=== PATIENT | female | born 1970 | race Caucasian/White ===

== ENCOUNTER 2023-06-05 09:24 | Outpatient (OUT) | payer MEDICARE, MEDICAID, SELFPAY ==
--- NOTE | 2023-06-05 09:33 | XR_ITS ---
The [address] [address] Patient Name: KEITH WASHINGTON MRN: [id number] date: 1970 Sex: F Assigned Patient Location: [facility] Current Patient Location: [facility] Accession/Order Number: [id number] Exam Date: 06/05/2023 09:39 Report Date: 06/05/2023 10:04 At the request of: QUETA COREA Procedure: XR chest 2V EXAM: XR chest 2V HISTORY: Pre Surgical Clearance COMPARISON: None. TECHNIQUE: PA and lateral views of the chest. FINDINGS: The cardiomediastinal silhouette is normal. No focal consolidation is identified. There is no pneumothorax. No pleural effusion is noted. The osseous structures are intact. XR/XR chest 2V IMPRESSION: No acute cardiopulmonary process. Electronically authenticated by: SCOTTY RAZO Date: 06/05/2023 10:04
== END 2023-06-05 09:25 | disposition home or self-care (01) ==
LOC: RAD 09:27
PROVIDERS: PCP Family Medicine; Visit Provider Orthopaedic Surgery
DX: Z01.818 Encounter for other preprocedural examination (principal); G56.01 Carpal tunnel syndrome, right upper limb
CPT/HCPCS: 71046

== ENCOUNTER 2023-07-25 14:14 | Outpatient (OUT) | payer MEDICARE, MEDICAID, SELFPAY ==
--- NOTE | 2023-07-25 14:22 | MM_ITS ---
Patient: KEITH WASHINGTON Exam Date: 07/25/2023 : 1970 Gender:F Ordering : DR LEONA FERRARO Admission #: [id number] Family : DR ERIK SMITH M.D. Order #: [id number] CLICK HERE TO VIEW EXAM RADIOLOGY REPORT PROCEDURE: MM TOMOSYNTHESIS SCREENING BI COMPARISON: MG MAMM SCREEN PATRICIA W CAD, 04/08/2019. MG MAMM SCREEN 3D PATRICIA CAD, 09/14/2021. INDICATIONS: Screening Calculator Name NCI Breast Cancer Risk Assessment Tool 5 Year Breast Cancer Risk 1.00% Lifetime Breast Cancer Risk 6.70% Personal Breast Cancer No Personal Ovarian Cancer No Treatments None Family Cancers None LOCATION: [facility] BREAST COMPOSITION: Scattered areas fibroglandular density. FINDINGS: DIAGNOSTIC CATEGORY 1--NEGATIVE. NO CHANGE FROM COMPARISON ASSESSMENT. Scattered benign-appearing calcifications are present. Scattered benign-appearing lymph nodes are present. RIGHT BREAST: No significant suspicious finding. LEFT BREAST: No significant suspicious finding. RECOMMENDATIONS: ROUTINE MAMMOGRAM AND CLINICAL EVALUATION IN 12 MONTHS. PLEASE NOTE: A NORMAL MAMMOGRAM DOES NOT EXCLUDE THE POSSIBILITY OF BREAST CANCER. A CLINICALLY SUSPICIOUS PALPABLE LUMP SHOULD BE BIOPSIED. Dictated by: Aristides Dempsey MD on 07/26/2023 at 07:53 Approved by: Aristides Dempsey MD on 07/26/2023 at 07:55
== END 2023-07-25 14:15 | disposition home or self-care (01) ==
LOC: MAMMO 14:14
PROVIDERS: PCP Family Medicine; Visit Provider Physician Assistant
DX: Z12.31 Encounter for screening mammogram for malignant neoplasm of breast (principal)
CPT/HCPCS: 77063; 77067

== ENCOUNTER 2023-09-04 09:45 | Outpatient (OUT) | payer MEDICARE, MEDICAID, SELFPAY ==
--- NOTE | 2023-09-04 09:52 | XR_ITS ---
The [address] [address] Patient Name: KEITH WASHINGTON MRN: [id number] date: 1970 Sex: F Assigned Patient Location: [facility] Current Patient Location: [facility] Accession/Order Number: [id number] Exam Date: 09/04/2023 09:57 Report Date: 09/04/2023 11:12 At the request of: LEONA CHEN Procedure: XR chest 2V EXAM: XR chest 2V HISTORY: Acute Cough R05.1 COMPARISON: 06/05/2023 TECHNIQUE: PA and lateral views of the chest. FINDINGS: The cardiomediastinal silhouette is normal. No focal consolidation is identified. There is no pneumothorax. No pleural effusion is noted. The osseous structures are intact. XR/XR chest 2V IMPRESSION: No acute cardiopulmonary process. Electronically authenticated by: SCOTTY RAZO Date: 09/04/2023 11:12
== END 2023-09-04 09:46 | disposition home or self-care (01) ==
LOC: RAD 09:48
PROVIDERS: PCP Family Medicine; Visit Provider Physician Assistant
DX: R05.1 Acute cough (principal)
CPT/HCPCS: 71046

== ENCOUNTER 2024-03-24 08:45 | Emergency (ER) | payer MEDICARE, MEDICAID, SELFPAY ==
[2024-03-24 08:57] VITALS: BP 107/66; PULSE 73; TEMP 36.8; O2SAT 96; BMI 37.1
--- OUTSIDE RECORDS SUMMARY | 2024-03-24 09:08 | XMS_ITS | CCD ---
Author Organization [facility] CliniSysd Care Team Providers Care Batting Machine Operator Name Role Phone GUIDO, DR HUMPHREY Butler Consulting Unavailable SARAH, DR VALENCIA Primary Care Unavailable MATEO, DR VARELA Attending Unavailable MATEO, DR VARELA Admitting Unavailable MATEO, DR VARELA Consulting Unavailable MALDONADORAMONE Consulting Unavailable RAMONE OKEEFE Attending Unavailable RAMONE OKEEFE Admitting Unavailable SARAH, DR VALENCIA Primary Care Unavailable SARAH, DR VALENCIA Consulting Unavailable SARAH, DR VALENCIA Primary Care Unavailable SARAH, DR VALENCIA Attending Unavailable SARAH, DR VALENCIA Admitting Unavailable WILLIAM, AMAN Consulting Unavailable SARAH, DR VALENCIA Consulting Unavailable MATEO, DR VARELA Primary Care Unavailable SARAH, DR VALENCIA Attending Unavailable SARAH, DR VALENCIA Admitting Unavailable Zieber, DR Brantley Consulting Unavailable MATEO, DR VARELA Consulting Unavailable SARAH, DR VALENCIA Primary Care Unavailable MATEO, DR VARELA Attending Unavailable MATEO, DR VARELA Admitting Unavailable ARIAS, RIC Consulting Unavailable SARAH, DR VALENCIA Primary Care Unavailable ARIAS, RIC Attending Unavailable ARIAS, RIC Admitting Unavailable Zieber, DR Brantley Consulting Unavailable SARAH, DR VALENCIA Primary Care Unavailable ARIAS, RIC Attending Unavailable ARIAS, RIC Admitting Unavailable ARIAS, RIC Consulting Unavailable SARAH, DR VALENCIA Consulting Unavailable SARAH, DR VALENCIA Primary Care Unavailable SARAH, DR VALENCIA Attending Unavailable SARAH, DR VALENCIA Admitting Unavailable Humphrey Marvin Consulting Unavailable SARAH, DR VALENCIA Primary Care Unavailable ARIAS, RIC Attending Unavailable ARIAS, RIC Admitting Unavailable ARIAS, RIC Consulting Unavailable PAY, DR RIZO Consulting Unavailable BLANCHE GALINDO Attending Unavailable BLANCHE GALINDO Admitting Unavailable SARAH, DR VALENCIA Primary Care Unavailable BLANCHE GALINDO Consulting Unavailable GUIDO, DR HUMPHREY Butler Consulting Unavailable RAMONE OKEEFE Attending Unavailable RAMONE OKEEFE Admitting Unavailable SARAH, DR VALENCIA Primary Care Unavailable MALDONADO, RAMONE Consulting Unavailable ALMA ROSA SMITH Primary Care Physician Dax Block Referring Unavailable Dax Block Attending Unavailable Dax Block Admitting Unavailable Alma Rosa Smith MD Primary Care Provider Alma Rosa Smith MD Unavailable JULIA CHEN Attending Unavailable HEMJULIA HARPER Attending Unavailable HEMJULIA HARPER Attending Unavailable NICHOLE GALINDO Attending Unavailable FERNANDO LOPEZ Attending Unavailable HEMMERJULIA Attending Unavailable HEMJULIA HARPER Attending Unavailable Isak Castillo Attending Unavailab Isak Olivera Admitting Unavailab Alma Rosa Trejo Primary Care Unavailable Allergies Allergy Classification Reported Allergen(s) Allergy Type Date of Onset Reaction(s) Facility (2 sources) Azithromycin; Translations: [Zithromax] Drug Allergy [facility] (1 source) Cephalexin Drug Allergy 1 [facility] (1 source) Corticosteroids Drug allergy (disorder) [facility] (2 sources) Morphine; Translations: [morphine] Drug Allergy [facility] (2 sources) moxifloxacin; Translations: [Avelox] Drug Allergy [facility] (2 sources) Nitrofurantoin; Translations: [Macrobid] Drug Allergy [facility] (2 sources) Azithromycin; Translations: [azithromycin] Drug Allergy 3 Eruption of skin (disorder), Unknown [facility] [place] (2 sources) Morphine; Translations: [morphine] Drug Allergy 6 Vomiting (disorder), Unknown [facility] [place] (2 sources) moxifloxacin; Translations: [moxifloxacin] Drug Allergy 3 Eruption of skin (disorder), Rash, Unknown [facility] (1 source) NITROFURANTOIN, MACROCRYSTALS / Nitrofurantoin, Monohydrate; Translations: [nitrofurantoin] Drug Allergy Skin irritation (disorder) [facility] [place] (1 source) Cephalexin Drug Allergy 3 Rash [facility] (1 source) Corticosteroids and derivatives Drug Allergy 6 Unknown [facility] (1 source) Nitrofurantoin Drug Allergy 3 Unknown [facility] (1 source) Nitrofurantoin Drug Allergy 3 Unknown [facility] Medications Current Medications Medication Drug Class(es) Dates Sig (Normalized) Sig (Original) Percocet (2 sources) Opioid Agonist Start: 03-15-2020 Percocet 7.5/3 25 1 tab(s), Oral, BID Pain 1-5, Refill(s) 0 Start Date: 03/15/20 Status: Ordered take 1 tablet by clif th every twelve hours oxyCODONE-acetaminophen (Percocet) 5-325 MG tablet Take 1 tablet by mouth every 12 (twelve) hours. PRN 0 Active [id number] 200 actuat albuterol 0.09 mg/actuat metered dose inhaler (1 source) beta2-Adrenergic Agonist Start: 10-12-2022 take 1 puff(s) by inhalation every four hours for wheezing Ventolin HFA 108 (90 Base) MCG/ACT inhaler Inhale 1 puff every 4 (four) hours if needed for wheezing or shortness of breath. 0 10/12/2022 Active albuterol 0.833 mg/ml / ipratropium bromide 0.167 mg/ml inhalation solution (2 sources) Anticholinergic, beta2-Adrenergic Agonist Start: 10-12-2022 ipratropium-albut mike (Duo-Neb) 0.5-2.5 mg/3 mL nebulizer solution Take 3 mL by nebulization every 6 (six) hours. PRN 0 10/12/2022 Active Start: 03-15-2020 albuterol-ipra tropium See Instructions, Refill(s) 0, 2 inhalations 6 times per day Start Date: 03/15/20 Status: Ordered atenolol 50 mg oral tablet (2 sources) beta-Adrenergic Britt Start: 03-15-2020 take 1 tablet by mouth once daily atenolol 50 mg Tab 50 mg = 1 tab(s), Oral, Daily, Refills(s) 0 Start Date: 03/15/20 Status: Ordered clonazePAM 1 mg oral tablet (2 sources) Benzodiazepine Start: 03-15-2020 take 1 tablet by mouth three times daily Klonopin 1 mg Tab 1 mg = 1 tab(s), Oral, TID, Refills(s) 0 Start Date: 03/15/20 Status: Ordered docusate sodium 100 mg oral capsule (1 source) Docusate Sodium (DSS) 100 MG capsule Take 100 mg by mouth every 12 (twelve) hours if needed. 0 Active empagliflozin 10 mg oral tablet (1 source) Sodium-Glucose Cotransporter 2 Inhibitor take 1 tablet by mouth once daily Jardiance 10 MG Take 1 tablet by mouth 1 (one) time each day at the same time. 0 Active escitalopram 20 mg oral tablet (2 sources) Serotonin Reuptake Inhibitor Start: 03-15-2020 take 1 tablet by mouth once daily escitalopram (Lexapro) 20 MG tablet Take 1 tablet by mouth 1 (one) time each day. 0 03/21/2023 Active fluticasone propionate 0.05 mg/actuat metered dose nasal spray (1 source) Corticosteroid fluticasone (Flonase) 50 MCG/ACT nasal spray 1 spray 1 (one) time each day at the same time. 0 Active fluticasone 0.05 mg/inh Nasal [place] (1 source) Start: 03-15-2020 fluticasone 0.05 mg/inh Nasal [place] 1 spray(s), Nasal, BID, Refill(s) 0 Start Date: 03/15/20 Status: Ordered ibuprofen 800 mg oral tablet (1 source) Nonsteroidal Anti-inflammatory Drug Start: 06-06-2023 take 1 tablet by mouth three times daily after mealtime ibuprofen 800 MG tablet TAKE 1 TABLET BY MOUTH THREE TIMES A DAY AFTER MEALS 0 06/06/2023 Active meclizine hydrochloride 25 mg oral tablet (2 sources) Antiemetic Start: 03-15-2020 take 1 tablet by mouth three times daily Antivert 25 mg Tab 25 mg = 1 tab(s), Oral, TID, Refills(s) 0 Start Date: 03/15/20 Status: Ordered take 1 tablet by clif th every twenty-four hours as needed for nausea meclizine (Antivert) 25 MG tablet Take 1 tablet by mouth Daily as needed for nausea. 0 Active meloxicam 15 mg oral tablet (2 sources) Nonsteroidal Anti-inflammatory Drug Start: 03-15-2020 take 1 tablet by mouth once daily as needed for pain Mobic 15 mg Tab 15 mg = 1 tab(s), Oral, Daily, PRN Pain, Refills(s) 0 Start Date: 03/15/20 Status: Ordered Multivitamin, Therapeutic w/ Minerals (1 source) Start: 03-16-2020 take 1 tablet by mouth once daily Multivitamin, Therapeutic w/ Minerals 1 tab(s), Oral, Daily, Refill(s) 0 Start Date: 03/16/20 Status: Ordered omeprazole 20 mg delayed release oral capsule (2 sources) Proton Pump Inhibitor Start: 03-15-2020 take 1 capsule by mouth twice daily omeprazole 20 mg Cap-DR 20 mg = 1 cap(s), Oral, BID Start Date: 03/15/20 Status: Ordered ondansetron 4 mg oral tablet (1 source) Serotonin-3 Receptor Antagonist ondansetron (Zofran) 4 MG tablet Take 4 mg by mouth every 12 (twelve) hours if needed. 0 Active Potassium Chloride (2 sources) Start: 03-15-2020 Klor-Con M20 20 mEq, Oral, Daily, Refills(s) 0 Start Date: 03/15/20 Status: Ordered take 1 tablet by mouth once jonathan y potassium chloride CR (Klor-Con M20) 20 MEQ ER tablet Take 1 tablet by mouth 1 (one) time each day at the same time. 0 Active SITagliptin 100 mg oral tablet (1 source) Dipeptidyl Peptidase 4 Inhibitor Start: 03-15-2020 take 1 tablet by mouth once daily Januvia 100 mg Tab 100 mg = 1 tab(s), Oral, Daily Start Date: 03/15/20 Status: Ordered Tirzepatide (Mounjaro) 5 MG/0.5ML solution pen-injector (1 source) Start: 09-21-2023 Tirzepatide (Mounjaro) 5 MG/0.5ML solution pen-injector Indications: Type 2 diabetes mellitus with stage 2 chronic kidney disease, without long-term current use of insulin ([facility]) INJECT 5 MG UNDER THE SKIN ONE TIME PER WEEK 2 mL 2 09/21/2023 Active tiZANidine 4 mg oral tablet (2 sources) Central alpha-2 Adrenergic Agonist Start: 03-25-2023 take 1 tablet by mouth every eight hours as needed tiZANidine (Zanaflex) 4 MG tablet Take 1 tablet by mouth every 8 (eight) hours if needed for muscle spasms. 0 03/25/2023 Active Start: 03-15-2020 take 1 tablet by clif th twice daily as needed for muscle spasms Zanaflex 4 mg Tab 4 mg = 1 tab(s), Oral, BID, PRN Spasm, Refills(s) 0 Start Date: 03/15/20 Status: Ordered 30 actuat umeclidinium 0.0625 mg/actuat / vilanterol 0.025 mg/actuat dry powder inhaler (1 source) Anticholinergic, beta2-Adrenergic Agonist Start: 10-12-2022 take 1 puff(s) by inhalation once daily Umeclidinium-Vilanterol (Anoro Ellipta) 62.5-25 MCG/ACT aerosol powder Inhale 1 puff 1 (one) time each day at the same time. 0 10/12/2022 Active Completed/Discontinued Medications Medication Drug Class(es) Dates Sig (Normalized) Sig (Original) levothyroxine (2 sources) l-Thyroxine Start: 03-15-2020 take 1 tablet by mouth once daily Synthroid 75 mcg (0.075 mg) Tab 75 microgram = 1 tab(s), Oral, Daily, Refills(s) 0 Start Date: 03/15/20 Status: Ordered take 1 tablet by mouth before me altime Synthroid 75 MCG tablet Take 1 tablet by mouth in the morning. Take before meals. 0 Active Problems Active Problems Problem Classification Problem Date Documented Da te Episodic/Chronic Anxiety disorders (4 sources) Anxiety disorder, unspecified; Translations: [Anxiety] Onset: 02-28-2008 03-15-2020 Chronic Asthma (2 sources) Uncomplicated moderate persistent asthma; Translations: [Moderate persistent asthma, uncomplicated] Onset: 02-28-2008 Resolved: 04-16-2023 04-16-2023 Chronic Chronic kidney disease (1 source) Chronic kidney disease stage 3A ; Translations: [Stage 3a chronic kidney disease (HCC)] Onset: 03-31-2023 03-31-2023 Chronic Chronic obstructive pulmonary disease and bronchiectasis (5 sources) Chronic obstructive pulmonary disease, unspecified; Translations: [Chronic obstructive lung disease] Onset: 02-14-2022 03-15-2020 Chronic Conditions associated with dizziness or vertigo (1 source) Meniere's disease; Translations: [Meniere's disease, unspecified ear] Onset: 04-15-2023 04-15-2023 Chronic Diabetes mellitus with complications (2 sources) Type 2 diabetes mellitus; Translations: [Type 2 diabetes mellitus with diabetic chronic kidney disease] Onset: 10-18-2017 Resolved: 04-16-2023 03-31-2023 Chronic Disorders of lipid metabolism (1 source) Pure hypercholesterolemia ; Translations: [Pure hypercholesterolemia , unspecified] Onset: 03-31-2023 03-31-2023 Chronic Esophageal disorders (3 sources) Gastro-esophageal reflux disease without esophagitis; Translations: [Gastroesophageal reflux disease] Onset: 04-14-2022 03-15-2020 Chronic Essential hypertension (4 sources) Essential (primary) hypertension; Translations: [Hypertensive disorder] Onset: 08-22-2021 03-15-2020 Chronic Menstrual disorders (4 sources) Excessive and frequent menstruation with regular cycle; Translations: [EXCESS FREQ MENSTRUATION W/REG CYCL] Onset: 07-22-2022 Chronic Mood disorders (4 sources) Major depressive disorder, single episode, unspecified; Translations: [Depressive disorder] Onset: 11-22-2015 03-15-2020 Chronic Other ear and sense organ disorders (1 source) Sensorineural hearing loss, bilateral; Translations: [Sensorineural hearing loss, bilateral] Onset: 03-31-2023 03-31-2023 Chronic Other ear and sense organ disorders (1 source) Chronic non-infective otitis externa; Translations: [Other otitis externa, bilateral] Onset: 04-15-2023 04-15-2023 Chronic Other endocrine disorders (1 source) Drug-induced adrenocortical insufficiency; Translations: [Drug-induced adrenocortical insufficiency] Onset: 04-15-2023 04-15-2023 Chronic Other female genital disorders (1 source) Abnormal uterine bleeding; Translations: [Other specified abnormal uterine and vaginal bleeding] Onset: 04-15-2023 04-15-2023 Chronic Other gastrointestinal disorders (1 source) Irritable bowel syndrome without diarrhea; Translations: [IRRITABLE BOWEL SYND W/O DIARRHEA] Onset: 02-14-2022 Chronic Other gastrointestinal disorders (2 sources) Irritable bowel syndrome; Translations: [Irritable bowel syndrome without diarrhea] Onset: 04-07-2008 03-15-2020 Chronic Other inflammatory condition of skin (1 source) Rosacea; Translations: [Other rosacea] Onset: 04-15-2023 04-15-2023 Chronic Other nervous system disorders (1 source) Bilateral carpal tunnel syndrome; Translations: [Carpal tunnel syndrome, bilateral upper limbs] Onset: 04-24-2023 04-24-2023 Chronic Other nervous system disorders (1 source) Disorder of muscle; Translations: [Myopathy, unspecified] Onset: 07-26-2023 07-26-2023 Chronic Other nutritional; endocrine; and metabolic disorders (1 source) Morbid obesity; Translations: [Morbid (severe) obesity due to excess calories] Onset: 04-15-2023 04-15-2023 Chronic Other upper respiratory infections (2 sources) Chronic pansinusitis; Translations: [Chronic pansinusitis] Onset: 03-21-2019 Resolved: 04-16-2023 04-16-2023 Chronic Substance-related disorders (2 sources) Nicotine dependence, cigarettes, uncomplicated; Translations: [Smoker] Onset: 08-22-2021 03-31-2023 Chronic Thyroid disorders (3 sources) Hypothyroidism, unspecified; Translations: [Hypothyroidism] Onset: 02-28-2008 03-15-2020 Chronic Unclassified (4 sources) COUGH, UNSPECIFIED; Translations: [COUGH, UNSPECIFIED] Onset: 04-17-2022 Unclassified (4 sources) CONTACT W/AND (SUSP) EXPOS COVID-19; Translations: [CONTACT W/AND (SUSP) EXPOS COVID-19] Onset: 04-17-2022 Past or Other Problems Problem Classification Problem Date Documented Da te Episodic/Chronic Conditions associated with dizziness or vertigo (2 sources) Dizziness and giddiness; Translations: [Dizziness] Onset: 11-22-2015 04-16-2023 Episodic Diseases of mouth; excluding dental (2 sources) Chronic glossitis; Translations: [Glossitis] Onset: 05-16-2023 05-16-2023 Episodic E Codes: Adverse effects of medical drugs (1 source) Antidepressant drug adverse reaction; Translations: [Adverse effect of unspecified antidepressants, initial encounter] Onset: 11-22-2015 04-16-2023 Episodic Gastritis and duodenitis (1 source) Acute gastritis; Translations: [Acute gastritis without bleeding] Onset: 02-28-2008 Resolved: 04-16-2023 04-16-2023 Episodic Hepatitis (1 source) Unspecified viral hepatitis C without hepatic coma; Translations: [UNS VIRAL HEPATITIS C W/O HEP COMA] Onset: 10-06-2021 Episodic Intestinal infection (1 source) Rotaviral enteritis; Translations: [ROTAVIRAL ENTERITIS] Onset: 02-14-2022 Episodic Malaise and fatigue (3 sources) Other fatigue; Translations: [OTHER FATIGUE] Onset: 08-20-2021 Episodic Mood disorders (1 source) Mood disorders Onset: 04-16-2023 04-16-2023 Neoplasms of unspecified nature or uncertain behavior (1 source) 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; Translations: [Neoplasm of uncertain behavior of other specified digestive organs] Onset: 04-15-2023 04-15-2023 Episodic Other aftercare (1 source) Other salvage determiner (current) drug therapy; Translations: [OTH HALF-WAY CURRENT DRUG THERAPY] Onset: 04-14-2022 Episodic Other and unspecified benign neoplasm (1 source) 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; Translations: [Benign neoplasm of liver] Onset: 09-10-2009 04-15-2023 Episodic Other and unspecified benign neoplasm (1 source) Benign neoplasm of skin; Translations: [Other benign neoplasm of skin, unspecified] Onset: 09-27-2009 04-15-2023 Episodic Other circulatory disease (1 source) Personal history of transient ischemic attack (TIA), and cerebral infarction without residual deficits; Translations: [PERS HX TIA AND CI NO RESID DEFICIT] Onset: 02-14-2022 Episodic Other circulatory disease (2 sources) History of transient ischemic attack; Translations: [Personal history of transient ischemic attack (TIA), and cerebral infarction without residual deficits] Onset: 07-31-2023 03-15-2020 Episodic Other connective tissue disease (1 source) Myalgia, unspecified site; Translations: [MYALGIA UNSPECIFIED SITE] Onset: 04-14-2022 Episodic Other connective tissue disease (1 source) Abdominal muscle pain; Translations: [Myalgia, other site] Onset: 02-28-2008 04-15-2023 Episodic Other connective tissue disease (1 source) Muscle pain; Translations: [Myalgia, unspecified site] Onset: 07-04-2023 07-04-2023 Episodic Other ear and sense organ disorders (1 source) Bilateral tinnitus; Translations: [Tinnitus, bilateral] Onset: 04-15-2023 04-15-2023 Episodic Other female genital disorders (1 source) Abnormal vaginal bleeding; Translations: [Abnormal uterine and vaginal bleeding, unspecified] Onset: 07-26-2016 Resolved: 04-16-2023 04-16-2023 Chronic Other female genital disorders (1 source) Swelling of vagina; Translations: [Noninflammatory disorder of vagina, unspecified] Onset: 04-15-2023 04-15-2023 Episodic Other gastrointestinal disorders (3 sources) Diarrhea, unspecified; Translations: [DIARRHEA UNSPECIFIED] Onset: 02-10-2022 Episodic Other gastrointestinal disorders (1 source) History of gastritis; Translations: [Personal history of other diseases of the digestive system] Onset: 04-16-2023 04-16-2023 Episodic Other inflammatory condition of skin (4 sources) Pruritus, unspecified; Translations: [PRURITUS UNSPECIFIED] Onset: 09-26-2021 Episodic Other nervous system disorders (1 source) Abnormal gait; Translations: [Unspecified abnormalities of gait and mobility] Onset: 04-15-2023 04-15-2023 Episodic Other nervous system disorders (1 source) Notalgia paresthetica; Translations: [Paresthesia of skin] Onset: 04-15-2023 04-15-2023 Episodic Other nutritional; endocrine; and metabolic disorders (2 sources) Body mass index 40+ - severely obese; Translations: [Body mass index (BMI) 45.0-49.9, adult] Onset: 07-31-2023 Resolved: 07-31-2023 03-16-2020 Chronic Other screening for suspected conditions (not mental disorders or infectious disease) (4 sources) Encounter for screening mammogram for malignant neoplasm of breast; Translations: [ENC SCR MAMMO MALIG NEOPLASM BREAST] Onset: 09-14-2021 Episodic Other skin disorders (2 sources) Infection of sebaceous cyst; Translations: [Sebaceous cyst] Onset: 07-31-2023 03-16-2020 Episodic Other upper respiratory infections (1 source) Acute pharyngitis, unspecified; Translations: [ACUTE PHARYNGITIS UNSPECIFIED] Onset: 12-30-2021 Episodic Pancreatic disorders (not diabetes) (5 sources) Cyst of pancreas; Translations: [Cyst of pancreas] Onset: 08-11-2022 Episodic Residual codes; unclassified (1 source) Acquired absence of other specified parts of digestive tract; Translations: [ACQ ABSENCE OTH PART DIGESTV TRACT] Onset: 02-14-2022 Episodic Residual codes; unclassified (1 source) Patient's other noncompliance with medication regimen; Translations: [PT OTH NONCOMPLIANCE W/ MED REGIMEN] Onset: 08-22-2021 Episodic Spondylosis; intervertebral disc disorders; other back problems (1 source) Low back pain; Translations: [Low back pain] Onset: 02-28-2008 04-16-2023 Episodic Unclassified (1 source) COUGH, UNSPECIFIED; Translations: [COUGH, UNSPECIFIED] Onset: 04-20-2022 Unclassified (1 source) CONTACT W/AND (SUSP) EXPOS COVID-19; Translations: [CONTACT W/AND (SUSP) EXPOS COVID-19] Onset: 04-13-2022 Results Test Name Value Interpretation Reference Range Facility Physician Orderon 06-05-2023 Physician Order [id number]:127 Normal [facility] BMPon 05-09-2023 Anion gap [Moles/Vol] 10 mmol/L Normal 6-16 [facility] Comment on above: Performed By: #### 2 [id number] #### [facility] [address] [place] [address] Calcium [Mass/Vol] 9.1 mg/dL Normal 8.9-11.1 [facility] Comment on above: Performed By: #### 2 [id number], [id number] #### [facility] [address] [place] [address] Chloride [Moles/Vol] 104 mmol/L Normal 101-111 [facility] Comment on above: Performed By: #### 2 [id number], [id number] #### [facility] [address] [place] [address] CO2 [Moles/Vol] 27 mmol/L Normal 21-31 [facility] Comment on above: Performed By: #### 2 [id number], [id number] #### [facility] [address] [place] [address] Creatinine [Mass/Vol] 0.7 mg/dL Normal 0.5-1.3 [facility] Comment on above: Performed By: #### 2 [id number], [id number] #### [facility] [address] [place] [address] Glucose [Mass/Vol] 136 mg/dL Normal 55-199 [facility] Comment on above: Result Comment: If t his glucose result represents a fasting glucose, interpretation should refer to the following reference range: 55-99 mg/dL Performed By: #### 2 [id number], [id number] #### [facility] [address] [place] [address] Potassium [Moles/Vol] 4.4 mmol/L Normal 3.5-5.3 [facility] Comment on above: Performed By: #### 2 [id number], [id number] #### [facility] [address] [place] [address] Sodium [Moles/Vol] 137 mmol/L Normal 135-145 [facility] Comment on above: Performed By: #### 2 [id number], [id number] #### [facility] [address] [place] [address] Urea nitrogen [Mass/Vol] 8 mg/dL Normal 5-21 [facility] Comment on above: Performed By: #### 2 [id number], [id number] #### [facility] [address] [place] [address] Urea nitrogen/Creatinine [Mass ratio] 11 No Units Normal 10-20 [facility] Comment on above: Performed By: #### 2 [id number], [id number] #### [facility] [address] [place] [address] CBC w/Indiceson 05-09-2023 Erythrocyte distribution width (RBC) [Ratio] 14.6 % High 10.9-14.2 [facility] Comment on above: Performed By: #### 2 [id number], [id number] #### [facility] [address] [place] [address] Hematocrit (Bld) [Volume fraction] 43.8 % Normal 34.0-46.0 [facility] Comment on above: Performed By: #### 2 [id number], [id number] #### [facility] [address] [place] [address] Hemoglobin (Bld) [Mass/Vol] 14.9 g/dL Normal 12.0-16.0 [facility] Comment on above: Performed By: #### 2 [id number], [id number] #### [facility] [address] [place] [id number] MCH (RBC) [Entitic mass] 29.2 pg Normal 27.0-34.0 [facility] Comment on above: Performed By: #### 2 [id number], [id number] #### [facility] [address] [place] [address] MCHC (RBC) [Mass/Vol] 34.0 g/dL Normal 31.4-36.0 [facility] Comment on above: Performed By: #### 2 [id number], [id number], [id number] #### [facility] [address] [place] [address] MCV (RBC) [Entitic vol] 86.1 fL Normal 80.0-100.0 [facility] Comment on above: Performed By: #### 2 [id number], [id number], [id number] #### [facility] [address] [place] [address] Platelet mean volume (Bld) [Entitic vol] 8.3 fL Normal 6.4-10.8 [facility] Comment on above: Performed By: #### 2 [id number], [id number], [id number] #### [facility] [address] [place] [address] Platelets (Bld) [#/Vol] 229.0 E9/L Normal 150.0-500.0 [facility] Comment on above: Performed By: #### 2 [id number], [id number], [id number] #### [facility] [address] [place] [address] RBC (Bld) [#/Vol] 5.1 E12/L Normal 4.3-5.9 [facility] Comment on above: Performed By: #### 2 [id number], [id number] #### [facility] [address] [place] [address] WBC corrected for nucl RBC Auto (Bld) [#/Vol] 8.1 E9/L Normal 4.0-11.0 [facility] Comment on above: Performed By: #### 2 [id number], [id number], [id number] #### [facility] [address] [place] [address] CHEMISTRYOrdered By: SYSTEM SYSTEM on 05-09-2023 Anion gap [Moles/Vol] 10 mmol/L Normal 6 - 16 mEq/L [facility] Remisol Calcium [Mass/Vol] 9.1 mg/dL Normal 8.9 - 11. 1 mg/dL [facility] Remisol Chloride [Moles/Vol] 104 mmol/L Normal 101 - 1 11 mmol/L [facility] Remisol CO2 [Moles/Vol] 27 mmol/L Normal 21 - 31 mmol/L [facility] Remisol Creatinine [Mass/Vol] 0.7 mg/dL Normal 0.5 - 1.3 mg/dL [facility] Remisol GFR/1.73 sq M.predicted among non-blacks MDRD (S/P/Bld) [Vol rate/Area] 103 mL/min/1.73 m2 Normal >=59mL/min/1.7 3 m2 [facility] Chem S Glucose [Mass/Vol] 136 mg/dL Normal 55 - 199 mg/dL [facility] Potassium [Moles/Vol] 4.4 mmol/L Normal 3.5 - 5.3 mmol/L [facility] Remisol Sodium [Moles/Vol] 137 mmol/L Normal 135 - 145 mmol/L [facility] Urea nitrogen [Mass/Vol] 8 mg/dL Normal 5 - 21 mg/dL [facility] Urea nitrogen/Creatinine [Mass ratio] 11 mg/mg Normal 10 - 20 [facility] Consent for Treatmenton 04-24 Consent for Treatment [id number] Normal [facility] HEMATOLOGYOrdered By: Serjio Wolfe on 05-09-2023 Erythrocyte distribution width (RBC) [Ratio] 14.6 % High 10.9 - 14.2 % [facility] Hematocrit (Bld) [Volume fraction] 43.8 % Normal 34.0 - 46.0 % [facility] Hemoglobin (Bld) [Mass/Vol] 14.9 g/dL Normal 12.0 - 16.0 gm/dL [facility] MCH (RBC) [Entitic mass] 29.2 pg Normal 27.0 - 34.0 pg [facility] MCHC (RBC) [Mass/Vol] 34.0 g/dL Normal 31.4 - 36.0 gm/dL [facility] MCV (RBC) [Entitic vol] 86.1 fL Normal 80.0 - 100.0 fL [facility] Platelet mean volume (Bld) [Entitic vol] 8.3 fL Normal 6.4 - 10.8 fL [facility] Platelets (Bld) [#/Vol] 229.0 E9/L Normal 150.0 - 500.0 E9/L [facility] RBC (Bld) [#/Vol] 5.1 E12/L Normal 4.3 - 5.9 E12/L [facility] WBC corrected for nucl RBC Auto (Bld) [#/Vol] 8.1 E9/L Normal 4.0 - 11.0 E9/L [facility] eGFRon 05-09-2023 GFR/1.73 sq M.predicted among non-blacks MDRD (S/P/Bld) [Vol rate/Area] 103 mL/min/1.73 m2 Normal >=59 [facility] Comment on above: Order Comment: Order added by Discern Expert. Result Comment: Supervisor [employer] iona kidney disease could be indicated at eGFR's of less than 60 mL/min/1.73m2. Kidney failure is indicated at less than 15 mL/min/1.73m2. Performed By: #### 2 [id number], [id number], [id number] #### [facility] [address] [place] [address] MRI ABDOMEN WO W CONon 08-15 MRI ABDOMEN WO W CON EXAM: MRI ABDOMEN W O W CON HISTORY: Cyst of pancreas COMPARISON: 12/01/2020 TECHNIQUE: MRI images of the pancreas were obtained with and without intravenous contrast. ABDOMEN/PELVIS FINDINGS: Lower Chest: Unremarkable. Liver: Normal hepatic signal and contour. Biliary/Gallbladder: Unremarkable. Pancreas: A multilobular lesion is again noted at the head of the pancreas demonstrating T2 hyperintensity and no appreciable enhancement. A couple of fine septations are noted within the lesion. The lesion measures 3.6 x 2.6 x 3.2 cm and previously measured 3.4 x 2.6 x 3.2 cm. No pancreatic ductal dilatation is identified. Spleen: Unremarkable. Adrenal Glands: Unremarkable. Kidneys: Unremarkable. Gastrointestinal/Libby toneum: No acute abnormality. Vascular: Unremarkable. Lymph Nodes: No enlarged lymph nodes by CT size criteria. Bones: No acute osseous abnormality. Soft tissues: A small anterior abdominal wall hernia containing fat is present. Postoperative changes are noted at the anterior abdominal wall. IMPRESSION: 1. Stable cystic lesion at the head of the pancreas measuring up to 3.6 cm in greatest dimension. The long-term stability and low risk features favors a benign etiology such as a cyst or pseudocyst. Continued long-term surveillance is recommended with a repeat MRI in 2 years. Electronically authenticated by: AMAN THOMAS Date: 2022-08-15 09:36 Normal The [facility] CREATININEon 08-11-2022 Creatinine [Mass/Vol] 0.79 mg/dL Normal 0.55-1.02 [facility] Comment on above: Performed By: #### G IPANEL #### [facility] [address] [address] [address] Steven Simon EGFR-AF ARMENIAN >60 Normal >=60 The [facility] Comment on above: Performed By: #### G IPANEL #### [facility] [address] [place], [place] [address] Dr. Steven Simon EGFR-NON AF ARMENIAN >60 Normal >=60 [facility] Comment on above: Performed By: #### G IPANEL #### [facility] [address] [place], [place] [address] Dr. Steven Simon US PELVIS AND TRANSVAGon US PELVIS AND TRANSVAG EXAMINATION: US PELVIS AND TRANSVAG HISTORY: Excessive and frequent menstruation COMPARISON: No relevant comparison available. FINDINGS: The uterus is normal in size, contour and echotexture measuring 8.6 x 5.8 x 4.8 cm retroflexed. No focal myometrial mass The endometrium measures 8 mm, normal. Areas of anechoic echogenicity in the cervix measuring up to 1.6 cm, nabothian cysts are favored The right ovary is normal in appearance measuring 4.3 x 2.4 x 1.9 cm. Normal color and Doppler flow. The left ovary is normal in appearance measuring 4.3 x 2.6 x 2.1 cm. Normal color and Doppler flow IMPRESSION: No acute abnormality Electronically authenticated by: HUMPHREY LORA Date: 2022-07-24 07:22 Normal The [facility] XR CHEST 2 Von 04-20-2022 XR CHEST 2 V EXAM: XR CHEST 2 V HISTORY: Cough. COMPARISON: 04/13/2022 TECHNIQUE: Frontal and lateral chest FINDINGS: Heart and vascularity are unremarkable. Lungs are expanded and free of focal infiltrates. No acute bony abnormality is appreciated. IMPRESSION: No acute heart or lung disease identified. Electronically authenticated by: HUMPHREY MARVIN Date: 2022-04-20 07:59 Normal [facility] Covid-19 PCR (CVDTBH)on 03-25 SARS-CoV-2 (COVID-19) RNA TATIANA+probe Ql (Unsp spec) Not detected Normal NOT DETECTED [facility] Comment on above: Result Comment: When diagnostic testing is negative, the possibility of a false negative should be considered in the context of a patient's recent exposures and the presence of clinical signs and symptoms consistent with SARS-CoV-2. This test is not yet approved or cleared by the [place] FDA. When there are no FDA-approved or cleared tests available, and other criteria are met, FDA can make tests available under an emergency access mechanism called an Emergency Use Authorization (EUA). The EUA for this test is supported by the [place] of Health and Human Service's declaration that circumstances exist to justify the emergency use of in vitro diagnostics for the detection and/or diagnosis of the virus that causes COVID-19. This EUA will remain in effect for the duration of the COVID-19 declaration justifying emergency of IVDs, unless it is terminated or revoked by the FDA (after which the test may no longer be used). Performed By: #### G IPANEL #### [facility] [address] [address] [address] Steven Simon XR CHEST 1 Von 04-13-2022 XR CHEST 1 V EXAMINATION: XR CHES T 1 V HISTORY: COUGH COMPARISON: 12/29/2021 TECHNIQUE: AP portable erect FINDINGS: LUNGS: No significant pulmonary parenchymal abnormalities. VASCULATURE: No increased pulmonary vasculature. PLEURA: No pneumothorax, effusion, or pleural thickening. Slight elevation of the right hemidiaphragm CARDIAC: No cardiomegaly or cardiac silhouette abnormality. MEDIASTINUM: No visible mass or adenopathy. BONES: No fracture or visible bone lesion. OTHER: Negative. IMPRESSION: No acute disease. Electronically authenticated by: HUMPHREY LORA Date: 2022-04-13 10:15 Normal [facility] GIARDIA LAMBLIA AND CRYPTO D ETECTIONon 04-11-2022 Cryptosporidium EIA Negative Normal Negative The [facility] Comment on above: Performed By: #### G IACRY #### [facility] [address] [place] [address] Dr. Steven Simon Giardia lamblia Ag, EIA Negative Normal Negative [facility] Comment on above: Performed By: #### G IACRY #### [facility] [address] [place] [address] [address] Steven Simon OVA AND PARASITE EXAMINATION on 04-11-2022 O AND P Exam, Formalin Only Final report Normal [facility] Comment on above: Result Comment: Refe rence Range: None Seen No PVA preserved specimen received. For optimal O and P results we suggest the use of O and P kits containing both formalin and PVA. These kits are available from your tax services professional. Performed By: #### E RUR #### [facility] [address] [place] [address] Dr. Steven Simon Result 1 Comment Normal [facility] Comment on above: Result Comment: No o va, cysts, or parasites seen. . One negative specimen does not rule out the possibility of a parasitic infection. Performed By: #### E RUR #### [facility] [address] [place] [address] Dr. Steven Simon CBC AUTO DIFFon 02-10-2022 BASO # 0.0 103/ul Normal 0.0-0.1 [facility] Comment on above: Performed By: #### C BC #### [facility] [address] [place] [address] Dr. Steven Simon Basophils/100 WBC (Bld) 0.2 % Normal 0.2-2.0 [facility] Comment on above: Performed By: #### C BC #### [facility] [address] [place] [address] Dr. Steven Simon EO # 0.0 103/ul Normal 0.0-0.7 [facility] Comment on above: Performed By: #### C BC #### [facility] [address] [place] [address] Dr. Steven Simon Eosinophils/100 WBC (Bld) 0.6 % Critically low 0.9-7.0 [facility] Comment on above: Performed By: #### C BC #### [facility] [address] [place] [address] Dr. Steven Simon Erythrocyte distribution width (RBC) [Ratio] 13.8 % Normal 11.0-15.0 [facility] Comment on above: Performed By: #### C BC #### [facility] [address] [place] [address] Dr. Steven Simon Hematocrit (Bld) [Volume fraction] 46.6 % Normal 36.0-48.0 [facility] Comment on above: Performed By: #### C BC #### [facility] [address] [place] [address] Dr. Steven Simon Hemoglobin (Bld) [Mass/Vol] 14.9 g/dL Normal 12.0-16.0 [facility] Comment on above: Performed By: #### C BC #### [facility] [address] [place] [address] Dr. Steven Simon IG # 0.02 10e3/ul Normal 0.00-0.03 [facility] Comment on above: Performed By: #### C BC #### [facility] [address] [place] [address] Dr. Steven Simon IG % 0.3 % Normal 0.0-0.5 [facility] Comment on above: Performed By: #### C BC #### [facility] [address] [place] [address] Dr. Steven Simon LYMPH # 1.4 103/ul Normal 1.2-3.8 [facility] Comment on above: Performed By: #### C BC #### [facility] [address] [place] [address] Dr. Steven Simon Lymphocytes/100 WBC (Bld) 21.4 % Normal 20.5-60.0 [facility] Comment on above: Performed By: #### C BC #### [facility] [address] [place] [address] Dr. Steven Simon MANUAL DIFF REQ NO Normal [facility] Comment on above: Performed By: #### C BC #### [facility] [address] [place] [address] Dr. Steven Simon MCH (RBC) [Entitic mass] 28.9 pg Normal 26.7-34.0 [facility] Comment on above: Performed By: #### C BC #### [facility] [address] [place] [address] Dr. Steven Simon MCHC (RBC) [Mass/Vol] 32.0 g/dL Normal 29.9-35.2 [facility] Comment on above: Performed By: #### C BC #### [facility] [address] [place] [address] Dr. Steven Simon MCV (RBC) [Entitic vol] 90.5 fL Normal 81.0-99.0 [facility] Comment on above: Performed By: #### C BC #### [facility] [address] [address] [address] Steven Simon MONO # 0.9 103/ul Critically high 0.3-0.8 [facility] Comment on above: Performed By: #### C BC #### [facility] [address] [place] [address] [address] Steven Simon Monocytes/100 WBC (Bld) 13.7 % Critically high 1.7-12.0 [facility] Comment on above: Performed By: #### C BC #### [facility] [address] [place] [address] Dr. Steven Simon NEUT # 4.1 103/ul Normal 1.4-6.5 [facility] Comment on above: Performed By: #### C BC #### [facility] [address] [place] [address] Dr. Steven Simon Neutrophils/100 WBC (Bld) 63.8 % Normal 43.0-75.0 [facility] Comment on above: Performed By: #### C BC #### [facility] [address] [place] [address] Dr. Steven Simon Platelet mean volume (Bld) [Entitic vol] 9.9 fL Normal 9.5-13.5 [facility] Comment on above: Performed By: #### C BC #### [facility] [address] [place] [address] Dr. Steven Simon PLT 195 103/ul Normal 150-450 [facility] Comment on above: Performed By: #### C BC #### [facility] [address] [place] [address] Dr. Steven Simon RBC 5.15 106/ul Normal 4.20-5.40 [facility] Comment on above: Performed By: #### C BC #### [facility] [address] [place] [address] Dr. Steven Simon WBC 6.4 103/ul Normal 4.0-11.0 [facility] Comment on above: Performed By: #### C BC #### [facility] [address] [place] [address] Dr. Steven Simon Covid-19 PCR (CVDTBH)on 01-23 SARS-CoV-2 (COVID-19) RNA TATIANA+probe Ql (Unsp spec) Not detected Normal NOT DETECTED [facility] Comment on above: Result Comment: When diagnostic testing is negative, the possibility of a false negative should be considered in the context of a patient's recent exposures and the presence of clinical signs and symptoms consistent with SARS-CoV-2. This test is not yet approved or cleared by the [place] FDA. When there are no FDA-approved or cleared tests available, and other criteria are met, FDA can make tests available under an emergency access mechanism called an Emergency Use Authorization (EUA). The EUA for this test is supported by the [place] of Health and Human Service's declaration that circumstances exist to justify the emergency use of in vitro diagnostics for the detection and/or diagnosis of the virus that causes COVID-19. This EUA will remain in effect for the duration of the COVID-19 declaration justifying emergency of IVDs, unless it is terminated or revoked by the FDA (after which the test may no longer be used). Performed By: #### C VDTBH #### [facility] [address] [place] [address] Dr. Steven Simon GI PANEL (PCR)on 02-10-2022 Adenovirus F 40/41 Not detected Normal NOT DETECTED [facility] Comment on above: Performed By: #### G IPANEL #### [facility] [address] [place] [address] Dr. Steven Simon Astrovirus Not detected Normal NOT DETECTED The [facility] Comment on above: Performed By: #### G IPANEL #### [facility] [address] [place] [address] Dr. Steven Brand. Diff toxin A/B Not detected Normal NOT DETECTED [facility] Comment on above: Performed By: #### G IPANEL #### [facility] [address] [place] [address] Dr. Steven Simon Campylobacter Not detected Normal NOT DETECTED [facility] Comment on above: Performed By: #### G IPANEL #### [facility] [address] [place] [address] Dr. Steven Simon Cryptosporidium Not detected Normal NOT DETECTED The [facility] Comment on above: Performed By: #### G IPANEL #### [facility] [address] [address] [address] Steven Simon Cyclos. Cayetanensis Not detected Normal NOT DETECTED [facility] Comment on above: Performed By: #### G IPANEL #### [facility] [address] [place] [address] Dr. Steven Simon E. Coli O157 Not Applicable Normal Not Applicable [facility] Comment on above: Performed By: #### G IPANEL #### [facility] [address] [place] [address] Dr. Steven Simon E. histolytica Not detected Normal NOT DETECTED The [facility] Comment on above: Performed By: #### G IPANEL #### [facility] [address] [place] [address] Dr. Steven Simon EAEC Not detected Normal NOT DETECTED The [facility] Comment on above: Performed By: #### G IPANEL #### [facility] [address] [place] [address] Dr. Steven Simon EIEC Not detected Normal NOT DETECTED The [facility] Comment on above: Performed By: #### G IPANEL #### [facility] [address] [place] [address] Dr. Steven Simon EPEC Not detected Normal NOT DETECTED The [facility] Comment on above: Performed By: #### G IPANEL #### [facility] [address] [place] [address] Dr. Steven Simon ETEC Not detected Normal NOT DETECTED The [facility] Comment on above: Performed By: #### G IPANEL #### [facility] [address] [place] [address] Dr. Steven Eason. Lamblia Not detected Normal NOT DETECTED The [facility] Comment on above: Performed By: #### G IPANEL #### [facility] [address] [place] [address] Dr. Steven MOSS CONTROLS PASSED Normal [facility] Comment on above: Performed By: #### G IPANEL #### [facility] [address] [address] [address] Steven [facility] HEADER GI PANEL BACTERIA Normal T [facility] Comment on above: Performed By: #### G IPANEL #### [facility] [address] [address] [address] Steven CARDENAS ECOLI GI PANEL DIARRHEAGENIC E.COLI / SHIGELLA Normal [facility] Comment on above: Performed By: #### G IPANEL #### [facility] [address] [address] [address] Steven CARDENAS INFO SEE BELOW [facility] Comment on above: Result Comment: EAEC - Enteroaggregative E. Coli EPEC- Enteropathogenic E. Coli ETEC- Enterotoxigenic E. Coli lt/st STEC- Shigella-like toxin-producing E. Coli stx1/stx2 EIEC- Shigella/Enteroinvasive E. Coli Performed By: #### G IPANEL #### [facility] [address] [address] [address] Steven CARDENAS PARASITES GI PANEL PARASITES Normal [facility] Comment on above: Performed By: #### G IPANEL #### [facility] [address] [address] [address] Steven CARDNEAS VIRUS GI PANEL VIRUSES Normal [facility] Comment on above: Performed By: #### G IPANEL #### [facility] [address] [place] [address] Dr. Steven Simon Norovirus GI/GII Not detected Normal NOT DETECTED [facility] Comment on above: Performed By: #### G IPANEL #### [facility] [address] [address] [address] Steven Simon P. Shigelloides Not detected Normal NOT DETECTED [facility] Comment on above: Performed By: #### G IPANEL #### [facility] [address] [address] [address] Steven Simon Rotavirus A Detected Abnormal NOT DETECTED The [facility] Comment on above: Performed By: #### G IPANEL #### [facility] [address] [place] [address] Dr. Steven Simon Salmonella Not detected Normal NOT DETECTED The [facility] Comment on above: Performed By: #### G IPANEL #### [facility] [address] [place] [address] Dr. Steven Simon Sapovirus Not detected Normal NOT DETECTED The [facility] Comment on above: Performed By: #### G IPANEL #### [facility] [address] [place] [address] Dr. Steven Simon STEC Not detected Normal NOT DETECTED The [facility] Comment on above: Performed By: #### G IPANEL #### [facility] [address] [place] [address] Dr. Steven Simon Vibrio Not detected Normal NOT DETECTED The [facility] Comment on above: Performed By: #### G IPANEL #### [facility] [address] [place] [address] Dr. Steven Simon Vibrio Cholera Not detected Normal NOT DETECTED [facility] Comment on above: Performed By: #### G IPANEL #### [facility] [address] [place] [address] Dr. Steven Simon Y. Enterocolitica Not detected Normal NOT DETECTED [facility] Comment on above: Performed By: #### G IPANEL #### [facility] [address] [place] [address] Dr. Steven Simon LACTATE/LACTIC ACIDon 2021 Lactate [Moles/Vol] 0.6 mmol/L Normal 0.4-1.9 [facility] Comment on above: Performed By: #### G IPANEL #### [facility] [address] [place] [address] Dr. Steven Simon PROF 14(COMP METB)on 022 Albumin [Mass/Vol] 3.3 g/dL Critically low 3.4-5.0 [facility] Comment on above: Performed By: #### E RUR #### [facility] [address] [place] [address] Dr. Steven Simon Albumin/Globulin [Mass ratio] 0.9 {ratio} Normal [facility] Comment on above: Performed By: #### E RUR #### [facility] [address] [place] [address] Dr. Steven Simon ALP [Catalytic activity/Vol] 63 U/L Normal 46-116 [facility] Comment on above: Performed By: #### E RUR #### [facility] [address] [place] [address] Dr. Steven Simon ALT [Catalytic activity/Vol] 26 U/L Normal 14-59 [facility] Comment on above: Performed By: #### E RUR #### [facility] [address] [place] [address] Dr. Steven Simon Anion gap [Moles/Vol] 12.2 mmol/L Normal [facility] Comment on above: Performed By: #### E RUR #### [facility] [address] [place] [address] Dr. Steven Simon AST [Catalytic activity/Vol] 18 U/L Normal 15-37 [facility] Comment on above: Performed By: #### E RUR #### [facility] [address] [place] [address] Dr. Steven Simon Bilirubin [Mass/Vol] 0.6 mg/dL Normal 0.2-1.0 [facility] Comment on above: Performed By: #### E RUR #### [facility] [address] [place] [address] Dr. Steven Simon Calcium [Mass/Vol] 7.6 mg/dL Critically low 8.5-10.1 [facility] Comment on above: Performed By: #### E RUR #### [facility] [address] [place] [address] Dr. Steven Simon Chloride [Moles/Vol] 102 mmol/L Normal 98-107 [facility] Comment on above: Performed By: #### E RUR #### [facility] [address] [place] [address] Dr. Steven Simon CO2 [Moles/Vol] 24.6 mmol/L Normal 21.0-32.0 [facility] Comment on above: Performed By: #### E RUR #### [facility] [address] [place] [address] Dr. Steven Simon Creatinine [Mass/Vol] 0.71 mg/dL Normal 0.55-1.02 [facility] Comment on above: Performed By: #### E RUR #### [facility] [address] [place] [address] Dr. Steven Simon EGFR-AF ARMENIAN >60 Normal >=60 [facility] Comment on above: Performed By: #### E RUR #### [facility] [address] [place] [address] Dr. Steven Simon EGFR-NON AF ARMENIAN >60 Normal >=60 [facility] Comment on above: Performed By: #### E RUR #### [facility] [address] [place] [address] Dr. Steven Simon Globulin (S) [Mass/Vol] 3.6 g/dL Normal [facility] Comment on above: Performed By: #### E RUR #### [facility] [address] [place] [address] Dr. Steven Simon Glucose [Mass/Vol] 146 mg/dL Critically high 74-106 T [facility] Comment on above: Performed By: #### E RUR #### [facility] [address] [place] [address] Dr. Steven Simon Potassium [Moles/Vol] 3.8 mmol/L Normal 3.5-5.1 [facility] Comment on above: Performed By: #### E RUR #### [facility] [address] [place] [address] Dr. Steven Simon Protein [Mass/Vol] 6.9 g/dL Normal 6.4-8.2 [facility] Comment on above: Performed By: #### E RUR #### [facility] [address] [place] [address] Dr. Steven Simon Sodium [Moles/Vol] 135 mmol/L Critically low 136-145 Th e [facility] Comment on above: Performed By: #### E RUR #### [facility] [address] [address] [address] Steven Simon Urea nitrogen [Mass/Vol] 7.0 mg/dL Normal 7.0-18.0 [facility] Comment on above: Performed By: #### E RUR #### [facility] [id number] Steven Simon Urea nitrogen/Creatinine [Mass ratio] 9.9 mg/mg Normal [facility] Comment on above: Performed By: #### E RUR #### [facility] [address] [place] [address] Dr. Steven Simon XR CHEST 2 Von 12-29-2021 XR CHEST 2 V EXAMINATION: XR CHES T 2 V HISTORY: Cough COMPARISON: XR chest 08/14/2021 FINDINGS: LUNGS: No significant pulmonary parenchymal abnormalities. VASCULATURE: No increased pulmonary vasculature. PLEURA: No pneumothorax, effusion, or pleural thickening. CARDIAC: No cardiomegaly or cardiac silhouette abnormality. MEDIASTINUM: No visible mass or adenopathy. BONES: No fracture or visible bone lesion. OTHER: Negative. IMPRESSION: 1. No acute cardiopulmonary process. Stable chest. Electronically authenticated by: FERCHO NAVARRO Date: 2021-12-29 08:02 Normal [facility]on SARS-CoV-2 (COVID-19) RNA TATIANA+probe Ql (Unsp spec) Not detected Normal NOT DETECTED [facility] Comment on above: Result Comment: This test is not yet approved or cleared by the [place] FDA. When there are no FDA-approved or cleared tests available, and other criteria are met, FDA can make tests available under an emergency access mechanism called an Emergency Use Authorization (EUA). The EUA for this test is supported by the Safety And Occupational Health Manager of Health and Human Service's (HHS's) declaration that circumstances exist to justify the emergency use of in vitro diagnostics for the detection and/or diagnosis of the virus that causes COVID-19. This EUA will remain in effect (meaning this test can be used) for the duration of the COVID-19 declaration justifying emergency of IVDs, unless it is terminated or revoked by FDA (after which the test may no longer be used). When diagnostic testing is negative, the possibility of a false negative should be considered in the context of a patient's recent exposures and the presence of clinical signs and symptoms consistent with SARS-CoV-2. Performed By: #### C VDTB #### [facility] [address] [place], [place] [address] Dr. Steven Simon Microalbumin (with Creat)on 11-15-2021 mALB <1.2 Low [facility] Comment on above: Result Comment: Unab le to calculate mALB/Crea ratio, mALB is <1.2 mg/dL mALB reference range not established. Performed By: #### m ALBC #### [facility] [address], [place] [id number] UCREA 86 mg/dL Normal 28-217 [facility] Comment on above: Performed By: #### m ALBC #### [facility] [address], [place] [id number] Comprehensive Metabolic Pane martha 11-08-2021 Albumin [Mass/Vol] 4.3 g/dL Normal 3.6-5.1 [facility] Comment on above: Performed By: #### C MP, LIPD, TSH reflex FT4 #### [facility] [address], [place] [id number] Albumin/Globulin [Mass ratio] 2.0 {ratio} Normal 1.0-2.5 [facility] Comment on above: Performed By: #### C MP, LIPD, TSH reflex FT4 #### [facility] [address], [place] [id number] ALP [Catalytic activity/Vol] 64 U/L Normal 35-119 [facility] Comment on above: Performed By: #### C MP, LIPD, TSH reflex FT4 #### [facility] [address], [place] [id number] ALT [Catalytic activity/Vol] 30 U/L Normal 6-33 [facility] Comment on above: Result Comment: 08/24 Female reference range changed. Performed By: #### C MP, LIPD, TSH reflex FT4 #### [facility] [address], [place] [id number] Anion gap [Moles/Vol] 16 mmol/L Normal 12-20 [facility] Comment on above: Result Comment: Efffranklyn ctive 09/29/2019 reference range changed. Performed By: #### C MP, LIPD, TSH reflex FT4 #### [facility] [address], [place] [id number] AST [Catalytic activity/Vol] 30 U/L Normal 9-34 [facility] Comment on above: Performed By: #### C MP, LIPD, TSH reflex FT4 #### [facility] [address], [place] [id number] Bilirubin [Mass/Vol] 0.51 mg/dL Normal 0.30-1.20 [facility] Comment on above: Performed By: #### C MP, LIPD, TSH reflex FT4 #### [facility] [address], [place] [id number] BUN/CREA 14 Ratio Normal 6-22 [facility] Comment on above: Performed By: #### C MP, LIPD, TSH reflex FT4 #### [facility] [address], [place] [id number] Calcium [Mass/Vol] 9.5 mg/dL Normal 8.6-10.2 [facility] Comment on above: Performed By: #### C MP, LIPD, TSH reflex FT4 #### [facility] [address], [place] [id number] Chloride [Moles/Vol] 102 mmol/L Normal 98-107 [facility] Comment on above: Performed By: #### C MP, LIPD, TSH reflex FT4 #### [facility] [address], [place] [id number] CO2 [Moles/Vol] 25 mmol/L Normal 20-31 [facility] Comment on above: Performed By: #### C MP, LIPD, TSH reflex FT4 #### [facility] [address], [place] [id number] Creatinine [Mass/Vol] 0.8 mg/dL Normal 0.6-1.4 [facility] Comment on above: Performed By: #### C MP, LIPD, TSH reflex FT4 #### [facility] [address], [place] [id number] eGFRAA 98 mL/min/1.73m2 Normal >60 [facility] Comment on above: Performed By: #### C MP, LIPD, TSH reflex FT4 #### [facility] [address], [place] [id number] eGFRNAA 81 mL/min/1.73m2 Normal >60 [facility] Comment on above: Performed By: #### C MP, LIPD, TSH reflex FT4 #### [facility] [address], [place] [id number] Globulin (S) [Mass/Vol] 2.2 g/dL Normal 1.9-3.7 [facility] Comment on above: Performed By: #### C MP, LIPD, TSH reflex FT4 #### [facility] [address], [place] [id number] Glucose [Mass/Vol] 128 mg/dL High 65-99 [facility] Comment on above: Result Comment: For FASTING Glucose --- ADA reference ranges: Normal 65-99 mg/dl Prediabetes 100-125 Diabetes >/= 126 Performed By: #### C MP, LIPD, TSH reflex FT4 #### [facility] [address], [place] [id number] Potassium [Moles/Vol] 4.7 mmol/L Normal 3.5-5.5 [facility] Comment on above: Performed By: #### C MP, LIPD, TSH reflex FT4 #### [facility] [address], [place] [id number] Protein [Mass/Vol] 6.5 g/dL Normal 6.1-8.1 [employer] [place] [facility] Comment on above: Performed By: #### C MP, LIPD, TSH reflex FT4 #### [facility] [address], [place] [id number] Sodium [Moles/Vol] 139 mmol/L Normal 135-146 [facility] Comment on above: Performed By: #### C MP, LIPD, TSH reflex FT4 #### [facility] [address], [place] [id number] Urea nitrogen [Mass/Vol] 10 mg/dL Normal 7-25 [facility] Comment on above: Performed By: #### C MP, LIPD, TSH reflex FT4 #### [facility] [address], [place] [id number] Hemoglobin A1Con 11-08-2021 EAG 142.72 Normal [facility] Comment on above: Performed By: #### A 1C #### [facility] [address], [place] [id number] HbA1c (Bld) [Mass fraction] 6.6 % High 4.0-6.0 [facility] Comment on above: Performed By: #### A 1C #### [facility] [address], [place] [id number] Lipid Panelon 11-08-2021 Cholesterol [Mass/Vol] 245 mg/dL High 125-200 [facility] Comment on above: Result Comment: Low risk < 200mg/dL Borderline risk 201-239 mg/dl High risk > or equal to 240 Performed By: #### C MP, LIPD, TSH reflex FT4 #### [facility] [address], [place] [id number] Cholesterol in HDL [Mass/Vol] 42 mg/dL Normal >40 [facility] Comment on above: Result Comment: High Cardiovascular Risk HDL <40 mg/dL Low Cardiovascular Risk HDL > or equal to 60 mg/dl Performed By: #### C MP, LIPD, TSH reflex FT4 #### [facility] [address], [place] [id number] Cholesterol in LDL [Mass/Vol] 168 mg/dL Normal [facility] Comment on above: Result Comment: LDL ATP III CLASSIFICATION LDL less than 100 mg/dl Optimal LDL 100-129 mg/dl Near or above optimal LDL 130-159 Borderline high LDL 160-189 High LDL greater than 189 mg/dl Very High Performed By: #### C MP, LIPD, TSH reflex FT4 #### [facility] [address], [place] [id number] Cholesterol in VLDL [Mass/Vol] 35 mg/dL Normal [facility] Dr[facility] Manager Comment on above: Performed By: #### C MP, LIPD, TSH reflex FT4 #### [facility] [address], [place] [id number] Cholesterol.total/Cho lesterol in HDL [Mass ratio] 6 {ratio} Normal [facility] Comment on above: Performed By: #### C MP, LIPD, TSH reflex FT4 #### [facility] [address], [place] [id number] Triglyceride [Mass/Vol] 177 mg/dL High 30-150 [facility] Comment on above: Result Comment: TRIG ATPIII CLASSIFICATIONS TRIG less than 150 mg/dl Normal TRIG 150-199 mg/dl Borderline High TRIG 200-500 mg/dl High TRIG greather than 500 mg/dl Very High Performed By: #### C MP, LIPD, TSH reflex FT4 #### [facility] [address], [place] [id number] TSH w/ Reflex to Free T4on 0 - TSH 0.949 uIU/mL Normal 0.400-4.500 [facility] Drilling Manager Comment on above: Performed By: #### C MP, LIPD, TSH reflex FT4 #### [facility] [address], [place] [id number] HEPATITIS PANEL, ACUTEon HBsAg Screen Negative Normal Negative [facility] Comment on above: Performed By: #### H EPACUT #### [facility] [address] [address] [address] Steven Simon Hep A Ab, IgM Negative Normal Negative [facility] Comment on above: Performed By: #### H EPACUT #### [facility] [address] [address] [address] Steven Simon Hep B Core Ab, IgM Negative Normal Negative [facility] Comment on above: Performed By: #### H EPACUT #### [facility] [address] [address] [address] Steven Simon Hep C Virus Ab 0.1 s/co ratio Normal 0.0-0.9 [facility] Comment on above: Result Comment: Nega tive: < 0.8 Indeterminate: 0.8 - 0.9 Positive: > 0.9 . The CDC recommends that a positive HCV antibody result be followed up with a HCV Nucleic Acid Amplification test (279214). Effective December 05, 2021 Hepatitis Panel (4) will be made non-orderable. [facility] offers order code [id number] Acute Hepatitis. Performed By: #### H EPACUT #### [facility] [address] [place] [address] Dr. Steven Simon CBC AUTO DIFFon 09-26-2021 BASO # 0.1 103/ul Normal 0.0-0.1 [facility] Comment on above: Performed By: #### G IPANEL #### [facility] [address] [place] [address] Dr. Steven Simon Basophils/100 WBC (Bld) 1.0 % Normal 0.2-2.0 [facility] Comment on above: Performed By: #### G IPANEL #### [facility] [address] [place] [address] Dr. Steven Simon EO # 0.1 103/ul Normal 0.0-0.7 [facility] Comment on above: Performed By: #### G IPANEL #### [facility] [address] [place] [address] Dr. Steven Simon Eosinophils/100 WBC (Bld) 1.1 % Normal 0.9-7.0 [facility] Comment on above: Performed By: #### G IPANEL #### [facility] [address] [place] [address] Dr. Steven Simon Erythrocyte distribution width (RBC) [Ratio] 13.2 % Normal 11.0-15.0 [facility] Comment on above: Performed By: #### G IPANEL #### [facility] [address] [place] [address] Dr. Steven Simon Hematocrit (Bld) [Volume fraction] 44.8 % Normal 36.0-48.0 [facility] Comment on above: Performed By: #### G IPANEL #### [facility] [address] [address] [address] Steven Simon Hemoglobin (Bld) [Mass/Vol] 14.5 g/dL Normal 12.0-16.0 [facility] Comment on above: Performed By: #### G IPANEL #### [facility] [address] [address] [address] Steven Simon IG # 0.02 10e3/ul Normal 0.00-0.03 [facility] Comment on above: Performed By: #### G IPANEL #### [facility] [address] [address] [address] Steven Simon IG % 0.2 % Normal 0.0-0.5 [facility] Comment on above: Performed By: #### G IPANEL #### [facility] [address] [place] [address] Dr. Steven Simon LYMPH # 3.6 103/ul Normal 1.2-3.8 [facility] Comment on above: Performed By: #### G IPANEL #### [facility] [address] [place] [address] Dr. Steven Simon Lymphocytes/100 WBC (Bld) 43.3 % Normal 20.5-60.0 [facility] Comment on above: Performed By: #### G IPANEL #### [facility] [address] [place] [address] Dr. Steven Simon MANUAL DIFF REQ NO Normal [facility] Comment on above: Performed By: #### G IPANEL #### [facility] [address] [address] [address] Steven Simon MCH (RBC) [Entitic mass] 28.6 pg Normal 26.7-34.0 [facility] Comment on above: Performed By: #### G IPANEL #### [facility] [address] [place] [address] Dr. Steven Simon MCHC (RBC) [Mass/Vol] 32.4 g/dL Normal 29.9-35.2 [facility] Comment on above: Performed By: #### G IPANEL #### [facility] [address] [address] [address] Steven Simon MCV (RBC) [Entitic vol] 88.4 fL Normal 81.0-99.0 [facility] Comment on above: Performed By: #### G IPANEL #### [facility] [address] [place] [address] Dr. Steven Simon MONO # 0.6 103/ul Normal 0.3-0.8 [facility] Comment on above: Performed By: #### G IPANEL #### [facility] [address] [place] [address] Dr. Steven Simon Monocytes/100 WBC (Bld) 7.5 % Normal 1.7-12.0 [facility] Comment on above: Performed By: #### G IPANEL #### [facility] [address] [place] [address] Dr. Steven Simon NEUT # 3.9 103/ul Normal 1.4-6.5 [facility] Comment on above: Performed By: #### G IPANEL #### [facility] [address] [place] [address] Dr. Steven Simon Neutrophils/100 WBC (Bld) 46.9 % Normal 43.0-75.0 [facility] Comment on above: Performed By: #### G IPANEL #### [facility] [address] [place] [address] Dr. Steven Simon Platelet mean volume (Bld) [Entitic vol] 9.8 fL Normal 9.5-13.5 [facility] Comment on above: Performed By: #### G IPANEL #### [facility] [address] [place] [address] Dr. Steven Simon PLT 282 103/ul Normal 150-450 [facility] Comment on above: Performed By: #### G IPANEL #### [facility] [address] [place] [address] Dr. Steven Simon RBC 5.07 106/ul Normal 4.20-5.40 [facility] Comment on above: Performed By: #### G IPANEL #### [facility] [address] [place] [address] Dr. Steven Simon WBC 8.4 103/ul Normal 4.0-11.0 [facility] Comment on above: Performed By: #### G IPANEL #### [facility] [address] [place] [address] Dr. Steven Simon ELECTROLYTESon 09-26-2021 Anion gap [Moles/Vol] 14.7 mmol/L Normal [facility] Comment on above: Performed By: #### E LEC, LIVER #### [facility] [address] [place] [address] Dr. Steven Simon Chloride [Moles/Vol] 99 mmol/L Normal 98-107 [facility] Comment on above: Performed By: #### E LEC, LIVER #### [facility] [address] [place] [address] Dr. Steven Simon CO2 [Moles/Vol] 25.2 mmol/L Normal 22.0-30.0 [facility] Comment on above: Performed By: #### E LEC, LIVER #### [facility] [address] [place] [address] Dr. Steven Simon Potassium [Moles/Vol] 3.9 mmol/L Normal 3.4-5.0 [facility] Comment on above: Performed By: #### E LEC, LIVER #### [facility] [address] [place] [address] Dr. Steven Simon Sodium [Moles/Vol] 135 mmol/L Critically low 137-145 [facility] Comment on above: Performed By: #### E LEC, LIVER #### [facility] [address] [place] [address] Dr. Steven Simon LIVER PROFILEon 09-26-2021 Albumin [Mass/Vol] 3.7 g/dL Normal 3.5-5.0 [facility] Comment on above: Performed By: #### E LEC, LIVER #### [facility] [address] [place] [address] Dr. Steven Simon Albumin/Globulin [Mass ratio] 1.0 {ratio} Normal [facility] Comment on above: Performed By: #### E LEC, LIVER #### [facility] [address] [address] [address] Steven Simon ALP [Catalytic activity/Vol] 56 U/L Normal 38-126 [facility] Comment on above: Performed By: #### E LEC, LIVER #### [facility] [address] [address] [address] Steven Simon ALT [Catalytic activity/Vol] 41 U/L Normal 9-52 [facility] Comment on above: Performed By: #### E LEC, LIVER #### [facility] [address] [address] [address] Steven Simon AST [Catalytic activity/Vol] 27 U/L Normal 14-36 [facility] Comment on above: Performed By: #### E LEC, LIVER #### [facility] [address] [address] [address] Steven Simon BILI, CONJUGATED 0.1 mg/dL Normal 0.0-0.3 [facility] Comment on above: Performed By: #### E LEC, LIVER #### [facility] [address] [address] [address] Steven Simon Bilirubin [Mass/Vol] 0.5 mg/dL Normal 0.2-1.3 [facility] Comment on above: Performed By: #### E LEC, LIVER #### [facility] [address] [address] [address] Steven Simon Globulin (S) [Mass/Vol] 3.6 g/dL Normal [facility] Comment on above: Performed By: #### E LEC, LIVER #### [facility] [address] [address] [address] Steven Simon Protein [Mass/Vol] 7.3 g/dL Normal 6.1-8.2 [facility] Comment on above: Performed By: #### E LEC, LIVER #### [facility] [address] [id number] [address] Steven Simon MG MAMM SCREEN 3D PATRICIA CADon 09-14-2021 MG MAMM SCREEN 3D PATRICIA CAD Patient: KEITH BAUM Exam Date: 09/14/2021 : 1970 Gender:F Ordering : DR ALMA ROSA SMITH M.D. Admission #: [id number] Family : DR VARELA MATEO . Order #: [id number] CLICK HERE TO VIEW EXAM RADIOLOGY REPORT PROCEDURE: MAMMOGRAM SCREENING 3D BILATERAL CAD COMPARISON: MG MAMM SCREEN PATRICIA W CAD, 04/08/2019. INDICATIONS: Screening mammography Calculator Name NCI Breast Cancer Risk Assessment Tool 5 Year Breast Cancer Risk 0.90% Lifetime Breast Cancer Risk 7.00% Personal Breast Cancer No Personal Ovarian Cancer No Treatments None Family Cancers None LOCATION: [facility] BREAST COMPOSITION: Scattered areas fibroglandular density. FINDINGS: DIAGNOSTIC CATEGORY 2--BENIGN FINDING: RIGHT BREAST: No significant suspicious finding. Scattered benign-appearing calcifications are present. No significant change has occurred. LEFT BREAST: No significant suspicious finding. Scattered benign-appearing calcifications are present. No significant change has occurred. RECOMMENDATIONS: ROUTINE MAMMOGRAM AND CLINICAL EVALUATION IN 12 MONTHS. PLEASE NOTE: A NORMAL MAMMOGRAM DOES NOT EXCLUDE THE POSSIBILITY OF BREAST CANCER. A CLINICALLY SUSPICIOUS PALPABLE LUMP SHOULD BE BIOPSIED. Dictated by: Fercho Navarro M.D. on 09/14/2021 at 14:21 Approved by: Fercho Navarro M.D. on 09/14/2021 at 14:24 Normal [facility]on 07-26 SARS-CoV-2 (COVID-19) RNA TAITANA+probe Ql (Unsp spec) Not detected Normal NOT DETECTED [facility] Comment on above: Result Comment: When diagnostic testing is negative, the possibility of a false negative should be considered in the context of a patient's recent exposures and the presence of clinical signs and symptoms consistent with SARS-CoV-2. This test is not yet approved or cleared by the [place] FDA. When there are no FDA-approved or cleared tests available, and other criteria are met, FDA can make tests available under an emergency access mechanism called an Emergency Use Authorization (EUA). The EUA for this test is supported by the [place] of Health and Human Service's declaration that circumstances exist to justify the emergency use of in vitro diagnostics for the detection and/or diagnosis of the virus that causes COVID-19. This EUA will remain in effect for the duration of the COVID-19 declaration justifying emergency of IVDs, unless it is terminated or revoked by the FDA (after which the test may no longer be used). Performed By: #### C VDTB #### [facility] [address] [place] [address] Dr. Steven BENTLEY URINE PROFILEon 1 Bilirubin Ql (U) Negative Normal NEGATIVE [facility] Comment on above: Performed By: #### E RUR #### [facility] [address] [place] [address] Dr. Steven Simon Clarity (U) CLEAR Normal CLEAR [facility] Comment on above: Performed By: #### E RUR #### [facility] [address] [place] [address] Dr. Steven Simon Color (U) YELLOW Normal YELLOW [facility] Comment on above: Performed By: #### E RUR #### [facility] [address] [place] [address] Dr. Steven MARINELLI A micrscopic examination will be performed if indicated. Normal The [facility] Comment on above: Performed By: #### E RUR #### [facility] [address] [place] [address] Dr. Steven Simon Glucose Ql (U) 500 mg/dl Abnormal NEGATIVE The [facility] Comment on above: Performed By: #### E RUR #### [facility] [address] [place] [address] Dr. Steven Simon Hemoglobin Ql (U) Negative Normal NEGATIVE The [facility] Comment on above: Performed By: #### E RUR #### [facility] [address] [place] [address] Dr. Steven Simon Ketones Ql (U) Negative Normal NEGATIVE [facility] Comment on above: Performed By: #### E RUR #### [facility] [address] [place] [address] Dr. Steven Simon LEUKOCYTES Negative Normal NEGATIVE [facility] Comment on above: Performed By: #### E RUR #### [facility] [address] [place] [address] Dr. Steven Simon Nitrite Ql (U) Negative Normal NEGATIVE [facility] Comment on above: Performed By: #### E RUR #### [facility] [address] [address] [address] Steven Simon pH (U) 7.5 [pH] Normal 5-9 [facility] Comment on above: Performed By: #### E RUR #### [facility] [address] [address] [address] Steven Simon SPEC GRAVITY 1.015 Normal 1.005-<=1.025 [facility] Comment on above: Performed By: #### E RUR #### [facility] [address] [address] [address] Steven Simon UA PROTEIN Negative Normal NEGATIVE/ TRACE [facility] Comment on above: Performed By: #### E RUR #### [facility] [address] [place] [address] Dr. Steven Simon UR MICRO IND NOT INDICATED Normal [facility] Comment on above: Performed By: #### E RUR #### [facility] [address] [address] [address] Steven Simon Urobilinogen Qn (U) 0.2 {Claritza'U}/dL Normal 0.2 - 1. 0 [facility] Comment on above: Performed By: #### E RUR #### [facility] [address] [place] [address] Dr. Steven Simon Encounters Encounter Date Encounter Type Care Provider Facility Start: 02-05-2024 ambulatory Isak Young acility:[facility] Start: 01-14-2024 End: 01-14-2024 ambulatory FERNANDO LOPEZ Not Available Start: 12-26-2023 End: 12-26-2023 ambulatory NICHOLE GALINDO Not Available Start: 12-25-2023 End: 12-25-2023 ambulatory JULIA CHEN Not Available Start: 12-21-2023 End: 12-21-2023 ambulatory JULIA Caldwell HEMMER Not Available Start: 10-30-2023 End: 10-30-2023 ambulatory JULIA Caldwell HEMMER Not Available Start: 10-29-2023 Chart abstracting Julia Lerner er PA Work Phone: [facility] Start: 09-03-2023 End: 09-03-2023 ambulatory JULIA CHEN Not Available Start: 08-22-2023 End: 08-22-2023 ambulatory JULIA CHEN Not Available Start: 05-09-2023 End: 05-10-2023 ambulatory Dax Block Facility:[facility] Start: 05-09-2023 End: 05-09-2023 Patient encounter procedure Dax Block [facility] Start: 08-11-2022 End: 08-12-[address] ALMA ROSA SMITH Facility:[facility] Start: 07-22-2022 End: 07-23-[address] HUMPHREY LORA Facility:[facility] Start: 04-20-2022 End: 04-21-2022 ambulatory Humphrey Marvin Facility:[facility] Start: 04-13-2022 End: 04-13-[address] HUMPHREY LORA Facility:[facility] Start: 02-10-2022 End: 02-10-[address] SALLIE WILLS Facility:[facility] Start: 12-29-2021 End: 12-30-[address] Fercho Navarro Facility:[facility] Start: 12-28-2021 End: 12-28-2021 ambulatory RIC BIANCHI Facility:[facility] Start: 09-26-2021 End: 09-27-[address] NICHOLE GALINDO Facility:[facility] Start: 09-14-2021 End: 09-15-[address] ALMA ROSA SMITH Facility:[facility] Start: 08-20-2021 End: 08-20-2021 ambulatory RAMONE OKEEFE Facility:[facility] Procedures Date Procedure Procedure Detail Performing Clinician Start: 07-26-2023 Mammography Julia Lerner er PA Work Phone: Start: 09-24-2011 History of hernia repair Dax Block Comment on above: ventral hernia x 4 Start: 09-24-2007 Cholecystectomy Dax Block Start: 09-24-2007 Open biopsy of liver Mi ryan Block Start: 09-24-2007 Open biopsy of pancreas Dax Block Start: 09-24-1993 History of nasal sin us surgery Dax Block Start: 09-24-1990 section Serjio Block Excision of lumbar intervertebral disc Dax Block Plan of Treatment Date Care Activity Detail Author Start: 05-11-2026 Screening for malign ant neoplasm of colon [facility] Start: 11-22-2025 Screening for malign ant neoplasm of cervix [facility] Start: 07-26-2024 Screening for malign ant neoplasm of breast Mammogram [facility] Start: 04-16-2024 Medicare Annual Well ness (AWV) Medicare Annual Wellness (AWV) [facility] Start: 03-23-2024 Influenza vaccination Influenza Vacc ine (#1) [facility] Comment on above: Postponed from 05/25 (Patient Refused) Start: 10-31-2023 Hemoglobin A1c measurement Diabetes: Hemoglobin A1C [facility] Start: 10-30-2023 End: 10-30-2023 Patient encounter procedure 10/30/2023 10:00 AM EST Office Visit [facility] [address] [facility] [address] [place] [id number] Julia Chen PA [address] [facility] [address] [place] [address] [facility] Start: 1989 Screening for malign ant neoplasm of cervix Pap Smear [facility] Start: 1978 Glaucoma screening Diabetes: R etinopathy Screening [facility] Start: 1968 Screening for malign ant neoplasm of colon [facility] Immunizations Immunization Date Immunization Notes Care Provider Fa cility 10-07-2019 pneumococcal conjuga te vaccine, 13 valent Julia FERRARO Work Phone: [facility] 09-23-2019 zoster vaccine recombinant K eve FERRARO Work Phone: [facility] 03-09-2010 pneumococcal polysaccharide vaccine, 23 valent Julia FERRARO Work Phone: [facility] Payers Date Payer Category Payer Self-pay 2020 [place] [facility] [place] [id number] 2020-Present [phone] [address] [place] [address] Medicaid [id number] 2009 Medicare MEDICARE MEDICAR E PART B [id number] 2009-[place] [address] Medicare [id number] 2009 Medicare [id number] 1968 Unknown [id number] [id number] 1968 Unknown [id number] 2.16.840.1.820576.3.579.2.593 1968 Unknown [id number] 2.16.840.1.052156.3.579.2.593 1968 Unknown [id number] 2.16.840.1.208309.3.579.2.593 1968 Unknown [id number] 2.16.840.1.564388.3.579.2.593 1968 Unknown [id number] 2.16.840.1.202382.3.579.2.593 1968 Unknown [id number] 2.16.840.1.624219.3.579.2.593 1968 Unknown [id number] 2.16.840.1.585047.3.579.2.593 1968 Unknown [id number] 2.16.840.1.160924.3.579.2.593 1968 Unknown [id number] 2.16.840.1.160118.3.579.2.593 1968 Unknown [id number] 2.16.840.1.437169.3.579.2.593 1968 Unknown [id number] 2.16.840.1.109318.3.579.2.727 1968 Unknown [id number] 2.16.840.1.261296.3.579.2.1259 1968 Unknown [id number] 2.16.840.1.177763.3.579.2.9 1968 Unknown [id number] 2.16.840.1.781663.3.579.2.1259 1968 Unknown [id number] 2.16.840.1.422227.3.579.2.1258 1968 Unknown [id number] 2.16.840.1.342471.3.579.2.9 1968 Unknown [id number] 2.16.840.1.606649.3.579.2.1258 1968 Unknown [id number] 2.16.840.1.683581.3.579.2.1259 1961 Medicaid [id number] 1961 Medicare [id number] Unknown [id number] 2.16.840.1.587183.3.579.2.531 Social History Date Type Detail Facility Start: 03-16-2020 Tobacco smoking status Heavy t obacco smoker (finding) [facility] Start: 04-23-2023 End: 09-03-2023 Sex Assigned At Female [facility] Start: 04-18-2023 Tobacco smoking stat us WYIS Smokes tobacco daily [facility] History of tobacco use Cigarette Smoker [facility] Start: 04-18-2023 Tobacco use and exposure Smokeless tobacco non-user [facility] Start: 09-03-2023 Alcohol intake Ex-drinker (finding) [facility] Start: 04-23-2023 End: 09-03-2023 History of Social function [facility] Start: 04-15-2023 Tobacco Comment 5 or less cigs/day [facility] Start: 1970 Sex Assigned At Not on file [facility] Medical Equipment Procedure Code Equipment Code Equipment Original Text Equi pment Identifier Dates 1 each by Other route 1 (one) time each day. [id number] Evaluation + Plan note Note Date & Type Note Facility Evaluation + Plan note No data available for this section [facility] Hospital Discharge instructions Note Date & Type Note Facility Hospital Discharge instructions No data available for this section [facility] Progress note Note Date & Type Note Facility Progress note No data available for this section [facility] Summary Purpose Family History No Family History Records FoundNo Family History Records FoundNo Family History Records FoundNo Family History Records FoundNo Family History Records Found Advance Directives No Advanced Directives Records FoundNo Advanced Directives Records FoundNo Advanced Directives Records FoundNo Advanced Directives Records FoundNo Advanced Directives Records Found Additional Source Comments INFORMATION SOURCE (unrecogn ized section and content) DATE CREATED AUTHOR 11/16/2021 [facility] DATE CREATED AUTHOR AUTHOR'S ORGANIZ ATION 08/16/2022 [facility] DATE CREATED AUTHOR AUTHOR'S ORGANIZ ATION 06/06/2023 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 This clinical summary was aggregated from multiple sources. Caution should be exercised in using it in the provision of clinical care. This summary normalizes information from multiple sources, and as a consequence, information in this document may materially change the coding, format and clinical context of patient data. In addition, data may be omitted in some cases. CLINICAL DECISIONS SHOULD BE BASED ON THE PRIMARY CLINICAL RECORDS. [employer] [facility]. provides no warranty or guarantee of the accuracy or completeness of information in this document.
--- NOTE | 2024-03-24 09:19 | ED.ABDPAIN1 ---
HPI - Abdominal Pain General Chief Complaint: Abdominal Pain Stated Complaint: ABDOMINAL PAIN/DIZZINESS Time Seen by Provider: 03/24/24 09:01 Source: patient Mode of arrival: walk-in History of Present Illness HPI narrative: 53-year-old female presents for abdominal pain and diarrhea. It began 2 days ago and she has been having watery diarrhea. No recent antibiotic use or hospitalizations. 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 No fever or hematemesis and there is been no trauma. She has also had a cough productive of green phlegm for 3 to 4 days. Related Data Home Medications ?Medication ?Instructions ?Recorded ?Confirmed atenolol 50 mg tablet 25 mg PO DAILY 03/24/24 03/24/24 empagliflozin 10 mg tablet 10 mg PO DAILY 03/24/24 03/24/24 (Jardiance) escitalopram oxalate 20 mg tablet 20 mg PO .qhs 03/24/24 03/24/24 levothyroxine 75 mcg tablet 75 mcg PO QAM 03/24/24 03/24/24 omeprazole 20 mg capsule,delayed 20 mg PO QAM reflux 03/24/24 03/24/24 release oxycodone-acetaminophen 5 mg-325 1 tab PO Q12H PRN pain 03/24/24 03/24/24 mg tablet potassium chloride 20 mEq 20 meq PO DAILY 03/24/24 03/24/24 tablet,extended release(part/cryst) (Klor-Con M) Previous Rx's ?Medication ?Instructions ?Recorded ondansetron 4 mg disintegrating 4 mg PO Q6H PRN nausea and 03/24/24 tablet vomiting #20 tabs Allergies Allergy/AdvReac Type Severity Reaction Status Date / Time cephalexin [From Keflex] Allergy Intermediate Rash Verified 03/24/24 08:50 moxifloxacin [From Avelox] Allergy Intermediate Abdominal Verified 03/24/24 08:50 Pain nitrofurantoin Allergy Intermediate Rash Verified 03/24/24 08:50 [From Macrobid] azithromycin Allergy Rash Verified 03/24/24 08:50 Review of Systems ROS Narrative A ten point review of systems is negative except as noted above. Exam Narrative Exam Narrative: Nurses note and vital signs reviewed and patient is not hypoxic. General: The patient appears well and in no apparent distress. Patient is resting comfortably on cart. Skin: Warm, dry, no pallor noted. There is no rash noted. Head: Normocephalic, atraumatic Eye: Normal conjunctiva, no drainage Ears, Nose, Mouth, and Throat: oral mucosa is moist. Nares patent. Cardiovascular: Regular Rate and Rhythm Respiratory: Patient is in no distress, no accessory muscle use, lungs are clear to auscultation, no wheezing, rales or rhonchi Back: non-tender, no CVA tenderness bilaterally to percussion. GI: Bowel sounds are active and she has no masses palpable. She has very minimal tenderness diffusely. Musculoskeletal: The patient has no evidence of calf tenderness, no pitting edema, symmetrical pulses noted bilaterally Neurological: A&O, normal speech Psychiatric: Cooperative Constitutional Vital Signs, click to edit/add: Last Vital Signs Temp 98.3 F 03/24/24 08:57 Pulse 73 03/24/24 08:57 Resp 16 03/24/24 08:57 BP 107/66 03/24/24 08:57 Pulse Ox 96 03/24/24 08:57 O2 Del Method Room Air 03/24/24 08:57 Course Vital Signs Vital signs: Vital Signs Temperature 98.3 F 03/24/24 08:57 Pulse Rate 73 03/24/24 08:57 Respiratory Rate 16 03/24/24 08:57 Blood Pressure 107/66 03/24/24 08:57 Pulse Oximetry 96 03/24/24 08:57 Oxygen Delivery Method Room Air 03/24/24 08:57 Temperature 98.3 F 03/24/24 08:57 Pulse Rate 73 03/24/24 08:57 Respiratory Rate 16 03/24/24 08:57 Blood Pressure 107/66 03/24/24 08:57 Pulse Oximetry 96 03/24/24 08:57 Oxygen Delivery Method Room Air 03/24/24 08:57 MDM - Abdominal Pain MDM Narrative Medical decision making narrative: CAT scan findings are discussed with the patient. Blood work is essentially normal. She is able to be discharged home with symptomatic treatment. Treatment diagnosis and follow-up were discussed with the patient. Differential Diagnosis Differential diagnosis: Likely abdominal pain, constipation, diverticulitis, gastroenteritis, pancreatitis and small bowel obstruction Lab Data Attestation: I reviewed the patient's lab results. Labs: Lab Results 03/24/24 03/24/24 Range/Units 09:15 09:25 WBC 4.4 (4.0-11.0) 10^3/uL RBC 5.27 (4.20-5.40) 10^6/uL Hgb 15.6 (12.0-16.0) g/dL Hct 46.5 (36.0-48.0) % MCV 88.2 (81.0-99.0) fL MCH 29.6 (26.7-34.0) pg MCHC 33.5 (29.9-35.2) g/dL RDW 13.0 (11.0-15.0) % Plt Count 183 (150-450) 10^3/uL MPV 9.7 (9.5-13.5) fL Neut % (Auto) 58.1 (43.0-75.0) % Lymph % (Auto) 29.5 (20.5-60.0) % [place] % (Auto) 9.8 (1.7-12.0) % Eos % (Auto) 1.6 (0.9-7.0) % Baso % (Auto) 0.5 (0.2-2.0) % Neut # (Auto) 2.5 (1.4-6.5) 10^3/uL Lymph # (Auto) 1.3 (1.2-3.8) 10^3/uL Monroe # (Auto) 0.4 (0.3-0.8) 10^3/uL Eos # (Auto) 0.1 (0.0-0.7) 10^3/uL Baso # (Auto) 0.0 (0.0-0.1) 10^3/uL Abs Immat Gran (auto) 0.02 (0.00-0.03) 10^3/uL Imm/Tot Granulo (auto) 0.5 (0.0-0.5) % Sodium 134 L (136-145) mmol/L Potassium 3.7 (3.5-5.1) mmol/L Chloride 102 (98-107) mmol/L Carbon Dioxide 24.8 (21.0-32.0) mmol/L Anion Gap 10.9 BUN 13.0 (7.0-18.0) mg/dL Creatinine 0.82 (0.55-1.02) mg/dL Est GFR ( Amer) >60 (>=60) Est GFR (Non-Af Amer) >60 (>=60) BUN/Creatinine Ratio 15.9 Glucose 97 (74-106) mg/dL Calcium 7.4 L (8.5-10.1) mg/dL Total Bilirubin 1.0 (0.2-1.0) mg/dL Direct Bilirubin 0.3 H (0.0-0.2) mg/dL AST 21 (15-37) U/L ALT 21 (14-59) U/L Alkaline Phosphatase 72 (46-116) U/L Total Protein 6.2 L (6.4-8.2) g/dL Albumin 3.0 L (3.4-5.0) g/dL Globulin 3.2 g/dL Albumin/Globulin Ratio 0.9 Amylase 44 (25-115) U/L Lipase 28.0 (16.0-77.0) U/L Urine Color Yellow (YELLOW) Urine Clarity Clear (CLEAR) Urine pH 6.0 (5.0-9.0) Ur Specific [place] 1.010 (1.005-1.025) Urine Protein Negative (NEG/TRACE) mg/dL Urine Glucose (UA) >=1000 A (NEGATIVE) mg/dL Urine Ketones Negative (NEGATIVE) mg/dL Urine Occult Blood Negative (NEGATIVE) Urine Nitrite Negative (NEGATIVE) Urine Bilirubin Negative (NEGATIVE) Urine Urobilinogen 1.0 (0.2-1.0) EU/dL Ur Leukocyte Esterase Negative (NEGATIVE) Urine RBC None seen (0-2) #/HPF Urine WBC None seen (NONE SEEN) #/HPF Ur Squamous Epith Cells Few A (NONE/RARE) #/LPF Urine Crystals None seen (None Seen) #/HPF Urine Bacteria Trace A (NONE SEEN) #/HPF Urine Casts None seen (NONE SEEN) #/LPF Urine Mucus None seen (NONE SEEN) Ur Culture Indicated? No Imaging Data CT scan - abdomen: Radiologist's impression: ITS Impressions Abdomen/Pelvis CT 03/24/24 09:50 IMPRESSION: CT abdomen and CT pelvis studies demonstrate findings which can be correlated for mild gastroenteritis. Slight interval prominence of the cystic-appearing area in the pancreatic head as described. Finding may represent slight progression of nonspecific cysts, the possibility cannot be entirely excluded. Follow-up MRI abdomen study with and without intravenous gadolinium contrast may be considered for further evaluation. Additional findings as noted. Electronically authenticated by: DIOGENES SANDOVAL Date: 03/24/2024 10:42 Chest X-Ray 03/24/24 09:50 IMPRESSION: No acute process seen in the chest. Electronically authenticated by: DIOGENES SANDOVAL Date: 03/24/2024 10:19 Discharge Plan Discharge Stand Alone Forms: Portal Instructions Chief Complaint: Abdominal Pain Clinical Impression: Gastroenteritis Patient Disposition: Home, Self-Care Time of Disposition Decision: 12:00 Condition: Good Mode of Transportation: Private Vehicle Prescriptions / Home Meds: New ondansetron 4 mg tablet,disintegrating 4 mg PO Q6H PRN (Reason: nausea and vomiting) Qty: 20 0RF No Action atenolol 50 mg tablet 25 mg PO DAILY Jardiance 10 mg tablet 10 mg PO DAILY escitalopram oxalate 20 mg tablet 20 mg PO .qhs levothyroxine 75 mcg tablet 75 mcg PO QAM omeprazole 20 mg capsule,delayed release(DR/EC) 20 mg PO QAM Rx Instructions: before meal oxycodone-acetaminophen 5-325 mg tablet 1 tab PO Q12H PRN (Reason: pain) potassium chloride [Klor-Con M20] 20 mEq tablet,ER particles/crystals 20 meq PO DAILY Print Language: Uzbek Instructions: Gastroenteritis (ED) Referrals: ERIK SMITH [Primary Care Provider] - 1 week
[2024-03-24 09:47] LABS: Basophils Percent Auto 0.5 % (0.2-2.0); Eosinophils Absolute Auto 0.1 10^3/uL (0.0-0.7); Eosinophils Percent Auto 1.6 % (0.9-7.0); Hematocrit 46.5 % (36.0-48.0); Hemoglobin 15.6 g/dL (12.0-16.0); Immature Granulocytes Abs Auto 0.02 10^3/uL (0.00-0.03); Immature Granulocytes Pct Auto 0.5 % (0.0-0.5); Lymphocytes Absolute Auto 1.3 10^3/uL (1.2-3.8); Lymphocytes Percent Auto 29.5 % (20.5-60.0); Mean Corpuscular HGB Conc 33.5 g/dL (29.9-35.2); Mean Corpuscular Hemoglobin 29.6 pg (26.7-34.0); Mean Corpuscular Volume 88.2 fL (81.0-99.0); Mean Platelet Volume 9.7 fL (9.5-13.5); Monocytes Absolute Auto 0.4 10^3/uL (0.3-0.8); Monocytes Percent Auto 9.8 % (1.7-12.0); Neutrophils Absolute Auto 2.5 10^3/uL (1.4-6.5); Neutrophils Percent Auto 58.1 % (43.0-75.0); Platelet Count 183 10^3/uL (150-450); Red Blood Count 5.27 10^6/uL (4.20-5.40); White Blood Count 4.4 10^3/uL (4.0-11.0)
[2024-03-24 09:47] LABS: Bilirubin Urine NEGATIVE (NEGATIVE); Blood Urine NEGATIVE (NEGATIVE); Clarity Urine CLEAR (CLEAR); Color Urine YELLOW (YELLOW); Glucose Urine UA >=1000 mg/dL (NEGATIVE); Ketones Urine NEGATIVE (NEGATIVE); Leukocyte Esterase Urine NEGATIVE (NEGATIVE); Nitrite Urine NEGATIVE (NEGATIVE); Protein Urine NEGATIVE (NEG/TRACE)
--- NOTE | 2024-03-24 09:50 | XR_ITS ---
The [address] [address] Patient Name: KEITH WASHINGTON MRN: [id number] date: 1970 Sex: F Assigned Patient Location: ER Current Patient Location: ED.MAIN Accession/Order Number: [id number] Exam Date: 03/24/2024 09:32 Report Date: 03/24/2024 10:19 At the request of: JOSE ALEJANDRO TERRELL Procedure: XR chest 1V EXAM: XR chest 1V HISTORY: Cough COMPARISON: Chest study dated 09/04/2023 TECHNIQUE: AP view of the chest was obtained with portable technique at 0935 hours. FINDINGS: Heart and mediastinal contours are unremarkable in appearance. No acute infiltrate or consolidations are seen. No obvious pneumothorax. Mild degenerative changes about the acromioclavicular joints. XR/XR chest 1V IMPRESSION: No acute process seen in the chest. Electronically authenticated by: DIOGENES SANDOVAL Date: 03/24/2024 10:19
--- NOTE | 2024-03-24 09:50 | CT_ITS ---
The [address] [address] Patient Name: KEITH WASHINGTON MRN: [id number] date: 1970 Sex: F Assigned Patient Location: ER Current Patient Location: ER Accession/Order Number: [id number] Exam Date: 03/24/2024 09:32 Report Date: 03/24/2024 10:42 At the request of: JOSE ALEJANDRO TERRELL Procedure: CT abdomen pelvis w con EXAM: CT abdomen pelvis w con HISTORY: Upper abdominal pain, history of pancreatic mass left-sided abdominal pain, diarrhea COMPARISON: CT abdomen and CT pelvis studies dated 10/29/2017, MRI abdomen study dated 08/11/2022. TECHNIQUE: CT abdomen and CT pelvis studies were performed with the use of intravenous contrast. Multiple axial images were obtained. Reformatted coronal and sagittal images were obtained and reviewed. FINDINGS: Abdomen: Visualized lower lung wang appear grossly unremarkable. Views of the liver and spleen fail to demonstrate evidence of focal mass in either organ. Patient is status post cholecystectomy. Adrenal glands appear grossly unremarkable. Lobulated area of decreased attenuation in the pancreatic head appears slightly increased in size compared to the prior exams. The finding measures approximately 3.1 x 3.1 x 2.7 cm in longitudinal, transverse and AP dimensions. Finding may well represent cystic process as suggested previously, other possibilities difficult to exclude entirely. Slight enlargement. Follow-up MRI abdomen study with and without intravenous gadolinium contrast may be considered for further evaluation. Stomach appears grossly unremarkable with retained food debris and fluid. Retained fluid in the colon and small bowel loops, consider mild gastroenteritis. No obvious bowel obstruction. Atherosclerotic calcification within the midportion of the abdominal aorta. No evidence of aneurysm. No evidence of adenopathy in the retroperitoneum. No obvious renal mass or obstructive uropathy. Mild outpouching of the anterior abdominal wall with what may be postoperative changes similar to the prior exam. Tiny fat filled umbilical hernia without bowel content, similar to prior study. Pelvis: Bladder appears grossly unremarkable. Uterus appears grossly unremarkable. No obvious adnexal mass. Perirectal fat planes appear grossly intact. Bowel loops appear grossly unremarkable. Visualized vascular structures appear grossly intact. No evidence of adenopathy. The appendix is visualized and appears unremarkable. Mild degenerative changes in the visualized lower dorsal spine with [id number] degenerative changes in the lumbar spine. Mild degenerative change about the hip joints. CT/CT abdomen pelvis w con IMPRESSION: CT abdomen and CT pelvis studies demonstrate findings which can be correlated for mild gastroenteritis. Slight interval prominence of the cystic-appearing area in the pancreatic head as described. Finding may represent slight progression of nonspecific cysts, the possibility cannot be entirely excluded. Follow-up MRI abdomen study with and without intravenous gadolinium contrast may be considered for further evaluation. Additional findings as noted. Electronically authenticated by: DIOGENES SANDOVAL Date: 03/24/2024 10:42
[2024-03-24 09:57] LABS: Bacteria Urine TRACE #/HPF (NONE SEEN); Cast Seen? NONE SEEN #/LPF (NONE SEEN); Crystals Seen? None Seen #/HPF (None Seen); Mucus Urine NONE SEEN (NONE SEEN); RBC Urine NONE SEEN #/HPF (0-2); Squamous Epithelial Cell Urine FEW #/LPF (NONE/RARE); Urine Culture Indicated NO; WBC Urine NONE SEEN #/HPF (NONE SEEN)
[2024-03-24 10:14] LABS: Alanine Aminotransferase 21 U/L (14-59); Albumin Globulin Ratio 0.9; Alkaline Phosphatase 72 U/L (46-116); Amylase 44 U/L (25-115); Anion Gap 10.9; Aspartate Amino Transferase 21 U/L (15-37); BUN Creatinine Ratio 15.9; Bilirubin Direct 0.3 mg/dL (0.0-0.2); Calcium 7.4 mg/dL (8.5-10.1); Carbon Dioxide 24.8 mmol/L (21.0-32.0); Chloride 102 mmol/L (98-107); Estimated GFR (African America >60 (>=60); Estimated GFR (Non-African Ame >60 (>=60); Globulin 3.2 g/dL; Glucose 97 mg/dL (74-106); Potassium 3.7 mmol/L (3.5-5.1); Sodium 134 mmol/L (136-145); Total Protein 6.2 g/dL (6.4-8.2)
[2024-03-24] MEDS: lidocaine HCL 15 ML, MAG HYDROX/ALUMINUM HYD/SIMETH 30 ML, HYOSCYAMINE SULFATE 0.25 MG PO (11:58)
== END 2024-03-24 12:10 | disposition home or self-care (01) ==
PROVIDERS: Emergency Provider Emergency Medicine; PCP Family Medicine
DX: K52.9 Noninfective gastroenteritis and colitis, unspecified (principal)
CPT/HCPCS: 36415; 71045; 74177; 80048; 80076; 81001; 82150; 83690; 85025; 99285; Q9967

== ENCOUNTER 2024-05-09 13:06 | Outpatient (OUT) | payer MEDICARE, MEDICAID, SELFPAY ==
--- OUTSIDE RECORDS SUMMARY | 2024-05-09 13:14 | XMS_ITS | CCD ---
Author Organization [facility] CliniSyin Care Team Providers Care Composition Roofer Name Role Phone GUIDO, DR HUMPHREY Butler [...] Unavailable ALMA ROSA SMITH Primary Care Physician [phone] Dax Block Referring Unavailable Dax Block Attending Unavailable Dax Block Admitting Unavailable Alma Rosa Smith MD Primary Care Provider [phone] Alma Rosa Smith MD Unavailable JULIA CHEN Attending Unavailable HEMJULIA HARPER Attending Unavailable HEMLEROY, JULIA Caldwell Attending Unavailable NICHOLE GALINDO Attending Unavailable FERNANDO LOPEZ Attending Unavailable HEMMERJULIA Attending Unavailable FERNANDO LOPEZ Attending Unavailable HEMJULIA HARPER Attending Unavailable HEMLEROY, JULIA Caldwell Attending Unavailable Isak Castillo Attending Unavailab Isak Olivera Admitting Unavailab Alma Rosa Trejo Primary Care Unavailable Allergies Allergy Classification Reported Allergen(s) Allergy Type Date of Onset Reaction(s) Facility (2 sources) Azithromycin; Translations: [Zithromax] Drug Allergy [facility] (1 source) Cephalexin Drug Allergy 1 [facility] (1 source) Corticosteroids Drug allergy (disorder) [facility] (2 sources) Morphine; Translations: [morphine] Drug Allergy [facility] (2 sources) moxifloxacin; Translations: [Avelox] Drug Allergy [facility] (2 sources) Nitrofurantoin; Translations: [Macrobid] Drug Allergy [facility] (2 sources) Azithromycin; Translations: [azithromycin] Drug Allergy 3 Eruption of skin (disorder), Unknown [facility] (2 sources) Morphine; Translations: [morphine] Drug Allergy 6 Vomiting (disorder), Unknown [facility] (2 sources) moxifloxacin; Translations: [moxifloxacin] Drug Allergy 3 Eruption of skin (disorder), Rash, Unknown [facility] (1 source) NITROFURANTOIN, MACROCRYSTALS / Nitrofurantoin, Monohydrate; Translations: [nitrofurantoin] Drug Allergy Skin irritation (disorder) [facility] (1 source) Cephalexin Drug Allergy 3 Rash [facility] (1 source) Corticosteroids and derivatives Drug Allergy 6 Unknown [facility] (1 source) Nitrofurantoin Drug Allergy 3 Unknown [facility] (1 source) Nitrofurantoin Drug Allergy 3 Unknown [facility] Healthcare Medications Current Medications Medication Drug Class(es) Dates Sig (Normalized) Sig (Original) Percocet (2 sources) Opioid Agonist Start: 03-15-2020 Percocet 7.5/3 25 1 tab(s), Oral, BID Pain 1-5, Refill(s) 0 Start Date: 03/15/20 Status: Ordered take 1 tablet by clif th every twelve hours oxyCODONE-acetaminophen (Percocet) 5-325 MG tablet Take 1 tablet by mouth every 12 (twelve) hours. PRN 0 Active [id number] actuat albuterol 0.09 mg/actuat metered dose [...] time. 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 CURRENT DRUG THERAPY] Onset: 04-14-2022 Episodic Other [...] Range Facility Physician Orderon 06-05-2023 Physician Order [id number]:127 Normal [facility] BMPon 05-09-2023 Anion gap [Moles/Vol] 10 mmol/L Normal 6-16 [facility] Comment on above: Performed By: #### 2 [id number], [id number], [id number] #### [facility] [address] [place] [address] Calcium [Mass/Vol] 9.1 mg/dL Normal 8.9-11.1 [facility] Comment on above: Performed By: #### 2 [id number], [id number], [id number] #### [facility] [address] [place] [address] Chloride [Moles/Vol] 104 mmol/L Normal 101-111 [facility] Comment on above: Performed By: #### 2 500909, [id number], [id number] #### [facility] [address] [place] [address] CO2 [Moles/Vol] 27 mmol/L Normal 21-31 [facility] Comment on above: Performed By: #### 2 387129, [id number], [id number] #### [facility] [address] [place] [address] Creatinine [Mass/Vol] 0.7 mg/dL Normal 0.5-1.3 [facility] Comment on above: Performed By: #### 2 [id number], [id number], [id number] #### [facility] [address] [place] [address] Glucose [Mass/Vol] 136 mg/dL Normal 55-199 [facility] Comment on above: Result Comment: If t his glucose result represents a fasting glucose, interpretation should refer to the following reference range: 55-99 mg/dL Performed By: #### 2 068478, [id number], [id number] #### [facility] [address] [place] [address] Potassium [Moles/Vol] 4.4 mmol/L Normal 3.5-5.3 [facility] Comment on above: Performed By: #### 2 372717, [id number], 3170529 #### [facility] [address] [place] [address] Sodium [Moles/Vol] 137 mmol/L Normal 135-145 [facility] Comment on above: Performed By: #### 2 747522, [id number], [id number] #### [facility] [address] [place] [address] Urea nitrogen [Mass/Vol] 8 mg/dL Normal 5-21 [facility] Comment on above: Performed By: #### 2 814912, [id number], [id number] #### [facility] [address] [place] [address] Urea nitrogen/Creatinine [Mass ratio] 11 No Units Normal 10-20 [facility] Comment on above: Performed By: #### 2 700420, [id number], [id number] #### [facility] [address] [place] [address] CBC w/Indiceson 08-16-2023 Erythrocyte distribution width (RBC) [Ratio] 14.6 % High 10.9-14.2 [facility] Comment on above: Performed By: #### 2 457813, [id number], 0106001 #### [facility] [address] [place] [address] Hematocrit (Bld) [Volume fraction] 43.8 % Normal 34.0-46.0 [facility] Comment on above: Performed By: #### 2 636251, [id number], [id number] #### [facility] [address] [place] [address] Hemoglobin (Bld) [Mass/Vol] 14.9 g/dL Normal 12.0-16.0 [facility] Comment on above: Performed By: #### 2 691860, [id number], 5369283 #### [facility] [address] [place] [address] MCH (RBC) [Entitic mass] 29.2 pg Normal 27.0-34.0 [facility] Comment on above: Performed By: #### 2 789923, [id number], 6420684 #### [facility] [address] [place] [address] MCHC (RBC) [Mass/Vol] 34.0 g/dL Normal 31.4-36.0 [facility] Comment on above: Performed By: #### 2 884586, [id number], 3478497 #### [facility] [address] [place] [address] MCV (RBC) [Entitic vol] 86.1 fL Normal 80.0-100.0 [facility] Comment on above: Performed By: #### 2 824493, [id number], 0375469 #### [facility] [address] [place] [address] Platelet mean volume (Bld) [Entitic vol] 8.3 fL Normal 6.4-10.8 [facility] Comment on above: Performed By: #### 2 912448, 04126306, 7450121 #### [facility] [address] [place] [address] Platelets (Bld) [#/Vol] 229.0 E9/L Normal 150.0-500.0 [facility] Comment on above: Performed By: #### 2 333583, 74776047, 9613943 #### [facility] [address] [place] [address] RBC (Bld) [#/Vol] 5.1 E12/L Normal 4.3-5.9 [facility] Comment on above: Performed By: #### 2 366013, [id number], 1765757 #### [facility] [address] [place] [address] WBC corrected for nucl RBC Auto (Bld) [#/Vol] 8.1 E9/L Normal 4.0-11.0 [facility] Comment on above: Performed By: #### 2 255680, [id number], 7909866 #### [facility] [address] [place] [address] CHEMISTRYOrdered By: SYSTEM SYSTEM on 05-09-2023 Anion gap [Moles/Vol] 10 mmol/L Normal 6 - 16 mEq/L [facility] Remisol Calcium [Mass/Vol] 9.1 mg/dL Normal 8.9 - 11. 1 mg/dL [facility] Remisol Chloride [Moles/Vol] 104 mmol/L Normal 101 - 1 11 mmol/L [facility] Remisol CO2 [Moles/Vol] 27 mmol/L Normal 21 - 31 mmol/L [facility] Remisol Creatinine [Mass/Vol] 0.7 mg/dL Normal 0.5 - 1.3 mg/dL [facility] GFR/1.73 sq M.predicted among non-blacks MDRD (S/P/Bld) [Vol rate/Area] 103 mL/min/1.73 m2 Normal >=59mL/min/1.7 3 m2 [facility] Chem S Glucose [Mass/Vol] 136 mg/dL Normal 55 - 199 mg/dL [facility] Potassium [Moles/Vol] 4.4 mmol/L Normal 3.5 - 5.3 mmol/L [facility] Sodium [Moles/Vol] 137 mmol/L Normal 135 - 145 mmol/L [facility] Urea nitrogen [Mass/Vol] 8 mg/dL Normal 5 - 21 mg/dL [facility] Urea nitrogen/Creatinine [Mass ratio] 11 mg/mg Normal 10 - 20 [facility] Consent for Treatmenton 04-24 Consent for Treatment [id number] [facility] [id number]:127 Normal [facility] HEMATOLOGYOrdered By: Serjio Wolfe on 05-09-2023 Erythrocyte distribution width (RBC) [Ratio] 14.6 % High 10.9 - 14.2 % [facility] Hematocrit (Bld) [Volume fraction] 43.8 % Normal 34.0 - 46.0 % [facility] Hemoglobin (Bld) [Mass/Vol] 14.9 g/dL Normal 12.0 - 16.0 gm/dL [facility] MCH (RBC) [Entitic mass] 29.2 pg Normal 27.0 - 34.0 pg [facility] MCHC (RBC) [Mass/Vol] 34.0 g/dL Normal 31.4 - 36.0 gm/dL [facility] MCV (RBC) [Entitic vol] 86.1 fL Normal 80.0 - 100.0 fL [facility] Platelet mean volume (Bld) [Entitic vol] 8.3 fL Normal 6.4 - 10.8 fL [facility] Platelets (Bld) [#/Vol] 229.0 E9/L Normal 150.0 - 500.0 E9/L [facility] RBC (Bld) [#/Vol] 5.1 E12/L Normal 4.3 - 5.9 E12/L [facility] WBC corrected for nucl RBC Auto (Bld) [#/Vol] 8.1 E9/L Normal 4.0 - 11.0 E9/L [facility] eGFRon 05-09-2023 GFR/1.73 sq M.predicted among non-blacks MDRD (S/P/Bld) [Vol rate/Area] 103 mL/min/1.73 m2 Normal >=59 [facility] Comment on above: Order Comment: Order added by Discern Expert. Result Comment: Punch Box Tender iona kidney disease could be indicated at eGFR's of less than 60 mL/min/1.73m2. Kidney failure is indicated at less than 15 mL/min/1.73m2. Performed By: #### 2 [id number], [id number], [id number] #### [facility] [address] [place] [address] MRI ABDOMEN WO W CONon 08-15 MRI [...] Date: 2022-08-15 09:36 Normal [facility] CREATININEon 08-11-2022 Creatinine [Mass/Vol] 0.79 mg/dL Normal 0.55-1.02 [facility] Comment on above: Performed By: #### G IPANEL #### [facility] [address] [place], [place] [address] Dr. Steven Simon EGFR-AF GRENADIAN >60 Normal >=60 [facility] Comment on above: Performed By: #### G IPANEL #### [facility] [address], [place] [address] Dr. Steven Simon EGFR-NON AF GRENADIAN >60 Normal >=60 [facility] Comment on above: Performed By: #### G IPANEL #### [facility] [address], [place] [address] Dr. Steven Simon US PELVIS AND TRANSVAGon [...] Date: 2022-07-24 07:22 Normal [facility] XR CHEST 2 Von 04-20-2022 XR CHEST 2 V EXAM: XR CHEST 2 V HISTORY: Cough. COMPARISON: 04/13/2022 TECHNIQUE: Frontal and lateral chest FINDINGS: Heart and vascularity are unremarkable. Lungs are expanded and free of focal infiltrates. No acute bony abnormality is appreciated. IMPRESSION: No acute heart or lung disease identified. Electronically authenticated by: HUMPHREY MARVIN Date: 2022-04-20 07:59 Normal [facility] Covid-19 PCR (CVDTB)on 03-25 SARS-CoV-2 (COVID-19) RNA TATIANA+probe Ql (Unsp spec) Not detected Normal NOT DETECTED [facility] Comment on above: Result Comment: When diagnostic [...] for this test is supported by the [place] of Health and Human Service's declaration that [...] By: #### G IPANEL #### [facility] [address] [place] [address] Dr. Steven Simon XR CHEST 1 Von [...] Date: 2022-04-13 10:15 Normal [facility] GIARDIA LAMBLIA AND CRYPTO D ETECTIONon 04-11-2022 Cryptosporidium EIA Negative Normal Negative [facility] Comment on above: Performed By: #### G IACRY #### [facility] [address] [place] [address] Dr. Steven Simon Giardia lamblia Ag, EIA Negative Normal Negative [facility] Comment on above: Performed By: #### G IACRY #### [facility] [address] [place] [address] Dr. Steven Simon OVA AND PARASITE EXAMINATION on 04-11-2022 O AND P Exam, Formalin Only Final report Normal [facility] Comment on above: Result Comment: Refe rence Range: None Seen No PVA preserved specimen received. For optimal O and P results we suggest the use of O and P kits containing both formalin and PVA. These kits are available from your access service representative. Performed By: #### E RUR #### [facility] [address] [place] [address] Dr. Steven Simon Result 1 Comment Normal [facility] Comment on above: Result Comment: No o va, cysts, or parasites seen. . One negative specimen does not rule out the possibility of a parasitic infection. Performed By: #### E RUR #### [facility] [address] [place] [address] Dr. Steven Simon CBC AUTO DIFFon 02-10-2022 BASO # 0.0 103/ul Normal 0.0-0.1 [facility] Comment on above: Performed By: #### C BC #### [facility] [address] [place] [address] Dr. Steven Simon Basophils/100 WBC (Bld) 0.2 % Normal 0.2-2.0 [facility] Comment on above: Performed By: #### C BC #### [facility] [address] [place] [address] Dr. Steven Simon EO # 0.0 103/ul Normal 0.0-0.7 [facility] Comment on above: Performed By: #### C BC #### [facility] [address] [place] [address] Dr. Steven Simon Eosinophils/100 WBC (Bld) 0.6 % Critically low 0.9-7.0 [facility] Comment on above: Performed By: #### C BC #### [facility] [address] [place] [address] Dr. Steven Simon Erythrocyte distribution width (RBC) [Ratio] 13.8 % Normal 11.0-15.0 [facility] Comment on above: Performed By: #### C BC #### [facility] [address] [place] [address] Dr. Steven Simon Hematocrit (Bld) [Volume fraction] 46.6 % Normal 36.0-48.0 [facility] Comment on above: Performed By: #### C BC #### [facility] [address] [place] [address] Dr. Steven Simon Hemoglobin (Bld) [Mass/Vol] 14.9 g/dL Normal 12.0-16.0 [facility] Comment on above: Performed By: #### C BC #### [facility] [address] [place] [address] Dr. Steven Simon IG # 0.02 10e3/ul Normal 0.00-0.03 [facility] Comment on above: Performed By: #### C BC #### [facility] [address] [place] [address] Dr. Steven Simon IG % 0.3 % Normal 0.0-0.5 [facility] Comment on above: Performed By: #### C BC #### [facility] [address] [place] [address] Dr. Steven Simon LYMPH # 1.4 103/ul Normal 1.2-3.8 [facility] Comment on above: Performed By: #### C BC #### [facility] [address] [place] [address] Dr. Steven Simon Lymphocytes/100 WBC (Bld) 21.4 % Normal 20.5-60.0 [facility] Comment on above: Performed By: #### C BC #### [facility] [address] [place] [address] Dr. Steven Simon MANUAL DIFF REQ NO Normal [facility] Comment on above: Performed By: #### C BC #### [facility] [address] [place] [address] Dr. Steven Simon MCH (RBC) [Entitic mass] 28.9 pg Normal 26.7-34.0 [facility] Comment on above: Performed By: #### C BC #### [facility] [address] [place] [address] Dr. Steven Simon MCHC (RBC) [Mass/Vol] 32.0 g/dL Normal 29.9-35.2 [facility] Comment on above: Performed By: #### C BC #### [facility] [address] [place] [address] Dr. Steven Simon MCV (RBC) [Entitic vol] 90.5 fL Normal 81.0-99.0 [facility] Comment on above: Performed By: #### C BC #### [facility] [address] [place] [address] Dr. Steven Simon MONO # 0.9 103/ul Critically high 0.3-0.8 [facility] Comment on above: Performed By: #### C BC #### [facility] [address] [place] [address] Dr. Steven Simon Monocytes/100 WBC (Bld) 13.7 % Critically high 1.7-12.0 [facility] Comment on above: Performed By: #### C BC #### [facility] [address] [place] [address] Dr. Steven Simon NEUT # 4.1 103/ul Normal 1.4-6.5 [facility] Comment on above: Performed By: #### C BC #### [facility] [address] [place] [address] Dr. Steven Simon Neutrophils/100 WBC (Bld) 63.8 % Normal 43.0-75.0 [facility] Comment on above: Performed By: #### C BC #### [facility] [address] [place] [address] Dr. Steven Simon Platelet mean volume (Bld) [Entitic vol] 9.9 fL Normal 9.5-13.5 [facility] Comment on above: Performed By: #### C BC #### [facility] [address] [place] [address] Dr. Steven Simon PLT 195 103/ul Normal 150-450 [facility] Comment on above: Performed By: #### C BC #### [facility] [address] [place] [address] Dr. Steven Simon RBC 5.15 106/ul Normal 4.20-5.40 [facility] Comment on above: Performed By: #### C BC #### [facility] [address] [place] [address] Dr. Steven Simon WBC 6.4 103/ul Normal 4.0-11.0 [facility] Comment on above: Performed By: #### C BC #### [facility] [address] [place] [address] Dr. Steven Simon Covid-19 PCR ([facility])on 01-23 SARS-CoV-2 (COVID-19) RNA TATIANA+probe Ql (Unsp spec) Not detected Normal NOT DETECTED [facility] Comment on above: Result Comment: When diagnostic [...] for this test is supported by the [place] of Health and Human Service's declaration that [...] By: #### C VDTBH #### [facility] [address] [place] [address] Dr. Steven Simon GI PANEL (PCR)on 02-10-2022 Adenovirus F 40/41 Not detected Normal NOT DETECTED [facility] Comment on above: Performed By: #### G IPANEL #### [facility] [address] [place] [address] Dr. Steven Simon Astrovirus Not detected Normal NOT DETECTED [facility] Comment on above: Performed By: #### G IPANEL #### [facility] [address] [place] [address] Dr. Steven Simon C. Diff toxin A/B Not detected Normal NOT DETECTED [facility] Comment on above: Performed By: #### G IPANEL #### [facility] [address] [place] [address] Dr. Steven Simon Campylobacter Not detected Normal NOT DETECTED [facility] Comment on above: Performed By: #### G IPANEL #### [facility] [address] [place] [address] [address] Steven Simon Cryptosporidium Not detected Normal NOT DETECTED [facility] Comment on above: Performed By: #### G IPANEL #### [facility] [address] [place] [address] Dr. Steven Simon Cyclos. Cayetanensis Not detected Normal NOT DETECTED [facility] Comment on above: Performed By: #### G IPANEL #### [facility] [address] [place] [address] [address] Steven Simon E. Coli O157 Not Applicable Normal Not Applicable [facility] Comment on above: Performed By: #### G IPANEL #### [facility] [address] [place] [address] Dr. Steven Simon E. histolytica Not detected Normal NOT DETECTED The [facility] Comment on above: Performed By: #### G IPANEL #### [facility] [address] [place] [address] Dr. Steven Simon EAEC Not detected Normal NOT DETECTED [facility] Comment on above: Performed By: #### G IPANEL #### [facility] [address] [place] [address] Dr. Steven Simon EIEC Not detected Normal NOT DETECTED [facility] Comment on above: Performed By: #### G IPANEL #### [facility] [address] [place] [address] Dr. Steven Simon EPEC Not detected Normal NOT DETECTED [facility] Comment on above: Performed By: #### G IPANEL #### [facility] [address] [place] [address] [address] Steven Simon ETEC Not detected Normal NOT DETECTED [facility] Comment on above: Performed By: #### G IPANEL #### [facility] [address] [place] [address] Dr. Steven Simon G. Lamblia Not detected Normal NOT DETECTED [facility] Comment on above: Performed By: #### G IPANEL #### [facility] [address] [place] [address] [address] Steven MOSS CONTROLS PASSED Normal [facility] Comment on above: Performed By: #### G IPANEL #### [facility] [address] [place] [address] [address] Steven [facility] HEADER GI PANEL BACTERIA Normal [facility] Comment on above: Performed By: #### G IPANEL #### [facility] [address] [place] [address] [address] Steven CARDENAS ECOLI GI PANEL DIARRHEAGENIC E.COLI / SHIGELLA Normal [facility] Comment on above: Performed By: #### G IPANEL #### [facility] [address] [place] [address] [address] Steven CARDENAS INFO SEE BELOW Normal [facility] Comment on above: Result Comment: EAEC - Enteroaggregative E. Coli EPEC- Enteropathogenic E. Coli ETEC- Enterotoxigenic E. Coli lt/st STEC- Shigella-like toxin-producing E. Coli stx1/stx2 EIEC- Shigella/Enteroinvasive E. Coli Performed By: #### G IPANEL #### [facility] [address] [address] [address] Steven CARDENAS PARASITES GI PANEL PARASITES Normal [facility] Comment on above: Performed By: #### G IPANEL #### [facility] [address] [place] [address] [address] Steven CARDENAS VIRUS GI PANEL VIRUSES Normal [facility] Comment on above: Performed By: #### G IPANEL #### [facility] [address] [place] [address] [address] Steven Simon Norovirus GI/GII Not detected Normal NOT DETECTED [facility] Comment on above: Performed By: #### G IPANEL #### [facility] [address] [place] [address] [address] Steven Simon P. Shigelloides Not detected Normal NOT DETECTED [facility] Comment on above: Performed By: #### G IPANEL #### [facility] [address] [place] [address] Dr. Steven Simon Rotavirus A Detected Abnormal NOT DETECTED The [facility] Comment on above: Performed By: #### G IPANEL #### [facility] [address] [place] [address] Dr. Steven Simon Salmonella Not detected Normal NOT DETECTED [facility] Comment on above: Performed By: #### G IPANEL #### [facility] [address] [place] [address] Dr. Stevne Simon Sapovirus Not detected Normal NOT DETECTED [facility] Comment on above: Performed By: #### G IPANEL #### [facility] [address] [place] [address] Dr. Steven Simon STEC Not detected Normal NOT DETECTED [facility] Comment on above: Performed By: #### G IPANEL #### [facility] [address] [place] [address] Dr. Steven Simon Vibrio Not detected Normal NOT DETECTED [facility] Comment on above: Performed By: #### G IPANEL #### [facility] [address] [place] [address] Dr. Steven Simon Vibrio Cholera Not detected Normal NOT DETECTED The [facility] Comment on above: Performed By: #### G IPANEL #### [facility] [address] [place] [address] Dr. Steven Simon Y. Enterocolitica Not detected Normal NOT DETECTED [facility] Comment on above: Performed By: #### G IPANEL #### [facility] [address] [place] [address] Dr. Steven Simon LACTATE/LACTIC ACIDon 2021 Lactate [Moles/Vol] 0.6 mmol/L Normal 0.4-1.9 [facility] Comment on above: Performed By: #### G IPANEL #### [facility] [address] [place] [address] Dr. Steven Simon PROF 14(COMP METB)on 022 Albumin [Mass/Vol] 3.3 g/dL Critically low 3.4-5.0 Th [facility] Comment on above: Performed By: #### E RUR #### [facility] [address] [address] [address] Steven Simon Albumin/Globulin [Mass ratio] 0.9 {ratio} Normal [facility] Comment on above: Performed By: #### E RUR #### [facility] [address] [address] [address] Steven Simon ALP [Catalytic activity/Vol] 63 U/L Normal 46-116 [facility] Comment on above: Performed By: #### E RUR #### [facility] [address] [address] [address] Steven Simon ALT [Catalytic activity/Vol] 26 U/L Normal 14-59 [facility] Comment on above: Performed By: #### E RUR #### [facility] [address] [place] [address] Dr. Steven Simon Anion gap [Moles/Vol] 12.2 mmol/L Normal [facility] Comment on above: Performed By: #### E RUR #### [facility] [address] [place] [address] Dr. Steven Simon AST [Catalytic activity/Vol] 18 U/L Normal 15-37 [facility] Comment on above: Performed By: #### E RUR #### [facility] [address] [place] [address] Dr. Steven Simon Bilirubin [Mass/Vol] 0.6 mg/dL Normal 0.2-1.0 [facility] Comment on above: Performed By: #### E RUR #### [facility] [address] [place] [address] Dr. Steven Simon Calcium [Mass/Vol] 7.6 mg/dL Critically low 8.5-10.1 [facility] Comment on above: Performed By: #### E RUR #### [facility] [address] [place] [address] Dr. Steven Simon Chloride [Moles/Vol] 102 mmol/L Normal 98-107 [facility] Comment on above: Performed By: #### E RUR #### [facility] [address] [address] [address] Steven Simon CO2 [Moles/Vol] 24.6 mmol/L Normal 21.0-32.0 [facility] Comment on above: Performed By: #### E RUR #### [facility] [address] [address] [address] Steven Simon Creatinine [Mass/Vol] 0.71 mg/dL Normal 0.55-1.02 [facility] Comment on above: Performed By: #### E RUR #### [facility] [address] [address] [address] Steven Simon EGFR-AF GRENADIAN >60 Normal >=60 [facility] Comment on above: Performed By: #### E RUR #### [facility] [address] [place] [address] Dr. Steven Simon EGFR-NON AF GRENADIAN >60 Normal >=60 [facility] Comment on above: Performed By: #### E RUR #### [facility] [address] [place] [address] Dr. Steven Simon Globulin (S) [Mass/Vol] 3.6 g/dL Normal [facility] Comment on above: Performed By: #### E RUR #### [facility] [address] [place] [address] Dr. Steven Simon Glucose [Mass/Vol] 146 mg/dL Critically high 74-106 [facility] Comment on above: Performed By: #### E RUR #### [facility] [address] [address] [address] Steven Simon Potassium [Moles/Vol] 3.8 mmol/L Normal 3.5-5.1 [facility] Comment on above: Performed By: #### E RUR #### [facility] [address] [place] [address] Dr. Steven Simon Protein [Mass/Vol] 6.9 g/dL Normal 6.4-8.2 [facility] Comment on above: Performed By: #### E RUR #### [facility] [address] [place] [address] Dr. Steven Simon Sodium [Moles/Vol] 135 mmol/L Critically low 136-145 Th e [facility] Comment on above: Performed By: #### E RUR #### [facility] [address] [address] [address] Steven Simon Urea nitrogen [Mass/Vol] 7.0 mg/dL Normal 7.0-18.0 [facility] Comment on above: Performed By: #### E RUR #### [facility] [address] [address] [address] Steven Simon Urea nitrogen/Creatinine [Mass ratio] 9.9 mg/mg Normal [facility] Comment on above: Performed By: #### E RUR #### [facility] [address] [address] [address] Steven Simon XR CHEST 2 Von [...] Date: 2021-12-29 08:02 Normal [facility] Covid-19 PCR (CVDTB)on SARS-CoV-2 (COVID-19) RNA TATIANA+probe Ql (Unsp spec) Not detected Normal NOT DETECTED [facility] Comment on above: Result Comment: This test is not yet approved or cleared by the [place] FDA. When there are no FDA-approved or cleared tests available, and other criteria are met, FDA can make tests available under an emergency access mechanism called an Emergency Use Authorization (EUA). The EUA for this test is supported by the Die Equipment Operator of Health and Human Service's (HHS's) declaration [...] By: #### C VDTB #### [facility] [address] [place], [place] [address] Dr. Steven Simon Microalbumin (with Creat)on 11-15-2021 mALB <1.2 [facility] Comment on above: Result Comment: Unab le to calculate mALB/Crea ratio, mALB is <1.2 mg/dL mALB reference range not established. Performed By: #### m ALBC #### [facility] [address], [place] [id number] UCREA 86 mg/dL Normal 28-217 [facility] Comment on above: Performed By: #### m ALBC #### [facility] [address], [place] [id number] Comprehensive Metabolic Pane martha 11-08-2021 Albumin [Mass/Vol] 4.3 g/dL Normal 3.6-5.1 [facility] Comment on above: Performed By: #### C MP, LIPD, TSH reflex FT4 #### [facility] [address], [place] [id number] Albumin/Globulin [Mass ratio] 2.0 {ratio} Normal 1.0-2.5 [facility] Comment on above: Performed By: #### C MP, LIPD, TSH reflex FT4 #### [facility] [address], [place] [id number] ALP [Catalytic activity/Vol] 64 U/L Normal 35-119 [facility] Comment on above: Performed By: #### C MP, LIPD, TSH reflex FT4 #### [facility] [address], [place] [id number] ALT [Catalytic activity/Vol] 30 U/L Normal 6-33 [facility] Comment on above: Result Comment: 08/24 Female reference range changed. Performed By: #### C MP, LIPD, TSH reflex FT4 #### [facility] [address], [place] [id number] Anion gap [Moles/Vol] 16 mmol/L Normal 12-20 [facility] Comment on above: Result Comment: Effe ctive 09/29/2019 reference range changed. Performed By: #### C MP, LIPD, TSH reflex FT4 #### [facility] [address], [place] [id number] AST [Catalytic activity/Vol] 30 U/L Normal 9-34 [facility] Comment on above: Performed By: #### C MP, LIPD, TSH reflex FT4 #### [facility] [address], [place] [id number] Bilirubin [Mass/Vol] 0.51 mg/dL Normal 0.30-1.20 [facility] Comment on above: Performed By: #### C MP, LIPD, TSH reflex FT4 #### [facility] [address], [place] [id number] BUN/CREA 14 Ratio Normal 6-22 [facility] Comment on above: Performed By: #### C MP, LIPD, TSH reflex FT4 #### [facility] [address], [place] [id number] Calcium [Mass/Vol] 9.5 mg/dL Normal 8.6-10.2 [facility] Comment on above: Performed By: #### C MP, LIPD, TSH reflex FT4 #### [facility] [address], [place] [id number] Chloride [Moles/Vol] 102 mmol/L Normal 98-107 [facility] Comment on above: Performed By: #### C MP, LIPD, TSH reflex FT4 #### [facility] [address], [place] [id number] CO2 [Moles/Vol] 25 mmol/L Normal 20-31 [facility] Comment on above: Performed By: #### C MP, LIPD, TSH reflex FT4 #### [facility] [address], [place] [id number] Creatinine [Mass/Vol] 0.8 mg/dL Normal 0.6-1.4 [facility] Comment on above: Performed By: #### C MP, LIPD, TSH reflex FT4 #### [facility] [address], [place] [id number] eGFRAA 98 mL/min/1.73m2 Normal >60 [facility] Comment on above: Performed By: #### C MP, LIPD, TSH reflex FT4 #### [facility] [address], [place] [id number] eGFRNAA 81 mL/min/1.73m2 Normal >60 [facility] Comment on above: Performed By: #### C MP, LIPD, TSH reflex FT4 #### [facility] [address], [place] [id number] Globulin (S) [Mass/Vol] 2.2 g/dL Normal 1.9-3.7 [facility] Comment on above: Performed By: #### C MP, LIPD, TSH reflex FT4 #### [facility] [address], [place] [id number] Glucose [Mass/Vol] 128 mg/dL High 65-99 [facility] Comment on above: Result Comment: For FASTING Glucose --- ADA reference ranges: Normal 65-99 mg/dl Prediabetes 100-125 Diabetes >/= 126 Performed By: #### C MP, LIPD, TSH reflex FT4 #### [facility] [address], [place] [id number] Potassium [Moles/Vol] 4.7 mmol/L Normal 3.5-5.5 [facility] Comment on above: Performed By: #### C MP, LIPD, TSH reflex FT4 #### [facility] [address], [place] [id number] Protein [Mass/Vol] 6.5 g/dL Normal 6.1-8.1 [facility] Comment on above: Performed By: #### C MP, LIPD, TSH reflex FT4 #### [facility] [address], [place] [id number] Sodium [Moles/Vol] 139 mmol/L Normal 135-146 [facility] Comment on above: Performed By: #### C MP, LIPD, TSH reflex FT4 #### [facility] [address], [place] [id number] Urea nitrogen [Mass/Vol] 10 mg/dL Normal 7-25 [facility] Comment on above: Performed By: #### C MP, LIPD, TSH reflex FT4 #### [facility] [address], [place] [id number] Hemoglobin A1Con 11-08-2021 EAG 142.72 Normal [facility] Comment on above: Performed By: #### A 1C #### [facility] [address], [place] [id number] HbA1c (Bld) [Mass fraction] 6.6 % High 4.0-6.0 [facility] Comment on above: Performed By: #### A 1C #### [facility] [address], [place] [id number] Lipid Panelon 11-08-2021 Cholesterol [Mass/Vol] 245 mg/dL High 125-200 [facility] Comment on above: Result Comment: Low risk < 200mg/dL Borderline risk 201-239 mg/dl High risk > or equal to 240 Performed By: #### C MP, LIPD, TSH reflex FT4 #### [facility] [address], [place] [id number] Cholesterol in HDL [Mass/Vol] 42 mg/dL Normal >40 [facility] Comment on above: Result Comment: High Cardiovascular Risk HDL <40 mg/dL Low Cardiovascular Risk HDL > or equal to 60 mg/dl Performed By: #### C MP, LIPD, TSH reflex FT4 #### [facility] [address], [place] [id number] Cholesterol in LDL [Mass/Vol] 168 mg/dL Normal [facility] Comment on above: Result Comment: LDL ATP III CLASSIFICATION LDL less than 100 mg/dl Optimal LDL 100-129 mg/dl Near or above optimal LDL 130-159 Borderline high LDL 160-189 High LDL greater than 189 mg/dl Very High Performed By: #### C MP, LIPD, TSH reflex FT4 #### [facility] [address], [place] [id number] Cholesterol in VLDL [Mass/Vol] 35 mg/dL Normal [facility] Comment on above: Performed By: #### C SHERI, LIPD, TSH reflex FT4 #### [facility] [address], [place] [id number] Cholesterol.total/Cho lesterol in HDL [Mass ratio] 6 {ratio} Normal [facility] Comment on above: Performed By: #### C MP, LIPD, TSH reflex FT4 #### [facility] [address], [place] [id number] Triglyceride [Mass/Vol] 177 mg/dL High 30-150 [facility] Comment on above: Result Comment: TRIG ATPIII CLASSIFICATIONS TRIG less than 150 mg/dl Normal TRIG 150-199 mg/dl Borderline High TRIG 200-500 mg/dl High TRIG greather than 500 mg/dl Very High Performed By: #### C MP, LIPD, TSH reflex FT4 #### [facility] [address], [place] [id number] TSH w/ Reflex to Free T4on 0 11-08-2021 TSH 0.949 uIU/mL Normal 0.400-4.500 [facility] Comment on above: Performed By: #### C SHERI, LIPD, TSH reflex FT4 #### [facility] [address], [place] [id number] HEPATITIS PANEL, ACUTEon HBsAg Screen Negative Normal Negative [facility] Comment on above: Performed By: #### H EPACUT #### [facility] [address] [place] [address] Dr. Steven Simon Hep A Ab, IgM Negative Normal Negative [facility] Comment on above: Performed By: #### H EPACUT #### [facility] [address] [address] [address] Steven Simon Hep B Core Ab, IgM Negative Normal Negative [facility] Comment on above: Performed By: #### H EPACUT #### [facility] [address] [address] [address] Steven Simon Hep C Virus Ab 0.1 s/co ratio Normal 0.0-0.9 [facility] Comment on above: Result Comment: Nega tive: < 0.8 Indeterminate: 0.8 - 0.9 Positive: > 0.9 . The CDC recommends that a positive HCV antibody result be followed up with a HCV Nucleic Acid Amplification test (576199). Effective December 05, 2021 Hepatitis Panel (4) will be made non-orderable. [facility] offers order code [id number] Acute Hepatitis. Performed By: #### H EPACUT #### [facility] [address] [place] [address] Dr. Steven Simon CBC AUTO DIFFon 09-26-2021 BASO # 0.1 103/ul Normal 0.0-0.1 [facility] Comment on above: Performed By: #### G IPANEL #### [facility] [address] [place] [address] Dr. Steven Simon Basophils/100 WBC (Bld) 1.0 % Normal 0.2-2.0 [facility] Comment on above: Performed By: #### G IPANEL #### [facility] [address] [place] [address] Dr. Steven Simon EO # 0.1 103/ul Normal 0.0-0.7 [facility] Comment on above: Performed By: #### G IPANEL #### [facility] [address] [place] [address] Dr. Steven Simon Eosinophils/100 WBC (Bld) 1.1 % Normal 0.9-7.0 [facility] Comment on above: Performed By: #### G IPANEL #### [facility] [address] [place] [address] Dr. Steven Simon Erythrocyte distribution width (RBC) [Ratio] 13.2 % Normal 11.0-15.0 [facility] Comment on above: Performed By: #### G IPANEL #### [facility] [address] [place] [address] Dr. Steven Simon Hematocrit (Bld) [Volume fraction] 44.8 % Normal 36.0-48.0 [facility] Comment on above: Performed By: #### G IPANEL #### [facility] [address] [place] [address] Dr. Steven Simon Hemoglobin (Bld) [Mass/Vol] 14.5 g/dL Normal 12.0-16.0 [facility] Comment on above: Performed By: #### G IPANEL #### [facility] [address] [place] [address] Dr. Steven Simon IG # 0.02 10e3/ul Normal 0.00-0.03 [facility] Comment on above: Performed By: #### G IPANEL #### [facility] [address] [place] [address] Dr. Steven Simon IG % 0.2 % Normal 0.0-0.5 [facility] Comment on above: Performed By: #### G IPANEL #### [facility] [address] [place] [address] Dr. Steven Simon LYMPH # 3.6 103/ul Normal 1.2-3.8 [facility] Comment on above: Performed By: #### G IPANEL #### [facility] [address] [place] [address] Dr. Steven Simon Lymphocytes/100 WBC (Bld) 43.3 % Normal 20.5-60.0 [facility] Comment on above: Performed By: #### G IPANEL #### [facility] [address] [place] [address] Dr. Steven Simon MANUAL DIFF REQ NO Normal [facility] Comment on above: Performed By: #### G IPANEL #### [facility] [address] [place] [address] Dr. Steven Simon MCH (RBC) [Entitic mass] 28.6 pg Normal 26.7-34.0 [facility] Comment on above: Performed By: #### G IPANEL #### [facility] [address] [place] [address] Dr. Steven Simon MCHC (RBC) [Mass/Vol] 32.4 g/dL Normal 29.9-35.2 [facility] Comment on above: Performed By: #### G IPANEL #### [facility] [address] [place] [address] Dr. Steven Simon MCV (RBC) [Entitic vol] 88.4 fL Normal 81.0-99.0 [facility] Comment on above: Performed By: #### G IPANEL #### [facility] [address] [place] [address] Dr. Steven Simon MONO # 0.6 103/ul Normal 0.3-0.8 [facility] Comment on above: Performed By: #### G IPANEL #### [facility] [address] [place] [address] Dr. Steven Simon Monocytes/100 WBC (Bld) 7.5 % Normal 1.7-12.0 [facility] Comment on above: Performed By: #### G IPANEL #### [facility] [address] [place] [address] Dr. Steven Simon NEUT # 3.9 103/ul Normal 1.4-6.5 [facility] Comment on above: Performed By: #### G IPANEL #### [facility] [address] [place] [address] Dr. Steven Simon Neutrophils/100 WBC (Bld) 46.9 % Normal 43.0-75.0 [facility] Comment on above: Performed By: #### G IPANEL #### [facility] [address] [place] [address] Dr. Steven Simon Platelet mean volume (Bld) [Entitic vol] 9.8 fL Normal 9.5-13.5 [facility] Comment on above: Performed By: #### G IPANEL #### [facility] [address] [place] [address] Dr. Steven Simon PLT 282 103/ul Normal 150-450 [facility] Comment on above: Performed By: #### G IPANEL #### [facility] [address] [place] [address] Dr. Steven Simon RBC 5.07 106/ul Normal 4.20-5.40 [facility] Comment on above: Performed By: #### G IPANEL #### [facility] [address] [address] [address] Steven Simon WBC 8.4 103/ul Normal 4.0-11.0 [facility] Comment on above: Performed By: #### G IPANEL #### [facility] [address] [place] [address] Dr. Steven Simon ELECTROLYTESon 09-26-2021 Anion gap [Moles/Vol] 14.7 mmol/L Normal [facility] Comment on above: Performed By: #### E LEC, LIVER #### [facility] [address] [address] [address] Steven Simon Chloride [Moles/Vol] 99 mmol/L Normal 98-107 [facility] Comment on above: Performed By: #### E LEC, LIVER #### [facility] [address] [place] [address] Dr. Steven Simon CO2 [Moles/Vol] 25.2 mmol/L Normal 22.0-30.0 [facility] Comment on above: Performed By: #### E LEC, LIVER #### [facility] [address] [place] [address] Dr. Steven Simon Potassium [Moles/Vol] 3.9 mmol/L Normal 3.4-5.0 [facility] Comment on above: Performed By: #### E LEC, LIVER #### [facility] [address] [place] [address] Dr. Steven Simon Sodium [Moles/Vol] 135 mmol/L Critically low 137-145 [facility] Comment on above: Performed By: #### E LEC, LIVER #### [facility] [address] [place] [address] Dr. Steven Simon LIVER PROFILEon 09-26-2021 Albumin [Mass/Vol] 3.7 g/dL Normal 3.5-5.0 [facility] Comment on above: Performed By: #### E LEC, LIVER #### [facility] [address] [place] [address] Dr. Steven Simon Albumin/Globulin [Mass ratio] 1.0 {ratio} Normal [facility] Comment on above: Performed By: #### E LEC, LIVER #### [facility] [address] [address] [address] Steven Simon ALP [Catalytic activity/Vol] 56 U/L Normal 38-126 [facility] Comment on above: Performed By: #### E LEC, LIVER #### [facility] [address] [address] [address] Steven Simon ALT [Catalytic activity/Vol] 41 U/L Normal 9-52 [facility] Comment on above: Performed By: #### E LEC, LIVER #### [facility] [address] [address] [address] Steven Simon AST [Catalytic activity/Vol] 27 U/L Normal 14-36 [facility] Comment on above: Performed By: #### E LEC, LIVER #### [facility] [address] [place] [address] Dr. Steven Simon BILI, CONJUGATED 0.1 mg/dL Normal 0.0-0.3 [facility] Comment on above: Performed By: #### E LEC, LIVER #### [facility] [address] [address] [address] Steven Simon Bilirubin [Mass/Vol] 0.5 mg/dL Normal 0.2-1.3 [facility] Comment on above: Performed By: #### E LEC, LIVER #### [facility] [address] [address] [address] Steven Simon Globulin (S) [Mass/Vol] 3.6 g/dL Normal [facility] Comment on above: Performed By: #### E LEC, LIVER #### [facility] [address] [address] [address] Steven Simon Protein [Mass/Vol] 7.3 g/dL Normal 6.1-8.2 [facility] Comment on above: Performed By: #### E LEC, LIVER #### [facility] [address] [address] [address] Steven Simon MG MAMM SCREEN 3D PATRICIA CADon 09-14-2021 MG MAMM SCREEN 3D PATRICIA CAD Patient: KEITH BAUMSusanne Exam Date: 09/14/2021 : 1970 Gender:F Ordering : DR ALMA ROSA SMITH M.D. Admission #: [id number] Family : DR DESAIMaruice GALINDO . Order #: [id number] CLICK HERE TO VIEW EXAM RADIOLOGY REPORT PROCEDURE: MAMMOGRAM SCREENING 3D BILATERAL CAD COMPARISON: MG MAMM SCREEN PATRICIA W CAD, 04/08/2019. INDICATIONS: Screening mammography Calculator Name NCI Breast Cancer Risk Assessment Tool 5 Year Breast Cancer Risk 0.90% Lifetime Breast Cancer Risk 7.00% Personal Breast Cancer No Personal Ovarian Cancer No Treatments None Family Cancers None LOCATION: [facility] BREAST COMPOSITION: Scattered areas fibroglandular density. FINDINGS: [...] 09/14/2021 at 14:24 Normal [facility] Covid-19 PCR (CVDTB)on 07-26 SARS-CoV-2 (COVID-19) RNA TATIANA+probe Ql (Unsp spec) Not detected Normal NOT DETECTED [facility] Comment on above: Result Comment: When diagnostic [...] for this test is supported by the Die Equipment Operator of Health and Human Service's declaration that [...] By: #### C VDTB #### [facility] [address] [place] [address] Dr. Steven Simon ER URINE PROFILEon 1 Bilirubin Ql (U) Negative Normal NEGATIVE [facility] Comment on above: Performed By: #### E RUR #### [facility] [address] [place] [address] Dr. Steven Simon Clarity (U) CLEAR Normal CLEAR [facility] Comment on above: Performed By: #### E RUR #### [facility] [address] [place] [address] Dr. Steven Simon Color (U) YELLOW Normal YELLOW [facility] Comment on above: Performed By: #### E RUR #### [facility] [address] [place] [address] Dr. Steven BETHAHDell A micrscopic examination will be performed if indicated. Normal [facility] Comment on above: Performed By: #### E RUR #### [facility] [address] [place] [address] Dr. Steven Simon Glucose Ql (U) 500 mg/dl Abnormal NEGATIVE [facility] Comment on above: Performed By: #### E RUR #### [facility] [address] [place] [address] Dr. Steven Simon Hemoglobin Ql (U) Negative Normal NEGATIVE [facility] Comment on above: Performed By: #### E RUR #### [facility] [address] [place] [address] Dr. Steven Simon Ketones Ql (U) Negative Normal NEGATIVE [facility] Comment on above: Performed By: #### E RUR #### [facility] [address] [place] [address] Dr. Steven Simon LEUKOCYTES Negative Normal NEGATIVE [facility] Comment on above: Performed By: #### E RUR #### [facility] [address] [address] [address] Steven Simon Nitrite Ql (U) Negative Normal NEGATIVE [facility] Comment on above: Performed By: #### E RUR #### [facility] [address] [address] [address] Steven Simon pH (U) 7.5 [pH] Normal 5-9 [facility] Comment on above: Performed By: #### E RUR #### [facility] [address] [address] [address] Steven Simon SPEC GRAVITY 1.015 Normal 1.005-<=1.025 [facility] Comment on above: Performed By: #### E RUR #### [facility] [address] [place] [address] Dr. Steven Simon UA PROTEIN Negative Normal NEGATIVE/ TRACE [facility] Comment on above: Performed By: #### E RUR #### [facility] [address] [place] [address] Dr. Steven Simon UR MICRO IND NOT INDICATED Normal [facility] Comment on above: Performed By: #### E RUR #### [facility] [address] [place] [address] Dr. Steven Simon Urobilinogen Qn (U) 0.2 {Claritza'U}/dL Normal 0.2 - 1. 0 [facility] Comment on above: Performed By: #### E RUR #### [facility] [address] [place] [address] Dr. Steven Simon Encounters Encounter Date Encounter Type Care Provider Facility Start: 05-06-2024 ambulatory Isak Young acility:[facility] Start: 05-05-2024 End: 05-05-2024 ambulatory JULIA CHEN Not Available Start: 04-28-2024 End: 04-28-2024 ambulatory FERNANDO LOPEZ Not Available Start: 01-14-2024 End: 01-14-2024 ambulatory FERNANDO LOPEZ Not Available Start: 12-26-2023 End: 12-26-2023 ambulatory NICHOLE GALINDO Not Available Start: 12-25-2023 End: 12-25-2023 ambulatory JULIA M HEMMER Not Available Start: 12-21-2023 End: 12-21-2023 ambulatory JULIA Caldwell HEMMER Not Available Start: 10-30-2023 End: 10-30-2023 ambulatory JULIA Caldwell HEMMER Not Available Start: 10-29-2023 Chart abstracting Julia Adhikarim er PA Work Phone: [facility] Start: 09-03-2023 End: 09-03-2023 ambulatory JULIA Caldwell HEMMER Not Available Start: 08-22-2023 End: 08-22-2023 ambulatory JULIA Caldwell HEMMER Not Available Start: 05-09-2023 End: 05-10-2023 ambulatory Dax Block Facility:[facility] Start: 05-09-2023 End: 05-09-2023 Patient encounter procedure Dax Block [facility] Start: 08-11-2022 End: 08-12-[address] [...] Detail Performing Clinician Start: 07-26-2023 Mammography Julia Adhikarim er PA Work Phone: Start: 09-24-2011 History of hernia repair Dax Block Comment on above: ventral hernia x 4 Start: 09-24-2007 Cholecystectomy Dax Block Start: 09-24-2007 Open biopsy of liver Yola Block Start: 09-24-2007 Open biopsy of pancreas Dax Block Start: 09-24-1993 History of nasal sin us surgery Dax Block Start: 09-24-1990 section Serjio Block Excision of lumbar intervertebral disc Dax Block Plan of Treatment Date Care Activity Detail Author Start: 05-11-2026 Screening for malign ant neoplasm of colon [facility] Start: 11-22-2025 Screening for malign ant neoplasm of cervix [facility] Start: 07-26-2024 Screening for malign ant neoplasm of breast Mammogram [facility] Start: 04-16-2024 Medicare Annual Well ness (AWV) Medicare Annual Wellness (AWV) [facility] Start: 03-23-2024 Influenza vaccination Influenza Vacc ine (#1) [facility] Comment on above: Postponed from 05/25 (Patient Refused) Start: 10-31-2023 Hemoglobin A1c measurement Diabetes: Hemoglobin A1C [facility] Start: 10-30-2023 End: 10-30-2023 Patient encounter procedure 10/30/2023 10:00 AM EST Office Visit [facility] [address] [facility] [address] [place] [id number] Julia Chen PA [address] [facility] [address] [place] [address] [facility] Start: 1989 Screening for malign ant neoplasm of cervix Pap Smear [facility] Start: 1978 Glaucoma screening Diabetes: R etinopathy Screening [facility] Start: 1968 Screening for malign ant neoplasm of colon [facility] Immunizations Immunization Date Immunization Notes Care Provider [facility] 10-07-2019 pneumococcal conjuga te vaccine, 13 valent Julia FERRARO Work Phone: [facility] 09-23-2019 zoster vaccine recombinant K eve FERRARO Work Phone: [facility] 03-09-2010 pneumococcal polysaccharide vaccine, 23 valent Julia FERRARO Work Phone: [facility] Healthcare Payers Date Payer Category Payer Self-pay 2020 Medicaid MEDICAID [facility] [id number] 2020-Present [phone] [address] [place] [address] Medicaid [id number] 2009 Medicare MEDICARE MEDICAR E PART B [id number] 2009-[place] [place] [address] Medicare [id number] 2009 Medicare [id number] 1968 Unknown [id number] [id number]3 1968 Unknown [id number] 2.16.840.1.252631.3.579.2.593 1968 Unknown [id number] 2.16.840.1.303151.3.579.2.593 1968 Unknown [id number] 2.16.840.1.208216.3.579.2.593 1968 Unknown [id number] 2.16.840.1.556214.3.579.2.593 1968 Unknown [id number] 2.16.840.1.149634.3.579.2.593 1968 Unknown [id number] 2.16.840.1.224328.3.579.2.593 1968 Unknown [id number] 2.16.840.1.869332.3.579.2.593 1968 Unknown [id number] 2.16.840.1.032810.3.579.2.593 1968 Unknown [id number] 2.16.840.1.765194.3.579.2.593 1968 Unknown [id number] 2.16.840.1.113023.3.579.2.593 1968 Unknown [id number] 2.16.840.1.351456.3.579.2.727 1968 Unknown [id number] 2.16.840.1.852196.3.579.2.1259 1968 Unknown [id number] 2.16.840.1.410720.3.579.2.1259 1968 Unknown [id number] 2.16.840.1.995714.3.579.2.1259 1968 Unknown [id number] 2.16.840.1.263126.3.579.2.1259 1968 Unknown [id number] 2.16.840.1.458976.3.579.2.1259 1968 Unknown [id number] 2.16.840.1.805873.3.579.2.1259 1968 Unknown [id number] 2.16.840.1.382547.3.579.2.1259 1968 Unknown [id number] 2.16.840.1.830723.3.579.2.1259 1968 Unknown [id number] 2.16.840.1.989533.3.579.2.1259 1959 Medicaid [id number] 1961 Medicare [id number] Unknown [id number] 2.16.840.1.004492.3.579.2.531 Social History Date Type Detail Facility Start: 03-16-2020 Tobacco smoking status Heavy t obacco smoker (finding) [facility] Start: 04-23-2023 End: 09-03-2023 Sex Assigned At Female [facility] Start: 04-18-2023 Tobacco smoking stat us NHIS Smokes tobacco daily [facility] History of tobacco use Cigarette Smoker [facility] Start: 04-18-2023 Tobacco use and exposure Smokeless tobacco non-user [facility] Start: 09-03-2023 Alcohol intake Ex-drinker (finding) [facility] Start: 04-23-2023 End: 09-03-2023 History of Social function [facility] Start: 04-15-2023 Tobacco Comment 5 or less cigs/day [facility] Start: 1970 Sex Assigned At Not on file N [facility] Medical Equipment Procedure Code Equipment Code Equipment Original Text Equi pment Identifier Dates 1 each by Other route 1 (one) time each day. [id number] Evaluation + Plan note Note Date & Type Note Facility Evaluation + Plan note No data available for this section [facility] Hospital Discharge instructions Note Date & Type Note Facility Hospital Discharge instructions No data available for this section [facility] Progress note Note Date & Type Note Facility Progress note No data available for this section [facility] Summary Purpose Family History No Family History Records FoundNo Family History Records FoundNo Family History Records FoundNo Family History Records FoundNo Family History Records Found Advance Directives No Advanced Directives Records FoundNo Advanced Directives Records FoundNo Advanced Directives Records FoundNo Advanced Directives Records FoundNo Advanced Directives Records Found Additional Source Comments INFORMATION SOURCE (unrecogn ized section and content) DATE CREATED AUTHOR 11/16/2021 [facility] dical Specialist DATE CREATED AUTHOR AUTHOR'S ORGANIZ ATION 08/16/2022 [facility] pital DATE CREATED AUTHOR AUTHOR'S ORGANIZ ATION 06/06/2023 [facility] ical Center DATE CREATED AUTHOR AUTHOR'S ORGANIZ ATION 05/07/2024 [facility] dical Specialists EPIC DATE CREATED AUTHOR AUTHOR'S ORGANIZ ATION 05/07/2024 [facility] y[facility] Patient Care team informatio n (unrecognized section and content) Composition Roofer Relationship Specialty Start Date End Date Alma Rosa Smith MD [address] [facility] [address] [place] [address] PCP - General Family Medicine 04/16/23 Alma Rosa Smith MD [address] [place] [address] [address] [place] [address] PCP - ACO Reach 09/23/23 FOR RECORDS [...] BE BASED ON THE PRIMARY CLINICAL RECORDS. [email or web address] [facility]. provides no warranty or guarantee of the accuracy or completeness of information in this document.
--- NOTE | 2024-05-09 13:17 | MR_ITS ---
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 Images were obtained both before and after intravenous administration of Dotarem contrast. FINDINGS: LIVER: No enlargement, atrophy, abnormal density, or significant focal lesion. BILIARY: The gallbladder is absent PANCREAS: Identified in the head of the pancreas is an area of signal abnormality measuring 2.7 x 2.2 cm in axial image #16 and 3.6 cm in craniocaudal extent, coronal image 15. This lesion has lobular margins. This lesion does enhance measures between 1000 501,670 Hounsfield units on precontrast imaging and 2800 Hounsfield units on postcontrast imaging SPLEEN: No enlargement or focal lesion. KIDNEYS: No mass or obstruction. ADRENALS: No mass or enlargement. AORTA/VASCULAR: No aneurysm or dissection. RETROPERITONEUM: No mass or adenopathy. BOWEL/MESENTERY: No visible mass, obstruction, or bowel wall thickening. ABDOMINAL WALL: No mass or hernia. BONES: No bony lesion or fracture. LUNG BASES: No visible pleural disease. Lung bases not well assessed with MRI. OTHER: Negative. 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 Stability over time suggests a benign process however this lesion does enhance, the etiology is indeterminate. Electronically authenticated by: HUMPHREY LORA Date: 05/13/2024 07:20
== END 2024-05-09 13:07 | disposition home or self-care (01) ==
LOC: MRI 13:08
PROVIDERS: PCP Family Medicine; Visit Provider Physician Assistant
DX: D13.4 Benign neoplasm of liver (principal); D13.5 Benign neoplasm of extrahepatic bile ducts; Z87.19 Personal history of other diseases of the digestive system; D37.8 Neoplasm of uncertain behavior of other specified digestive organs; K86.2 Cyst of pancreas
CPT/HCPCS: 74183; A9575

== ENCOUNTER 2024-08-12 14:32 | Outpatient (OUT) | payer MEDICARE, MEDICAID, SELFPAY ==
--- NOTE | 2024-08-12 14:34 | MR_ITS ---
The [address] [address] Patient Name: KEITH WASHINGTON MRN: [id number] date: 1970 Sex: F Assigned Patient Location: MRI Current Patient Location: MRI Accession/Order Number: [id number] Exam Date: 08/12/2024 14:42 Report Date: 08/14/2024 11:52 At the request of: FERNANDO LOPEZ Procedure: MR cervical spine wo con EXAM: MR cervical spine wo con HISTORY: Hyperreflexia, left arm pain, Neck pain. COMPARISON: None. TECHNIQUE: Multiplanar and multisequence imaging of the cervical spine was performed without contrast. FINDINGS: There is straightening of the cervical lordosis. Motion artifact mildly degrades evaluation. There is no fracture or spondylolisthesis. The cervical vertebral heights are maintained. There is disc desiccation throughout the cervical spine. No acute abnormality is identified in the posterior fossa or at the craniocervical junction. No convincing cord signal abnormalities evident given motion artifact degrading evaluation on this study. C2-C3: There is mild to moderate left and mild right-sided facet arthropathy. There is no focal disc herniation. No central or foraminal stenosis is evident. C3-C4: There is a mild disc bulge and mild to moderate facet arthropathy without central or foraminal stenosis. C4-C5: There is a minimal disc bulge and uncovertebral spurring with mild to moderate facet arthropathy. There is no central or foraminal stenosis. C5-C6: There is a small central disc protrusion and mild uncovertebral spurring with mild to moderate facet arthropathy. There is no central or foraminal stenosis. C6-C7: No focal disc herniation is evident. There is no central or foraminal stenosis. MR/MR cervical spine wo con IMPRESSION: 1. Discogenic change and mild to moderate facet arthropathy in the cervical spine as described above. No central or foraminal stenosis is evident. 2. No fracture or spondylolysis Electronically authenticated by: MITCHELL KEARNEY Date: 08/14/2024 11:52
== END 2024-08-12 14:33 | disposition home or self-care (01) ==
LOC: MRI 14:32
PROVIDERS: PCP Family Medicine; Visit Provider Physician Assistant
DX: R29.2 Abnormal reflex (principal); M79.602 Pain in left arm; M54.2 Cervicalgia
CPT/HCPCS: 72141

== ENCOUNTER 2024-09-30 08:57 | Emergency (ER) | payer MEDICARE, MEDICAID, SELFPAY ==
[2024-09-30 09:02] VITALS: BP 139/60; PULSE 86; TEMP 36.7; O2SAT 99; BMI 36.3
--- NOTE | 2024-09-30 09:17 | XR_ITS ---
The [address] [id number] Patient Name: KEITH WASHINGTON MRN: [id number] date: 1970 Sex: F Assigned Patient Location: ER Current Patient Location: ER Accession/Order Number: [id number] Exam Date: 09/30/2024 09:20 Report Date: 09/30/2024 09:37 At the request of: TORSTEN KRISHNAMURTHY Procedure: XR chest 1V EXAM: XR chest 1V HISTORY: . cough . COMPARISON: 03/24/2024 TECHNIQUE: Single view of the chest FINDINGS: Heart and vascularity are unremarkable. Lungs are free of focal infiltrates. Grossly no acute bony abnormality is appreciated. XR/XR chest 1V IMPRESSION: No acute heart or lung disease identified. Electronically authenticated by: HUMPHREY ENNIS Date: 09/30/2024 09:37
--- NOTE | 2024-09-30 09:19 | ED.GENADUL1 ---
HPI HPI - General Adult General Chief complaint: Upper Respiratory Infection Stated complaint: FLU LIKE SYMPTOMS Time Seen by Provider: 09/30/24 08:59 Mode of arrival: walk-in History of Present Illness HPI narrative: Patient presenting to the emergency department for eval ration of not feeling well. 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 Patient states starting yesterday she fevers, chills, states she was having diffuse bodyaches, arthralgias, myalgias off, intermittent sputum, fever of 101. Patient states that she will frequently get bronchitis that turns into pneumonia so she was hoping to get swabbed to have a chest x-ray. Has no chest pain, shortness of breath, difficulty breathing. Related Data Home Medications ?Medication ?Instructions ?Recorded ?Confirmed atenolol 50 mg tablet 25 mg PO DAILY 03/24/24 03/24/24 empagliflozin 10 mg tablet 10 mg PO DAILY 03/24/24 03/24/24 (Jardiance) escitalopram oxalate 20 mg tablet 20 mg PO .qhs 03/24/24 03/24/24 levothyroxine 75 mcg tablet 75 mcg PO QAM 03/24/24 03/24/24 omeprazole 20 mg capsule,delayed 20 mg PO QAM reflux 03/24/24 03/24/24 release oxycodone-acetaminophen 5 mg-325 1 tab PO Q12H PRN pain 03/24/24 03/24/24 mg tablet potassium chloride 20 mEq 20 meq PO DAILY 03/24/24 03/24/24 tablet,extended release(part/cryst) (Matt-Con M) Previous Rx's ?Medication ?Instructions ?Recorded ondansetron 4 mg disintegrating 4 mg PO Q6H PRN nausea and 03/24/24 tablet vomiting #20 tabs Allergies Allergy/AdvReac Type Severity Reaction Status Date / Time cephalexin (From Keflex) Allergy Intermediate Rash Verified 03/24/24 08:50 moxifloxacin (From Avelox) Allergy Intermediate Abdominal Verified 03/24/24 08:50 Pain nitrofurantoin (From Allergy Intermediate Rash Verified 03/24/24 08:50 Macrobid) azithromycin Allergy Rash Verified 03/24/24 08:50 Opioid HPI Opioid Management Most Recent Opioid Data: Last Pain Scale 4 03/24/24 09:08 07/01/24 Review of Systems ROS Narrative Negative unless otherwise stated in the HPI PFSH PFSH Social History Little interest or pleasure in doing things: not at all Feeling down, depressed, or hopeless: not at all Exam Narrative Exam Narrative: General: NAD, AAOx3, no distress Eyes: PERRL, EOMI, lids/conjunctiva normal. HEENT: NCAT, mmm, TMs normal bilaterally. No lymphangitis/lymphedema, midline uvula, no exudates, normal tonsils without hypertrophy or exudates Neck: Supple, no LAD, negative Kernig/Brudzinski, non meningeal, no bruit Respiratory: respiratory effort normal, speaks in full sentences, no tripod position, no accessory muscle use. Lungs clear to auscultation without rhonchi, wheezes, rales Cardiac: Regular rate and rhythm, no edema, regular s1/s2, no m/g/r Constitutional Vital Signs, click to edit/add: Last Vital Signs Temp 98.0 F 09/30/24 09:02 Pulse 86 09/30/24 09:02 Resp 18 09/30/24 09:02 BP 139/60 09/30/24 09:02 Pulse Ox 99 09/30/24 09:02 Course Vital Signs Vital signs: Vital Signs Temperature 98.0 F 09/30/24 09:02 Pulse Rate 86 09/30/24 09:02 Respiratory Rate 18 09/30/24 09:02 Blood Pressure 139/60 09/30/24 09:02 Pulse Oximetry 99 09/30/24 09:02 Temperature 98.0 F 09/30/24 09:02 Pulse Rate 86 09/30/24 09:02 Respiratory Rate 18 09/30/24 09:02 Blood Pressure 139/60 09/30/24 09:02 Pulse Oximetry 99 09/30/24 09:[address] [facility] Narrative Medical decision making narrative: [facility] Patient with history as above presented with upper EXTR infection. History obtained from patient. Patient was nontoxic, stable. Ambulatory. Exam as above. Independently reviewed imaging. Reviewed external records. Differential diagnosis considered. Overall presentation is consistent with upper respiratory infection Pt who presented to the ER today for URI symptoms. Patient on exam was well appearing and non toxic appearing. Vitals were reviewed. Patient has no symptoms of otitis media, pneumonia, bacterial pharyngitis or other serious bacterial illness. Respiratory status is unremarkable. At this point in time, patient likely has viral syndrome with no indications for antibiotics. I have recommended fluids and motrin for symptomatic control. Close follow up with PCP. Advanced guidance has been given. Vss, pex is benign at this time. Pt to fu with pcp 1-2 days for reeval, rter should sx worsen, persist or become worrysome in any way. Pt expressed understanding and agreement with plan of care at this time. Will fu as planned. Pt stable for discharge. Lab Data Labs: Lab Results 09/30/24 Range/Units 09:08 Influenza Type A Ag Negative Influenza Type B Ag Negative SARS-CoV-2 Ag (CV2AG) Negative (NEGATIVE) Discharge Plan Discharge Chief Complaint: Upper Respiratory Infection Clinical Impression: URI (upper respiratory infection) Patient Disposition: Home, Self-Care Time of Disposition Decision: 10:05 Prescriptions / Home Meds: No Action atenolol 50 mg tablet 25 mg PO DAILY Jardiance 10 mg tablet 10 mg PO DAILY escitalopram oxalate 20 mg tablet 20 mg PO .qhs levothyroxine 75 mcg tablet 75 mcg PO QAM omeprazole 20 mg capsule,delayed release(DR/EC) 20 mg PO QAM Rx Instructions: before meal oxycodone-acetaminophen 5-325 mg tablet 1 tab PO Q12H PRN (Reason: pain) potassium chloride [Klor-Con M20] 20 mEq tablet,ER particles/crystals 20 meq PO DAILY ondansetron 4 mg tablet,disintegrating 4 mg PO Q6H PRN (Reason: nausea and vomiting) Qty: 20 0RF Print Language: Nauruan Instructions: Upper Respiratory Infection (DC) Additional Instructions: Follow-up with your PCP in the next 1 to 2 days. Return to the emergency department should symptoms worsen or become worrisome in any way Referrals: ERIK SMITH [Primary Care Provider] - 1 week
[2024-09-30 09:37] LABS: Influenza Virus A Antigen Negative; Influenza Virus B Antigen Negative; Internal Control Within Normal Limits; SARS-CoV-2 Ag NEGATIVE (NEGATIVE)
[2024-09-30 10:09] VITALS: BP 128/88; PULSE 88; O2SAT 98
== END 2024-09-30 10:12 | disposition home or self-care (01) ==
PROVIDERS: Emergency Provider Emergency Medicine; PCP Family Medicine
DX: J06.9 Acute upper respiratory infection, unspecified (principal); Z20.822 Contact with and (suspected) exposure to COVID-19
CPT/HCPCS: 71045; 87804; 87811; 99284

== ENCOUNTER 2024-12-16 12:44 | Outpatient (OUT) | payer MEDICARE, MEDICAID, SELFPAY ==
--- NOTE | 2024-12-16 12:53 | ECG_ITS ---
The [facility] Test Date: 2024-12-16 Pat Name: KEITH WASHINGTON Department: Room: - Gender: Female Calcim[place]: : 1970 Requested By: NICHOLE GALINDO Order Number: [id number] Reading MD: EDWARDO VILLALOBOS M.D. Measurements Intervals [place] Rate: 52 P: 60 ID: [id number] QRS: 2 QRSD: 89 T: 69 QT: 481 QTc: 451 Interpretive Statements SINUS BRADYCARDIA otherwise normal ECG Compared to ECG 03/12/2021 11:12:18 No significant change Electronically Signed On 12-16-2024 17:44:16 EDT by EDWARDO VILLALOBOS M.D.
--- NOTE | 2024-12-16 12:53 | XR_ITS ---
[address] [address] Patient Name: KEITH WASHINGTON MRN: [id number] date: 1970 Sex: F Assigned Patient Location: [facility] Current Patient Location: [facility] Accession/Order Number: [id number] Exam Date: 12/16/2024 14:12 Report Date: 12/16/2024 14:12 At the request of: NICHOLE GALINDO DO Procedure: XR chest 2V Chest 2 views CLINICAL HISTORY: Preop exam COMPARISON: Chest 09/30/2024 FINDINGS: Heart normal size. Lungs are clear. No free air. XR/XR chest 2V IMPRESSION: NO ACUTE CARDIOPULMONARY ABNORMALITY. Impression dictated by: Darren Wahl Jr., D.OSusanne12/16/2024 2:12 PM Dictation Location: [facility] Electronically authenticated by: [id number] Y Date: 12/16/2024 14:12
--- OUTSIDE RECORDS SUMMARY | 2024-12-16 13:07 | XMS_ITS | CCD ---
Author Organization [facility] Care Team Providers Care Cardiologist Name Role Phone GUIDO, DR HUMPHREY Butler Consulting Unavailable SARAH, DR VALENCIA Primary Care Unavailable ALLI, DR VARELA Attending Unavailable ALLI, DR VARELA Admitting Unavailable ALLI, DR VARELA Consulting Unavailable RAMONE OKEEFE Consulting Unavailable RAMONE OKEEFE Attending Unavailable RAMONE OKEEFE Admitting Unavailable SARAH, DR VALENCIA Primary Care Unavailable SARAH, DR VALENCIA Consulting Unavailable SARAH, DR VALENCIA Primary Care Unavailable SARAH, DR VALENCIA Attending Unavailable SARAH, DR VALENCIA Admitting Unavailable WILLIAM AMAN Consulting Unavailable SARAH, DR VALENCIA Consulting Unavailable ALLI, DR VARELA Primary Care Unavailable SARAH, DR VALENCIA Attending Unavailable SARAH, DR VALENCIA Admitting Unavailable Zieber, DR Brantley Consulting Unavailable ALLI, DR VARELA Consulting Unavailable SARAH, DR VALENCIA Primary Care Unavailable ALLI, DR VARELA Attending Unavailable ALLI, DR VARELA Admitting Unavailable ARIAS, JAYNE Consulting Unavailable SARAH, DR VALENCIA Primary Care Unavailable ARIAS, JAYNE Attending Unavailable ARIAS, JAYNE Admitting Unavailable Zieber, DR Brantley Consulting Unavailable SARAH, DR VALENCIA Primary Care Unavailable ARIAS, JAYNE Attending Unavailable ARIAS, JAYNE Admitting Unavailable ARIAS, JAYNE Consulting Unavailable SARAH, DR VALENCIA Consulting Unavailable SARAH, DR VALENCIA Primary Care Unavailable SARAH, DR VALENCIA Attending Unavailable SARAH, DR VALENCIA Admitting Unavailable Humphrey Ennis Consulting Unavailable SARAH, DR VALENCIA Primary Care Unavailable ARIAS, JAYNE Attending Unavailable ARIAS, JAYNE Admitting Unavailable ARIAS, JAYNE Consulting Unavailable PAY, DR RIZO Consulting Unavailable BLANCHE GALINDO Attending Unavailable BLANCHE GALINDO Admitting Unavailable SARAH, DR VALENCIA Primary Care Unavailable BLANCHE GALINDO Consulting Unavailable GUIDO, DR HUMPHREY Butler Consulting Unavailable RAMONE OKEEFE Attending Unavailable RAMONE OKEEFE Admitting Unavailable DR ERIK SMITH Primary Care Unavailable RAMONE OKEEFE Consulting Unavailable ERIK SMITH Primary Care Physician Dax Block Referring Unavailable Dax Block Attending Unavailable Dax Block Admitting Unavailable Erik Smith MD Primary Care Provider Erik Smith MD Unavailable ECLIO BROWN Attending Unavailable ERIK SMITH Referring Unavailable Sunday HEARING AID TECHNICIAN, Vidya Unavailable Isak Castillo Attending Unavailab Isak Olivera Admitting Unavailab Erik Trejo Primary Care Unavailable Coco Paula RN Unavailable Unavailable Primary Care Provider Unavailhernan Paula RN, Coco Unavailable [phone] [place] HEARING AID TECHNICIAN, Lulú Unavailable Unavailable JAYNE BIANCHI Attending Unavailable JAYNE BIANCHI Attending Unavailable AMARILIS ALVARENGA Attending Unavailable AMARILIS ALVARENGA Attending Unavailable ALLI, WILL Attending Unavailable AMARILIS ALVARENGA Attending Unavailable HEMMER, JULIA Caldwell Attending Unavailable HEMMER, JULIA Caldwell Attending Unavailable ALLI, WILL Attending Unavailable MICHELLE CUENCA Attending Unavailable AMARILIS ALVARENGA Attending Unavailable AMARILIS ALVARENGA M Attending Unavailable ALLIGISELLEY Referring Unavailable ALLIWILL ABDI Attending Unavailable MIHCELLE CUENCA Attending Unavailable HEMJULIA HARPER Attending Unavailable SARAHERIK Hobbs Attending Unavailable AMARILIS ALVARENGA Attending Unavailable MICHELLE CUENCA Attending Unavailable BENEDIMADISON VILLAGRAN Attending Unavailable MICHELLE CUENCA Attending Unavailable HEMMERJULIA Attending Unavailable Allergies Allergy Classification Reported Allergen(s) Allergy Type Date of Onset Reaction(s) Facility (2 sources) Azithromycin; Translations: [Zithromax] Drug Allergy [facility] Repository (1 source) Cephalexin Drug Allergy 03-12-[address] [facility] Repository (1 source) Corticosteroids Drug allergy (disorder) [facility] Repository (3 sources) Morphine; Translations: [morphine] Drug Allergy 11-22-[address] [facility] Repository (2 sources) moxifloxacin; Translations: [Avelox] Drug Allergy [facility] Repository (2 sources) Nitrofurantoin; Translations: [Macrobid] Drug Allergy [facility] Repository (20 sources) Azithromycin; Translations: [azithromycin] Drug Allergy 11-22-19 16 Eruption of skin (disorder), Unknown, Rash, Other (See Comments) [facility] (20 sources) Morphine; Translations: [morphine] Drug Allergy 11-22-19 16 Vomiting (disorder), Unknown, Other (See Comments), Vomiting [facility] (20 sources) moxifloxacin; Translations: [moxifloxacin] Drug Allergy 11-22-19 16 Eruption of skin (disorder), Rash, Unknown, Other (See Comments) [facility] [place] (2 sources) NITROFURANTOIN, MACROCRYSTALS / Nitrofurantoin, Monohydrate; Translations: [nitrofurantoin] Drug Allergy 11-22-19 16 Skin irritation (disorder), Rash, Other (See Comments) [facility] (20 sources) Cephalexin; Translations: [CEPHALEXIN] Drug Allergy 04-15-20 23 Rash [facility] Healthcare (20 sources) Corticosteroids and derivatives Drug Allergy 11-22-19 16 Unknown [facility] Healthcare (20 sources) Nitrofurantoin; Translations: [NITROFURANTOIN] Drug Allergy 11-22-19 16 Unknown, Other (See Comments) [facility] Healthcare (20 sources) Nitrofurantoin Drug Allergy 04-15-20 23 Unknown [facility] Healthcare (2 sources) Corticosteroids; Translations: [CORTICOSTEROIDS (GLUCOCORTICOIDS)] Propensity to adverse reactions to drug (disorder) 11-22-19 16 Other (See Comments) [facility] Repository (1 source) NITROFURANTOIN MONOHYD/M-CRYST; Translations: [NITROFURANTOIN MONOHYD/M-CRYST] Propensity to adverse reactions to drug (disorder) 11-22-19 16 [facility] Repository Medications Current Medications Medication Drug Class(es) Dates Sig (Normalized) Sig (Original) acetaminophen 325 mg / oxyCODONE hydrochloride 5 mg oral tablet (20 sources) Opioid Agonist Start: 12-11-2024 End: 01-10-2025 take 1 tablet by mouth once oxyCODONE-acetamin ophen (Percocet) 5-325 MG tablet Indications: Chronic low back pain, unspecified back pain laterality, unspecified whether sciatica present Take 1 tablet by mouth every 12 (twelve) hours PRN due now 60 tablet 12/11/2024 01/10/2025 Active Start: 08-26-2024 End: 12-09-2024 take 1 tablet by mouth once oxyCODONE-acetaminophen (Percocet) 5-325 MG tablet Indications: Chronic low back pain, unspecified back pain laterality, unspecified whether sciatica present Take 1 tablet by mouth every 12 (twelve) hours PRN due now 60 tablet 11/06/2024 12/09/2024 Discontinued (Reorder) Start: 06-04-2024 take 1 tablet by clif th once oxyCODONE-acetaminophen (Percocet) 5-325 MG tablet Indications: Chronic low back pain, unspecified back pain laterality, unspecified whether sciatica present Take 1 tablet by mouth every 12 (twelve) hours PRN 60 tablet 06/04/2024 Active Start: 04-28-2024 End: 09-25-2024 take 1 tablet by mouth once oxyCODONE-acetaminophen (Percocet) 5-325 MG tablet Indications: Chronic low back pain, unspecified back pain laterality, unspecified whether sciatica present Take 1 tablet by mouth every 12 (twelve) hours PRN 60 tablet 08/26/2024 09/25/2024 Active Start: 03-15-2020 Percocet 7.5/3 25 1 tab(s), Oral, BID Pain 1-5, Refill(s) 0 Start Date: 03/15/20 Status: Ordered take 1 tablet by clif th every twelve hours oxyCODONE-acetaminophen (Percocet) 5-325 MG tablet Take 1 tablet by mouth every 12 (twelve) hours. PRN 0 Active [id number] 200 actuat albuterol 0.09 mg/actuat metered dose inhaler (20 sources) beta2-Adrenergic Agonist Start: 10-12-2022 take 1 puff(s) by inhalation every four hours for wheezing Ventolin HFA 108 (90 Base) MCG/ACT inhaler Inhale 1 puff every 4 (four) hours if needed for wheezing or shortness of breath. 10/12/2022 Active albuterol 0.833 mg/ml / ipratropium bromide 0.167 mg/ml inhalation solution (20 sources) Anticholinergic, beta2-Adrenergic Agonist Start: 10-12-2022 ipratropium-albut mike (Duo-Neb) 0.5-2.5 mg/3 mL nebulizer solution Take 3 mL by nebulization every 6 (six) hours. PRN 10/12/2022 Active Start: 03-15-2020 albuterol-ipra tropium See Instructions, Refill(s) 0, 2 inhalations 6 times per day Start Date: 03/15/20 Status: Ordered atenolol 50 mg oral tablet (20 sources) beta-Adrenergic Britt Start: 12-02-2024 take 1 tablet by mouth once daily atenolol (Tenormin) 50 MG tablet Indications: Essential hypertension (CMS/HCC) TAKE 1 TABLET BY MOUTH EVERY DAY 100 tablet 3 12/02/2024 Active Start: 11-15-2023 take 1 tablet by clif th once daily atenolol (Tenormin) 50 MG tablet Indications: Essential hypertension (CMS/HCC) TAKE 1 TABLET BY MOUTH EVERY DAY 100 tablet 3 11/15/2023 Active Start: 03-15-2020 take 1 tablet by clif th once daily atenolol 50 mg Tab 50 mg = 1 tab(s), Oral, Daily, Refills(s) 0 Start Date: 03/15/20 Status: Ordered azithromycin 250 mg oral tablet (2 sources) Macrolide Antimicrobial Start: 10-15-2024 End: 10-20-2024 take 2 tablets by mouth once daily, then take 1 tablet by mouth once daily azithromycin (Zithromax) 250 MG tablet Indications: Bronchitis Take 2 tablets (500 mg) by mouth Daily for 1 day, THEN 1 tablet (250 mg) Daily for 4 days. 6 tablet 10/15/2024 10/20/2024 Active clonazePAM 1 mg oral tablet (20 sources) Benzodiazepine Start: 03-15-2020 take 1 tablet by mouth three times daily Klonopin 1 mg Tab 1 mg = 1 tab(s), Oral, TID, Refills(s) 0 Start Date: 03/15/20 Status: Ordered take 3 tablets by mouth in the m orning clonazePAM (KlonoPIN) 1 mg tablet Take 3 tablets (3 mg total) by mouth in the morning. Active docusate sodium 100 mg oral capsule (20 sources) Docusate Sodium (DSS) 100 MG capsule Take 100 mg by mouth every 12 (twelve) hours if needed. Active empagliflozin 10 mg oral tablet (20 sources) Sodium-Glucose Cotransporter 2 Inhibitor Start: 10-27-2024 Jardiance 10 MG Indications: Type 2 diabetes mellitus with stage 2 chronic kidney disease, without long-term current use of insulin ([facility]) TAKE 1 TABLET BY MOUTH EVERY DAY 100 tablet 3 10/27/2024 Active Start: 11-15-2023 empagliflozin (Jardiance) 10 MG Indications: Type 2 diabetes mellitus with stage 2 chronic kidney disease, without long-term current use of insulin ([facility]) TAKE 1 TABLET BY MOUTH EVERY DAY FOR 90 DAYS 100 tablet 3 11/15/2023 Active escitalopram 20 mg oral tablet (20 sources) Serotonin Reuptake Inhibitor Start: 03-15-2020 take 1 tablet by mouth once daily escitalopram (Lexapro) 20 MG tablet Take 1 tablet by mouth 1 (one) time each day. 03/21/2023 Active estradiol 0.1 mg/ml vaginal cream (4 sources) Estrogen Start: 11-10-2024 End: 12-10-2024 estradiol (Estrace) 0.1 MG/GM vaginal cream Indications: Menopausal state Insert 2 g into the vagina Daily Apply 1/2 APPLICATOR daily for 2 weeks, then twice weekly thereafter for maintenance. 42.5 g 3 11/10/2024 12/10/2024 Active fluticasone propionate 0.05 mg/actuat metered dose nasal spray (20 sources) Corticosteroid fluticasone (Flonase) 50 MCG/ACT nasal spray 1 spray 1 (one) time each day at the same time PRN Active fluticasone 0.05 mg/inh Nasal [place] (1 source) Start: 03-15-2020 fluticasone 0.05 mg/inh Nasal [place] 1 spray(s), Nasal, BID, Refill(s) 0 Start Date: 03/15/20 Status: Ordered ibuprofen 800 mg oral tablet (20 sources) Nonsteroidal Anti-inflammatory Drug Start: 06-06-2023 ibuprofen 800 MG tablet PRN 06/06/2023 Active Lactobacillus-Inuli n (CULTURELLE DIGESTIVE DAILY PO) (20 sources) take 1 tablet by mouth once daily Lactobacillus-Inuli n (CULTURELLE DIGESTIVE DAILY PO) Take 1 tablet by mouth 1 (one) time each day Active levothyroxine sodium 0.075 mg oral tablet (20 sources) l-Thyroxine Start: 01-30-2024 take 1 tablet by mouth once daily in the morning levothyroxine (Synthroid, Levoxyl) 75 MCG tablet Indications: Acquired hypothyroidism (CMS/HCC) TAKE 1 TABLET BY MOUTH ONCE EVERY MORNING ON AN EMPTY STOMACH 100 tablet 3 01/30/2024 Active Start: 03-15-2020 take 1 tablet by clif th once daily Synthroid 75 mcg (0.075 mg) Tab 75 microgram = 1 tab(s), Oral, Daily, Refills(s) 0 Start Date: 03/15/20 Status: Ordered meclizine hydrochloride 25 mg oral tablet (20 sources) Antiemetic Start: 09-09-2024 take 1 tablet by mouth once daily as needed for nausea meclizine (Antivert) 25 MG tablet Indications: Meniere's disease of both ears Take 1 tablet (25 mg) by mouth Daily as needed for nausea 30 tablet 2 09/09/2024 Active Start: 06-19-2024 take 1 tablet by clif th once daily as needed for nausea meclizine (Antivert) 25 MG tablet Indications: Meniere's disease of both ears Take 1 tablet (25 mg) by mouth Daily as needed for nausea 30 tablet 2 06/19/2024 Active Start: 03-15-2020 take 1 tablet by clif th three times daily Antivert 25 mg Tab 25 mg = 1 tab(s), Oral, TID, Refills(s) 0 Start Date: 03/15/20 Status: Ordered take 1 tablet by clif th every twenty-four hours as needed for nausea meclizine (Antivert) 25 MG tablet Take 1 tablet by mouth Daily as needed for nausea. Active meloxicam 15 mg oral tablet (20 sources) Nonsteroidal Anti-inflammatory Drug Start: 03-15-2020 take 1 tablet by mouth once daily as needed for pain Mobic 15 mg Tab 15 mg = 1 tab(s), Oral, Daily, PRN Pain, Refills(s) 0 Start Date: 03/15/20 Status: Ordered MOUNJARO 2.5 mg/0.5 mL pen injector (1 source) inject 0.5 mL by subcutaneous injection every week MOUNJARO 2.5 mg/0.5 mL pen injector INJECT 0.5ML SUBCUTANEOUSLY ONCE A WEEK Active Multiple Vitamin (multivitamin) tablet (20 sources) take 1 tablet by mouth once daily Multiple Vitamin (multivitamin) tablet Take 1 tablet by mouth Daily Active Multivitamin, Therapeutic w/ Minerals (1 source) Start: 03-16-2020 take 1 tablet by mouth once daily Multivitamin, Therapeutic w/ Minerals 1 tab(s), Oral, Daily, Refill(s) 0 Start Date: 03/16/20 Status: Ordered omeprazole 20 mg delayed release oral capsule (20 sources) Proton Pump Inhibitor Start: 03-15-2020 take 1 capsule by mouth before mealtime omeprazole (PriLOSEC) [address] capsule Indications: Gastroesophageal reflux disease without esophagitis Take 1 capsule (20 mg) by mouth in the morning. Take before meals. 100 capsule 3 10/30/2023 Active ondansetron 4 mg oral tablet (20 sources) Serotonin-3 Receptor Antagonist Start: 10-30-2023 take 1 tablet by mouth once ondansetron (Zofran) 4 MG tablet Indications: Nausea Take 1 tablet (4 mg) by mouth every 12 (twelve) hours if needed for nausea 20 tablet 2 10/30/2023 Active microencapsulated potassium chloride 20 meq extended release oral tablet (20 sources) Start: 12-08-2024 take 1 tablet by mouth once daily potassium chloride CR (Klor-Con M20) 20 MEQ ER tablet Indications: Hypokalemia TAKE 1 TABLET BY MOUTH EVERY DAY 90 tablet 4 12/08/2024 Active Start: 11-15-2023 take 1 tablet by clif th once daily KLOR-CON 20 MEQ ER tablet Indications: Hypokalemia TAKE 1 TABLET BY MOUTH EVERY DAY 100 tablet 3 11/15/2023 Active Start: 03-15-2020 Klor-Con M20 2 0 mEq, Oral, Daily, Refills(s) 0 Start Date: 03/15/20 Status: Ordered predniSONE 20 mg oral tablet (2 sources) Start: 10-15-2024 End: 10-20-2024 take 1 tablet by mouth once daily predniSONE (Deltasone) 20 MG tablet Indications: Bronchitis Take 1 tablet (20 mg) by mouth Daily for 5 days 5 tablet 10/15/2024 10/20/2024 Active Red Yeast Rice Extract (RED YEAST RICE PO) (20 sources) take 1 tablet by mouth once daily Red Yeast Rice Extract (RED YEAST RICE PO) Take 1 tablet by mouth Daily Active SITagliptin 100 mg oral tablet (1 source) Dipeptidyl Peptidase 4 Inhibitor Start: 03-15-2020 take 1 tablet by mouth once daily Januvia 100 mg Tab 100 mg = 1 tab(s), Oral, Daily Start Date: 03/15/20 Status: Ordered Tirzepatide (Mounjaro) 2.5 MG/0.5ML solution pen-injector (5 sources) Start: 04-21-2024 End: 06-04-2024 Tirzepatide (Mounjaro) 2.5 MG/0.5ML solution pen-injector Indications: Type 2 diabetes mellitus with stage 2 chronic kidney disease, without long-term current use of insulin (CMS/HCC) Inject 0.5 mL under the skin 1 (one) time per week 2 mL 2 04/21/2024 06/04/2024 Discontinued (Dose adjustment) Start: 04-21-2024 Tirzepatide (M ounjaro) 2.5 MG/0.5ML solution pen-injector Indications: Type 2 diabetes mellitus with stage 2 chronic kidney disease, without long-term current use of insulin (CMS/HCC) Inject 0.5 mL under the skin 1 (one) time per week 2 mL 2 04/21/2024 Active Tirzepatide (Mounjaro) 5 MG/0.5ML solution pen-injector (1 source) Start: 09-21-2023 Tirzepatide (Mounjaro) 5 MG/0.5ML solution pen-injector Indications: Type 2 diabetes mellitus with stage 2 chronic kidney disease, without long-term current use of insulin (CMS/HCC) INJECT 5 MG UNDER THE SKIN ONE TIME PER WEEK 2 mL 2 09/21/2023 Active Tirzepatide 5 MG/0.5ML solution pen-injector (20 sources) Start: 06-04-2024 Tirzepatide 5 MG/0.5ML solution pen-injector Indications: Type 2 diabetes mellitus with stage 2 chronic kidney disease, without long-term current use of insulin (CMS/HCC) Inject 5 mg under the skin 1 (one) time per week 2 mL 2 06/04/2024 Active Tirzepatide 5 MG/0.5ML solution pen-injector (1 source) Start: 06-04-2024 Tirzepatide 5 MG/0.5ML solution pen-injector Indications: Type 2 diabetes mellitus with stage 2 chronic kidney disease, without long-term current use of insulin (CMS/HCC) Inject 5 mg under the skin 1 (one) time per week 2 mL 2 06/04/2024 Active tiZANidine 4 mg oral tablet (20 sources) Central alpha-2 Adrenergic Agonist Start: 03-25-2023 take 1 tablet by mouth every eight hours as needed tiZANidine (Zanaflex) 4 MG tablet Take 1 tablet by mouth every 8 (eight) hours if needed for muscle spasms. 03/25/2023 Active Start: 03-15-2020 take 1 tablet by clif th twice daily as needed for muscle spasms Zanaflex 4 mg Tab 4 mg = 1 tab(s), Oral, BID, PRN Spasm, Refills(s) 0 Start Date: 03/15/20 Status: Ordered 30 actuat umeclidinium 0.0625 mg/actuat / vilanterol 0.025 mg/actuat dry powder inhaler (20 sources) Anticholinergic, beta2-Adrenergic Agonist Start: 10-12-2022 End: 09-04-2024 take 1 puff(s) by inhalation once daily Umeclidinium-Vilanterol (Anoro Ellipta) 62.5-25 MCG/ACT aerosol powder Indications: Chronic bronchitis, unspecified chronic bronchitis type (CMS/HCC) Inhale 1 puff 1 (one) time each day at the same time 1 each 5 09/04/2024 Active Problems Active Problems Problem Classification Problem Date Documented Da te Episodic/Chronic Anxiety disorders (20 sources) Anxiety disorder, unspecified; Translations: [Anxiety] Onset: 02-28-2008 Resolved: 09-04-2024 03-15-2020 Chronic Asthma (20 sources) Uncomplicated moderate persistent asthma; Translations: [Moderate persistent asthma, uncomplicated] Onset: 02-28-2008 Resolved: 04-16-2023 04-16-2023 Chronic Chronic kidney disease (20 sources) Chronic kidney disease stage 3A ; Translations: [Stage 3a chronic kidney disease (HCC)] Onset: 03-31-2023 Resolved: 09-04-2024 03-31-2023 Chronic Chronic obstructive pulmonary disease and bronchiectasis (20 sources) Chronic obstructive pulmonary disease, unspecified; Translations: [Chronic obstructive lung disease] Onset: 02-14-2022 03-15-2020 Chronic Chronic obstructive pulmonary disease and bronchiectasis (4 sources) Bronchitis; Translations: [Bronchitis, not specified as acute or chronic] 10-15-2024 Episodic Conditions associated with dizziness or vertigo (20 sources) Meniere's disease; Translations: [Meniere's disease, unspecified ear] Onset: 04-15-2023 04-15-2023 Chronic Delirium, dementia, and amnestic and other cognitive disorders (20 sources) Postconcussion syndrome; Translations: [Postconcussional syndrome] Onset: 04-26-2024 04-26-2024 Chronic Diabetes mellitus with complications (20 sources) Type 2 diabetes mellitus; Translations: [Type 2 diabetes mellitus with diabetic chronic kidney disease] Onset: 10-18-2017 Resolved: 04-16-2023 03-31-2023 Chronic Disorders of lipid metabolism (20 sources) Pure hypercholesterolemia ; Translations: [Pure hypercholesterolemia , unspecified] Onset: 03-31-2023 03-31-2023 Chronic Esophageal disorders (20 sources) Gastro-esophageal reflux disease without esophagitis; Translations: [Gastroesophageal reflux disease] Onset: 04-14-2022 03-15-2020 Chronic Essential hypertension (20 sources) Essential (primary) hypertension; Translations: [Hypertensive disorder] Onset: 08-22-2021 03-15-2020 Chronic Menopausal disorders (2 sources) Menopausal syndrome; Translations: [Menopausal and female climacteric states] 11-10-2024 Chronic Menstrual disorders (4 sources) Excessive and frequent menstruation with regular cycle; Translations: [EXCESS FREQ MENSTRUATION W/REG CYCL] Onset: 07-22-2022 Chronic Mood disorders (20 sources) Major depressive disorder, single episode, unspecified; Translations: [Depressive disorder] Onset: 11-22-2015 Resolved: 09-04-2024 03-15-2020 Chronic Other aftercare (6 sources) Patient encounter status; Translations: [Other termite exterminator (current) drug therapy] 07-21-2024 Episodic Other aftercare (2 sources) Surgical follow-up; Translations: [Encounter for surgical aftercare following surgery on the sense organs] 11-03-2024 Episodic Other connective tissue disease (7 sources) Pain in left arm; Translations: [Pain in left arm] 07-21-2024 Episodic Other ear and sense organ disorders (20 sources) Sensorineural hearing loss, bilateral; Translations: [Sensorineural hearing loss, bilateral] Onset: 03-31-2023 03-31-2023 Chronic Other ear and sense organ disorders (20 sources) Chronic non-infective otitis externa; Translations: [Other otitis externa, bilateral] Onset: 04-15-2023 04-15-2023 Chronic Other endocrine disorders (20 sources) Drug-induced adrenocortical insufficiency; Translations: [Drug-induced adrenocortical insufficiency] Onset: 04-15-2023 04-15-2023 Chronic Other eye disorders (2 sources) Mechanical ptosis of left eyelid; Translations: [Mechanical ptosis] 07-07-2024 Episodic Other female genital disorders (20 sources) Abnormal uterine bleeding; Translations: [Other specified abnormal uterine and vaginal bleeding] Onset: 04-15-2023 04-15-2023 Chronic Other female genital disorders (7 sources) Postcoital bleeding; Translations: [Postcoital and contact bleeding] Onset: 11-10-2024 11-10-2024 Chronic Other gastrointestinal disorders (1 source) Irritable bowel syndrome without diarrhea; Translations: [IRRITABLE BOWEL SYND W/O DIARRHEA] Onset: 02-14-2022 Chronic Other gastrointestinal disorders (20 sources) Irritable bowel syndrome; Translations: [Irritable bowel syndrome without diarrhea] Onset: 04-07-2008 03-15-2020 Chronic Other inflammatory condition of skin (20 sources) Rosacea; Translations: [Other rosacea] Onset: 04-15-2023 04-15-2023 Chronic Other nervous system disorders (20 sources) Bilateral carpal tunnel syndrome; Translations: [Carpal tunnel syndrome, bilateral upper limbs] Onset: 04-24-2023 04-24-2023 Chronic Other nervous system disorders (20 sources) Median neuropathy; Translations: [Other lesions of median nerve, unspecified upper limb] Onset: 04-26-2024 04-26-2024 Chronic Other nervous system disorders (4 sources) Hyperreflexia; Translations: [Abnormal reflex] 07-21-2024 Episodic Other nutritional; endocrine; and metabolic disorders (20 sources) Morbid obesity; Translations: [Morbid (severe) obesity due to excess calories] Onset: 04-15-2023 04-15-2023 Chronic Other nutritional; endocrine; and metabolic disorders (2 sources) Obesity caused by energy imbalance; Translations: [Morbid (severe) obesity due to excess calories] 10-15-2024 Chronic Other nutritional; endocrine; and metabolic disorders (2 sources) Body mass index 30+ - obesity; Translations: [Body mass index (BMI) 36.0-36.9, adult] 10-15-2024 Chronic Other upper respiratory infections (20 sources) Chronic pansinusitis; Translations: [Chronic pansinusitis] Onset: 03-21-2019 Resolved: 04-16-2023 04-16-2023 Chronic Residual codes; unclassified (1 source) Pain, unspecified; Translations: [Pain, unspecified] Onset: 06-02-2024 Episodic Spondylosis; intervertebral disc disorders; other back problems (20 sources) Degeneration of lumbar intervertebral disc; Translations: [Degenerative disc disease, lumbar] Onset: 04-26-2024 04-26-2024 Chronic Spondylosis; intervertebral disc disorders; other back problems (20 sources) Low back pain; Translations: [Low back pain] Onset: 02-28-2008 Resolved: 09-04-2024 04-16-2023 Episodic Substance-related disorders (20 sources) Nicotine dependence, cigarettes, uncomplicated; Translations: [Smoker] Onset: 08-22-2021 03-31-2023 Chronic Thyroid disorders (20 sources) Hypothyroidism, unspecified; Translations: [Hypothyroidism] Onset: 02-28-2008 03-15-2020 Chronic Unclassified (4 sources) COUGH, UNSPECIFIED; Translations: [COUGH, UNSPECIFIED] Onset: 04-17-2022 Unclassified (4 sources) CONTACT W/AND (SUSP) EXPOS COVID-19; Translations: [CONTACT W/AND (SUSP) EXPOS COVID-19] Onset: 04-17-2022 Past or Other Problems Problem Classification Problem Date Documented Da te Episodic/Chronic Conditions associated with dizziness or vertigo (20 sources) Dizziness and giddiness; Translations: [Dizziness] Onset: 11-22-2015 Resolved: 09-04-2024 04-16-2023 Episodic Diseases of mouth; excluding dental (20 sources) Chronic glossitis; Translations: [Glossitis] Onset: 05-16-2023 Resolved: 09-04-2024 05-16-2023 Episodic E Codes: Adverse effects of medical drugs (20 sources) Antidepressant drug adverse reaction; Translations: [Adverse effect of unspecified antidepressants, initial encounter] Onset: 11-22-2015 Resolved: 09-04-2024 04-16-2023 Episodic Gastritis and duodenitis (20 sources) Acute gastritis; Translations: [Acute gastritis without bleeding] Onset: 02-28-2008 Resolved: 04-16-2023 04-16-2023 Episodic Hepatitis (1 source) Unspecified viral hepatitis C without hepatic coma; Translations: [UNS VIRAL HEPATITIS C W/O HEP COMA] Onset: 10-06-2021 Episodic Intestinal infection (1 source) Rotaviral enteritis; Translations: [ROTAVIRAL ENTERITIS] Onset: 02-14-2022 Episodic Malaise and fatigue (3 sources) Other fatigue; Translations: [OTHER FATIGUE] Onset: 08-20-2021 Episodic Mood disorders (20 sources) Mood disorders Onset: 04-16-2023 Resolved: 09-04-2024 04-16-2023 Neoplasms of unspecified nature or uncertain behavior (20 sources) 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; Translations: [Neoplasm of uncertain behavior of other specified digestive organs] Onset: 04-15-2023 Resolved: 09-04-2024 04-15-2023 Episodic Other aftercare (1 source) Other assisted (current) drug therapy; Translations: [OTH CARE HOME CURRENT DRUG THERAPY] Onset: 04-14-2022 Episodic Other and unspecified benign neoplasm (20 sources) 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; Translations: [Benign neoplasm of liver] Onset: 09-10-2009 04-15-2023 Episodic Other and unspecified benign neoplasm (20 sources) Benign neoplasm of skin; Translations: [Other benign neoplasm of skin, unspecified] Onset: 09-27-2009 Resolved: 09-04-2024 04-15-2023 Episodic Other and unspecified benign neoplasm (20 sources) Serous cystadenoma of pancreas; Translations: [Benign neoplasm of pancreas] Onset: 06-03-2024 09-04-2024 Episodic Other circulatory disease (1 source) Personal history of transient ischemic attack (TIA), and cerebral infarction without residual deficits; Translations: [PERS HX TIA AND CI NO RESID DEFICIT] Onset: 02-14-2022 Episodic Other circulatory disease (20 sources) History of transient ischemic attack; Translations: [Personal history of transient ischemic attack (TIA), and cerebral infarction without residual deficits] Onset: 07-31-2023 03-15-2020 Episodic Other connective tissue disease (1 source) Myalgia, unspecified site; Translations: [MYALGIA UNSPECIFIED SITE] Onset: 04-14-2022 Episodic Other connective tissue disease (20 sources) Abdominal muscle pain; Translations: [Myalgia, other site] Onset: 02-28-2008 Resolved: 09-04-2024 04-15-2023 Episodic Other connective tissue disease (20 sources) Muscle pain; Translations: [Myalgia, unspecified site] Onset: 07-04-2023 07-04-2023 Episodic Other connective tissue disease (20 sources) Fibromyalgia; Translations: [Fibromyalgia] Onset: 04-26-2024 04-26-2024 Episodic Other ear and sense organ disorders (20 sources) Bilateral tinnitus; Translations: [Tinnitus, bilateral] Onset: 04-15-2023 04-15-2023 Episodic Other female genital disorders (20 sources) Abnormal vaginal bleeding; Translations: [Abnormal uterine and vaginal bleeding, unspecified] Onset: 07-26-2016 Resolved: 04-16-2023 04-16-2023 Chronic Other female genital disorders (20 sources) Swelling of vagina; Translations: [Noninflammatory disorder of vagina, unspecified] Onset: 04-15-2023 Resolved: 09-04-2024 04-15-2023 Episodic Other gastrointestinal disorders (3 sources) Diarrhea, unspecified; Translations: [DIARRHEA UNSPECIFIED] Onset: 02-10-2022 Episodic Other gastrointestinal disorders (20 sources) History of gastritis; Translations: [Personal history of other diseases of the digestive system] Onset: 04-16-2023 04-16-2023 Episodic Other inflammatory condition of skin (4 sources) Pruritus, unspecified; Translations: [PRURITUS UNSPECIFIED] Onset: 09-26-2021 Episodic Other nervous system disorders (20 sources) Disorder of muscle; Translations: [Myopathy, unspecified] Onset: 07-26-2023 Resolved: 12-21-2023 07-26-2023 Chronic Other nervous system disorders (20 sources) Carpal tunnel syndrome; Translations: [Carpal tunnel syndrome, unspecified upper limb] Onset: 04-26-2024 Resolved: 09-04-2024 04-26-2024 Chronic Other nervous system disorders (20 sources) Abnormal gait; Translations: [Unspecified abnormalities of gait and mobility] Onset: 04-15-2023 04-15-2023 Episodic Other nervous system disorders (20 sources) Notalgia paresthetica; Translations: [Paresthesia of skin] Onset: 04-15-2023 04-15-2023 Episodic Other nervous system disorders (20 sources) Skin sensation disturbance; Translations: [Unspecified disturbances of skin sensation] Onset: 04-26-2024 04-26-2024 Episodic Other non-traumatic joint disorders (20 sources) Arthralgia of the pelvic region and thigh; Translations: [Pain in unspecified hip] Onset: 04-26-2024 04-26-2024 Episodic Other nutritional; endocrine; and metabolic disorders (20 sources) Body mass index 40+ - severely obese; Translations: [Body mass index (BMI) 45.0-49.9, adult] Onset: 07-31-2023 Resolved: 07-31-2023 03-16-2020 Chronic Other screening for suspected conditions (not mental disorders or infectious disease) (20 sources) Encounter for screening mammogram for malignant neoplasm of breast; Translations: [Full blood count abnormal] Onset: 09-14-2021 Episodic Other skin disorders (20 sources) Infection of sebaceous cyst; Translations: [Sebaceous cyst] Onset: 07-31-2023 03-16-2020 Episodic Other upper respiratory infections (1 source) Acute pharyngitis, unspecified; Translations: [ACUTE PHARYNGITIS UNSPECIFIED] Onset: 12-30-2021 Episodic Pancreatic disorders (not diabetes) (20 sources) Cyst of pancreas; Translations: [Cyst of pancreas] Onset: 08-11-2022 Episodic Residual codes; unclassified (1 source) Acquired absence of other specified parts of digestive tract; Translations: [ACQ ABSENCE OTH PART DIGESTV TRACT] Onset: 02-14-2022 Episodic Residual codes; unclassified (1 source) Patient's other noncompliance with medication regimen; Translations: [PT OTH NONCOMPLIANCE W/ MED REGIMEN] Onset: 08-22-2021 Episodic Residual codes; unclassified (20 sources) Menopause present; Translations: [Asymptomatic menopausal state] Onset: 12-25-2023 12-25-2023 Episodic Residual codes; unclassified (20 sources) Transient alteration of awareness; Translations: [Transient alteration of awareness] Onset: 04-26-2024 Resolved: 09-04-2024 04-26-2024 Episodic Unclassified (1 source) COUGH, UNSPECIFIED; Translations: [COUGH, UNSPECIFIED] Onset: 04-20-2022 Unclassified (1 source) CONTACT W/AND (SUSP) EXPOS COVID-19; Translations: [CONTACT W/AND (SUSP) EXPOS COVID-19] Onset: 04-13-2022 Results Test Name Value Interpretation Reference Range Facility US PELVIC COMPLETE W/ TVon 0 12-10-2024 US PELVIC COMPLETE W/ TV EXAM: US PELVIC COMPLETE W/ TV HISTORY: Bleeding after intercourse, pain. COMPARISON: None available. TECHNIQUE: Two-dimensional transabdominal grayscale ultrasound imaging of the pelvis was performed. Color flow Doppler imaging of the ovaries was also performed. Transvaginal was performed. FINDINGS: UTERUS 7.2 x 4.3 x 5.4 cm The uterus is retroverted in position and demonstrates a normal, homogeneous echotexture. Multiple nabothian cysts are visualized within the cervix. ENDOMETRIUM 0.4 cm The endometrium demonstrates a normal, homogeneous echotexture. RIGHT OVARY 3.7 x 2.0 x 2.3 cm The right ovary demonstrates a normal echotexture. There is normal color Doppler flow. There is a 1.4 cm dominant follicle visualized. LEFT OVARY 3.6 x 1.9 x 2.6 cm The left ovary demonstrates a normal echotexture. There is normal color Doppler flow. No fluid is present within the cul-de-sac. IMPRESSION: 1. Unremarkable ultrasound of the pelvis. 2. Normal color Doppler flow within the bilateral ovaries. Electronically Signed:Electronically signed by JILLIAN THEODORE II, MD, PHD at 11-Dec-2024 08:46:31 AM [facility] Normal Not Available Comment on above: Order Comment: US PE LVIS-TRANSVAG IF INDICATED No LMP recorded. Patient is premenopausal. LIPID PANEL, STANDARDon 09-25 Cholesterol [Mass/Vol] 249 mg/dL High <200 [facility] Comment on above: Order Comment: FASTI NG:YES FASTING: YES Performed By: #### 7 600 #### [facility] [address], [address] [place] [address] Oim Consultant: Luca Guajardo MD Cholesterol in HDL [Mass/Vol] 48 mg/dL Low > OR = 50 [facility] Comment on above: Order Comment: FASTI NG:YES FASTING: YES Performed By: #### 7 600 #### [facility] [address], [address] [place] [address] Oim Consultant: Luca Guajardo MD Cholesterol in LDL [Mass/Vol] 159 mg/dL High [facility] Comment on above: Order Comment: FASTI NG:YES FASTING: YES Result Comment: Refe rence range: <100 Desirable range <100 mg/dL for primary prevention; <70 mg/dL for patients with CHD or diabetic patients with > or = 2 CHD risk factors. LDL-C is now calculated using the Heather calculation, which is a validated novel method providing better accuracy than the Friedewald equation in the estimation of LDL-C. Bill RUBIO et al. NOÉ. 2013;310(19): 0182-2791 (http://education.[employer]Ment[employer]/faq/GXM991) Performed By: #### 7 600 #### [facility] [address], [address] [place] [address] Oim Consultant: Luca Guajardo MD Cholesterol.total/Cho lesterol in HDL [Mass ratio] 5.2 {ratio} High <5.0 [facility] Comment on above: Order Comment: FASTI NG:YES FASTING: YES Performed By: #### 7 600 #### [facility] [address], [address] [place] [address] Oim Consultant: Luca Guajardo MD NON HDL CHOLESTEROL 201 mg/dL (calc) High <130 [facility] Comment on above: Order Comment: FASTI NG:YES FASTING: YES Result Comment: For patients with diabetes plus 1 major ASCVD risk factor, treating to a non-HDL-C goal of <100 mg/dL (LDL-C of <70 mg/dL) is considered a therapeutic option. Performed By: #### 7 600 #### [facility] [address], [address] [place] [address] Oim Consultant: Luca Guajardo MD Triglyceride [Mass/Vol] 247 mg/dL High <150 [facility] Comment on above: Order Comment: FASTI NG:YES FASTING: YES Result Comment: If a non-fasting specimen was collected, consider repeat triglyceride testing on a fasting specimen if clinically indicated. Crista et al. J. of Clin. Lipidol. 2015;9:129-169. Performed By: #### 7 600 #### [facility] [address], [address] [place] [address] Oim Consultant: Luca Guajardo MD EMG 2 Extremitieson 08-20-20 24 [facility] NVC 08-05 Nerveson 4 [facility] Ptosis Visual Field, Limited - OU - Both Eyeson 07-07-2024 Right Eye Threshold was LVC. Strategy was Full Threshold. Reliability was good. Progression has no prior data. Foveal threshold was reduced. Findings include superior altitudinal defect. Left Eye Threshold was LVC. Strategy was Full Threshold. Reliability was good. Progression has no prior data. Foveal threshold was reduced. Findings include superior nasal step defect, superior altitudinal defect, superior paracentral defect. Notes Visual field demonstrates superior loss of >40 degrees that resolves with manual elevation [facility]iology Study observation (narrative) [facility] Physician Orderon 06-05-2023 Physician Order [id number] .[id number]:127 Normal [facility] BMPon 05-09-2023 Anion gap [Moles/Vol] 10 mmol/L Normal -16 [facility] Comment on above: Performed By: #### 2 [id number], [id number], [id number] #### [facility] [address] [place] [address] Calcium [Mass/Vol] 9.1 mg/dL Normal 8.9-11.1 [facility] Comment on above: Performed By: #### 2 290181, [id number], [id number] #### [facility] [address] [place] [address] Chloride [Moles/Vol] 104 mmol/L Normal 101-111 [facility] Comment on above: Performed By: #### 2 915167, [id number], [id number] #### [facility] [address] [place] [address] CO2 [Moles/Vol] 27 mmol/L Normal 21-31 [facility] Comment on above: Performed By: #### 2 256009, [id number], [id number] #### [facility] [address] [place] [address] Creatinine [Mass/Vol] 0.7 mg/dL Normal 0.5-1.3 [facility] Comment on above: Performed By: #### 2 909301, [id number], [id number] #### [facility] [address] [place] [address] Glucose [Mass/Vol] 136 mg/dL Normal 55-199 [facility] Comment on above: Result Comment: If t his glucose result represents a fasting glucose, interpretation should refer to the following reference range: 55-99 mg/dL Performed By: #### 2 [id number], [id number], [id number] #### [facility] [address] [place] [address] Potassium [Moles/Vol] 4.4 mmol/L Normal 3.5-5.3 [facility] Comment on above: Performed By: #### 2 723993, [id number], [id number] #### [facility] [address] [place] [address] Sodium [Moles/Vol] 137 mmol/L Normal 135-145 [facility] Comment on above: Performed By: #### 2 644957, [id number], [id number] #### [facility] [address] [place] [address] Urea nitrogen [Mass/Vol] 8 mg/dL Normal 5-21 [facility] Comment on above: Performed By: #### 2 520301, [id number], [id number] #### [facility] [address] [place] [address] Urea nitrogen/Creatinine [Mass ratio] 11 No Units Normal 10-20 [facility] Comment on above: Performed By: #### 2 955878, [id number], [id number] #### [facility] [address] [place] [address] CBC w/Indiceson 05-09-2023 Erythrocyte distribution width (RBC) [Ratio] 14.6 % High 10.9-14.2 [facility] Comment on above: Performed By: #### 2 865461, [id number], [id number] #### [facility] [address] [place] [address] Hematocrit (Bld) [Volume fraction] 43.8 % Normal 34.0-46.0 [facility] Comment on above: Performed By: #### 2 928684, [id number], [id number] #### [facility] [address] [place] [address] Hemoglobin (Bld) [Mass/Vol] 14.9 g/dL Normal 12.0-16.0 [facility] Comment on above: Performed By: #### 2 137821, [id number], [id number] #### [facility] [address] [place] [address] MCH (RBC) [Entitic mass] 29.2 pg Normal 27.0-34.0 [facility] Comment on above: Performed By: #### 2 709325, [id number], [id number] #### [facility] [address] [place] [address] MCHC (RBC) [Mass/Vol] 34.0 g/dL Normal 31.4-36.0 [facility] Comment on above: Performed By: #### 2 487241, [id number], [id number] #### [facility] [address] [place] [address] MCV (RBC) [Entitic vol] 86.1 fL Normal 80.0-100.0 [facility] Comment on above: Performed By: #### 2 725091, [id number], [id number] #### [facility] [address] [place] [address] Platelet mean volume (Bld) [Entitic vol] 8.3 fL Normal 6.4-10.8 [facility] Comment on above: Performed By: #### 2 100274, [id number], 1549705 #### [facility] [address] [place] [address] Platelets (Bld) [#/Vol] 229.0 E9/L Normal 150.0-500.0 [facility] Comment on above: Performed By: #### 2 043815, [id number], [id number] #### [facility] [address] [place] [address] RBC (Bld) [#/Vol] 5.1 E12/L Normal 4.3-5.9 [facility] Comment on above: Performed By: #### 2 942576, [id number], [id number] #### [facility] [address] [place] [address] WBC corrected for nucl RBC Auto (Bld) [#/Vol] 8.1 E9/L Normal 4.0-11.0 [facility] Comment on above: Performed By: #### 2 928259, [id number], [id number] #### [facility] [address] [place] [address] CHEMISTRYOrdered By: SYSTEM SYSTEM on 05-09-2023 Anion gap [Moles/Vol] 10 mmol/L Normal 6 - 16 mEq/L [facility] Calcium [Mass/Vol] 9.1 mg/dL Normal 8.9 - 11. 1 mg/dL [facility] Chloride [Moles/Vol] 104 mmol/L Normal 101 - 1 11 mmol/L [facility] CO2 [Moles/Vol] 27 mmol/L Normal 21 - 31 mmol/L [facility] Creatinine [Mass/Vol] 0.7 mg/dL Normal 0.5 - 1.3 mg/dL [facility] GFR/1.73 sq M.predicted among non-blacks MDRD (S/P/Bld) [Vol rate/Area] 103 mL/min/1.73 m2 Normal >=59mL/min/1. 73 m2 [facility] Chem S Glucose [Mass/Vol] 136 mg/dL Normal [...] Treatmenton 04-24 Consent for Treatment [id number] .[id number]:127 Normal [facility] HEMATOLOGYOrdered By: Serjio Wolfe on 05-09-2023 Erythrocyte distribution width (RBC) [Ratio] 14.6 % High 10.9 - 14.2 % [facility] Hematocrit (Bld) [Volume fraction] 43.8 % Normal 34.0 - 46.0 % [facility] Hemoglobin (Bld) [Mass/Vol] 14.9 g/dL Normal 12.0 - 16.0 gm/dL [facility] MCH (RBC) [Entitic mass] 29.2 pg Normal 27.0 - 34.0 pg [facility] MCHC (RBC) [Mass/Vol] 34.0 g/dL Normal 31.4 - 36.0 gm/dL [facility] MCV (RBC) [Entitic vol] 86.1 fL [...] 8.1 E9/L Normal 4.0 - 11.0 E9/L [facility] HemeAutoSS eGFRon 05-09-2023 GFR/1.73 sq M.predicted among non-blacks MDRD (S/P/Bld) [Vol rate/Area] 103 mL/min/1.73 m2 Normal >=59 [facility] Comment on above: Order Comment: Order added by Discern Expert. Result Comment: Inspector Balance Bridge iona kidney disease could be indicated at eGFR's of less than 60 mL/min/1.73m2. Kidney failure is indicated at less than 15 mL/min/1.73m2. Performed By: #### 2 [id number], [id number], [id number] #### [facility] [address] [place] [address] MRI ABDOMEN WO W CONon 08-15 MRI [...] by: AMAN THOMAS Date: 2022-08-15 09:36 Normal [facility] CREATININEon 08-11-2022 Creatinine [Mass/Vol] 0.79 mg/dL Normal 0.55-1.02 [facility] Comment on above: Performed By: #### G IPANEL #### [facility] [address] [address] [address] Steven Simon EGFR-AF WALLISIAN >60 Normal >=60 [facility] Comment on above: Performed By: #### G IPANEL #### [facility] [address] [address] [address] Steven Simon EGFR-NON AF WALLISIAN >60 Normal >=[address] [facility] Comment on above: Performed By: #### G IPANEL #### [facility] [address] [address] [address] Steven Simon US PELVIS AND TRANSVAGon [...] HUMPHREY LORA Date: 2022-07-24 07:[address] [facility] XR CHEST 2 Von 04-20-2022 XR CHEST 2 V EXAM: XR CHEST 2 V HISTORY: Cough. COMPARISON: 04/13/2022 TECHNIQUE: Frontal and lateral chest FINDINGS: Heart and vascularity are unremarkable. Lungs are expanded and free of focal infiltrates. No acute bony abnormality is appreciated. IMPRESSION: No acute heart or lung disease identified. Electronically authenticated by: HUMPHREY ENNIS Date: 2022-04-20 07:59 Normal [facility] Covid-19 PCR (CVDTB)on 03-25 SARS-CoV-2 (COVID-19) RNA TATIANA+probe Ql (Unsp spec) Not detected Normal NOT DETECTED [facility] Comment on above: Result Comment: When diagnostic [...] for this test is supported by the Nurse Examiner of Health and Human Service's declaration that [...] used). Performed By: #### G IPANEL #### [facility] [address] [place] [address] Dr. Steven Simon XR CHEST 1 Von [...] HUMPHREY LORA Date: 2022-04-13 10:[address] [facility] GIARDIA LAMBLIA AND CRYPTO D ETECTIONon 04-11-2022 Cryptosporidium EIA Negative Normal Negative [facility] Comment on above: Performed By: #### G IACRY #### [facility] [address] [place] [address] Dr. Steven Simon Giardia lamblia Ag, EIA Negative Normal Negative [facility] Comment on above: Performed By: #### G IACRY #### [facility] [address] [place] [address] Dr. Steven Simon OVA AND PARASITE EXAMINATION on 04-11-2022 O AND P Exam, Formalin Only Final report Normal [facility] Comment on above: Result Comment: Refe rence Range: None Seen No PVA preserved specimen received. For optimal O and P results we suggest the use of O and P kits containing both formalin and PVA. These kits are available from your service trainer. Performed By: #### E RUR #### [facility] [address] [place] [address] Dr. Steven Simon Result 1 Comment Normal [facility] Comment on above: Result Comment: No o va, cysts, or parasites seen. . One negative specimen does not rule out the possibility of a parasitic infection. Performed By: #### E RUR #### [facility] [address] [place] [address] Dr. Steven Simon CBC AUTO DIFFon 02-10-2022 BASO # 0.0 103/ul Normal 0.0-0.1 [facility] Comment on above: Performed By: #### C BC #### [facility] [address] [place] [address] Dr. Steven Simon Basophils/100 WBC (Bld) 0.2 % Normal 0.2-2.0 [facility] Comment on above: Performed By: #### C BC #### [facility] [address] [place] [address] Dr. Steven Simon EO # 0.0 103/ul Normal 0.0-0.[address] [facility] Comment on above: Performed By: #### C BC #### [facility] [address] [place] [address] Dr. Steven Simon Eosinophils/100 WBC (Bld) 0.6 % Critically low 0.9-7.[address] [facility] Comment on above: Performed By: #### C BC #### [facility] [address] [place] [address] Dr. Steven Simon Erythrocyte distribution width (RBC) [Ratio] 13.8 % Normal 11.0-15.[address] [facility] Comment on above: Performed By: #### C BC #### [facility] [address] [place] [address] Dr. Steven Simon Hematocrit (Bld) [Volume fraction] 46.6 % Normal 36.0-48.0 [facility] Comment on above: Performed By: #### C BC #### [facility] [address] [place] [address] Dr. Steven Simon Hemoglobin (Bld) [Mass/Vol] 14.9 g/dL Normal 12.0-16.0 [facility] Comment on above: Performed By: #### C BC #### [facility] [address] [place] [address] Dr. Steven Simon IG # 0.02 10e3/ul Normal 0.00-0.03 [facility] Comment on above: Performed By: #### C BC #### [facility] [address] [place] [address] Dr. Steven Simon IG % 0.3 % Normal 0.0-0.5 [facility] Comment on above: Performed By: #### C BC #### [facility] [address] [place] [address] Dr. Steven Simon LYMPH # 1.4 103/ul Normal 1.2-3.8 [facility] Comment on above: Performed By: #### C BC #### [facility] [address] [place] [address] Dr. Steven Simon Lymphocytes/100 WBC (Bld) 21.4 % Normal 20.5-60.0 [facility] Comment on above: Performed By: #### C BC #### [facility] [address] [place] [address] Dr. Steven Simon MANUAL DIFF REQ NO Normal [facility] Comment on above: Performed By: #### C BC #### [facility] [address] [place] [address] Dr. Steven Simon MCH (RBC) [Entitic mass] 28.9 pg Normal 26.7-34.0 [facility] Comment on above: Performed By: #### C BC #### [facility] [address] [address] [address] Steven Simon MCHC (RBC) [Mass/Vol] 32.0 g/dL Normal 29.9-35.[address] [facility] Comment on above: Performed By: #### C BC #### [facility] [address] [address] [address] Steven Simon MCV (RBC) [Entitic vol] 90.5 fL Normal 81.0-99.[address] [facility] Comment on above: Performed By: #### C BC #### [facility] [address] [address] [address] Steven iSmon MONO # 0.9 103/ul Critically high 0.3-0.8 [facility] Comment on above: Performed By: #### C BC #### [facility] [address] [place] [address] Dr. Steven Simon Monocytes/100 WBC (Bld) 13.7 % Critically high 1.7-12.0 [facility] Comment on above: Performed By: #### C BC #### [facility] [address] [place] [address] Dr. Steven Simon NEUT # 4.1 103/ul Normal 1.4-6.5 [facility] Comment on above: Performed By: #### C BC #### [facility] [address] [place] [address] Dr. Steven Simno Neutrophils/100 WBC (Bld) 63.8 % Normal 43.0-75.[address] [facility] Comment on above: Performed By: #### C BC #### [facility] [address] [place] [address] Dr. Steven Simon Platelet mean volume (Bld) [Entitic vol] 9.9 fL Normal 9.5-13.[address] [facility] Comment on above: Performed By: #### C BC #### [facility] [address] [place] [address] Dr. Steven Simon PLT 195 103/ul Normal 150-[address] [facility] Comment on above: Performed By: #### C BC #### [facility] [address] [place] [address] Dr. Steven Simon RBC 5.15 106/ul Normal 4.20-5.40 [facility] Comment on above: Performed By: #### C BC #### [facility] [address] [place] [address] Dr. Steven Simon WBC 6.4 103/ul Normal 4.0-11.0 [facility] Comment on above: Performed By: #### C BC #### [facility] [address] [place] [address] Dr. Steven Simon Covid-19 PCR (CVDTBH)on 01-23 SARS-CoV-2 (COVID-19) RNA TATIANA+probe Ql (Unsp spec) Not detected Normal NOT DETECTED [facility] Comment on above: Result Comment: When diagnostic [...] for this test is supported by the Nurse Examiner of Health and Human Service's declaration that [...] used). Performed By: #### C VDTBH #### [facility] [address] [place] [address] Dr. Steven Simon GI PANEL (PCR)on 02-10-2022 Adenovirus F 40/41 Not detected Normal NOT DETECTED [facility] Comment on above: Performed By: #### G IPANEL #### [facility] [address] [place] [address] Dr. Steven Simon Astrovirus Not detected Normal NOT DETECTED The [facility] Comment on above: Performed By: #### G IPANEL #### [facility] [address] [address] [address] Steven Brand. Diff toxin A/B Not detected Normal NOT DETECTED [facility] Comment on above: Performed By: #### G IPANEL #### [facility] [address] [address] [address] Steven Simon Campylobacter Not detected Normal NOT DETECTED [facility] Comment on above: Performed By: #### G IPANEL #### [facility] [address] [address] [address] Steven Simon Cryptosporidium Not detected Normal NOT DETECTED The [facility] Comment on above: Performed By: #### G IPANEL #### [facility] [address] [place] [address] Dr. Steven Simon Cyclos. Cayetanensis Not detected Normal NOT DETECTED [facility] Comment on above: Performed By: #### G IPANEL #### [facility] [address] [place] [address] Dr. Steven Simon E. Coli O157 Not Applicable Normal Not Applicable [facility] Comment on above: Performed By: #### G IPANEL #### [facility] [address] [place] [address] Dr. Steven Simon E. histolytica Not detected Normal NOT DETECTED The [facility] Comment on above: Performed By: #### G IPANEL #### [facility] [address] [place] [address] Dr. Steven Simon EAEC Not detected Normal NOT DETECTED [facility] Comment on above: Performed By: #### G IPANEL #### [facility] [address] [place] [address] Dr. Steven Simon EIEC Not detected Normal NOT DETECTED [facility] Comment on above: Performed By: #### G IPANEL #### [facility] [address] [place] [address] Dr. Steven Simon EPEC Not detected Normal NOT DETECTED [facility] Comment on above: Performed By: #### G IPANEL #### [facility] [address] [place] [address] Dr. Steven Simon ETEC Not detected Normal NOT DETECTED [facility] Comment on above: Performed By: #### G IPANEL #### [facility] [address] [place] [address] Dr. Steven Lieberman Lamblia Not detected Normal NOT DETECTED [facility] Comment on above: Performed By: #### G IPANEL #### [facility] [address] [address] [address] Steven MOSS CONTROLS PASSED Normal [facility] Comment on above: Performed By: #### G IPANEL #### [facility] [address] [address] [address] Steven BOWSER HEADER GI PANEL BACTERIA Normal T [facility] Comment on above: Performed By: #### G IPANEL #### [facility] [address] [place] [address] Dr. Steven CARDENAS ECOLI GI PANEL DIARRHEAGENIC E.COLI / SHIGELLA Normal [facility] Comment on above: Performed By: #### G IPANEL #### [facility] [address] [place] [address] Dr. Steven CARDENAS INFO SEE BELOW [facility] Comment on above: Result Comment: EAEC - Enteroaggregative E. Coli EPEC- Enteropathogenic E. Coli ETEC- Enterotoxigenic E. Coli lt/st STEC- Shigella-like toxin-producing E. Coli stx1/stx2 EIEC- Shigella/Enteroinvasive E. Coli Performed By: #### G IPANEL #### [facility] [address] [place] [address] Dr. Steven CARDENAS PARASITES GI PANEL PARASITES Normal [facility] Comment on above: Performed By: #### G IPANEL #### [facility] [address] [address] [address] Steven CARDENAS VIRUS GI PANEL VIRUSES Normal [facility] Comment on above: Performed By: #### G IPANEL #### [facility] [address] [place] [address] Dr. Steven Simon Norovirus GI/GII Not detected Normal NOT DETECTED [facility] Comment on above: Performed By: #### G IPANEL #### [facility] [address] [place] [address] Dr. Steven Simon PSusanne Shigelloides Not detected Normal NOT DETECTED [facility] Comment on above: Performed By: #### G IPANEL #### [facility] [address] [place] [address] Dr. Steven Simon Rotavirus A Detected Abnormal NOT DETECTED [facility] Comment on above: Performed By: #### G IPANEL #### [facility] [address] [address] [address] Steven Simon Salmonella Not detected Normal NOT DETECTED [facility] Comment on above: Performed By: #### G IPANEL #### [facility] [address] [place] [address] Dr. Steven Simon Sapovirus Not detected Normal NOT DETECTED [facility] Comment on above: Performed By: #### G IPANEL #### [facility] [address] [place] [address] Dr. Steven Simon STEC Not detected Normal NOT DETECTED [facility] Comment on above: Performed By: #### G IPANEL #### [facility] [address] [place] [address] Dr. Steven Simon Vibrio Not detected Normal NOT DETECTED [facility] Comment on above: Performed By: #### G IPANEL #### [facility] [address] [place] [address] Dr. Steven Simon Vibrio Cholera Not detected Normal NOT DETECTED The [facility] Comment on above: Performed By: #### G IPANEL #### [facility] [address] [place] [address] Dr. Steven Simon Y. Enterocolitica Not detected Normal NOT DETECTED [facility] Comment on above: Performed By: #### G IPANEL #### [facility] [address] [place] [address] Dr. Steven Simon LACTATE/LACTIC ACIDon 2021 Lactate [Moles/Vol] 0.6 mmol/L Normal 0.4-1.[address] [facility] Comment on above: Performed By: #### G IPANEL #### [facility] [address] [place] [address] Dr. Steven Simon PROF 14(COMP METB)on 022 Albumin [Mass/Vol] 3.3 g/dL Critically low 3.4-5.0 [facility] Comment on above: Performed By: #### E RUR #### [facility] [address] [place] [address] Dr. Steven Simon Albumin/Globulin [Mass ratio] 0.9 {ratio} Normal [facility] Comment on above: Performed By: #### E RUR #### [facility] [address] [place] [address] Dr. Steven Simon ALP [Catalytic activity/Vol] 63 U/L Normal 46-116 [facility] Comment on above: Performed By: #### E RUR #### [facility] [address] [place] [address] Dr. Steven Simon ALT [Catalytic activity/Vol] 26 U/L Normal 14-59 [facility] Comment on above: Performed By: #### E RUR #### [facility] [address] [place] [address] Dr. Steven Simon Anion gap [Moles/Vol] 12.2 mmol/L Normal Th [facility] Comment on above: Performed By: #### E RUR #### [facility] [address] [place] [address] Dr. Steven Simon AST [Catalytic activity/Vol] 18 U/L Normal 15-37 [facility] Comment on above: Performed By: #### E RUR #### [facility] [address] [place] [address] Dr. Steven Simon Bilirubin [Mass/Vol] 0.6 mg/dL Normal 0.2-1.0 [facility] Comment on above: Performed By: #### E RUR #### [facility] [address] [place] [address] Dr. Steven Simon Calcium [Mass/Vol] 7.6 mg/dL Critically low 8.5-10.1 [facility] Comment on above: Performed By: #### E RUR #### [facility] [address] [place] [address] Dr. Steven Simon Chloride [Moles/Vol] 102 mmol/L Normal 98-107 [facility] Comment on above: Performed By: #### E RUR #### [facility] [address] [address] [address] Steven Simon CO2 [Moles/Vol] 24.6 mmol/L Normal 21.0-32.0 [facility] Comment on above: Performed By: #### E RUR #### [facility] [address] [place] [address] Dr. Steven Simon Creatinine [Mass/Vol] 0.71 mg/dL Normal 0.55-1.02 [facility] Comment on above: Performed By: #### E RUR #### [facility] [address] [place] [address] Dr. Steven Simon EGFR-AF WALLISIAN >60 Normal >=60 [facility] Comment on above: Performed By: #### E RUR #### [facility] [address] [place] [address] Dr. Steven Simon EGFR-NON AF WALLISIAN >60 Normal >=60 [facility] Comment on above: Performed By: #### E RUR #### [facility] [address] [place] [address] Dr. Steven Simon Globulin (S) [Mass/Vol] 3.6 g/dL Normal [facility] Comment on above: Performed By: #### E RUR #### [facility] [address] [place] [address] Dr. Steven Simon Glucose [Mass/Vol] 146 mg/dL Critically high 74-106 T [facility] Comment on above: Performed By: #### E RUR #### [facility] [address] [place] [address] Dr. Steven Simon Potassium [Moles/Vol] 3.8 mmol/L Normal 3.5-5.1 [facility] Comment on above: Performed By: #### E RUR #### [facility] [address] [address] [address] Steven Simon Protein [Mass/Vol] 6.9 g/dL Normal 6.4-8.2 [facility] Comment on above: Performed By: #### E RUR #### [facility] [address] [address] [address] Steven Simon Sodium [Moles/Vol] 135 mmol/L Critically low 136-145 Th [facility] Comment on above: Performed By: #### E RUR #### [facility] [address] [address] [address] Steven Simon Urea nitrogen [Mass/Vol] 7.0 mg/dL Normal 7.0-18.0 [facility] Comment on above: Performed By: #### E RUR #### [facility] [address] [address] [address] Steven Simon Urea nitrogen/Creatinine [Mass ratio] 9.9 mg/mg Normal [facility] Comment on above: Performed By: #### E RUR #### [facility] [address] [place] [address] Dr. Steven Simon XR CHEST 2 Von [...] cardiopulmonary process. Stable chest. Electronically authenticated by: MADISON DOTY Date: 2021-12-29 08:[address] [facility] Covid-19 PCR (CVDTB)on SARS-CoV-2 (COVID-19) RNA TATIANA+probe Ql (Unsp spec) Not detected Normal NOT DETECTED [facility] Comment on above: Result Comment: This test is not yet approved or cleared by the [place] FDA. When there are no FDA-approved or cleared tests available, and other criteria are met, FDA can make tests available under an emergency access mechanism called an Emergency Use Authorization (EUA). The EUA for this test is supported by the Nurse Examiner of Health and Human Service's (HHS's) declaration [...] SARS-CoV-2. Performed By: #### C VDTB #### [facility] [address] [place] [address] Dr. Steven Simon Microalbumin (with Creat)on 11-15-2021 mALB <1.2 Low [facility] Comment on above: Result Comment: Unab le to calculate mALB/Crea ratio, mALB is <1.2 mg/dL mALB reference range not established. Performed By: #### m ALBC #### [facility] [address], [place] [id number] UCREA 86 mg/dL Normal 28-217 [facility] Comment on above: Performed By: #### m ALBC #### [facility] [address], [place] [id number] Comprehensive Metabolic Pane martha 11-08-2021 Albumin [Mass/Vol] 4.3 g/dL Normal 3.6-5.1 [facility] Comment on above: Performed By: #### C MP, LIPD, TSH reflex FT4 #### [facility] [address], [place] [id number] Albumin/Globulin [Mass ratio] 2.0 {ratio} Normal 1.0-2.5 [facility] Comment on above: Performed By: #### C MP, LIPD, TSH reflex FT4 #### [facility] [address], [place] [id number] ALP [Catalytic activity/Vol] 64 U/L Normal 35-119 [facility] Comment on above: Performed By: #### C MP, LIPD, TSH reflex FT4 #### [facility] [address], [place] [id number] ALT [Catalytic activity/Vol] 30 U/L Normal 6-33 [facility] Comment on above: Result Comment: 08/24 Female reference range changed. Performed By: #### C MP, LIPD, TSH reflex FT4 #### [facility] [address], [place] [id number] Anion gap [Moles/Vol] 16 mmol/L Normal 12-20 [facility] Comment on above: Result Comment: Effe ctive 09/29/2019 reference range changed. Performed By: #### C MP, LIPD, TSH reflex FT4 #### [facility] [address], [place] [id number] AST [Catalytic activity/Vol] 30 U/L Normal 9-34 [facility] Comment on above: Performed By: #### C MP, LIPD, TSH reflex FT4 #### [facility] [address], [place] [id number] Bilirubin [Mass/Vol] 0.51 mg/dL Normal 0.30-1.20 [facility] Comment on above: Performed By: #### C MP, LIPD, TSH reflex FT4 #### [facility] [address], [place] [id number] BUN/CREA 14 Ratio Normal 6-22 [facility] Comment on above: Performed By: #### C MP, LIPD, TSH reflex FT4 #### [facility] [address], [place] [id number] Calcium [Mass/Vol] 9.5 mg/dL Normal 8.6-10.2 [facility] Comment on above: Performed By: #### C MP, LIPD, TSH reflex FT4 #### [facility] [address], [place] [id number] Chloride [Moles/Vol] 102 mmol/L Normal 98-107 [place] [facility] Comment on above: Performed By: #### C MP, LIPD, TSH reflex FT4 #### [facility] [address], [place] [id number] CO2 [Moles/Vol] 25 mmol/L Normal 20-31 [facility] Comment on above: Performed By: #### C MP, LIPD, TSH reflex FT4 #### [facility] [address], [place] [id number] Creatinine [Mass/Vol] 0.8 mg/dL Normal 0.6-1.4 [facility] Comment on above: Performed By: #### C MP, LIPD, TSH reflex FT4 #### [facility] [address], [place] [id number] eGFRAA 98 mL/min/1.73m2 Normal >60 [facility] Comment on above: Performed By: #### C MP, LIPD, TSH reflex FT4 #### [facility] [address], [place] [id number] eGFRNAA 81 mL/min/1.73m2 Normal >60 [facility] Comment on above: Performed By: #### C MP, LIPD, TSH reflex FT4 #### [facility] [address], [place] [id number] Globulin (S) [Mass/Vol] 2.2 g/dL Normal 1.9-3.7 [facility] Comment on above: Performed By: #### C MP, LIPD, TSH reflex FT4 #### [facility] [address], [place] [id number] Glucose [Mass/Vol] 128 mg/dL High 65-99 [facility] Comment on above: Result Comment: For FASTING Glucose --- ADA reference ranges: Normal 65-99 mg/dl Prediabetes 100-125 Diabetes >/= 126 Performed By: #### C MP, LIPD, TSH reflex FT4 #### [facility] [address], [place] [id number] Potassium [Moles/Vol] 4.7 mmol/L Normal 3.5-5.5 [facility] Comment on above: Performed By: #### C MP, LIPD, TSH reflex FT4 #### [facility] [address], [place] [id number] Protein [Mass/Vol] 6.5 g/dL Normal 6.1-8.1 [facility] Comment on above: Performed By: #### C MP, LIPD, TSH reflex FT4 #### [facility] [address], [place] [id number] Sodium [Moles/Vol] 139 mmol/L Normal 135-146 [facility] Comment on above: Performed By: #### C MP, LIPD, TSH reflex FT4 #### [facility] [address], [place] [id number] Urea nitrogen [Mass/Vol] 10 mg/dL Normal 7-25 [facility] Comment on above: Performed By: #### C MP, LIPD, TSH reflex FT4 #### [facility] [address], [place] [id number] Hemoglobin A1Con 11-08-2021 EAG 142.72 Normal [facility] Comment on above: Performed By: #### A 1C #### [facility] [address], [place] [id number] HbA1c (Bld) [Mass fraction] 6.6 % High 4.0-6.0 [facility] Comment on above: Performed By: #### A 1C #### [facility] [address], [place] [id number] Lipid Panelon 11-08-2021 Cholesterol [Mass/Vol] 245 mg/dL High 125-200 [facility] Comment on above: Result Comment: Low risk < 200mg/dL Borderline risk 201-239 mg/dl High risk > or equal to 240 Performed By: #### C MP, LIPD, TSH reflex FT4 #### [facility] [address], [place] [id number] Cholesterol in HDL [Mass/Vol] 42 mg/dL Normal >40 [facility] Comment on above: Result Comment: High Cardiovascular Risk HDL <40 mg/dL Low Cardiovascular Risk HDL > or equal to 60 mg/dl Performed By: #### C MP, LIPD, TSH reflex FT4 #### [facility] [address], [place] [id number] Cholesterol in LDL [Mass/Vol] 168 mg/dL Normal [facility] Comment on above: Result Comment: LDL ATP III CLASSIFICATION LDL less than 100 mg/dl Optimal LDL 100-129 mg/dl Near or above optimal LDL 130-159 Borderline high LDL 160-189 High LDL greater than 189 mg/dl Very High Performed By: #### C MP, LIPD, TSH reflex FT4 #### [facility] [address] [id number] Cholesterol in VLDL [Mass/Vol] 35 mg/dL Normal [facility] Comment on above: Performed By: #### C MP, LIPD, TSH reflex FT4 #### [facility] [address], [place] [id number] Cholesterol.total/Cho lesterol in HDL [Mass ratio] 6 {ratio} Normal [facility] Comment on above: Performed By: #### C MP, LIPD, TSH reflex FT4 #### [facility] [address], [place] [id number] Triglyceride [Mass/Vol] 177 mg/dL High 30-150 [facility] Comment on above: Result Comment: TRIG ATPIII CLASSIFICATIONS TRIG less than 150 mg/dl Normal TRIG 150-199 mg/dl Borderline High TRIG 200-500 mg/dl High TRIG greather than 500 mg/dl Very High Performed By: #### C MP, LIPD, TSH reflex FT4 #### [facility] [address], [place] [id number] TSH w/ Reflex to Free T4on 0 - TSH 0.949 uIU/mL Normal 0.400-4.500 [facility] Comment on above: Performed By: #### C MP, LIPD, TSH reflex FT4 #### [facility] [address], [place] [id number] HEPATITIS PANEL, ACUTEon HBsAg Screen Negative Normal Negative [facility] Comment on above: Performed By: #### H EPACUT #### [facility] [address] [place], [place] [address] Dr. Steven Simon Hep A Ab, IgM Negative Normal Negative [facility] Comment on above: Performed By: #### H EPACUT #### [facility] [address] [place] [address] Dr. Steven Simon Hep B Core Ab, IgM Negative Normal Negative [facility] Comment on above: Performed By: #### H EPACUT #### [facility] [address] [place] [address] Dr. Steven Simon Hep C Virus Ab 0.1 s/co ratio Normal 0.0-0.9 [facility] Comment on above: Result Comment: Nega tive: < 0.8 Indeterminate: 0.8 - 0.9 Positive: > 0.9 . The CDC recommends that a positive HCV antibody result be followed up with a HCV Nucleic Acid Amplification test ([id number]). Effective December 05, 2021 Hepatitis Panel (4) will be made non-orderable. [facility] offers order code [id number] Acute Hepatitis. Performed By: #### H EPACUT #### [facility] [address] [place] [address] Dr. Steven Simon CBC AUTO DIFFon 09-26-2021 BASO # 0.1 103/ul Normal 0.0-0.1 [facility] Comment on above: Performed By: #### G IPANEL #### [facility] [address] [place] [address] Dr. Steven Simon Basophils/100 WBC (Bld) 1.0 % Normal 0.2-2.0 [facility] Comment on above: Performed By: #### G IPANEL #### [facility] [address] [place] [address] Dr. Steven Simon EO # 0.1 103/ul Normal 0.0-0.7 [facility] Comment on above: Performed By: #### G IPANEL #### [facility] [address] [place] [address] Dr. Steven Simon Eosinophils/100 WBC (Bld) 1.1 % Normal 0.9-7.0 [facility] Comment on above: Performed By: #### G IPANEL #### [facility] [address] [place] [address] Dr. Steven Simon Erythrocyte distribution width (RBC) [Ratio] 13.2 % Normal 11.0-15.0 [facility] Comment on above: Performed By: #### G IPANEL #### [facility] [address] [place] [address] Dr. Steven Simon Hematocrit (Bld) [Volume fraction] 44.8 % Normal 36.0-48.0 [facility] Comment on above: Performed By: #### G IPANEL #### [facility] [address] [place] [address] Dr. Steven Simon Hemoglobin (Bld) [Mass/Vol] 14.5 g/dL Normal 12.0-16.0 [facility] Comment on above: Performed By: #### G IPANEL #### [facility] [address] [place] [address] Dr. Steven Simon IG # 0.02 10e3/ul Normal 0.00-0.03 [facility] Comment on above: Performed By: #### G IPANEL #### [facility] [address] [place] [address] Dr. Steven Simon IG % 0.2 % Normal 0.0-0.5 [facility] Comment on above: Performed By: #### G IPANEL #### [facility] [address] [place] [address] Dr. Steven Simon LYMPH # 3.6 103/ul Normal 1.2-3.8 [facility] Comment on above: Performed By: #### G IPANEL #### [facility] [address] [place] [address] Dr. Steven Simon Lymphocytes/100 WBC (Bld) 43.3 % Normal 20.5-60.0 [facility] Comment on above: Performed By: #### G IPANEL #### [facility] [address] [place] [address] Dr. Steven Simon MANUAL DIFF REQ NO Normal [facility] Comment on above: Performed By: #### G IPANEL #### [facility] [address] [place] [address] Dr. Steven Simon MCH (RBC) [Entitic mass] 28.6 pg Normal 26.7-34.0 [facility] Comment on above: Performed By: #### G IPANEL #### [facility] [address] [place] [address] Dr. Steven Simon MCHC (RBC) [Mass/Vol] 32.4 g/dL Normal 29.9-35.2 [facility] Comment on above: Performed By: #### G IPANEL #### [facility] [address] [place] [address] Dr. Steven Simon MCV (RBC) [Entitic vol] 88.4 fL Normal 81.0-99.0 [facility] Comment on above: Performed By: #### G IPANEL #### [facility] [address] [place] [address] Dr. Steven Simon MONO # 0.6 103/ul Normal 0.3-0.8 [facility] Comment on above: Performed By: #### G IPANEL #### [facility] [address] [place] [address] Dr. Steven Simon Monocytes/100 WBC (Bld) 7.5 % Normal 1.7-12.0 [facility] Comment on above: Performed By: #### G IPANEL #### [facility] [address] [place] [address] Dr. Steven Simon NEUT # 3.9 103/ul Normal 1.4-6.5 [facility] Comment on above: Performed By: #### G IPANEL #### [facility] [address] [place] [address] Dr. Steven Simon Neutrophils/100 WBC (Bld) 46.9 % Normal 43.0-75.[address] [facility] Comment on above: Performed By: #### G IPANEL #### [facility] [address] [place] [address] Dr. Steven Simon Platelet mean volume (Bld) [Entitic vol] 9.8 fL Normal 9.5-13.5 [facility] Comment on above: Performed By: #### G IPANEL #### [facility] [address] [place] [address] Dr. Steven Simon PLT 282 103/ul Normal 150-450 [facility] Comment on above: Performed By: #### G IPANEL #### [facility] [address] [place] [address] Dr. Steven Simon RBC 5.07 106/ul Normal 4.20-5.40 [facility] Comment on above: Performed By: #### G IPANEL #### [facility] [address] [address] [address] Steven Simon WBC 8.4 103/ul Normal 4.0-11.0 [facility] Comment on above: Performed By: #### G IPANEL #### [facility] [address] [address] [address] Steven Simon ELECTROLYTESon 09-26-2021 Anion gap [Moles/Vol] 14.7 mmol/L Normal [facility] Comment on above: Performed By: #### E LEC, LIVER #### [facility] [address] [place] [address] Dr. Steven Simon Chloride [Moles/Vol] 99 mmol/L Normal 98-107 [facility] Comment on above: Performed By: #### E LEC, LIVER #### [facility] [address] [place] [address] Dr. Steven Simon CO2 [Moles/Vol] 25.2 mmol/L Normal 22.0-30.0 [facility] Comment on above: Performed By: #### E LEC, LIVER #### [facility] [address] [place] [address] Dr. Steven Simon Potassium [Moles/Vol] 3.9 mmol/L Normal 3.4-5.0 [facility] Comment on above: Performed By: #### E LEC, LIVER #### [facility] [address] [place] [address] Dr. Steven Simon Sodium [Moles/Vol] 135 mmol/L Critically low 137-145 [facility] Comment on above: Performed By: #### E LEC, LIVER #### [facility] [address] [place] [address] Dr. Steven Simon LIVER PROFILEon 09-26-2021 Albumin [Mass/Vol] 3.7 g/dL Normal 3.5-5.0 [facility] Comment on above: Performed By: #### E LEC, LIVER #### [facility] [address] [place] [address] Dr. Steven Simon Albumin/Globulin [Mass ratio] 1.0 {ratio} Normal [facility] Comment on above: Performed By: #### E LEC, LIVER #### [facility] [address] [place] [address] Dr. Steven Simon ALP [Catalytic activity/Vol] 56 U/L Normal 38-126 [facility] Comment on above: Performed By: #### E LEC, LIVER #### [facility] [address] [place] [address] Dr. Steven Simon ALT [Catalytic activity/Vol] 41 U/L Normal 9-52 [facility] Comment on above: Performed By: #### E LEC, LIVER #### [facility] [address] [place] [address] Dr. Steven Simon AST [Catalytic activity/Vol] 27 U/L Normal 14-36 [facility] Comment on above: Performed By: #### E LEC, LIVER #### [facility] [address] [place] [address] Dr. Steven Simon BILI, CONJUGATED 0.1 mg/dL Normal 0.0-0.3 [facility] Comment on above: Performed By: #### E LEC, LIVER #### [facility] [address] [place] [address] Dr. Steven Simon Bilirubin [Mass/Vol] 0.5 mg/dL Normal 0.2-1.3 [facility] Comment on above: Performed By: #### E LEC, LIVER #### [facility] [address] [place] [address] Dr. Steven Simon Globulin (S) [Mass/Vol] 3.6 g/dL Normal [facility] Comment on above: Performed By: #### E LEC, LIVER #### [facility] [address] [place] [address] Dr. Steven Simon Protein [Mass/Vol] 7.3 g/dL Normal 6.1-8.2 [facility] Comment on above: Performed By: #### E LEC, LIVER #### [facility] [address] [address] [address] Steven Simon MG MAMM SCREEN 3D PATRICIA CADon 09-14-2021 MG MAMM SCREEN 3D PATRICIA CAD Patient: KEITH WASHINGTON Exam Date: 09/14/2021 : 1970 Gender:F Ordering : DR ERIK SMITH M.D. Admission #: [id number] Family : DR WILL CARSON . Order #: [id number] CLICK HERE TO VIEW EXAM RADIOLOGY REPORT PROCEDURE: MAMMOGRAM SCREENING 3D BILATERAL CAD COMPARISON: MG MAMM SCREEN PATRICIA W CAD, 04/08/2019. INDICATIONS: Screening mammography Calculator Name NCI Breast Cancer Risk Assessment Tool 5 Year Breast Cancer Risk 0.90% Lifetime Breast Cancer Risk 7.00% Personal Breast Cancer No Personal Ovarian Cancer No Treatments None Family Cancers None LOCATION: [facility] BREAST COMPOSITION: Scattered areas fibroglandular density. FINDINGS: [...] PALPABLE LUMP SHOULD BE BIOPSIED. Dictated by: Madison Doty M.D. on 09/14/2021 at 14:21 Approved by: Madison Doty M.D. on 09/14/2021 at 14:[address] [facility] Covid-19 PCR (CVDTBH)on 07-26 SARS-CoV-2 (COVID-19) RNA TATIANA+probe Ql (Unsp spec) Not detected Normal NOT DETECTED [facility] Comment on above: Result Comment: When diagnostic [...] for this test is supported by the Nurse Examiner of Health and Human Service's declaration that [...] used). Performed By: #### C VDTB #### [facility] [address] [place] [address] Dr. Steven Simon ER URINE PROFILEon 1 Bilirubin Ql (U) Negative Normal NEGATIVE [facility] Comment on above: Performed By: #### E RUR #### [facility] [address] [place] [address] Dr. Steven Simon Clarity (U) CLEAR Normal CLEAR [facility] Comment on above: Performed By: #### E RUR #### [facility] [address] [place] [address] Dr. Steven Simon Color (U) YELLOW Normal YELLOW [facility] Comment on above: Performed By: #### E RUR #### [facility] [address] [place] [address] Dr. Steven MARINELLI A micrscopic examination will be performed if indicated. Normal [facility] Comment on above: Performed By: #### E RUR #### [facility] [address] [place] [address] Dr. Steven Simon Glucose Ql (U) 500 mg/dl Abnormal NEGATIVE [facility] Comment on above: Performed By: #### E RUR #### [facility] [address] [place] [address] Dr. Steven Simon Hemoglobin Ql (U) Negative Normal NEGATIVE [facility] Comment on above: Performed By: #### E RUR #### [facility] [address] [place] [address] Dr. Steven Simon Ketones Ql (U) Negative Normal NEGATIVE [facility] Comment on above: Performed By: #### E RUR #### [facility] [address] [place] [address] Dr. Steven Simon LEUKOCYTES Negative Normal NEGATIVE [facility] Comment on above: Performed By: #### E RUR #### [facility] [address] [place] [address] Dr. Steven Simon Nitrite Ql (U) Negative Normal NEGATIVE [facility] Comment on above: Performed By: #### E RUR #### [facility] [address] [place] [address] Dr. Steven Simon pH (U) 7.5 [pH] Normal 5-9 [facility] Comment on above: Performed By: #### E RUR #### [facility] [address] [place] [address] Dr. Steven Simon SPEC GRAVITY 1.015 Normal 1.005-<=1.025 [facility] Comment on above: Performed By: #### E RUR #### [facility] [address] [place] [address] Dr. Steven Simon UA PROTEIN Negative Normal NEGATIVE/ TRACE [facility] Comment on above: Performed By: #### E RUR #### [facility] [address] [place] [address] Dr. Steven Simon UR MICRO IND NOT INDICATED Normal [facility] Comment on above: Performed By: #### E RUR #### [facility] [address] [place] [address] Dr. Steven Simon Urobilinogen Qn (U) 0.2 {Claritza'U}/dL Normal 0.2 - 1. 0 [facility] Comment on above: Performed By: #### E RUR #### [facility] [address] [place] [address] Dr. Steven Simon Vital Signs Date Time Vital Sign Value Performing Clinician Facility 11-10-2024 09:56-0500 Body mass index (BMI) [Ratio] 35.5 kg/m2 Will Carson [employer] Work Phone: [facility] 11-10-2024 09:56-0500 Body weight 103.42 kg Will Alli DO Work Phone: [facility] 11-10-2024 09:56-0500 Diastolic blood pressure 78 mm[Hg] Will Alli DO Work Phone: [facility] 11-10-2024 09:56-0500 Systolic blood pressure 120 mm[Hg] Will Alli DO Work Phone: [facility] 10-22-2024 09:06-0500 Body height 170.7 cm Jayne Bianchi [employer] Work Phone: [facility] 10-22-2024 09:06-0500 Body mass index (BMI) [Ratio] 35.44 kg/m2 Jayne Arias [employer] Work Phone: [facility] 10-22-2024 09:06-0500 Body weight 103.24 kg Jayne Bianchi [employer] Work Phone: [facility] 10-22-2024 09:06-0500 Diastolic blood pressure 72 mm[Hg] Jayne Schriever [employer] Work Phone: [facility] 10-22-2024 09:06-0500 Heart rate 67 /min Jayne Arias [employer] Work Phone: [facility] 10-22-2024 09:06-0500 Respiratory rate 16 /min Jayne Schriever [employer]CIAL ACCOUNTANT Work Phone: [facility] 10-22-2024 09:06-0500 SaO2% (BldA) [Mass fraction] 96 % Jayne Arias [employer] Work Phone: [facility] 10-22-2024 09:06-0500 Systolic blood pressure 136 mm[Hg] Jayne Arias FIN[employer]CIAL ACCOUNTANT Work Phone: [facility] 10-15-2024 08:55-0500 Body height 170.7 cm Jayne Bianchi FINANCIAL ACCOUNTANT Work Phone: [facility] 10-15-2024 08:55-0500 Body mass index (BMI) [Ratio] 35.44 kg/m2 Jayne Arias FIN[employer]CIAL ACCOUNTANT Work Phone: [facility] 10-15-2024 08:55-0500 Body weight 103.24 kg Jayne Bianchi FINANCIAL ACCOUNTANT Work Phone: [facility] 10-15-2024 08:55-0500 Diastolic blood pressure 80 mm[Hg] Jayne Bianchi FINANCIAL ACCOUNTANT Work Phone: [facility] 10-15-2024 08:55-0500 Heart rate 67 /min Jayne Bianchi FINANCIAL ACCOUNTANT Work Phone: [facility] 10-15-2024 08:55-0500 Respiratory rate 17 /min Jayne Bianchi FIN[employer]CIAL ACCOUNTANT Work Phone: [facility] 10-15-2024 08:55-0500 SaO2% (BldA) [Mass fraction] 97 % Jayne Bianchi FINANCIAL ACCOUNTANT Work Phone: [facility] 10-15-2024 08:55-0500 Systolic blood pressure 124 mm[Hg] Jayne Bianchi FINANCIAL ACCOUNTANT Work Phone: [facility] 09-04-2024 11:43-0500 Body height 167.6 cm Julia Hemmer PA Work Phone: [facility] 09-04-2024 11:43-0500 Body mass index (BMI) [Ratio] 36.41 kg/m2 Julia Hemmer PA Work Phone: [facility] 09-04-2024 11:43-0500 Body weight 102.33 kg Julia Hemmer PA Work Phone: [facility] 09-04-2024 11:43-0500 Diastolic blood pressure 82 mm[Hg] Julia Hemmer PA Work Phone: [facility] 09-04-2024 11:43-0500 Heart rate 77 /min Julia Hemmer PA Work Phone: [facility] 09-04-2024 11:43-0500 Respiratory rate 16 /min Julia Hemmer PA Work Phone: [facility] 09-04-2024 11:43-0500 SaO2% (BldA) [Mass fraction] 97 % Julia Hemmer PA Work Phone: [facility] 09-04-2024 11:43-0500 Systolic blood pressure 118 mm[Hg] Julia Onofregigi PA Work Phone: [facility] 08-20-2024 09:49-0500 Body height 167.6 cm Michelle Cuenca PA Work Phone: [facility] 08-20-2024 09:49-0500 Body mass index (BMI) [Ratio] 36.48 kg/m2 Michelle Cuenca PA Work Phone: [facility] 08-20-2024 09:49-0500 Body weight 102.51 kg Michelle Cuenca PA Work Phone: [facility] 08-20-2024 09:49-0500 Diastolic blood pressure 88 mm[Hg] Michelle Cuenca PA Work Phone: [facility] 08-20-2024 09:49-0500 Heart rate 79 /min Michelle Cuenca PA Work Phone: [facility] 08-20-2024 09:49-0500 Respiratory rate 16 /min Michelle Cuenca PA Work Phone: [facility] 08-20-2024 09:49-0500 SaO2% (BldA) [Mass fraction] 97 % Michelle Cuenca PA Work Phone: [facility] 08-20-2024 09:49-0500 Systolic blood pressure 142 mm[Hg] Michelle Cuenca PA Work Phone: [facility] 07-21-2024 10:16-0400 Body height 167.6 cm Michelle Cuenca PA Work Phone: [facility] 07-21-2024 10:16-0400 Body mass index (BMI) [Ratio] 37.12 kg/m2 Michelle Cuenca PA Work Phone: [facility] 07-21-2024 10:16-0400 Body weight 104.33 kg Michelle Cuenca PA Work Phone: [facility] 07-21-2024 10:16-0400 Diastolic blood pressure 76 mm[Hg] Michelle Cuenca PA Work Phone: [facility] 07-21-2024 10:16-0400 Heart rate 71 /min Michelle Cuenca PA Work Phone: [facility] 07-21-2024 10:16-0400 Respiratory rate 16 /min Michelle Cuenca PA Work Phone: [facility] 07-21-2024 10:16-0400 SaO2% (BldA) [Mass fraction] 95 % Michelle Cuenca PA Work Phone: [facility] 07-21-2024 10:16-0400 Systolic blood pressure 106 mm[Hg] Michelle Cuenca PA Work Phone: [facility] 06-03-2024 13:34-0400 Body height 167.6 cm Celio Bronw MD Work Phone: [facility] 06-03-2024 13:34-0400 Body mass index (BMI) [Ratio] 37.41 kg/m2 Celio Brown MD Work Phone: [facility] 06-03-2024 13:34-0400 Body weight 105.14 kg Celio Brown MD Work Phone: [facility] 06-03-2024 13:34-0400 Diastolic blood pressure 76 mm[Hg] Celio Brown MD Work Phone: [facility] 06-03-2024 13:34-0400 Heart rate 76 /min Celio Brown MD Work Phone: [facility] 06-03-2024 13:34-0400 Systolic blood pressure 137 mm[Hg] Celio Brown MD Work Phone: [facility] 05-27-2024 14:03-0400 Body height 167.6 cm Erik Smith MD Work Phone: [facility] 05-27-2024 14:03-0400 Body mass index (BMI) [Ratio] 37.28 kg/m2 Erik Smith MD Work Phone: [facility] 05-27-2024 14:03-0400 Body weight 104.78 kg Erik Smith MD Work Phone: [facility] 05-27-2024 14:03-0400 Diastolic blood pressure 88 mm[Hg] Erik Smith MD Work Phone: [facility] 05-27-2024 14:03-0400 Heart rate 69 /min Erik Smith MD Work Phone: [facility] 05-27-2024 14:03-0400 SaO2% (BldA) [Mass fraction] 97 % Erik Smith MD Work Phone: [facility] 05-27-2024 14:03-0400 Systolic blood pressure 122 mm[Hg] Erik Smith MD Work Phone: [facility] Healthcare Encounters Encounter Date Encounter Type Care Provider Facility Start: 12-10-2024 End: 12-10-2024 ambulatory WILL ALLI Not Available Start: 12-09-2024 End: 12-11-2024 Refill Ramesh GUTIERRES Comment on above: Chronic low back mikael n, unspecified back pain laterality, unspecified whether sciatica present Start: 11-27-2024 End: 11-27-2024 ambulatory AMARILIS ALVARENGA Not Available Start: 11-24-2024 End: 11-24-2024 Bamboo flowsheet Amarilis Alvarenga MD Work Phone: [facility] Start: 11-24-2024 End: 11-24-2024 Bamboo flowsheet Amarilis Alvarenga MD Work Phone: [facility] Start: 11-24-2024 End: 11-24-2024 Postop follow up visit related to original px Amarilis Alvarenga MD Work Phone: [facility] Comment on above: Postoperative care f or cataract (Primary Dx) Start: 11-24-2024 End: 11-24-2024 ambulatory AMARILIS ALVARENGA Not Available Start: 11-10-2024 End: 11-10-2024 Bamboo flowsheet Will Alli DO Work Phone: [facility] Start: 11-10-2024 End: 11-10-2024 Bamboo flowsheet Will Alli DO Work Phone: [facility] Start: 11-10-2024 End: 11-10-2024 Office outpatient visit 15 minutes Will Alli DO Work Phone: [facility] Comment on above: Bleeding after inter course; Menopausal state Start: 11-10-2024 End: 11-10-2024 ambulatory WILL ALLI Not Available Start: 11-06-2024 End: 11-06-2024 Refill Ramesh MARTINI Comment on above: Chronic low back mikael n, unspecified back pain laterality, unspecified whether sciatica present Start: 11-03-2024 End: 11-03-2024 Bamboo flowsheet Amarilis Alvarenga MD Work Phone: [facility] Start: 11-03-2024 End: 11-03-2024 Bamboo flowsheet Amarilis Alvarenga MD Work Phone: [facility] Start: 11-03-2024 End: 11-03-2024 Postop follow up visit related to original px Amarilis Alvarenga MD Work Phone: [facility] Comment on above: Postoperative care f or cataract (Primary Dx) Start: 11-03-2024 End: 11-03-2024 ambulatory AMARILIS ALVARENGA Not Available Start: 10-23-2024 End: 10-23-2024 Patient encounter procedure Amarilis Alvarenga MD Work Phone: [facility] Comment on above: Mechanical ptosis of left eyelid (Primary Dx) Start: 10-23-2024 End: 10-23-2024 ambulatory AMARILIS ALVARENGA Not Available Start: 10-22-2024 End: 10-22-2024 Bamboo flowsheet Jayne Bianchi [employer]ANT Work Phone: [facility] Start: 10-22-2024 End: 10-22-2024 Bamboo flowsheet Jayne Bianchi FINANCIAL ACCOUNTANT Work Phone: [facility] Start: 10-22-2024 End: 10-22-2024 Office outpatient visit 25 minutes Jayne Bianchi [employer] Work Phone: [facility] Comment on above: Mixed hyperlipidemia (CMS/HCC) (Primary Dx); Major depressive disorder, recurrent, moderate (CMS/HCC); Bronchitis Start: 10-22-2024 End: 10-22-2024 ambulatory JAYNE BIANCHI Not Available Start: 10-15-2024 End: 10-15-2024 Bamboo flowsheet Jayne Bianchi FINANCIAL ACCOUNTANT Work Phone: [facility] Start: 10-15-2024 End: 10-15-2024 Bamboo flowsheet Jayne Bianchi FINANCIAL ACCOUNTANT Work Phone: [facility] Start: 10-15-2024 End: 10-15-2024 Office outpatient visit 25 minutes Jayne Bianchi [employer]CIAL ACCOUNTANT Work Phone: [facility] Comment on above: Bronchitis (Primary Dx); Morbid (severe) obesity due to excess calories (CMS/HCC); Essential (primary) hypertension (CMS/HCC); Body mass index (BMI) 36.0-36.9, adult Start: 10-15-2024 End: 10-15-2024 ambulatory JAYNE BIANCHI Not Available Start: 10-07-2024 ambulatory Isak Castillo Facility:[facility] Start: 10-01-2024 End: 10-01-2024 Estrellita GUTIERRES Comment on above: Chronic low back mikael n, unspecified back pain laterality, unspecified whether sciatica present Start: 09-04-2024 End: 09-04-2024 Bamboo flowsheet Julia FERRARO Work Phone: [facility] Start: 09-04-2024 End: 09-04-2024 Bamboo flowsheet Julia FERRARO Work Phone: [facility] Start: 09-04-2024 End: 09-04-2024 Patient encounter procedure Julia FERRARO Work Phone: [facility] Comment on above: Medicare annual well ness visit, subsequent (Primary Dx); ACP (advance care planning); Chronic bronchitis, unspecified chronic bronchitis type (CMS/HCC); Bilateral carpal tunnel syndrome; Cervicalgia; Disturbance of skin sensation; Lumbosacral radiculopathy; Median nerve neuropathy, unspecified laterality; Notalgia paresthetica; Post concussion syndrome; Moderate persistent asthma without complication (CMS/HCC); Panlobular emphysema (CMS/HCC); Essential hypertension (CMS/HCC); 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; Drug-induced adrenocortical insufficiency (CMS/HCC); Gastroesophageal reflux disease without esophagitis; History of gastritis; Irritable bowel syndrome, unspecified type; Pancreas, cyst, true (CMS/HCC); Serous cystadenoma of pancreas; DUB (dysfunctional uterine bleeding); Degenerative disc disease, cervical; Degeneration of intervertebral disc of lumbar region with discogenic back pain and lower extremity pain; Fibromyalgia; Myalgia; Pain in joint involving pelvic region and thigh, unspecified laterality; Acquired hypothyroidism (CMS/HCC); Morbid obesity (CMS/HCC); Type 2 diabetes mellitus with stage 2 chronic kidney disease, without long-term current use of insulin (CMS/HCC); Chronic glossitis; Chronic pansinusitis; Chronic reactive otitis externa of both ears; Infected sebaceous cyst; Abnormal CBC; Abnormal gait; Anxiety and depression (CMS/HCC); Benign paroxysmal positional vertigo due to bilateral vestibular disorder; Bilateral tinnitus; Mild episode of recurrent major depressive disorder (HCC) (CMS/HCC); Generalized anxiety disorder (CMS/HCC); History of TIA (transient ischemic attack); Chronic low back pain, unspecified back pain laterality, unspecified whether sciatica present; Meniere's disease of both ears; Menopause; Other rosacea; Pure hypercholesterolemia (CMS/HCC); Sensorineural hearing loss, bilateral; Smoker Start: 09-04-2024 End: 09-04-2024 ambulatory JULIA CHEN Not Available Start: 08-26-2024 End: 08-26-2024 Refill Ramesh Jose MA [facility] Comment on above: Chronic low back mikael n, unspecified back pain laterality, unspecified whether sciatica present Start: 08-20-2024 End: 08-20-2024 Office outpatient visit 15 minutes Michelle FERRARO Work Phone: [facility] [place] [facility] Comment on above: 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 discogenic back pain (Primary Dx); Encounter for drug therapy; Left arm pain; Neck pain; Vertigo Start: 08-20-2024 End: 08-20-2024 ambulatory MICHELLE CUENCA Not Available Start: 08-19-2024 End: 08-19-2024 ambulatory MADISON VIEIRA Not Available Start: 08-19-2024 End: 08-19-2024 Patient encounter procedure Madison Vieira MD Work Phone: [facility] [place] [facility] Comment on above: Left arm pain (Prima ry Dx); Carpal tunnel syndrome on both sides Start: 07-21-2024 End: 07-21-2024 Bamboo flowsheet Michelle FERRARO Work Phone: [facility] [place] [facility] Start: 07-21-2024 End: 07-21-2024 Bamboo flowsheet Michelle Cuenca PA Work Phone: [facility] [place] [facility] Start: 07-21-2024 End: 07-21-2024 Office outpatient visit 25 minutes Michelle FERRARO Work Phone: [facility] [place] [facility] Comment on above: Encounter for drug t herapy (Primary Dx); Degeneration of intervertebral disc of lumbar region with discogenic back pain; Hyper reflexia; Left arm pain; Neck pain Start: 07-21-2024 End: 07-21-2024 ambulatory MICHELLE CUENCA Not Available Start: 07-08-2024 End: 07-08-2024 Refill Ramesh Jose MA [facility] [place] [facility] Comment on above: Chronic low back mikael n, unspecified back pain laterality, unspecified whether sciatica present Start: 07-07-2024 End: 07-07-2024 ambulatory AMARILIS ALVARENGA Not Available Start: 07-07-2024 End: 07-07-2024 Bamboo flowsheet Amarilis Alvarenga MD Work Phone: [facility] Start: 07-07-2024 End: 07-07-2024 Bamboo flowsheet Amarilis Alvarenga MD Work Phone: [facility] Start: 06-04-2024 End: 06-04-2024 Telephone encounter Julia Chen PA Work Phone: [facility] Comment on above: Chronic low back mikael n, unspecified back pain laterality, unspecified whether sciatica present Start: 06-03-2024 End: 06-03-2024 ambulatory CELIO BROWN [facility] Start: 06-03-2024 End: 06-03-2024 Office consultation new/estab patient 40 min Celio Brown MD Work Phone: [facility]atob[facility]reatic [facility]ocrine [facility] Comment on above: Serous cystadenoma o f pancreas (Primary Dx) Start: 06-02-2024 ambulatory [facility] Start: 05-27-2024 End: 05-27-2024 Office outpatient visit 25 minutes Erik Smith MD Work Phone: [facility] Comment on above: Neoplasm of uncertai n behavior of head of pancreas (Primary Dx); Pancreas, cyst, true (CMS/HCC) Start: 05-27-2024 End: 05-27-2024 ambulatory ERIK SMITH Not Available Start: 05-13-2024 End: 05-13-2024 Telephone encounter Julia Chen PA Work Phone: [facility] Start: 05-05-2024 End: 05-05-2024 ambulatory JULIA CHEN Not Available Start: 04-28-2024 End: 04-28-2024 ambulatory MICHELLE CUENCA Not Available Start: 01-14-2024 End: 01-14-2024 ambulatory MICHELLEReggie CUENCA Not Available Start: 12-26-2023 End: 12-26-2023 ambulatory WILL CARSON Not Available Start: 12-25-2023 End: 12-25-2023 ambulatory JULIA CHEN Not Available Start: 12-21-2023 End: 12-21-2023 ambulatory JULIA CHEN Not Available Start: 10-29-2023 Chart abstracting Julia M Hemm er PA Work Phone: [facility] Start: 05-09-2023 End: 05-10-2023 ambulatory Dxa Block Facility:[facility] Start: 05-09-2023 End: 05-09-2023 Patient encounter procedure Dax Block [facility] Start: 08-11-2022 End: 08-12-[address] ERIK SMITH Facility:[facility] Start: 07-22-2022 End: 07-23-[address] HUMPHREY LORA Facility:[facility] Start: 04-20-2022 End: 04-21-2022 ambulatory Humphrey Ennis Facility:[facility] Start: 04-13-2022 End: 04-13-[address] HUMPHREY LORA Facility:[facility] Start: 02-10-2022 End: 02-10-[address] SALLIE WILLS Facility:[facility] Start: 12-29-2021 End: 12-30-[address] Madison Doty Facility:[facility] Start: 12-28-2021 End: 12-28-2021 ambulatory JAYNE BIANCHI Facility:[facility] Start: 09-26-2021 End: 09-27-[address] WILL CARSON Facility:[facility] Start: 09-14-2021 End: 09-15-[address] ERIK SMITH Facility:[facility] Start: 08-20-2021 End: 08-20-2021 ambulatory RAMONE OKEEFE Facility:[facility] Procedures Date Procedure Procedure Detail Performing Clinician Start: 08-20-2024 End: 08-20-2024 Needle emg ea extremty w/paraspinl area complete Michelle FERRARO Work Phone: Start: 07-07-2024 Visual field xm uni/ bi w/interpretj limited exam Amarilis Alvarenga MD Work Phone: Start: 07-07-2024 End: 07-07-2024 Ophth medical xm&eval compre new pt 1/> vst Mechanical ptosis of left eyelid Amarilis Alvarenga MD Work Phone: Comment on above: Mechanical ptosis of left eyelid (Primary Dx) Start: 07-26-2023 Mammography Julia FERRARO Work Phone: Start: 11-22-2020 Microscopic observat ion [Identifier] in Cervix by Cyto stain Julia FERRARO Work Phone: Start: 09-24-2011 History of hernia [...] Treatment Date Care Activity Detail Author Start: 10-23-2026 Glaucoma screening Diabetes: Retinopathy Screening [facility] Start: 07-07-2026 Glaucoma screening Diabetes: Retinopathy Screening [facility] Start: 05-11-2026 Screening for malignant neoplasm of colon [facility] Start: 11-22-2025 Screening for malignant neoplasm of cervix [facility] Start: 09-04-2025 Medicare Annual Wellness (AWV) Medicare Annual Wellness (AWV) [facility] Start: 06-03-2025 Adult BMI Screening Adult BMI Screening [facility] Start: 06-03-2025 Tobacco Screening Tobacco Screening [facility] Start: 04-21-2025 End: 10-22-2025 Lipid 1996 panel - Serum or Plasma Lipid panel Lab Routine Mixed hyperlipidemia (CMS/HCC) Expected: 04/21/2025 (Approximate), Expires: 10/22/2025 [facility] Work Phone: Comment on above: Expected: 04/21/2025 (Approximate), Expi res: 10/22/2025 Start: 12-24-2024 Urine screening for protein Diabetes: Urine Protein Screening [facility] Start: 12-17-2024 End: 12-17-2024 Patient encounter procedure 12/17/2024 9:40 AM EDT Office Visit [facility]UTIERR[facility] [address] [place] [address] Michelle Cuenca PA [address] [place] [address] [facility] Start: 12-10-2024 End: 12-10-2024 Patient encounter procedure 12/10/2024 11:30 AM EDT Consult [facility] [address] [place] [address] Will Carson DO [address] [facility] [address] [place] [address] [facility] Start: 12-10-2024 End: 12-10-2024 Professional / ancillary services management 12/10/2024 10:30 AM EDT Ancillary Procedure [facility] [address] [facility] [place] [address] [facility] Start: 11-24-2024 End: 11-24-2024 Patient encounter procedure 11/24/2024 9:15 AM EST Office Visit [facility] [address] [place] [address] Amarilis Alvarenga MD [address] [place] [address] Arrived [facility] Comment on above: Arrived Start: 11-10-2024 End: 11-10-2025 US Pelvis US Pelvis w/ TV Imaging Routine Bleeding after intercourse Menopausal state Expected: 11/10/2024, Expires: 11/10/2025 [facility] Work Phone: Comment on above: Expected: 11/10/2024, Expires: Start: 11-10-2024 End: 11-10-2024 Patient encounter procedure [facility] Comment on above: Arrived Start: 11-03-2024 End: 11-03-2024 Patient encounter procedure [facility] Comment on above: Arrived Start: 10-23-2024 End: 10-23-2024 Patient encounter procedure 10/23/2024 3:00 PM EST Procedure Visit [facility] [address] [place] [phone] Amarilis Alvarenga MD [address] [place] [address] [facility] Start: 10-22-2024 End: 10-22-2024 Patient encounter procedure 10/22/2024 9:00 AM EST Office Visit [facility] [address] [place] [address] Jayne Bianchi [employer] [address] [place] [address] Arrived [facility] Comment on above: Arrived Start: 10-15-2024 End: 10-15-2024 Patient encounter procedure 10/15/2024 9:00 AM EST Office Visit [facility] [address] [place] [address] Jayne Bianchi NP [address] [place] [address] Arrived [facility] Comment on above: Arrived Start: 10-02-2024 End: 10-02-2024 Patient encounter procedure 10/02/2024 2:30 PM EST Procedure Visit [facility] [address] [place] [address] Amarilis Alvarenga MD [address] [place] [address] [facility] Start: 09-04-2024 End: 09-04-2025 Lipid 1996 panel - Serum or Plasma Lipid panel Lab Routine Medicare annual wellness visit, subsequent Essential hypertension (CMS/HCC) Type 2 diabetes mellitus with stage 2 chronic kidney disease, without long-term current use of insulin (CMS/HCC) Pure hypercholesterolemia (CMS/HCC) Expected: 09/04/2024 (Approximate), Expires: 09/04/2025 [facility] Work Phone: Comment on above: Expected: 09/04/2024 (Approximate), Expi res: 09/04/2025 Start: 09-04-2024 End: 09-04-2024 Patient encounter procedure 09/04/2024 11:30 AM EST Office Visit [facility] [address] [place] [phone] Julia Chen PA [address] [place] [address] Arrived [facility] Comment on above: Arrived Start: 08-28-2024 End: 08-28-2024 Patient encounter procedure 08/28/2024 2:30 PM EST Procedure Visit [facility] [address] [place] [phone] Amarilis Alvarenga MD [address] [place], [place] [id number] [facility] Start: 08-20-2024 End: 08-20-2024 Patient encounter procedure 08/20/2024 10:00 AM EST Office Visit [facility] [place] [facility] [address] [place] [phone] Michelle Cuenca PA [address] [place] [address] [facility] [place] [facility] Start: 08-19-2024 End: 08-19-2024 Patient encounter procedure 08/19/2024 10:00 AM EST Procedure Visit [facility] [place] [facility] [address] [place] [phone] Madison Vieira MD [address] [place], [place] [id number] [facility] [place] [facility] Start: 08-05-2024 Hemoglobin A1c measurement Diabetes: Hemoglobin A1C [facility] Start: 07-26-2024 Screening for malignant neoplasm of breast Mammogram [facility] Start: 07-21-2024 End: 07-21-2025 EMG 2 Extremities EMG 2 Extremities Neurology Routine Left arm pain Expected: 07/21/2024 (Approximate), Expires: 07/21/2025 [facility] Comment on above: Expected: 07/21/2024 (Approximate), Expi res: 07/21/2025 Start: 07-21-2024 End: 07-21-2025 MR Cervical spine WO contrast MR cervical spine wo contrast Imaging Routine Hyper reflexia Left arm pain Neck pain Expected: 07/21/2024 (Approximate), Expires: 07/21/2025 [facility] Work Phone: Comment on above: Expected: 07/21/2024 (Approximate), Expi res: 07/21/2025 Start: 07-21-2024 End: 07-21-2024 Patient encounter procedure [facility] [place] [facility] Comment on above: Arrived Start: 07-07-2024 End: 07-07-2024 Patient encounter procedure 07/07/2024 2:15 PM EDT Office Visit [facility] [address] [place] [address] Amarilis Alvarenga MD [address] [place] [address] Arrived [facility] Comment on above: Arrived Start: 05-25-2024 COVID-19 Vaccine ( season) COVID-19 Vaccine () [facility] Start: 05-25-2024 Influenza vaccination [facility] Start: 04-16-2024 Medicare Annual Wellness (AWV) Medicare Annual Wellness (AWV) [facility] Start: 03-23-2024 Influenza vaccination Influenza Vaccine (#1) [facility] Comment on above: Postponed from 05/25/2023 (Patient Refus ed) Start: 11-23-2023 Screening for malignant neoplasm of cervix Pap Smear [facility] Start: 10-31-2023 Hemoglobin A1c measurement Diabetes: Hemoglobin A1C [facility] Start: 10-30-2023 End: 10-30-2023 Patient encounter procedure 10/30/2023 10:00 AM EST Office Visit [facility] [address] [facility] [address] [place] [phone] Julia Chen PA [address] [facility] [address] [place] [address] [facility] Start: 11-18-2019 Administration of varicella zoster vaccine Zoster (Shingles) Vaccine (2 of 2) [facility] Start: 1989 Screening for malignant neoplasm of cervix Pap Smear [facility] Start: 1987 DTaP,Tdap and Td Vaccines (1 - Tdap) DTaP,Tdap and Td Vaccines (1 - Tdap) [facility] Start: 1986 Adult BMI Follow Up Plan Adult BMI Follow Up Plan [facility] Start: 1980 Depression Screening Depression Screening [facility] Start: 1978 Glaucoma screening Diabetes: Retinopathy Screening [facility] Start: 1968 Screening for malignant neoplasm of colon [facility] Start: 1968 Tobacco Counseling Tobacco Counseling [facility] CHLAMYDIA TRACHOMATI S (GENITO/STI) CHLAMYDIA TRACHOMATIS (GENITO/STI) Lab Routine Bleeding after intercourse Ordered: 11/10/2024 [facility] Comment on above: Ordered: 11/10/2024 Neisseria gonorrhoea e DNA [Presence] in Unspecified specimen by TATIANA with probe detection Neisseria gonorrhea DNA probe, direct Lab Routine Bleeding after intercourse Ordered: 11/10/2024 [facility] Comment on above: Ordered: 11/10/2024 SURESWAB(R) ADVANCED VAGINITIS PLUS, TMA SURESWAB(R) ADVANCED VAGINITIS PLUS, TMA Pathology and Cytology Routine Bleeding after intercourse Ordered: 11/10/2024 [facility] Comment on above: Ordered: 11/10/2024 Immunizations Immunization Date Immunization Notes Care Provider Fadumo morocho 10-07-2019 pneumococcal conjuga te vaccine, 13 valent Julia FERRARO Work Phone: [facility] 09-23-2019 zoster vaccine recombinant Julia FERRARO Work Phone: [facility] 09-23-2019 zoster vaccine, unspecified formulation Celio Brown MD Work Phone: [facility] 03-09-2010 pneumococcal polysaccharide vaccine, 23 valent Julia FERRARO Work Phone: [facility] Payers Date Payer Category Payer Self-pay 2020 Medicaid [id number] 2006 Medicare [id number] 2006 Medicare [id number] 1968 Unknown [id number] 2.16.84 0.1.709284.3.579.2.593 1968 Unknown [id number] 2.16.84 0.1.193801.3.579.2.593 1968 Unknown [id number] 2.16.84 0.1.035082.3.579.2.593 1968 Unknown [id number] 2.16.84 0.1.099887.3.579.2.593 1968 Unknown [id number] 2.16.84 0.1.779878.3.579.2.593 1968 Unknown [id number] 2.16.84 0.1.885510.3.579.2.593 1968 Unknown [id number] 2.16.84 0.1.348581.3.579.2.593 1968 Unknown [id number] 2.16.84 0.1.151988.3.579.2.593 1968 Unknown [id number] 2.16.84 0.1.991240.3.579.2.593 1968 Unknown [id number] 2.16.84 0.1.701413.3.579.2.593 1968 Unknown [id number] 2.16.84 0.1.747111.3.579.2.593 1968 Unknown [id number] 2.16.8 40.1.060388.3.579.2.727 1968 Unknown [id number] 2.16.8 40.1.260949.3.579.2.1286 1968 Unknown [id number] 2.16.8 40.1.592318.3.579.2.1286 1968 Unknown [id number] 2.16.8 40.1.337292.3.579.2.1286 1968 Unknown [id number] 2.16.8 40.1.067099.3.579.2.1286 1968 Unknown [id number] 2.16.84 0.1.610430.3.579.2.1259 1968 Unknown [id number] 2.16.84 0.1.737834.3.579.2.125 1968 Unknown [id number] 2.16.84 0.1.865032.3.579.2.1259 1968 Unknown [id number] 2.16.84 0.1.166331.3.579.2.125 1968 Unknown [id number] 2.16.84 0.1.992176.3.579.2.1259 1968 Unknown [id number] 2.16.84 0.1.075884.3.579.2.1259 1968 Unknown [id number] 2.16.84 0.1.447169.3.579.2.1259 1968 Unknown [id number] 2.16.84 0.1.880902.3.579.2.125 1968 Unknown [id number] 2.16.84 0.1.435630.3.579.2.1259 1968 Unknown [id number] 2.16.84 0.1.574048.3.579.2.125 1968 Unknown [id number] 2.16.84 0.1.018429.3.579.2.1258 1968 Unknown [id number] 2.16.84 0.1.112028.3.579.2.1258 1968 Unknown [id number] 2.16.84 0.1.249067.3.579.2.1258 1968 Unknown [id number] 2.16.84 0.1.385143.3.579.2.1258 1968 Unknown [id number] 2.16.84 0.1.168555.3.579.2.1258 1968 Unknown [id number] 2.16.84 0.1.281326.3.579.2.1258 1968 Unknown [id number] 2.16.84 0.1.632575.3.579.2.1258 1968 Unknown [id number] 2.16.84 0.1.534024.3.579.2.1258 1968 Unknown [id number] 2.16.84 0.1.477783.3.579.2.1258 1968 Unknown [id number] 2.16.84 0.1.073355.3.579.2.1258 1968 Unknown [id number] 2.16.84 0.1.740011.3.579.2.1258 1968 Unknown [id number] 2.16.84 0.1.855689.3.579.2.1259 1961 Medicaid [id number] 1961 Medicare [id number] Unknown [id number] 2.16.8 40.1.913276.3.579.2.531 Social History Date Type Detail Facility Start: 03-16-2020 Tobacco smoking status Heavy t obacco smoker (finding) [facility] Start: 09-03-2023 End: 04-03-2024 Sex Assigned At Female [facility] Start: 04-18-2023 End: 06-03-2024 Tobacco smoking status LAIS Smokes tobacco daily [facility] History of tobacco use Cigarette Smoker [facility] Start: 04-18-2023 End: 04-26-2024 Tobacco use and exposure Smokeless tobacco non-user [facility] Start: 09-03-2023 End: 12-09-2024 Alcohol intake Ex-drinker (finding) [facility] Start: 09-03-2023 End: 04-03-2024 History of Social function [facility] Start: 04-15-2023 Tobacco Comment 5 or less cigs/day [facility] Start: 1970 Sex Assigned At Not on file [facility] Start: 04-26-2024 Tobacco smoking stat [facility] Ex-smoker [facility] History of tobacco use Current smoker [facility] How often do you nee d to have someone help you when you read instructions, pamphlets, or other written material from your doctor or pharmacy [SILS] Never [facility] Work Phone: How often to you hav e a drink containing alcohol? Never [facility] How hard is it for y ou to pay for the very basics like food, housing, medical care, and heating Not very hard [facility] Do you feel stress - tense, restless, nervous, or anxious, or unable to sleep at night because your mind is troubled all the time - these days [OSQ] Only a little [facility] (I/We) worried wheth er (my/our) food would run out before (I/we) got money to buy more. Never true [facility] Start: 06-03-2024 Alcoholic beverage intake Lifetime non-drinker (finding) [facility] Medical Equipment Procedure Code Equipment Code Equipment Original Text Equi pment Identifier Dates 1 each by Other route 1 (one) time each day. [id number] Clinical Notes 05-13-2024 to 12-09-2024 Telephone Encounter - Ramesh Jose MA - 12/09/2024 2:58 PM EDTTelephone Encounter - Ramesh Jose MA - 12/09/2024 2:58 PM Jes Alvarenga MD - 11/24/2024 9:15 AM EST Note Date & Type Note Facility 12-09-2024 Telephone encounter Note OARRS reviewed due now [facility] 12-09-2024 Miscellaneous Notes OARRS reviewed due now documented in this encounter [facility] 11-24-2024 History of Present illness Narrative Assessment/Plan undercorrected documented in this encounter [facility] 11-10-2024 History of Present illness Narrative Reason for Appointment: Patient ID: Keith Washington is a 54 y.o. female who presents for Menopause and bleeding with intercourse Patient presents today for Consult appointment. MEDICATIONS Current Outpatient Medications Medication Instructions atenolol (TENORMIN) 50 mg, Oral, Daily clonazePAM (KlonoPIN) 1 MG tablet 1 tablet, 3 times daily DSS 100 mg, Every 12 hours PRN escitalopram (Lexapro) 20 MG tablet 1 tablet, Daily fluticasone (Flonase) 50 MCG/ACT nasal spray 1 spray, Every 24 hours FREESTYLE LITE test strip 1 each, Daily ibuprofen 800 MG tablet PRN ipratropium-albuterol (Duo-Neb) 0.5-2.5 mg/3 mL nebulizer solution 3 mL, Every 6 hours Jardiance 10 mg, Oral, Daily KLOR-CON 20 MEQ ER tablet 20 mEq, Oral, Daily Lactobacillus-Inulin (CULTURELLE DIGESTIVE DAILY PO) 1 tablet, Daily levothyroxine (Synthroid, Levoxyl) 75 MCG tablet TAKE 1 TABLET BY MOUTH ONCE EVERY MORNING ON AN EMPTY STOMACH meclizine (ANTIVERT) 25 mg, Oral, Daily PRN meloxicam (Mobic) 15 MG tablet 1 tablet, Every 24 hours Multiple Vitamin (multivitamin) tablet 1 tablet, Daily omeprazole (PRILOSEC) 20 mg, Oral, Daily before breakfast ondansetron (ZOFRAN) 4 mg, Oral, Every 12 hours PRN oxyCODONE-acetaminophen (Percocet) 5-325 MG tablet 1 tablet, Oral, Every 12 hours, PRN due now Red Yeast Rice Extract (RED YEAST RICE PO) 1 tablet, Daily Tirzepatide 5 mg, Subcutaneous, Weekly tiZANidine (Zanaflex) 4 MG tablet 1 tablet, Every 8 hours PRN Umeclidinium-Vilanterol (Anoro Ellipta) 62.5-25 MCG/ACT aerosol powder 1 puff, Inhalation, Every 24 hours Ventolin HFA 108 (90 Base) MCG/ACT inhaler 1 puff, Every 4 hours PRN ALLERGIES Allergies Allergen Reactions Morphine Unknown Nitrofurantoin Unknown Nitrofurantoin Macrocrystal Unknown Cephalexin Rash Moxifloxacin Rash PROBLEMS Active Ambulatory Problems Diagnosis Date Noted Essential hypertension ([facility]) 03/31/2023 Generalized anxiety disorder ([facility]) 03/31/2023 Chronic obstructive pulmonary disease ([facility]) 03/31/2023 Pulmonary emphysema ([facility]) 03/31/2023 Pure hypercholesterolemia ([facility]) 03/31/2023 Sensorineural hearing loss, bilateral 03/31/2023 Smoker 03/31/2023 Type 2 diabetes mellitus with diabetic chronic kidney disease ([facility]) 03/31/2023 Abnormal gait 04/15/2023 Acquired hypothyroidism ([facility]) 02/28/2008 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 Bilateral tinnitus 04/15/2023 Chronic reactive otitis externa of both ears 04/15/2023 Drug-induced adrenocortical insufficiency ([facility]) 04/15/2023 DUB (dysfunctional uterine bleeding) 04/15/2023 Irritable colon 04/07/2008 Meniere's disease 04/15/2023 Morbid obesity ([facility]) 04/15/2023 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 Other rosacea 04/15/2023 Pancreas, cyst, true ([facility]) 04/15/2023 Low back pain 02/28/2008 Chronic pansinusitis 03/21/2019 Moderate persistent asthma without complication ([facility]) 04/16/2023 History of gastritis 04/16/2023 Bilateral carpal tunnel syndrome 04/24/2023 Chronic glossitis 05/16/2023 Myalgia 07/04/2023 Depression (CMS/[facility]) 07/31/2023 GERD (gastroesophageal reflux disease) 07/31/2023 History of TIA (transient ischemic attack) 07/31/2023 Infected sebaceous cyst 07/31/2023 Abnormal CBC 12/25/2023 Menopause 12/25/2023 Cervicalgia 04/26/2024 Fibromyalgia 04/26/2024 Pain in joint, pelvic region and thigh 04/26/2024 Benign paroxysmal positional vertigo 04/26/2024 Lumbosacral radiculopathy 04/26/2024 Anxiety and depression ([facility]/HCC) 04/26/2024 Degenerative disc disease, lumbar 04/26/2024 Degenerative disc disease, cervical 04/26/2024 Disturbance of skin sensation 04/26/2024 Median neuropathy 04/26/2024 Post concussion syndrome 04/26/2024 Serous cystadenoma of pancreas 06/03/2024 Resolved Ambulatory Problems Diagnosis Date Noted Stage 3a chronic kidney disease (HCC) ([facility]) 03/31/2023 Acute gastritis 02/28/2008 Anxiety state ([facility]) 02/28/2008 Asthma with exacerbation ([facility]) 02/28/2008 Benign neoplasm of skin 09/27/2009 Abdominal muscle pain 02/28/2008 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 Pansinusitis 04/15/2023 Swelling of vagina 04/15/2023 Abnormal vaginal bleeding 07/26/2016 Antidepressants causing adverse effect in therapeutic use 11/22/2015 Diabetic renal disease ([facility]) 10/18/2017 Dizziness 11/22/2015 Moderate episode of recurrent major depressive disorder ([facility]) 11/22/2015 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 Myopathy 07/26/2023 BMI 45.0-49.9, adult ([facility]) 07/31/2023 Transient alteration of awareness 04/26/2024 Vertigo 04/26/2024 Back pain 04/26/2024 Brachial neuritis or radiculitis 04/26/2024 Carpal tunnel syndrome 04/26/2024 Backache 04/26/2024 Past Medical History: Diagnosis Date Alteration of awareness Anxiety Asthma ([facility]) Chest pain Confusion 04/01/2015 COPD (chronic obstructive pulmonary disease) ([facility]) Diabetes mellitus ([facility]) Diarrhea Disease of thyroid gland (CMS/[facility]) Dyspnea Gallbladder disease Genital herpes History of psychiatric hospitalization Liver disease Liver lesion Pancreas cyst (CMS/HCC) Rotavirus infection Syncope Tooth abscess Transient ischemic attack (TIA) Vomiting HISTORY PAST MEDICAL HISTORY SOCIAL HISTORY Past Medical History: Diagnosis Date Alteration of awareness Antidepressants causing adverse effect in therapeutic use 11/22/2015 Anxiety Asthma (CMS/HCC) 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 Carpal tunnel syndrome Chest pain Confusion 04/01/2015 and weakness COPD (chronic obstructive pulmonary disease) (CMS/HCC) Degenerative disc disease, cervical Degenerative disc disease, lumbar Depression (CMS/HCC) Diabetes mellitus (CMS/HCC) Diarrhea Disease of thyroid gland (CMS/HCC) Dyspnea Fibromyalgia Gallbladder disease Genital herpes History of psychiatric hospitalization psych admission 08/2015, 07/2015 Liver disease Liver lesion Lumbosacral radiculopathy Pancreas cyst (CMS/HCC) Rotavirus infection Stage 3a chronic kidney disease (HCC) (CMS/HCC) 03/31/2023 Syncope Tooth abscess Transient alteration of awareness 04/26/2024 Transient ischemic attack (TIA) Vertigo Vomiting Social History Tobacco Use Smoking status: Former Types: Cigarettes Smokeless tobacco: Never Tobacco comments: 5 or less cigs/day Vaping Use Vaping status: Unknown Substance Use Topics Alcohol use: Not Currently Drug use: Yes Types: Oxycodone FAMILY HISTORY Family History Problem Relation Name Age of Onset Thyroid disease Mother Heart disease Father Clotting disorder Father Colon cancer Maternal Grandmother Heart disease Maternal Grandfather Other (fall) Paternal Grandmother SURGICAL HISTORY Past Surgical History: Procedure Laterality Date BACK SURGERY 2004 BIOPSY / EXCISION / DRAINAGE PANCREATIC CYST 05/15/2016 CARDIAC CATHETERIZATION SECTION, LOW TRANSVERSE 1991 CHOLECYSTECTOMY 2007 EKG 2011 syncope EYE SURGERY LIVER BIOPSY 2007 OTHER SURGICAL HISTORY 2008 YVF, Normal K+ OTHER SURGICAL HISTORY 1993 r/o sinus polpys WRIST SURGERY 06/06/2023 [facility]- MTP REVIEW OF SYSTEMS Review of Systems: Review of Systems Genitourinary: Positive for pelvic pain and vaginal bleeding. All other systems reviewed and are negative. OBJECTIVE Objective: Physical Exam Constitutional: Appearance: Normal appearance. She is well-developed. Genitourinary: Vulva normal. Cardiovascular: Rate and Rhythm: Normal rate and regular rhythm. Pulmonary: Effort: Pulmonary effort is normal. Breath sounds: Normal breath sounds. Abdominal: General: Bowel sounds are normal. There is no distension. Palpations: Abdomen is soft. Tenderness: There is no abdominal tenderness. There is no guarding or rebound. Musculoskeletal: General: No swelling. Normal range of motion. Right lower leg: No edema. Left lower leg: No edema. Neurological: Mental Status: She is alert and oriented to person, place, and time. Skin: General: Skin is warm and dry. Psychiatric: Mood and Affect: Mood normal. Behavior: Behavior normal. Vitals and nursing note reviewed. Exam conducted with a echocardiography tech present. Vitals: Estimated body mass index is 35.5 kg/m as calculated from the following: Height as of 10/22/24: 5' 7.2 . Weight as of this encounter: 228 lb. BP: 120/78 No LMP recorded. Patient is premenopausal. ASSESSMENT & PLAN Patient presents to office today for bleeding with intercourse. Patient has complaints of menopausal symptoms of vaginal dryness. Patient stated that she has NOT had a cycle since October 2022. In April 2023 patient had intercourse for the first time in several years with pain and vaginal spotting. Patient stated that she tried to have intercourse again May 2024 and intercourse was still painful. Patient stated she then began to have intercourse about a month ago and it is still painful with spotting and unable to complete task. Discussed with patient using Estrace vaginally to help with post menopausal vaginal dryness and painful intercourse. Also, Discussed with patient performing D&C. Patient given ultrasound order to have obtained and patient to schedule with Senior Materials Analyst prior to leaving office. Obtained vaginal cultures today. Patient also voiced that she has issues of constipation since starting Mounjaro. Advised patient to start taking stool softener to help with symptoms. Patient voiced that she has to digitally remove stool sometimes. Patient to return to clinic for pre-op appointment. Visual hemorrhoid noted and no other abnormalities noted on rectal exam. Patient to return to clinic as directed for pre-op. Documented by Nel Delgadillo LPN on behalf of: Will Carson DO documented in this encounter [facility] 11-06-2024 Telephone encounter Note 08/20/2024 Continue Percocet 5mg PO BID PRN for intractable pain related to lumbar degenerative spine disease. She is spacing out dosing and lasting longer than 30 days. Oarrs reviewed due now [facility] 11-06-2024 Miscellaneous Notes 08/20/2024 Continue Percocet 5mg PO BID PRN for intractable pain related to lumbar degenerative spine disease. She is spacing out dosing and lasting longer than 30 days. Oarrs reviewed due now documented in this encounter [facility] 11-03-2024 History of Present illness Narrative Assessment/Plan suture removal done documented in this encounter [facility] 10-23-2024 History of Present illness Narrative proAssessment/Plan The patient was prepped and draped in usual sterile fashion. Anesthesia 2% lidocaine with epi delivered with 30 g needle, about 1.5cc total. The lid marked at the upper lid crease about 6mm superior to lid margin. Skin opened with scalpel for 13mm, muscle opened to expose pre-levator fat pad. Careful dissection revealed levator detached from tarsus. Anterior surface of tarsus dissected clean, 6-0 mersilene suture passed through and brought up at level of Whitnall's ligament. Another suture passed so that the two sutures were at the lateral limbal margins, brought superior to same ligament, temporarily tied and the lid level checked. Suture tied permanent after noting the lid at the superior limbal margin. Skin closed with 6-0 nylon taking note to chart picker portion of the levator with each pass. Ice pack applied for ten minutes, Tobradex ointment applied. Patient returned to waiting area in good condition. documented in this encounter [facility] 10-22-2024 History of Present illness Narrative Images from the original note were not included. Subjective Patient ID: Keith Washington is a 54 y.o. female who presents for F/U from having bronchitis. Keith presents today for a F/U from having bronchitis. She would also like to talk about cholesterol medication. Current Outpatient Medications on File Prior to Visit Medication Sig Dispense Refill atenolol (Tenormin) 50 MG tablet TAKE 1 TABLET BY MOUTH EVERY DAY 100 tablet 3 [] azithromycin (Zithromax) 250 MG tablet Take 2 tablets (500 mg) by mouth Daily for 1 day, THEN 1 tablet (250 mg) Daily for 4 days. 6 tablet 0 clonazePAM (KlonoPIN) 1 MG tablet Take 1 tablet by mouth in the morning and 1 tablet in the evening and 1 tablet before bedtime. Docusate Sodium (DSS) 100 MG capsule Take 100 mg by mouth every 12 (twelve) hours if needed. empagliflozin (Jardiance) 10 MG TAKE 1 TABLET BY MOUTH EVERY DAY FOR 90 DAYS 100 tablet 3 escitalopram (Lexapro) 20 MG tablet Take 1 tablet by mouth 1 (one) time each day. fluticasone (Flonase) 50 MCG/ACT nasal spray 1 spray 1 (one) time each day at the same time PRN FREESTYLE LITE test strip 1 each by Other route 1 (one) time each day. ibuprofen 800 MG tablet PRN ipratropium-albuterol (Duo-Neb) 0.5-2.5 mg/3 mL nebulizer solution Take 3 mL by nebulization every 6 (six) hours. PRN KLOR-CON 20 MEQ ER tablet TAKE 1 TABLET BY MOUTH EVERY DAY 100 tablet 3 Lactobacillus-Inulin (CULTURELLE DIGESTIVE DAILY PO) Take 1 tablet by mouth 1 (one) time each day levothyroxine (Synthroid, Levoxyl) 75 MCG tablet TAKE 1 TABLET BY MOUTH ONCE EVERY MORNING ON AN EMPTY STOMACH 100 tablet 3 meclizine (Antivert) 25 MG tablet Take 1 tablet (25 mg) by mouth Daily as needed for nausea 30 tablet 2 meloxicam (Mobic) 15 MG tablet Take 1 tablet by mouth 1 (one) time each day at the same time PRN Multiple Vitamin (multivitamin) tablet Take 1 tablet by mouth Daily omeprazole (PriLOSEC) [address] capsule Take 1 capsule (20 mg) by mouth in the morning. Take before meals. 100 capsule 3 ondansetron (Zofran) 4 MG tablet Take 1 tablet (4 mg) by mouth every 12 (twelve) hours if needed for nausea 20 tablet 2 oxyCODONE-acetaminophen (Percocet) 5-325 MG tablet Take 1 tablet by mouth every 12 (twelve) hours PRN due now 60 tablet 0 [] predniSONE (Deltasone) 20 MG tablet Take 1 tablet (20 mg) by mouth Daily for 5 days 5 tablet 0 Red Yeast Rice Extract (RED YEAST RICE PO) Take 1 tablet by mouth Daily Tirzepatide 5 MG/0.5ML solution pen-injector Inject 5 mg under the skin 1 (one) time per week 2 mL 2 tiZANidine (Zanaflex) 4 MG tablet Take 1 tablet by mouth every 8 (eight) hours if needed for muscle spasms. Umeclidinium-Vilanterol (Anoro Ellipta) 62.5-25 MCG/ACT aerosol powder Inhale 1 puff 1 (one) time each day at the same time 1 each 5 Ventolin HFA 108 (90 Base) MCG/ACT inhaler Inhale 1 puff every 4 (four) hours if needed for wheezing or shortness of breath. No current facility-administered medications on file prior to visit. I have reviewed and reconciled the history and medication list with the patient today. Allergies Allergen Reactions Morphine Unknown Nitrofurantoin Unknown Nitrofurantoin Macrocrystal Unknown Cephalexin Rash Moxifloxacin Rash Social History Tobacco Use Smoking status: Former Types: Cigarettes Smokeless tobacco: Never Tobacco comments: 5 or less cigs/day Vaping Use Vaping status: Unknown Substance Use Topics Alcohol use: Not Currently Drug use: Yes Types: Oxycodone Family History Problem Relation Name Age of Onset Thyroid disease Mother Heart disease Father Clotting disorder Father Colon cancer Maternal Grandmother Heart disease Maternal Grandfather Other (fall) Paternal Grandmother Past Medical History: Diagnosis Date Alteration of awareness Antidepressants causing adverse effect in therapeutic use 11/22/2015 Anxiety Asthma ([facility]/HCC) 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 Carpal tunnel syndrome Chest pain Confusion 04/01/2015 and weakness COPD (chronic obstructive pulmonary disease) (CMS/HCC) Degenerative disc disease, cervical Degenerative disc disease, lumbar Depression (CMS/HCC) Diabetes mellitus (CMS/HCC) Diarrhea Disease of thyroid gland (CMS/HCC) Dyspnea Fibromyalgia Gallbladder disease Genital herpes History of psychiatric hospitalization psych admission 08/2015, 07/2015 Liver disease Liver lesion Lumbosacral radiculopathy Pancreas cyst (CMS/HCC) Rotavirus infection Stage 3a chronic kidney disease (HCC) (CMS/HCC) 03/31/2023 Syncope Tooth abscess Transient alteration of awareness 04/26/2024 Transient ischemic attack (TIA) Vertigo Vomiting Past Surgical History: Procedure Laterality Date BACK SURGERY 2004 BIOPSY / EXCISION / DRAINAGE PANCREATIC CYST 05/15/2016 CARDIAC CATHETERIZATION SECTION, LOW TRANSVERSE 1991 CHOLECYSTECTOMY 2007 EKG 2012 syncope LIVER BIOPSY 2007 OTHER SURGICAL HISTORY 2008 YVF, Normal K+ OTHER SURGICAL HISTORY 1993 r/o sinus polpys WRIST SURGERY 06/06/2023 [facility]- [facility] Visit Vitals OB Status Having periods Smoking Status Former Review of Systems Constitutional: Negative. HENT: Negative. Eyes: Negative. Respiratory: Positive for cough and wheezing. Cardiovascular: Negative. Gastrointestinal: Negative. Genitourinary: Negative. Skin: Negative. Neurological: Negative. Psychiatric/Behavioral: Negative. Objective Physical Exam Vitals reviewed. Constitutional: Appearance: Normal appearance. HENT: Head: Normocephalic. Mouth/Throat: Mouth: Mucous membranes are moist. Pharynx: Oropharynx is clear. Cardiovascular: Rate and Rhythm: Normal rate and regular rhythm. Pulmonary: Effort: Pulmonary effort is normal. Breath sounds: Wheezing present. Skin: General: Skin is warm and dry. Neurological: General: No focal deficit present. Mental Status: She is alert and oriented to person, place, and time. Psychiatric: Mood and Affect: Mood normal. Behavior: Behavior normal. Thought Content: Thought content normal. Assessment/Plan Diagnoses and all orders for this visit: Mixed hyperlipidemia (CMS/HCC) - Lipid panel; Future Will recheck lipids in 6 months. Pt is starting to go to the gym. Discussed how exercise and reducing tobacco use will reduce the LDL. Explained that the exercise will increase the HDL. She declines a statin at this time. Major depressive disorder, recurrent, moderate (CMS/HCC) Medication as directed. Verbalizes understanding of the need to be seen in the ER for suicidal/homicidal ideation, excessive stress, elevated blood pressure or palpitations. Pt offers understanding of treatment plan. I discussed the side effects of the medications described and to seek medical care if they arise. Discussed stress mgmt strategies, social support and importance of healthy diet, exercise and regular sleep habits. Advised on relaxation methods to decrease anxiety and depression. Bronchitis This condition has resolved since last week. No follow-ups on file. documented in this encounter [facility] 10-15-2024 History of Present illness Narrative Images from the original note were not included. Subjective Patient ID: Keith Washington is a 54 y.o. female who presents for a cough and sinus congestion. Keith presents today for a cough and sinus congestion. For the last 3 weeks. She was put on an antibiotic and a steroid back in August. She went to the ER and she tested negative for the flu and Covid, they did a chest Xray and that was negative. She is still tired and has the cough. URI This is a new problem. The current episode started more than 1 month ago. The problem has been waxing and waning. The maximum temperature recorded prior to her arrival was 101 - 101.9 F. Associated symptoms include coughing. Associated symptoms comments: Moist cough brown/green drainage. She has tried nothing (steroids) for the symptoms. The treatment provided mild relief. Current Outpatient Medications on File Prior to Visit Medication Sig Dispense Refill atenolol (Tenormin) 50 MG tablet TAKE 1 TABLET BY MOUTH EVERY DAY 100 tablet 3 clonazePAM (KlonoPIN) 1 MG tablet Take 1 tablet by mouth in the morning and 1 tablet in the evening and 1 tablet before bedtime. Docusate Sodium (DSS) 100 MG capsule Take 100 mg by mouth every 12 (twelve) hours if needed. empagliflozin (Jardiance) 10 MG TAKE 1 TABLET BY MOUTH EVERY DAY FOR 90 DAYS 100 tablet 3 escitalopram (Lexapro) 20 MG tablet Take 1 tablet by mouth 1 (one) time each day. fluticasone (Flonase) 50 MCG/ACT nasal spray 1 spray 1 (one) time each day at the same time PRN FREESTYLE LITE test strip 1 each by Other route 1 (one) time each day. ibuprofen 800 MG tablet PRN ipratropium-albuterol (Duo-Neb) 0.5-2.5 mg/3 mL nebulizer solution Take 3 mL by nebulization every 6 (six) hours. PRN KLOR-CON 20 MEQ ER tablet TAKE 1 TABLET BY MOUTH EVERY DAY 100 tablet 3 Lactobacillus-Inulin (CULTURELLE DIGESTIVE DAILY PO) Take 1 tablet by mouth 1 (one) time each day levothyroxine (Synthroid, Levoxyl) 75 MCG tablet TAKE 1 TABLET BY MOUTH ONCE EVERY MORNING ON AN EMPTY STOMACH 100 tablet 3 meclizine (Antivert) 25 MG tablet Take 1 tablet (25 mg) by mouth Daily as needed for nausea 30 tablet 2 meloxicam (Mobic) 15 MG tablet Take 1 tablet by mouth 1 (one) time each day at the same time PRN Multiple Vitamin (multivitamin) tablet Take 1 tablet by mouth Daily omeprazole (PriLOSEC) [address] capsule Take 1 capsule (20 mg) by mouth in the morning. Take before meals. 100 capsule 3 ondansetron (Zofran) 4 MG tablet Take 1 tablet (4 mg) by mouth every 12 (twelve) hours if needed for nausea 20 tablet 2 oxyCODONE-acetaminophen (Percocet) 5-325 MG tablet Take 1 tablet by mouth every 12 (twelve) hours PRN due now 60 tablet 0 Red Yeast Rice Extract (RED YEAST RICE PO) Take 1 tablet by mouth Daily Tirzepatide 5 MG/0.5ML solution pen-injector Inject 5 mg under the skin 1 (one) time per week 2 mL 2 tiZANidine (Zanaflex) 4 MG tablet Take 1 tablet by mouth every 8 (eight) hours if needed for muscle spasms. Umeclidinium-Vilanterol (Anoro Ellipta) 62.5-25 MCG/ACT aerosol powder Inhale 1 puff 1 (one) time each day at the same time 1 each 5 Ventolin HFA 108 (90 Base) MCG/ACT inhaler Inhale 1 puff every 4 (four) hours if needed for wheezing or shortness of breath. No current facility-administered medications on file prior to visit. I have reviewed and reconciled the history and medication list with the patient today. Allergies Allergen Reactions Azithromycin Unknown Corticosteroids Unknown Morphine Unknown Nitrofurantoin Unknown Nitrofurantoin Macrocrystal Unknown Cephalexin Rash Moxifloxacin Rash Social History Tobacco Use Smoking status: Former Types: Cigarettes Smokeless tobacco: Never Tobacco comments: 5 or less cigs/day Vaping Use Vaping status: Unknown Substance Use Topics Alcohol use: Not Currently Drug use: Yes Types: Oxycodone Family History Problem Relation Name Age of Onset Thyroid disease Mother Heart disease Father Clotting disorder Father Colon cancer Maternal Grandmother Heart disease Maternal Grandfather Other (fall) Paternal Grandmother Past Medical History: Diagnosis Date Alteration of awareness Antidepressants causing adverse effect in therapeutic use 11/22/2015 Anxiety Asthma (CMS/HCC) 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 Carpal tunnel syndrome Chest pain Confusion 04/01/2015 and weakness COPD (chronic obstructive pulmonary disease) (CMS/HCC) Degenerative disc disease, cervical Degenerative disc disease, lumbar Depression (CMS/HCC) Diabetes mellitus (CMS/HCC) Diarrhea Disease of thyroid gland (CMS/HCC) Dyspnea Fibromyalgia Gallbladder disease Genital herpes History of psychiatric hospitalization psych admission 08/2015, 07/2015 Liver disease Liver lesion Lumbosacral radiculopathy Pancreas cyst (CMS/HCC) Rotavirus infection Stage 3a chronic kidney disease (HCC) (CMS/HCC) 03/31/2023 Syncope Tooth abscess Transient alteration of awareness 04/26/2024 Transient ischemic attack (TIA) Vertigo Vomiting Past Surgical History: Procedure Laterality Date BACK SURGERY 2004 BIOPSY / EXCISION / DRAINAGE PANCREATIC CYST 05/15/2016 CARDIAC CATHETERIZATION SECTION, LOW TRANSVERSE 1991 CHOLECYSTECTOMY 2007 EKG 2011 syncope LIVER BIOPSY 2007 OTHER SURGICAL HISTORY 2007 YVF, Normal K+ OTHER SURGICAL HISTORY 1993 r/o sinus polpys WRIST SURGERY 06/06/2023 [facility]- [facility]TP Visit Vitals OB Status Having periods Smoking Status Former Review of Systems Respiratory: Positive for cough. Objective Physical Exam Vitals reviewed. Constitutional: Appearance: Normal appearance. HENT: Head: Normocephalic. Nose: Nose normal. Mouth/Throat: Mouth: Mucous membranes are moist. Pharynx: Oropharynx is clear. Eyes: Conjunctiva/sclera: Conjunctivae normal. Cardiovascular: Rate and Rhythm: Normal rate and regular rhythm. Pulmonary: Breath sounds: Wheezing and rhonchi present. Skin: General: Skin is warm and dry. Neurological: General: No focal deficit present. Mental Status: She is alert and oriented to person, place, and time. Psychiatric: Mood and Affect: Mood normal. Behavior: Behavior normal. Assessment/Plan Diagnoses and all orders for this visit: Bronchitis - azithromycin (Zithromax) 250 MG tablet; Take 2 tablets (500 mg) by mouth Daily for 1 day, THEN 1 tablet (250 mg) Daily for 4 days. - predniSONE (Deltasone) 20 MG tablet; Take 1 tablet (20 mg) by mouth Daily for 5 days Start the above medications as directed. Advised of potential side effects of the steroid. Patient is to take the steroid with food. Can take Tessalon Perles prn for cough. Increase water intake, get plenty of rest. Can take Tylenol prn for any discomfort or fever. No other anti-inflammatories while on steroid. Cough into elbow. Wash hands often. Advised patient that cough can linger with bronchitis. Follow up in our office if no improvement in one week. Morbid (severe) obesity due to excess calories (CMS/HCC) Goal of BMI < 30. Advised on weight loss options. Encourage diet and exercise. Appropriate lifestyle modification changes necessary for weight management, heart healthy eating and overall health promotion. Minimize high carb, high sugar, high sodium, portion control, and processed foods while making healthy choice replacements. Additionally discussed recommendations of 30 minutes of aerobic exercise at least 5 days per week, that includes, walking, and chair exercises. . Instructed importance of drinking adequate water consumption (if not on fluid restriction) with minimal sugar and caffiene. Essential (primary) hypertension (CMS/HCC) Patient's blood pressure is currently well controlled. Continue with current medications and I will continue to monitor. Goal BP remains less than 130/80. Body mass index (BMI) 36.0-36.9, adult Goal of BMI < 30. Advised on weight loss options. Encourage diet and exercise. Appropriate lifestyle modification changes necessary for weight management, heart healthy eating and overall health promotion. Minimize high carb, high sugar, high sodium, portion control, and processed foods while making healthy choice replacements. Additionally discussed recommendations of 30 minutes of aerobic exercise at least 5 days per week, that includes, walking, and chair exercises. . Instructed importance of drinking adequate water consumption (if not on fluid restriction) with minimal sugar and caffiene. No follow-ups on file. documented in this encounter [facility] 10-01-2024 Telephone encounter Note The patient lm requesting refill of percocet 08/20/2024 Continue Percocet 5mg PO BID PRN for intractable pain related to lumbar degenerative spine disease. She is spacing out dosing and lasting longer than 30 days. Oarrs reviewed due 09/25/2024 [facility] 10-01-2024 Miscellaneous Notes The patient lm requesting refill of percocet 08/20/2024 Continue Percocet 5mg PO BID PRN for intractable pain related to lumbar degenerative spine disease. She is spacing out dosing and lasting longer than 30 days. [facility]arrs reviewed due 09/25/2024 documented in this encounter [facility] 09-04-2024 History of Present illness Narrative Images from the original note were not included. HPI Cough Additional comments: She has had a cough for 2 weeks, moist and a little green phlegm, has come SOB but her symptoms seem to be improving and is not sure if she needs an ATB. Last edited by Nu Curtis LPN on 09/04/2024 11:46 AM. Subjective Patient ID: Keith Washington is a 54 y.o. female who presents for Cough (She has had a cough for 2 weeks, moist and a little green phlegm, has come SOB but her symptoms seem to be improving and is not sure if she needs an ATB.). Worries about her son who suffers from depression. Just started exercising. Cough Associated symptoms include shortness of breath. Pertinent negatives include no chest pain, chills, ear pain, fever, rash, rhinorrhea, sore throat or wheezing. Medicare Wellness Over the past 2 weeks, how often have you been bothered by any of the following problems? Little interest or pleasure in doing things: Not at all (controlled on medication) Feeling down, depressed, or hopeless: Not at all Patient Health Questionnaire-2 Score: 0 Over the past 2 weeks, how often have you been bothered by any of the following problems? Trouble falling or staying asleep, or sleeping too much: Not at all Feeling tired or having little energy: Not at all Poor appetite or overeating: Not at all Feeling bad about yourself - or that you are a failure or have let yourself or your family down: Not at all Trouble concentrating on things, such as reading the newspaper or watching television: Not at all Moving or speaking so slowly that other people could have noticed? Or the opposite - being so fidgety or restless that you have been moving around a lot more than usual.: Not at all Thoughts that you would be better off or hurting yourself in some way: Not at all Patient Health Questionnaire-9 Score: 0 Chambers Fall Risk History of Falling, Immediate or Within 3 Months: No Health Risk Assessment Form Do you need help eating, bathing, using the toilet, dressing, or getting around your home?: No Can you prepare your own meals?: Yes Can you do your own housework without help?: Yes Can you shop for groceries or clothes without help?: Yes Do you exercise for about 20 minutes 3 or more days a week?: No How confident are you that you can control and manage most of your health problems?: Very confident Can you mange your money, credit cards and accounts, pay bills and taxes?: Yes Vision Screening: Yes, no gross abnormalities Hearing Screening: Yes, no gross abnormalities Cognitive Screening Self Assessment: No overt cognitive deficiency is apparent by direct observation Three Word Registration: Leader, Season, Table Clock Drawing: Normal Clock - 2 Three Word Recall: All 3 words correct - 3 Total Score (0-5 Points): 5 Pain Assessment Pain Score: 2 Advance Care Planning Do you have a living will?: No Do you have a medical power of assistant attorney general?: No Current Outpatient Medications on File Prior to Visit Medication Sig Dispense Refill atenolol (Tenormin) 50 MG tablet TAKE 1 TABLET BY MOUTH EVERY DAY 100 tablet 3 clonazePAM (KlonoPIN) 1 MG tablet Take 1 tablet by mouth in the morning and 1 tablet in the evening and 1 tablet before bedtime. Docusate Sodium (DSS) 100 MG capsule Take 100 mg by mouth every 12 (twelve) hours if needed. empagliflozin (Jardiance) 10 MG TAKE 1 TABLET BY MOUTH EVERY DAY FOR 90 DAYS 100 tablet 3 escitalopram (Lexapro) 20 MG tablet Take 1 tablet by mouth 1 (one) time each day. fluticasone (Flonase) 50 MCG/ACT nasal spray 1 spray 1 (one) time each day at the same time PRN FREESTYLE LITE test strip 1 each by Other route 1 (one) time each day. ibuprofen 800 MG tablet PRN ipratropium-albuterol (Duo-Neb) 0.5-2.5 mg/3 mL nebulizer solution Take 3 mL by nebulization every 6 (six) hours. PRN KLOR-CON 20 MEQ ER tablet TAKE 1 TABLET BY MOUTH EVERY DAY 100 tablet 3 Lactobacillus-Inulin (CULTURELLE DIGESTIVE DAILY PO) Take 1 tablet by mouth 1 (one) time each day levothyroxine (Synthroid, Levoxyl) 75 MCG tablet TAKE 1 TABLET BY MOUTH ONCE EVERY MORNING ON AN EMPTY STOMACH 100 tablet 3 meclizine (Antivert) 25 MG tablet Take 1 tablet (25 mg) by mouth Daily as needed for nausea 30 tablet 2 meloxicam (Mobic) 15 MG tablet Take 1 tablet by mouth 1 (one) time each day at the same time PRN Multiple Vitamin (multivitamin) tablet Take 1 tablet by mouth Daily omeprazole (PriLOSEC) [address] capsule Take 1 capsule (20 mg) by mouth in the morning. Take before meals. 100 capsule 3 ondansetron (Zofran) 4 MG tablet Take 1 tablet (4 mg) by mouth every 12 (twelve) hours if needed for nausea 20 tablet 2 oxyCODONE-acetaminophen (Percocet) 5-325 MG tablet Take 1 tablet by mouth every 12 (twelve) hours PRN 60 tablet 0 Red Yeast Rice Extract (RED YEAST RICE PO) Take 1 tablet by mouth Daily Tirzepatide 5 MG/0.5ML solution pen-injector Inject 5 mg under the skin 1 (one) time per week 2 mL 2 tiZANidine (Zanaflex) 4 MG tablet Take 1 tablet by mouth every 8 (eight) hours if needed for muscle spasms. Ventolin HFA 108 (90 Base) MCG/ACT inhaler Inhale 1 puff every 4 (four) hours if needed for wheezing or shortness of breath. [DISCONTINUED] Umeclidinium-Vilanterol (Anoro Ellipta) 62.5-25 MCG/ACT aerosol powder Inhale 1 puff 1 (one) time each day at the same time. No current facility-administered medications on file prior to visit. I have reviewed and reconciled the history and medication list with the patient today. Allergies Allergen Reactions Azithromycin Unknown Corticosteroids Unknown Morphine Unknown Nitrofurantoin Unknown Nitrofurantoin Macrocrystal Unknown Cephalexin Rash Moxifloxacin Rash Social History Tobacco Use Smoking status: Former Types: Cigarettes Smokeless tobacco: Never Tobacco comments: 5 or less cigs/day Substance Use Topics Alcohol use: Not Currently Drug use: Yes Types: Oxycodone Family History Problem Relation Name Age of Onset Thyroid disease Mother Heart disease Father Clotting disorder Father Colon cancer Maternal Grandmother Heart disease Maternal Grandfather Other (fall) Paternal Grandmother Past Medical History: Diagnosis Date Alteration of awareness Anxiety Asthma (CMS/HCC) Carpal tunnel syndrome Chest pain Confusion 04/01/2015 and weakness COPD (chronic obstructive pulmonary disease) (CMS/HCC) Degenerative disc disease, cervical Degenerative disc disease, lumbar Depression (CMS/HCC) Diabetes mellitus (CMS/HCC) Diarrhea Disease of thyroid gland (CMS/HCC) Dyspnea Fibromyalgia Gallbladder disease Genital herpes History of psychiatric hospitalization psych admission 08/2015, 07/2015 Liver disease Liver lesion Lumbosacral radiculopathy Pancreas cyst (CMS/HCC) Rotavirus infection Syncope Tooth abscess Transient ischemic attack (TIA) Vertigo Vomiting Past Surgical History: Procedure Laterality Date BACK SURGERY 2004 BIOPSY / EXCISION / DRAINAGE PANCREATIC CYST 05/15/2016 CARDIAC CATHETERIZATION SECTION, LOW TRANSVERSE 1991 CHOLECYSTECTOMY 2007 EKG 2011 syncope LIVER BIOPSY 2007 OTHER SURGICAL HISTORY 2007 YVF, Normal K+ OTHER SURGICAL HISTORY 1993 r/o sinus polpys WRIST SURGERY 06/06/2023 [facility]- [facility] Visit Vitals BP 118/82 Pulse 77 Resp 16 Ht 5' 6 Wt 225 lb 9.6 oz SpO2 97% BMI 36.41 kg/m OB Status Having periods Smoking Status Former BSA 2.18 m Review of Systems Constitutional: Negative for chills, fatigue and fever. HENT: Negative for congestion, ear pain, rhinorrhea and sore throat. Eyes: Negative for pain, discharge and visual disturbance. Respiratory: Positive for cough and shortness of breath. Negative for wheezing. Cardiovascular: Negative for chest pain, palpitations and leg swelling. Gastrointestinal: Negative for abdominal pain, constipation, diarrhea, nausea and vomiting. Genitourinary: Negative for difficulty urinating, dysuria and frequency. Musculoskeletal: Negative for arthralgias and back pain. Skin: Negative for rash. Neurological: Negative for dizziness and numbness. Psychiatric/Behavioral: Positive for dysphoric mood. Negative for sleep disturbance. The patient is not nervous/anxious. Objective Physical Exam Constitutional: General: She is not in acute distress. Appearance: She is well-developed. She is obese. HENT: Head: Normocephalic and atraumatic. Right Ear: Tympanic membrane and ear canal normal. Left Ear: Tympanic membrane and ear canal normal. Nose: Nose normal. Mouth/Throat: Mouth: Mucous membranes are moist. Pharynx: No posterior oropharyngeal erythema. Eyes: General: No scleral icterus. Extraocular Movements: Extraocular movements intact. Conjunctiva/sclera: Conjunctivae normal. Pupils: Pupils are equal, round, and reactive to light. Cardiovascular: Rate and Rhythm: Normal rate and regular rhythm. Heart sounds: Normal heart sounds. No murmur heard. Pulmonary: Effort: Pulmonary effort is normal. No respiratory distress. Breath sounds: Wheezing and rhonchi (Soft in lower lung wang) present. No rales. Abdominal: General: Bowel sounds are normal. There is no distension. Palpations: Abdomen is soft. Tenderness: There is no abdominal tenderness. There is no guarding. Musculoskeletal: General: No swelling or deformity. Normal range of motion. Cervical back: Normal range of motion and neck supple. No tenderness. Skin: General: Skin is warm and dry. Capillary Refill: Capillary refill takes less than 2 seconds. Findings: No rash. Neurological: General: No focal deficit present. Mental Status: She is alert and oriented to person, place, and time. Cranial Nerves: No cranial nerve deficit. Sensory: No sensory deficit. Motor: No weakness. Gait: Gait normal. Deep Tendon Reflexes: Reflexes normal. Psychiatric: Mood and Affect: Mood normal. Behavior: Behavior normal. Thought Content: Thought content normal. Judgment: Judgment normal. Assessment & Plan 1. Medicare annual wellness visit, subsequent (Primary) Reviewed all relevant preventative screenings with the patient in detail. Medicare Wellness form completed and will be scanned into patient's chart. All needed testing was ordered. Will continue with yearly Medicare Wellness exams. - Lipid panel 2. ACP (advance care planning) Patient agreed to discuss advance care planning at today's wellness visit. We discussed that an advance directive is a legal document that only goes into effect if the patient is incapacitated and unable to speak for himself or herself. This would help healthcare providers to ensure that the patient gets the care that he or she wishes to receive. The goal is to provide a patient with the best possible quality of life. Encouraged patient to obtain a living will and durable power of assistant attorney general for healthcare. We discussed telling kurtz people about their advance directives such as close family members, and requested a copy to scan into the patient's EHR. An advance directive packet was offered to the patient. 3. Chronic bronchitis, unspecified chronic bronchitis type ([facility]) Provided pt with prescription for the Anoro. Advised pt to use the maintenance inhaler daily to help with current symptoms, and to try to prevent flare ups. - Umeclidinium-Vilanterol (Anoro Ellipta) 62.5-25 MCG/ACT aerosol powder ; Inhale 1 puff 1 (one) time each day at the same time Dispense: 1 each; Refill: 5 4. Bilateral carpal tunnel syndrome The patient is seeing a caregivers non medical for this condition, treatment is deferred to that specialist. Correspondence from that specialist and any available testing were reviewed during today's visit. 5. Cervicalgia This is a chronic medical condition that is stable since last assessment. No changes in treatment are suggested at this time. 6. Disturbance of skin sensation The patient is seeing a caregivers non medical for this condition, treatment is deferred to that specialist. Correspondence from that specialist and any available testing were reviewed during today's visit. 7. Lumbosacral radiculopathy The patient is seeing a caregivers non medical for this condition, treatment is deferred to that specialist. Correspondence from that specialist and any available testing were reviewed during today's visit. 8. Median nerve neuropathy, unspecified laterality The patient is seeing a caregivers non medical for this condition, treatment is deferred to that specialist. Correspondence from that specialist and any available testing were reviewed during today's visit. 9. Notalgia paresthetica The patient is seeing a caregivers non medical for this condition, treatment is deferred to that specialist. Correspondence from that specialist and any available testing were reviewed during today's visit. 10. Post concussion syndrome The patient is seeing a caregivers non medical for this condition, treatment is deferred to that specialist. Correspondence from that specialist and any available testing were reviewed during today's visit. 11. Moderate persistent asthma without complication ([facility]) Provided pt with prescription for the Anoro. Advised pt to use the maintenance inhaler daily to help with current symptoms, and to try to prevent flare ups. 12. Panlobular emphysema ([facility]) Provided pt with prescription for the Anoro. Advised pt to use the maintenance inhaler daily to help with current symptoms, and to try to prevent flare ups. 13. Essential hypertension (CMS/HCC) Patient's blood pressure is currently well controlled. Continue with current medications and I will continue to monitor. Goal BP remains less than 130/80. - Lipid panel 14. 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 Correspondence from that specialist and any available testing were reviewed during today's visit. 15. Drug-induced adrenocortical insufficiency (CMS/HCC) The patient is seeing a caregivers non medical for this condition, treatment is deferred to that specialist. Correspondence from that specialist and any available testing were reviewed during today's visit. 16. Gastroesophageal reflux disease without esophagitis This is a chronic medical condition that is stable since last assessment. No changes in treatment are suggested at this time. 17. History of gastritis This is a chronic medical condition that is stable since last assessment. No changes in treatment are suggested at this time. 18. Irritable bowel syndrome, unspecified type This is a chronic medical condition that is stable since last assessment. No changes in treatment are suggested at this time. 19. Pancreas, cyst, true (CMS/HCC) The patient is seeing a caregivers non medical for this condition, treatment is deferred to that specialist. Correspondence from that specialist and any available testing were reviewed during today's visit. 20. Serous cystadenoma of pancreas The patient is seeing a caregivers non medical for this condition, treatment is deferred to that specialist. Correspondence from that specialist and any available testing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 prognosis. Patient had subsequent exploratory laparotomy, liver biopsy with excision of palpable mass and pancrease biopsy [place] [address] Medel. No pathology report obtainable but patient reports it was non-cancerous. Patient states she was monitored with CT imaging yearly until 2016. She states the imaging from 2016 demonstrated enlargement of the pancreatic cyst so patient was scheduled for EUS in 2016. Pathology consistent with pauci-cellular specimen with epithelioid cells. No malignant cells. CEA was 1.7 and amylase was 183. Patient reports she underwent MRI every 2 years since biopsy in 2016. Most recent MRI in April 2024 demonstrated stable pancreatic head mass measuring 2.7 x 2.2 x 3.6 cm. Patient states she was referred for evaluation due to more dense area . Patient reports occasional LUQ pain with bending over. Denies nausea, emesis, changes in bowel habits, or unintentional weight loss. Patient reports she started taking Monjouro with 50 pound weight loss since July. Patient reports she smokes 1 pack per day for 15 years. Family History of Pancreatic Cancer: no Personal History of Pancreatitis: no Genetic Testing: no ROS: Constitutional: Negative. HENT: Negative. Eyes: Negative. Respiratory: Negative. Cardiovascular: Negative. Gastrointestinal: Intermittent LUQ pain Endocrine: Negative. Genitourinary: Negative. Musculoskeletal: Negative. Skin: Negative. Allergic/Immunologic Negative. Neurological: Negative. Hematological: Negative. Psychiatric/Behavioral: Negative. Past Medical History: Past Medical History: Diagnosis Date Anxiety Asthma COPD (chronic obstructive pulmonary disease) ([facility]-HCC) Diarrhea DM (diabetes mellitus) ([facility]-HCC) Liver lesion TIA (transient ischemic attack) Past Surgical History: Past Surgical History: Procedure Laterality Date BACK SURGERY 2003 CARDIAC CATHETERIZATION SECTION 1990 CHOLECYSTECTOMY 2007 LIVER BIOPSY 2007 Family History: Family History Problem Relation Age of Onset Colon cancer Maternal Grandmother Cancer Maternal Aunt breast Social History: Social History Socioeconomic History Marital status: Single Spouse name: Not on file Number of children: Not on file Years of education: Not on file Highest education level: Not on file Occupational History Not on file Tobacco Use Smoking status: Every Day Types: Cigarettes Smokeless tobacco: Never Vaping Use Vaping status: Never Used Substance and Sexual Activity Alcohol use: Never Drug use: Not on file Sexual activity: Not on file Other Topics Concern Not on file Social History Narrative Not on file Social Determinants of Health Financial Resource Strain: Low Risk (04/03/2024) Received from [facility] Overall Financial Resource Strain (CARDIA) Difficulty of Paying Living Expenses: Not very hard Food Insecurity: No Food Insecurity (06/03/2024) Hunger Screening Food Insecurity - Worry: Never True Food Insecurity - Inability: Never True Transportation Needs: No Transportation Needs (04/03/2024) Received from [facility] PRAPARE - Transportation Lack of Transportation (Medical): No Lack of Transportation (Non-Medical): No Physical Activity: Not on file Stress: No Stress Concern Present (04/03/2024) Received from [facility] [place] [facility] Occupational Health - Occupational Stress Questionnaire Feeling of Stress : Only a little Social Connections: Not on file Interpersonal Safety: Not on file Housing Instability: Not on file Allergies: Allergies Allergen Reactions Corticosteroids (Glucocorticoids) Other (See Comments) Morphine Other (See Comments) and Vomiting Nitrofurantoin Other (See Comments) Azithromycin Rash and Other (See Comments) Cephalexin Rash Moxifloxacin Rash and Other (See Comments) Nitrofurantoin Monohyd/M-Cryst Rash and Other (See Comments) Current Medications: Current Outpatient Medications Medication Sig Dispense Refill clonazePAM (KlonoPIN) 1 mg tablet Take 3 tablets (3 mg total) by mouth in the morning. JARDIANCE 10 mg tablet tablet Take 1 tablet (10 mg total) by mouth. KLOR-CON M20 20 mEq CR tablet Take 1 tablet (20 mEq total) by mouth in the morning. levothyroxine (SYNTHROID, LEVOTHROID) 75 MCG tablet 1 tablet (75 mcg total). MOUNJARO 2.5 mg/0.5 mL pen injector INJECT 0.5ML SUBCUTANEOUSLY ONCE A WEEK oxyCODONE-acetaminophen (PERCOCET) 5-325 mg per tablet Take 1 tablet by mouth every 12 (twelve) hours. No current facility-administered medications for this visit. Objective: Vitals Vitals: 06/03/24 1334 BP: 137/76 Pulse: 76 Physical Exam Constitutional: She is oriented to person, place, and time. Appears well-developed and well-nourished. HENT: Normocephalic and atraumatic. Eyes: EOM are normal. Neck: Normal range of motion. No tracheal deviation present. Cardiovascular: Normal rate, regular rhythm and normal heart sounds. Pulmonary/Chest Effort normal and breath sounds normal. Abdominal: Soft. Bowel sounds are normal. She exhibits no distension, no ascites and no mass. There is no tenderness. There is no rebound and no guarding. No hernia noted. Multiple scars. Neurological: She is alert and oriented to person, place, and time. Skin Skin is warm. Psychiatric: Normal mood and affect. Behavior is normal. Judgment and thought content normal. Recent Labs Results No visits with results within 1 Month(s) from this visit. Latest known visit with results is: No results found for any previous visit. Recent Radiology Studies MR Abdomen w/wo contrast 05/09/24: IMPRESSION: *Stable pancreatic head mass measuring 2.7 x 2.2 x 3.6 cm. Stability over time suggests a benign process however this lesion does not enhance, the etiology is indeterminate. CT AP w/ contrast 03/24/24: IMPRESSION: *CT abdomen and CT pelvis studies demonstrate findings which can be correlated for mild gastroenteritis. *Slight interval prominence of the cystic appearing area in the pancreatic head as described. Finding may represent slight progression of nonspecific cysts, the possibility cannot be entirely excluded. Follow-up MRI abdomen study with and without intravenous gadolinium contrast may be considered for further evaluation. MRI Abdomen wo contrast 06/26/18: CONCLUSION: *Examination was terminated by the patient due to pain. Contrast was refused by the patient. *2.9 cm pancreatic head cyst versus focal dilation of the pancreatic duct. No visible soft tissue component, although the lack of intravenous contrast slightly diminished diagnostic sensitivity. Given the overall stability since 2011 this favors a benign process. MR Abdomen w/wo contrast 08/11/22: *Stable cystic lesion at the head of the pancreas measuring up to 3.6 cm in greatest dimension. The long-term stability and low risk features favors a benign etiology such as a cyst or pseudocyst. Continued long-term surveillance is recommended with a repeat MRI in 2 years. Reviewed imaging personally and agree with the official interpretation. Assessment/Plan Pancreatic cyst Keith Washington is a 54 year old female presenting for evaluation of pancreatic cyst. Cyst has appeared stable on imaging dating back to 2018 per chart review. Patient has a tissue biopsy consistent with serous cystoadenoma. Discussed with patient these lesions are benign and are not at risk for transitioning to malignancy. Discussed there is no need for surveillance imaging or additional biopsies. Patient may follow up as needed. Betty Hardy MD General Surgery Resident Attending Attestation: I saw the patient. I participated and was physically present during the critical/kurtz portions of the service. I was directly involved in the management and treatment plan of the patient. I reviewed the resident's note. Additional Notes/Findings: Patient with a pancreatic cystic lesion that has been basically unchanged since 2007 and on most recent EUS in 2014 was found to be consistent by serum amylase and CEA to be consistent with a serous cystadenoma. No need for repeat imaging or follow up unless patient becomes symptomatic. documented in this encounter [facility] 05-27-2024 History of Present illness Narrative Associated Problem(s): Pancreas, cyst, true (CMS/HCC) Patient has seen Dr. Shah and biopsy apparently was done at one time. The CT references this has been stable over the past 12 years, since 2011. Has also seen Dr. Madison. Dr. Reyes in [place] was sent a referral. Also saw a specialist in [place] that did biopsy. She will ow see Dr. Brown who can do biopsy at the same time EUS Associated Problem(s): 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 Patient was referred to Dr. Rust, but patient was referred to a specialist. She was wanting referral to someone who would do scope and also biopsy at the same time. Images from the original note were not included. Subjective Patient ID: Keith Washington is a 54 y.o. female who presents for referral . Pt is wanting a referral to jeanne brown NEEDS TO SAY ON REFERRAL URGENT phone # is [phone] Pt states they need paperwork from 2007 where it was discovered and from 2015 with daisy did a biopsy report Has been doing Mounjaro and lost weight about 50lbs Current Outpatient Medications on File Prior to Visit Medication Sig Dispense Refill atenolol (Tenormin) 50 MG tablet TAKE 1 TABLET BY MOUTH EVERY DAY 100 tablet 3 clonazePAM (KlonoPIN) 1 MG tablet Take 1 tablet by mouth in the morning and 1 tablet in the evening and 1 tablet before bedtime. Docusate Sodium (DSS) 100 MG capsule Take 100 mg by mouth every 12 (twelve) hours if needed. empagliflozin (Jardiance) 10 MG TAKE 1 TABLET BY MOUTH EVERY DAY FOR 90 DAYS 100 tablet 3 escitalopram (Lexapro) 20 MG tablet Take 1 tablet by mouth 1 (one) time each day. fluticasone (Flonase) 50 MCG/ACT nasal spray 1 spray 1 (one) time each day at the same time PRN FREESTYLE LITE test strip 1 each by Other route 1 (one) time each day. ibuprofen 800 MG tablet PRN ipratropium-albuterol (Duo-Neb) 0.5-2.5 mg/3 mL nebulizer solution Take 3 mL by nebulization every 6 (six) hours. PRN KLOR-CON 20 MEQ ER tablet TAKE 1 TABLET BY MOUTH EVERY DAY 100 tablet 3 Lactobacillus-Inulin (CULTURELLE DIGESTIVE DAILY PO) Take 1 tablet by mouth 1 (one) time each day levothyroxine (Synthroid, Levoxyl) 75 MCG tablet TAKE 1 TABLET BY MOUTH ONCE EVERY MORNING ON AN EMPTY STOMACH 100 tablet 3 meclizine (Antivert) 25 MG tablet Take 1 tablet by mouth Daily as needed for nausea. meloxicam (Mobic) 15 MG tablet Take 1 tablet by mouth 1 (one) time each day at the same time PRN Multiple Vitamin (multivitamin) tablet Take 1 tablet by mouth Daily omeprazole (PriLOSEC) [address] capsule Take 1 capsule (20 mg) by mouth in the morning. Take before meals. 100 capsule 3 ondansetron (Zofran) 4 MG tablet Take 1 tablet (4 mg) by mouth every 12 (twelve) hours if needed for nausea 20 tablet 2 oxyCODONE-acetaminophen (Percocet) 5-325 MG tablet Take 1 tablet by mouth every 12 (twelve) hours PRN 60 tablet 0 Red Yeast Rice Extract (RED YEAST RICE PO) Take 1 tablet by mouth Daily Tirzepatide (Mounjaro) 2.5 MG/0.5ML solution pen-injector Inject 0.5 mL under the skin 1 (one) time per week 2 mL 2 tiZANidine (Zanaflex) 4 MG tablet Take 1 tablet by mouth every 8 (eight) hours if needed for muscle spasms. Umeclidinium-Vilanterol (Anoro Ellipta) 62.5-25 MCG/ACT aerosol powder Inhale 1 puff 1 (one) time each day at the same time. Ventolin HFA 108 (90 Base) MCG/ACT inhaler Inhale 1 puff every 4 (four) hours if needed for wheezing or shortness of breath. No current facility-administered medications on file prior to visit. I have reviewed and reconciled the history and medication list with the patient today. Allergies Allergen Reactions Azithromycin Unknown Corticosteroids Unknown Morphine Unknown Nitrofurantoin Unknown Nitrofurantoin Macrocrystal Unknown Cephalexin Rash Moxifloxacin Rash Social History Tobacco Use Smoking status: Former Types: Cigarettes Smokeless tobacco: Never Tobacco comments: 5 or less cigs/day Substance Use Topics Alcohol use: Not Currently Drug use: Yes Types: Oxycodone Family History Problem Relation Name Age of Onset Thyroid disease Mother Heart disease Father Clotting disorder Father Colon cancer Maternal Grandmother Heart disease Maternal Grandfather Other (fall) Paternal Grandmother Past Medical History: Diagnosis Date Alteration of awareness Anxiety Asthma (CMS/HCC) Carpal tunnel syndrome Chest pain Confusion 04/01/2015 and weakness COPD (chronic obstructive pulmonary disease) (CMS/HCC) Degenerative disc disease, cervical Degenerative disc disease, lumbar Depression (CMS/HCC) Diabetes mellitus (CMS/HCC) Diarrhea Disease of thyroid gland (CMS/HCC) Dyspnea Fibromyalgia Gallbladder disease Genital herpes History of psychiatric hospitalization psych admission 08/2015, 07/2015 Liver disease Liver lesion Lumbosacral radiculopathy Pancreas cyst (CMS/HCC) Rotavirus infection Syncope Tooth abscess Transient ischemic attack (TIA) Vertigo Vomiting Past Surgical History: Procedure Laterality Date BACK SURGERY 2004 BIOPSY / EXCISION / DRAINAGE PANCREATIC CYST 05/15/2016 CARDIAC CATHETERIZATION SECTION, LOW TRANSVERSE 1991 CHOLECYSTECTOMY 2008 EKG 2012 syncope LIVER BIOPSY 2008 OTHER SURGICAL HISTORY 2007 YVF, Normal K+ OTHER SURGICAL HISTORY 1993 r/o sinus polpys WRIST SURGERY 06/06/2023 R CTR- MTP Visit Vitals BP 122/88 Pulse 69 Ht 5' 6 Wt 231 lb SpO2 97% BMI 37.28 kg/m OB Status Having periods Smoking Status Former BSA 2.21 m Review of Systems Constitutional: Negative for chills, fatigue and fever. Respiratory: Negative for cough, shortness of breath and wheezing. Cardiovascular: Negative for chest pain, palpitations and leg swelling. Gastrointestinal: Positive for abdominal pain and blood in stool. Negative for constipation, diarrhea, nausea and vomiting. Musculoskeletal: Positive for arthralgias. Skin: Negative for rash. Objective Physical Exam Constitutional: General: She is not in acute distress. Appearance: She is well-developed. She is obese. HENT: Head: Normocephalic and atraumatic. Eyes: General: No scleral icterus. Conjunctiva/sclera: Conjunctivae normal. Neck: Vascular: No carotid bruit. Cardiovascular: Rate and Rhythm: Normal rate and regular rhythm. Heart sounds: Normal heart sounds. No murmur heard. Pulmonary: Effort: Pulmonary effort is normal. No respiratory distress. Breath sounds: Normal breath sounds. No wheezing, rhonchi or rales. Musculoskeletal: Left foot: Normal range of motion and normal capillary refill. Tenderness and bony tenderness present. Normal pulse. Comments: Tender over head of second left metatarsal Skin: General: Skin is warm and dry. Neurological: General: No focal deficit present. Mental Status: She is alert and oriented to person, place, and time. Psychiatric: Mood and Affect: Mood normal. Behavior: Behavior normal. Assessment/Plan Problem List Items Addressed This Visit 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 - Primary Patient was referred to Dr. Rust, but patient was referred to a specialist. She was wanting referral to someone who would do scope and also biopsy at the same time. Pancreas, cyst, true (CMS/HCC) Patient has seen Dr. Shah and biopsy apparently was done at one time. The CT references this has been stable over the past 12 years, since 2011. Has also seen Dr. Madison. Dr. Reyes in [place] was sent a referral. Also saw a specialist in [place] that did biopsy. She will ow see Dr. Brown who can do biopsy at the same time EUS No follow-ups on file. documented in this encounter [facility] 05-13-2024 Telephone encounter Note Her MRI showed the pancreatic lesion was stable in size. However, based on the radiodensity of the lesion, the nature of the lesion is indeterminate. Called and left a detailed message, asking her to call back and let us know if she would like referral to General Surgery for a consult. [facility] 05-13-2024 Miscellaneous Notes Her MRI showed the pancreatic lesion was stable in size. However, based on the radiodensity of the lesion, the nature of the lesion is indeterminate. Called and left a detailed message, asking her to call back and let us know if she would like referral to General Surgery for a consult. documented in this encounter [facility] Evaluation + Plan note No data available for this section [facility] Evaluation note Diagnosis 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 Pancreas, cyst, true (CMS/HCC) Cyst and pseudocyst of pancreas Mechanical ptosis of left eyelid- Primary documented in this encounter [facility]* Diagnosis 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 Pancreas, cyst, true (CMS/HCC) Cyst and pseudocyst of pancreas Chronic low back pain, unspecified back pain laterality, unspecified whether sciatica present documented in this encounter [facility] HealthcareEvaluation note* Diagnosis 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 Pancreas, cyst, true (CMS/HCC) Cyst and pseudocyst of pancreas Encounter for drug therapy- Primary Degeneration of intervertebral disc of lumbar region with discogenic back pain Hyper reflexia Abnormal reflex Left arm pain Pain in soft tissues of limb Neck pain Cervicalgia documented in this encounter [facility]* Diagnosis 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 Pancreas, cyst, true (CMS/HCC) Cyst and pseudocyst of pancreas Left arm pain- Primary Pain in soft tissues of limb Carpal tunnel syndrome on both sides Carpal tunnel syndrome documented in this encounter [facility]* Diagnosis 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 Pancreas, cyst, true (CMS/HCC) Cyst and pseudocyst of pancreas Degeneration of intervertebral disc of lumbar region with discogenic back pain- Primary Encounter for drug therapy Left arm pain Pain in soft tissues of limb Neck pain Cervicalgia Vertigo Dizziness and giddiness documented in this encounter [facility]* Diagnosis 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 Pancreas, cyst, true (CMS/HCC) Cyst and pseudocyst of pancreas Chronic low back pain, unspecified back pain laterality, unspecified whether sciatica present documented in this encounter [facility]* Diagnosis 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 Pancreas, cyst, true (CMS/HCC) Cyst and pseudocyst of pancreas Medicare annual wellness visit, subsequent- Primary ACP (advance care planning) Other specified counseling Chronic bronchitis, unspecified chronic bronchitis type (CMS/HCC) Bilateral carpal tunnel syndrome Carpal tunnel syndrome Cervicalgia Disturbance of skin sensation Lumbosacral radiculopathy Thoracic or lumbosacral neuritis or radiculitis, unspecified Median nerve neuropathy, unspecified laterality Notalgia paresthetica Disturbance of skin sensation Post concussion syndrome Postconcussion syndrome Moderate persistent asthma without complication (CMS/HCC) Panlobular emphysema (CMS/HCC) Other emphysema Essential hypertension (CMS/HCC) Unspecified essential hypertension 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 Drug-induced adrenocortical insufficiency ([facility]/HCC) Gastroesophageal reflux disease without esophagitis Esophageal reflux History of gastritis Irritable bowel syndrome, unspecified type Pancreas, cyst, true (CMS/HCC) Cyst and pseudocyst of pancreas Serous cystadenoma of pancreas DUB (dysfunctional uterine bleeding) Other disorder of menstruation and other abnormal bleeding from female genital tract Degenerative disc disease, cervical Degeneration of intervertebral disc of lumbar region with discogenic back pain and lower extremity pain Fibromyalgia Unspecified myalgia and myositis Myalgia Unspecified myalgia and myositis Pain in joint involving pelvic region and thigh, unspecified laterality Acquired hypothyroidism ([facility]) Unspecified hypothyroidism Morbid obesity ([facility]) Morbid obesity Type 2 diabetes mellitus with stage 2 chronic kidney disease, without long-term current use of insulin ([facility]) Chronic glossitis Chronic pansinusitis Other chronic sinusitis Chronic reactive otitis externa of both ears Infected sebaceous cyst Sebaceous cyst Abnormal CBC Other abnormal blood chemistry Abnormal gait Abnormality of gait Anxiety and depression ([facility]/HCC) Benign paroxysmal positional vertigo due to bilateral vestibular disorder Bilateral tinnitus Mild episode of recurrent major depressive disorder (HCC) (CMS/HCC) Generalized anxiety disorder ([facility]) Generalized anxiety disorder History of TIA (transient ischemic attack) Chronic low back pain, unspecified back pain laterality, unspecified whether sciatica present Meniere's disease of both ears Menopause Symptomatic menopausal or female climacteric states Other rosacea Pure hypercholesterolemia (CMS/HCC) Pure hypercholesterolemia Sensorineural hearing loss, bilateral Smoker Tobacco use disorder documented in this encounter [facility]* Diagnosis 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 Pancreas, cyst, true (CMS/HCC) Cyst and pseudocyst of pancreas documented in this encounter [facility] HealthcareEvaluation note* Diagnosis Type 2 diabetes mellitus with stage 2 chronic kidney disease, without long-term current use of insulin (CMS/HCC) documented in this encounter [facility] HealthcareEvaluation note* Diagnosis Chronic low back pain, unspecified back pain laterality, unspecified whether sciatica present documented in this encounter [facility] HealthcareEvaluation note* Diagnosis 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 Pancreas, cyst, true (CMS/HCC) Cyst and pseudocyst of pancreas Chronic low back pain, unspecified back pain laterality, unspecified whether sciatica present documented in this encounter [facility] HealthcareEvaluation note* Diagnosis 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 Pancreas, cyst, true (CMS/HCC) Cyst and pseudocyst of pancreas Bronchitis- Primary Bronchitis, not specified as acute or chronic Morbid (severe) obesity due to excess calories (CMS/HCC) Essential (primary) hypertension (CMS/HCC) Unspecified essential hypertension Body mass index (BMI) 36.0-36.9, adult documented in this encounter [facility] HealthcareEvaluation note* Diagnosis 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 Pancreas, cyst, true (CMS/HCC) Cyst and pseudocyst of pancreas Mixed hyperlipidemia (CMS/HCC)- Primary Mixed hyperlipidemia Major depressive disorder, recurrent, moderate (CMS/HCC) Major depressive disorder, recurrent episode, moderate Bronchitis Bronchitis, not specified as acute or chronic documented in this encounter [facility] HealthcareEvaluation note* Diagnosis 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 Pancreas, cyst, true (CMS/HCC) Cyst and pseudocyst of pancreas Mechanical ptosis of left eyelid- Primary documented in this encounter [facility]Evaluation note* Diagnosis 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 Pancreas, cyst, true (CMS/HCC) Cyst and pseudocyst of pancreas Postoperative care for cataract- Primary Follow-up examination, following other surgery documented in this encounter [facility] HealthcareEvaluation note* Diagnosis 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 Pancreas, cyst, true (CMS/HCC) Cyst and pseudocyst of pancreas Chronic low back pain, unspecified back pain laterality, unspecified whether sciatica present documented in this encounter [facility] HealthcareEvaluation note* Diagnosis Serous cystadenoma of pancreas- Primary [facility] 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 Pancreas, cyst, true (CMS/HCC) Cyst and pseudocyst of pancreas Bleeding after intercourse Postcoital bleeding Menopausal state Symptomatic menopausal or female climacteric states documented in this encounter [facility] HealthcareEvaluation note* Diagnosis 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 Pancreas, cyst, true (CMS/HCC) Cyst and pseudocyst of pancreas Postoperative care for cataract- Primary Follow-up examination, following other surgery documented in this encounter [facility] HealthcareEvaluation note* Diagnosis 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 Pancreas, cyst, true (CMS/HCC) Cyst and pseudocyst of pancreas Chronic low back pain, unspecified back pain laterality, unspecified whether sciatica present [facility] No data available for this section [facility] filedocumented [facility] No data available for this section [facility] Narrative* Consultation (Routine) - Pending Review Specialty Diagnoses / Procedures Referred By Vazquez t Referred To Contact General Surgery Diagnoses 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, cyst, true Procedures RI OFFICE OUTPATIENT VISIT 60-74 MINS HIGH MDM AMB REFERRAL TO GENERAL SURGERY Erik Smith MD [address] [facility] [address] [place] [address] Celio Brown MD [address], [facility] [address] [place] [address] Referral ID Status Reason Start Date Expiration Date V isits Requested Visits Authorized [id number] Pending Review 05/27/2024 11/23/2024 1 1 [facility] Summary Purpose Family History No Family History [...] section and content) DATE CREATED AUTHOR 11/16/2021 [facility]ical Specialist DATE CREATED AUTHOR AUTHOR'S ORGANIZ ATION 08/16/2022 [facility] DATE CREATED AUTHOR AUTHOR'S ORGANIZ ATION 06/06/2023 Otoniel Irizarry [facility] DATE CREATED AUTHOR AUTHOR'S ORGANIZ ATION 06/04/2024 [facility] DATE CREATED AUTHOR AUTHOR'S ORGANIZ ATION 06/05/2024 [facility] DATE CREATED AUTHOR AUTHOR'S ORGANIZ ATION 10/10/2024 [facility] DATE CREATED AUTHOR AUTHOR'S ORGANIZ ATION 10/17/2024 [facility] DATE CREATED AUTHOR AUTHOR'S ORGANIZ ATION 12/13/2024 [facility] dical Specialists EPIC Patient Care team informatio n (unrecognized section and content) Cardiologist Relationship Specialty Start Date End Date Erik Smith MD [address] [place] [address] PCP - General Family Medicine 04/16/23 Erik Smith MD [address] [place] [address] PCP - ACO Reach 09/23/23 Cardiologist Relationship Specialty Start Date End Date Erik Smith MD [address] [place] [address] PCP - General Family Medicine 04/16/23 Erik Smith MD [address] [place] [address] PCP - ACO Reach 09/23/23SundayVidya LPN [address] [place] [address] Licensed Practical Nurse Family Medicine 03/26/24 Cardiologist Relationship Specialty Start Date End Date Erik Smith MD [address] [place] [address] PCP - General Family Medicine 04/16/23 Erik Smith MD [address] [place] [address] PCP - ACO Reach 09/23/23Sunday, Vidya, HEARING AID TECHNICIAN [address] [place] [address] Licensed Practical Nurse Family Medicine 03/26/24 Cardiologist Relationship Specialty Start Date End Date Erik Smith MD [address] [place] [address] PCP - General Family Medicine 04/16/23 Erik Smith MD [address] [place] [address] PCP - ACO Reach 09/23/23Sunday, Vidya, HEARING AID TECHNICIAN [address] [place] [address] Licensed Practical Nurse Family Medicine 03/26/24 Cardiologist Relationship Specialty Start Date End Date Erik Smith MD [address] [place] [address] PCP - General Family Medicine 04/16/23 Erik Smith MD [address] [place] [address] PCP - ACO Reach 09/23/23Sunday, Vidya, HEARING AID TECHNICIAN [address] [place] [address] Licensed Practical Nurse Family Medicine 03/26/24 Cardiologist Relationship Specialty Start Date End Date Erik Smith MD [address] [place] [address] PCP - General Family Medicine 04/16/23 Erik Smith MD [address] [place] [address] PCP - ACO Reach 09/23/23Sunday, Vidya, HEARING AID TECHNICIAN [address] [place] [address] Licensed Practical Nurse Family Medicine 03/26/24 Cardiologist Relationship Specialty Start Date End Date Erik Smith MD [address] [place] [address] PCP - General Family Medicine 04/16/23 Erik Smith MD [address] [place] [address] PCP - ACO Reach 09/23/23Sunday, Vidya, HEARING AID TECHNICIAN [address] [place] [address] Licensed Practical Nurse Family Medicine 03/26/24 Cardiologist Relationship Specialty Start Date End Date Erik Smith MD [address] [place] [address] PCP - General Family Medicine 04/16/23 Erik Smith MD [address] [place] [address] PCP - ACO Reach 09/23/23Sunday, Vidya, HEARING AID TECHNICIAN [address] [place] [address] Licensed Practical Nurse Family Medicine 03/26/24 Cardiologist Relationship Specialty Start Date End Date Erik Smith MD [address] [place] [address] PCP - General Family Medicine 04/16/23 Erik Smith MD [address] [place] [address] PCP - ACO Reach 09/23/23Sunday, Vidya, HEARING AID TECHNICIAN [address] [place] [address] Licensed Practical Nurse Family Medicine 03/26/24 Cardiologist Relationship Specialty Start Date End Date Erik Smith MD [address] [place] [address] PCP - General Family Medicine 04/16/23 Erik Smith MD [address] [place] [address] PCP - ACO Reach 09/23/23Sunday, Vidya, HEARING AID TECHNICIAN [address] [place] [address] Licensed Practical Nurse Family Medicine 03/26/24 Cardiologist Relationship Specialty Start Date End Date Erik Smith MD [address] [place] [address] PCP - General Family Medicine 04/16/23 Erik Smith MD [address] [place] [address] PCP - ACO Reach 09/23/23Sunday, Vidya, HEARING AID TECHNICIAN [address] [place] [address] Licensed Practical Nurse Family Medicine 03/26/24 Cardiologist Relationship Specialty Start Date End Date Erik Smith MD [address] [place] [address] PCP - General Family Medicine 04/16/23 Erik Smith MD [address] [place] [address] PCP - ACO Reach 09/23/23SundayVidya LPN [address] [place] [address] Licensed Practical Nurse Family Medicine 03/26/24 Cardiologist Relationship Specialty Start Date End Date Erik Smith MD [address] [place] [address] PCP - General Family Medicine 04/16/23 Erik Smith MD [address] [place] [address] PCP - ACO Reach 09/23/23 Coco Paula, RN Licensed Practical Nurse Family Medicine 10/31/24 Cardiologist Relationship Specialty Start Date End Date Erik Smith MD [address] [place] [address] PCP - General Family Medicine 04/16/23 Erik Smith MD [address] [place] [address] PCP - ACO Reach 09/23/23 Coco Paula, RN Licensed Practical Nurse Family Medicine 10/31/24 Cardiologist Relationship Specialty Start Date End Date Erik Smith MD [address] [place] [address] PCP - General Family Medicine 04/16/23 Erik Smith MD [address] [place] [address] PCP - ACO Reach 09/23/23 Coco Paula, RN Licensed Practical Nurse Family Medicine 10/31/24 Cardiologist Relationship Specialty Start Date End Date Erik Smith MD [address] [place] [address] PCP - General Family Medicine 04/16/23 Erik Smith MD [address] [place] [address] PCP - ACO Reach 09/23/23 Coco Paula, ASHLEY Licensed Practical Nurse Family Medicine 10/31/24 Cardiologist Relationship Specialty Start Date End Date Erik Smith MD [address] [place] [address] PCP - General Family Medicine 04/16/23 Erik Smith MD [address] [place] [address] PCP - ACO Reach 09/23/23 Coco Paula, ASHLEY Licensed Practical Nurse Family Medicine 10/31/24 Cardiologist Relationship Specialty Start Date End Date Erik Smith MD [address] [place] [address] PCP - General Family Medicine 04/16/23 Erik Smith MD [address] [place] [address] PCP - ACO Reach 09/23/23 Coco Paula, RN Licensed Practical Nurse Family Medicine 10/31/24 Cardiologist Relationship Specialty Start Date End Date Erik Smith MD [address] [place] [address] PCP - General Family Medicine 04/16/23 Erik Smith MD [address] [place] [address] PCP - ACO Reach 09/23/23 Coco Paula RN Licensed Practical Nurse Family Medicine 10/31/24 Cardiologist Relationship Specialty Start Date End Date Erik Smith MD [address] [place] [address] PCP - General Family Medicine 04/16/23 Erik Smith MD [address] [place] [address] PCP - ACO Reach 09/23/23 Coco Paula, ASHLEY Licensed Practical Nurse Family Medicine 10/31/2411/22 Lulú Pringle LPN 12/10/24 Reason for Visit (unrecogniz ed section and content) Reason Comments Ptosis Reason Comments Back Pain Reason Comments Back Pain Reason Comments Cough She has had a cough for 2 weeks, moist and a little green phlegm, has come SOB but her symptoms seem to be improving and is not sure if she needs an ATB. Reason Comments referral Reason Comments Procedure Reason Comments Post-op Follow-up Reason Comments Menopause bleeding with intercourse Reason Comments Eyelid Problem FOR RECORDS PERTAINING TO PATIENTS WHO ARE [...] BE BASED ON THE PRIMARY CLINICAL RECORDS. [facility]. provides no warranty or guarantee of the accuracy or completeness of information in this document.
[2024-12-16 13:45] LABS: Basophils Absolute Auto 0.1 10^3/uL (0.0-0.1); Eosinophils Absolute Auto 0.2 10^3/uL (0.0-0.7); Eosinophils Percent Auto 2.5 % (0.9-7.0); Hematocrit 43.6 % (36.0-48.0); Hemoglobin 14.9 g/dL (12.0-16.0); Immature Granulocytes Abs Auto 0.02 10^3/uL (0.00-0.03); Immature Granulocytes Pct Auto 0.3 % (0.0-0.5); Lymphocytes Absolute Auto 3.4 10^3/uL (1.2-3.8); Lymphocytes Percent Auto 55.4 % (20.5-60.0); Mean Corpuscular HGB Conc 34.2 g/dL (29.9-35.2); Mean Corpuscular Hemoglobin 29.7 pg (26.7-34.0); Mean Platelet Volume 9.6 fL (9.5-13.5); Monocytes Absolute Auto 0.5 10^3/uL (0.3-0.8); Monocytes Percent Auto 8.7 % (1.7-12.0); Neutrophils Percent Auto 32.1 % (43.0-75.0); Platelet Count 214 10^3/uL (150-450); Red Blood Count 5.01 10^6/uL (4.20-5.40); White Blood Count 6.1 10^3/uL (4.0-11.0)
[2024-12-16 14:01] LABS: INR 1.02; Prothrombin Time 10.8 sec (9.0-11.6)
[2024-12-16 14:16] LABS: Anion Gap 10.5; BUN Creatinine Ratio 15.4; Calcium 8.9 mg/dL (8.5-10.1); Carbon Dioxide 28.7 mmol/L (21.0-32.0); Chloride 105 mmol/L (98-107); Estimated GFR (African America >60 (>=60 mL/min/1.73m^2); Estimated GFR (Non-African Ame >60 (>=60 mL/min/1.73m^2); Glucose 109 mg/dL (74-106); Potassium 4.2 mmol/L (3.5-5.1); Sodium 140 mmol/L (136-145)
[2024-12-16 14:23] LABS: Alanine Aminotransferase 16 U/L (14-59); Albumin Globulin Ratio 1.2; Albumin Level 3.6 g/dL (3.4-5.0); Alkaline Phosphatase 75 U/L (46-116); Aspartate Amino Transferase 19 U/L (15-37); Bilirubin Direct 0.1 mg/dL (0.0-0.2); Bilirubin Total 0.5 mg/dL (0.2-1.0); Globulin 3.1 g/dL; Total Protein 6.7 g/dL (6.4-8.2)
== END 2024-12-16 12:45 | disposition home or self-care (01) ==
LOC: PST 12:45
PROVIDERS: PCP Family Medicine; Visit Provider Obstetrics & Gynecology
DX: Z01.810 Encounter for preprocedural cardiovascular examination (principal); Z01.812 Encounter for preprocedural laboratory examination; N95.1 Menopausal and female climacteric states; N94.10 Unspecified dyspareunia; N93.0 Postcoital and contact bleeding
CPT/HCPCS: 71046; 80048; 80076; 85025; 85610; 85730; 93005

== ENCOUNTER 2024-12-26 06:41 | Day surgery (SDC) | payer MEDICARE, MEDICAID, SELFPAY ==
[2024-12-16 13:35] VITALS: BP 134/82; PULSE 59; TEMP 36.3; O2SAT 99; BMI 36.8
[2024-12-26 06:50] LABS: Basophils Absolute Auto 0.1 10^3/uL (0.0-0.1); Basophils Percent Auto 1.1 % (0.2-2.0); Eosinophils Absolute Auto 0.1 10^3/uL (0.0-0.7); Eosinophils Percent Auto 1.8 % (0.9-7.0); Hematocrit 48.2 % (36.0-48.0); Immature Granulocytes Abs Auto 0.01 10^3/uL (0.00-0.03); Immature Granulocytes Pct Auto 0.2 % (0.0-0.5); Lymphocytes Absolute Auto 3.4 10^3/uL (1.2-3.8); Mean Corpuscular HGB Conc 33.2 g/dL (29.9-35.2); Mean Corpuscular Hemoglobin 29.2 pg (26.7-34.0); Mean Platelet Volume 9.6 fL (9.5-13.5); Monocytes Absolute Auto 0.6 10^3/uL (0.3-0.8); Neutrophils Percent Auto 32.9 % (43.0-75.0); Platelet Count 243 10^3/uL (150-450); Red Blood Count 5.48 10^6/uL (4.20-5.40); White Blood Count 6.2 10^3/uL (4.0-11.0)
--- OUTSIDE RECORDS SUMMARY | 2024-12-26 06:51 | XMS_ITS ---
Author Name Auto Generated Organization OHIP Care Team Providers Care Personnel Counselor Name Role Phone ARIAS RIC Paulette Attending Unavailable ARIAS, RIC M Attending Unavailable COLETTE, LASHON M Attending Unavailable COLETTE, LASHON M Attending Unavailable MATEO, NICHOLE Attending Unavailable HILL, FERNANDO Attending Unavailable COLETTE, LASHON M Attending Unavailable COLETTE, LASHON M Attending Unavailable COLETTE, LASHON M Attending Unavailable MATEO, NICHOLE Referring Unavailable MATEO, NICHOLE Attending Unavailable HILL, FERNANDO Attending Unavailable HEMMER, LEONA M Attending Unavailable HILL, FERNANDO Attending Unavailable HEMMER, LEONA M Attending Unavailable SARAH, EDWIGEEN M Attending Unavailable COLETTE, LASHON M Attending Unavailable JOHN, FERNANDO Attending Unavailable BENEDICTMADISON Attending Unavailable HILL, FERNANDO Attending Unavailable HEMMER, LEONA M Attending Unavailable Isak Castillo Attending Unavailab le Isak Castillo Admitting Unavailab le Sarah Rugen M Primary Care Unavailable STEPHANIE, CELIO A Attending Unavailable SARAH RUGEN M Referring Unavailable PROBLEMS DATE TYPE CONDITION / CODE ATTENDING STATUS [facility] 06/02/2024 Unknown Pain, unspecifie d / R52(ICD-10) NA Active [facility] PROCEDURES No Procedure Records Found RESULTS US PELVIC COMPLETE W/ TV Observed: 12/10 10:22 AM Status: F Source: [facility] EPIC REPOSITORY Order Comment: US PELVIS-TRA NSVAG IF INDICATED No LMP recorded. Patient is premenopausal. EXAM: US PELVIC COMPLETE W/ TV HISTORY: [...] II, MD, PHD at 11-Dec-2024 08:46:31 AM [facility] LIPID PANEL, STANDARD Collected: 10/15/2024 8:09 AM Status: F Source: [place] [employer] REPOSITORY Order Comment: FASTING:YES FASTING: YES TYPE CODE TESTS RESULT OUT OF RANGE REFERENCE UNITS LAB [id number] CHOLESTEROL, TOTAL 249 High <200 mg/dL LAB [id number] HDL CHOLESTEROL 48 Low > OR = 50 mg/dL LAB [id number] TRIGLYCERIDES 247 High <150 mg/dL Result Comment: If a non-fasting specimen was collected, consider repeat triglyceride testing on a fasting specimen if clinically indicated. Crista et al. J. of Clin. Lipidol. 2015;9:129-169. LAB [id number] LDL-CHOLESTEROL 159 High mg/dL (calc) Result Comment: Reference ra nge: <100 Desirable range <100 mg/dL for primary prevention; <70 mg/dL for patients with CHD or diabetic patients with > or = 2 CHD risk factors. LDL-C is now calculated using the Bill-Arechiga calculation, which is a validated novel method providing better accuracy than the Friedewald equation in the estimation of LDL-C. Bill SS et al. NOÉ. 2013;310(19): 3714-9088 (http://education.[employer].[address]/faq/YYG122) LAB [id number] CHOL/HDLC RATIO 5.2 High <5.0 (calc) LAB [id number] NON HDL CHOLESTEROL 201 High <130 mg/dL (calc) Result Comment: For patients with diabetes plus 1 major ASCVD risk factor, treating to a non-HDL-C goal of <100 mg/dL (LDL-C of <70 mg/dL) is considered a therapeutic option. Performed By: #### 7600 #### Tweet Category [address], [address] [place] [id number] Community Relations Police Lieutenant: Luca Guajardo MD ALLERGIES DATE TYPE / CODE NAME / CODE REACTION SEVERITY SOURCE 04/15/2023 DRUG INGREDI~NON -CBORD/4195 38877(SNOME D CT) CEPHALEXIN Rash Low [facility] 11/22/2015 Drug Class~NON-C BORD/896498 003(SNOMED CT) CORTICOSTEROIDS (GLUCOCORTICOIDS) Other ( See Comments) [facility] 11/22/2015 DRUG INGREDI~NON -CBORD/4195 46758(SNOME D CT) MORPHINE Other~Vomiting [facility] 11/22/2015 DRUG INGREDI~NON -CBORD/4195 31724(SNOME D CT) NITROFURANTOIN Other ( See Comments) [facility] 11/22/2015 DRUG INGREDI~NON -CBORD/4195 16865(SNOME D CT) AZITHROMYCIN Rash~Other [facility] 11/22/2015 DRUG INGREDI~NON -CBORD/4195 23547(SNOME D CT) MOXIFLOXACIN Rash~Other [facility] 11/22/2015 DRUG~NON-CB ORD/3779726 03(SNOMED CT) NITROFURANTOIN MONOHYD/M-CRYST Rash~Other [facility] Drug Class/83873 1003(SNOMED CT) NO ALLERGY INFORMATION AVAILABLE [facility] ENCOUNTERS ADMIT/DISCHARGE ACCOUNT NUMBER ADMITTING ENCOUNTER CLASS LOCATION SOURCE 12/18/2024/ 025 [id number] Ambulatory Building:CIF AMMED [facility] 12/17/2024/ 025 [id number] Ambulatory Building:BSR NEURO [facility] EPIC 12/16/2024 [id number] Is[facility] Castillo [facility] 12/10/2024/ 025 [id number] Ambulatory Building:NOM S [facility] OB [facility] EPIC 12/10/2024/ 025 [id number] Ambulatory Building:NOM S [facility] OB [facility] EPIC 12/09/2024/ 025 [id number] [facility] 11/27/2024/ 025 [id number] Ambulatory Building:NOM S NB OPHT [facility] EPIC 11/24/2024/ 025 [id number] Ambulatory Building:NOM S NB OPHT [facility] EPIC 11/10/2024/ 025 [id number] Ambulatory Building:NOM S BCP OB [facility] EPIC 11/03/2024/ 025 [id number] Ambulatory Building:NOM S NB OPHT [facility] EPIC 10/23/2024/ 025 [id number] [facility] 10/22/2024/ 025 [id number] [facility] 10/15/2024/ 025 [id number] Ambulatory Building:[facility] EPIC 09/04/2024/ 024 [id number] Ambulatory Building:[facility] 08/20/2024/ 024 [id number] Ambulatory Building:R NEURO [facility] EPIC 08/19/2024/ 024 [id number] Ambulatory Building:R NEURO [facility] EPIC 07/21/2024/ 024 [id number] Ambulatory Building:R NEURO [facility] EPIC 07/07/2024/ 024 [id number] Ambulatory Building:NOM S [facility] EPIC 06/03/2024/ 024 [id number] Amb[address] [place] [address] 06/02/2024 [id number] Ambulatory Building:[facility] 06/02/2024 [id number] Ambulatory Building:[facility] 06/02/2024 [id number] Ambulatory Building:[facility] 05/27/2024/ 024 [id number] Ambulatory Building:[facility] EPIC 05/05/2024/ 024 [id number] Ambulatory Building:[facility] EPIC 04/28/2024/ 024 [id number] Ambulatory Building:BSR NEURO [facility] EPIC 01/14/2024/ 024 [id number] Ambulatory Building:BSR NEURO [facility] EPIC PAYERS ENCOUNTER GUARANTOR PAYER SUBSCRIBER SOURCE 12/18/2024 KEITH WASHINGTONMARIE: [address]Tel: (HP) Primary Insurance:MEDICAREPoli cy Number: [id number] Date:8316-77-18Geyx Name:Medicare GAIL L MOOREDOB: [id number] [address] [place] [address] [facility] EPIC 12/18/2024 Secondary Insurance[place]: [id number] Date:2020-08-24 EKITH WASHINGTONB: [id number] [address] [place] [address] [facility] EPIC 12/17/2024 KEITH Singh LATISHAB: [place] [address]Tel: (HP) Primary Insurance:MEDICAREPoli cy Number: [id number] Date:0846-42-19Xfks Name:Medicare GAIL L MOOREDOB: [id number] [address] [facility] EPIC 12/17/2024 Secondary Insurance[place]: [id number] Date:2020-08-24 KEITH Singh KENNA: [id number] [address] [place] [address] [facility] EPIC 12/16/2024 Keith Rodriguez [address]Tel: (HP) Primary Insurance:Self PayPolicy Number: Effective Date:2023-01-29 [facility]/10/2024 KEITH WASHINGTONB: [place] [id number]: (HP) Primary Insurance:MEDICAREPoli cy Number: [id number] Date:3908-69-39Jxzb Name:Medicare GAIL L MOOREDOB: [id number] [place] [id number] [facility] 12/10/2024 Secondary Insurance:[place]: [id number] Date:2020-08-24 KEITH GOODB: [id number] [place] [id number] [facility] EPIC 12/10/2024 KEITH WASHINGTONB: [place] [phone]: (HP) Primary Insurance:MEDICAREPoli cy Number: [id number] Date:5842-32-03Tsdt Name:Medicare GAIL L MOOREDOB: [id number] [place] [id number] [facility] EPIC 12/10/2024 Secondary Insurance[place]: [id number] Date:2020-08-24 KEITH GOODB: [id number] [place] [id number] [facility] EPIC 12/09/2024 KEITH WASHINGTONB: [place] [id number]: (HP) Primary Insurance:MEDICAREPoli cy Number: [id number] Date:9659-15-18Brpk Name:Medicare GAIL L MOOREDOB: [id number] [place] [id number] [facility] EPIC 12/09/2024 Secondary Insurance:[place]: [id number] Date:2020-08-24 KEITH WASHINGTONB: [id number] [place] [phone] [facility] EPIC 11/27/2024 KEITH W[place]B: [place] [address]Paz: (HP) Primary Insurance:MEDICAREPoli cy Number: [id number] Date:9819-77-63Gocg Name:Medicare GAIL L MOOREDOB: [id number] [place] [phone] [facility] EPIC 11/27/2024 Secondary Insurance:[place]: [id number] Date:2020-08-24 KEITH GOODB: [id number] [place] [phone] [facility] EPIC 11/24/2024 KEITH GOODB: [place] [phone]: (HP) Primary Insurance:MEDICAREPoli cy Number: [id number] Date:2747-70-22Bkik Name:Medicare GAIL L MOOREDOB: [id number] [place] [phone] [facility] EPIC 11/24/2024 Secondary Insurance:[place]: [id number] Date:2020-08-24 KEITH WASHINGTONDOB: [id number] [place] [phone] [facility] EP[facility] 11/10/2024 KEITH WASHINGTONDOB: [place] [id number]: (HP) Primary Insurance:MEDICAREPoli cy Number: [id number] Date:2832-01-03Ochs Name:Medicare GAIL L MOOREDOB: [id number] [place] [phone] [facility] EPIC 11/10/2024 Secondary Insurance:[place]: [id number] Date:2020-08-24 KEITH WASHINGTONDOB: [id number] [place] [phone] [facility] EPIC 11/03/2024 KEITH WASHINGTONDOB: [place] [address]Bhd: (HP) Primary Insurance:MEDICAREPoli cy Number: [id number] Date:9075-94-25Lzka Name:Medicare GAIL L MOOREDOB: [id number] [place] [phone] [facility] EPIC 11/03/2024 Secondary Insurance:[place] Number: [id number] Date:2020-08-24 KEITH GOODB: [id number] [place] [phone] [facility] EPIC 10/23/2024 KEITH WASHINGTONDOB: [place] [address]Mql: (HP) Primary Insurance:MEDICAREPoli cy Number: [id number] Date:4022-61-58Xidw Name:Medicare GAIL L MOOREDOB: [id number] [place] [id number] [facility] EPIC 10/23/2024 Secondary Insurance[place]: [id number] Date:2020-08-24 KEITH WASHINGTONDOB: [id number] [place] [phone] [facility] EPIC 10/22/2024 KEITH WASHINGTONDOB: [place] [id number]: (HP) Primary Insurance:MEDICAREPoli cy Number: [id number] Date:0087-69-91Bihe Name:Medicare GAIL L MOOREDOB: [id number] [place] [phone] [facility] EP[facility] 10/22/2024 Secondary Insurance[place]: [id number] Date:2020-08-24 KEITH WASHINGTONDOB: [id number] [place] [phone] [facility] EPIC 10/15/2024 KEITH WASHINGTONDOB: [place] [address]Dmp: (HP) Primary Insurance:MEDICAREPoli cy Number: [id number] Date:5524-12-97Hlnu Name:Medicare GAIL L MOOREDOB: [id number] [place] [id number] [facility] EPIC 10/15/2024 Secondary Insurance:[place]: [id number] Date:2020-08-24 KEITH WASHINGTONDOB: [id number] [place] [phone] [facility] EPIC 09/04/2024 KEITH WASHINGTONDOB: [place] [id number]: (HP) Primary Insurance:MEDICAREPoli cy Number: [id number] Date:4219-52-65Kxdj Name:Medicare GAIL L MOOREDOB: [id number] [place] [phone] [facility] EPIC 09/04/2024 [place] Insurance[place]: [id number] Date:2020-08-24 KEITH WASHINGTONDOB: [id number] [place] [phone] [facility] EP[facility] 08/20/2024 KEITH WASHINGTONDOB: [place] [id number]: (HP) Primary Insurance:MEDICAREPoli cy Number: [id number] Date:2461-53-50Vjzp Name:Medicare KEITH WASHINGTONDOB: [id number] [place] [id number] [facility] 08/20/2024 Secondary Insurance[place]: [id number] Date:2020-08-24 KEITH WASHINGTONDOB: [id number] [place] [phone] [facility] EP[facility] 08/19/2024 KEITH WASHINGTONDOB: [place] [address]Aqd: (HP) Primary Insurance:MEDICAREPoli cy Number: [id number] Date:6411-93-97Qwee Name:Medicare GAIL L MOOREDOB: [id number] [place] [phone] [facility] EP[facility] 08/19/2024 Secondary Insurance[place]: [id number] Date:2020-08-24 KEITH WASHINGTONB: [id number] [place] [phone] [facility] EP[facility] 07/21/2024 KEITH WASHINGTONB: [place] [id number]: (HP) Primary Insurance:MEDICAREPoli cy Number: [id number] Date:8658-80-58Poay Name:Medicare GAIL L MOOREDOB: [id number] [place] [phone] [facility] EP[facility] 07/21/2024 Secondary Insurance[place]: [id number] Date:2020-08-24 KEITH WASHINGTONB: [id number] [place] [phone] [facility] 07/07/2024 KEITH WASHINGTONB: [place] [id number]: (HP) Primary Insurance:MEDICAREPoli cy Number: [id number] Date:0697-39-81Xcev Name:Medicare KEITH GOODB: [id number] [place] [phone] [facility] 07/07/2024 Secondary Insurance[place]: [id number] Date:2020-08-24 KEITH WASHINGTONB: [id number] [place] [phone] [facility] EPIC 06/03/2024 KEITH LEDBETTERGustavo GOODB: [place], [place] [address]Pbe: (HP) Primary Insurance:MEDICARE PART A & BPolicy Number: [id number] Date:2006-12-23 KEITH PIERSON: [id number] [place], [place] [address]Fsz: (HP) [facility] 06/03/2024 Secondary Insura nce:[place] MEDICA[place]Policy Number: [id number] Date:2020-08-24 KEITH PIERSON: [id number] [place], [place] [address]Zwn: (HP) [facility] 06/02/2024 KEITHCHRIS PIERSON: [place], [place] [address]Stu: (HP) Primary Insurance:MEDICARE PART A & BPolicy Number: [id number] Date:2006-12-23 KEITH PIERSON: [id number] [place], [place] [address]Wqr: (HP) [facility] 06/02/2024 Secondary Insura nce:[place] MED[place] Number: [id number] Date:2020-08-24 KEITH PIERSON: [id number] [place], [place] [address]Vep: (HP) [facility] 06/02/2024 KEITH PIERSON: [place], [place] [address]Jas: (HP) Primary Insurance:MEDICARE PART A & BPolicy Number: [id number] Date:2006-12-23 KEIHT PIERSON: [id number] [place], [place] [address]Dhh: (HP) [facility] 06/02/2024 Secondary Insura nce:[place] MED[place] Number: [id number] Date:2020-08-24 KEITH PIERSON: [id number] [place], [place] [address]Ecc: (HP) [facility] 06/02/2024 KEITH HOPE KENNA: [place], [place] [address]Dfc: (HP) Primary Insurance:MEDICARE PART A & BPolicy Number: [id number] Date:2006-12-23 KEITH HOPE KENNA: [id number] [place], [place] [address]Tqs: (HP) [facility] 06/02/2024 Secondary Insura nce:[place] MED[place] Number: [id number] Date:2020-08-24 KEITH HOPE KENNA: [id number] [place], [place] [address]Fhr: (HP) [facility] 05/27/2024 KEITH Singh KENNA: [place] [address]Gbz: (HP) Primary Insurance:MEDICAREPoli cy Number: [id number] Date:7562-98-84Ppfs Name:Medicare GAIL L MOOREMARIE: [id number] [place] [address] [facility] 05/27/2024 Secondary Insurance[place] Number: [id number] Date:2020-08-24 KEITH Singh KENNA: [id number] [place] [address] [facility] 05/05/2024 KEITH Singh KENNA: [place] [address]Hom: (HP) Primary Insurance:MEDICAREPoli cy Number: [id number] Date:2598-99-43Vyts Name:Medicare GAIL L MOOREMARIE: [id number] [place] [address] [facility] 05/05/2024 Secondary Insurance:[place] Number: [id number] Date:2020-08-24 KEITH GOODB: [id number] [place] [address] [facility] EPIC 04/28/2024 KEITH GOODB: [place] [address]Acu: (HP) Primary Insurance:MEDICAREPoli cy Number: [id number] Date:2706-82-71Hccj Name:Medicare GAIL L MOOREDOB: [id number] [place] [address] [facility] 04/28/2024 Secondary Insurance[place]: [id number] Date:2020-08-24 KEITH WASHINGTONB: [id number] [place] [phone] [facility] EP[facility] 01/14/2024 KEITH WASHINGTONB: [place] [address]Xxy: (HP) Primary Insurance:MEDICAREPoli cy Number: [id number] Date:2171-02-88Jmve Name:Medicare GAIL L MOOREDOB: [id number] [place] [id number] [facility] EP[facility] 01/14/2024 Secondary Insurance[place]: [id number] Date:2020-08-24 KEITH WASHINGTONB: [id number] [place] [id number] [facility] EPIC
[2024-12-26 06:58] VITALS: BP 122/59; PULSE 57; TEMP 35.9; O2SAT 97; BMI 36.7
[2024-12-26 07:10] LABS: Glucometer 122 mg/dL (74-106)
[2024-12-26] MEDS: LACTATED RINGER'S SOLUTION 1,000 ML 50 ML IV (07:14)
[2024-12-26] MEDS: ALBUTEROL SULFATE 2.5 MG/3 ML VIAL NEB IH (07:20)
--- NOTE | 2024-12-26 08:50 | PM.ONB ---
Brief Operative Note Date of procedure: 12/26/24 Pre-op diagnosis general: pmb Post-op diagnosis: same as pre-op Procedure: NAME OF PROCEDURE: [ D&c hysteroscopy with myosure] PROCEDURE: The patient was taken back to the Operating Room where she was prepped and draped in normal sterile fashion after being placed under general anesthesia without difficulty. She was also placed in the dorsal lithotomy position. A weighted speculum was placed in the patient?s vagina. The anterior lip of the cervix was identified and grasped with a single tooth tenaculum. The patient?s uterus was then sounded roughly to [? 8] cm. The patient was then gently dilated using Hegar dilators. The hysteroscope was passed through the patient?s cervix into the uterus. Both ostia were identified. fluffy appearing endometrium. No gross evidence of malignancy, no gross evidence of polyps or fibroids. The myosure apparatus was placed through the scope, The myosure was engaged and endometrial curretting were removed , The hysteroscope was then removed from the uterus. The endometrial curettings were sent out to pathology. The single tooth tenaculum was then removed from the patient's anterior lip of the cervix where excellent hemostasis was noted. All instruments were removed from the patient?s vagina. The patient tolerated the procedure well. Sponge, lap and needle counts were correct times two. The patient was taken to the Recovery Room in stable condition.Room in stable condition. Anesthesia: CHELA Surgeon: Will Carson Estimated blood loss (mL): 5 Pathology: other (endometrial currettings) Condition: stable Disposition: PACU Urinary Catheter Management Urinary Catheter Management Urethral: Cath placed during this visit: no
[2024-12-26 08:56] VITALS: BP 140/77; PULSE 87; TEMP 36.8; O2SAT 94
[2024-12-26 09:11] VITALS: BP 152/73; PULSE 57; O2SAT 95
[2024-12-26 09:26] VITALS: BP 141/81; PULSE 53; O2SAT 96
== END 2024-12-26 09:38 | disposition home or self-care (01) ==
PROVIDERS: PCP Family Medicine; Visit Provider Obstetrics & Gynecology
PROC: (CPT 58558; principal; 2024-12-26 08:05)
DX: N95.0 Postmenopausal bleeding (principal); N94.10 Unspecified dyspareunia; N95.1 Menopausal and female climacteric states; N93.0 Postcoital and contact bleeding; Z90.49 Acquired absence of other specified parts of digestive tract; F17.210 Nicotine dependence, cigarettes, uncomplicated; J44.9 Chronic obstructive pulmonary disease, unspecified; R06.09 Other forms of dyspnea; E78.5 Hyperlipidemia, unspecified; I10 Essential (primary) hypertension; Z86.73 Personal history of transient ischemic attack (TIA), and cerebral infarction without residual deficits; M79.7 Fibromyalgia; K21.9 Gastro-esophageal reflux disease without esophagitis; E11.9 Type 2 diabetes mellitus without complications; E07.9 Disorder of thyroid, unspecified
CPT/HCPCS: 58558; 36415; 82948; 85025; 88305; 94640; J1885; J2250; J2704; J3010

== ENCOUNTER 2025-03-01 11:41 | Emergency (ER) | payer MEDICARE, MEDICAID, SELFPAY ==
[2025-03-01 11:45] VITALS: BP 151/101; PULSE 73; TEMP 36.7; O2SAT 98; BMI 36.3
--- OUTSIDE RECORDS SUMMARY | 2025-03-01 11:47 | XMS_ITS | CCD ---
Author Organization [facility] CliniSypr Care Team Providers Care Customer Accounts Advisor Name Role Phone GUIDO, DR HUMPHREY Butler [...] Primary Care Unavailable ARIAS, JAYNE Attending Unavailable AIRAS, JAYNE Admitting Unavailable Zieber, DR Brantley Consulting [...] Primary Care Unavailable RAMONE OKEEFE Consulting Unavailable SARAH EDWIGELEIGHA Caldwell Primary Care Physician Dax Block Referring Unavailable Dax Block Attending Unavailable Dax Block Admitting Unavailable Erik Smith MD Primary Care Provider Erik Smith MD Unavailable CELIO BROWN Attending Unavailable SARAH EDWIGELEIGHA M Referring Unavailable Sunday PER DIEM PHYSICAL THERAPIST ASSISTANT, Vidya Unavailable Coco Paula RN Unavailable Unavailable Primary Care Provider Unavailabl e Nisa RAMIREZ, Coco Unavailable Pringle PER DIEM PHYSICAL THERAPIST ASSISTANT, Lulú Unavailable Unavailable Michelle Nunez Unavailable Erik Smith MD Primary Care Provider Isak Castillo MD Attending Provider [phone] Will Carson DO Attending Provider Will Carson Admitting Unavailable Sarah Edwigeleigha M Primary Care Unavailable Will Carson Attending Unavailable Isak Castillo Attending Unavailab Isak Olivera Admitting Unavailab le Sarah Erik M Primary Care Unavailable JAYNE IBANCHI Attending Unavailable JAYNE BIANCHI Attending Unavailable AMARILIS ALVARENGA Attending Unavailable AMARILIS ALVARENGA Attending Unavailable WILL CARSON Attending Unavailable AMARILIS ALVARENGA Attending Unavailable MICHELLE CUENCA Attending Unavailable AMARILIS ALVARENGA Attending Unavailable AMARILIS ALVARENGA Attending Unavailable WILL CARSON Referring Unavailable WILL CARSON Attending Unavailable MICHELLE CUENCA Attending Unavailable JULIA CHEN Attending Unavailable WILL CARSON Attending Unavailable JULIA CHEN Attending Unavailable ERIK SMITH Attending Unavailable AMARILIS ALVARENGA Attending Unavailable MICHELLE CUENCA Attending Unavailable MADISON VIEIRA Attending Unavailable MICHELLE CUENCA Attending Unavailable JULIA CHEN Attending Unavailable Allergies Allergy Classification Reported Allergen(s) Allergy Type Date of Onset Reaction(s) Facility (2 sources) Azithromycin; Translations: [Zithromax] Drug Allergy [facility] Repository (1 source) Cephalexin Drug Allergy 03-12-20 21 [facility] (1 source) Corticosteroids Drug allergy (disorder) [facility] (3 sources) Morphine; Translations: [morphine] Drug Allergy 11-22-19 16 [facility] (2 sources) moxifloxacin; Translations: [Avelox] Drug Allergy [facility] (2 sources) Nitrofurantoin; Translations: [Macrobid] Drug Allergy [facility] (20 sources) Azithromycin; Translations: [azithromycin] Drug Allergy 11-22-19 16 Eruption of skin (disorder), Unknown, Rash, Other (See Comments) [facility] (20 sources) Morphine; Translations: [morphine] Drug Allergy 11-22-19 16 Vomiting (disorder), Unknown, Other (See Comments), Vomiting [facility] (20 sources) moxifloxacin; Translations: [moxifloxacin] Drug Allergy 11-22-19 16 Eruption of skin (disorder), Rash, Unknown, Other (See Comments) [facility] (2 sources) NITROFURANTOIN, MACROCRYSTALS / Nitrofurantoin, Monohydrate; Translations: [nitrofurantoin] Drug Allergy 11-22-19 16 Skin irritation (disorder), Rash, Other (See Comments) General [facility] (20 sources) Cephalexin; Translations: [CEPHALEXIN] Drug Allergy 04-15-20 23 Rash [facility] (20 sources) Corticosteroids and derivatives Drug Allergy 11-22-19 16 Unknown [facility] (20 sources) Nitrofurantoin; Translations: [NITROFURANTOIN] Drug Allergy 11-22-19 16 Unknown, Other (See Comments) [facility] (20 sources) Nitrofurantoin Drug Allergy 04-15-20 23 Unknown [facility] (2 sources) Corticosteroids; Translations: [CORTICOSTEROIDS (GLUCOCORTICOIDS)] [...] oral tablet (20 sources) Opioid Agonist Start: 01-20-2025 End: 02-19-2025 take 1 tablet by mouth twice daily as needed for pain oxyCODONE-acetaminop hen (Percocet) 5-325 MG tablet Indications: Degeneration of intervertebral disc of lumbar region with discogenic back pain , Neck pain Take 1 tablet by mouth 2 (two) times a day as needed for severe pain 60 tablet 01/20/2025 02/19/2025 Active Start: 12-11-2024 End: 01-10-2025 take 1 tablet by mouth once oxyCODONE-acetaminophen [...] BID Pain 1-5, Refill(s) 0 Start Date: 6/22/20 Status: Ordered take 1 tablet by clif th every twelve hours oxyCODONE-acetaminophen (Percocet) 5-325 MG tablet Take 1 tablet by mouth every 12 (twelve) hours. PRN 0 Active [id number] 200 actuat albuterol 0.09 mg/actuat metered dose [...] without long-term current use of insulin (CMS/HCC) TAKE 1 TABLET BY MOUTH EVERY DAY 100 tablet 3 10/27/2024 Active Start: 11-15-2023 empagliflozin (Jardiance) 10 MG Indications: Type 2 diabetes mellitus with stage 2 chronic kidney disease, without long-term current use of insulin (CMS/HCC) TAKE 1 TABLET BY MOUTH EVERY DAY FOR 90 DAYS 100 tablet 3 11/15/2023 Active escitalopram 20 mg oral tablet (20 sources) Serotonin Reuptake Inhibitor Start: 03-15-2020 take 1 tablet by mouth once daily escitalopram (Lexapro) 20 MG tablet Take 1 tablet by mouth 1 (one) time each day. 03/21/2023 Active estradiol 0.1 mg/ml vaginal cream (12 sources) Estrogen Start: 11-10-2024 estradiol (Est race) 0.1 MG/GM vaginal cream PLEASE SEE ATTACHED FOR DETAILED DIRECTIONS 11/10/2024 Active Start: 11-10-2024 End: 12-10-2024 estradiol (Estrace) 0.1 MG/G M vaginal cream Indications: Menopausal state Insert 2 g into the vagina Daily Apply 1/2 APPLICATOR daily for 2 weeks, then twice weekly thereafter for maintenance. 42.5 g 3 11/10/2024 12/10/2024 Active fluticasone propionate 0.05 mg/actuat metered dose nasal spray (20 sources) Corticosteroid fluticasone (Matt nase) 50 MCG/ACT nasal spray 1 spray 1 (one) time each day at the same time PRN Active fluticasone 0.05 mg/inh Nasal [place] (1 source) Start: 020 fluticasone 0.05 mg/inh Nasal [place] 1 spray(s), Nasal, BID, Refill(s) 0 Start Date: 03/15/20 Status: Ordered ibuprofen 800 mg oral tablet (20 sources) Nonsteroidal Anti-inflammatory Drug Start: 023 ibuprofen 800 MG tablet PRN 06/06/2023 Active Lactobacillus-Inulin (CULTURELLE DIGESTIVE DAILY PO) (20 sources) take 1 tablet by mouth once daily Lactobacillus-Inulin (CULTURELLE DIGESTIVE DAILY PO) Take 1 tablet by mouth 1 (one) time each day Active levothyroxine sodium 0.075 mg oral tablet (20 sources) l-Thyroxine Start: 024 take 1 tablet by mouth once daily [...] (20 sources) Nonsteroidal Anti-inflammatory Drug Start: 03-15-2020 End: 12-17-2024 take 1 tablet by mouth once daily meloxicam (Mobic) 15 MG tablet Indications: Degeneration of intervertebral disc of lumbar region with discogenic back pain , Neck pain Take 1 tablet (15 mg) by mouth Daily 30 tablet 2 12/17/2024 Active MOUNJARO 2.5 mg/0.5 mL pen injector (1 [...] (20 sources) Proton Pump Inhibitor Start: 03-15-2020 End: 12-18-2024 take 1 capsule by mouth before mealtime omeprazole (PriLOSEC) [address] capsule Indications: Gastroesophageal reflux disease without esophagitis Take 1 capsule (20 mg) by mouth in the morning. Take before meals. 100 capsule 3 10/30/2023 12/18/2024 Discontinued (Other) ondansetron 4 mg oral tablet (20 sources) Serotonin-3 Receptor Antagonist Start: 01-06-2025 take 1 tablet by mouth once ondansetron (Zofran) 4 MG tablet Indications: Nausea Take 1 tablet (4 mg) by mouth every 12 (twelve) hours if needed for nausea 20 tablet 2 01/06/2025 Active Start: 10-30-2023 take 1 tablet by mouth once on dansetron (Zofran) 4 MG tablet Indications: Nausea Take [...] 04/21/2024 Active Tirzepatide (Mounjaro) 5 MG/0.5ML solution auto-injector (5 sources) Start: 01-02-2025 Tirzepatide (M ounjaro) 5 MG/0.5ML solution auto-injector Indications: Type 2 diabetes mellitus with stage 2 chronic kidney disease, without long-term current use of insulin (CMS/HCC) Inject 5 mg under the skin every 7 (seven) days 2 mL 5 01/02/2025 Active Tirzepatide (Mounjaro) 5 MG/0.5ML solution pen-injector (1 source) Start: 09-21-2023 Tirzepatide (M ounjaro) 5 MG/0.5ML solution pen-injector Indications: Type 2 diabetes mellitus with stage 2 chronic kidney disease, without long-term current use of insulin (CMS/HCC) INJECT 5 MG UNDER THE SKIN ONE TIME PER WEEK 2 mL 2 09/21/2023 Active Tirzepatide 5 MG/0.5ML solut ion pen-injector (20 sources) Start: 06-04-2024 End: 01-02-2025 Tirzepatide 5 MG/0.5ML solut ion pen-injector Indications: Type 2 diabetes mellitus with stage 2 chronic kidney disease, without long-term current use of insulin (CMS/HCC) Inject 5 mg under the skin 1 (one) time per week 2 mL 2 06/04/2024 01/02/2025 Discontinued (Duplicate order) Start: 06-04-2024 Tirzepatide 5 MG/0.5ML solution pen-injector [...] disease, without long-term current use of insulin ([facility]) Inject 5 mg under the skin 1 (one) time per week 2 mL 2 06/04/2024 Active tiZANidine 4 mg oral tablet (20 sources) Central alpha-2 Adrenergic Agonist Start: 01-20-2025 take 0.5-1 tablets by mouth once daily in the morning, then take 1 tablet by mouth at bedtime tiZANidine (Zanaflex) 4 MG tablet Indications: Degeneration of intervertebral disc of lumbar region with discogenic back pain , Neck pain TAKE 1/2 TO 1 TABLET BY MOUTH EVERY MORNING AND 1 TABLET AT BEDTIME 180 tablet 1 01/20/2025 Active Start: 12-17-2024 End: 01-20-2025 take 0.5 tablet by mouth once daily in the morning, then take 1 tablet by mouth at bedtime tiZANidine (Zanaflex) 4 MG tablet Indications: Degeneration of intervertebral disc of lumbar region with discogenic back pain , Neck pain Take 1/2 -1 tab PO QAM and 1 tab PO at bedtime 60 tablet 2 12/17/2024 01/20/2025 Discontinued Start: 03-25-2023 End: 12-17-2024 take 1 tablet by mouth every eight hours as needed tiZANidine (Zanaflex) 4 MG tablet Take 1 tablet by mouth every 8 (eight) hours if needed for muscle spasms. 03/25/2023 12/17/2024 Discontinued (Reorder) Start: 03-15-2020 take 1 tablet by clif twice daily as needed for muscle spasms [...] day at the same time 1 each 09/04/2024 Active Problems Active Problems Problem Classification [...] disorder] Onset: 08-22-2021 03-15-2020 Chronic Menopausal disorders (4 sources) Menopausal syndrome; Translations: [Menopausal and female climacteric states] 11-10-2024 Chronic Menstrual disorders (4 sources) Excessive and frequent menstruation with regular cycle; Translations: [EXCESS FREQ MENSTRUATION W/REG CYCL] Onset: 07-22-2022 Chronic Mood disorders (20 sources) Major depressive disorder, single episode, unspecified; Translations: [Depressive disorder] Onset: 11-22-2015 Resolved: 09-04-2024 03-15-2020 Chronic Other aftercare (8 sources) Patient encounter status; Translations: [Other keno terminal operator (current) drug therapy] 07-21-2024 Episodic Other aftercare (4 sources) Surgical follow-up; Translations: [Encounter for surgical aftercare following surgery on the sense organs] 11-03-2024 Episodic Other connective tissue disease (9 sources) Pain in left arm; Translations: [Pain [...] 04-15-2023 04-15-2023 Chronic Other female genital disorders (19 sources) Postcoital bleeding; Translations: [Postcoital and contact bleeding] Onset: 11-10-2024 11-10-2024 Chronic Other female genital disorders (2 sources) Pain in female genitalia on intercourse; Translations: [Unspecified dyspareunia] 12-18-2024 Chronic Other gastrointestinal disorders (1 source) Irritable [...] 04-15-2023 Episodic Other aftercare (1 source) Other [facility] (current) drug therapy; Translations: [OTH SNF CURRENT DRUG THERAPY] Onset: 04-14-2022 Episodic Other [...] Test Name Value Interpretation Reference Range Facility ALL CBC WITH AUTO DIFFon BASOPHILS ABSOLUTE AUTO 0.1 [facility] Basophils/100 WBC (Bld) 1.1 % 0.2 - 2.0 % [facility] Eosinophils/100 WBC (Bld) 1.8 % 0.9 - 7.0 % [facility] Erythrocyte distribution width (RBC) [Ratio] 13 % 11.0 - 15.0 % [facility] Hematocrit (Bld) [Volume fraction] 48.2 % High 36.0 - 48.0 % [facility] Hemoglobin (Bld) [Mass/Vol] 16 g/dL 12.0 - 16.0 g/dL [facility] IMMATURE GRANULOCYTES ABS AUTO 0.01 [facility] Immature granulocytes/100 WBC (Bld) 0.2 % 0.0 - 0.5 % [facility] Interpretation and review of laboratory results Abnormal [facility] LYMPHOCYTES ABSOLUTE AUTO 3.4 [facility] Lymphocytes/100 WBC (Bld) 55 % 20.5 - 60.0 % [facility] MCH (RBC) [Entitic mass] 29.2 pg 26.7 - 34.0 pg [facility] MCHC (RBC) [Mass/Vol] 33.2 g/dL 29.9 - 35.2 g/dL [facility] MCV (RBC) [Entitic vol] 88 fL 81.0 - 99.0 fL [facility] MONOCYTES ABSOLUTE AUTO 0.6 [facility] Monocytes/100 WBC (Bld) 9 % 1.7 - 12.0 % [facility] NEUTROPHILS ABSOLUTE AUTO 2 [facility] Neutrophils/100 WBC (Bld) 32.9 % Low 43.0 - 75.0 % [facility] Platelet mean volume (Bld) [Entitic vol] 9.6 fL 9.5 - 13.5 fL [facility] TBH EO # 0.1 [facility] PLT 243 [facility] RBC 5.48 High [facility] WBC 6.2 [facility] Eulogio 12-26-2024 L - -------- Specimen: [id number] Received: 12/26/24 Status: MARCIE Jackson Num: [id number] Spec Type: Surgical Subm Dr: Will Carson Tissues: A Endometrium - Curettings (ENDOMETRIAL CURRETTINGS) Procedures: HE/2, Gross/Micro L4 -------- Age/ Patient Sex Location Account Attending Physician -------- Keith Washington 54/F LABELL [id number] Will Carson -------- SPEC NUM: [id number] RECD: 12/26/24 STATUS: MARCIE JACKSON NUM: [id number] JOSEMANUEL: 12/26/2450 [facility] DR: Will Carson ENTERED: 12/26/[address] [facility] [address]: Nenita,Lab SPEC TYPE: Surgical DEPT: RAYMOND CALLAHAN ENTERED BY: [id number] RECV BY: [id number] ORDERED: HE/2, Gross/Micro L4 ORDERED: HE/2, Gross/Micro L4 Pathological Diagnosis Endometrium, Currettage: Benign weakly proliferative to inactive endometrium. Negative for hyperplasia, malignancy and chronic endometritis Clinical Information Menopausal state, dyspareunia, bleeding after intercourse Gross Description Part A is received in formalin labeled with the patients name, date of , and endometrial curettings is and aspiration device with amador-pink to red-brown, delicate tissue fragments, 1.3 x 0.8 x 0.2 cm in aggregate. The specimen is filtered and entirely submitted in a single cassette. (1, ns, [id number]) JG -------- -------- Specimen: [id number] Received: 12/26/24 Status: MARCIE Jackson Num: [id number] Spec Type: Surgical Subm Dr: Will Carson Tissues: A Endometrium - Curettings (ENDOMETRIAL CURRETTINGS) Procedures: ALEX/Agapito Mejia/Armaan Ortiz -------- Patient: Keith Washington [id number] (Continued) -------- Signed (signature on file) Day Myles MD 12/29/24 1215 Normal [facility] - Hematology and Cell countson 12-18-2024 HbA1c (Bld) [Mass fraction] 5.6 % [facility] No Panel Informationon 12-18 Interpretation and review of laboratory results Normal [facility] US PELVIC COMPLETE W/ TVon 0 12-10-2024 [...] II, MD, PHD at 11-Dec-2024 08:46:31 AM [facility] Normal Not Available Comment on above: Order Comment: US PE LVIS-TRANSVAG IF INDICATED No LMP recorded. Patient is premenopausal. LIPID PANEL, STANDARDon 09-25 Cholesterol [Mass/Vol] 249 mg/dL High <200 [facility] Comment on above: Order Comment: FASTI NG:YES FASTING: YES Performed By: #### 7 600 #### [facility] [address], [address] [place] [id number] Dry Boss: Luca Guajardo MD Cholesterol in HDL [Mass/Vol] 48 mg/dL Low > OR = 50 [facility] Comment on above: Order Comment: FASTI NG:YES FASTING: YES Performed By: #### 7 600 #### [facility] [address], [address] [place] [address] Dry Boss: Luca Guajardo MD Cholesterol in LDL [Mass/Vol] [...] LDL-C. Bill SS et al. NOÉ. 2013;310(19): 5323-9273 (http://education.payworks/faq/GLH029) Performed By: #### 7 600 #### [facility] [address], [address] [place] [address] Dry Boss: Luca Guajardo MD Cholesterol.total/Cho lesterol in HDL [Mass ratio] 5.2 {ratio} High <5.0 [facility] Comment on above: Order Comment: FASTI NG:YES FASTING: YES Performed By: #### 7 600 #### [facility] [address], [address] [place] [address] Dry Boss: Luca Guajardo MD NON HDL CHOLESTEROL 201 mg/dL (calc) High <130 [facility] Comment on above: Order Comment: FASTI NG:YES FASTING: YES Result Comment: For patients with diabetes plus 1 major ASCVD risk factor, treating to a non-HDL-C goal of <100 mg/dL (LDL-C of <70 mg/dL) is considered a therapeutic option. Performed By: #### 7 600 #### [facility] [address], [address] [place] [address] Dry Boss: Luca Guajardo MD Triglyceride [Mass/Vol] 247 mg/dL High <150 [facility] Comment on above: Order Comment: FASTI NG:YES FASTING: YES Result Comment: If a non-fasting specimen was collected, consider repeat triglyceride testing on a fasting specimen if clinically indicated. Crista et al. J. of Clin. Lipidol. 2015;9:129-169. Performed By: #### 7 600 #### [facility] [address], [address] [place] [address] Dry Boss: Luca Guajardo MD EMG 2 Extremitieson 08-20-20 24 [facility] NVC 11-12 Nerveson 4 [facility] Ptosis Visual Field, Limited - OU - [...] [facility] Radiology Study observation (narrative) [facility] Physician Orderon 06-05-2023 Physician Order [id number] .[id number]:127 Normal [facility] BMPon 05-09-2023 Anion gap [Moles/Vol] 10 mmol/L Normal 6-16 [facility] Comment on above: Performed By: #### 2 [id number], [id number], [id number] #### [facility] [address] [place] [address] Calcium [Mass/Vol] 9.1 mg/dL Normal 8.9-11.1 [facility] Comment on above: Performed By: #### 2 [id number], [id number], [id number] #### [facility] [address] [place] [address] Chloride [Moles/Vol] 104 mmol/L Normal 101-111 [facility] Comment on above: Performed By: #### 2 238324, [id number], [id number] #### [facility] [address] [place] [address] CO2 [Moles/Vol] 27 mmol/L Normal 21-31 [facility] Comment on above: Performed By: #### 2 307018, [id number], [id number] #### [facility] [address] [place] [address] Creatinine [Mass/Vol] 0.7 mg/dL Normal 0.5-1.3 [facility] Comment on above: Performed By: #### 2 892145, [id number], [id number] #### [facility] [address] [place] [address] Glucose [Mass/Vol] 136 mg/dL Normal 55-199 [facility] Comment on above: Result Comment: If t his glucose result represents a fasting glucose, interpretation should refer to the following reference range: 55-99 mg/dL Performed By: #### 2 720623, [id number], [id number] #### [facility] [address] [place] [address] Potassium [Moles/Vol] 4.4 mmol/L Normal 3.5-5.3 [facility] Comment on above: Performed By: #### 2 935596, [id number], [id number] #### [facility] [address] [place] [address] Sodium [Moles/Vol] 137 mmol/L Normal 135-145 [facility] Comment on above: Performed By: #### 2 499785, [id number], [id number] #### [facility] [address] [place] [address] Urea nitrogen [Mass/Vol] 8 mg/dL Normal 5-21 [facility] Comment on above: Performed By: #### 2 808621, [id number], [id number] #### [facility] [address] [place] [address] Urea nitrogen/Creatinine [Mass ratio] 11 No Units Normal 10-20 [facility] Comment on above: Performed By: #### 2 334006, [id number], [id number] #### [facility] [address] [place] [address] CBC w/Indiceson 05-09-2023 Erythrocyte distribution width (RBC) [Ratio] 14.6 % High 10.9-14.2 [facility] Comment on above: Performed By: #### 2 475363, [id number], 3776141 #### [facility] [address] [place] [address] Hematocrit (Bld) [Volume fraction] 43.8 % Normal 34.0-46.0 [facility] Comment on above: Performed By: #### 2 801575, [id number], [id number] #### [facility] [address] [place] [address] Hemoglobin (Bld) [Mass/Vol] 14.9 g/dL Normal 12.0-16.0 [facility] Comment on above: Performed By: #### 2 093037, [id number], 8360713 #### [facility] [address] [place] [address] MCH (RBC) [Entitic mass] 29.2 pg Normal 27.0-34.0 [facility] Comment on above: Performed By: #### 2 836665, [id number], [id number] #### [facility] [address] [place] [address] MCHC (RBC) [Mass/Vol] 34.0 g/dL Normal 31.4-36.0 [facility] Comment on above: Performed By: #### 2 537760, [id number], 3006757 #### [facility] [address] [place] [address] MCV (RBC) [Entitic vol] 86.1 fL Normal 80.0-100.0 [facility] Comment on above: Performed By: #### 2 001692, [id number], 9883075 #### [facility] [address] [place] [address] Platelet mean volume (Bld) [Entitic vol] 8.3 fL Normal 6.4-10.8 [facility] Comment on above: Performed By: #### 2 886993, 05443881, 5138791 #### [facility] [address] [place] [address] Platelets (Bld) [#/Vol] 229.0 E9/L Normal 150.0-500.0 [facility] Comment on above: Performed By: #### 2 679957, 16597399, 1857566 #### [facility] [address] [place] [address] RBC (Bld) [#/Vol] 5.1 E12/L Normal 4.3-5.9 [facility] Comment on above: Performed By: #### 2 061407, [id number], [id number] #### [facility] [address] [place] [address] WBC corrected for nucl RBC Auto (Bld) [#/Vol] 8.1 E9/L Normal 4.0-11.0 [facility] Comment on above: Performed By: #### 2 826668, [id number], [id number] #### [facility] [address] [place] [address] CHEMISTRYOrdered By: SYSTEM SYSTEM on 05-09-2023 Anion gap [Moles/Vol] 10 mmol/L Normal 6 - 16 mEq/L [facility] Calcium [Mass/Vol] 9.1 mg/dL Normal 8.9 - 11. 1 mg/dL [facility] Chloride [Moles/Vol] 104 mmol/L Normal 101 - 1 11 mmol/L [facility] CO2 [Moles/Vol] 27 mmol/L Normal 21 - 31 mmol/L [facility] Creatinine [Mass/Vol] 0.7 mg/dL Normal 0.5 - 1.3 mg/dL [facility] GFR/1.73 sq M.predicted among non-blacks MDRD (S/P/Bld) [Vol rate/Area] 103 mL/min/1.73 m2 Normal >=59mL/min/1. 73 m2 [facility] Chem S Glucose [Mass/Vol] 136 mg/dL Normal 55 - 199 mg/dL [facility] Remisol Potassium [Moles/Vol] 4.4 mmol/L Normal 3.5 - 5.3 mmol/L [facility] Remisol Sodium [Moles/Vol] 137 mmol/L Normal 135 - 145 mmol/L [facility] Urea nitrogen [Mass/Vol] 8 mg/dL Normal 5 - 21 mg/dL [facility] Urea nitrogen/Creatinine [Mass ratio] 11 mg/mg Normal 10 - 20 [facility]isol Consent for Treatmenton 04-24 Consent for Treatment [id number] .[id number]:127 Normal [facility] HEMATOLOGYOrdered By: Serjio Wolfe on 05-09-2023 [...] [Vol rate/Area] 103 mL/min/1.73 m2 Normal >=59 [facility] Comment on above: Order Comment: Order added by Discern Expert. Result Comment: Safety Attendant iona kidney disease could be indicated at eGFR's of less than 60 mL/min/1.73m2. Kidney failure is indicated at less than 15 mL/min/1.73m2. Performed By: #### 2 073443, [id number], [id number] #### [facility] [address] [place] [address] MRI ABDOMEN WO W CONon 08-15 MRI [...] AMAN THOMAS Date: 2022-08-15 09:36 Normal [facility] CREATININEon 08-11-2022 Creatinine [Mass/Vol] 0.79 mg/dL Normal 0.55-1.02 [facility] Comment on above: Performed By: #### G IPANEL #### [facility] [address], [place] [address] Dr. Steven Simon EGFR-AF BURUNDIAN >60 Normal >=60 [facility] Comment on above: Performed By: #### G IPANEL #### [facility] [address], [place] [address] Dr. Steven Simon EGFR-NON AF BURUNDIAN >60 Normal >=60 [facility] Comment on above: Performed By: #### G IPANEL #### [facility] [address], [place] [address] Dr. Steven Simon US PELVIS AND TRANSVAGon [...] HUMPHREY LORA Date: 2022-07-24 07:22 Normal [facility] XR CHEST 2 Von 04-20-2022 XR CHEST 2 V EXAM: XR CHEST 2 V HISTORY: Cough. COMPARISON: 04/13/2022 TECHNIQUE: Frontal and lateral chest FINDINGS: Heart and vascularity are unremarkable. Lungs are expanded and free of focal infiltrates. No acute bony abnormality is appreciated. IMPRESSION: No acute heart or lung disease identified. Electronically authenticated by: HUMPHREY ENNIS Date: 2022-04-20 07:59 Normal [facility] Covid-19 PCR (CVDTBH)on 03-25 SARS-CoV-2 (COVID-19) RNA TATIANA+probe Ql (Unsp spec) Not detected Normal NOT DETECTED The [facility] Comment on above: Result Comment: When diagnostic [...] for this test is supported by the [place] of Health and Human Service's declaration that [...] used). Performed By: #### G IPANEL #### [facility] [address] [address] [address] Steven Simon XR CHEST 1 Von [...] HUMPHREY LORA Date: 2022-04-13 10:15 Normal [facility] GIARDIA LAMBLIA AND CRYPTO D ETECTIONon 04-11-2022 Cryptosporidium EIA Negative Normal Negative [facility] Comment on above: Performed By: #### G IACRY #### [facility] [address] [place] [address] Dr. Steven Simon Giardia lamblia Ag, EIA Negative Normal Negative [facility] Comment on above: Performed By: #### G IACRY #### [facility] [address] [place] [address] Dr. Steven Simon OVA AND PARASITE EXAMINATION on 04-11-2022 O AND P Exam, Formalin Only Final report Normal [facility] Comment on above: Result Comment: Refe rence Range: None Seen No PVA preserved specimen received. For optimal O and P results we suggest the use of O and P kits containing both formalin and PVA. These kits are available from your guest service team leader. Performed By: #### E RUR #### [facility] [address] [place] [address] Dr. Steven Simon Result 1 Comment Normal [facility] Comment on above: Result Comment: No o va, cysts, or parasites seen. . One negative specimen does not rule out the possibility of a parasitic infection. Performed By: #### E RUR #### [facility] [address] [place] [address] Dr. Steven Simon CBC AUTO DIFFon 02-10-2022 BASO # 0.0 103/ul Normal 0.0-0.1 [facility] Comment on above: Performed By: #### C BC #### [facility] [address] [place] [address] Dr. Steven Simon Basophils/100 WBC (Bld) 0.2 % Normal 0.2-2.0 [facility] Comment on above: Performed By: #### C BC #### [facility] [address] [place] [address] Dr. Steven Simon EO # 0.0 103/ul Normal 0.0-0.7 [facility] Comment on above: Performed By: #### C BC #### [facility] [address] [place] [address] Dr. Steven Simon Eosinophils/100 WBC (Bld) 0.6 % Critically low 0.9-7.0 [facility] Comment on above: Performed By: #### C BC #### [facility] [address] [place] [address] Dr. Steven Simon Erythrocyte distribution width (RBC) [Ratio] 13.8 % Normal 11.0-15.0 [facility] Comment on above: Performed By: #### C BC #### [facility] [address] [place] [address] Dr. Steven Simon Hematocrit (Bld) [Volume fraction] 46.6 % Normal 36.0-48.0 [facility] Comment on above: Performed By: #### C BC #### [facility] [address] [place] [address] Dr. Steven Simon Hemoglobin (Bld) [Mass/Vol] 14.9 g/dL Normal 12.0-16.0 [facility] Comment on above: Performed By: #### C BC #### [facility] [address] [place] [address] Dr. Steven Simon IG # 0.02 10e3/ul Normal 0.00-0.03 [facility] Comment on above: Performed By: #### C BC #### [facility] [address] [place] [address] Dr. Steven Simon IG % 0.3 % Normal 0.0-0.5 [facility] Comment on above: Performed By: #### C BC #### [facility] [address] [place] [address] Dr. Steven Simon LYMPH # 1.4 103/ul Normal 1.2-3.8 [facility] Comment on above: Performed By: #### C BC #### [facility] [address] [place] [address] Dr. Steven Simon Lymphocytes/100 WBC (Bld) 21.4 % Normal 20.5-60.0 [facility] Comment on above: Performed By: #### C BC #### [facility] [address] [place] [address] Dr. Steven Simon MANUAL DIFF REQ NO Normal [facility] Comment on above: Performed By: #### C BC #### [facility] [address] [place] [address] Dr. Steven Simon MCH (RBC) [Entitic mass] 28.9 pg Normal 26.7-34.0 [facility] Comment on above: Performed By: #### C BC #### [facility] [address] [place] [address] Dr. Steven Simon MCHC (RBC) [Mass/Vol] 32.0 g/dL Normal 29.9-35.2 [facility] Comment on above: Performed By: #### C BC #### [facility] [address] [place] [address] Dr. Steven Simon MCV (RBC) [Entitic vol] 90.5 fL Normal 81.0-99.0 [facility] Comment on above: Performed By: #### C BC #### [facility] [address] [place] [address] Dr. Steven Simon MONO # 0.9 103/ul Critically high 0.3-0.8 [facility] Comment on above: Performed By: #### C BC #### [facility] [address] [place] [address] Dr. Steven Simon Monocytes/100 WBC (Bld) 13.7 % Critically high 1.7-12.0 [facility] Comment on above: Performed By: #### C BC #### [facility] [address] [place] [address] Dr. Steven Simon NEUT # 4.1 103/ul Normal 1.4-6.5 [facility] Comment on above: Performed By: #### C BC #### [facility] [address] [place] [address] Dr. Steven Simon Neutrophils/100 WBC (Bld) 63.8 % Normal 43.0-75.0 [facility] Comment on above: Performed By: #### C BC #### [facility] [address] [place] [address] Dr. Steven Simon Platelet mean volume (Bld) [Entitic vol] 9.9 fL Normal 9.5-13.5 [facility] Comment on above: Performed By: #### C BC #### [facility] [address] [place] [address] Dr. Steven Simon PLT 195 103/ul Normal 150-450 [facility] Comment on above: Performed By: #### C BC #### [facility] [address] [place] [address] Dr. Steven Simon RBC 5.15 106/ul Normal 4.20-5.40 [facility] Comment on above: Performed By: #### C BC #### [facility] [address] [place] [address] Dr. Steven Simon WBC 6.4 103/ul Normal 4.0-11.0 [facility] Comment on above: Performed By: #### C BC #### [facility] [address] [place] [address] Dr. Steven Simon Covid-19 PCR (CVDTBH)on 01-23 SARS-CoV-2 (COVID-19) RNA TATIANA+probe Ql (Unsp spec) Not detected Normal NOT DETECTED [facility] Comment on above: Result Comment: When diagnostic [...] for this test is supported by the [place] of Health and Human Service's declaration that [...] used). Performed By: #### C VDTBH #### [facility] [address] [place] [address] Dr. Steven Simon GI PANEL (PCR)on 02-10-2022 Adenovirus F 40/41 Not detected Normal NOT DETECTED Th [facility] Comment on above: Performed By: #### G IPANEL #### [facility] [address] [place] [address] Dr. Steven Simon Astrovirus Not detected Normal NOT DETECTED The [facility] Comment on above: Performed By: #### G IPANEL #### [facility] [address] [place] [address] Dr. Steven Brand. Diff toxin A/B Not detected Normal NOT DETECTED [facility] Comment on above: Performed By: #### G IPANEL #### [facility] [address] [place] [address] Dr. Steven Simon Campylobacter Not detected Normal NOT DETECTED The [facility] Comment on above: Performed By: #### G IPANEL #### [facility] [address] [address] [address] Steven Simon Cryptosporidium Not detected Normal NOT DETECTED [facility] Comment on above: Performed By: #### G IPANEL #### [facility] [address] [address] [address] Steven Simon Cyclos. Cayetanensis Not detected Normal NOT DETECTED [facility] Comment on above: Performed By: #### G IPANEL #### [facility] [address] [address] [address] Stevne Simon E. Coli O157 Not Applicable Normal Not Applicable [facility] Comment on above: Performed By: #### G IPANEL #### [facility] [address] [address] [address] Steven Simon E. histolytica Not detected Normal NOT DETECTED [facility] Comment on above: Performed By: #### G IPANEL #### [facility] [address] [place] [address] Dr. Steven Simon EAEC Not detected Normal NOT DETECTED The [facility] Comment on above: Performed By: #### G IPANEL #### [facility] [address] [place] [address] Dr. Steven Simon EIEC Not detected Normal NOT DETECTED The [facility] Comment on above: Performed By: #### G IPANEL #### [facility] [address] [place] [address] Dr. Steven Simon EPEC Not detected Normal NOT DETECTED The [facility] Comment on above: Performed By: #### G IPANEL #### [facility] [address] [place] [address] Dr. Steven Simon ETEC Not detected Normal NOT DETECTED The [facility] Comment on above: Performed By: #### G IPANEL #### [facility] [address] [place] [address] Dr. Steven Eason. Lamblia Not detected Normal NOT DETECTED The [facility] Comment on above: Performed By: #### G IPANEL #### [facility] [address] [address] [address] Steven MOSS CONTROLS PASSED Normal The [facility] Comment on above: Performed By: #### G IPANEL #### [facility] [address] [address] [address] Steven V[facility]OS [facility] HEADER GI PANEL BACTERIA Normal [facility] Comment on above: Performed By: #### G IPANEL #### [facility] [address] [address] [address] Steven CARDENAS ECOLI GI PANEL DIARRHEAGENIC E.COLI / SHIGELLA Normal [facility] Comment on above: Performed By: #### G IPANEL #### [facility] [address] [address] [address] Steven CARDENAS INFO SEE BELOW Normal [facility] Comment on above: Result Comment: EAEC - Enteroaggregative E. Coli EPEC- Enteropathogenic E. Coli ETEC- Enterotoxigenic E. Coli lt/st STEC- Shigella-like toxin-producing E. Coli stx1/stx2 EIEC- Shigella/Enteroinvasive E. Coli Performed By: #### G IPANEL #### [facility] [address] [place] [address] Dr. Steven CARDENAS PARASITES GI PANEL PARASITES Normal [facility] Comment on above: Performed By: #### G IPANEL #### [facility] [address] [address] [address] Steven CARDENAS VIRUS GI PANEL VIRUSES Normal [facility] Comment on above: Performed By: #### G IPANEL #### [facility] [address] [address] [address] Steven Simon Norovirus GI/GII Not detected Normal NOT DETECTED The [facility] Comment on above: Performed By: #### G IPANEL #### [facility] [address] [place] [address] Dr. Steven Simon P. Shigelloides Not detected Normal NOT DETECTED [facility] Comment on above: Performed By: #### G IPANEL #### [facility] [address] [address] [address] Steven Simon Rotavirus A Detected Abnormal NOT DETECTED The [facility] Comment on above: Performed By: #### G IPANEL #### [facility] [address] [place] [address] Dr. Steven Simon Salmonella Not detected Normal NOT DETECTED The [facility] Comment on above: Performed By: #### G IPANEL #### [facility] [address] [place] [address] Dr. Steven Simon Sapovirus Not detected Normal NOT DETECTED The [facility] Comment on above: Performed By: #### G IPANEL #### [facility] [address] [place] [address] Dr. Steven Simon STEC Not detected Normal NOT DETECTED The [facility] Comment on above: Performed By: #### G IPANEL #### [facility] [address] [place] [address] Dr. Steven Simon Vibrio Not detected Normal NOT DETECTED The [facility] Comment on above: Performed By: #### G IPANEL #### [facility] [address] [place] [address] Dr. Steven Simon Vibrio Cholera Not detected Normal NOT DETECTED [facility] Comment on above: Performed By: #### G IPANEL #### [facility] [address] [place] [address] Dr. Steven Simon Y. Enterocolitica Not detected Normal NOT DETECTED [facility] Comment on above: Performed By: #### G IPANEL #### [facility] [address] [place] [address] Dr. Steven Simon LACTATE/LACTIC ACIDon 2021 Lactate [Moles/Vol] 0.6 mmol/L Normal 0.4-1.9 [facility] Comment on above: Performed By: #### G IPANEL #### [facility] [address] [place] [address] Dr. Steven Simon PROF 14(COMP METB)on 022 Albumin [Mass/Vol] 3.3 g/dL Critically low 3.4-5.0 Th [facility] Comment on above: Performed By: #### E RUR #### [facility] [address] [place] [address] Dr. Steven Simon Albumin/Globulin [Mass ratio] 0.9 {ratio} Normal [facility] Comment on above: Performed By: #### E RUR #### [facility] [address] [address] [address] Steven Simon ALP [Catalytic activity/Vol] 63 U/L Normal 46-116 [facility] Comment on above: Performed By: #### E RUR #### [facility] [address] [place] [address] Dr. Steven Simon ALT [Catalytic activity/Vol] 26 U/L Normal 14-59 [facility] Comment on above: Performed By: #### E RUR #### [facility] [address] [place] [address] Dr. Steven Simon Anion gap [Moles/Vol] 12.2 mmol/L Normal Th [facility] Comment on above: Performed By: #### E RUR #### [facility] [address] [place] [address] Dr. Steven Simon AST [Catalytic activity/Vol] 18 U/L Normal 15-37 [facility] Comment on above: Performed By: #### E RUR #### [facility] [address] [place] [address] Dr. Steven Simon Bilirubin [Mass/Vol] 0.6 mg/dL Normal 0.2-1.0 [facility] Comment on above: Performed By: #### E RUR #### [facility] [address] [place] [address] Dr. Steven Simon Calcium [Mass/Vol] 7.6 mg/dL Critically low 8.5-10.1 [facility] Comment on above: Performed By: #### E RUR #### [facility] [address] [place] [address] Dr. Steven Simon Chloride [Moles/Vol] 102 mmol/L Normal 98-107 [facility] Comment on above: Performed By: #### E RUR #### [facility] [address] [address] [address] Steven Simon CO2 [Moles/Vol] 24.6 mmol/L Normal 21.0-32.0 [facility] Comment on above: Performed By: #### E RUR #### [facility] [address] [place] [address] Dr. Steven Simon Creatinine [Mass/Vol] 0.71 mg/dL Normal 0.55-1.02 [facility] Comment on above: Performed By: #### E RUR #### [facility] [address] [place] [address] Dr. Steven Simon EGFR-AF BURUNDIAN >60 Normal >=60 [facility] Comment on above: Performed By: #### E RUR #### [facility] [address] [place] [address] Dr. Steven Simon EGFR-NON AF BURUNDIAN >60 Normal >=60 [facility] Comment on above: Performed By: #### E RUR #### [facility] [address] [place] [address] Dr. Steven Simon Globulin (S) [Mass/Vol] 3.6 g/dL Normal [facility] Comment on above: Performed By: #### E RUR #### [facility] [address] [place] [address] Dr. Steven Simon Glucose [Mass/Vol] 146 mg/dL Critically high 74-106 [facility] Comment on above: Performed By: #### E RUR #### [facility] [address] [place] [address] Dr. Steven Simon Potassium [Moles/Vol] 3.8 mmol/L Normal 3.5-5.1 [facility] Comment on above: Performed By: #### E RUR #### [facility] [address] [place] [address] Dr. Steven Simon Protein [Mass/Vol] 6.9 g/dL Normal 6.4-8.2 [facility] Comment on above: Performed By: #### E RUR #### [facility] [address] [place] [address] Dr. Steven Simon Sodium [Moles/Vol] 135 mmol/L Critically low 136-145 Th e [facility] Comment on above: Performed By: #### E RUR #### [facility] [address] [address] [address] Steven Simon Urea nitrogen [Mass/Vol] 7.0 mg/dL Normal 7.0-18.0 [facility] Comment on above: Performed By: #### E RUR #### [facility] [address] [address] [address] Steven Simon Urea nitrogen/Creatinine [Mass ratio] 9.9 mg/mg Normal [facility] Comment on above: Performed By: #### E RUR #### [facility] [address] [address] [address] Steven Simon XR CHEST 2 Von [...] MADISON DOTY Date: 2021-12-29 08:02 Normal [facility] Covid-19 PCR (CVDTB)on SARS-CoV-2 (COVID-19) RNA TATIANA+probe Ql (Unsp spec) Not detected Normal NOT DETECTED The [facility] Comment on above: Result Comment: This test is not yet approved or cleared by the [place] FDA. When there are no FDA-approved or cleared tests available, and other criteria are met, FDA can make tests available under an emergency access mechanism called an Emergency Use Authorization (EUA). The EUA for this test is supported by the [place] of Health and Human Service's (HHS's) declaration [...] SARS-CoV-2. Performed By: #### C VDTB #### [facility] [address], [place] [address] Dr. Steven Simon Microalbumin (with Creat)on 11-15-2021 mALB <1.2 Low [facility] Comment on above: Result Comment: Unab le to calculate mALB/Crea ratio, mALB is <1.2 mg/dL mALB reference range not established. Performed By: #### m ALBC #### [facility] [address], [place] [id number] UCREA 86 mg/dL Normal 28-217 [facility] Comment on above: Performed By: #### m ALBC #### [facility] [address], [place] [id number] Comprehensive Metabolic Pane eulogio 11-08-2021 Albumin [Mass/Vol] 4.3 g/dL Normal 3.6-5.1 [facility] Comment on above: Performed By: #### C MP, LIPD, TSH reflex FT4 #### [facility] [address], [place] [id number] Albumin/Globulin [Mass ratio] 2.0 {ratio} Normal 1.0-2.5 [facility] Comment on above: Performed By: #### C MP, LIPD, TSH reflex FT4 #### [facility] [address], [place] [id number] ALP [Catalytic activity/Vol] 64 U/L Normal 35-119 [facility] Comment on above: Performed By: #### C MP, LIPD, TSH reflex FT4 #### [facility] [address], [place] [id number] ALT [Catalytic activity/Vol] 30 U/L Normal 6-33 [facility] Comment on above: Result Comment: 08/24 Female reference range changed. Performed By: #### C MP, LIPD, TSH reflex FT4 #### [facility] [address], [place] [id number] Anion gap [Moles/Vol] 16 mmol/L Normal 12-20 [facility] Comment on above: Result Comment: Effe ctive 09/29/2019 reference range changed. Performed By: #### C MP, LIPD, TSH reflex FT4 #### [facility] [address], [place] [id number] AST [Catalytic activity/Vol] 30 U/L Normal 9-34 [facility] Comment on above: Performed By: #### C MP, LIPD, TSH reflex FT4 #### [facility] [address], [place] [id number] Bilirubin [Mass/Vol] 0.51 mg/dL Normal 0.30-1.20 [facility] Comment on above: Performed By: #### C MP, LIPD, TSH reflex FT4 #### [facility] [address] [place], [place] [id number] BUN/CREA 14 Ratio Normal 6-22 [facility] Comment on above: Performed By: #### C MP, LIPD, TSH reflex FT4 #### [facility] [address] [place], [place] [id number] Calcium [Mass/Vol] 9.5 mg/dL Normal 8.6-10.2 [facility] Comment on above: Performed By: #### C MP, LIPD, TSH reflex FT4 #### [facility] [address] [place], [place] [id number] Chloride [Moles/Vol] 102 mmol/L Normal 98-107 [facility] Comment on above: Performed By: #### C MP, LIPD, TSH reflex FT4 #### [facility] [address] [place], [place] [id number] CO2 [Moles/Vol] 25 mmol/L Normal 20-31 [facility] Comment on above: Performed By: #### C MP, LIPD, TSH reflex FT4 #### [facility] [address] [place], [place] [id number] Creatinine [Mass/Vol] 0.8 mg/dL Normal 0.6-1.4 [facility] Clinical Manager Comment on above: Performed By: #### C MP, LIPD, TSH reflex FT4 #### [facility] [address] [place], [place] [id number] eGFRAA 98 mL/min/1.73m2 Normal >60 [facility] Comment on above: Performed By: #### C MP, LIPD, TSH reflex FT4 #### [facility] [address] [place], [place] [id number] eGFRNAA 81 mL/min/1.73m2 Normal >60 [facility] Clinical Manager Comment on above: Performed By: #### C MP, LIPD, TSH reflex FT4 #### [facility] [address] [place], [place] [id number] Globulin (S) [Mass/Vol] 2.2 g/dL Normal 1.9-3.7 [facility] Clinical Manager Comment on above: Performed By: #### C MP, LIPD, TSH reflex FT4 #### [facility] [address] [place], [place] [id number] Glucose [Mass/Vol] 128 mg/dL High 65-99 Yeison ramirez [place] [facility] Clinical Manager Comment on above: Result Comment: For FASTING Glucose --- ADA reference ranges: Normal 65-99 mg/dl Prediabetes 100-125 Diabetes >/= 126 Performed By: #### C MP, LIPD, TSH reflex FT4 #### [facility] [address] [place], [place] [id number] Potassium [Moles/Vol] 4.7 mmol/L Normal 3.5-5.5 [facility] Clinical Manager Comment on above: Performed By: #### C MP, LIPD, TSH reflex FT4 #### [facility] [address] [place], [place] [id number] Protein [Mass/Vol] 6.5 g/dL Normal 6.1-8.1 Yeison ramirez [place] [facility] Clinical Manager Comment on above: Performed By: #### C MP, LIPD, TSH reflex FT4 #### [facility] [address] [place], [place] [id number] Sodium [Moles/Vol] 139 mmol/L Normal 135-146 [facility] Comment on above: Performed By: #### C MP, LIPD, TSH reflex FT4 #### [facility] [address] [place], [place] [id number] Urea nitrogen [Mass/Vol] 10 mg/dL Normal 7-25 [facility] Comment on above: Performed By: #### C MP, LIPD, TSH reflex FT4 #### [facility] [address] [place], [place] [id number] Hemoglobin A1Con 11-08-2021 EAG 142.72 Normal [facility] Comment on above: Performed By: #### A 1C #### [facility] [address] [place], [place] [id number] HbA1c (Bld) [Mass fraction] 6.6 % High 4.0-6.0 [facility] Comment on above: Performed By: #### A 1C #### [facility] [address] [place], [place] [id number] Lipid Panelon 11-08-2021 Cholesterol [Mass/Vol] 245 mg/dL High 125-200 [facility] Comment on above: Result Comment: Low risk < 200mg/dL Borderline risk 201-239 mg/dl High risk > or equal to 240 Performed By: #### C MP, LIPD, TSH reflex FT4 #### [facility] [address] [place], [place] [id number] Cholesterol in HDL [Mass/Vol] 42 mg/dL Normal >40 [facility] Comment on above: Result Comment: High Cardiovascular Risk HDL <40 mg/dL Low Cardiovascular Risk HDL > or equal to 60 mg/dl Performed By: #### C MP, LIPD, TSH reflex FT4 #### [facility] [address] [place], [place] [id number] Cholesterol in LDL [Mass/Vol] 168 mg/dL Normal [facility] Comment on above: Result Comment: LDL ATP III CLASSIFICATION LDL less than 100 mg/dl Optimal LDL 100-129 mg/dl Near or above optimal LDL 130-159 Borderline high LDL 160-189 High LDL greater than 189 mg/dl Very High Performed By: #### C MP, LIPD, TSH reflex FT4 #### [facility] [address] [place], [place] [id number] Cholesterol in VLDL [Mass/Vol] 35 mg/dL Normal [facility] Comment on above: Performed By: #### C MP, LIPD, TSH reflex FT4 #### [facility] [address] [place], [place] [id number] Cholesterol.total/Cho lesterol in HDL [Mass ratio] 6 {ratio} Normal [facility] Comment on above: Performed By: #### C MP, LIPD, TSH reflex FT4 #### [facility] [address] [place], [place] [id number] Triglyceride [Mass/Vol] 177 mg/dL High 30-150 [facility] Comment on above: Result Comment: TRIG ATPIII CLASSIFICATIONS TRIG less than 150 mg/dl Normal TRIG 150-199 mg/dl Borderline High TRIG 200-500 mg/dl High TRIG greather than 500 mg/dl Very High Performed By: #### C MP, LIPD, TSH reflex FT4 #### [facility] [address] [place], [place] [id number] TSH w/ Reflex to Free T4on 0 - TSH 0.949 uIU/mL Normal 0.400-4.500 [facility] Specialist Comment on above: Performed By: #### C MP, LIPD, TSH reflex FT4 #### [facility] [address] [place], [place] [id number] HEPATITIS PANEL, ACUTEon HBsAg Screen Negative Normal Negative [facility] Comment on above: Performed By: #### H EPACUT #### [facility] [address] [place] [address] Dr. Steven Simon Hep A Ab, IgM Negative Normal Negative [facility] Comment on above: Performed By: #### H EPACUT #### [facility] [address] [address] [address] Steven Simon Hep B Core Ab, IgM Negative Normal Negative [facility] Comment on above: Performed By: #### H EPACUT #### [facility] [address] [address] [address] Steven Simon Hep C Virus Ab 0.1 s/co ratio Normal 0.0-0.9 [facility] Comment on above: Result Comment: Nega tive: < 0.8 Indeterminate: 0.8 - 0.9 Positive: > 0.9 . The CDC recommends that a positive HCV antibody result be followed up with a HCV Nucleic Acid Amplification test (333587). Effective December 05, 2021 Hepatitis Panel (4) will be made non-orderable. [facility] offers order code [id number] Acute Hepatitis. Performed By: #### H EPACUT #### [facility] [address] [place] [address] Dr. Steven Simon CBC AUTO DIFFon 09-26-2021 BASO # 0.1 103/ul Normal 0.0-0.1 [facility] Comment on above: Performed By: #### G IPANEL #### [facility] [address] [place] [address] Dr. Steven Simon Basophils/100 WBC (Bld) 1.0 % Normal 0.2-2.0 [facility] Comment on above: Performed By: #### G IPANEL #### [facility] [address] [place] [address] Dr. Steven Simon EO # 0.1 103/ul Normal 0.0-0.7 [facility] Comment on above: Performed By: #### G IPANEL #### [facility] [address] [place] [address] Dr. Steven Simon Eosinophils/100 WBC (Bld) 1.1 % Normal 0.9-7.0 [facility] Comment on above: Performed By: #### G IPANEL #### [facility] [address] [place] [address] Dr. Steven Simon Erythrocyte distribution width (RBC) [Ratio] 13.2 % Normal 11.0-15.0 [facility] Comment on above: Performed By: #### G IPANEL #### [facility] [address] [place] [address] Dr. Steven Simon Hematocrit (Bld) [Volume fraction] 44.8 % Normal 36.0-48.0 [facility] Comment on above: Performed By: #### G IPANEL #### [facility] [address] [place] [address] Dr. Steven Simon Hemoglobin (Bld) [Mass/Vol] 14.5 g/dL Normal 12.0-16.0 [facility] Comment on above: Performed By: #### G IPANEL #### [facility] [address] [place] [address] Dr. Steven Simon IG # 0.02 10e3/ul Normal 0.00-0.03 [facility] Comment on above: Performed By: #### G IPANEL #### [facility] [address] [place] [address] Dr. Steven Simon IG % 0.2 % Normal 0.0-0.5 [facility] Comment on above: Performed By: #### G IPANEL #### [facility] [address] [place] [address] Dr. Steven Simon LYMPH # 3.6 103/ul Normal 1.2-3.8 [facility] Comment on above: Performed By: #### G IPANEL #### [facility] [address] [place] [address] Dr. Steven Simon Lymphocytes/100 WBC (Bld) 43.3 % Normal 20.5-60.0 [facility] Comment on above: Performed By: #### G IPANEL #### [facility] [address] [place] [address] Dr. Steven Simon MANUAL DIFF REQ NO Normal [facility] Comment on above: Performed By: #### G IPANEL #### [facility] [address] [place] [address] Dr. Steven Simon MCH (RBC) [Entitic mass] 28.6 pg Normal 26.7-34.0 [facility] Comment on above: Performed By: #### G IPANEL #### [facility] [address] [place] [address] Dr. Steven Simon MCHC (RBC) [Mass/Vol] 32.4 g/dL Normal 29.9-35.2 [facility] Comment on above: Performed By: #### G IPANEL #### [facility] [address] [address] [address] Steven Simon MCV (RBC) [Entitic vol] 88.4 fL Normal 81.0-99.0 [facility] Comment on above: Performed By: #### G IPANEL #### [facility] [address] [address] [address] Steven Simon MONO # 0.6 103/ul Normal 0.3-0.8 [facility] Comment on above: Performed By: #### G IPANEL #### [facility] [address] [place] [address] Dr. Steven Simon Monocytes/100 WBC (Bld) 7.5 % Normal 1.7-12.0 [facility] Comment on above: Performed By: #### G IPANEL #### [facility] [address] [place] [address] Dr. Steven Simon NEUT # 3.9 103/ul Normal 1.4-6.5 [facility] Comment on above: Performed By: #### G IPANEL #### [facility] [address] [place] [address] Dr. Steven Simon Neutrophils/100 WBC (Bld) 46.9 % Normal 43.0-75.0 [facility] Comment on above: Performed By: #### G IPANEL #### [facility] [address] [place] [address] Dr. Steven Simon Platelet mean volume (Bld) [Entitic vol] 9.8 fL Normal 9.5-13.5 [facility] Comment on above: Performed By: #### G IPANEL #### [facility] [address] [place] [address] Dr. Steven Simon PLT 282 103/ul Normal 150-450 [facility] Comment on above: Performed By: #### G IPANEL #### [facility] [address] [place] [address] Dr. Steven Simon RBC 5.07 106/ul Normal 4.20-5.40 [facility] Comment on above: Performed By: #### G IPANEL #### [facility] [address] [address] [address] Steven Simon WBC 8.4 103/ul Normal 4.0-11.0 [facility] Comment on above: Performed By: #### G IPANEL #### [facility] [address] [place] [address] Dr. Steven Simon ELECTROLYTESon 09-26-2021 Anion gap [Moles/Vol] 14.7 mmol/L Normal [facility] Comment on above: Performed By: #### E LEC, LIVER #### [facility] [address] [place] [address] Dr. Steven Simon Chloride [Moles/Vol] 99 mmol/L Normal 98-107 [facility] Comment on above: Performed By: #### E LEC, LIVER #### [facility] [address] [place] [address] Dr. Steven Simon CO2 [Moles/Vol] 25.2 mmol/L Normal 22.0-30.0 [facility] Comment on above: Performed By: #### E LEC, LIVER #### [facility] [address] [place] [address] Dr. Steven Simon Potassium [Moles/Vol] 3.9 mmol/L Normal 3.4-5.0 [facility] Comment on above: Performed By: #### E LEC, LIVER #### [facility] [address] [place] [address] Dr. Steven Simon Sodium [Moles/Vol] 135 mmol/L Critically low 137-145 [facility] Comment on above: Performed By: #### E LEC, LIVER #### [facility] [address] [place] [address] Dr. Steven Simon LIVER PROFILEon 09-26-2021 Albumin [Mass/Vol] 3.7 g/dL Normal 3.5-5.0 [facility] Comment on above: Performed By: #### E LEC, LIVER #### [facility] [address] [place] [address] Dr. Steven Simon Albumin/Globulin [Mass ratio] 1.0 {ratio} Normal [facility] Comment on above: Performed By: #### E LEC, LIVER #### [facility] [address] [address] [address] Steven Simon ALP [Catalytic activity/Vol] 56 U/L Normal 38-126 [facility] Comment on above: Performed By: #### E LEC, LIVER #### [facility] [address] [address] [address] Steven Simon ALT [Catalytic activity/Vol] 41 U/L Normal 9-52 [facility] Comment on above: Performed By: #### E LEC, LIVER #### [facility] [address] [address] [address] Steven Simon AST [Catalytic activity/Vol] 27 U/L Normal 14-36 [facility] Comment on above: Performed By: #### E LEC, LIVER #### [facility] [address] [address] [address] Steven Simon BILI, CONJUGATED 0.1 mg/dL Normal 0.0-0.3 [facility] Comment on above: Performed By: #### E LEC, LIVER #### [facility] [address] [address] [address] Steven Simon Bilirubin [Mass/Vol] 0.5 mg/dL Normal 0.2-1.3 [facility] Comment on above: Performed By: #### E LEC, LIVER #### [facility] [address] [address] [address] Steven Simon Globulin (S) [Mass/Vol] 3.6 g/dL Normal [facility] Comment on above: Performed By: #### E LEC, LIVER #### [facility] [address] [address] [address] Steven Simon Protein [Mass/Vol] 7.3 g/dL Normal 6.1-8.2 [facility] Comment on above: Performed By: #### E LEC, LIVER #### [facility] [address] [address] [address] Steven Simon MG MAMM SCREEN 3D PATRICIA CADon 09-14-2021 MG MAMM SCREEN 3D PATRICIA CAD Patient: KEITH WASHINGTONSusanne Exam Date: 09/14/2021 : 1970 Gender:F Ordering : DR ERIK SMITH M.D. Admission #: [id number] Family : DR DESAIMaurice CARSON . Order #: [id number] CLICK HERE TO VIEW EXAM RADIOLOGY REPORT PROCEDURE: MAMMOGRAM SCREENING 3D BILATERAL CAD COMPARISON: MG MAMM SCREEN PATRICIA W CAD, 04/08/2019. INDICATIONS: Screening mammography Calculator Name NCI Breast Cancer Risk Assessment Tool 5 Year Breast Cancer Risk 0.90% Lifetime Breast Cancer Risk 7.00% Personal Breast Cancer No Personal Ovarian Cancer No Treatments None Family Cancers None LOCATION: [facility] BREAST COMPOSITION: Scattered areas fibroglandular density. FINDINGS: [...] M.D. on 09/14/2021 at 14:24 Normal [facility] Covid-19 PCR (CVDTB)on 07-26 SARS-CoV-2 (COVID-19) RNA TATIANA+probe Ql (Unsp spec) Not detected Normal NOT DETECTED [facility] Comment on above: Result Comment: When diagnostic [...] for this test is supported by the [place] of Health and Human Service's declaration that [...] used). Performed By: #### C VDTB #### [facility] [address] [place] [address] Dr. Steven Simon ER URINE PROFILEon 1 Bilirubin Ql (U) Negative Normal NEGATIVE [facility] Comment on above: Performed By: #### E RUR #### [facility] [address] [place] [address] Dr. Steven Simon Clarity (U) CLEAR Normal CLEAR [facility] Comment on above: Performed By: #### E RUR #### [facility] [address] [place] [address] Dr. Steven Simon Color (U) YELLOW Normal YELLOW [facility] Comment on above: Performed By: #### E RUR #### [facility] [address] [place] [address] Dr. Steven Simon ERUAHD A micrscopic examination will be performed if indicated. Normal [facility] Comment on above: Performed By: #### E RUR #### [facility] [address] [place] [address] Dr. Steven Simon Glucose Ql (U) 500 mg/dl Abnormal NEGATIVE The [facility] Comment on above: Performed By: #### E RUR #### [facility] [address] [place] [address] Dr. Steven Simon Hemoglobin Ql (U) Negative Normal NEGATIVE [facility] Comment on above: Performed By: #### E RUR #### [facility] [address] [place] [address] Dr. Steven Simon Ketones Ql (U) Negative Normal NEGATIVE The [facility] Comment on above: Performed By: #### E RUR #### [facility] [address] [place] [address] Dr. Steven Simon LEUKOCYTES Negative Normal NEGATIVE [facility] Comment on above: Performed By: #### E RUR #### [facility] [address] [place] [address] Dr. Steven Simon Nitrite Ql (U) Negative Normal NEGATIVE The [facility] Comment on above: Performed By: #### E RUR #### [facility] [address] [place] [address] Dr. Steven Simon pH (U) 7.5 [pH] Normal 5-9 [facility] Comment on above: Performed By: #### E RUR #### [facility] [address] [place] [address] Dr. Steven Simon SPEC GRAVITY 1.015 Normal 1.005-<=1.025 [facility] Comment on above: Performed By: #### E RUR #### [facility] [address] [place] [address] Dr. Steven Simon UA PROTEIN Negative Normal NEGATIVE/ TRACE [facility] Comment on above: Performed By: #### E RUR #### [facility] [address] [place] [address] Dr. Steven Simon UR MICRO IND NOT INDICATED Normal [facility] Comment on above: Performed By: #### E RUR #### [facility] [address] [place] [address] Dr. Steven Simon Urobilinogen Qn (U) 0.2 {Claritza'U}/dL Normal 0.2 - 1. 0 [facility] Comment on above: Performed By: #### E RUR #### [facility] [address] [place] [address] Dr. Steven Simon Vital Signs Date Time Vital Sign Value Performing Clinician Facility 01-13-2025 13:02-040 Body mass index (BMI) [Ratio] 35.15 kg/m2 [employer] Work Phone: [facility] 01-13-2025 13:02-040 Body weight 102.4 kg [employer] Work Phone: [facility] 01-13-2025 13:02-0400 Diastolic blood pressure 90 mm[Hg] [employer] Work Phone: [facility] 01-13-2025 13:02-0400 Systolic blood pressure 140 mm[Hg] Will Carson DO Work Phone: [facility] 12-18-2024 08:37-0400 Diastolic blood pressure 82 mm[Hg] Julia Hemmer PA Work Phone: [facility] 12-18-2024 08:37-0400 Systolic blood pressure 124 mm[Hg] Julia Hemmer PA Work Phone: [facility] 12-18-2024 08:13-0400 Body height 170.7 cm Julia Hemmer PA Work Phone: [facility] 12-18-2024 08:13-0400 Body mass index (BMI) [Ratio] 35.9 kg/m2 Julia Hemmer PA Work Phone: [facility] 12-18-2024 08:13-0400 Body weight 104.6 kg Julia Hemmer PA Work Phone: [facility] 12-18-2024 08:13-0400 Heart rate 78 /min Julia Hemmer PA Work Phone: [facility] 12-18-2024 08:13-0400 Respiratory rate 16 /min Julia Hemmer PA Work Phone: [facility] 12-18-2024 08:13-0400 SaO2% (BldA) [Mass fraction] 98 % Julia Hemmer PA Work Phone: [facility] 12-17-2024 09:36-0400 Body height 167.6 cm Michelle Cuenca PA Work Phone: [facility] 12-17-2024 09:36-0400 Body mass index (BMI) [Ratio] 36.96 kg/m2 Michelle Cuenca PA Work Phone: [facility] 12-17-2024 09:36-0400 Body weight 103.87 kg Michelle Cuenca PA Work Phone: [facility] 12-17-2024 09:36-0400 Diastolic blood pressure 90 mm[Hg] Michelle Cuenca PA Work Phone: [facility] 12-17-2024 09:36-0400 Heart rate 61 /min Michelle Cuenca PA Work Phone: [facility] 12-17-2024 09:36-0400 Respiratory rate 16 /min Michelle Cuenca PA Work Phone: [facility] 12-17-2024 09:36-0400 SaO2% (BldA) [Mass fraction] 98 % Michelle Cuenca PA Work Phone: [facility] 12-17-2024 09:36-0400 Systolic blood pressure 132 mm[Hg] Michelle Cuenca PA Work Phone: [facility] 11-10-2024 09:56-0500 Body mass index (BMI) [Ratio] 35.5 kg/m2 Will Alli DO Work Phone: [facility] 11-10-2024 09:56-0500 Body weight 103.42 kg Will Alli DO Work Phone: [facility] 11-10-2024 09:56-0500 Diastolic blood pressure 78 mm[Hg] Will Alli DO Work Phone: [facility] 11-10-2024 09:56-0500 Systolic blood pressure 120 mm[Hg] Will Alli DO Work Phone: [facility] 10-22-2024 09:06-0500 Body height 170.7 cm Jayne Bianchi WORK[employer] MANAGER Work Phone: [facility] 10-22-2024 09:06-0500 Body mass index (BMI) [Ratio] 35.44 kg/m2 Jayne Bianchi WORKFORCE MANAGER Work Phone: [facility] 10-22-2024 09:06-0500 Body weight 103.24 kg Jayne Bianchi WORKFORCE MANAGER Work Phone: [facility] 10-22-2024 09:06-0500 Diastolic blood pressure 72 mm[Hg] Jayne Bianchi WORKFORCE MANAGER Work Phone: [facility] 10-22-2024 09:06-0500 Heart rate 67 /min Jayne Bianchi WORKFORCE MANAGER Work Phone: [facility] 10-22-2024 09:06-0500 Respiratory rate 16 /min Jayne Arias WORKFORCE MANAGER Work Phone: [facility] 10-22-2024 09:06-0500 SaO2% (BldA) [Mass fraction] 96 % Jayne Arias WORKFORCE MANAGER Work Phone: [facility] 10-22-2024 09:06-0500 Systolic blood pressure 136 mm[Hg] Jayne Arias WORKFORCE MANAGER Work Phone: [facility] 10-15-2024 08:55-0500 Body height 170.7 cm Jayne Awendaw WORKFORCE MANAGER Work Phone: [facility] 10-15-2024 08:55-0500 Body mass index (BMI) [Ratio] 35.44 kg/m2 Jayne Awendaw WORKFORCE MANAGER Work Phone: [facility] 10-15-2024 08:55-0500 Body weight 103.24 kg Jayne Awendaw WORKFORCE MANAGER Work Phone: [facility] 10-15-2024 08:55-0500 Diastolic blood pressure 80 mm[Hg] Jayne Awendaw WORKFORCE MANAGER Work Phone: [facility] 10-15-2024 08:55-0500 Heart rate 67 /min Jayne Arias WORKFORCE MANAGER Work Phone: [facility] 10-15-2024 08:55-0500 Respiratory rate 17 /min Jayne Awendaw WORKFORCE MANAGER Work Phone: [facility] 10-15-2024 08:55-0500 SaO2% (BldA) [Mass fraction] 97 % Jayne Arias WORKFORCE MANAGER Work Phone: [facility] 10-15-2024 08:55-0500 Systolic blood pressure 124 mm[Hg] Jayne Arias WORKFORCE MANAGER Work Phone: [facility] 09-04-2024 11:43-0500 Body height 167.6 cm Julia Chen PA Work Phone: [facility] 09-04-2024 11:43-0500 Body mass index (BMI) [Ratio] 36.41 kg/m2 Julia Hemmer PA Work Phone: [facility] 09-04-2024 11:43-0500 Body weight 102.33 kg Julia Hemmer PA Work Phone: [facility] 09-04-2024 11:43-0500 Diastolic blood pressure 82 mm[Hg] Julia Hemmer PA Work Phone: [facility] 09-04-2024 11:43-0500 Heart rate 77 /min Julia Hemmer PA Work Phone: [facility] 09-04-2024 11:43-0500 Respiratory rate 16 /min Julia Hemmer PA Work Phone: [facility] 09-04-2024 11:43-0500 SaO2% (BldA) [Mass fraction] 97 % Julia Hemmer PA Work Phone: [facility] 09-04-2024 11:43-0500 Systolic blood pressure 118 mm[Hg] Julia Hemmer PA Work Phone: [facility] 08-20-2024 09:49-0500 Body height 167.6 cm Michelle Hill PA Work Phone: [facility] 08-20-2024 09:49-0500 Body mass index (BMI) [Ratio] 36.48 kg/m2 Michelle Cuenca PA Work Phone: [facility] 08-20-2024 09:49-0500 Body weight 102.51 kg Michelle Cuenca PA Work Phone: [facility] 08-20-2024 09:49-0500 Diastolic blood pressure 88 mm[Hg] Michelle Cuenca PA Work Phone: [facility] 08-20-2024 09:49-0500 Heart rate 79 /min Michelle Cuenca PA Work Phone: [facility] 08-20-2024 09:49-0500 Respiratory rate 16 /min Michelle Cuenca PA Work Phone: [facility] 08-20-2024 09:49-0500 SaO2% (BldA) [Mass fraction] 97 % Michelle Hill PA Work Phone: [facility] 08-20-2024 09:49-0500 Systolic blood pressure 142 mm[Hg] Michelle Cuenca PA Work Phone: [facility] 07-21-2024 10:16-0400 Body height 167.6 cm Michelle Cuenca PA Work Phone: [facility] 07-21-2024 10:16-0400 Body mass index (BMI) [Ratio] 37.12 kg/m2 Michelle Cuenca PA Work Phone: [facility] 07-21-2024 10:16-0400 Body weight 104.33 kg Michelle Cuenca PA Work Phone: [facility] 07-21-2024 10:16-0400 Diastolic blood pressure 76 mm[Hg] Michelle Cuenca PA Work Phone: [facility] 07-21-2024 10:16-0400 Heart rate 71 /min Michelle Cuenca PA Work Phone: [facility] 07-21-2024 10:16-0400 Respiratory rate 16 /min Michelle Cuenca PA Work Phone: [facility] 07-21-2024 10:16-0400 SaO2% (BldA) [Mass fraction] 95 % Michelle Cuenca PA Work Phone: [facility] 07-21-2024 10:16-0400 Systolic blood pressure 106 mm[Hg] Michelle Cuenca PA Work Phone: [facility] 06-03-2024 13:34-0400 Body height 167.6 cm Celio Brown MD Work Phone: [facility] 06-03-2024 13:34-0400 Body mass index (BMI) [Ratio] 37.41 kg/m2 Celio Brown MD Work Phone: [facility] 06-03-2024 13:34-0400 Body weight 105.14 kg Celio Brown MD Work Phone: [facility] 06-03-2024 13:34-0400 Diastolic blood pressure 76 mm[Hg] Celio Brown MD Work Phone: [facility] 06-03-2024 13:34-0400 Heart rate 76 /min Celio Brown MD Work Phone: [facility] 06-03-2024 13:34-0400 Systolic blood pressure 137 mm[Hg] Celio Brown MD Work Phone: [facility] 05-27-2024 14:03-0400 Body height 167.6 cm Erik Smith MD Work Phone: [facility] 05-27-2024 14:03-0400 Body mass index (BMI) [Ratio] 37.28 kg/m2 Erik Smith MD Work Phone: [facility] 05-27-2024 14:03-0400 Body weight 104.78 kg Erik Smith MD Work Phone: [facility] 05-27-2024 14:03-0400 Diastolic blood pressure 88 mm[Hg] Erik Smith MD Work Phone: [facility] 05-27-2024 14:03-0400 Heart rate 69 /min Erik Smith MD Work Phone: [facility] 05-27-2024 14:03-0400 SaO2% (BldA) [Mass fraction] 97 % Erik Smith MD Work Phone: [facility] 05-27-2024 14:03-0400 Systolic blood pressure 122 mm[Hg] Erik Smith MD Work Phone: [facility] Healthcare Encounters Encounter Date Encounter Type Care Provider Facility Start: 01-18-2025 End: 01-20-2025 Estrellita FERRARO Work Phone: [facility] Comment on above: 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 discogenic back pain; Neck pain Start: 01-13-2025 End: 01-13-2025 Bamboo flowsheet Will Carson DO Work Phone: [facility] Start: 01-13-2025 End: 01-13-2025 Bamboo flowsheet Will Doranteso DO Work Phone: [facility] Start: 01-13-2025 End: 01-13-2025 Postop follow up visit related to original px Will Carson DO Work Phone: [facility] Comment on above: Postoperative follow -up Start: 01-13-2025 End: 01-13-2025 ambulatory WILL CARSON Not Available Start: 01-02-2025 End: 01-02-2025 Refill Julia FERRARO Work Phone: [facility] Comment on above: Type 2 diabetes alberta itus with stage 2 chronic kidney disease, without long-term current use of insulin (CMS/HCC) (Primary Dx) Start: 12-26-2024 End: 12-26-2024 Clinisync Result Encounter Generic External Data Provider [facility] Unsolicited Start: 12-26-2024 End: 12-26-2024 Clinisync Result Encounter Generic External Data Provider [facility] Unsolicited Start: 12-26-2024 End: 12-26-2024 ambulatory Erik Smith MD Work Phone: [facility] Work Phone: Start: 12-26-2024 End: 12-26-2024 Departed Referred Erik Smith MD Work Phone: [facility] [place] [facility] Start: 12-18-2024 End: 12-18-2024 Office outpatient visit 25 minutes Julia FERRARO Work Phone: [facility] Comment on above: Postcoital bleeding (Primary Dx); Menopausal state; Pain in female genitalia on intercourse; Pre-operative examination; Type 2 diabetes mellitus with chronic kidney disease, without long-term current use of insulin, unspecified CKD stage (CMS/HCC); Essential hypertension (CMS/HCC); Smoker Start: 12-18-2024 End: 12-18-2024 Preprocedural examination done Julia FERRARO Work Phone: [facility] Start: 12-18-2024 End: 12-18-2024 ambulatory JULIA CHEN Not Available Start: 12-17-2024 End: 12-17-2024 Office outpatient visit 25 minutes Michelle FERRARO Work Phone: [facility] Comment on above: Encounter for drug t herapy (Primary Dx); Degeneration of intervertebral disc of lumbar region with discogenic back pain; Left arm pain; Neck pain; Vertigo Start: 12-17-2024 End: 12-17-2024 ambulatory MICHELLE CUENCA Not Available Start: 12-16-2024 Registered Recurring Erik moon MD Work Phone: [facility] Start: 12-16-2024 ambulatory Isak Castillo Facility:[facility] Start: 12-10-2024 End: 12-10-2024 ambulatory WILL ALLI Not Available Start: 12-09-2024 End: 12-11-2024 Refill Ramesh [facility] Comment on above: Chronic low back mikael n, unspecified back pain laterality, unspecified whether sciatica present Start: 11-27-2024 End: 11-27-2024 ambulatory AMARILIS ALVARENGA Not Available Start: 11-24-2024 End: 11-24-2024 Bamboo flowsheet Amarilis Alvarenga MD Work Phone: [facility] Start: 11-24-2024 End: 11-24-2024 Bamboo flowsheet Amarilis Alvarenga MD Work Phone: [facility] Start: 11-24-2024 End: 11-24-2024 Postop [...] 10-22-2024 End: 10-22-2024 Bamboo flowsheet Jayne Bianchi WORKFORCE MANAGER Work Phone: [facility] Start: 10-22-2024 End: 10-22-2024 Bamboo flowsheet Jayne Bianchi WORKFORCE MANAGER Work Phone: [facility] Start: 10-22-2024 End: 10-22-2024 Office outpatient visit 25 minutes Jayne Bianchi WORKFORCE MANAGER Work Phone: [facility] Comment on above: Mixed hyperlipidemia (CMS/HCC) (Primary Dx); Major depressive disorder, recurrent, moderate (CMS/HCC); Bronchitis Start: 10-22-2024 End: 10-22-2024 ambulatory JAYNE BIANCHI Not Available Start: 10-15-2024 End: 10-15-2024 Bamboo flowsheet Jayne Bianchi WORKFORCE MANAGER Work Phone: [facility] Start: 10-15-2024 End: 10-15-2024 Bamboo flowsheet Jayne Bianchi WORKFORCE MANAGER Work Phone: [facility] Start: 10-15-2024 End: 10-15-2024 Office outpatient visit 25 minutes Jayne Bianchi WORKFORCE MANAGER Work Phone: [facility] Comment on above: Bronchitis (Primary Dx); Morbid (severe) obesity due to excess calories (CMS/HCC); Essential (primary) hypertension (CMS/HCC); Body mass index (BMI) 36.0-36.9, adult Start: 10-15-2024 End: 10-15-2024 ambulatory JAYNE BIANCHI Not Available Start: 10-01-2024 End: 10-01-2024 Estrellita [facility] Comment on above: Chronic low back mikael n, unspecified back pain laterality, unspecified whether sciatica present Start: 09-04-2024 End: 09-04-2024 Bamboo flowsheet Julia FERRARO Work Phone: [facility] Start: 09-04-2024 End: 09-04-2024 Bamboo flowsheet Julia FERRARO Work Phone: [facility] Start: 09-04-2024 End: 09-04-2024 Patient encounter procedure Julia FERRARO Work Phone: [facility] Comment on above: Medicare annual well ness [...] unspecified laterality; Acquired hypothyroidism (CMS/HCC); Morbid obesity ([facility]); Type 2 diabetes mellitus with stage 2 chronic kidney disease, without long-term current use of insulin ([facility]); Chronic glossitis; Chronic pansinusitis; Chronic reactive otitis externa of both ears; Infected sebaceous cyst; Abnormal CBC; Abnormal gait; Anxiety and depression (CMS/HCC); Benign paroxysmal positional vertigo due to bilateral vestibular disorder; Bilateral tinnitus; Mild episode of recurrent major depressive disorder (HCC) (CMS/HCC); Generalized anxiety disorder ([facility]/HCC); History of TIA (transient ischemic attack); Chronic low back pain, unspecified back pain laterality, unspecified whether sciatica present; Meniere's disease of both ears; Menopause; Other rosacea; Pure hypercholesterolemia ([facility]); Sensorineural hearing loss, bilateral; Smoker Start: 09-04-2024 End: 09-04-2024 ambulatory JULIA CHEN Not Available Start: 08-26-2024 End: 08-26-2024 Refill Ramesh Jose MA [facility] [employer] [facility] Comment on above: Chronic low back mikael n, unspecified back pain laterality, unspecified whether sciatica present Start: 08-20-2024 End: 08-20-2024 Office outpatient visit 15 minutes Michelle FERRARO Work Phone: [facility] [place] [facility] Comment on above: 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 discogenic back pain (Primary Dx); Encounter for drug therapy; Left arm pain; Neck pain; Vertigo Start: 08-20-2024 End: 08-20-2024 ambulatory MICHELLE CUENCA Not Available Start: 08-19-2024 End: 08-19-2024 ambulatory MADISON VIEIRA Not Available Start: 08-19-2024 End: 08-19-2024 Patient encounter procedure Madison Vieira MD Work Phone: [employer] [facility] Comment on above: Left arm pain (Prima ry Dx); Carpal tunnel syndrome on both sides Start: 07-21-2024 End: 07-21-2024 Bamboo flowsheet Michelle FERRARO Work Phone: [employer] Start: 07-21-2024 End: 07-21-2024 Bamboo flowsheet Michelle Cuenca PA Work Phone: [employer] Start: 07-21-2024 End: 07-21-2024 Office outpatient visit 25 minutes Michelle FERRARO Work Phone: [facility] Comment on above: Encounter for drug t herapy (Primary Dx); Degeneration of intervertebral disc of lumbar region with discogenic back pain; Hyper reflexia; Left arm pain; Neck pain Start: 07-21-2024 End: 07-21-2024 ambulatory MICHELLE CUENCA Not Available Start: 07-08-2024 End: 07-08-2024 Refill Ramesh Jose MA [employer] [facility] Comment on above: Chronic low back mikael n, unspecified back pain laterality, unspecified whether sciatica present Start: 07-07-2024 End: 07-07-2024 ambulatory AMARILIS ALVARENGA Not Available Start: 07-07-2024 End: 07-07-2024 Bamboo flowsheet Amarilis Alvarenga MD Work Phone: [facility] Start: 07-07-2024 End: 07-07-2024 Bamboo flowsheet Amarilis Alvarenga MD Work Phone: [facility] Start: 06-04-2024 End: 06-04-2024 Telephone encounter Julia FERRARO Work Phone: [facility] Comment on above: Chronic low back mikael n, unspecified back pain laterality, unspecified whether sciatica present Start: 06-03-2024 End: 06-03-2024 ambulatory CELIO BROWN [facility] Start: 06-03-2024 End: 06-03-2024 Office consultation new/estab patient 40 min Celio Brown MD Work Phone: [facility] Comment on above: Serous cystadenoma o f pancreas (Primary Dx) Start: 06-02-2024 ambulatory [facility] Start: 05-27-2024 End: 05-27-2024 Office outpatient visit 25 minutes Erik Smith MD Work Phone: [facility] Comment on above: Neoplasm of uncertai n behavior of head of pancreas (Primary Dx); Pancreas, cyst, true (CMS/HCC) Start: 05-27-2024 End: 05-27-2024 ambulatory ERIK SMITH Not Available Start: 05-13-2024 End: 05-13-2024 Telephone encounter Julia FERRARO Work Phone: [facility] Start: 05-05-2024 End: 05-05-2024 ambulatory JULIA CHEN Not Available Start: 04-28-2024 End: 04-28-2024 ambulatory MICHELLE CUENCA Not Available Start: 10-29-2023 Chart abstracting Julia edwards PA Work Phone: [facility] Start: 05-09-2023 End: 05-10-2023 ambulatory Dax Block Facility:[facility] Start: 05-09-2023 End: 05-09-2023 Patient encounter procedure Dax Block [facility] Start: 08-11-2022 End: 08-12-[address] ERIK [...] Date Procedure Procedure Detail Performing Clinician Start: 12-26-2024 ALL CBC WITH AUTO DIFF Will Carson DO Work Phone: Start: 12-18-2024 Hemoglobin glycosyla rossana a1c Julia FERRARO Work Phone: Start: 08-20-2024 End: 08-20-2024 Needle emg ea extremty w/paraspinl area complete Michelle FERRARO Work Phone: Start: 07-07-2024 Visual field xm uni/ bi w/interpretj limited exam Amarilis Alvarenga MD Work Phone: Start: 07-07-2024 End: 07-07-2024 Oph medical xm&eval compre new pt 1/> vst [...] ventral hernia x 4 Start: 09-24-2007 Cholecystectomy Dxa Block Start: 09-24-2007 Open biopsy of liver Mi ryan Block Start: 09-24-2007 Open biopsy of pancreas Dax Block Start: 09-24-1993 History of nasal sin us surgery Dax Block Start: 09-24-1990 section Serjio Block Excision of lumbar intervertebral disc Dax Block Plan of Treatment Date Care Activity Detail Author Start: 10-23-2026 Glaucoma screening Diabetes: Retinopathy Screening [facility] Start: 07-07-2026 Glaucoma screening Diabetes: Retinopathy Screening [facility] Start: 05-11-2026 Screening for malignant neoplasm of colon [facility] Start: 11-22-2025 Screening for malignant neoplasm of cervix [facility] Start: 09-04-2025 Medicare Annual Wellness (AWV) Medicare Annual Wellness (AWV) [facility] Start: 06-03-2025 Adult BMI Screening Adult BMI Screening [facility] Start: 06-03-2025 Tobacco Screening Tobacco Screening [facility] Start: 05-25-2025 Influenza vaccination Influenza Vaccine (Season Ended) [facility] Start: 04-21-2025 End: 10-22-2025 Lipid 1996 panel - Serum or Plasma Lipid panel Lab Routine Mixed hyperlipidemia (CMS/HCC) Expected: 04/21/2025 (Approximate), Expires: 10/22/2025 [facility] Work Phone: Comment on above: Expected: 04/21/2025 (Approximate), Expi res: 10/22/2025 Start: 03-20-2025 Hemoglobin A1c measurement Diabetes: Hemoglobin A1C [facility] Start: 01-13-2025 End: 01-13-2025 Patient encounter procedure 01/13/2025 1:00 PM EDT Office Visit [facility] [address] [place] [address] Will Carson, DO [address] [place], [place] [id number] Arrived [facility] Comment on above: Arrived Start: 01-08-2025 End: 01-08-2025 Patient encounter procedure 01/08/2025 8:40 AM EDT Office Visit [facility] [address] [place] [phone] Lesa Orta PA [address] [place], [place] [id number] [facility] Start: 12-24-2024 Urine screening for protein Diabetes: Urine Protein Screening [facility] Start: 12-18-2024 End: 12-18-2024 Patient encounter procedure 12/18/2024 8:00 AM EDT Office Visit [facility] [address] [place] [address] Julia Chen PA [address] [place] [address] [facility] Start: 12-17-2024 End: 12-17-2024 Patient encounter procedure 12/17/2024 9:40 AM EDT Office Visit [facility] [address] [place] [phone] Michelle Cuenca PA [address] [place] [address] [facility] Start: 12-10-2024 End: 12-10-2024 Patient encounter procedure 12/10/2024 11:30 AM EDT Consult [facility] [address] [place] [address] Will Carson DO [address], [place] [address] [facility] Start: 12-10-2024 End: 12-10-2024 Professional / ancillary services management 12/10/2024 10:30 AM EDT Ancillary Procedure [facility] [address] [place] [address] [facility] Start: 11-24-2024 End: 11-24-2024 Patient encounter procedure 11/24/2024 9:15 AM EST Office Visit [facility] [address] [place] [address] Amarilis Alvarenga MD [address] [place] [address] Arrived [facility] Comment on above: [...] [facility] [address] [place] [address] Amarilis Alvarenga MD [address] [place] [address] [facility] Start: 10-22-2024 End: 10-22-2024 Patient encounter procedure 10/22/2024 9:00 AM EST Office Visit [facility] [address] [place] [phone] Jayne Bianchi, WORKFORCE MANAGER [address] [place] [address] Arrived [facility] Comment on above: Arrived Start: 10-15-2024 End: 10-15-2024 Patient encounter procedure 10/15/2024 9:00 AM EST Office Visit [facility] [address] [place] [address] Jayne Bianchi WORKFORCE MANAGER [address] [place] [address] Arrived [facility] Comment on above: Arrived Start: 10-02-2024 End: 10-02-2024 Patient encounter procedure 10/02/2024 2:30 PM EST Procedure Visit [facility] [address] [place] [address] Amarilis Alvarenga MD [address] [place] [address] [facility] Start: 09-04-2024 End: 09-04-2025 [...] [address] [place] [address] Julia Chen PA [address] [place] [address] Arrived [facility] Comment on above: Arrived Start: 08-28-2024 End: 08-28-2024 Patient encounter procedure 08/28/2024 2:30 PM EST Procedure Visit [facility] [address] [place] [address] Amarilis Alvarenga MD [address] [place] [address] [facility] Start: 08-20-2024 End: 08-20-2024 Patient encounter procedure 08/20/2024 10:00 AM EST Office Visit [facility] [place] [address] [facility] [place] [address] Michelle Cuenca PA [address] [place] [address] [facility] Start: 08-19-2024 End: 08-19-2024 Patient encounter procedure 08/19/2024 10:00 AM EST Procedure Visit [facility] [place] [facility] [address] [place] [address] Madison Vieira MD [address] [place] [id number] [facility] Start: 08-05-2024 Hemoglobin A1c measurement Diabetes: Hemoglobin A1C [facility] Start: 07-26-2024 Screening for malignant neoplasm of breast Mammogram [facility] Start: 07-21-2024 End: 07-21-2025 EMG 2 Extremities EMG 2 Extremities Neurology Routine Left arm pain Expected: 07/21/2024 (Approximate), Expires: 07/21/2025 [facility] Comment on above: Expected: 07/21/2024 (Approximate), Expi res: 07/21/2025 Start: 07-21-2024 End: 07-21-2025 MR Cervical spine WO contrast MR cervical spine wo contrast Imaging Routine Hyper reflexia Left arm pain Neck pain Expected: 07/21/2024 (Approximate), Expires: 07/21/2025 [facility] Work Phone: Comment on above: Expected: 07/21/2024 (Approximate), Expi res: 07/21/2025 Start: 07-21-2024 End: 07-21-2024 Patient encounter procedure [facility] [place] [facility] Comment on above: Arrived Start: 07-07-2024 End: 07-07-2024 Patient encounter procedure 07/07/2024 2:15 PM EDT Office Visit [facility] [address] [place] [phone] Amarilis Alvarenga MD [address] [place] [address] Arrived [facility] Comment on above: Arrived Start: 05-25-2024 COVID-19 Vaccine () COVID-19 Vaccine () [facility] Start: 05-25-2024 Influenza vaccination [facility] Start: 04-16-2024 Medicare Annual Wellness (AWV) Medicare Annual Wellness (AWV) [facility] Start: 03-23-2024 Influenza vaccination Influenza Vaccine (#1) [facility] Comment on above: Postponed from 05/25/2023 (Patient Refus ed) Start: 11-23-2023 Screening for malignant neoplasm of cervix Pap Smear [facility] Start: 10-31-2023 Hemoglobin A1c measurement Diabetes: Hemoglobin A1C [facility] Start: 10-30-2023 End: 10-30-2023 Patient encounter procedure 10/30/2023 10:00 AM EST Office Visit [facility] [address] [facility] [address] [place] [address] Julia Chen PA [address] [facility] [address] [place] [address] [facility] Start: 11-18-2019 Administration of varicella zoster vaccine Zoster (Shingles) Vaccine (2 of 2) [facility] Start: 1989 Screening for malignant neoplasm of cervix Pap Smear [facility] Start: 1987 DTaP,Tdap and Td Vaccines (1 - Tdap) DTaP,Tdap and Td Vaccines (1 - Tdap) [facility] Start: 1986 Adult BMI Follow Up Plan Adult BMI Follow Up Plan [facility] Start: 1980 Depression Screening Depression Screening [facility] Start: 1978 Glaucoma screening Diabetes: Retinopathy Screening [facility] Start: 1968 Screening for malignant neoplasm of colon [facility] Start: 1968 Tobacco Counseling Tobacco Counseling [facility] CHLAMYDIA TRACHOMATI S (GENITO/STI) CHLAMYDIA TRACHOMATIS (GENITO/STI) Lab Routine Bleeding after intercourse Ordered: 11/10/2024 [facility] Comment on above: Ordered: 11/10/2024 Drugs of abuse panel - Urine by Screen method Toxicology screen, urine Lab Routine Encounter for drug therapy Degeneration of intervertebral disc of lumbar region with discogenic back pain Ordered: 12/17/2024 [facility] Work Phone: Comment on above: Ordered: 12/17/2024 Neisseria gonorrhoea e DNA [Presence] in Unspecified specimen by TATIANA with probe detection Neisseria gonorrhea DNA probe, direct Lab Routine Bleeding after intercourse Ordered: 11/10/2024 [facility] Comment on above: Ordered: 11/10/2024 SURESWAB(R) ADVANCED VAGINITIS PLUS, TMA SURESWAB(R) ADVANCED VAGINITIS PLUS, TMA Pathology and Cytology Routine Bleeding after intercourse Ordered: 11/10/2024 [facility] Comment on above: Ordered: 11/10/2024 Immunizations Immunization Date Immunization Notes Care Provider [facility] 10-07-2019 pneumococcal conjuga te vaccine, 13 valent Julia FERRARO Work Phone: [facility] 09-23-2019 zoster vaccine recombinant Julia FERRARO Work Phone: [facility] 09-23-2019 zoster vaccine, unspecified formulation Celio Brown MD Work Phone: [facility] 03-09-2010 pneumococcal polysaccharide vaccine, 23 valent Julia FERRARO Work Phone: [facility] Payers Date Payer Category Payer Self-pay 2020 Medicaid [id number] 2006 Medicare [id number] 2006 Medicare [id number] 1968 Unknown [id number] 2.16.84 0.1.978619.3.579.2.593 1968 Unknown [id number] 2.16.84 0.1.617540.3.579.2.593 1968 Unknown [id number] 2.16.84 0.1.681766.3.579.2.593 1968 Unknown [id number] 2.16.84 0.1.380609.3.579.2.593 1968 Unknown [id number] 2.16.84 0.1.544959.3.579.2.593 1968 Unknown [id number] 2.16.84 0.1.911333.3.579.2.593 1968 Unknown [id number] 2.16.84 0.1.856102.3.579.2.593 1968 Unknown [id number] 2.16.84 0.1.885709.3.579.2.593 1968 Unknown [id number] 2.16.84 0.1.179463.3.579.2.593 1968 Unknown [id number] 2.16.84 0.1.457896.3.579.2.593 1968 Unknown [id number] 2.16.84 0.1.949045.3.579.2.593 1968 Unknown [id number] 2.16.8 40.1.606273.3.579.2.727 1968 Unknown [id number] 2.16.8 40.1.033015.3.579.2.1286 1968 Unknown [id number] 2.16.8 40.1.385618.3.579.2.1286 1968 Unknown [id number] 2.16.8 40.1.368975.3.579.2.1286 1968 Unknown [id number] 2.16.8 40.1.651125.3.579.2.1286 1968 Unknown [id number] 2.16.84 0.1.927024.3.579.2.1259 1968 Unknown [id number] 2.16.84 0.1.859299.3.579.2.1259 1968 Unknown [id number] 2.16.84 0.1.975850.3.579.2.125 1968 Unknown [id number] 2.16.84 0.1.804991.3.579.2.1259 1968 Unknown [id number] 2.16.84 0.1.877563.3.579.2.125 1968 Unknown [id number] 2.16.84 0.1.767176.3.579.2.125 1968 Unknown [id number] 2.16.84 0.1.479368.3.579.2.125 1968 Unknown [id number] 2.16.84 0.1.904476.3.579.2.125 1968 Unknown [id number] 2.16.84 0.1.098763.3.579.2.125 1968 Unknown [id number] 2.16.84 0.1.220820.3.579.2.1259 1968 Unknown [id number] 2.16.84 0.1.580458.3.579.2.125 1968 Unknown [id number] 2.16.84 0.1.259475.3.579.2.1259 1968 Unknown [id number] 2.16.84 0.1.224102.3.579.2.125 1968 Unknown [id number] 2.16.84 0.1.172029.3.579.2.1259 1968 Unknown [id number] 2.16.84 0.1.388218.3.579.2.125 1968 Unknown [id number] 2.16.84 0.1.807573.3.579.2.9 1968 Unknown [id number] 2.16.84 0.1.336884.3.579.2.1258 1968 Unknown [id number] 2.16.84 0.1.518466.3.579.2.1258 1968 Unknown [id number] 2.16.84 0.1.555871.3.579.2.1258 1968 Unknown [id number] 2.16.84 0.1.562890.3.579.2.1258 1968 Unknown [id number] 2.16.84 0.1.628671.3.579.2.1259 1961 Medicaid [id number] 1961 Medicare [id number] Medicare Medicare [id number] Unknown [id number] 2.16.8 40.1.164050.3.579.2.531 Unknown [id number] 2.16.8 40.1.850385.3.579.2.531 Social History Date Type Detail Facility Start: 03-16-2020 Tobacco smoking status Heavy t obacco smoker (finding) [facility] Start: 09-03-2023 End: 04-03-2024 Sex Assigned At Female [facility] Start: 04-18-2023 End: 12-18-2024 Tobacco smoking status WYIS Smokes tobacco daily [facility] History of tobacco use Cigarette Smoker [facility] Start: 04-18-2023 End: 12-18-2024 Tobacco use and exposure Smokeless tobacco non-user [facility] Start: 09-03-2023 End: 12-30-2024 Alcohol intake Ex-drinker (finding) [facility] Start: 09-03-2023 End: 04-03-2024 History of Social function [facility] Start: 04-15-2023 Tobacco Comment 5 or less cigs/day [facility] Start: 1970 Sex Assigned At Not on file [facility] Start: 04-26-2024 [facility] History of tobacco use [...] 06-03-2024 Alcoholic beverage intake Lifetime non-drinker (finding) [facility] Tobacco smoking stat [facility] Unknown if ever smoked [facility] Work Phone: Start: 12-27-2024 Sex Female (finding) [facility] Start: 1970 Sex Assigned At Female F [facility] Medical Equipment Procedure Code Equipment Code Equipment Original Text Equi pment Identifier Dates 1 each by Other route 1 (one) time each day. [id number] Clinical Notes 05-13-2024 to 01-19-2025 Telephone Encounter - Shanti Christopher MA - 01/19/2025 3:04 PM EDTTelephone Encounter - Shanti Christopher MA - 01/19/2025 3:04 PM EDTTelephone Encounter - Dionne Jain - 01/19/2025 12:02 PM EDT Note Date & Type Note Facility 01-19-2025 Telephone encounter Note Patient last filled 12/11 [facility] 01-19-2025 Miscellaneous Notes Patient last filled 12/11 Patient left vm to get a refill of Percocet. documented in this encounter [facility] 01-19-2025 Telephone encounter Note Patient left vm to get a refill of Percocet. [facility] 01-13-2025 History of Present illness Narrative Reason for Appointment: Patient ID: Keith Washington is a 54 y.o. female who presents for Post-op Visit Patient presents today for 2 Week Post Op Follow Up appointment. MEDICATIONS Current Outpatient Medications Medication Instructions atenolol (TENORMIN) 50 mg, Oral, Daily clonazePAM (KlonoPIN) 1 MG tablet 1 tablet, 3 times daily DSS 100 mg, Every 12 hours PRN escitalopram (Lexapro) 20 MG tablet 1 tablet, Daily estradiol (Estrace) 0.1 MG/GM vaginal cream PLEASE SEE ATTACHED FOR DETAILED DIRECTIONS fluticasone (Flonase) 50 MCG/ACT nasal spray 1 spray, Every 24 hours FREESTYLE LITE test strip 1 each, Daily ibuprofen 800 MG tablet PRN ipratropium-albuterol (Duo-Neb) 0.5-2.5 mg/3 mL nebulizer solution 3 mL, Every 6 hours Jardiance 10 mg, Oral, Daily Lactobacillus-Inulin (CULTURELLE DIGESTIVE DAILY PO) 1 tablet, Daily levothyroxine (Synthroid, Levoxyl) 75 MCG tablet TAKE 1 TABLET BY MOUTH ONCE EVERY MORNING ON AN EMPTY STOMACH meclizine (ANTIVERT) 25 mg, Oral, Daily PRN meloxicam (MOBIC) 15 mg, Oral, Daily Mounjaro 5 mg, Subcutaneous, Every 7 days Multiple Vitamin (multivitamin) tablet 1 tablet, Daily ondansetron (ZOFRAN) 4 mg, Oral, Every 12 hours PRN potassium chloride CR (Klor-Con M20) 20 MEQ ER tablet 20 mEq, Oral, Daily Red Yeast Rice Extract (RED YEAST RICE PO) 1 tablet, Daily tiZANidine (Zanaflex) 4 MG tablet Take 1/2 -1 tab PO QAM and 1 tab PO at bedtime Umeclidinium-Vilanterol (Anoro Ellipta) 62.5-25 MCG/ACT aerosol powder 1 puff, Inhalation, Every 24 hours Ventolin HFA 108 (90 Base) MCG/ACT inhaler 1 puff, Every 4 hours PRN ALLERGIES Allergies Allergen Reactions Morphine Unknown Nitrofurantoin Unknown Nitrofurantoin Macrocrystal Unknown Cephalexin Rash Moxifloxacin Rash PROBLEMS Active Ambulatory Problems Diagnosis Date Noted Essential hypertension ([facility]) 03/31/2023 Generalized anxiety disorder ([facility]) 03/31/2023 Chronic obstructive pulmonary disease ([facility]) 03/31/2023 Pulmonary emphysema ([facility]) 03/31/2023 Pure hypercholesterolemia ([facility]) 03/31/2023 Sensorineural hearing loss, bilateral 03/31/2023 Smoker 03/31/2023 Type 2 diabetes mellitus with diabetic chronic kidney disease ([facility]) 03/31/2023 Abnormal gait 04/15/2023 Acquired hypothyroidism ([facility]) 02/28/2008 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 Bilateral tinnitus 04/15/2023 Chronic reactive otitis externa of both ears 04/15/2023 Drug-induced adrenocortical insufficiency ([facility]) 04/15/2023 DUB (dysfunctional uterine bleeding) 04/15/2023 Irritable colon 04/07/2008 Meniere's disease 04/15/2023 Morbid obesity ([facility]) 04/15/2023 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 Other rosacea 04/15/2023 Pancreas, cyst, true ([facility]) 04/15/2023 Low back pain 02/28/2008 Chronic pansinusitis 03/21/2019 Moderate persistent asthma without complication ([facility]) 04/16/2023 History of gastritis 04/16/2023 Bilateral carpal tunnel syndrome 04/24/2023 Chronic glossitis 05/16/2023 Myalgia 07/04/2023 Depression ([facility]) 07/31/2023 GERD (gastroesophageal reflux disease) 07/31/2023 History of TIA (transient ischemic attack) 07/31/2023 Infected sebaceous cyst 07/31/2023 Abnormal CBC 12/25/2023 Menopause 12/25/2023 Cervicalgia 04/26/2024 Fibromyalgia 04/26/2024 Pain in joint, pelvic region and thigh 04/26/2024 Benign paroxysmal positional vertigo 04/26/2024 Lumbosacral radiculopathy 04/26/2024 Anxiety and depression ([facility]) 04/26/2024 Degenerative disc disease, lumbar 04/26/2024 Degenerative disc disease, cervical 04/26/2024 Disturbance of skin sensation 04/26/2024 Median neuropathy 04/26/2024 Post concussion syndrome 04/26/2024 Serous cystadenoma of pancreas 06/03/2024 Bleeding after intercourse 11/10/2024 Resolved Ambulatory Problems Diagnosis Date Noted Stage 3a chronic kidney disease (HCC) ([facility]) 03/31/2023 Acute gastritis 02/28/2008 Anxiety state ([facility]) 02/28/2008 Asthma with exacerbation ([facility]) 02/28/2008 Benign neoplasm of skin 09/27/2009 Abdominal muscle pain 02/28/2008 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 Pansinusitis 04/15/2023 Swelling of vagina 04/15/2023 Abnormal vaginal bleeding 07/26/2016 Antidepressants causing adverse effect in therapeutic use 11/22/2015 Diabetic renal disease ([facility]) 10/18/2017 Dizziness 11/22/2015 Moderate episode of recurrent major depressive disorder ([facility]) 11/22/2015 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 Myopathy 07/26/2023 BMI 45.0-49.9, adult ([facility]) 07/31/2023 Transient alteration of awareness 04/26/2024 Vertigo 04/26/2024 Back pain 04/26/2024 Brachial neuritis or radiculitis 04/26/2024 Carpal tunnel syndrome 04/26/2024 Backache 04/26/2024 Past Medical History: Diagnosis Date Alteration of awareness Anxiety Asthma Chest pain Confusion 04/01/2015 COPD (chronic obstructive pulmonary disease) ([facility]) Diabetes mellitus ([facility]) Diarrhea Disease of thyroid gland ([facility]) Dyspnea Gallbladder disease Genital herpes History of psychiatric hospitalization Liver disease Liver lesion Pancreas cyst ([facility]) Rotavirus infection Syncope Tooth abscess Transient ischemic attack (TIA) Vomiting HISTORY PAST MEDICAL HISTORY SOCIAL HISTORY Past Medical History: Diagnosis Date Alteration of awareness Antidepressants causing adverse effect in therapeutic use 11/22/2015 Anxiety Asthma 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 Carpal tunnel syndrome Chest pain Confusion 04/01/2015 and weakness COPD (chronic obstructive pulmonary disease) ([facility]) Degenerative disc disease, cervical Degenerative disc disease, [...] Vomiting Social History Tobacco Use Smoking status: Every Day Current packs/day: 1.00 Types: Cigarettes Smokeless tobacco: Never Tobacco comments: [...] CATHETERIZATION SECTION, LOW TRANSVERSE 1991 CHOLECYSTECTOMY 2008 DILATION AND CURETTAGE OF UTERUS 12/26/2024 Endometrium [place] EKG 2012 syncope EYE SURGERY LIVER BIOPSY 2007 OTHER SURGICAL HISTORY 2007 YVF, Normal K+ OTHER SURGICAL HISTORY 1993 r/o sinus polpys WRIST SURGERY 06/06/2023 R CTR- MTP REVIEW OF SYSTEMS Review of Systems: Review of Systems Constitutional: Negative. HENT: Negative. Eyes: Negative. Respiratory: Negative. Cardiovascular: Negative. Gastrointestinal: Negative. Genitourinary: Negative. Musculoskeletal: Negative. Skin: Negative. Neurological: Negative. All other systems reviewed and are negative. Hematological: Negative. Endocrine: Negative. Allergic/Immunologic: Negative. OBJECTIVE Objective: Physical Exam Constitutional: Appearance: Normal appearance. She is well-developed. Cardiovascular: Rate and Rhythm: Normal rate and [...] nursing note reviewed. Exam conducted with a service department manager present. Vitals: Estimated body mass index is 35.15 kg/m as calculated from the following: Height as of 12/18/24: 5' 7.2 . Weight as of this encounter: 225 lb 12 oz. BP: 140/90 No LMP recorded. Patient is premenopausal. ASSESSMENT & PLAN ICD-10-CM 1. Postoperative follow-up Z09 Post Op Follow Up: Patient presents today for a postop follow up after having a D&C Hysteroscopy performed at [facility] with Dr. Carson. Pathology results was reviewed with the patient in great detail and all restrictions have been lifted. Pt has dyspareunia- advised to use coconut oil. Pt to return for annual exam Follow Up: Patient is to return to the office for annual exam unless needed otherwise. Documented by Julia Tang LPN on behalf of: Will Carson DO documented in this encounter [facility] 01-02-2025 Telephone encounter Note Refill sent. [facility] 01-02-2025 Miscellaneous Notes Refill sent. documented in this encounter [facility] 12-18-2024 History of Present illness Narrative Images from the original note were not included. Subjective Patient ID: Keith Washington is a 54 y.o. female who presents for surgical clearance. Keith is present today for surgical clearance. She is scheduled for a D&C hysteroscopy possible Myosure on 12/26/[address] Carson. She completed her PAT and results in computer. States was told she will be under general anesthesia. States the effects of anesthesia seem to linger for her, makes her feel a little more foggy. Her mom and sister are the same way. Otherwise no problems with anesthesia. States the Mounjaro makes her feel like she has the Flu for a few days. Zofran doesn't help. Takes the Mounjaro about every 3 weeks. Current Outpatient Medications on File Prior to Visit Medication Sig Dispense Refill estradiol (Estrace) 0.1 MG/GM vaginal cream PLEASE SEE ATTACHED FOR DETAILED DIRECTIONS atenolol (Tenormin) 50 MG tablet TAKE 1 TABLET BY MOUTH EVERY DAY 100 tablet 3 clonazePAM (KlonoPIN) 1 MG tablet Take 1 tablet by mouth in the morning and 1 tablet in the evening and 1 tablet before bedtime. Docusate Sodium (DSS) 100 MG capsule Take 100 mg by mouth every 12 (twelve) hours if needed. escitalopram (Lexapro) 20 MG tablet Take 1 [...] by nebulization every 6 (six) hours. PRN Jardiance 10 MG TAKE 1 TABLET BY MOUTH [...] (Mobic) 15 MG tablet Take 1 tablet (15 mg) by mouth Daily 30 tablet 2 Multiple Vitamin (multivitamin) tablet Take 1 tablet by mouth Daily ondansetron (Zofran) 4 MG tablet Take 1 tablet (4 mg) by mouth every 12 (twelve) hours if needed for nausea 20 tablet 2 oxyCODONE-acetaminophen (Percocet) 5-325 MG tablet Take 1 tablet by mouth every 12 (twelve) hours PRN due now 60 tablet 0 potassium chloride CR (Klor-Con M20) 20 MEQ ER tablet TAKE 1 TABLET BY MOUTH EVERY DAY 90 tablet 4 Red Yeast Rice Extract (RED YEAST RICE PO) Take 1 tablet by mouth Daily Tirzepatide 5 MG/0.5ML solution pen-injector Inject 5 mg under the skin 1 (one) time per week 2 mL 2 tiZANidine (Zanaflex) 4 MG tablet Take 1/2 -1 tab PO QAM and 1 tab PO at bedtime 60 tablet 2 Umeclidinium-Vilanterol (Anoro Ellipta) 62.5-25 MCG/ACT aerosol powder Inhale 1 puff 1 (one) time each day at the same time 1 each 5 Ventolin HFA 108 (90 Base) MCG/ACT inhaler Inhale 1 puff every 4 (four) hours if needed for wheezing or shortness of breath. [DISCONTINUED] meloxicam (Mobic) 15 MG tablet Take 1 tablet by mouth 1 (one) time each day at the same time PRN [DISCONTINUED] omeprazole (PriLOSEC) [address] capsule Take 1 capsule (20 mg) by mouth in the morning. Take before meals. 100 capsule 3 [DISCONTINUED] tiZANidine (Zanaflex) 4 MG tablet Take 1 tablet by mouth every 8 (eight) hours if needed for muscle spasms. No current facility-administered medications on file prior to visit. I have reviewed and reconciled the history and medication list with the patient today. Allergies Allergen Reactions Morphine Unknown Nitrofurantoin Unknown Nitrofurantoin Macrocrystal Unknown Cephalexin Rash Moxifloxacin Rash Social History Tobacco Use Smoking status: Every Day Current packs/day: 1.00 Types: Cigarettes Smokeless tobacco: Never Tobacco comments: [...] SURGERY LIVER BIOPSY 2007 OTHER SURGICAL HISTORY 2007 YVF, Normal K+ OTHER SURGICAL HISTORY 1993 r/o sinus polpys WRIST SURGERY 06/06/2023 R CTR- MTP Visit Vitals BP 124/82 (BP Location: Left arm) Pulse 78 Resp 16 Ht 5' 7.2 Wt 230 lb 9.6 oz SpO2 98% BMI 35.90 kg/m OB Status Premenopausal Smoking Status Every Day BSA 2.23 m Review of Systems Constitutional: Positive for fatigue and unexpected weight change (Gain). Negative for chills and fever. HENT: Negative for congestion, ear pain, rhinorrhea and sore throat. Eyes: Negative for pain, discharge and visual disturbance. Respiratory: Negative for cough, shortness of breath and wheezing. Cardiovascular: Positive for palpitations. Negative for chest pain and leg swelling. Gastrointestinal: Negative for abdominal pain, constipation, diarrhea, nausea and vomiting. Genitourinary: Positive for vaginal bleeding. Negative for difficulty urinating, dysuria and frequency. Musculoskeletal: Negative for arthralgias and back pain. Skin: Negative for rash. Neurological: Negative for dizziness and numbness. Psychiatric/Behavioral: Negative for sleep disturbance. The patient is [...] normal. No respiratory distress. Breath sounds: Wheezing present. No rhonchi or rales. Abdominal: General: Bowel sounds are normal. [...] Content: Thought content normal. Judgment: Judgment normal. Office Visit on 12/18/2024 Component Date Value Ref Range Status Hemoglobin A1C 12/18/2024 5.6 Final Clinisync Result Encounter on 12/16/2024 Component Date Value Ref Range Status SODIUM 12/16/2024 140 136 - 145 mmol/L Final POTASSIUM 12/16/2024 4.2 3.5 - 5.1 mmol/L Final CHLORIDE 12/16/2024 105 98 - 107 mmol/L Final CARBON DIOXIDE 12/16/2024 28.7 21.0 - 32.0 mmol/L Final ANION GAP 12/16/2024 10.5 Final GLUCOSE 12/16/2024 109 (H) 74 - 106 mg/dL Final BLOOD UREA NITROGEN 12/16/2024 14.0 7.0 - 18.0 mg/dL Final CREATININE 12/16/2024 0.91 0.55 - 1.02 mg/dL Final [facility] EGFR-AF BURUNDIAN 12/16/2024 >60 >=60 mL/min/1.73m 2 Final [facility] EGFR-NON AF BURUNDIAN 12/16/2024 >60 >=60 mL/min/1.73m 2 Final BUN CREATININE RATIO 12/16/2024 15.4 Final CALCIUM 12/16/2024 8.9 8.5 - 10.1 mg/dL Final BILIRUBIN TOTAL 12/16/2024 0.5 0.2 - 1.0 mg/dL Final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 mounjaro to the 5mg as her sugars are still increase, ok to fill for pt [facility] 06-03-2024 History of Present illness Narrative Hepatobiliary and Pancreas Surgery Consultation Treatment Team PCP: No primary care provider on file. Medical Oncologist: n/a Radiation Oncologist: n/a Wildlife Removal Specialist: Dr. Zuniga Chief Complaint: Pancreatic cyst HPI: [...] MRI every 2 years since biopsy in 2015. Most recent MRI in April 2024 demonstrated [...] Anxiety Asthma COPD (chronic obstructive pulmonary disease) ([facility]) Diarrhea DM (diabetes mellitus) ([facility]) Liver lesion TIA (transient ischemic attack) Past [...] Resource Strain: Low Risk (04/03/2024) Received from [facility] Overall Financial Resource Strain (CARDIA) Difficulty of Paying Living Expenses: Not very hard Food Insecurity: No Food Insecurity (06/03/2024) Hunger Screening Food Insecurity - Worry: Never True Food Insecurity - Inability: Never True Transportation Needs: No Transportation Needs (04/03/2024) Received from [facility] PRAPARE - Transportation Lack of Transportation (Medical): No Lack of Transportation (Non-Medical): No Physical Activity: Not on file Stress: No Stress Concern Present (04/03/2024) Received from [facility] [employer] [place] [employer] - Occupational Stress Questionnaire [...] patient becomes symptomatic. [facility] History of Present illness Narrative Associated Problem(s): Pancreas, cyst, true (CMS/HCC) Patient has seen Dr. Shah and biopsy apparently was done at one time. The CT references this has been stable over the past 12 years, since 2011. Has also seen Dr. Madison. Dr. Reyes in [place] was sent a referral. Also saw a specialist in [place] that did biopsy. She will ow see [...] SAY ON REFERRAL URGENT phone # is [phone] Pt states they need paperwork from 2007 [...] History: Procedure Laterality Date BACK SURGERY 2003 BIOPSY / EXCISION / DRAINAGE PANCREATIC CYST [...] also seen Dr. Madison. Dr. Reyes in [place] was sent a referral. Also saw a specialist in [place] that did biopsy. She will ow see Dr. Brown who can do biopsy at the same time EUS No follow-ups on file. documented in this encounter [facility] 05-13-2024 Telephone encounter Note Her MRI showed the pancreatic lesion was stable in size. However, based on the radiodensity of the lesion, the nature of the lesion is indeterminate. Called and left a detailed message, asking her to call back and let us know if she would like referral to General Surgery for a consult. [facility] 05-13-2024 Miscellaneous Notes Her MRI showed the pancreatic lesion was stable in size. However, based on the radiodensity of the lesion, the nature of the lesion is indeterminate. Called and left a detailed message, asking her to call back and let us know if she would like referral to General Surgery for a consult. 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 Pancreas, cyst, true (CMS/HCC) Cyst and pseudocyst of pancreas Mechanical ptosis of left eyelid- Primary [facility] [...] liver and biliary passages Drug-induced adrenocortical insufficiency (CMS/HCC) Gastroesophageal reflux disease without esophagitis Esophageal reflux [...] region and thigh, unspecified laterality Acquired hypothyroidism (CMS/HCC) Unspecified hypothyroidism Morbid obesity (CMS/HCC) Morbid obesity Type 2 diabetes mellitus with stage 2 chronic kidney disease, without long-term current use of insulin (CMS/HCC) Chronic glossitis Chronic pansinusitis Other chronic sinusitis Chronic reactive otitis externa of both ears Infected sebaceous cyst Sebaceous cyst Abnormal CBC Other abnormal blood chemistry Abnormal gait Abnormality of gait Anxiety and depression (CMS/HCC) Benign paroxysmal positional vertigo due to bilateral vestibular disorder Bilateral tinnitus Mild episode of recurrent major depressive disorder (HCC) (CMS/HCC) Generalized anxiety disorder (CMS/HCC) Generalized anxiety disorder History of TIA (transient [...] pseudocyst of pancreas [facility] Diagnosis Type 2 diabetes mellitus with stage 2 chronic kidney disease, without long-term current use of insulin (CMS/HCC) [facility] Diagnosis Chronic low back pain, [...] (BMI) 36.0-36.9, adult documented in this encounter [facility]* Diagnosis 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 Pancreas, cyst, true (CMS/HCC) Cyst and pseudocyst of pancreas Mixed hyperlipidemia (CMS/HCC)- Primary Mixed hyperlipidemia Major depressive disorder, recurrent, moderate (CMS/HCC) Major depressive disorder, recurrent episode, moderate Bronchitis Bronchitis, not specified as acute or chronic documented in this encounter [facility]* Diagnosis 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 Pancreas, cyst, true (CMS/HCC) Cyst and pseudocyst of pancreas Mechanical ptosis of left eyelid- Primary documented in this encounter [facility]* Diagnosis 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 Pancreas, cyst, true (CMS/HCC) Cyst and pseudocyst of pancreas Postoperative care for cataract- Primary Follow-up examination, following other surgery documented in this encounter [facility]* Diagnosis 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 Pancreas, cyst, true (CMS/HCC) Cyst and pseudocyst of pancreas Chronic low back pain, unspecified back pain laterality, unspecified whether sciatica present documented in this encounter [facility]* Diagnosis Serous cystadenoma of pancreas- Primary [facility] 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 Pancreas, cyst, true (CMS/HCC) Cyst and pseudocyst of pancreas Bleeding after intercourse Postcoital bleeding Menopausal state Symptomatic menopausal or female climacteric states [facility]* Diagnosis 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 Pancreas, cyst, true (CMS/HCC) Cyst and pseudocyst of pancreas Postoperative care for cataract- Primary Follow-up examination, following other surgery documented in this encounter [facility]* Diagnosis 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 Pancreas, cyst, true (CMS/HCC) Cyst and pseudocyst of pancreas Chronic low back pain, unspecified back pain laterality, unspecified whether sciatica present documented in this encounter [facility]* Diagnosis 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 Pancreas, cyst, true (CMS/HCC) Cyst and pseudocyst of pancreas Encounter for drug therapy- Primary Degeneration of intervertebral disc of lumbar region with discogenic back pain Left arm pain Pain in soft tissues of limb Neck pain Cervicalgia Vertigo Dizziness and giddiness documented in this encounter [facility]* Diagnosis 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 Pancreas, cyst, true (CMS/HCC) Cyst and pseudocyst of pancreas Postcoital bleeding- Primary Menopausal state Symptomatic menopausal or female climacteric states Pain in female genitalia on intercourse Dyspareunia Pre-operative examination Unspecified pre-operative examination Type 2 diabetes mellitus with chronic kidney disease, without long-term current use of insulin, unspecified CKD stage (CMS/HCC) Essential hypertension (CMS/HCC) Unspecified essential hypertension Smoker Tobacco use disorder documented in this encounter [facility] noteNo assessment information [facility] Phone: Evaluation note* Diagnosis 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 Pancreas, cyst, true (CMS/HCC) Cyst and pseudocyst of pancreas Type 2 diabetes mellitus with stage 2 chronic kidney disease, without long-term current use of insulin (CMS/HCC)- Primary documented in this encounter [facility]* Diagnosis 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 Pancreas, cyst, true (CMS/HCC) Cyst and pseudocyst of pancreas Postoperative follow-up Follow-up examination, following unspecified surgery documented in this encounter [facility]* Diagnosis 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 Pancreas, cyst, true (CMS/HCC) Cyst and pseudocyst of pancreas Degeneration of intervertebral disc of lumbar region with discogenic back pain Neck pain Cervicalgia documented in this encounter [facility] Discharge instructions No data available for this section [facility] filedocumented in this encounter [facility] No data available for this section [facility] N[facility]ative* Consultation (Routine) - Pending Review Specialty Diagnoses / Procedures Referred By Vazquez brown Referred To Contact General Surgery Diagnoses 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 dical Specialist DATE CREATED AUTHOR AUTHOR'S ORGANIZ ATION 08/16/2022 [facility] DATE CREATED AUTHOR AUTHOR'S ORGANIZ ATION 06/06/2023 [facility] DATE CREATED AUTHOR AUTHOR'S ORGANIZ ATION 06/04/2024 [facility] DATE CREATED AUTHOR AUTHOR'S ORGANIZ ATION 06/05/2024 [facility] DATE CREATED AUTHOR AUTHOR'S ORGANIZ ATION 10/17/2024 [facility] DATE CREATED AUTHOR AUTHOR'S ORGANIZ ATION 12/30/2024 [facility] DATE CREATED AUTHOR AUTHOR'S ORGANIZ ATION 01/14/[address] [facility] dical Specialists EPIC Patient Care team informatio n (unrecognized section and content) Customer Accounts Advisor Relationship Specialty Start Date End Date Erik Smith MD [address] [facility] [address] [place] [address] PCP - General Family Medicine 04/16/23 Erik Smith MD [address] [place] [address] PCP - ACO Reach 09/23/23 Customer Accounts Advisor Relationship Specialty Start Date End Date Erik Smith MD [address] [place] [address] PCP - General Family Medicine 04/16/23 Erik Smith MD [address] [place] [address] PCP - ACO Reach 09/23/23Sunday, Vidya, PER DIEM PHYSICAL THERAPIST ASSISTANT [address] [place] [address] Licensed Practical Nurse Family Medicine 03/26/24 Customer Accounts Advisor Relationship Specialty Start Date End Date Erik Smith MD [address] [place] [address] PCP - General Family Medicine 04/16/23 Erik Smith MD [address] [place] [address] PCP - ACO Reach 09/23/23Sunday, Vidya, PER DIEM PHYSICAL THERAPIST ASSISTANT [address] [place] [address] Licensed Practical Nurse Family Medicine 03/26/24 Customer Accounts Advisor Relationship Specialty Start Date End Date Erik Smith MD [address] [place] [address] PCP - General Family Medicine 04/16/23 Erik Smith MD [address] [place] [address] PCP - ACO Reach 09/23/23Sunday, Vidya, PER DIEM PHYSICAL THERAPIST ASSISTANT [address] [place] [address] Licensed Practical Nurse Family Medicine 03/26/24 Customer Accounts Advisor Relationship Specialty Start Date End Date Erik Smith MD [address] [place] [address] PCP - General Family Medicine 04/16/23 Erik Smith MD [address] [place] [address] PCP - ACO Reach 09/23/23Sunday, Vidya, PER DIEM PHYSICAL THERAPIST ASSISTANT [address] [place] [address] Licensed Practical Nurse Family Medicine 03/26/24 Customer Accounts Advisor Relationship Specialty Start Date End Date Erik Smith MD [address] [place] [address] PCP - General Family Medicine 04/16/23 Erik Smith MD [address] [place] [address] PCP - ACO Reach 09/23/23Sunday, Vidya, PER DIEM PHYSICAL THERAPIST ASSISTANT [address] [place] [address] Licensed Practical Nurse Family Medicine 03/26/24 Customer Accounts Advisor Relationship Specialty Start Date End Date Erik Smith MD [address] [place] [address] PCP - General Family Medicine 04/16/23 Erik Smith MD [address] [place] [address] PCP - ACO Reach 09/23/23Sunday, Vidya, PER DIEM PHYSICAL THERAPIST ASSISTANT [address] [place] [address] Licensed Practical Nurse Family Medicine 03/26/24 Customer Accounts Advisor Relationship Specialty Start Date End Date Erik Smith MD [address] [place] [address] PCP - General Family Medicine 04/16/23 Erik Smith MD [address] [place] [address] PCP - ACO Reach 09/23/23Sunday, Vidya PER DIEM PHYSICAL THERAPIST ASSISTANT [address] [place] [address] Licensed Practical Nurse Family Medicine 03/26/24 Customer Accounts Advisor Relationship Specialty Start Date End Date Erik Smith MD [address] [place] [address] PCP - General Family Medicine 04/16/23 Erik Smith MD [address] [place] [address] PCP - ACO Reach 09/23/23Sunday, Vidya PER DIEM PHYSICAL THERAPIST ASSISTANT [address] [place] [address] Licensed Practical Nurse Family Medicine 03/26/24 Customer Accounts Advisor Relationship Specialty Start Date End Date Erik Smith MD [address] [place] [address] PCP - General Family Medicine 04/16/23 Erik Smith MD [address] [place] [address] PCP - ACO Reach 09/23/23Sunday, PATY DasilvaN [address] [place] [address] Licensed Practical Nurse Family Medicine 03/26/24 Customer Accounts Advisor Relationship Specialty Start Date End Date Erik Smith MD [address] [place] [address] PCP - General Family Medicine 04/16/23 Erik Smith MD [address] [place] [address] PCP - ACO Reach 09/23/23Sunday, PATY DasilvaN [address] [place] [address] Licensed Practical Nurse Family Medicine 03/26/24 Customer Accounts Advisor Relationship Specialty Start Date End Date Erik Smith MD [address] [place] [address] PCP - General Family Medicine 04/16/23 Erik Smith MD [address] [place] [address] PCP - ACO Reach 09/23/23Sunday, PATY DasilvaN [address] [place] [address] Licensed Practical Nurse Family Medicine 03/26/24 Customer Accounts Advisor Relationship Specialty Start Date End Date Erik Smith MD [address] [place] [address] PCP - General Family Medicine 04/16/23 Erik Smith MD [address] [place] [address] PCP - ACO Reach 09/23/23 Coco Paula, RN Licensed Practical Nurse Family Medicine 10/31/24 Customer Accounts Advisor Relationship Specialty Start Date End Date Erik Smith MD [address] [place] [address] PCP - General Family Medicine 04/16/23 Erik Smith MD [address] [place] [address] PCP - ACO Reach 09/23/23 Coco Paula, RN Licensed Practical Nurse Family Medicine 10/31/24 Customer Accounts Advisor Relationship Specialty Start Date End Date Erik Smith MD [address] [place] [address] PCP - General Family Medicine 04/16/23 Erik Smith MD [address] [place] [address] PCP - ACO Reach 09/23/23 Coco Paula, ASHLEY Licensed Practical Nurse Family Medicine 10/31/24 Customer Accounts Advisor Relationship Specialty Start Date End Date Erik Smith MD [address] [place] [address] PCP - General Family Medicine 04/16/23 Erik Smith MD [address] [place] [address] PCP - ACO Reach 09/23/23 Coco Paula, RN Licensed Practical Nurse Family Medicine 10/31/24 Customer Accounts Advisor Relationship Specialty Start Date End Date Erik Smith MD [address] [place] [address] PCP - General Family Medicine 04/16/23 Erik Smith MD [address] [place] [address] PCP - ACO Reach 09/23/23 Coco Paula, RN Licensed Practical Nurse Family Medicine 10/31/24 Customer Accounts Advisor Relationship Specialty Start Date End Date Erik Smith MD [address] [place] [address] PCP - General Family Medicine 04/16/23 Erik Smith MD [address] [place] [address] PCP - ACO Reach 09/23/23 Coco Paula, ASHLEY Licensed Practical Nurse Family Medicine 10/31/24 Customer Accounts Advisor Relationship Specialty Start Date End Date Erik Smith MD [address] [place] [address] PCP - General Family Medicine 04/16/23 Erik Smith MD [address] [place] [address] PCP - ACO Reach 09/23/23 Coco Paula, ASHLEY Licensed Practical Nurse Family Medicine 10/31/24 Customer Accounts Advisor Relationship Specialty Start Date End Date Erik Smith MD [address] [place] [address] PCP - General Family Medicine 04/16/23 Erik Smith MD [address] [place] [address] PCP - ACO Reach 09/23/23 Coco Paula, RN Licensed Practical Nurse Family Medicine 10/31/2411/22 [facility] 12[facility]24 Customer Accounts Advisor Relationship Specialty Start Date End Date Erik Smith MD [address] [place] [address] PCP - General Family Medicine 04/16/23 Erik Smith MD [address] [facility] [address] [place] [address] PCP - ACO Reach 09/23/23 [facility] 12/10/24 Michelle Cuenca PA [address] [place] [address] Physician Diesel Maintenance Technician Neurology 12/17/24 Customer Accounts Advisor Relationship Specialty Start Date End Date Erik Smith MD [address] [facility] [address] [place] [address] PCP - General Family Medicine 04/16/23 Erik Smith MD [address] [facility] [address] [place] [address] PCP - ACO Reach 09/23/23 [facility] [place] 12/10/24 Michelle Cuenca PA [address] [place] [address] Physician Diesel Maintenance Technician Neurology 12/17/24 Customer Accounts Advisor Relationship Specialty Start Date End Date Erik Smith MD [address] [facility] [address] [place] [address] PCP - General Family Medicine 04/16/23 Erik Smith MD [address] [facility] [address] [place] [address] PCP - ACO Reach 09/23/23 Lulú Pringle, [facility] 12/10/24 Michelle Cuenca PA [address] [place] [address] Physician Diesel Maintenance Technician Neurology 12/17/24 Team Status: Active Member Role Status Dates Erik Smith MD Primary Care Provider Active Team Status: Active Member Role Status Dates Erik Smith MD Primary Care Provider Active S tart: December 16, 2024 Isak Castillo MD Attending Provider Active Start: December 16, 2024 Team Status: Inactive Member Role Status Dates Erik Smith MD Primary Care Provider Active S tart: December 26, 2024 End: December 26, 2024 Will Carson DO Attending Provider Active Start : December 26, 2024 End: December 26, 2024 Customer Accounts Advisor Relationship Specialty Start Date End Date Erik Smith MD [address] [facility] [address] [place] [address] PCP - General Family Medicine 04/16/23 Erik Smith MD [address] [facility] [address] [place] [address] PCP - ACO Reach 09/23/23 Lulú Pringle, [facility] 12/10/24 Michelle Cuenca PA [address] [place], [place] [address] Physician Diesel Maintenance Technician Neurology 12/17/24 Customer Accounts Advisor Relationship Specialty Start Date End Date Erik Smith MD [address] [facility] [address] [place] [address] PCP - General Family Medicine 04/16/23 Erik Smith MD [address] [facility] [address] [place] [address] PCP - ACO Reach 09/23/23 Lulú Pringle, [facility] 12/10/24 Michelle Cuenca PA [address] [place] [address] Physician Diesel Maintenance Technician Neurology 12/17/24 Customer Accounts Advisor Relationship Specialty Start Date End Date Erik Smith MD [address] [facility] [address] [place] [address] PCP - General Family Medicine 04/16/23 Erik Smith MD [address] [facility] [address] [place] [address] PCP - ACO Reach 09/23/23 Lulú Pringle, [facility] 12/10/24 Michelle Cuenca PA [address] [place], [place] [id number] Physician Diesel Maintenance Technician Neurology 12/17/24 Reason for Visit (unrecogniz ed section and [...] bleeding with intercourse Reason Comments Eyelid Problem Reason Comments Med Refill Reason Comments Post-op Visit Reason Comments Med Change Request Goals (unrecognized section and content) Goals may be documented in a n alternate section FOR RECORDS PERTAINING TO PATIENTS WHO ARE [...] BE BASED ON THE PRIMARY CLINICAL RECORDS. [facility] [employer], [facility]. provides no warranty or guarantee of the accuracy or completeness of information in this document.
--- NOTE | 2025-03-01 11:57 | ED.GENADUL1 ---
HPI HPI - General Adult General Chief complaint: Urogenital-Female Stated complaint: UTI SYMPTOMS Time Seen by Provider: 03/01/25 11:47 Source: patient Mode of arrival: walk-in History of Present Illness HPI narrative: 54-year-old female presents for pain and frequency of urination. She has had the symptoms for the last day. No back pain or fever. She also has some concern about an STD. No fever or vomiting. No vaginal discharge. Related Data Home Medications ?Medication ?Instructions ?Recorded ?Confirmed atenolol 50 mg tablet 25 mg PO DAILY 03/24/24 12/26/24 empagliflozin 10 mg tablet 10 mg PO DAILY 03/24/24 03/01/25 (Jardiance) escitalopram oxalate 20 mg tablet 20 mg PO .qhs 03/24/24 03/01/25 levothyroxine 75 mcg tablet 75 mcg PO QAM 03/24/24 03/01/25 omeprazole 20 mg capsule,delayed 20 mg PO QAM PRN reflux 03/24/24 12/26/24 release oxycodone-acetaminophen 5 mg-325 1 tab PO Q12H PRN pain 03/24/24 03/01/25 mg tablet potassium chloride 20 mEq 20 meq PO DAILY 03/24/24 03/01/25 tablet,extended release(part/cryst) (Klor-Con M) albuterol sulfate 90 mcg/actuation 2 inh inhalation Q8H PRN shortness 12/16/24 12/26/24 aerosol inhaler of breath or wheezing cholecalciferol (vitamin D3) 1,250 1,250 mcg PO QWEEK 12/16/24 03/01/25 mcg (50,000 unit) capsule clonazepam 1 mg tablet 1 mg PO Q8H 12/16/24 03/01/25 garlic 5,000 mcg tablet 5 mg PO DAILY 12/16/24 12/26/24 lactobacillus combo no.11 15 1 cap PO DAILY 12/16/24 03/01/25 billion cell sprinkle capsule (Probiotic) meclizine 50 mg tablet 50 mg PO BID PRN dizziness 12/16/24 12/26/24 milk thistle 150 mg capsule 150 mg PO DAILY 12/16/24 03/01/25 multivitamin (Daily Multi-Vitamin 1 tab PO DAILY 12/16/24 03/01/25 tablet) red yeast rice 600 mg capsule 600 mg PO DAILY 12/16/24 12/26/24 tirzepatide 5 mg/0.5 mL 5 mg subcut .[id number] 12/16/24 03/01/25 subcutaneous pen injector (Katie) Previous Rx's ?Medication ?Instructions ?Recorded ondansetron 4 mg disintegrating 4 mg PO Q6H PRN nausea and 03/24/24 tablet vomiting #20 tabs ciprofloxacin HCl 250 mg tablet 250 mg PO BID #14 tabs 03/01/25 (Cipro) phenazopyridine 200 mg tablet 200 mg PO Q8H PRN pain #15 tabs 03/01/25 (Pyridium) Allergies Allergy/AdvReac Type Severity Reaction Status Date / Time cephalexin (From Keflex) Allergy Intermediate Rash Verified 03/01/25 11:45 moxifloxacin (From Avelox) Allergy Intermediate Abdominal Verified 03/01/25 11:45 Pain nitrofurantoin (From Allergy Intermediate Rash Verified 03/01/25 11:45 Macrobid) morphine Allergy Vomiting Verified 03/01/25 11:45 Opioid HPI Opioid Management Most Recent Opioid Data: Last Pain Scale 4 03/24/24, 09:08 Review of Systems ROS Narrative A ten point review of systems is negative except as noted above. [facility] Medical History (Updated 03/01/25 @ 12:18 by Brendan Wallace MD) COTTER (dyspnea on exertion) ?R06.09 - Other forms of dyspnea (ICD-10) Disc disease with myelopathy GERD (gastroesophageal reflux disease) ?K21.9 - Gastro-esophageal reflux disease without esophagitis (ICD-10) Chronic glossitis ?K14.0 - Glossitis (ICD-10) Edentulous ?K08.109 - Complete loss of teeth, unspecified cause, unspecified class (ICD-10) Gastritis ?K29.70 - Gastritis, unspecified, without bleeding (ICD-10) Chronic sinusitis ?J32.9 - Chronic sinusitis, unspecified (ICD-10) M?ni?re's disease ?H81.09 - Meniere's disease, unspecified ear (ICD-10) Tinnitus ?H93.19 - Tinnitus, unspecified ear (ICD-10) Benign neoplasm of liver ?D13.4 - Benign neoplasm of liver (ICD-10) Hearing loss ?H91.90 - Unspecified hearing loss, unspecified ear (ICD-10) Hypercholesterolemia ?E78.00 - Pure hypercholesterolemia, unspecified (ICD-10) Liver cyst ?K76.89 - Other specified diseases of liver (ICD-10) Pancreatic cyst ?K86.2 - Cyst of pancreas (ICD-10) Transient ischemic attack (2015) ?G45.9 - Transient cerebral ischemic attack, unspecified (ICD-10) Carpal tunnel syndrome ?G56.00 - Carpal tunnel syndrome, unspecified upper limb (ICD-10) Fibromyalgia ?M79.7 - Fibromyalgia (ICD-10) Neck pain ?M54.2 - Cervicalgia (ICD-10) Back pain ?M54.9 - Dorsalgia, unspecified (ICD-10) Depression ?F32.A - Depression, unspecified (ICD-10) Panic attacks ?F41.0 - Panic disorder [episodic paroxysmal anxiety] (ICD-10) Anxiety ?F41.9 - Anxiety disorder, unspecified (ICD-10) Chronic obstructive pulmonary disease ?J44.9 - Chronic obstructive pulmonary disease, unspecified (ICD-10) Vertigo ?R42 - Dizziness and giddiness (ICD-10) Dyspareunia Menopause ?Z78.0 - Asymptomatic menopausal state (ICD-10) IBS (irritable bowel syndrome) ?K58.9 - Irritable bowel syndrome, unspecified (ICD-10) Chronic kidney disease ?N18.9 - Chronic kidney disease, unspecified (ICD-10) Constipation ?K59.00 - Constipation, unspecified (ICD-10) Palpitations ?R00.2 - Palpitations (ICD-10) Hypertension ?I10 - Essential (primary) hypertension (ICD-10) Diabetes ?E11.9 - Type 2 diabetes mellitus without complications (ICD-10) Hypothyroidism ?E03.9 - Hypothyroidism, unspecified (ICD-10) Surgical History (Updated 12/16/24 @ 13:42 by Mary Aceves NP) History of carpal tunnel release ?Z98.890 - Other specified postprocedural states (ICD-10) H/O sinus surgery ?Z98.890 - Other specified postprocedural states (ICD-10) H/O eye surgery ?Z98.890 - Other specified postprocedural states (ICD-10) H/O section ?Z98.891 - History of uterine scar from previous surgery (ICD-10) History of cardiac catheterization ?Z98.890 - Other specified postprocedural states (ICD-10) History of liver biopsy ?Z98.890 - Other specified postprocedural states (ICD-10) H/O biopsy of pancreas ?Z98.890 - Other specified postprocedural states (ICD-10) H/O Spinal surgery ?Z98.890 - Other specified postprocedural states (ICD-10) History of hernia repair ?Z98.890 - Other specified postprocedural states (ICD-10) ?Z87.19 - Personal history of other diseases of the digestive system (ICD-10) History of colonoscopy ?Z98.890 - Other specified postprocedural states (ICD-10) History of cholecystectomy ?Z90.49 - Acquired absence of other specified parts of digestive tract (ICD-10) Family History (Updated 12/16/24 @ 13:21 by Mary Aceves NP) Other Family history of heart disease Family history of hypertension Family history of myocardial infarction Social History (Updated 12/16/24 @ 13:12 by Mary Aceves NP) Within the past year, how often did you have a drink containing alcohol: never Score interpretation: A score less than 3 is consistent with normal alcohol consumption. Smoking status: Current every day smoker What tobacco products do you use: cigarettes Packs per day: 1 Years smoked: 15 Smoking pack-years: 15.00 Non-prescribed substance use: cannabis (any form) Highest level of school completed/degree received: high school graduate Little interest or pleasure in doing things: not at all Feeling down, depressed, or hopeless: not at all Exam Narrative Exam Narrative: Nurses note and vital signs reviewed and patient is not hypoxic. General: The patient appears well and in no apparent distress. Patient is resting comfortably on cart. Skin: Warm, dry, no pallor noted. There is no rash noted. Head: Normocephalic, atraumatic Eye: Normal conjunctiva, no drainage Ears, Nose, Mouth, and Throat: oral mucosa is moist. Nares patent. Cardiovascular: Regular Rate and Rhythm Respiratory: Patient is in no distress, no accessory muscle use, lungs are clear to auscultation, no wheezing, rales or rhonchi Back: non-tender, no CVA tenderness bilaterally to percussion. GI: Soft and nontender Musculoskeletal: The patient has no evidence of calf tenderness, no pitting edema, symmetrical pulses noted bilaterally Neurological: A&O, normal speech Psychiatric: Cooperative Constitutional Vital Signs, click to edit/add: Last Vital Signs Temp 98.0 F 03/01/25 11:45 Pulse 73 03/01/25 11:45 Resp 16 03/01/25 11:45 BP 151/101 H 03/01/25 11:45 Pulse Ox 98 03/01/25 11:45 O2 Del Method Room Air 03/01/25 11:45 Course Vital Signs Vital signs: Vital Signs Temperature 98.0 F 03/01/25 11:45 Pulse Rate 73 03/01/25 11:45 Respiratory Rate 16 03/01/25 11:45 Blood Pressure 151/101 H 03/01/25 11:45 Pulse Oximetry 98 03/01/25 11:45 Oxygen Delivery Method Room Air 03/01/25 11:45 Temperature 98.0 F 03/01/25 11:45 Pulse Rate 73 03/01/25 11:45 Respiratory Rate 16 03/01/25 11:45 Blood Pressure 151/101 H 03/01/25 11:45 Pulse Oximetry 98 03/01/25 11:45 Oxygen Delivery Method Room Air 03/01/25 11:45 Medical Decision Making MDM Narrative Medical decision making narrative: UTI is identified. Gonorrhea and Chlamydia test are pending and if positive the patient would need to be contacted. Treatment diagnosis and follow-up were discussed with the patient. Differential Diagnosis Differential Diagnosis: UTI, gonorrhea, chlamydia Lab Data Lab results reviewed: Yes I reviewed the patient's lab results Labs: Lab Results 03/01/25 Range/Units 11:48 Urine Color Lt. yellow (YELLOW) Urine Clarity Clear (CLEAR) Urine pH 6.5 (5.0-9.0) Ur Specific [place] <=1.005 A (1.005-1.025) Urine Protein Negative (NEG/TRACE) mg/dL Urine Glucose (UA) >=1000 A (NEGATIVE) mg/dL Urine Ketones Negative (NEGATIVE) mg/dL Urine Occult Blood Large A (NEGATIVE) Urine Nitrite Negative (NEGATIVE) Urine Bilirubin Negative (NEGATIVE) Urine Urobilinogen 0.2 (0.2-1.0) EU/dL Ur Leukocyte Esterase Trace A (NEGATIVE) Urine RBC 10-20 A (0-2) #/HPF Urine WBC 10-20 A (NONE SEEN) #/HPF Ur Squamous Epith Cells Rare (NONE/RARE) #/LPF Ur Transition Epith Cell Rare A (NONE SEEN) #/LPF Urine Crystals None seen (None Seen) #/HPF Urine Bacteria Trace A (NONE SEEN) #/HPF Urine Casts None seen (NONE SEEN) #/LPF Urine Mucus None seen (NONE SEEN) Ur Culture Indicated? Yes[place] [place] Discharge Chief Complaint: Urogenital-Female Clinical Impression: Urinary tract infection Patient Disposition: Home, Self-Care Time of Disposition Decision: 12:18 Condition: Good Mode of Transportation: Private Vehicle Prescriptions / Home Meds: New phenazopyridine [Pyridium] 200 mg tablet 200 mg PO Q8H PRN (Reason: pain) Qty: 15 0RF ciprofloxacin HCl [Cipro] 250 mg tablet 250 mg PO BID Qty: 14 0RF No Action atenolol 50 mg tablet 25 mg PO DAILY Jardiance 10 mg tablet 10 mg PO DAILY escitalopram oxalate 20 mg tablet 20 mg PO .qhs levothyroxine 75 mcg tablet 75 mcg PO QAM omeprazole 20 mg capsule,delayed release(DR/EC) 20 mg PO QAM PRN (Reason: reflux) Rx Instructions: before meal oxycodone-acetaminophen 5-325 mg tablet 1 tab PO Q12H PRN (Reason: pain) potassium chloride [Klor-Con M20] 20 mEq tablet,ER particles/crystals 20 meq PO DAILY ondansetron 4 mg tablet,disintegrating 4 mg PO Q6H PRN (Reason: nausea and vomiting) Qty: 20 0RF clonazepam 1 mg tablet 1 mg PO Q8H meclizine 50 mg tablet 50 mg PO BID PRN (Reason: dizziness) red yeast rice 600 mg capsule 600 mg PO DAILY Rx Instructions: give with meal/snack milk thistle 150 mg capsule 150 mg PO DAILY Rx Instructions: give with meal/snack garlic 5,000 mcg tablet 5 mg PO DAILY multivitamin [Daily Multi-Vitamin] Tablet 1 tab PO DAILY cholecalciferol (vitamin D3) 1,250 mcg (50,000 unit) capsule 1,250 mcg PO QWEEK Probiotic 15 billion cell capsule, sprinkle 1 cap PO DAILY Rx Instructions: do not crush/chew/cut; swallow whole OR may open and sprinkle in cold drink/food albuterol sulfate 90 mcg/actuation HFA aerosol inhaler 2 inh inhalation Q8H PRN (Reason: shortness of breath or wheezing) Mounjaro 5 mg/0.5 mL pen injector 5 mg SUBCUT .[id number] Print Language: Italian Instructions: Urinary Tract Infection in Women (ED) Referrals: ERIK SMITH [Primary Care Provider, Family Practice] - 1 week
[2025-03-01 12:04] LABS: Bilirubin Urine NEGATIVE (NEGATIVE); Blood Urine LARGE (NEGATIVE); Clarity Urine CLEAR (CLEAR); Color Urine LT. YELLOW (YELLOW); Glucose Urine UA >=1000 mg/dL (NEGATIVE); Ketones Urine NEGATIVE (NEGATIVE); Leukocyte Esterase Urine TRACE (NEGATIVE); Nitrite Urine NEGATIVE (NEGATIVE); Protein Urine NEGATIVE (NEG/TRACE); Specific Gravity Urine <=1.005 (1.005-1.025); Urobilinogen Urine 0.2 EU/dL (0.2-1.0); pH Urine 6.5 (5.0-9.0)
[2025-03-01 12:14] LABS: Bacteria Urine TRACE #/HPF (NONE SEEN); Cast Seen? NONE SEEN #/LPF (NONE SEEN); Crystals Seen? None Seen #/HPF (None Seen); Mucus Urine NONE SEEN (NONE SEEN); Squamous Epithelial Cell Urine RARE #/LPF (NONE/RARE); Transitional Epi Cells Urine RARE #/LPF (NONE SEEN); Urine Culture Indicated YES-FRMC
[2025-03-01] MEDS: CIPROFLOXACIN HCL 500 MG TABLET PO (12:26)
[2025-03-01 12:30] VITALS: BP 134/77
[2025-03-03 22:07] LABS: Neisseria gonorrhoeae, NAA Negative (Negative)
== END 2025-03-01 12:30 | disposition home or self-care (01) ==
PROVIDERS: Emergency Provider Emergency Medicine; PCP Family Medicine
DX: N39.0 Urinary tract infection, site not specified (principal); F17.210 Nicotine dependence, cigarettes, uncomplicated; Z20.2 Contact with and (suspected) exposure to infections with a predominantly sexual mode of transmission
CPT/HCPCS: 81001; 87086; 87491; 87591; 99283

== ENCOUNTER 2025-07-27 08:54 | Outpatient (OUT) | payer MEDICARE, MEDICAID, SELFPAY ==
--- OUTSIDE RECORDS SUMMARY | 2022-06-06 06:30 | XMS_ITS | Continuity of Care Document ---
Author Organization [facility] Address [address] [place] [address] Phone Care Team Providers Care Insurance Follow Up Specialist Name Role Phone Ronald Morris DDS Unavailable [...] Procedure Date Nutrit Couns For Control Of [place] Dis May Limited Oral Eval Advance Directives Directive Yes / No Effective Date File Name No Information Encounters Encounter Description Practice Location Reason(s) For Visit Diagnoses Date Provider Providers Copied on Encounter [facility], [address] [place], [place], [id number], [place] tel:[phone] Dental Clinic cons (chief complaint) Encounter for screening for dental disorders Artuor Cardenas. [address] [place], [place], [id number], [place]. tel:[phone] Family History Family Member Type Diagnosis Age At Onset No Information Payers Payer name Insurance type Covered republican ID Bill sen(s) [employer] Medicaid Primary [facility] [id number] Social History Type Description Quantity Date Captured [...]
--- OUTSIDE RECORDS SUMMARY | 2025-07-14 10:20 | XMS_ITS | Encounter Summary ---
Author Organization [facility] Address [address] [place] [address] Care Team Providers Care Mica Laminating Machine Feeder Name Role Phone Alma Rosa Lozada MD Primary Care Provider [phone] Alma Rosa Lozada MD Unavailable Michelle Cuenca Unavailable Reason for Visit * ReasonCommentsMenopausePt present today for post menopausal spotting and cramping. Encounter Details DateTypeDepartmentCare Team (Latest Contact Info)Uolhvjvtyvd97/21/2025 11:20 AM EDTOffice Visit NOMGenevieve Frazier OBNELIDA [address] [place] [address] Lesa Orta PA [address] [place], [place] [id number] Post-menopause bleeding; Pelvic cramping; Encounter for screening mammogram for malignant neoplasm of breast; Urinary tract infection without hematuria, site unspecified; Menorrhagia with regular cycle Social History Tobacco UseTypesPacks/DayYears UsedDateSmoking Tobacco: Every DayCigarettes Smokeless Tobacco: Never Comments:5 or less cigs/day Alcohol UseStandard Drinks/WeekCommentsNot Currently0 (1 standard drink = 0.6 oz pure alcohol)B1300 Health LiteracyAnswerDate RecordedHow often do you need to have someone help you when you read instructions, pamphlets, or other written material from your doctor or pharmacy?Never4AUDIT-CAnswerDate Recorded Q1: How often do you have a drink containing alcohol?Never04/03/2024Q2: How many drinks containing alcohol do you have on a typical day when you are drinking? Patient does not drink04/03/2024Q3: How often do you have six or more drinks on one occasion?Never04/03/2024Overall Financial Resource Strain (CARDIA)AnswerDate RecordedHow hard is it for you to pay for the very basics like food, housing, medical care, and heating?Not very hard04/03/2024HQ-2AnswerDate RecordedPatient Health Questionnaire-2 Egwcv267FinWashington [facility] - Occupational Stress QuestionnaireAnswerDate RecordedDo you feel stress - tense, restless, nervous, or anxious, or unable to sleep at night because your mind is troubled all the time - these days?Only a xwvfdp8904/03/2024Hunger Vital SignAnswerDate RecordedWithin the past 12 months, you worried that your food would run out before you got the money to buymore.Never true04/03/2024Within the past 12 months, the food you bought just didn't last and you didn't have money to get more.Never true04/03/2024RAPARE - TransportationAnswerDate RecordedIn the past 12 months, has lack of transportation kept you from medical appointments or from getting medications?No04/03/2024In the past 12 months, has lack of transportation kept you from meetings, work, or from getting things needed for daily living?No04/03/2024CommentsNoSex and Gender Information ValueDate RecordedSex Assigned at BirthNot on fileLegal ZcdDpqtma66/15/2023 6:41 PM EDTGender IdentityNot on fileSexual OrientationNot on filedocumented as of this encounter Last Filed Vital Signs Vital SignReadingTime TakenCommentsBlood Uiisfcbw155/7810 11:59 AM EDT Pulse--Temperature--Respiratory Rate--Oxygen Saturation--Inhaled Oxygen Concentration--Mcdanj836 kg (242 lb)07/14/2025 11:59 AM EDTHeight--Body Mass Index37.6808 9:34 AM EDTdocumented in this encounter Progress Notes * JASMINE De Guzman - 07/14/2025 11:20 AM EDT Reason for Appointment: Patient ID: Génesis Baum is a 55 y.o. female who presents for Menopause (Pt present today for post menopausal spotting and cramping.) Patient presents today for Menopausal bleeding and cramping. MEDICATIONS Current Outpatient Medications Medication Instructions albuterol HFA (Ventolin HFA) 90 mcg/act inhaler 1 puff, Inhalation, Every 4 hours PRN atenolol (TENORMIN) 50 mg, Oral, Daily clonazePAM [...] 0.5-2.5 mg/3 mL nebulizer solution 3 mL, Nebulization, Every 6 hours, PRN Jardiance 10 mg, Oral, Daily Lactobacillus-Inulin (CULTURELLE DIGESTIVE DAILY PO) 1 tablet, Daily levothyroxine (Synthroid, Levoxyl) 75 MCG tablet TAKE 1 TABLET BY MOUTH ONCE EVERY MORNING ON AN EMPTY STOMACH meclizine (ANTIVERT) 25 mg, Oral, Daily PRN meloxicam (MOBIC) 15 mg, Oral, Daily Mounjaro 2.5 mg, Subcutaneous, Weekly Multiple Vitamin (multivitamin) tablet 1 tablet, Daily phenazopyridine (PYRIDIUM) 200 mg, 3 times daily PRN potassium chloride CR (Klor-Con M20) 20 MEQ ER tablet 20 mEq, Oral, Daily Red Yeast Rice Extract (RED YEAST RICE PO) 1 tablet, Daily tiZANidine (Zanaflex) 4 MG tablet TAKE 1/2 TO 1 TABLET BY MOUTH EVERY MORNING AND 1 TABLET AT BEDTIME Umeclidinium-Vilanterol (Anoro Ellipta) 62.5-25 MCG/ACT aerosol powder 1 puff, Inhalation, Every 24hours ALLERGIES Allergies Allergen Reactions Corticosteroids Unknown Other Reaction(s): Other (See Comments) Morphine Unknown Other Reaction(s): Other (See Comments), Unknown Reaction, Vomiting Nitrofurantoin Macrocrystal Unknown Azithromycin Unknown and Rash Other Reaction(s): Other (See Comments) Cephalexin Rash Moxifloxacin Rash Other Reaction(s): Other (See Comments) Nitrofurantoin Unknown and Rash Other Reaction(s): Other (See Comments), Unknown Reaction PROBLEMS Active Ambulatory Problems Diagnosis Date Noted Essential hypertension 03/31/2023 Generalized anxiety disorder 03/31/2023 Chronic obstructive pulmonary disease (HCC) 03/31/2023 Pulmonary emphysema (HCC) 03/31/2023 Pure hypercholesterolemia 03/31/2023 Sensorineural hearing loss, bilateral 03/31/2023 Smoker 03/31/2023 Type 2 diabetes mellitus with diabetic chronic kidney disease (HCC) 03/31/2023 Abnormal gait 04/15/2023 Acquired hypothyroidism 02/28/2008 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 Bilateral tinnitus 04/15/2023 Chronic reactive otitis externa of both ears 04/15/2023 Drug-induced adrenocortical insufficiency (HCC) 04/15/2023 DUB (dysfunctional uterine bleeding) 04/15/2023 Irritable colon 04/07/2008 Meniere's disease 04/15/2023 Morbid obesity ([facility]-HCC) 04/15/2023 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 Other rosacea 04/15/2023 Pancreas, cyst, true (HCC) 04/15/2023 Low back pain 02/28/2008 Chronic pansinusitis 03/21/2019 Moderate persistent asthma without complication ([facility]) 04/16/2023 History of gastritis 04/16/2023 Bilateral carpal tunnel syndrome 04/24/2023 Chronic glossitis 05/16/2023 Myalgia 07/04/2023 Depression 07/31/2023 GERD (gastroesophageal reflux disease) 07/31/2023 History of TIA (transient ischemic attack) 07/31/2023 Infected sebaceous cyst 07/31/2023 Abnormal CBC 12/25/2023 Menopause 12/25/2023 Cervicalgia 04/26/2024 Fibromyalgia 04/26/2024 Pain in joint, pelvic region and thigh 04/26/2024 Benign paroxysmal positional vertigo 04/26/2024 Lumbosacral radiculopathy 04/26/2024 Anxiety and depression 04/26/2024 Degenerative disc disease, lumbar 04/26/2024 Degenerative disc disease, cervical 04/26/2024 Disturbance of skin sensation 04/26/2024 Median neuropathy 04/26/2024 Post concussion syndrome 04/26/2024 Serous cystadenoma of pancreas 06/03/2024 Bleeding after intercourse 11/10/2024 Resolved Ambulatory Problems Diagnosis Date Noted Stage 3a chronic kidney disease ([facility]) 03/31/2023 Acute gastritis 02/28/2008 Anxiety state 02/28/2008 Asthma with exacerbation ([facility]) 02/28/2008 Benign neoplasm of skin 09/27/2009 Abdominal muscle pain 02/28/2008 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 Pansinusitis 04/15/2023 Swelling of vagina 04/15/2023 Abnormal vaginal bleeding 07/26/2016 Antidepressants causing adverse effect in therapeutic use 11/22/2015 Diabetic renal disease ([facility]) 10/18/2017 Dizziness 11/22/2015 Moderate episode of recurrent major depressive disorder ([facility]) 11/22/2015 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 Myopathy 07/26/2023 BMI 45.0-49.9, adult ([facility]) 07/31/2023 Transient alteration of awareness 04/26/2024 Vertigo 04/26/2024 Back pain 04/26/2024 Brachial neuritis or radiculitis 04/26/2024 Carpal tunnel syndrome 04/26/2024 Backache 04/26/2024 Past Medical History: Diagnosis Date Alteration of awareness Anxiety Asthma (HCC) Chest pain Confusion 04/01/2015 COPD (chronic obstructive pulmonary disease) (HCC) Diabetes mellitus (HCC) Diarrhea Disease of thyroid gland Dyspnea Gallbladder disease Genital herpes History of psychiatric hospitalization Liver disease Liver lesion Pancreas cyst (HCC) Rotavirus infection Syncope Tooth abscess Transient ischemic attack (TIA) Vomiting HISTORY PAST MEDICAL HISTORY SOCIAL HISTORY Past Medical History: Diagnosis Date Alteration of awareness Antidepressants causing adverse effect in therapeutic use 11/22/2015 Anxiety Asthma (HCC) 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 Carpal tunnel syndrome Chest pain Confusion 04/01/2015 and weakness COPD (chronic obstructive pulmonary disease) (HCC) Degenerative disc disease, cervical Degenerative disc disease, lumbar Depression Diabetes mellitus (HCC) Diarrhea Disease of thyroid gland Dyspnea Fibromyalgia Gallbladder disease Genital herpes History of psychiatric hospitalization psych admission 08/2015, 07/2015 Liver disease Liver lesion Lumbosacral radiculopathy Pancreas cyst (HCC) Rotavirus infection Stage 3a chronic kidney disease ([facility]-HCC) 03/31/2023 Syncope Tooth abscess Transient alteration of awareness 04/26/2024 Transient ischemic attack (TIA) Vertigo Vomiting Social History Tobacco Use Smoking status: Every Day Current packs/day: 1.00 Types: Cigarettes Smokeless tobacco: Never Tobacco comments: 5 or less cigs/day Vaping Use Vaping status: Never Used Substance Use Topics Alcohol use: Not Currently [...] CATHETERIZATION SECTION, LOW TRANSVERSE 1991 CHOLECYSTECTOMY 2007 DILATION AND CURETTAGE OF UTERUS 12/26/2024 Endometrium [...] Exam Constitutional: Appearance: Normal appearance. She is normal weight. HENT: Head: Normocephalic. Cardiovascular: Rate and Rhythm: Normal rate. Pulses: Normal pulses. Pulmonary: Effort: Pulmonary effort is normal. Breath sounds: Normal breath sounds. Abdominal: Palpations: Abdomen is soft. Musculoskeletal: General: Normal range of motion. Neurological: General: No focal deficit present. Mental Status: She is alert and oriented to person, place, and time. Psychiatric: Mood and Affect: Mood normal. Behavior: Behavior normal. Thought Content: Thought content normal. Judgment: Judgment normal. Vitals and nursing note reviewed. Vitals: Estimated body mass index is 36.28 kg/m?? as calculated from the following: Height as of 04/29/25: 5' 7.2 . Weight as of 04/29/25: 233 lb. BP: No LMP recorded. Patient is premenopausal. Assessment/Plan ICD-10-CM 1. Post-menopause bleeding N95.0 2. Pelvic cramping R10.20 3. Encounter for screening mammogram for malignant neoplasm of breast Z12.31 Bilateral screening mammogram Bilateral screening mammogram 4. Urinary tract infection without hematuria, site unspecified N39.0 POCT urinalysis dipstick manually resulted Pt present today to discuss the menopausal bleeding and cramping she was having a week ago. Pt states she is no longer bleeding and when she bled it was only when she wiped. Pt is still complaining of pelvic cramping today. Pt is also complaining of a UTI. Pt was given a cup for a sample of urine to dip. Pt gave a sample and came back negative for a UTI. Pt is aware she is due for a pap smear/mammogram. Mammogram order was given to pt to obtain at [facility] and Annual appointment to be scheduled w/Lesa Orta. Patient has had recent D&C in December which was reviewed and negative. We will order another US and forllow up results. Pt encouraged to schedule annual exam and we will discuss results at that time. Pt encouraged to get colonoscopy but she is certain she has had no rectal bleeding despite history of hemorrhoid Documented by Adry Mendez MA on behalf of: JASMINE De Guzman documented in this encounter Plan of Treatment DateTypeDepartmentCare Team (Latest Contact Info)Efcmqmnjhbw54/26/2025 2:00 PM ESTProcedure Visit AKOSUAS Freddie PADILLA [address] [address] Lesa Orta PA [address] [place] [address] NameTypePriorityAssociated DiagnosesOrder ScheduleBilateral screening mammogram ImagingRoutine Encounter for screening mammogram for malignant neoplasm of breast Expected: 07/14/2025 (Approximate), Expires: 09/13/2026US Pelvis w/ TVImaging Routine Post-menopause bleeding Pelvic cramping Expected: 07/14/2025 (Approximate), Expires: 07/14/2026documented as of this encounter Procedures Procedure NamePriorityDate/TimeAssociated DiagnosisCommentsPOCT URINALYSIS PQYDWQFGSgemyma61/21/2025 11:49 AM EDT Urinary tract infection without hematuria, site unspecified documented in this encounter Results * POCT urinalysis dipstick manually resulted (07/14/2025 11:49 AM EDT)Component ValueRef RangeTest MethodAnalysis TimePerformed AtPathologist SignatureColor, UAYellowClarity, UAClearGlucose, UA3+Negative - 1999(110) ++++ mg/dLBilirubin, UANegativeNegative - 4(70) +++ mg/dLKetones, UANegativeNegative - 160(16) ++++ mg/dLSpec Grav, UA1.0051 - 1.03Blood, UANegativeNegative - 50 Eleno/mcLpH, UA5.5 5 - 9Protein, UANegativeNegative - 2000(20) ++++ mg/dLUrobilinogen, UA1.00.2 - 12 mg/dLLeukocytes, UANegativeNegative - 500+++ Catherine/mcLNitrite, UANegative Negative - PositiveSpecimen (Source)Anatomical Location / LateralityCollection Method / VolumeCollection TimeReceived SublRkwoq74/21/2025 11:49 AM EDT Narrative Authorizing ProviderResult TypeResult StatusBeth Israel Deaconess HospitalOINT OF CARE TEST ENTER/EDIT ORDERABLESFinal Result documented in this encounter Visit Diagnoses Diagnosis Post-menopause bleeding Postmenopausal bleeding Pelvic cramping Encounter for screening mammogram for malignant neoplasm of breast Urinary tract infection without hematuria, site unspecified Menorrhagia with regular cycle documented in this encounter Additional Health Concerns AssessmentNoted TimePHQ-9 Depression Total Score: 11:00 AM EST documented as of this encounter Care Teams Team MemberRelationshipSpecialtyStart DateEnd Date Alma Rosa Lozada MD [address] [facility] [address] [place] [address] PCP - GeneralFamily Medicine04/16/23 Alma Rosa Lozada MD [address] [facility] [address] [place] [address] PCP - ACO Reach09/23/23 Michelle Cuenca PA [address] [facility] [address] [place] [address] Physician AssistantNeurology12/17/24documented as of this encounter
--- OUTSIDE RECORDS SUMMARY | 2025-07-27 08:58 | XMS_ITS | Clinical Summary ---
Author Organization [facility] Address [address], [address] [place] [address] Care Team Providers Care Wastewater Engineer Name Role Phone Unavailable Primary Care Provider Unavailabl e Social History Tobacco UseTypesPacks/DayYears UsedDateSmoking Tobacco: Never Assessed CommentsUnknownSex and Gender InformationValueDate RecordedSex Assigned at Not on fileLegal QsjGwdnoc82/18/2019 8:37 AM ESTGender IdentityNot on fileSexual OrientationNot on file Plan of Treatment Not on file Insurance
--- OUTSIDE RECORDS SUMMARY | 2025-07-27 08:58 | XMS_ITS | Encounter Summary ---
Author Organization [facility] Address [address] [facility] [address] Care Team Providers Care Medicaid Plan Compliance Director Name Role Phone Alma Rosa Smith MD Primary Care Provider [phone] Alma Rosa Smith MD Unavailable Sunday, Vidya SHEET TURNER Unavailable [phone] Coco Paula RN Unavailable [phone] PringleLulú SHEET TURNER Unavailable Michelle Cuenca Unavailable Encounter Details DateTypeDepartmentCare Team (Latest Contact Info)Vapnzemlnpy25/20/2024Clinisync Result Encounter [facility] External Department Unsolicited Julia Chen PA [address] [facility] [address] [place] [address] Social History Tobacco UseTypesPacks/DayYears UsedDateSmoking Tobacco: FormerCigarettes Smokeless Tobacco: Never Comments:5 or less cigs/day [...] and heating?Not very hard04/03/2024HQ-2AnswerDate RecordedPatient Health Questionnaire-2 Zwuxy046Fin[facility] [place] [facility] Occup[facility] - Occupational Stress QuestionnaireAnswerDate RecordedDo you feel stress - tense, restless, nervous, or anxious, or unable to sleep at night because your mind is troubled all the time - these days?Only a mtkutq1804/03/2024Hunger Vital SignAnswerDate RecordedWithin the past 12 months, [...] ValueDate RecordedSex Assigned at BirthNot on fileLegal ZrgPdngrw71/15/2023 6:41 PM EDTGender IdentityNot on fileSexual OrientationNot on filedocumented as of this encounter Functional Status * Over the past 2 weeks, how often have you been bothered by any of the following problems?QuestionAnswerDate of AssessmentAuthorLittle interest or pleasure in doing thingsSeveral days04/29/2025 9:22 AM Eliseo ADLEReling down, depressed, or hopelessSeveral 04/29/2025 9:22 AM MANJEET ADLER Patient Health Questionnaire-2 Usrum244 9:22 AM MANJEET ADLER * QuestionAnswerDate of AssessmentAuthorTrouble falling or staying asleep, or sleeping too muchNot at all09/04/2024 11:00 AM Nu Walker LPNFeeling tired or having little energyNot at all09/04/2024 11:00 AM Nu Walker LPNPoor appetite or overeatingNot at all09/04/2024 11:00 AM Nu Walker LPNFeeling bad about yourself - or that you are a failure or have let yourself or your family downNot at all09/04/2024 11:00 AM Nu Walker LPNTrouble concentrating on things, such as reading the newspaper or watching television Not at all09/04/2024 11:00 AM Nu Walker LPNMoving or speaking so slowly that other people could have noticed? Or the opposite - being so fidget y or restless that you have been moving around a lot more than usual.Not at all09/04/2024 11:00 AM Nu Walker LPNThoughts that you would be better off or hurting yourself in some wayNot at all09/04/2024 11:00 AM Nu Walker LPNPatient Health Questionnaire-9 Uvesv49711/05/2023 11:00 AM Nu Walker LPN * If you checked off any problems on this questionnaire so far,QuestionAnswer Date of AssessmentAuthorHow difficult have these problems made it for you to do your work, take care of things at home, or get along with other people?Very fezlphxrf67/06/2025 9:22 AM MANJEET ADLER documented as of this encounter Plan of Treatment DateTypeDepartmentCare Team (Latest Contact Info)Hxndcmxkhsw57/26/2025 2:00 PM ESTProcedure Visit [facility] [place] OBNELIDA [address] [place] [address] Lesa Orta PA [address] [facility] [place], [place] [address] documented as of this encounter Procedures Procedure NamePriorityDate/TimeAssociated DiagnosisCommentsMR ABDOMEN W AND WO VTASSXXY36/20/2024 7:20 AM EDT documented in this encounter Results * MR abdomen w and wo contrast (05/13/2024 7:20 AM EDT)Anatomical Region LateralityModalityAbdomenMagnetic ResonanceSpecimen (Source)Anatomical Location / LateralityCollection Method / VolumeCollection TimeReceived Time 05/13/2024 7:20 AM EDT Narrative 05/13/2024 7:22 AM EDT [facility] ?[address] ? [place] [address] ? Magnetic Resonance Report ? Signed ? Patient: KEITH BAUM L ?MR#: [id number] ?? : 1970 ?Acct:[id number] ?? Age/Sex: 53 / F ?ADM Date: 05/09/24 ?? Loc: MRI ? Attending Dr: JULIA CHEN ? Ordering Physician: JULIA CHEN ?? Date of Service: 05/09/24 ?? Procedure(s): MR abdomen wo/w con ?? Accession Number(s): [id number] ? cc: ALMA ROSA SMITH ; JULIA CHEN ? [facility] ? [address] [facility] ? [place] [address] ? Patient Name: ?? KEITH BAUM ? MRN: [facility]:[id number] ? date: 1970 ?Sex: F ?? Assigned Patient Location: MRI ?? Current Patient Location: ? Accession/Order Number: [id number] ?? Exam Date: 05/09/2024 ??13:30 ?Report Date: 05/13/2024 ??07:20 ? At the request of: ?? JULIA CHEN ? Procedure: ??MR abdomen wo/w con ? EXAMINATION: MR abdomen wo/w con ? 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 COMPARISON: 03/24/2024, 08/11/2022, 2020, 2018 ? TECHNIQUE: A comprehensive MRI examination of the abdomen was performed to ?? optimize visualization of suspected pathology. Images were obtained both ?? before ?? and after intravenous administration of Dotarem contrast. ? FINDINGS: ?? LIVER: No enlargement, atrophy, abnormal density, or significant focal lesion. ?? BILIARY: The gallbladder is absent ?? PANCREAS: Identified in the head of the pancreas is an area of signal ?? abnormality measuring 2.7 x 2.2 cm in axial image #16 and 3.6 cm in ?? craniocaudal extent, coronal image 15. This lesion has lobular margins. This ?? lesion does enhance measures between 1000 501,670 Hounsfield units on ?? precontrast imaging and 2800 Hounsfield units on postcontrast imaging ?? SPLEEN: No enlargement or focal lesion. ?? KIDNEYS: No mass or obstruction. ?? ADRENALS: No mass or enlargement. ?? AORTA/VASCULAR: No aneurysm or dissection. ?? RETROPERITONEUM: No mass or adenopathy. ?? BOWEL/MESENTERY: No visible mass, obstruction, or bowel wall thickening. ?? ABDOMINAL WALL: No mass or hernia. ?? BONES: No bony lesion or fracture. ?? LUNG BASES: No visible pleural disease. Lung bases not well assessed with MRI. ?? OTHER: Negative. ? MR/MR abdomen wo/w con ?? IMPRESSION: ? 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 Stability over time ?? suggests a benign process however this lesion does enhance, the etiology is ?? indeterminate. ? Electronically authenticated by: HUMPHREY ??GUIDO ?? Date: 05/13/2024 ??07:20 ? Dictated By: ?Humphrey Lora M.D. ? Signed By: ?05/13/24721 ? DD/ 9 ? TD/TT: ? Vessel Captain: Procedure Note Radiology, Radiologist, MD - 05/13/[address] [address] Magnetic Resonance Report Signed Patient: KEITH BAUM LMR#: [id number] : 1970Acct:[id number] Age/Sex: 53 / FADM Date: 05/09/24 Loc: MRI Attending Dr: JULIA CHEN Ordering Physician: JULIA CHEN Date of Service: 05/09/24 Procedure(s): MR abdomen wo/w con Accession Number(s): [id number] cc: ALMA ROSA SMITH ; JULIA CHEN [address] [address] Patient Name: KEITH BAUM MRN: [id number] date: 1970 Sex: F Assigned Patient Location: MRI Current Patient Location: Accession/Order Number: [id number] Exam Date: 05/09/2024 13:30 Report Date: 05/13/2024 07:20 At the request of: JULIA CHEN Procedure: MR abdomen wo/w con EXAMINATION: MR abdomen wo/w con 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 Images were obtained both before and after intravenous administration of Dotarem contrast. FINDINGS: LIVER: No enlargement, atrophy, abnormal density, or significant focallesion. BILIARY: The gallbladder is absent PANCREAS: Identified in the head of the pancreas is an area of signal abnormality measuring 2.7 x 2.2 cm in axial image #16 and 3.6 cm in craniocaudal extent, coronal image 15. This lesion has lobular margins.This lesion does enhance measures between 1000 501,670 Hounsfield units on precontrast imaging and 2800 Hounsfield units on postcontrast imaging SPLEEN: No enlargement or focal lesion. KIDNEYS: No mass or obstruction. ADRENALS: No mass or enlargement. AORTA/VASCULAR: No aneurysm or dissection. RETROPERITONEUM: No mass or adenopathy. BOWEL/MESENTERY: No visible mass, obstruction, or bowel wall thickening. ABDOMINAL WALL: No mass or hernia. BONES: No bony lesion or fracture. LUNG BASES: No visible pleural disease. Lung bases not well assessed withMRI. OTHER: Negative. 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 Stability overtime suggests a benign process however this lesion does enhance, the etiologyis indeterminate. Electronically authenticated by: HUMPHREY LORA Date: 05/13/2024 07:20 Dictated By: Humphrey Lora M.D. Signed By:05/13/2422 DD/ 9 TD/TT: Vessel Captain: Authorizing ProviderResult TypeResult StatusJulia Chen PAI MRI PROCEDURES Final Result documented in this encounter Visit Diagnoses Not on filedocumented in this encounter Additional Health Concerns AssessmentNoted TimePHQ-9 Depression Total Score: 14004/16/2023 8:00 AM EDT documented as of this encounter Care Teams Team MemberRelationshipSpecialtyStart DateEnd Date Alma Rosa Smith MD [address] [facility] [address] [place] [address] PCP - GeneralFamily Medicine04/16/23 Alma Rosa Smith MD [address] [facility] [address] [place] [address] PCP - ACO Reach09/23/23SundayVidya LPN [address] [facility] [address] [place] [address] Licensed Practical NurseFamily Medicine Coco Paula, ASHLEY [address] [place] [address] Licensed Practical NurseFamily Medicine Lulú Pringle LPN [address] [facility] [address] [place] [address] Michelle Cuenca PA [address] [facility] [address] [place] [address] Physician AssistantNeurology12/17/24documented as of this encounter
--- OUTSIDE RECORDS SUMMARY | 2025-07-27 08:58 | XMS_ITS | Clinical Summary ---
Author Organization Nagi s tem Address [facility] [address] [place] [address] Care Team Providers Care Route Specialist Name Role Phone Unavailable Primary Care Provider Unavailabl e Allergies Active AllergyReactionsCriticalityNoted DateCommentsAzithromycinRash,Other (See Comments)Low11/22/20159235DtptmeoypzTeapIzz57/23/2023orticosteroids (Glucocorticoids)Other (See Comments)11/22/2015MorphineOther (See Comments), Gbrcsvqt60/29/2016MoxifloxacinRash,Other (See Comments)Low11/22/2015 NitrofurantoinOther (See Comments)11/22/2015Nitrofurantoin Monohyd/M-CrystRash, Other (See Comments)Low11/22/2015 Medications MedicationSigDispense QuantityRefillsLast FilledStart DateEnd DateStatus clonazePAM (KlonoPIN) 1 mg tablet Take 3 tablets (3 mg total) by mouth in the morning.Active oxyCODONE-acetaminophen (PERCOCET) 5-325 mg per tablet Take 1 tablet by mouth every 12 (twelve) hours.04/28/2024ctive KLOR-CON M20 20 mEq CR tablet Take 1 tablet (20 mEq total) by mouth in the morning.Active levothyroxine (SYNTHROID, LEVOTHROID) 75 MCG tablet 1 tablet (75 mcg total).Active JARDIANCE 10 mg tablet tablet Take 1 tablet (10 mg total) by mouth.Active MOUNJARO 2.5 mg/0.5 mL pen injector INJECT 0.5ML SUBCUTANEOUSLY ONCE A WEEKActive Active Problems ProblemNoted DateDiagnosed DateSerous cystadenoma of uectpwqa93/10/2024 Family History Medical HistoryRelationNameCommentsCancerMaternal AuntbreastColon cancerMaternal GrandmotherRelationNameStatusCommentsFatherDeceasedMaternal AuntDeceasedMaternal GrandmotherDeceasedMotherAlive Social History Tobacco UseTypesPacks/DayYears UsedDateSmoking Tobacco: Every DayCigarettes Smokeless Tobacco: Never Tobacco Cessation:Ready to Q uit: Not Asked; Counseling Given: Not Answered Alcohol UseStandard Drinks/WeekCommentsNever0 (1 standard drink = 0.6 oz pure alcohol)ChildcareAnswerDate LpzhmvcoAksgwkhlzCmdgqoe66/12/2019EmploymentAnswer Date QhiuzfodSynlawhvhnHmirvbg68/12/2019Hunger ScreeningAnswerDate Recorded Within the past 12 months we worried whether our food would run out before we got money to buy more.Never True06/03/2024Within the past 12 months the food we bought just didn't last and we didn't have money to get more.Never True 06/03/2024CommentsUnknownSex and Gender InformationValueDate RecordedSex Assigned at BirthNot on fileLegal HcjFidlgv78/06/2015 11:44 AM EDTGender IdentityNot on fileSexual OrientationNot on file Last Filed Vital Signs Vital SignReadingTime TakenCommentsBlood Ypthyomg662/7609 1:34 PM EDT Itsab408506/03/2024 1:34 PM EDTTemperature--Respiratory Rate--Oxygen Saturation-- Inhaled Oxygen Concentration--Ooybws442.1 kg (231 lb 12.8 oz)06/03/2024 1:34 PM ECTYirrnk645.6 cm (5' 6 )06/03/2024 1:34 PM EDTBody Mass Index37.4109 1:34 PM EDT Plan of Treatment Health MaintenanceDue DateLast DoneCommentsDepression Wecsihyie57/29/1980 DTaP,Tdap and Td Vaccines (1 - Tdap)1987Zoster (Shingles) Vaccine (2 of 2) Pap Smear//OVID-19 Vaccine (3 - 2024-26 season)/07/2021, 12/06/2020Influenza Vdqgigd9005/25/2025dult BMI Lktbagipg45/06/2024Tobacco Njzsvhptx14 Medical Devices Not on file Insurance
--- OUTSIDE RECORDS SUMMARY | 2025-07-27 08:58 | XMS_ITS | Encounter Summary ---
Author Organization [facility] Address [address] [facility] [place] [address] Care Team Providers Care [employer] Truck Driver Name Role Phone Alma Rosa Smith MD Primary Care Provider [phone] Alma Rosa Smith MD Unavailable Sunday, Vidya FREIGHT FORWARDER Unavailable [phone] Sunday, Vidya FREIGHT FORWARDER Unavailable [phone] Coco Paula RN Unavailable [phone] Lulú Pringle FREIGHT FORWARDER Unavailable Michelle Cuenca Unavailable Encounter Details DateTypeDepartmentCare Team (Latest Contact Info)Ycvnsivxbli63/12/2023Clinisync Result Encounter [facility] External Department Unsolicited Julia Chen, JASMINE [address] [facility] [address] [place] [address] Social History Tobacco UseTypesPacks/DayYears UsedDateSmoking Tobacco: Every [...] and heating?Not very hard04/03/2024HQ-2AnswerDate RecordedPatient Health Questionnaire-2 Pzunn167Fin[facility] - Occupational Stress QuestionnaireAnswerDate RecordedDo you feel stress - tense, restless, nervous, or anxious, or unable to sleep at night because your mind is troubled all the time - these days?Only a vnhiqb3404/03/2024Hunger Vital SignAnswerDate RecordedWithin the past 12 months, [...] or from getting things needed for daily living?No04/03/2024CommentsUnknownSex and Gender InformationValueDate RecordedSex Assigned at BirthNot on fileLegal SexFemale 12/06/2022 6:41 PM EDTGender IdentityNot on fileSexual OrientationNot on file documented as of this encounter Functional Status * AUDIT-C ScoreAnswerDate of IcmihzjlmyYinkjl201/11/2024 3:51 PM Vidya Bethea LPN * QuestionAnswerDate of AssessmentAuthorQ1: How often do you have a drink containing alcohol?Never04/03/2024 3:51 PM Vidya Bethea LPNQ2: How many drinks containing alcohol do you have on a typical day when you are drinking? Patient does not drink04/03/2024 3:51 PM Vidya Bethea LPNQ3: How often do you have six or more drinks on one occasion?Never04/03/2024 3:51 PM Vidya Bethea LPN * Over the past 2 weeks, how often have you been bothered by any of the following problems?QuestionAnswerDate of AssessmentAuthorLittle interest or pleasure in doing thingsSeveral days04/29/2025 9:22 AM Eliseo ADLEReling down, depressed, or hopelessSeveral days04/29/2025 9:22 AM MANJEET ADLER Patient Health Questionnaire-2 Rucsp963 9:22 AM MANJEET ADLER * QuestionAnswerDate of [...] 11:00 AM Nu Walker LPNPatient Health Questionnaire-9 Mjjyk65211/05/2023 11:00 AM Nu Walker LPN * If you checked off any problems on this questionnaire so far,QuestionAnswer Date of AssessmentAuthorHow difficult have these problems made it for you to do your work, take care of things at home, or get along with other people?Very hzqxouytn76/06/2025 9:22 AM MANJEET ADLER documented as of this encounter Plan of Treatment DateTypeDepartmentCare Team (Latest Contact Info)Qiitaazsnfr61/26/2025 2:00 PM ESTProcedure Visit [facility] [place] PADILLA [address] [facility] [place] [address] Lesa Orta PA [address] [facility] [place] [address] documented as of this encounter Procedures Procedure NamePriorityDate/TimeAssociated DiagnosisCommentsXR CHEST 2V111/05/2022 11:12 AM EST documented in this encounter Results * XR CHEST 2V (09/04/2023 11:12 AM EST)Anatomical RegionLateralityModalityOther Specimen (Source)Anatomical Location / LateralityCollection Method / Volume Collection TimeReceived Time09/04/2023 11:12 AM EST Narrative 09/04/2023 11:14 AM EST [facility] ?[address] ? [place] [address] ?XRay Report ? Signed ? Patient: KEITH BAUM ?MR#: [id number] ?? : 1970 ?Acct:[id number] ?? Age/Sex: 53 / F ?ADM Date: 09/04/23 ?? Loc: RAD ? Attending Dr: JULIA CHEN ? Ordering Physician: JULIA CHEN ?? Date of Service: 09/04/23 ?? Procedure(s): XR chest 2V ?? Accession Number(s): [id number] ? cc: ALMA ROSA SMITH ; JULIA CHEN ? [facility] ? [address] ? [place] [address] ? Patient Name: ?? KEITH BAUM ? MRN: [id number]:[id number] ? date: 1970 ?Sex: F ?? Assigned Patient Location: RAD ?? Current Patient Location: RAD ?? Accession/Order Number: [id number] ?? Exam Date: 09/04/2023 ??09:57 ?Report Date: 09/04/2023 ??11:12 ? At the request of: ?? JULIA CHEN ? Procedure: ??XR chest 2V ? EXAM: XR chest 2V ? HISTORY: Acute Cough R05.1 ? COMPARISON: 06/05/2023 ? TECHNIQUE: PA and lateral views of the chest. ? FINDINGS: ?? The cardiomediastinal silhouette is normal. ? No focal consolidation is identified. ?? There is no pneumothorax. ?? No pleural effusion is noted. ? The osseous structures are intact. ? XR/XR chest 2V ?? IMPRESSION: ?? No acute cardiopulmonary process. ? Electronically authenticated by: SCOTTY ??LE ?? Date: 09/04/2023 ??11:12 ? Dictated By: ?Scotty Razo M.D. ? Signed By: ?09/04/23 1114 ? DD/ 1112 ? TD/TT: ? Communications Advisor: Procedure Note Radiology, Radiologist, - 11/28/2023 [place] [address] XRay Report Signed Patient: KEITH BAUM LMR#: [id number] : 1970Acct:[id number] Age/Sex: 53 / FADM Date: 09/04/23 Loc: RAD Attending Dr: JULIA CHEN Ordering Physician: JULIA CHEN Date of Service: 09/04/23 Procedure(s): XR chest 2V Accession Number(s): [id number] cc: ALMA ROSA SMITH ; JULIA CHEN The [place] [id number] Patient Name: KEITH BAUM MRN: [id number] date: 1970 Sex: F Assigned Patient Location: [facility] Current Patient Location: [facility] Accession/Order Number: [id number] Exam Date: 09/04/2023 09:57 Report Date: 09/04/2023 11:12 At the request of: JULIA CHEN Procedure: XR chest 2V EXAM: XR chest 2V HISTORY: Acute Cough R05.1 COMPARISON: 06/05/2023 TECHNIQUE: PA and lateral views of the chest. FINDINGS: The cardiomediastinal silhouette is normal. No focal consolidation is identified. There is no pneumothorax. No pleural effusion is noted. The osseous structures are intact. XR/XR chest 2V IMPRESSION: No acute cardiopulmonary process. Electronically authenticated by: SCOTTY RAZO Date: 09/04/2023 11:12 Dictated By: Scotty Razo M.D. Signed By:09/04/23 1114 DD/ 111 TD/TT: Communications Advisor: Authorizing ProviderResult TypeResult StatusKyleleigha Caldwell Hemmer [facility] Final Result documented in this encounter Visit Diagnoses Not on filedocumented in this encounter Additional Health Concerns AssessmentNoted TimePHQ-9 Depression Total Score: 14004/16/2023 8:00 AM EDT documented as of this encounter Care Teams Team MemberRelationshipSpecialtyStart DateEnd Date Alma Rosa Smith MD [address] [place] [address] PCP - GeneralFamily Medicine04/16/23 Alma Rosa Smith MD [address] [place] [address] PCP - ACO Reach09/23/23SundayVidya LPN [address] [place] [address] Licensed Practical NurseFamily MedicineSundayVidya LPN [address] [place] [address] Licensed Practical NurseFamily Medicine Coco Paula, ASHLEY [address] [place] [address] Licensed Practical NurseFamily Medicine Lulú Pringle LPN [address] [place] [address] Michelle Cuenca PA [address] [facility] [address] [place] [address] Physician AssistantNeurology12/17/24documented as of this encounter
--- OUTSIDE RECORDS SUMMARY | 2025-07-27 08:58 | XMS_ITS | Clinical Summary ---
Author Organization [facility] Address [address] [place], [place] [address] Care Team Providers Care Solutions Analyst Name Role Phone Alma Rosa Lozada MD Primary Care Provider [phone] Horacio Camara MD Unavailable [phone] Allergies Active AllergyReactionsCriticalityNoted DateCommentsMoxifloxacin HclUnknown 11/22/2015Nitrofurantoin Monohyd/M-IlkoaJjgicoh77/29/2015MorphineUnknown 11/22/20151744UtyfnxbamflmPmffzxn46/29/3200HxqmhmloskyvprAinljdm07/29/2016 Corticosteroids (Glucocorticoids)Bjjgkmf0011/22/20158525BpshblxatqsaLkjgyhg26/29/2016 Medications MedicationSigDispense QuantityRefillsLast FilledStart DateEnd DateStatus docusate sodium (COLACE) 100 mg capsule Take 100 mg by mouth twice daily as needed.Active levothyroxine (SYNTHROID) 75 mcg tablet Take 75 mcg by mouth daily before breakfast.Active ondansetron (ZOFRAN) 4 mg tablet Take 4 mg by mouth every 12 hours as needed.Active oxyCODONE-acetaminophen (PERCOCET) 7.5-325 mg tablet Take 1 tablet by mouth twice daily as needed.Active oxymorphone 20 mg ER tab Take 20 mg by mouth every 12 hours as needed.Active potassium chloride ER (K-DUR, KLOR-CON) 20 mEq tablet Take 20 mEq by mouth once daily.Active ipratropium-albuterol (COMBIVENT) 18-103 mcg/actuation inhaler Inhale 2 Puffs as instructed every 4 hours as needed.Active clonazePAM (KLONOPIN) 1 mg tablet Take 1 mg by mouth three times daily as needed.Active omeprazole (PRILOSEC) 20 mg capsule Take 20 mg by mouth twice daily.Active escitalopram oxalate (LEXAPRO) 10 mg tablet Take 10 mg by mouth once daily.Active meclizine (ANTIVERT) 25 mg tab Take 25 mg by mouth three times daily.Active Active Problems ProblemNoted DateDiagnosed DateModerate episode of recurrent major depressive lxeplufm84/29/7230Haqrkoyqf68/29/2016Normal coronary /29/2016Non morbid obesity due to excess /29/2016Antidepressants causing adverse effect in therapeutic use11/22/2015 Family History Medical HistoryRelationCommentsblood disorder [Other]FatherRelationStatus CommentsFatherDeceasedMotherAlive Social History Tobacco UseTypesPacks/DayYears UsedDateSmoking Tobacco: Every DayCigarettes0.515 Smokeless Tobacco: NeverAlcohol UseStandard Drinks/WeekCommentsNo0 (1 standard drink = 0.6 oz pure alcohol)CommentsUnknownSex and Gender Information ValueDate RecordedSex Assigned at BirthNot on fileLegal VrnUdipkh59/02/2012 7:29 AM ESTGender IdentityNot on fileSexual OrientationNot on fileOccupationIndustry Job Start DateJob End DatedisabilityNot on fileNot on fileNot on file Last Filed Vital Signs Vital SignReadingTime TakenCommentsBlood Svjtmpze084/8311/22/2015 10:16 AM EST large qphmOohlz4861/29/2016 10:16 AM ESTTemperature--Respiratory Rate16 11/22/2015 10:16 AM ESTOxygen Ftgfflycsx45%11/22/2015 10:16 AM ESTInhaled Oxygen Concentration--Lifonh842.6 kg (268 lb)11/22/2015 10:16 AM MZFAzadkg488.6 cm (5' 6 )11/22/2015 10:16 AM ESTBody Mass Index43.26011/22/2015 10:16 AM EST Plan of Treatment Health MaintenanceDue DateLast DoneCommentsAnxiety Rwtovkmco48/29/1986Depression Iiynfkprp45/29/1986HIV Ahhltpnur64/29/1986Hepatitis C Sfcbghpbb28/29/1986 DTaP,Tdap,Td Vaccine (1 - Tdap)1987Hepatitis B Vaccine (1 of 3 - 19+ 3- dose series)1987Cervical Cancer Bbaxpaoie22/29/1989Mammogram Screening 2008CT Zzucoopeysrd13/29/2013Cologuard (FIT-DNA)2013Colonoscopy 2013Colorectal Cancer Omyvegkln53/29/2013Diabetes Zqjezaqdc80/29/2013Fecal Occult Blood2013Lipid Hotbsszlo48/29/7167Iavmaazlnddbc93/29/2013 Pneumococcal Vaccine: 50+ (1 of 1 - PCV)2018Shingrix Vaccine (1 of 2) 2018Covid-19 Vaccine (1 - 2024- season)2025Influenza Vaccine (#1) 2025 Insurance Care Teams Team MemberRelationshipSpecialtyStart DateEnd Date Alma Rosa Lozada MD [address] [facility] [address] [place] [address] PCP - GeneralCardiology02/01/05 Horacio Camara MD [address] [facility] [address] [place] [address] Primary Staff PhysicianCardiology12/10/18
--- OUTSIDE RECORDS SUMMARY | 2025-07-27 08:58 | XMS_ITS | Encounter Summary ---
Author Organization [facility] Address [address] [facility] [place] [place] [address] Care Team Providers Care Plastics Fabricator Name Role Phone Alma Rosa Smith MD Primary Care Provider [phone] Alma Rosa Smith MD Unavailable Sunday, Vidya NEWMANN Unavailable [phone] Coco Paula RN Unavailable [phone] Lulú Pringle CARPET OR RUG LAYER HELPER Unavailable Fernando Lopez Unavailable Encounter Details DateTypeDepartmentCare Team (Latest Contact Info)Zyznmwglflh58/21/2024Clinisync Result Encounter [facility] External Department Unsolicited Provider, Generic External Data Social History Tobacco UseTypesPacks/DayYears UsedDateSmoking Tobacco: FormerCigarettes Smokeless Tobacco: Never Comments:5 or less cigs/day Alcohol UseStandard Drinks/WeekCommentsNot Currently0 (1 standard drink = 0.6 oz pure alcohol)B1300 Health LiteracyAnswerDate RecordedHow often do you need to have someone help you when you read instructions, pamphlets, or other written material from your doctor or pharmacy?Never04/03/2024UDIT-CAnswerDate Recorded Q1: How often do you have [...] and heating?Not very hard04/03/2024HQ-2AnswerDate RecordedPatient Health Questionnaire-2 Tsdle391[facility] [place] [facility] - Occupational Stress QuestionnaireAnswerDate RecordedDo you feel stress - tense, restless, nervous, or anxious, or unable to sleep at night because your mind is troubled all the time - these days?Only a fcbhfu5604/03/2024Hunger Vital SignAnswerDate RecordedWithin the past 12 months, [...] ValueDate RecordedSex Assigned at BirthNot on fileLegal FlwRzwtaf57/15/2023 6:41 PM EDTGender IdentityNot on fileSexual OrientationNot on filedocumented as of this encounter Functional Status * Over the past 2 weeks, how often have you been bothered by any of the following problems?QuestionAnswerDate of AssessmentAuthorLittle interest or pleasure in doing thingsSeveral days04/29/2025 9:22 AM Eliseo ADLEReling down, depressed, or hopelessSeveral days04/29/2025 9:22 AM MANJEET ADLER Patient Health Questionnaire-2 Invxq763 9:22 AM MANJEET ADLER * QuestionAnswerDate of [...] 11:00 AM Nu Walker LPNPatient Health Questionnaire-9 Pnnyf39111/05/2023 11:00 AM Nu Walker LPN * If you checked off any problems on this questionnaire so far,QuestionAnswer Date of AssessmentAuthorHow difficult have these problems made it for you to do your work, take care of things at home, or get along with other people?Very ralrknohs63/06/2025 9:22 AM MANJEET ADLER documented as of this encounter Plan of Treatment DateTypeDepartmentCare Team (Latest Contact Info)Lucetbrunas25/26/2025 2:00 PM ESTProcedure Visit [facility] Freddie PADILLA [address] [facility] [place] [phone] Lesa Orta PA [address] [facility] [address] [place], [place] [id number] documented as of this encounter Procedures Procedure NamePriorityDate/TimeAssociated DiagnosisCommentsMR CERVICAL SPINE WO EHFGXHYE66/21/2024 11:52 AM EST documented in this encounter Results * MR cervical spine wo contrast (08/14/2024 11:52 AM EST)Anatomical Region LateralityModalitySpine, C-spineMagnetic ResonanceSpecimen (Source)Anatomical Location / LateralityCollection Method / VolumeCollection TimeReceived Time 08/14/2024 11:52 AM EST Narrative 08/14/2024 11:55 AM EST [facility] ?[address] ? [place] [address] ? Magnetic Resonance Report ? Signed ? Patient: BAUM,KEITH L ?MR#: [id number] ?? : 1970 ?Acct:[id number] ?? Age/Sex: 54 / F ?ADM Date: 08/12/24 ?? Loc: MRI ? Attending Dr: Fernando FERRARO ? Ordering Physician: Fernando Lopez ?? Date of Service: 08/12/24 ?? Procedure(s): MR cervical spine wo con ?? Accession Number(s): [id number] ? cc: ALMA ROSA SMITH ; Fernando Lopez ? [facility] ? [address] ? [place] [address] ? Patient Name: ?? KEITH BAUM ? MRN: [facility]:[id number] ? date: 1970 ?Sex: F ?? Assigned Patient Location: MRI ?? Current Patient Location: MRI ?? Accession/Order Number: [id number] ?? Exam Date: 08/12/2024 ??14:42 ?Report Date: 08/14/2024 ??11:52 ? At the request of: ?? FERNANDO ??JOHN ? Procedure: ??MR cervical spine wo con ? EXAM: MR cervical spine wo con ? HISTORY: Hyperreflexia, left arm pain, Neck pain. ? COMPARISON: None. ? TECHNIQUE: Multiplanar and multisequence imaging of the cervical spine was ?? performed without contrast. ? FINDINGS: There is straightening of the cervical lordosis. Motion artifact ?? mildly degrades evaluation. There is no fracture or spondylolisthesis. The ?? cervical vertebral heights are maintained. There is disc desiccation ?? throughout ?? the cervical spine. ? No acute abnormality is identified in the posterior fossa or at the ?? craniocervical junction. No convincing cord signal abnormalities evident given ? motion artifact degrading evaluation on this study. ? C2-C3: There is mild to moderate left and mild right-sided facet arthropathy. ?? There is no focal disc herniation. No central or foraminal stenosis is ?? evident. ? C3-C4: There is a mild disc bulge and mild to moderate facet arthropathy ?? without central or foraminal stenosis. ? C4-C5: There is a minimal disc bulge and uncovertebral spurring with mild to ?? moderate facet arthropathy. There is no central or foraminal stenosis. ? C5-C6: There is a small central disc protrusion and mild uncovertebral ?? spurring ?? with mild to moderate facet arthropathy. There is no central or foraminal ?? stenosis. ? C6-C7: No focal disc herniation is evident. There is no central or foraminal ?? stenosis. ? MR/MR cervical spine wo con ?? IMPRESSION: ? 1. Discogenic change and mild to moderate facet arthropathy in the cervical ?? spine as described above. No central or foraminal stenosis is evident. ? 2. No fracture or spondylolysis ? Electronically authenticated by: MITCHELL ??CAIO ?? Date: 08/14/2024 ??11:52 ? Dictated By: ?Mitchell Kearney M.D. ? Signed By: ?08/14/24 1155 ? DD/ 1152 ? TD/TT: ? Silverware Etcher: Procedure Note Radiology, Radiologist, MD - 08/14/[address] [address] Magnetic Resonance Report Signed Patient: KEITH BAUM LMR#: [id number] : 1970Acct:[id number] Age/Sex: 54 / FADM Date: 08/12/24 Loc: MRI Attending Dr: Fernando FERRARO Ordering Physician: Fernando Lopez Date of Service: 08/12/24 Procedure(s): MR cervical spine wo con Accession Number(s): [id number] cc: ALMA ROSA SMITH ; Fernando Lopez The [address] [address] Patient Name: KEITH BAUM MRN: [facility]:[id number] date: 1970 Sex: F Assigned Patient Location: MRI Current Patient Location: MRI Accession/Order Number: [id number] Exam Date: 08/12/2024 14:42 Report Date: 08/14/2024 11:52 At the request of: FERNANDO LOPEZ Procedure: MR cervical spine wo con EXAM: MR cervical spine wo con HISTORY: Hyperreflexia, left arm pain, Neck pain. COMPARISON: None. TECHNIQUE: Multiplanar and multisequence imaging of the cervical spine was performed without contrast. FINDINGS: There is straightening of the cervical lordosis. Motion artifact mildly degrades evaluation. There is no fracture or spondylolisthesis. The cervical vertebral heights are maintained. There is disc desiccation throughout the cervical spine. No acute abnormality is identified in the posterior fossa or at the craniocervical junction. No convincing cord signal abnormalities evidentgiven motion artifact degrading evaluation on this study. C2-C3: There is mild to moderate left and mild right-sided facetarthropathy. There is no focal disc herniation. No central or foraminal stenosis is evident. C3-C4: There is a mild disc bulge and mild to moderate facet arthropathy without central or foraminal stenosis. C4-C5: There is a minimal disc bulge and uncovertebral spurring with mildto moderate facet arthropathy. There is no central or foraminal stenosis. C5-C6: There is a small central disc protrusion and mild uncovertebral spurring with mild to moderate facet arthropathy. There is no central or foraminal stenosis. C6-C7: No focal disc herniation is evident. There is no central orforaminal stenosis. MR/MR cervical spine wo con IMPRESSION: 1. Discogenic change and mild to moderate facet arthropathy in thecervical spine as described above. No central or foraminal stenosis is evident. 2. No fracture or spondylolysis Electronically authenticated by: MITCHELL KEARNEY Date: 08/14/2024 11:52 Dictated By: Mitchell Kearney M.D. Signed By:08/14/24 1155 DD/ 1152 TD/TT: Silverware Etcher: Authorizing ProviderResult TypeResult StatusGeneric External Data ProviderIMG MRI PROCEDURESFinal Result documented in this encounter Visit Diagnoses Not on filedocumented in this encounter Additional Health Concerns AssessmentNoted TimePHQ-9 Depression Total Score: 8:00 AM EDT documented as of this encounter Care Teams Team MemberRelationshipSpecialtyStart DateEnd Date Alma Rosa Smith MD [address] [facility] [address] [place] [address] PCP - GeneralFamily Medicine04/16/23 Alma Rosa Smith MD [address] [facility] [address] [place] [address] PCP - ACO Reach09/23/23SundayVidya LPN [address] [facility] [[email or web address] [address] [place] [address] Licensed Practical NurseFamily Medicine Coco Paula, ASHLEY [address] [place] [address] Licensed Practical NurseFamily Medicine Lulú Pringle LPN [address] [facility] [address] [place] [address] Fernando Lopez PA [address] [facility] [address] [place] [address] Physician AssistantNeurology12/17/24documented as of this encounter
--- OUTSIDE RECORDS SUMMARY | 2025-07-27 08:58 | XMS_ITS | Clinical Summary ---
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 screened with both Cologuard and colonoscopy. (Jj Wright al, N Engl J Med 2014;370(14):8302-9732) The normal value (reference range) for this assay is negative. COLOGUARD RE-SCREENING RECOMMENDATION: Periodic colorectal cancer screening is an important part ofpreventive healthcare for asymptomatic individuals at average risk for colorectal cancer. ??Following a negative Cologuard result, the [place] [employer] Society and U.S. Multi-Society Task Force screening guidelines recommend a Cologuard re-screening interval of 3 years. References: [place] [employer] Guideline for Colorectal Cancer Screening: https://www.cancer.or g/cancer/dfuza-blcadb-hjlueo/rowdouhtr-lcefbqvxt-dapxbhg/acs-recommendations.htm bakari; Momo VELASQUEZ, Leisa YAO, Marlon CarterK, Colorectal Cancer Screening: Recommendations for Physicians and Patients from the U.S. Multi-Society Task Force on Colorectal Cancer Screening , Am J Gastroenterology 2017; 112:0086-6941. TEST DESCRIPTION: Composite algorithmic analysis of stool DNA-biomarkers with hemoglobin immunoassay. ?? Quantitative values of individual biomarkers are not reportable and are not associated with individual biomarker result reference ranges. Cologuard is intended for colorectal cancer screening ofadults of either sex, 45 years or older, who are at average-risk for colorectal cancer (CRC). Cologuard has been approved for use by the U.S. FDA. The performance of Cologuard was established in a cross sectional study of average-risk adults aged 50-84. Cologuard performance in patients ages 45 to 49 years was estimated by sub-group analysis of near-age groups. Colonoscopies performed for a positive result may find as the most clinically significant lesion: colorectal cancer [4.0%], advanced adenoma (including sessile serrated polyps greater than or equal to 1cm diameter) [20%] or non- advanced adenoma [31%]; or no colorectal neoplasia [45%]. These estimates are derived from a prospective cross-sectional screening study of 10,000 individuals at average risk for colorectal cancer who were screened with both Cologuard and colonoscopy. (Jj Cardoso, N Engl J Med 2014;370(14):7492-1448.) Cologuard may produce a false negative or false positive result (no colorectal cancer or precancerous polyp present at colonoscopy follow up). A negative Cologuard test result does not guarantee the absence of CRC or advanced adenoma (pre-cancer). The current Cologuard screening interval is every 3 years. ([place] [employer] and U.S. Multi-Society Task Force). Cologuard performance data in a 10,000 patient pivotal study using colonoscopy as the reference method can be accessed at the following location: www.Unica.itBit/results. Additional description of the Cologuard test process, warnings and precautions can be found at www.cologuard.com. Specimen (Source)Anatomical Location / LateralityCollection Method / Volume Collection TimeReceived TimeStool specimen (specimen)Rectal contents / Unknown 05/11/2023 8:30 AM EDT05/11/2023 9:05 PM EDT Narrative Authorizing ProviderResult TypeResult StatusJulia Chen [facility] ORDERABLESFinal ResultPerforming OrganizationAddressCity/State/ZIP CodePhone Number .[facility] (CLIA #:[id number]) [address] [place] [address], [place] [phone] [facility] (CLIA #:[id number]) [address] [place] [address] * THINPREP AND HPV (11/22/2020 12:00 PM EST)ComponentValueRef RangeTest Method Analysis TimePerformed AtPathologist SignaturePAP RESULTSNEgativeECW NONXML LABSSSINegativeECW NONXML LABSSpecimen (Source)Anatomical Location / LateralityCollection Method / VolumeCollection TimeReceived Time11/22/2020 12:00 PM EST Narrative Authorizing ProviderResult TypeResult StatusAlma Rosa Smith MDECW LABSFinal Result Performing OrganizationAddressCity/State/ZIP CodePhone Number [facility]XML [facility] * Pap Smear (11/22/2020 12:00 AM EST)Specimen (Source)Anatomical Location / LateralityCollection Method / VolumeCollection TimeReceived TimeSwabCervical swab / Unknown Narrative Authorizing ProviderResult TypeResult StatusAlma Rosa Smith MDLAB CYTOLOGY ORDERABLESFinal ResultPerforming OrganizationAddressCity/State/ZIP CodePhone Number EXTERNAL LAB from Last 3 Months or Most Recently Relevant to Health Maintenance Insurance Care Teams Team MemberRelationshipSpecialtyStart DateEnd Alma Rosa Smith MD [address] [facility] [address] [place] [address] PCP - GeneralFamily Medicine04/16/23 Alma Rosa Smith MD [address] [facility] [address] [place] [address] PCP - ACO Reach09/23/23 Michelle Cuenca PA [address] [facility] [address] [place] [address] Physician AssistantNeurology12/17/24
--- OUTSIDE RECORDS SUMMARY | 2025-07-27 08:58 | XMS_ITS | Encounter Summary ---
Author Organization [facility] Address [address] [place] [address] Care Team Providers Care Cna Ltc Name Role Phone Alma Rosa Lozada MD Primary Care Provider [phone] Alma Rosa Lozada MD Unavailable Michelle Cuenca Unavailable Encounter Details DateTypeDepartmentCare Team (Latest Contact Info)Xgqbbxatnvk02/21/2025amboo flowsheet RAMOS PADILLA [address] [place] [address] Lesa Orta PA [address] [facility] [address] [place] [id number] Social History Tobacco UseTypesPacks/DayYears UsedDateSmoking Tobacco: Every [...] and heating?Not very hard04/03/2024HQ-2AnswerDate RecordedPatient Health Questionnaire-2 Dfgcd407Finmckay-[facility] [place] of Occupational Health - Occupational Stress QuestionnaireAnswerDate RecordedDo you feel stress - tense, restless, nervous, or anxious, or unable to sleep at night because your mind is troubled all the time - these days?Only a isggxb1004/03/2024Hunger Vital SignAnswerDate RecordedWithin the past 12 months, [...] ValueDate RecordedSex Assigned at BirthNot on fileLegal CyaJlaofa82/15/2023 6:41 PM EDTGender IdentityNot on fileSexual OrientationNot on filedocumented as of this encounter Plan of Treatment DateTypeDepartmentCare Team (Latest Contact Info)Daoubixbqiv08/26/2025 2:00 PM ESTProcedure Visit [facility] PADILLA [address] [place] [phone] Lesa Orta PA [address] [facility] [place] [address] documented as of this encounter Visit Diagnoses Not on filedocumented in this encounter Additional Health Concerns AssessmentNoted TimePHQ-9 Depression Total Score: 11:00 AM EST documented as of this encounter Care Teams Team MemberRelationshipSpecialtyStart DateEnd Date Alma Rosa Lozada MD [address] [place] [address] PCP - GeneralFamily Medicine04/16/23 Alma Rosa Lozada MD [address] [place] [address] PCP - ACO Reach09/23/23 Michelle Cuenca PA [address] [place] [address] Physician AssistantNeurology12/17/24documented as of this encounter
--- NOTE | 2025-07-27 09:01 | MM_ITS ---
Patient Name: KEITH WASHINGTON MR#: [id number] : 1970 Exam Date: 07/27/2025 Ordering Doctor: JASMINE RODRIGUEZ . RADIOLOGY REPORT PROCEDURE: MM TOMOSYNTHESIS SCREENING BI COMPARISON: MM TOMOSYNTHESIS SCREENING BI, 07/25/2023. MG MAMM SCREEN 3D PATRICIA CAD, 09/14/2021. MG MAMM SCREEN PATRICIA W CAD, 04/08/2019. INDICATIONS: Screening Calculator Name NCI Breast Cancer Risk Assessment Tool 5 Year Breast Cancer Risk 1.00% Lifetime Breast Cancer Risk 6.50% Personal Breast Cancer No Personal Ovarian Cancer No Treatments None Family Cancers None LOCATION: [facility] BREAST COMPOSITION: There are scattered areas of fibroglandular density. FINDINGS: DIAGNOSTIC CATEGORY 1--NEGATIVE. RIGHT BREAST: No significant suspicious finding. LEFT BREAST: No significant suspicious finding. RECOMMENDATIONS: ROUTINE MAMMOGRAM AND CLINICAL EVALUATION IN 12 MONTHS. Dictated by: lAeksandr Lynch MD on 07/27/2025 at 14:49 Approved by: Aleksandr Lynch MD on 07/27/2025 at 14:50
--- NOTE | 2025-07-27 09:02 | US_ITS ---
The [address] [address] Patient Name: KEITH WASHINGTON MRN: [id number] date: 1970 Sex: F Assigned Patient Location: [place] Current Patient Location: Accession/Order Number: [id number] Exam Date: 07/27/2025 09:05 Report Date: 07/27/2025 10:08 At the request of: IGLESIA RODRIGUEZ Procedure: US pelvis w/ transvaginal ULTRASOUND PELVIS WITH TRANSVAGINAL COMPARISON: CT 03/24/2024 CLINICAL DATA: Postmenopausal patient with pelvic cramping and minimal spotting Real-time ultrasound evaluation the pelvis was performed utilizing a transabdominal and transvaginal approach. TRANSABDOMINAL: Estimated uterine size is approximately 6.4 x 3.2 x 4.1 cm. No focal myometrial abnormalities are seen. The endometrial lining is estimated at 4 - 5 mm. Both ovaries are identified. This is documentation of ovarian blood flow. TRANSVAGINAL: Transvaginal imaging was performed to better evaluate the uterus and adnexa. By this approach, no focal myometrial abnormalities are seen. The endometrial lining is estimated at 2 - 3 mm. The ovaries are again identified. The right measures 2.9 x 2.4 x 2.0 cm. The left ovary measures 3.6 x 1.9 x 2.6 cm. No adnexal cysts are present. No free fluid is seen. US/US pelvis w/ transvaginal IMPRESSION: WITHIN NORMAL LIMITS. Impression dictated by: Julia Bautista M.D. 07/27/2025 10:08 AM Dictation Location: [place] [address] Electronically authenticated by: [id number] Y Date: 07/27/2025 10:08
== END 2025-07-27 08:55 | disposition home or self-care (01) ==
LOC: US 08:54
PROVIDERS: Visit Provider Physician Assistant
DX: Z12.31 Encounter for screening mammogram for malignant neoplasm of breast (principal); N95.0 Postmenopausal bleeding; R10.30 Lower abdominal pain, unspecified
CPT/HCPCS: 76830; 76856; 77063; 77067

== ENCOUNTER 2025-08-19 15:24 | Outpatient (REF) | payer MEDICARE, MEDICAID, SELFPAY ==
--- OUTSIDE RECORDS SUMMARY | 2022-06-06 06:30 | XMS_ITS | Continuity of Care Document ---
Author Organization [facility] Address [address] [place] [address] Phone Care Team Providers Care Business Development Agent Name Role Phone Ronald Morris DDS Unavailable [...] Procedure Date Nutrit Couns For Control Of [place] Dis May Limited Oral Eval Advance Directives Directive Yes / No Effective Date File Name No Information Encounters Encounter Description Practice Location Reason(s) For Visit Diagnoses Date Provider Providers Copied on Encounter [facility], [address] [place], [place], [id number], [place] tel:[phone] Dental Clinic cons (chief complaint) Encounter for screening for dental disorders Arturo Cardenas. [address] [place], [place], [id number], [place]. tel:[phone] Family History Family Member Type Diagnosis Age At Onset No Information Payers Payer name Insurance type Covered libertarian ID Bill sen(s) [employer] Medicaid Primary [facility] [id number] Social History Type Description Quantity Date Captured [...]
--- OUTSIDE RECORDS SUMMARY | 2025-08-19 14:00 | XMS_ITS | Encounter Summary ---
Author Organization [facility] Address [address] [place] [address] Care Team Providers Care Polytechnic Registrar Name Role Phone Alma Rosa Lozada MD Primary Care Provider [phone] Alma Rosa Lozada MD Unavailable Michelle Cuenca Unavailable Reason for Visit * ReasonCommentsWell Women Visit Encounter Details DateTypeDepartmentCare Team (Latest Contact Info)Ubjfesxunmr73/26/2025 2:00 PM ESTProcedure Visit [facility] [address] [facility] [place] [address] Lesa Orta PA [address] [facility] [address] [place], [facility]11 Well woman exam with routine gynecological exam; Encounter for screening mammogram for malignant neoplasm of breast; Postmenopausal state Social History Tobacco UseTypesPacks/DayYears UsedDateSmoking Tobacco: Every [...] and heating?Not very hard04/03/2024HQ-2AnswerDate RecordedPatient Health Questionnaire-2 Ycqhj787Finheber [facility] [place] of Occupational Health - Occupational Stress QuestionnaireAnswerDate RecordedDo you feel stress - tense, restless, nervous, or anxious, or unable to sleep at night because your mind is troubled all the time - these days?Only a hfglio7004/03/2024Hunger Vital SignAnswerDate RecordedWithin the past 12 months, [...] ValueDate RecordedSex Assigned at BirthNot on fileLegal HywZpayyr45/15/2023 6:41 PM EDTGender IdentityNot on fileSexual OrientationNot on filedocumented as of this encounter Last Filed Vital Signs Vital SignReadingTime TakenCommentsBlood Xdgotrtl565/8208/19/2025 2:07 PM EST Pulse--Temperature--Respiratory Rate--Oxygen Saturation--Inhaled Oxygen Concentration--Hrcsrr434 kg (231 lb 8 oz)08/19/2025 2:07 PM ESTHeight--Body Mass Index36.0408 9:34 AM EDTdocumented in this encounter Progress Notes * JASMINE De Guzman - 08/19/2025 2:00 PM EST Reason for Appointment: Patient ID: Génesis Baum is a 55 y.o. female who presents for Well Women Visit Patient presents today for Annual Exam. 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 Other rosacea 04/15/2023 Pancreas, cyst, true (HCC) 04/15/2023 Low back pain 02/28/2008 Chronic pansinusitis 03/21/2019 Moderate persistent asthma without complication ([facility]) 04/16/2023 History of gastritis 04/16/2023 Bilateral [...] Date Noted Stage 3a chronic kidney disease ([facility]) 03/31/2023 Acute gastritis 02/28/2008 Anxiety state 02/28/2008 Asthma with exacerbation (HCC) 02/28/2008 Benign neoplasm of skin 09/27/2009 Abdominal muscle pain 02/28/2008 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 Pansinusitis 04/15/2023 Swelling of vagina 04/15/2023 Abnormal vaginal bleeding 07/26/2016 Antidepressants causing adverse effect in therapeutic use 11/22/2015 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 OBJECTIVE Objective: Physical Exam Constitutional: Appearance: Normal appearance. Genitourinary: Right Adnexa: not tender and no mass present. Left Adnexa: not tender and no mass present. No cervical discharge. Breasts: Breasts are soft. Right: Normal. Left: Normal. HENT: Head: Normocephalic. Nose: Nose normal. Mouth/Throat: Mouth: Mucous membranes are moist. Cardiovascular: Rate and Rhythm: Normal rate. Pulmonary: Effort: Pulmonary effort is normal. Abdominal: General: Bowel sounds are normal. Palpations: Abdomen is soft. Musculoskeletal: General: Normal range of motion. Cervical back: Normal range of motion. Neurological: General: No focal deficit present. Mental Status: She is alert. Skin: General: Skin is warm and dry. Psychiatric: Mood and Affect: Mood normal. Vitals and nursing note reviewed. Exam conducted with a motor express clerk present. Vitals: Estimated body mass index is 36.04 kg/m?? as calculated from the following: Height as of 04/29/25: 5' 7.2 . Weight as of this encounter: 231 lb 8 oz. BP: 138/82 No LMP recorded. Patient is premenopausal. Assessment/Plan ICD-10-CM 1. Well woman exam with routine gynecological exam Z01.419 THIN PREP TIS PAP AND HR HPV DNA 2. Encounter for screening mammogram for malignant neoplasm of breast Z12.31 3. Postmenopausal state Z78.0 DEXA bone density Assessment/Plan Annual: Patient presents today for an annual exam. Patient states she is doing well and has no complaints. Pap was obtained without difficulty and patient given Dexa order to have scheduled/obtained. Patienthad Mammogram Previously. Orders Placed This Encounter Procedures DEXA bone density Follow Up: Patient is to return in one year for annual unless needed otherwise. Documented by Glendy Bhagat LPN on behalf of: JASMINE De Guzman documented in this encounter Plan of Treatment NameTypePriorityAssociated DiagnosesOrder ScheduleDEXA bone densityImaging Routine Postmenopausal state Expected: 08/19/2025 (Approximate), Expires: 08/19/2026THIN PREP TIS PAP AND HR HPV DNAPathology and CytologyRoutine Well woman exam with routine gynecological exam Ordered: 08/19/2025documented as of this encounter Visit Diagnoses Diagnosis Well woman exam with routine gynecological exam Routine gynecological examination Encounter for screening mammogram for malignant neoplasm of breast Postmenopausal state Asymptomatic postmenopausal status (age-related) (natural) documented in this encounter Additional Health Concerns AssessmentNoted TimePHQ-9 Depression Total Score: 11:00 AM EST documented as of this encounter Care Teams Team MemberRelationshipSpecialtyStart DateEnd Date Alma Rosa Lozada MD [address] [facility] [address] [place] [address] PCP - GeneralFamily Medicine04/16/23 Alma Rosa Lozada MD [address] [facility] [address] [place] [address] PCP - ACO Reach09/23/23 Michelle Cuenca PA Physician AssistantNeurology12/17/24documented as of this encounter
--- OUTSIDE RECORDS SUMMARY | 2025-08-19 15:27 | XMS_ITS | Encounter Summary ---
Author Organization [facility] Address [address] [place] [address] Care Team Providers Care Precinct Police Sergeant Name Role Phone Alma Rosa Lozada MD Primary Care Provider [phone] Alma Rosa Lozada MD Unavailable Michelle Cuenca Unavailable Encounter Details DateTypeDepartmentCare Team (Latest Contact Info)Cfbocgjaqhh64/26/2025amboo flowsheet RAMOS PADILLA [address] [facility] [phone] Lesa Orta PA [address] [facility] [address] [place] [id number] Social History Tobacco UseTypesPacks/DayYears UsedDateSmoking Tobacco: Every [...] and heating?Not very hard04/03/2024HQ-2AnswerDate RecordedPatient Health Questionnaire-2 Echgn202Find[facility] [place] of Occupational Health - Occupational Stress QuestionnaireAnswerDate RecordedDo you feel stress - tense, restless, nervous, or anxious, or unable to sleep at night because your mind is troubled all the time - these days?Only a mglfns8004/03/2024Hunger Vital SignAnswerDate RecordedWithin the past 12 months, [...] ValueDate RecordedSex Assigned at BirthNot on fileLegal UqhHfjlli93/15/2023 6:41 PM EDTGender IdentityNot on fileSexual OrientationNot on filedocumented as of this encounter Plan of Treatment Not on file documented as of this encounter Visit Diagnoses Not on filedocumented in this encounter Additional Health Concerns AssessmentNoted TimePHQ-9 Depression Total Score: 11:00 AM EST documented as of this encounter Care Teams Team MemberRelationshipSpecialtyStart DateEnd Date Alma Rosa Lozada MD [address] [facility] [address] [place] [address] [facility]/16/23 Alma Rosa Lozada MD [address] [place] [address] PCP - ACO Reach09/23/23 Michelle Cuenca PA Physician AssistantNeurology12/17/24documented as of this encounter
--- OUTSIDE RECORDS SUMMARY | 2025-08-19 15:27 | XMS_ITS | Clinical Summary ---
Author Organization [facility] Address [address] [place], [place] [address] Care Team Providers Care Director Of Manufacturing Operations Name Role Phone Alma Rosa Lozada MD Primary Care Provider [phone] Horacio Camara MD Unavailable [phone] Allergies Active AllergyReactionsCriticalityNoted DateCommentsMoxifloxacin HclUnknown 11/22/2015Nitrofurantoin Monohyd/M-BamjeXfojvvk91/29/2015MorphineUnknown 11/22/20150427LqbtncpragpuCudqddp78/29/0633DvcqbzqwovhtixSitefvl66/29/2016 Corticosteroids (Glucocorticoids)Ssqzwwf1611/22/20155976JfunvhllvwfxZgkfvcj61/29/2016 Medications MedicationSigDispense QuantityRefillsLast FilledStart DateEnd DateStatus docusate [...] DateDiagnosed DateModerate episode of recurrent major depressive psodirpa04/29/6928Wmztjmamt28/29/2016Normal coronary /29/2016Non morbid obesity due to excess psjxgjof60/29/2016Antidepressants causing adverse effect in therapeutic use11/22/2015 Family History Medical HistoryRelationCommentsblood disorder [Other]FatherRelationStatus CommentsFatherDeceasedMotherAlive Social History Tobacco UseTypesPacks/DayYears UsedDateSmoking Tobacco: Every DayCigarettes0.515 Smokeless Tobacco: NeverAlcohol UseStandard Drinks/WeekCommentsNo0 (1 standard drink = 0.6 oz pure alcohol)CommentsUnknownSex and Gender Information ValueDate RecordedSex Assigned at BirthNot on fileLegal TkcSoxstr45/02/2012 7:29 AM ESTGender IdentityNot on fileSexual OrientationNot on fileOccupationIndustry Job Start DateJob End DatedisabilityNot on fileNot on fileNot on file Last Filed Vital Signs Vital SignReadingTime TakenCommentsBlood Cmvmzhnc584/8311/22/2015 10:16 AM EST large lhqkXcejf4066/29/2016 10:16 AM ESTTemperature--Respiratory Rate16 11/22/2015 10:16 AM ESTOxygen Zijzdxmvah53%11/22/2015 10:16 AM ESTInhaled Oxygen Concentration--Jmbdgm704.6 kg (268 lb)11/22/2015 10:16 AM IARRffjdk208.6 cm (5' 6 )11/22/2015 10:16 AM ESTBody Mass Index43.26011/22/2015 10:16 AM EST Plan of Treatment Health MaintenanceDue DateLast DoneCommentsAnxiety Aesigxklx21/29/1986Depression Fjjapwkbz35/29/1986HIV Crkrlhqdn72/29/1986Hepatitis C Avdurjxxo23/29/1986 DTaP,Tdap,Td Vaccine (1 - Tdap)1987Hepatitis B Vaccine (1 of 3 - 19+ 3- dose series)1987Cervical Cancer Xdcolobxp91/29/1989Mammogram Screening 2008CT Bzhpusqbdorz30/29/2013Cologuard (FIT-DNA)2013Colonoscopy 2013Colorectal Cancer Dyfzhbxkc30/29/2013Diabetes Fhbkstxyv68/29/2013Fecal Occult Blood2013Lipid Ltyhcberi50/29/2518Phtjyrziriarj09/29/2013 Pneumococcal Vaccine: 50+ (1 of 1 - PCV)2018Shingrix Vaccine (1 of 2) 2018Covid-19 Vaccine (1 - 2024- season)2025Influenza Vaccine (#1) 2025 Insurance Care Teams Team MemberRelationshipSpecialtyStart DateEnd Date Alma Rosa Lozada MD [address] [facility] 110 [place] [address] PCP - GeneralCardiology02/01/05 Horacio Camara MD [address] [facility] [address] [place] [address] Primary Staff PhysicianCardiology12/10/18
--- OUTSIDE RECORDS SUMMARY | 2025-08-19 15:27 | XMS_ITS | Clinical Summary ---
Author Organization [facility] Address [facility] [address] [place] [address] Care Team Providers Care Back Hoe Machine Operator Name Role Phone Unavailable Primary Care Provider Unavailabl e Allergies Active AllergyReactionsCriticalityNoted DateCommentsAzithromycinRash,Other (See Comments)Low11/22/20151093FicusqpjyjFfhlUnh21/23/2023orticosteroids (Glucocorticoids)Other (See Comments)11/22/2015MorphineOther (See Comments), Wqtrrxek44/29/2016MoxifloxacinRash,Other (See Comments)Low11/22/2015 NitrofurantoinOther (See Comments)11/22/2015Nitrofurantoin Monohyd/M-CrystRash, Other [...] Active Problems ProblemNoted DateDiagnosed DateSerous cystadenoma of ktmeavpv31/10/2024 Family History Medical HistoryRelationNameCommentsCancerMaternal AuntbreastColon cancerMaternal GrandmotherRelationNameStatusCommentsFatherDeceasedMaternal AuntDeceasedMaternal GrandmotherDeceasedMotherAlive Social History Tobacco UseTypesPacks/DayYears UsedDateSmoking Tobacco: Every DayCigarettes Smokeless Tobacco: Never Tobacco Cessation:Ready to Q uit: Not Asked; Counseling Given: Not Answered Alcohol UseStandard Drinks/WeekCommentsNever0 (1 standard drink = 0.6 oz pure alcohol)ChildcareAnswerDate WmmkuwifUekdvwumcWqxxakh14/12/2019EmploymentAnswer Date FobyhiarHidhvtbpuyOctwtcn03/12/2019Hunger ScreeningAnswerDate Recorded Within the past 12 months we worried whether our food would run out before we got money to buy more.Never True06/03/2024Within the past 12 months the food we bought just didn't last and we didn't have money to get more.Never True 06/03/2024CommentsUnknownSex and Gender InformationValueDate RecordedSex Assigned at BirthNot on fileLegal BekRlcgpp45/06/2015 11:44 AM EDTGender IdentityNot on fileSexual OrientationNot on file Last Filed Vital Signs Vital SignReadingTime TakenCommentsBlood Dbadbjxr708/7609 1:34 PM EDT Wognd358906/03/2024 1:34 PM EDTTemperature--Respiratory Rate--Oxygen Saturation-- Inhaled Oxygen Concentration--Vgekdf552.1 kg (231 lb 12.8 oz)06/03/2024 1:34 PM HAUKremid510.6 cm (5' 6 )06/03/2024 1:34 PM EDTBody Mass Index37.4109 1:34 PM EDT Plan of Treatment Health MaintenanceDue DateLast DoneCommentsDepression Gkjbqrbdm14/29/1980 DTaP,Tdap and Td Vaccines (1 - Tdap)1987Zoster (Shingles) Vaccine (2 of 2) Pap Smear//OVID-19 Vaccine (3 - 2024-26 season)/07/2021, 12/06/2020Influenza Foolnhq3305/25/2025dult BMI Hxmahlwkr69/06/2024Tobacco Atuwjtbzf66 [employer] Devices Not on file Insurance
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
--- OUTSIDE RECORDS SUMMARY | 2025-08-19 15:27 | XMS_ITS | Clinical Summary ---
Author Organization [facility] Address [address], [address] [place] [address] Care Team Providers [employer] Name Role Phone Unavailable Primary Care Provider Unavailabl e Social History Tobacco UseTypesPacks/DayYears UsedDateSmoking Tobacco: Never Assessed CommentsUnknownSex and Gender InformationValueDate RecordedSex Assigned at Not on fileLegal GjkJoberf10/18/2019 8:37 AM ESTGender IdentityNot on fileSexual OrientationNot on file Plan of Treatment Not on file Insurance
--- OUTSIDE RECORDS SUMMARY | 2025-08-19 15:31 | XMS_ITS | CCD ---
Author Organization [facility] Care Team Providers Care Scholarship Counselor Name Role Phone GUIDO, DR HUMPHREY Butler Consulting Unavailable SARAH, DR VALENCIA Primary Care Unavailable ALLI, DR VARELA Attending Unavailable ALLI, DR VARELA Admitting Unavailable ALLI, DR AVRELA Consulting Unavailable RAMONE OKEEFE Consulting Unavailable RAMONE [...] Consulting Unavailable ERIK SMITH Primary Care Physician [phone] Dax Block Referring Unavailable Dax Block Attending Unavailable Dax Block Admitting Unavailable Erik Smith MD Primary Care Provider Erik Smith MD Unavailable CELIO BROWN Attending Unavailable ERIK SMITH Referring Unavailable Sunday SWIM COACH, Vidya Unavailable Coco Paula RN Unavailable Unavailable Primary [facility] Nisa RAMIREZ, Coco Unavailable [phone] [place] MIKEY, Lulú Unavailable Unavailable Michelle Nunez Unavailable Erik Smith MD Primary Care Provider [phone] Isak Castillo MD Attending Provider [phone] Will Carson DO Attending Provider [phone] Michelle Nunez Unavailable Baron Wallace DO Attending Provider [place] MIKEY, Lulú Unavailable Michelle Nunez Unavailable Pino JENSEN, Lulú Unavailable Erik Smith MD Primary Care Provider Isak Castillo MD Attending Provider [phone] Mary Shipley APRN Attending Provider Will Carson Admitting Unavailable Will Carson Attending Unavailable Erik Smith Primary Care Unavailable Baron Wallace Admitting Unavailable Baron Wallace Attending Unavailable Erik Smith Primary Care Unavailable Isak Castillo Admitting Unavailab Isak Olivera Attending Unavailab JULIA Leslie Attending Unavailable LESA ORTA Attending Unavailable WILL CARSON Attending Unavailable JAYNE BIANCHI Attending Unavailable JAYNE BIANCHI Attending Unavailable MICHELLE CUENCA Attending Unavailable MADISON VIEIRA Attending Unavailable MICHELLE CUENCA Attending Unavailable WILL CARSON Attending Unavailable WILL CARSON Attending Unavailable JULIA CHEN Attending Unavailable MICHELLE CUENCA Attending Unavailable WILL CARSON Attending Unavailable WILL CARSON Referring Unavailable AMARILIS ALVARENGA Attending Unavailable AMARILIS ALVARENGA Attending Unavailable AMARILIS ALVARENGA Attending Unavailable AMARILIS ALVARENGA Attending Unavailable AMARILIS ALVARENGA Attending Unavailable JAYNE BIANCHI Attending Unavailable Sunday SWIM COACH, Vidya Unavailable Coco Paula RN Unavailable Sunday SWIM COACH, Vidya Unavailable Allergies Allergy ClassificationReported Allergen(s)Allergy TypeDate of OnsetReaction(s) Facility (2 sources)Azithromycin; Translations: [Zithromax]Drug AllergyThe [facility] ([facility] source)CephalexinDrug Bdgnjhn49-03-7933Fjl [facility] Rep[facility] (1 source)CorticosteroidsDrug allergy (disorder)The [facility] Repository (4 sources)Morphine; Translations: [morphine]Drug Zsfjjrr67-06-4435Dpsxnqu ReactionThe [facility] (2 sources)moxifloxacin; Translations: [Avelox]Drug AllergyThe [facility] (2 sources)Nitrofurantoin; Translations: [Macrobid]Drug AllergyThe [facility] (20 sources)Azithromycin; Translations: [azithromycin]Drug Coturyk15-24-6044 Eruption of skin (disorder), Unknown, Rash, Other (See Comments)[facility] (20 sources)Morphine; Translations: [morphine]Drug Jsllvyk84-12-0370Twkrcqsm (disorder), Unknown, Other (See Comments), [facility] [place] (20 sources)moxifloxacin; Translations: [moxifloxacin]Drug Pojebys79-61-8156 Eruption of skin (disorder), Rash, Unknown, Other (See Comments)[facility] [place] (2 sources)NITROFURANTOIN, MACROCRYSTALS / Nitrofurantoin, Monohydrate; Translations: [nitrofurantoin]Drug Wdbelhn70-99-0081Lmza irritation (disorder), Rash, Other (See Comments)[facility] [place] (20 sources)Cephalexin; Translations: [CEPHALEXIN]Drug Fxwsekn63-48-1782GuqqBDHZ [facility] (20 sources)Corticosteroids and derivativesDrug Vvfplxw54-04-8955GzaanytOZHY [facility] (20 sources)Nitrofurantoin; Translations: [NITROFURANTOIN]Drug Gkoxapy39-15-2303 Unknown, Other (See Comments), [facility] (20 sources)NitrofurantoinDrug Dkizviq04-28-4007FcfkhopSRSG Healthcare (2 sources)Corticosteroids; Translations: [CORTICOSTEROIDS (GLUCOCORTICOIDS)] Propensity to adverse reactions to drug (disorder)51-44-0995Kcswz (See Comments) [facility] Repository (1 source)NITROFURANTOIN MONOHYD/M-CRYST; Translations: [NITROFURANTOIN MONOHYD/M-CRYST]Propensity to adverse reactions to drug (disorder)11-22-2015 [facility] Repository (1 source)CephalexinDrug Axokxpw31-79-6431MmvpavvvqCl[facility] (1 source)MorphineDrug Ccmwcvh77-57-3679TnwfvwlcaClinton [facility] Hospital Rep[facility] (1 source)moxifloxacinDrug Stthjdr26-81-2884CqwsjygoyClinton Memorial Hospital Rep[facility] (1 source)NitrofurantoinDrug Nuiosxt46-88-8901VvygfakojClinton Memorial Hospital Repository Medications Current Medications MedicationDrug Class(es)DatesSig (Normalized)Sig (Original)acetaminophen 325 mg / oxyCODONE hydrochloride 5 mg oral tablet (20 sources)Opioid AgonistStart: 03-09-2025 End: 61-40-6965rizc 1 tablet by mouth every twelve hours as needed for pain Oxycodone-Acetaminophen (Percocet) 5-325 mg tablet Active 1 TAB PO Every 12 hours as needed for pain, severe 60 April 13, 2025 Complies with drug therapyStart: 01-20-2025 End: 13-75-7073sqli 1 tablet by mouth twice daily as needed for painoxyCODONE- acetaminophen (Percocet) 5-325 MG tablet Indications: 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 , Neck pain Take 1 tablet by mouth 2 (two) times a day as needed for severe pain 60 tablet 01/20/2025 02/19/2025 ActiveStart: 12-11-2024 End: 91-25-0884udqj 1 tablet by mouth onceoxyCODONE-acetaminophen (Percocet) 5- 325 MG tablet Indications: Chronic low back pain, unspecified back pain laterality, unspecified whether sciatica present Take 1 tablet by mouth every 12 (twelve) hours PRN due now 60 tablet 12/11/2024 01/10/2025 ActiveStart: 08-26-2024 End: 67-10-5825zclp 1 tablet by mouth onceoxyCODONE-acetaminophen (Percocet) 5- 325 MG tablet Indications: Chronic low back pain, unspecified back pain laterality, unspecified whether sciatica present Take 1 tablet by mouth every 12 (twelve) hours PRN due now 60 tablet 11/06/2024 12/09/2024 Discontinued (Reorder)Start: 22-10-2580wneo 1 tablet by mouth onceoxyCODONE-acetaminophen (Percocet) 5-325 MG tablet Indications: Chronic low back pain, unspecified back pain laterality, unspecified whether sciatica present Take 1 tablet by mouth every 12 (twelve) hours PRN 60 tablet 06/04/2024 ActiveStart: 04-28-2024 End: 49-83-3833zmhh 1 tablet by mouth onceoxyCODONE-acetaminophen (Percocet) 5- 325 MG tablet Indications: Chronic low back pain, unspecified back pain laterality, unspecified whether sciatica present Take 1 tablet by mouth every 12 (twelve) hours PRN 60 tablet 08/26/2024 09/25/2024 ActiveStart: 03-15-2020 Percocet 7.5/325 1 tab(s), Oral, BID Pain 1-5, Refill(s) 0 Start Date: 03/15/20 Status: Orderedtake 1 tablet by mouth every twelve hoursoxyCODONE-acetaminophen (Percocet) 5-325 MG tablet Take 1 tablet by mouth every 12 (twelve) hours. PRN 0 [id number] 200 actuat albuterol 0.09 mg/actuat metered dose inhaler (20 sources)beta2-Adrenergic AgonistStart: 60-56-6149ixgd 1 puff(s) by inhalation every four to six hours as neededAlbuterol Sulfate 90 mcg/actuation HFA aerosol inhaler Active 1 PUFF INHALATION EVERY 4-6 HOURS as needed May 20, 2025 12:00am Complies with drug therapyStart: 76-92-8035zpgi 1 puff(s) by inhalation every four hours for wheezingalbuterol HFA (Ventolin HFA) 90 mcg/act inhaler Indications: Shortness of breath Inhale 1 puff every 4 (four) hours if needed for wheezing or shortness of breath 18 g 11 04/29/2025 ActiveStart: 10-12-2022 End: 33-64-6075jtma 1 puff(s) by inhalation every four hours for wheezing Ventolin HFA 108 (90 Base) MCG/ACT inhaler Inhale 1 puff every 4 (four) hours if needed for wheezing or shortness of breath. 10/12/2022 04/29/2025 Discontinued (Reorder)albuterol 0.833 mg/ml / ipratropium bromide 0.167 mg/ml inhalation solution (20 sources)Anticholinergic, beta2-Adrenergic AgonistStart: 05-20-2025 Ipratropium-Albuterol 0.5 mg-3 mg(2.5 mg base)/3 mL solution for nebulization Active ML INHALATION every 6 to 8 hours May 20, 2025 12:00am Complies with drug therapyStart: 10-12-2022 End: 13-13-3852vmxtemnblnw-albuterol (Duo-Neb) 0.5-2.5 mg/3 mL nebulizer solution Indications: Acute exacerbation of chronic obstructive pulmonary disease (COPD) (HCC) , Shortness of breath Take 3 mL by nebulization every 6 (six) hours PRN 180 mL 11 04/29/2025 ActiveStart: 34-93-8845hwcjnvqfh- ipratropium See Instructions, Refill(s) 0, 2 inhalations 6 times per day Start Date: 03/15/20 Status: Orderedamoxicillin 875 mg oral tablet (2 sources)Penicillin-class AntibacterialStart: 04-29-2025 End: 29-08-9235epsg 1 tablet by mouth in the morningamoxicillin (Amoxil) 875 MG tablet Indications: Acute non-recurrent pansinusitis Take 1 tablet (875mg) by mouth in the morning and 1 tablet (875 mg) before bedtime. Do all this for 10 days. 20 tablet 04/29/2025 05/09/2025 Activeatenolol 50 mg oral tablet (20 sources)beta-Adrenergic BlockerStart: 55-02-6436nagn 1 tablet by mouth once dailyatenolol (Tenormin) 50 MG tablet Indications: Essential hypertension TAKE 1 TABLET BY MOUTH EVERY DAY 100 tablet 3 12/02/2024 ActiveStart: 90-75-2304gizv 1 tablet by mouth once dailyatenolol (Tenormin) 50 MG tablet Indications: Essential hypertension (CMS/HCC) TAKE 1 TABLET BY MOUTH EVERY DAY 100 tablet 3 11/15/2023 ActiveStart: 41-14-9956zrhm 1 tablet by mouth once dailyatenolol 50 mg Tab 50 mg = 1 tab(s), Oral, Daily, Refills(s) 0 Start Date: 03/15/20 Status: Orderedazithromycin 250 mg oral tablet (2 sources)Macrolide AntimicrobialStart: 10-15-2024 End: 40-91-2151epdt 2 tablets by mouth once daily, then take 1 tablet by mouth once dailyazithromycin (Zithromax) 250 MG tablet Indications: Bronchitis Take 2 tablets (500 mg) by mouth Daily for 1 day, THEN 1 tablet (250 mg) Daily for 4 days. 6 tablet 10/15/2024 10/20/2024 Activeciprofloxacin 500 mg oral tablet (2 sources)Quinolone AntimicrobialStart: 03-11-2025 End: 28-69-7777ndwu 1 tablet by mouth in the morningciprofloxacin (Cipro) 500 MG tablet Indications: Urinary Tract Infection Take 1 tablet (500 mg) by mouth in the morning and 1 tablet (500 mg) before bedtime. Do all this for 7 days. 10 tablet 03/11/2025 03/18/2025 ActiveclonazePAM 1 mg oral tablet (20 sources)BenzodiazepineStart: 00-34-4191kgua 1 tablet by mouth three times dailyClonazepam 1 mg tablet Active 1 MG PO Three times daily May 20, 2025 12:00am Complies with drug therapytake 3 tablets by mouth in the morning clonazePAM (KlonoPIN) 1 mg tablet Take 3 tablets (3 mg total) by mouth in the morning. Activedocusate sodium 100 mg oral capsule (20 sources)Docusate Sodium (DSS) 100 MG capsule Take 100 mg by mouth every 12 (twelve) hours if needed. Activeempagliflozin 10 mg oral tablet (20 sources)Sodium-Glucose Cotransporter 2 InhibitorStart: 01-20-1095Hazxgvonn 10 MG Indications: Type 2 diabetes mellitus with stage 2 chronic kidney disease, without long-term current use of insulin (HCC) TAKE 1 TABLET BY MOUTH EVERY DAY 100 tablet 3 10/27/2024 ActiveStart: 43-61-6365pgbgxfimwfxmi (Jardiance) 10 MG Indications: Type 2 diabetes mellitus with stage 2 chronic kidney disease, without long-term current use of insulin ([facility]/HCC) TAKE 1 TABLET BY MOUTH EVERY DAY FOR 90 DAYS 100 tablet 3 11/15/2023 Activeescitalopram 20 mg oral tablet (20 sources)Serotonin Reuptake InhibitorStart: 91-81-2099bjqh 1 tablet by mouth once dailyescitalopram (Lexapro) 20 MG tablet Take 1 tablet by mouth 1 (one) time each day. 03/21/2023 Activeestradiol 0.1 mg/ml vaginal cream (20 sources)EstrogenStart: 45-76-6068hmxwdkclf (Estrace) 0.1 MG/GM vaginal cream PLEASE SEE ATTACHED FOR DETAILED DIRECTIONS 11/10/2024 ActiveStart: 11-10-2024 End: 53-80-2159zfhazjbsk (Estrace) 0.1 MG/GM vaginal cream Indications: Menopausal state Insert 2 g into the vagina Daily Apply 1/2 APPLICATOR daily for 2 weeks, then twice weekly thereafter for maintenance. 42.5 g3 11/10/2024 12/10/2024 Activefluticasone propionate 0.05 mg/actuat metered dose nasal spray (20 sources)CorticosteroidStart: 23-18-7542nnah 1 spray(s) nasal route once dailyFluticasone Propionate (Flonase Allergy Relief) 50 mcg/actuation spray,suspension Active 1 SPRAY INTRANASAL Daily May 20, 2025 12:00am administer into each nostril Complies with drug therapyfluticasone (Flonase) 50 MCG/ACT nasal spray 1 spray 1 (one) time each day at the same time PRN Active fluticasone 0.05 mg/inh Nasal [place] (1 source)Start: 20-16-9811wuedgfhwgtg 0.05 mg/inh Nasal [place] 1 spray(s), Nasal, BID, Refill(s) 0 Start Date: 03/15/20 Status:Orderedibuprofen 800 mg oral tablet (20 sources)Nonsteroidal Anti-inflammatory DrugStart: 39-59-0332wtgzkgrin 800 MG tablet PRN 06/06/2023 ActiveStart: 32-69-7888mfowkxjdj 800 MG tablet PRN 06/06/2023 Activeinulin 200 mg / lactobacillus rhamnosus gg [id number] unt oral capsule (1 source)Start: 27-37-6184Duhvlpkg. Rhamnosus Gg-Inulin 10 billion cell -200 mg capsule Active CAP PO May 20, 2025 12:00am Complies with drug therapy Lactobacillus-Inulin (CULTURELLE DIGESTIVE DAILY PO) (20 sources)take 1 tablet by mouth once dailyLactobacillus-Inulin (CULTURELLE DIGESTIVE DAILY PO) Take 1 tablet by mouth 1 (one) time each day Active levothyroxine sodium 0.075 mg oral tablet (20 sources)l-ThyroxineStart: 62-11-0585unue 1 tablet by mouth once daily in the morninglevothyroxine (Synthroid, Levoxyl) 75 MCG tablet Indications: Acquired hypothyroidism TAKE 1 TABLETBY MOUTH ONCE EVERY MORNING ON AN EMPTY STOMACH 90 tablet 4 02/26/2025 ActiveStart: 21-41-0835jgxg 1 tablet by mouth once daily in the morninglevothyroxine (Synthroid, Levoxyl) 75 MCG tablet Indications: Acquired hypothyroidism (CMS/HCC) TAKE 1 TABLET BY MOUTH ONCE EVERY MORNING ON AN EMPTY STOMACH 100 tablet 3 01/30/2024 ActiveStart: 62-48-6805xpir 1 tablet by mouth once dailySynthroid 75 mcg (0.075 mg) Tab 75 microgram = 1 tab(s), Oral, Daily, Refills(s) 0 Start Date: 03/15/20 Status: Orderedmeclizine hydrochloride 25 mg oral tablet (20 sources)AntiemeticStart: 17-77-6359tznh 1 tablet by mouth once daily as needed for nauseameclizine (Antivert) 25 MG tablet Indications: Meniere's disease of both ears Take 1 tablet (25 mg)by mouth Daily as needed for nausea 30 tablet 2 09/09/2024 ActiveStart: 79-34-5331xwhq 1 tablet by mouth once daily as needed for nauseameclizine (Antivert) 25 MG tablet Indications: Meniere's disease of both ears Take 1 tablet (25 mg)by mouth Daily as needed for nausea 30 tablet 2 06/19/2024 ActiveStart: 44-41-4848ylrm 1 tablet by mouth three times dailyAntivert 25 mg Tab 25 mg = 1 tab(s), Oral, TID, Refills(s) 0 Start Date: 03/15/20 Status: Orderedtake 1 tablet by mouth every twenty-four hours as needed for nauseameclizine (Antivert) 25 MG tablet Take 1 tablet by mouth Daily as needed for nausea. Activemeloxicam 15 mg oral tablet (20 sources)Nonsteroidal Anti-inflammatory DrugStart: 03-15-2020 End: 50-66-6890peef 1 tablet by mouth once dailymeloxicam (Mobic) 15 MG tablet Indications: Degeneration of intervertebral disc of lumbar region with discogenic back pain , Neck pain Take 1 tablet (15 mg) by mouth Daily 30 tablet 2 12/17/2024 ActiveMOUNJARO 2.5 mg/0.5 mL pen injector (1 source)inject 0.5 mL by subcutaneous injection every weekMOUNJARO 2.5 mg/0.5 mL pen injector INJECT 0.5ML SUBCUTANEOUSLY ONCE A WEEK ActiveMultiple Vitamin (multivitamin) tablet (20 sources)take 1 tablet by mouth once dailyMultiple Vitamin (multivitamin) tablet Take 1 tablet by mouth Daily ActiveMultivitamin tablet (1 source)Start: 55-62-4710eqtx 1 tablet by mouth once dailyMultivitamin tablet Active 1 TAB PO Daily May 20, 2025 12:00am Complies with drug therapy Multivitamin, Therapeutic w/ Minerals (1 source)Start: 88-94-1044tuli 1 tablet by mouth once dailyMultivitamin, Therapeutic w/ Minerals 1 tab(s), Oral, Daily, Refill(s) 0 Start Date: 03/16/20 Status: Orderedomeprazole 20 mg delayed release oral capsule (20 sources)Proton Pump InhibitorStart: 03-15-2020 End: 29-81-0872euom 1 capsule by mouth before mealtimeomeprazole (PriLOSEC) [address] capsule Indications: Gastroesophageal reflux disease without esophagitis Take 1 capsule (20 mg) by mouth in the morning. Take before meals. 100 capsule 3 10/30/2023 12/18/2024 Discontinued (Other)ondansetron 4 mg disintegrating oral tablet (20 sources)Serotonin-3 Receptor AntagonistStart: 00-51-3676gzcv 1 tablet by mouth every six hours as neededOndansetron 4 mg tablet,disintegrating Active 4 MG PO Every 6 hours as needed May 20, 2025 12:00am Complies with drug therapyStart: 04-03-2025 End: 49-37-4532eihk 1 tablet by mouth every six hours for nauseaondansetron ODT (Zofran-ODT) 4 MG disintegrating tablet Indications: Urinary frequency , Other fatigue Take 1 tablet (4 mg) by mouth every 6 (six) hours if needed for nausea or vomiting for up to 30 doses 30 tablet 04/03/2025 04/29/2025 Discontinued (Therapy completed)Start: 01-06-2025 End: 88-87-2751tbil 1 tablet by mouth onceondansetron (Zofran) 4 MG tablet Indications: Nausea Take 1 tablet (4 mg) by mouth every 12 (twelve) hours if needed for nausea 20 tablet 2 01/06/2025 07/14/2025 Discontinued (Therapy completed)Start: 10-21-8442xmjp 1 tablet by mouth onceondansetron (Zofran) 4 MG tablet Indications: Nausea Take 1 tablet (4 mg) by mouth every 12 (twelve) hours if needed for nausea 20 tablet 2 10/30/2023 Activephenazopyridine hydrochloride 200 mg delayed release oral tablet (12 sources)take 1 tablet by mouth three times daily as needed for muscle spasms phenazopyridine (Pyridium) 200 MG tablet Take 200 mg by mouth 3 (three) times a day as needed for bladder spasms Activemicroencapsulated potassium chloride 20 meq extended release oral tablet (20 sources)Start: 75-28-0445spvo 1 tablet by mouth once dailypotassium chloride CR (Klor-Con M20) 20 MEQ ER tablet Indications: Hypokalemia TAKE 1 TABLET BY MOUTH EVERY DAY 90 tablet 4 12/08/2024 ActiveStart: 34-35-1716azgw 1 tablet by mouth once dailyKLOR-CON 20 MEQ ER tablet Indications: Hypokalemia TAKE 1 TABLET BY MOUTH EVERY DAY 100 tablet 3 11/15/2023 ActiveStart: 23-87-5373Diis-Con M20 20 mEq, Oral, Daily, Refills(s) 0 Start Date: 03/15/20 Status: OrderedpredniSONE 10 mg oral tablet (4 sources)Start: 04-29-2025 End: 67-18-4640krlx 4 tablets by mouth once daily, then take 3 tablets by mouth once daily, then take 2 tablets bymouth once daily, then take 1 tablet by mouth once dailypredniSONE (Deltasone) 10 MG tablet Indications: Acute exacerbation of chronic obstructive pulmonary disease (COPD) (HCC) Take 4 tablets (40 mg) by mouth Daily for 2 days, THEN 3 tablets (30 mg) Daily for 2 days, THEN 2 tablets (20 mg) Daily for 2 days, THEN 1 tablet (10 mg) Daily for 2 days. 20 tablet 04/29/2025 05/07/2025 ActiveStart: 10-15-2024 End: 75-04-8017apbi 1 tablet by mouth once dailypredniSONE (Deltasone) 20 MG tablet Indications: Bronchitis Take 1 tablet (20 mg) by mouth Daily for 5 days 5 tablet 10/15/2024 10/20/2024 ActiveRed Yeast Rice Extract (RED YEAST RICE PO) (20 sources)take 1 tablet by mouth once dailyRed Yeast Rice Extract (RED YEAST RICE PO) Take 1 tablet by mouth Daily Activesemaglutide (Ozempic, 1 MG/DOSE,) 4 MG/3ML solution pen-injector (4 sources)Start: 03-16-2025 End: 36-87-1582ldryhcbtpdm (Ozempic, 1 MG/DOSE,) 4 MG/3ML solution pen-injector Indications: Type 2 diabetes mellitus with stage 2 chronic kidney disease, without long-term current use of insulin (HCC) Inject 1 mg under the skin 1 (one) time per week 3 mL 03/16/2025 04/29/2025 Discontinued (Ineffective) Start: 18-46-3470bemwqwyxhfz (Ozempic, 1 MG/DOSE,) 4 MG/3ML solution pen- injector Indications: Type 2 diabetes mellitus with stage 2 chronic kidney disease, without long-term current use of insulin (HCC) Inject 1 mg under the skin 1 (one) time per week 3 mL 03/16/2025 ActiveSITagliptin 100 mg oral tablet (1 source)Dipeptidyl Peptidase 4 InhibitorStart: 74-32-1982jvke 1 tablet by mouth once dailyJanuvia 100 mg Tab 100 mg = 1 tab(s), Oral, Daily Start Date: 03/15/20 Status: Orderedsulfamethoxazole 800 mg / trimethoprim 160 mg oral tablet (1 source)Dihydrofolate Reductase Inhibitor Antibacterial, Sulfonamide AntimicrobialStart: 04-03-2025 End: 29-66-2211ujpu 1 tablet by mouth once in the morning, then take 1 tablet by mouth once at bedtimesulfamethoxazole-trimethoprim (Bactrim DS) 800-160 MG per tablet Indications: Urinary frequency , Other fatigue Take 1 tablet by mouth in the morning and 1 tablet before bedtime. Do all this for 7 days. 14 tablet 04/03/2025 04/10/2025 ActiveTirzepatide (1 source)Start: 54-78-1115Lxlrhtblvuf (Mounjaro) 2.5 mg/0.5 mL pen injector Active 2.5 MG SUBCUT every week May 202:00am Complies with drug therapyTirzepatide (Mounjaro) 2.5 MG/0.5ML solution auto-injector (7 sources)Start: 50-85-5065Uizwjmmwdjt (Mounjaro) 2.5 MG/0.5ML solution auto- injector Indications: Type 2 diabetes mellitus with stage 2 chronic kidney disease, without long-term current use of insulin (HCC) Inject 2.5 mg under the skin 1 (one) time per week 2 mL 11 04/29/2025 ActiveTirzepatide (Mounjaro) 2.5 MG/0.5ML solution pen-injector (5 sources)Start: 04-21-2024 End: 18-97-9924Cyqpzulgljp (Mounjaro) 2.5 MG/0.5ML solution pen-injector Indications: Type 2 diabetes mellitus with stage 2 chronic kidney disease, without long-term current use of insulin (CMS/HCC) Inject 0.5 mL under the skin 1 (one) time per week 2 mL 2 04/21/2024 06/04/2024 Discontinued (Dose adjustment)Start: 06-53-6786Tyanyjgoadp (Mounjaro) 2.5 MG/0.5ML solution pen- injector Indications: Type 2 diabetes mellitus with stage 2 chronic kidney disease, without long-term current use of insulin (CMS/HCC) Inject 0.5 mL under the skin 1 (one) time per week 2 mL 2 04/21/2024 ActiveTirzepatide (Mounjaro) 5 MG/0.5ML solution auto-injector (9 sources)Start: 42-07-4547Pjphdogcfqh (Mounjaro) 5 MG/0.5ML solution auto- injector Indications: Type 2 diabetes mellitus withstage 2 chronic kidney disease, without long-term current use of insulin (HCC) Inject 5 mg under the skin every 7 (seven) days 2 mL 5 01/02/2025 ActiveStart: 33-78-5510Tegxbyvqtww (Mounjaro) 5 MG/0.5ML solution auto-injector Indications: Type 2 diabetes mellitus withstage 2 chronic kidney disease, without long-term current use of insulin (CMS/HCC) Inject 5 mg under the skin every 7 (seven) days 2 mL 5 01/02/2025 ActiveTirzepatide (Mounjaro) 5 MG/0.5ML solution pen-injector (1 source)Start: 50-02-4207Cmrazpsfdkv (Mounjaro) 5 MG/0.5ML solution pen- injector Indications: Type 2 diabetes mellitus with stage 2 chronic kidney disease, without long-term current use of insulin (CMS/HCC) INJECT 5 MG UNDERTHE SKIN ONE TIME PER WEEK 2 mL 2 09/21/2023 ActiveTirzepatide 5 MG/0.5ML solution pen-injector (20 sources)Start: 06-04-2024 End: 12-70-4041Ihzulvmbjly 5 MG/0.5ML solution pen-injector Indications: Type 2 diabetes mellitus with stage 2 chronic kidney disease, without long-term current use of insulin (CMS/HCC) Inject 5 mg under the skin 1(one) time per week 2 mL 2 06/04/2024 01/02/2025 Discontinued (Duplicate order)Start: 11-88-8104Pasbiyzlayn 5 MG/0.5ML solution pen-injector Indications: Type 2 diabetes mellitus with stage 2 chronic kidney disease, without long-term current use of insulin (CMS/HCC) Inject 5 mg under the skin 1(one) time per week 2 mL 2 06/04/2024 ActiveTirzepatide 5 MG/0.5ML solution pen-injector (1 source)Start: 14-11-8519Cnvnsqazzqd 5 MG/0.5ML solution pen-injector Indications: Type 2 diabetes mellitus with stage 2 chronic kidney disease, without long-term current use of insulin ([facility]) Inject 5 mg under the skin 1 (one) time per week 2 mL 2 06/04/2024 ActivetiZANidine 4 mg oral tablet (20 sources)Central alpha-2 Adrenergic AgonistStart: 90-56-7091Ljzxvhxlop 4 mg tablet Active 0 .ROUTE .COMPLEX May 20, 2025 12:00am 1/2-1 tablet qam and 1 tablet qhs; Complies with drug therapyStart: 85-89-1598cwhf 0.5-1 tablets by mouth once daily in the morning, then take 1 tablet by mouth at bedtime tiZANidine (Zanaflex) 4 MG tablet Indications: Degeneration of intervertebral disc of lumbar regionwith discogenic back pain , Neck pain TAKE 1/2 TO 1 TABLET BY MOUTH EVERY MORNING AND 1 TABLET AT BEDTIME 180 tablet 1 01/20/2025 Active Start: 12-17-2024 End: 53-75-3998xgzc 0.5 tablet by mouth once daily in the morning, then take 1 tablet by mouth at bedtimetiZANidine (Zanaflex) 4 MG tablet Indications: Degeneration of intervertebral disc of lumbar regionwith discogenic back pain , Neck pain Take 1/2 -1 tab PO QAM and 1 tab PO at bedtime 60 tablet 2 12/17/2024 01/20/2025 DiscontinuedStart: 03-25-2023 End: 65-12-8105ljtv 1 tablet by mouth every eight hours as neededtiZANidine (Zanaflex) 4 MG tablet Take 1 tablet by mouth every 8 (eight) hours if needed for musclespasms. 03/25/2023 12/17/2024 Discontinued (Reorder)Start: 03-15-2020 take 1 tablet by mouth twice daily as needed for muscle spasmsZanaflex 4 mg Tab 4 mg = 1 tab(s), Oral, BID, PRN Spasm, Refills(s) 0 Start Date: 03/15/20 Status: Oxduemi37 actuat umeclidinium 0.0625 mg/actuat / vilanterol 0.025 mg/actuat dry powder inhaler (20 sources)Anticholinergic, beta2-Adrenergic AgonistStart: 10-12-2022 End: 13-23-0165xiob 1 puff(s) by inhalation once dailyUmeclidinium-Vilanterol (Anoro Ellipta) 62.5-25 MCG/ACT aerosol powder Indications: Chronic bronchitis, unspecified chronic bronchitis type (HCC) Inhale 1 puff 1 (one) time each day at the same time 1 each 5 09/04/2024 ActivevalACYclovir 1000 mg oral tablet (2 sources)Herpesvirus Nucleoside Analog DNA Polymerase Inhibitor, Herpes Simplex Virus Nucleoside Analog DNA Polymerase Inhibitor, Herpes Zoster Virus Nucleoside Analog DNA Polymerase InhibitorStart: 03-11-2025 End: 52-54-2747busk 1 tablet by mouth in the morningvalACYclovir (Valtrex) 1 g tablet Indications: HSV (herpes simplex virus) infection Take 1 tablet (1,000 mg) by mouth in the morning and 1 tablet (1,000 mg) before bedtime. Do all this for 20 days. 20 tablet 1 03/11/2025 03/31/2025 Active Problems Active Problems Problem ClassificationProblemDateDocumented DateEpisodic/ChronicAnxiety disorders (20 sources)Anxiety disorder, unspecified; Translations: [Anxiety]Onset: 02-28-2008 Resolved: 173138-06-1960YkksknrRzjoyo (20 sources)Uncomplicated moderate persistent asthma; Translations: [Moderate persistent asthma, uncomplicated]Onset: 02-28-2008 Resolved: 777859-99-7935LparwwjUkjduzr kidney disease (20 sources)Chronic kidney disease stage 3A ; Translations: [Stage 3a chronic kidney disease (HCC)]Onset: 03-31-2023 Resolved: 552592-93-2215QfdadhuSqfphwy obstructive pulmonary disease and bronchiectasis (20 sources)Chronic obstructive pulmonary disease, unspecified; Translations: [Chronic obstructive lung disease]Onset: 174444-73-5900XefgqhmAnzlsok obstructive pulmonary disease and bronchiectasis (4 sources)Bronchitis; Translations: [Bronchitis, not specified as acute or chronic]72-04-2477GlwxfutcSlbwgaqole associated with dizziness or vertigo (20 sources)Meniere's disease; Translations: [Meniere's disease, unspecified ear]Onset: 301286-05-6818VxlqzbtBmhnrlpd, dementia, and amnestic and other cognitive disorders (20 sources)Postconcussion syndrome; Translations: [Postconcussional syndrome] Onset: 643015-52-1948SsxczegJovhiodc mellitus with complications (20 sources)Type 2 diabetes mellitus; Translations: [Type 2 diabetes mellitus with diabetic chronic kidney disease]Onset: 10-18-2017 Resolved: 479466-49-4623MvxfwbyWmtojtzcd of lipid metabolism (20 sources)Pure hypercholesterolemia; Translations: [Pure hypercholesterolemia, unspecified]Onset: 663741-54-0114CizhexwPqeyopmkqw disorders (20 sources)Gastro-esophageal reflux disease without esophagitis; Translations: [Gastroesophageal reflux disease]Onset: 141205-36-7665SmwsrvoQdnlujxvh hypertension (20 sources)Essential (primary) hypertension; Translations: [Hypertensive disorder]Onset: 996452-66-5308GyswmccJeuhfkfeom disorders (6 sources)Menopausal syndrome; Translations: [Menopausal and female climacteric states]88-84-2260IgkggcdYzfvrjykw disorders (6 sources)Excessive and frequent menstruation with regular cycle; Translations: [Menorrhagia]Onset: 68-34-4813YlynafoTrfc disorders (20 sources)Major depressive disorder, single episode, unspecified; Translations: [Depressive disorder]Onset: 11-22-2015 Resolved: 176980-34-5604EjxujbhYdsda aftercare (8 sources)Patient encounter status; Translations: [Other fdc (current) drug therapy]95-07-8893XundcvggMpkuz aftercare (4 sources)Surgical follow-up; Translations: [Encounter for surgical aftercare following surgery on the sense organs]94-37-9022WzixdexkFscpg connective tissue disease (9 sources)Pain in left arm; Translations: [Pain in left arm]56-62-5330Muwswtfb Other ear and sense organ disorders (20 sources)Sensorineural hearing loss, bilateral; Translations: [Sensorineural hearing loss, bilateral]Onset: 764406-42-1299SrwmpayWgaur ear and sense organ disorders (20 sources)Chronic non-infective otitis externa; Translations: [Other otitis externa, bilateral]Onset: 401050-01-8589AsmojzqCrmew endocrine disorders (20 sources)Drug-induced adrenocortical insufficiency; Translations: [Drug- induced adrenocortical insufficiency]Onset: 047728-25-2046FbwqfupQgudx eye disorders (2 sources)Mechanical ptosis of left eyelid; Translations: [Mechanical ptosis] 93-87-0517DvhudtnhSlsih female genital disorders (20 sources)Abnormal uterine bleeding; Translations: [Other specified abnormal uterine and vaginal bleeding]Onset: 251560-45-9386UjncohvSmnxs female genital disorders (20 sources)Postcoital bleeding; Translations: [Postcoital and contact bleeding] Onset: 335928-54-4405HebpsasKlngt female genital disorders (2 sources)Pain in female genitalia on intercourse; Translations: [Unspecified dyspareunia]66-15-1678PmbrlqwXquxy female genital disorders (2 sources)Pain in pelvis; Translations: [Pelvic cramping]59-27-9886Tmwwvfox Other gastrointestinal disorders (1 source)Irritable bowel syndrome without diarrhea; Translations: [IRRITABLE BOWEL SYND W/O DIARRHEA]Onset: 31-99-7244DwwsontLxehq gastrointestinal disorders (20 sources)Irritable bowel syndrome; Translations: [Irritable bowel syndrome without diarrhea]Onset: 796182-79-1043QkugafpDigjs inflammatory condition of skin (20 sources)Rosacea; Translations: [Other rosacea]Onset: 748550-55-7064 ChronicOther lower respiratory disease (2 sources)Dyspnea; Translations: [Shortness of breath]14-21-9047TjtqpkljYpukx nervous system disorders (20 sources)Bilateral carpal tunnel syndrome; Translations: [Carpal tunnel syndrome, bilateral upper limbs]Onset: 930170-91-1624UxqztupWuges nervous system disorders (20 sources)Median neuropathy; Translations: [Other lesions of median nerve, unspecified upper limb]Onset: 379148-81-8401XslriyqUgmxm nervous system disorders (4 sources)Hyperreflexia; Translations: [Abnormal reflex]70-52-2324EhhcblukNhrar nutritional; endocrine; and metabolic disorders (20 sources)Morbid obesity; Translations: [Morbid (severe) obesity due to excess calories]Onset: 357712-76-8696IjnqmbaYbjqn nutritional; endocrine; and metabolic disorders (2 sources)Obesity caused by energy imbalance; Translations: [Morbid (severe) obesity due to excess calories]35-67-6132HvtzjusQxbeq nutritional; endocrine; and metabolic disorders (2 sources)Body mass index 30+ - obesity; Translations: [Body mass index (BMI) 36.0-36.9, adult]95-30-1232RylzejeRbyjj upper respiratory infections (20 sources)Chronic pansinusitis; Translations: [Chronic pansinusitis]Onset: 03-21-2019 Resolved: 650686-57-5524KtkokipWbxfm upper respiratory infections (3 sources)Acute pharyngitis, unspecified; Translations: [Acute pansinusitis] Onset: 840310-50-4566LjbmdounNkpnoiys codes; unclassified (1 source)Pain, unspecified; Translations: [Pain, unspecified]Onset: 06-02-2024 EpisodicSpondylosis; intervertebral disc disorders; other back problems (20 sources)Degeneration of lumbar intervertebral disc; Translations: [Degenerative disc disease, lumbar]Onset: 195375-06-4772UebekviDlhuehyhb- related disorders (20 sources)Nicotine dependence, cigarettes, uncomplicated; Translations: [Smoker]Onset: 875205-64-9754HlqeklwNkefxcy disorders (20 sources)Hypothyroidism, unspecified; Translations: [Hypothyroidism]Onset: 398727-33-8339UmtjclqYfocsqbnochv (4 sources)COUGH, UNSPECIFIED; Translations: [COUGH, UNSPECIFIED]Onset: 77-20-2142Ckdplczfiyav (4 sources)CONTACT W/AND (SUSP) EXPOS COVID-19; Translations: [CONTACT W/AND (SUSP) EXPOS COVID-19]Onset: 88-02-1259Qjplayx tract infections (6 sources)Acute cystitis; Translations: [Acute cystitis without hematuria] 06-62-9666FgvbcppzZrsip infection (2 sources)Herpes simplex; Translations: [Herpesviral infection, unspecified] 81-94-8212Yhihzenw Past or Other Problems Problem ClassificationProblemDateDocumented DateEpisodic/ChronicConditions associated with dizziness or vertigo (20 sources)Dizziness and giddiness; Translations: [Dizziness]Onset: 11-22-2015 Resolved: 268426-52-6413FelxhssaIxchqbtt of mouth; excluding dental (20 sources)Chronic glossitis; Translations: [Glossitis]Onset: 05-16-2023 Resolved: 405552-92-3558RcbvnmezH Codes: Adverse effects of medical drugs (20 sources)Antidepressant drug adverse reaction; Translations: [Adverse effect of unspecified antidepressants,initial encounter]Onset: 11-22-2015 Resolved: 873276-44-1212FswadshdWnditaptz and duodenitis (20 sources)Acute gastritis; Translations: [Acute gastritis without bleeding] Onset: 02-28-2008 Resolved: 709655-45-7866CfilpkqmCnypchzqf (1 source)Unspecified viral hepatitis C without hepatic coma; Translations: [UNS VIRAL HEPATITIS C W/O HEP COMA]Onset: 65-54-7254BkmqpuhmRzlwwmqrvp infection (1 source)Rotaviral enteritis; Translations: [ROTAVIRAL ENTERITIS]Onset: 89-23-9325ObdfheyvXvwnzlk and fatigue (3 sources)Other fatigue; Translations: [OTHER FATIGUE]Onset: 77-43-5512Plvmkelv Mood disorders (20 sources)Mood disordersOnset: 04-16-2023 Resolved: 367038-83-5089Wwuilllze of unspecified nature or uncertain behavior (20 sources)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; Translations: [Neoplasm of uncertain behavior of other specified digestive organs]Onset: 04-15-2023 Resolved: 694518-31-9016PkxkubfsJhtwh aftercare (1 source)Other terminal computer operator (current) drug therapy; Translations: [OTH USP CURRENT DRUG THERAPY]Onset: 34-21-0006XletqrukRkyvo and unspecified benign neoplasm (20 sources)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; Translations: [Benign neoplasm of liver]Onset: 566741-23-1353RebikmwiRxmiv and unspecified benign neoplasm (20 sources)Benign neoplasm of skin; Translations: [Other benign neoplasm of skin, unspecified]Onset: 09-27-2009 Resolved: 248580-83-7659GlxtakeaUthqf and unspecified benign neoplasm (20 sources)Serous cystadenoma of pancreas; Translations: [Benign neoplasm of pancreas]Onset: 466215-58-6930JugvrnwgKezdu circulatory disease (1 source)Personal history of transient ischemic attack (TIA), and cerebral infarction without residual deficits; Translations: [PERS HX TIA AND CI NO RESID DEFICIT]Onset: 03-07-9552AmxlircfHacgs circulatory disease (20 sources)History of transient ischemic attack; Translations: [Personal history of transient ischemic attack (TIA), and cerebral infarction without residual deficits]Onset: 382417-39-4015XegetffbYqyrt connective tissue disease (1 source)Myalgia, unspecified site; Translations: [MYALGIA UNSPECIFIED SITE] Onset: 96-30-7623NzktwvmrEacpt connective tissue disease (20 sources)Abdominal muscle pain; Translations: [Myalgia, other site]Onset: 02-28-2008 Resolved: 938000-13-1956ZwauwdsyWmjte connective tissue disease (20 sources)Muscle pain; Translations: [Myalgia, unspecified site]Onset: 827551-11-7517FzaubpjrEjffk connective tissue disease (20 sources)Fibromyalgia; Translations: [Fibromyalgia]Onset: 04-26-2024 39-56-6768AvjlygmkYxkvw ear and sense organ disorders (20 sources)Bilateral tinnitus; Translations: [Tinnitus, bilateral]Onset: 558392-27-4062YbefasnhMrbfy female genital disorders (20 sources)Abnormal vaginal bleeding; Translations: [Abnormal uterine and vaginal bleeding, unspecified]Onset: 07-26-2016 Resolved: 110241-66-7477LyamptsRjeja female genital disorders (20 sources)Swelling of vagina; Translations: [Noninflammatory disorder of vagina, unspecified]Onset: 04-15-2023 Resolved: 103161-44-0108PedkwdpnYkbua gastrointestinal disorders (3 sources)Diarrhea, unspecified; Translations: [DIARRHEA UNSPECIFIED]Onset: 22-83-0835EzxhwnqkEoadk gastrointestinal disorders (20 sources)History of gastritis; Translations: [Personal history of other diseases of the digestive system]Onset: 370534-16-9993GqmmmytgHxceo inflammatory condition of skin (4 sources)Pruritus, unspecified; Translations: [PRURITUS UNSPECIFIED]Onset: 16-71-8878MksqwurvQhwbl nervous system disorders (20 sources)Disorder of muscle; Translations: [Myopathy, unspecified]Onset: 07-26-2023 Resolved: 727561-48-4870CahkvmsQutnh nervous system disorders (20 sources)Carpal tunnel syndrome; Translations: [Carpal tunnel syndrome, unspecified upper limb]Onset: 04-26-2024 Resolved: 001581-28-5036PioqsigTnrxm nervous system disorders (20 sources)Abnormal gait; Translations: [Unspecified abnormalities of gait and mobility]Onset: 154658-06-9237CimoidalWxvvt nervous system disorders (20 sources)Notalgia paresthetica; Translations: [Paresthesia of skin]Onset: 357985-62-5928LruwonhfMzwgl nervous system disorders (20 sources)Skin sensation disturbance; Translations: [Unspecified disturbances of skin sensation]Onset: 621573-72-1624ZgbhudfcMomhp non-traumatic joint disorders (20 sources)Arthralgia of the pelvic region and thigh; Translations: [Pain in unspecified hip]Onset: 317769-45-6261CvklcudbSvtfh nutritional; endocrine; and metabolic disorders (20 sources)Body mass index 40+ - severely obese; Translations: [Body mass index (BMI) 45.0-49.9, adult]Onset: 07-31-2023 Resolved: 523756-60-5549KfttzabHtwab screening for suspected conditions (not mental disorders or infectious disease) (20 sources)Encounter for screening mammogram for malignant neoplasm of breast; Translations: [Full blood countabnormal]Onset: 10-34-7497DbmsoivqJijad skin disorders (20 sources)Infection of sebaceous cyst; Translations: [Sebaceous cyst]Onset: 112940-02-5097YofihjgqWewvwiqnow disorders (not diabetes) (20 sources)Cyst of pancreas; Translations: [Cyst of pancreas]Onset: 08-11-2022 EpisodicResidual codes; unclassified (1 source)Acquired absence of other specified parts of digestive tract; Translations: [ACQ ABSENCE OTH PART DIGESTV TRACT]Onset: 88-47-6255Qotrstid Residual codes; unclassified (1 source)Patient's other noncompliance with medication regimen; Translations: [PT OTH NONCOMPLIANCE W/ MED REGIMEN]Onset: 01-24-5513WgpvyranGddvfylz codes; unclassified (20 sources)Menopause present; Translations: [Asymptomatic menopausal state] Onset: 368831-08-7710DalfotarMiswcama codes; unclassified (20 sources)Transient alteration of awareness; Translations: [Transient alteration of awareness]Onset: 04-26-2024 Resolved: 921758-36-6464QzgeecydTrpzepbvnfa; intervertebral disc disorders; other back problems (20 sources)Low back pain; Translations: [Low back pain]Onset: 02-28-2008 Resolved: 338566-03-3456ElpqhnmwHqjabgnhmywz (1 source)COUGH, UNSPECIFIED; Translations: [COUGH, UNSPECIFIED]Onset: 97-60-5001Ffogfnhogzxn (1 source)CONTACT W/AND (SUSP) EXPOS COVID-19; Translations: [CONTACT W/AND (SUSP) EXPOS COVID-19]Onset: 04-13-2022 Results Test NameValueInterpretationReference RangeFacilityMM TOMOSYNTHESIS SCREENING BI on 67-11-7144[place] [address] Mammography Report Signed Patient: KEITH WASHINGTON MR#: [id number] : 1970 Acct:[id number] Age/Sex: 55 / F ADM Date: 07/27/25 Loc: US Attending Dr: Lesa Orta Ordering Physician: Lesa Orta Results: Date of Service: 07/27/25 Follow Up: Procedure(s): MM tomosynthesis screening BI Accession Number(s): [id number] cc: Lesa Orta; Physician,Non-Staff MGary Patient Name: KEITH WASHINGTON MR#: [id number] : 1970 Exam Date: 07/27/2025 Ordering Doctor: JASMINE ORTA . RADIOLOGY REPORT PROCEDURE: MM TOMOSYNTHESIS SCREENING BI COMPARISON: MM TOMOSYNTHESIS SCREENING BI, 07/25/2023. MG MAMM SCREEN 3D PATRICIA CAD, 09/14/2021. MG MAMM SCREEN PATRICIA W CAD, 04/08/2019. INDICATIONS: Screening Calculator Name NCI Breast Cancer Risk Assessment Tool 5 Year Breast Cancer Risk 1.00% Lifetime Breast Cancer Risk 6.50% Personal Breast Cancer No Personal Ovarian Cancer No Treatments None Family Cancers None LOCATION: The [facility] BREAST COMPOSITION: There are scattered areas of fibroglandular density. FINDINGS: DIAGNOSTIC CATEGORY 1--NEGATIVE. RIGHT BREAST: No significant suspicious finding. LEFT BREAST: No significant suspicious finding. RECOMMENDATIONS: ROUTINE MAMMOGRAM AND CLINICAL EVALUATION IN 12 MONTHS. Dictated by: Aleksandr Lynch MD on 07/27/2025 at 14:49 Approved by: Aleksandr Lynch MD on 07/27/2025 at 14:50 Dictated By: Aleksandr Lynch M.D. Signed By: 07/27/25 1451 DD/ 1450 TD/TT: Casino Floor Runner:TBHRadiology, Radiologist, MD - 07/27/2025 [place] [address] Mammography Report Signed Patient: KEITH WASHINGTON MR#: [id number] : 1970 Acct:[id number] Age/Sex: 55 / F ADM Date: 07/27/25 Loc: US Attending Dr: eLsa Orta Ordering Physician: Lesa Orta Results: Date of Service: 07/27/25 Follow Up: Procedure(s): MM tomosynthesis screening BI Accession Number(s): [id number] cc: Lesa Orta; Physician,Non-Staff Helen Patient Name: KEITH WASHINGTON MR#: [id number] : 1970 Exam Date: 07/27/2025 Ordering Doctor: JASMINE ORTA . RADIOLOGY REPORT PROCEDURE: MM TOMOSYNTHESIS SCREENING BI COMPARISON: MM TOMOSYNTHESIS SCREENING BI, 07/25/2023. MG MAMM SCREEN 3D PATRICIA CAD, 09/14/2021. MG MAMM SCREEN PATRICIA W CAD, 04/08/2019. INDICATIONS: Screening Calculator Name NCI Breast Cancer Risk Assessment Tool 5 Year Breast Cancer Risk 1.00% Lifetime Breast Cancer Risk 6.50% Personal Breast Cancer No Personal Ovarian Cancer No Treatments None Family Cancers None LOCATION: [facility] BREAST COMPOSITION: There are scattered areas of fibroglandular density. FINDINGS: DIAGNOSTIC CATEGORY 1--NEGATIVE. RIGHT BREAST: No significant suspicious finding. LEFT BREAST: No significant suspicious finding. RECOMMENDATIONS: ROUTINE MAMMOGRAM AND CLINICAL EVALUATION IN 12 MONTHS. Dictated by: Aleksandr Lynch MD on 07/27/2025 at 14:49 Approved by: Aleksandr Lynch MD on 07/27/2025 at 14:50 Dictated By: Aleksandr Lynch M.D. Signed By: 07/27/25 1451 DD/ 1450 TD/TT: Casino Floor Runner: [facility] HealthcareRadiology Study observation (narrative)[facility] TOMOSYNTHESIS SCREENING BIOrdered By: Radiologist Radiology on 88-61-7262PU[employer] Work Phone: US PELVIS W/ TRANSVAGINALon [phone] [address] Ultrasound Report Signed Patient: KEITH WASHINGTON MR#: [id number] : 1970 Acct:[id number] Age/Sex: 55 / F ADM Date: 07/27/25 Loc: US Attending Dr: Lesa Orta Ordering Physician: Lesa Orta Date of Service: 07/27/25 Procedure(s): US pelvis w/ transvaginal Accession Number(s): [id number] cc: Lesa Orta; Physician,Non-Staff M.Florian The [address] [address] Patient Name: KEITH WASHINGTON MRN: [id number] date: 1970 Sex: F Assigned Patient Location: US Current Patient Location: US Accession/Order Number: [id number] Exam Date: 07/27/2025 09:05 Report Date: 07/27/2025 10:08 At the request of: LESA ORTA Procedure: US pelvis w/ transvaginal ULTRASOUND PELVIS WITH TRANSVAGINAL COMPARISON: CT 03/24/2024 CLINICAL DATA: Postmenopausal patient with pelvic cramping and minimal spotting Real-time ultrasound evaluation the pelvis was performed utilizing a transabdominal and transvaginal approach. TRANSABDOMINAL: Estimated uterine size is approximately 6.4 x 3.2 x 4.1 cm. No focal myometrial abnormalities are seen. The endometrial lining is estimated at 4 - 5 mm. Both ovaries are identified. This is documentation of ovarian blood flow. TRANSVAGINAL: Transvaginal imaging was performed to better evaluate the uterus and adnexa. By this approach, no focal myometrial abnormalities are seen. The endometrial lining is estimated at 2 - 3 mm. The ovaries are again identified. The right measures 2.9 x 2.4 x 2.0 cm. The left ovary measures 3.6 x 1.9 x 2.6 cm. No adnexal cysts are present. No free fluid is seen. US/US pelvis w/ transvaginal IMPRESSION: WITHIN NORMAL LIMITS. Impression dictated by: Julia Bautista M.D. 07/27/2025 10:08 AM Dictation Location: [place] [address] Electronically authenticated by: [id number] Y Date: 07/27/2025 10:08 Dictated By: Julia Bautista M.D. Signed By: 07/27/25 1011 DD/ 1008 TD/TT: Casino Floor Runner:NEOHRadiology, Radiologist, - 07/27/[address] [address] Ultrasound Report Signed Patient: KEITH WASHINGTON MR#: [id number] : 1970 Acct:[id number] Age/Sex: 55 / F ADM Date: 07/27/25 Loc: US Attending Dr: Lesa Orta Ordering Physician: Lesa Orta Date of Service: 07/27/25 Procedure(s): US pelvis w/ transvaginal Accession Number(s): [id number] cc: Lesa Orta; Physician,Non-Staff Helen [address] [address] Patient Name: KEITH WASHINGTON MRN: [id number] date: 1970 Sex: F Assigned Patient Location: US Current Patient Location: US Accession/Order Number: [id number] Exam Date: 07/27/2025 09:05 Report Date: 07/27/2025 10:08 At the request of: LESA ORTA Procedure: US pelvis w/ transvaginal ULTRASOUND PELVIS WITH TRANSVAGINAL COMPARISON: CT 03/24/2024 CLINICAL DATA: Postmenopausal patient with pelvic cramping and minimal spotting Real-time ultrasound evaluation the pelvis was performed utilizing a transabdominal and transvaginal approach. TRANSABDOMINAL: Estimated uterine size is approximately 6.4 x 3.2 x 4.1 cm. No focal myometrial abnormalities are seen. The endometrial lining is estimated at 4 - 5 mm. Both ovaries are identified. This is documentation of ovarian blood flow. TRANSVAGINAL: Transvaginal imaging was performed to better evaluate the uterus and adnexa. By this approach, no focal myometrial abnormalities are seen. The endometrial lining is estimated at 2 - 3 mm. The ovaries are again identified. The right measures 2.9 x 2.4 x 2.0 cm. The left ovary measures 3.6 x 1.9 x 2.6 cm. No adnexal cysts are present. No free fluid is seen. US/US pelvis w/ transvaginal IMPRESSION: WITHIN NORMAL LIMITS. Impression dictated by: Julia Bautista M.D. 07/27/2025 10:08 AM Dictation Location: [place] [address] Electronically authenticated by: [id number] Y Date: 07/27/2025 10:08 Dictated By: Julia Bautista M.D. Signed By: 07/27/25 1011 DD/ 1008 TD/TT: Casino Floor Runner: [facility] HealthcareRadiology Study observation (narrative)[facility] HealthcareUS PELVIS W/ TRANSVAGINALOrdered By: Radiologist Radiology on 03-72-4721JTQKHawthorn [facility] Work Phone: Urinalysis macro (dipstick) panel (U)on 07-14-2025 Bilirubin, UANegativeNegative - 4(70) +++ mg/dLK[facility] HUM[facility]OURCE SSD HealthcareBlood, UANegative Negative - 50 [place]/mcLKANE COUNTY HUM[facility] RESOURCE SSD HealthcareClarity, UAClearNONH HealthcareColor, UA YellowNONH HealthcareGlucose, UA3+Negative - 2000(110) ++++ mg/dLK[facility] Healthcare Interpretation and review of laboratory resultsNormalKANE COUNTY [facility]OURCE [facility] HealthcareKetones, UA NegativeNegative - 160(16) ++++ mg/dLKANE COUNTY HUM[facility]OURCE SSD HealthcareLeukocytes, UANegative Negative - 500+++ Catherine/mcLK[facility] HealthcareNitrite, UANegativeNegative - Positive [facility] HealthcarepH, UA5.55 - 9NONH HealthcareProtein, UANegativeNegative - 2000(20) ++++ mg/dLK[facility] COUNTY HUMAN RESOURCE SSD HealthcareSpec Grav, UA1.0051 - 1.03[facility] Urobilinogen, UA1.00.2 - 12 mg/dLOzarks Community Hospital HealthcareALBUMIN, RANDOM URINE W/CREATININEon 00-79-7632GYOUMAF, URINE0.2 mg/dLNormalSee Note:Quest DiagnosticsComment on above:Result Comment: Reference Range: Reference Range Not establishedPerformed By: #### [id number] #### [facility] [address], [address] [place] [id number] Machine Pecan Gatherer: Luca Guajardo MDALBUMIN/CREATININE RATIO, RANDOM URINE2 mg/g creatNormal<30Quest DiagnosticsComment on above:Result Comment: The ADA defines abnormalities in albumin excretion as follows: Albuminuria Category Result (mg/g creatinine) Normal to Mildly increased <30 Moderately increased 30-299 Severely increased > OR = 300 The ADA recommends that at least two of three specimens collected within a 3-6 month period be abnormal before considering a patient to be within a diagnostic category.Performed By: #### 1249 #### [facility] [address], [address] [place] [address] Machine Pecan Gatherer: Luca Guajardo MDCreatinine (U) [Mass/Vol]91 mg/oAJumbrf29-356 Quest DiagnosticsComment on above:Performed By: #### 6517 #### [facility] [address], [address] [place] [address] Machine Pecan Gatherer: Luca Guajardo MDLIPID PANEL, STANDARD 01-21-2835Frfdzeasxqy [Mass/Vol]205 mg/dLHigh<200Quest DiagnosticsComment on above:Order Comment: FASTING:YES FASTING: YESPerformed By: #### 7600 #### [facility] [address], [address] [place] [address] Machine Pecan Gatherer: Luca Guajardo MDCholesterol in HDL [Mass/Vol]46 mg/dLLow> OR = 50Quest DiagnosticsComment on above:Order Comment: FASTING:YES FASTING: YESPerformed By: #### 7600 #### [facility] [address], [address] [place] [address] Machine Pecan Gatherer: Luca Guajardo MDCholesterol in LDL [Mass/Vol]129 mg/dLHigh Quest DiagnosticsComment on above:Order Comment: FASTING:YES FASTING: YESResult Comment: Reference range: <100 Desirable range <100 mg/dL for primary prevention; <70 mg/dL for patients with CHD or diabetic patients with > or = 2 CHD risk factors. LDL-C is now calculated using the Heather calculation, which is a validated novel method providing better accuracy than the Friedewald equation in the estimation of LDL-C. Bill RUBIO et al. NOÉ. 2013;310(19): 9064-6447 (http://education.Fixya.com/faq/WNA819)Performed By: #### 7600 #### [facility] [address], [address] [place] [address] Machine Pecan Gatherer: Luca CAIholesteromilvia.total/Cholesterol in HDL [Mass ratio]4.5 {ratio}Normal<5.0Quest DiagnosticsComment on above:Order Comment: FASTING:YES FASTING: YESPerformed By: #### 7600 #### [facility] [address], [address] [place] [address] Machine Pecan Gatherer: Luca BLACKWOOD HDL LKFWXGAGDSW745 mg/dL (calc)High<130 Quest DiagnosticsComment on above:Order Comment: FASTING:YES FASTING: YESResult Comment: For patients with diabetes plus 1 major ASCVD risk factor, treating to a non-HDL-C goal of <100 mg/dL (LDL-C of <70 mg/dL) is considered a therapeutic option.Performed By: #### 7600 #### [facility] [address], [address] [place] [address] Machine Pecan Gatherer: Luca Guajardo MDTriglyceride [Mass/Vol]186 mg/dLHigh<150Quest DiagnosticsComment on above:Order Comment: FASTING:YES FASTING: YESPerformed By: #### 7600 #### [facility] [address], [address] [place] [address] Machine Pecan Gatherer: Luca Guajardo MDHbA1c (Bld) [Mass fraction]on 04-29-2025 Interpretation and review of laboratory resultsNormalOzarks Community Hospital HealthcareLaboratory - Hematology and Cell countson 69-53-6822VgO8x (Bld) [Mass fraction]5.7 %[facility] HealthcareNo Panel Informationon 56-93-6231YODQTPXCOROVME EPIDERMIDIS, HAEMOLYTICUS, LUGDUNENSIS, SAPROPHYTICUS (XQCOY1YLKS Healthcare STAPHYLOCOCCUS EPIDERMIDIS, HAEMOLYTICUS, LUGDUNENSIS, SAPROPHYTICUS (URINANot detectedNOMS HealthcareURINARY TRACT INFECTION (HTRX)on 69-96-8424XQNCPOEUVDZMF QQRUCQVU2TEXH HealthcareACINETOBACTER BAUMANIINot detectedNOMS HealthcareCANDIDA ALBICANS, PARAPSILOSIS, GGAKLFZGVU3OQQM HealthcareCANDIDA ALBICANS, PARAPSILOSIS, TROPICALISNot detectedNOMS HealthcareCANDIDA HXXMKXCY8PZLP HealthcareCANDIDA GLABRATANot detectedNOMS HealthcareCANDIDA IWZEUW5NBWS HealthcareCANDIDA KRUSEINot detectedNOMS HealthcareCITROBACTER CBBVRJWY4ZRIZ HealthcareCITROBACTER FREUNDIINot detectedNOMS HealthcareENTEROBACTER AEROGENES, NICTUYZ2UCFU HealthcareENTEROBACTER AEROGENES, CLOACAENot detectedNOMS HealthcareENTEROCOCCUS FAECALIS, UIDENQW4MEGQ HealthcareENTEROCOCCUS FAECALIS, FAECIUMNot detectedNOMS HealthcareESCHERICHIA VUUT4QQWH HealthcareESCHERICHIA COLINot detectedNOMS HealthcareKLEBSIELLA PNEUMONIAE, NIAZQPU9XSIP Healthcare KLEBSIELLA PNEUMONIAE, OXYTOCANot detectedNOMS HealthcareMORGANELLA MORGANII0 NOMS HealthcareMORGANELLA MORGANIINot detectedNOMS HealthcarePROTEUS MIRABILIS, JWFBXBDZ4NESU HealthcarePROTEUS MIRABILIS, VULGARISNot detectedNOMS Healthcare PSEUDOMONAS AOTUGTHGKU0RERI HealthcarePSEUDOMONAS AERUGINOSANot detectedNOMS HealthcareSERRATIA BXAWLONDJG3EQAH HealthcareSERRATIA MARCESCENSNot detectedNOMS HealthcareSTAPHYLOCOCCUS QANUSW9EJHG HealthcareSTAPHYLOCOCCUS AUREUSNot detected NOMS HealthcareSTREPTOCOCCUS AGALACTIAE (GROUP B STREP)0[facility] Healthcare STREPTOCOCCUS AGALACTIAE (GROUP B STREP)Not detectedNOMS HealthcareSTREPTOCOCCUS PYOGENES (GROUP A STREP)0NOMS HealthcareSTREPTOCOCCUS PYOGENES (GROUP A STREP) Not detectedNOMS HealthcareNOMS HealthcareUrinalysis macro (dipstick) panel (U) on 48-33-4905Meqsmuhog, UANegativeNegative - 4(70) +++ mg/dLNOMS Healthcare Blood, UANegativeNegative - 50 Eleno/mcLNOMS HealthcareClarity, UAClearNOMS HealthcareColor, UAYellowNOMS HealthcareGlucose, UAPositiveNegative - 2000(110) ++++ mg/dLNONH HealthcareComment on above:500mg/dLInterpretation and review of laboratory resultsAbnormalNOMS HealthcareKetones, UANegativeNegative - 160(16) ++++ mg/dLNONH HealthcareLeukocytes, UANegativeNegative - 500+++ Catherine/mcLNOMS HealthcareNitrite, UANegativeNegative - PositiveNOMS HealthcarepH, UA6.55 - 9 NOMS HealthcareProtein, UANegativeNegative - 2000(20) ++++ mg/dLNONH Healthcare Spec Grav, UA1.0051 - 1.03NOMS HealthcareUrobilinogen, UA0.20.2 - 12 mg/dLNOMS HealthcareNOMS HealthcareUrine Cultureon 85-06-1549Iluamsjo identified Cx Nom (U)No Growth 2 Days PERFORMED BY: [facility] [address] [place] [address] PATHOLOGIST BUTTON MACHINE OPERATOR ANTONY ROWAN M.D.NormalThe [facility] Cabarrus Physician GroupComment on above: Performed By: #### CUU #### [facility] [address] [place] [address] USAUrine cultureOrdered By: Baron Wallace on 03-01-2025 Bacteria identified Cx Nom (U)No Growth [facility] DaysCl[facility] ALL CBC WITH AUTO DIFFon 53-08-7310YDBNOPWPE ABSOLUTE AUTO0.1NOMS Healthcare Basophils/100 WBC (Bld)1.1 %0.2 - 2.0 %NOMS HealthcareEosinophils/100 WBC (Bld) 1.8 %0.9 - 7.0 %NOMS HealthcareErythrocyte distribution width (RBC) [Ratio]13 % 11.0 - 15.0 %NOMS HealthcareHematocrit (Bld) [Volume fraction]48.2 %High36.0 - 48.0 %NOMS HealthcareHemoglobin (Bld) [Mass/Vol]16 g/dL12.0 - 16.0 g/dLNONH HealthcareIMMATURE GRANULOCYTES ABS AUTO0.01NOMS HealthcareImmature granulocytes/100 WBC (Bld)0.2 %0.0 - 0.5 %NOMS HealthcareInterpretation and review of laboratory resultsAbnormalNONH HealthcareLYMPHOCYTES ABSOLUTE AUTO3.4 NOMS HealthcareLymphocytes/100 WBC (Bld)55 %20.5 - 60.0 %NOMS HealthcareMCH (RBC) [Entitic mass]29.2 pg26.7 - 34.0 pgNOSSM DePaul Health CenterMCHC (RBC) [Mass/Vol] 33.2 g/dL29.9 - 35.2 g/dLNONH HealthcareMCV (RBC) [Entitic vol]88 fL81.0 - 99.0 fLNONH HealthcareMONOCYTES ABSOLUTE AUTO0.6NOMS HealthcareMonocytes/100 WBC (Bld)9 %1.7 - 12.0 %NOMS HealthcareNEUTROPHILS ABSOLUTE GLJD5LXZF Healthcare Neutrophils/100 WBC (Bld)32.9 %Low43.0 - 75.0 %NOMS HealthcarePlatelet mean volume (Bld) [Entitic vol]9.6 fL9.5 - 13.5 fLNOMS HealthcareTBH EO #0.1NOMS HealthcareTBH AJU697NCAK HealthcareTBH RBC5.48HighNOMS HealthcareTBH WBC6.2NOMS HealthcareCLINISYNCNOMS HealthcareLon 12-26-2024 Specimen: [id number] Received: 12/26/24 Status: MARCIE Jackson Num: [id number] Spec Type: Surgical Subm Dr: Will Carson Tissues: A Endometrium - Curettings (ENDOMETRIAL CURRETTINGS) Procedures: ALEX/Agapito Mejia/Armaan L4 Age/ Patient Sex Location Account Attending Physician Keith Washington 54/F LABELL [id number] Will Carson SPEC NUM: [id number] RECD: 12/26/24 STATUS: MARCIE JACKSON NUM: [id number] JOSEMANUEL: 12/26/[address] [facility] [address]: Will Carson ENTERED: 12/26/[address]: Nenita,Lab SPEC TYPE: Surgical DEPT: RAYMOND CALLAHAN ENTERED BY: [id number] RECV BY: [id number] ORDERED: HE/2, Gross/Micro L4 ORDERED: HE/2, Gross/Micro [...] submitted in a single cassette. (1, ns, [id number]) JIMMIE Specimen: [id number] Received: 12/26/24 Status: MARCIE Jackson Num: [id number] Spec Type: Surgical Subm Dr: Will Carson Tissues: A Endometrium - Curettings (ENDOMETRIAL CURRETTINGS) Procedures: HE/2, Gross/Micro L4 Patient: Keith Washington [id number] (Continued) Signed (signature on file) Day Myles MD 12/29/[address] [place] [address] Physician GroupLaboratory - Hematology and Cell countson 12-25-9490TwE1p (Bld) [Mass fraction]5.6 %[facility] HospitalNo Panel Informationon 49-88-9730Obvhoauuylqruh and review of laboratory resultsNoFort Memorial HospitalUS PELVIC COMPLETE W/ TVon 07-91-6321NB PELVIC COMPLETE W/ TV EXAM: US PELVIC COMPLETE W/ TV HISTORY: Bleeding after intercourse, pain. COMPARISON: None available. TECHNIQUE: Two-dimensional transabdominal grayscale ultrasound imaging of the pelvis was performed.Color flow Doppler imaging of the ovaries was [...] II, MD, PHD at 11-Dec-2024 08:46:31 AM [facility] TeleradiologyNormalNot AvailableComment on above:Order Comment: US PELVIS-TRANSVAG IF INDICATED No LMP recorded. Patient is premenopausal.LIPID PANEL, STANDARDon 10-16-2024 Cholesterol [Mass/Vol]249 mg/dLHigh<200Quest DiagnosticsComment on above:Order Comment: FASTING:YES FASTING: YESPerformed By: #### 7600 #### [facility] [address], [address] [place], [place] [address] Machine Pecan Gatherer: Luca Guajardo MDCholesterol in HDL [Mass/Vol]48 mg/dLLow> OR = 50Quest DiagnosticsComment on above:Order Comment: FASTING:YES FASTING: YESPerformed By: #### 7600 #### [facility] [address], [address] [place], [place] [address] Machine Pecan Gatherer: Luca Guajardo MDCholesterol in LDL [Mass/Vol]159 mg/dLHigh Quest DiagnosticsComment on above:Order Comment: FASTING:YES FASTING: YESResult Comment: Reference range: <100 Desirable range <100 mg/dL for primary prevention; <70 mg/dL for patients with CHD or diabetic patients with > or = 2 CHD risk factors. LDL-C is now calculated using the Heather calculation, which is a validated novel method providing better accuracy than the Friedewald equation in the estimation of LDL-C. Bill RUBIO et al. NOÉ. 2013;310(19): 5314-0831 (http://education.Fixya.KidZui/faq/VIZ568)Performed By: #### 1490 #### [facility] [address], [address] [place] [address] Machine Pecan Gatherer: Luca CAIholesterol.total/Cholesterol in HDL [Mass ratio]5.2 {ratio}High<5.0Quest DiagnosticsComment on above:Order Comment: FASTING:YES FASTING: YESPerformed By: #### 7600 #### [facility] [address], [address] [place] [address] Machine Pecan Gatherer: Luca BLACKWOOD HDL ECTZNRYNTXR884 mg/dL (calc)High<130 Quest DiagnosticsComment on above:Order Comment: FASTING:YES FASTING: YESResult Comment: For patients with diabetes plus 1 major ASCVD risk factor, treating to a non-HDL-C goal of <100 mg/dL (LDL-C of <70 mg/dL) is considered a therapeutic option.Performed By: #### 7600 #### [facility] [address], [address] [place] [address] Machine Pecan Gatherer: Luca Guajardo MDTriglyceride [Mass/Vol]247 mg/dLHigh<150Quest DiagnosticsComment on above:Order Comment: FASTING:YES FASTING: YESResult Comment: If a non-fasting specimen was collected, consider repeat triglyceride testing on a fasting specimen if clinically indicated. Crista et al. J. of Clin. Lipidol. 2015;9:129-169.Performed By: #### 7600 #### [facility] [address], [address] [place] [address] Machine Pecan Gatherer: Luca CORRAL 2 Extremitieson 59-84-3907VKTEHawthorn Children's Psychiatric Hospital NOMS HealthcareNVC - Nerveson 57-48-9024NNINHermann Area District Hospital Cervical spine WO contraston 64-59-3091Zni[address] [address] Magnetic Resonance Report Signed Patient: KEITH WASHINGTON MR#: [id number] : 1970 Acct:[id number] Age/Sex: 54 / F ADM Date: 08/12/24 Loc: MRI Attending Dr: Michelle FERRARO Ordering Physician: Michelle Cuenca Date of Service: 08/12/24 Procedure(s): MR cervical spine wo con Accession Number(s): [id number] cc: ERIK SMITH ; Michelle Cuenca [address] [address] Patient Name: KEITH WASHINGTON MRN: [id number] date: 1970 Sex: F Assigned Patient Location: MRI Current Patient Location: MRI Accession/Order Number: [id number] Exam Date: 08/12/2024 14:42 Report Date: 08/14/2024 11:52 At the request of: MICHELLE CUENCA Procedure: MR cervical spine wo con EXAM: [...] No convincing cord signal abnormalities evident given motion artifact degrading evaluation on this study. C2-C3: There is mild to moderate left and mild right-sided facet arthropathy. There is no focal disc herniation. No central or foraminal stenosis is evident. C3-C4: There is a mild disc bulge and mild to moderate facet arthropathy without central or foraminal stenosis. C4-C5: There is a minimal disc bulge and uncovertebral spurring with mild to moderate facet arthropathy. There is no central or foraminal stenosis. C5-C6: There is a small central disc protrusion and mild uncovertebral spurring with mild to moderate facet arthropathy. There is no central or foraminal stenosis. C6-C7: No focal disc herniation is evident. There is no central or foraminal stenosis. MR/MR cervical spine wo con IMPRESSION: 1. Discogenic change and mild to moderate facet arthropathy in the cervical spine as described above. No central or foraminal stenosis is evident. 2. No fracture or spondylolysis Electronically authenticated by: MITCHELL KEARNEY Date: 08/14/2024 11:52 Dictated By: Mitchell Kearney M.D. Signed By: 08/14/24 1155 DD/ 1152 TD/TT: Casino Floor Runner:NICKadiology, Radiologist, - 08/14/2024 [place] [address] Magnetic Resonance Report Signed Patient: KEITH WASHINGTON MR#: [id number] : 1970 Acct:[id number] Age/Sex: 54 / F ADM Date: 08/12/24 Loc: MRI Attending Dr: Michelle FERRARO Ordering Physician: Michelle Cuenca Date of Service: 08/12/24 Procedure(s): MR cervical spine wo con Accession Number(s): [id number] cc: ERIK SMITH ; Michelle Cuenca [place] [address] Patient Name: KEITH WASHINGTON MRN: [facility]:[id number] date: 1970 Sex: F Assigned Patient Location: MRI Current Patient Location: MRI Accession/Order Number: [id number] Exam Date: 08/12/2024 14:42 Report Date: 08/14/2024 11:52 At the request of: MICHELLE CUENCA Procedure: MR cervical spine wo con EXAM: [...] No convincing cord signal abnormalities evident given motion artifact degrading evaluation on this study. C2-C3: There is mild to moderate left and mild right-sided facet arthropathy. There is no focal disc herniation. No central or foraminal stenosis is evident. C3-C4: There is a mild disc bulge and mild to moderate facet arthropathy without central or foraminal stenosis. C4-C5: There is a minimal disc bulge and uncovertebral spurring with mild to moderate facet arthropathy. There is no central or foraminal stenosis. C5-C6: There is a small central disc protrusion and mild uncovertebral spurring with mild to moderate facet arthropathy. There is no central or foraminal stenosis. C6-C7: No focal disc herniation is evident. There is no central or foraminal stenosis. MR/MR cervical spine wo con IMPRESSION: 1. Discogenic change and mild to moderate facet arthropathy in the cervical spine as described above. No central or foraminal stenosis is evident. 2. No fracture or spondylolysis Electronically authenticated by: MITCHELL KEARNEY Date: 08/14/2024 11:52 Dictated By: Mitchell Kearney M.D. Signed By: 08/14/24 1155 DD/ 1152 TD/TT: Casino Floor Runner: [facility] Psychiatric HospitalRadiology Study observation (narrative)[facility] Cervical spine WO contrastOrdered By: Radiologist Radiology on 85-39-5985DVGBHawthorn Children's Psychiatric Hospital Work Phone: Ptosis Visual Field, Limited - OU - Both Eyeson 12-15-9415Pfibk Eye Threshold was LVC. Strategy was Full [...] of >40 degrees that resolves with manual elevationReplaced by [facility]Care System AnsonRadiology Study observation (narrative)[facility] Abdomen WO and W contrast Jayden 34-77-7581[place] [address] Magnetic Resonance Report Signed Patient: KEITH WASHINGTON MR#: [id number] : 1970 Acct:[id number] Age/Sex: 53 / F ADM Date: 05/09/24 Loc: MRI Attending Dr: JULIA CHEN Ordering Physician: JULIA CHEN Date of Service: 05/09/24 Procedure(s): MR abdomen wo/w con Accession Number(s): [id number] cc: ERIK SMITH ; JULIA CHEN [address] [address] Patient Name: KEITH WASHINGTON MRN: [id number] date: 1970 Sex: F Assigned Patient Location: MRI Current Patient Location: Accession/Order Number: [id number] Exam Date: 05/09/2024 13:30 Report Date: 05/13/2024 [...] atrophy, abnormal density, or significant focal lesion. BILIARY: The gallbladder is absent PANCREAS: Identified in the head of the pancreas is an area of signal abnormality measuring 2.7 x 2.2 cm in axial image #16 and 3.6 cm in craniocaudal extent, coronal image 15. This lesion has lobular margins. This lesion does enhance measures between 1000 501,670 [...] Lung bases not well assessed with MRI. OTHER: Negative. 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 Stability over time suggests a benign process however this lesion does enhance, the etiology is indeterminate. Electronically authenticated by: HUMPHREY DEMPSEY Date: 05/13/2024 07:20 Dictated By: Humphrey Dempsey M.D. Signed By: 05/13/24 0722 DD/ 9 TD/TT: Casino Floor Runner:TBHRadiology, Radiologist, - 05/13/2024 [place] [address] Magnetic Resonance Report Signed Patient: KEITH WASHINGTON MR#: [id number] : 1970 Acct:[id number] Age/Sex: 53 / F ADM Date: 05/09/24 Loc: MRI Attending Dr: JULIA CHEN Ordering Physician: JULIA CHEN Date of Service: 05/09/24 Procedure(s): MR abdomen wo/w con Accession Number(s): [id number] cc: ERIK SMITH ; JULIA CHEN [place] [address] Patient Name: KEITH WASHINGTON MRN: [id number] date: 1970 Sex: F Assigned Patient Location: MRI Current Patient Location: Accession/Order Number: [id number] Exam Date: 05/09/2024 13:30 Report Date: 05/13/2024 [...] atrophy, abnormal density, or significant focal lesion. BILIARY: The gallbladder is absent PANCREAS: Identified in the head of the pancreas is an area of signal abnormality measuring 2.7 x 2.2 cm in axial image #16 and 3.6 cm in craniocaudal extent, coronal image 15. This lesion has lobular margins. This lesion does enhance measures between 1000 501,670 [...] Lung bases not well assessed with MRI. OTHER: Negative. 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 Stability over time suggests a benign process however this lesion does enhance, the etiology is indeterminate. Electronically authenticated by: HUMPHREY DEMPSEY Date: 05/13/2024 07:20 Dictated By: Humphrey Dempsey M.D. Signed By: 05/13/24721 DD/ 9 TD/TT: Casino Floor Runner: [facility] Psychiatric HospitalRadiology Study observation (narrative)[facility] Abdomen WO and W contrast IVOrdered By: Radiologist Radiology on 62-22-8982CJSH [employer] Work Phone: XR CHEST 2Von 62-13-1798[place]eb[place] [address] XRay Report Signed Patient: KEITH WASHINGTON MR#: [id number] : 1970 Acct:[id number] Age/Sex: 53 / F ADM Date: 09/04/23 Loc: RAD Attending Dr: JULIA CHEN Ordering Physician: JULIA CHEN Date of Service: 09/04/23 Procedure(s): XR chest 2V Accession Number(s): [id number] cc: ERIK SMITH ; JULIA CHEN [place] [id number] Patient Name: KEITH WASHINGTON MRN: [id number] date: 1970 Sex: F Assigned Patient Location: [facility] Current Patient Location: [facility] Accession/Order Number: [id number] Exam Date: 09/04/2023 09:57 Report Date: 09/04/2023 [...] 11:12 Dictated By: Scotty Razo M.D. Signed By: 09/04/231113 DD/ 11 TD/TT: Casino Floor Runner:NEOHRadiology, Radiologist, - 11/28/2023 [place] [address] XRay Report Signed Patient: KEITH WASHINGTON MR#: [id number] : 1970 Acct:[id number] Age/Sex: 53 / F ADM Date: 09/04/23 Loc: [facility] Attending Dr: JULIA CHEN Ordering Physician: JULIA CHEN Date of Service: 09/04/23 Procedure(s): XR chest 2V Accession Number(s): [id number] cc: ERIK SMITH ; JULIA CHEN [place] [address] Patient Name: KEITH WASHINGTON MRN: [id number] date: 1970 Sex: F Assigned Patient Location: [facility] Current Patient Location: [facility] Accession/Order Number: [id number] Exam Date: 09/04/2023 09:57 Report Date: 09/04/2023 [...] 11:12 Dictated By: Scotty Razo M.D. Signed By: 09/04/231113 DD/ 1112 TD/TT: Casino Floor Runner: RAM[facility] HealthcareRadiology Study observation (narrative)[facility] HealthcareXR CHEST 2V Ordered By: Radiologist Radiology on 54-02-3494RVVYHawthorn Children's Psychiatric Hospital Work Phone: Physician Orderon 81-34-9428Ltqnzoasi Order [id number]#1.00CD:127NormalLima City HospitalBMPon 61-58-4477Gvedp gap [Moles/Vol]10 mmol/LNormal6-16Lima City HospitalComment on above:Performed By: #### 9411954, 13306941, [id number] #### [facility] [address], [place] [address]Pvrrudi [Mass/Vol]9.1 mg/dLNormal8.9-11.1FBellevue HospitalComment on above:Performed By: #### 8868129, [id number], 7244860 #### [facility] [address], [place] [address]Ecuhiaua [Moles/Vol]104 mmol/NXldgsb324-714EyfxscLima City HospitalComment on above:Performed By: #### 8077686, 59415014, 8170263 #### [facility] [address], [place] [address]GO4 [Moles/Vol]27 mmol/YEtfbej18-05LhdiiaLima City Hospital Comment on above:Performed By: #### 1987413, 68151538, 4133885 #### [facility] [address], [place] [address]Rgodccxycx [Mass/Vol]0.7 mg/dLNormal0.5-1.3FBellevue HospitalComment on above:Performed By: #### 8152697, 19833919, 1744805 #### [facility] [address], [place] [address]Mysyekp [Mass/Vol]136 mg/lTWnnbgi30-865UpcgorLima City HospitalComment on above:Result Comment: If this glucose result represents a fasting glucose, interpretation should refer tothe following reference range: 55-99 mg/dLPerformed By: #### 2584252, 37980813, 3302190 #### [facility] [address], [place] [address]Dhgvlklvr [Moles/Vol]4.4 mmol/LNormal3.5-5.3FBellevue HospitalComment on above:Performed By: #### 1219796, 10177312, 2971386 #### [facility] [address], [place] [address]Fsixxe [Moles/Vol]137 mmol/QLfjmdi296-052MbwbquLima City HospitalComment on above:Performed By: #### 3817096, 72570631, 7911737 #### [facility] [address] [place] [address]Uarq nitrogen [Mass/Vol]8 mg/dLNormal5-21Lima City HospitalComment on above:Performed By: #### 4380315, 28874055, 5734848 #### [facility] [address], [place] [address]Pyhv nitrogen/Creatinine [Mass ratio]11 No MpexcDgxwbm84-26 [facility] City HospitalComment on above:Performed By: #### 9919559, 61806642, 4738011 #### [facility] [address], [place] [address]NLC w/Indiceson 01-92-9902Ixulxdxkcpw distribution width (RBC) [Ratio]14.6 %High10.9-14.2FBellevue HospitalComment on above:Performed By: #### 8925209, 61834376, 2360459 #### [facility] [address], [place] [address]Zyaxgnfgof (Bld) [Volume fraction]43.8 %Onvrxn16.0-46.0Lima City HospitalComment on above:Performed By: #### 2948905, 51207575, 7738970 #### [facility] [address], [place] [address]Usmgsveqyn (Bld) [Mass/Vol]14.9 g/uCQaqazh12.0-16.0Lima City HospitalComment on above:Performed By: #### [id number], [id number], [id number] #### [facility] [address] [place] [address] [id number] (RBC) [Entitic mass]29.2 kfYranhe08.0-34.0[facility] HospitalComment on above:Performed By: #### [id number], [id number], [id number] #### [facility] [address] [place] [address] [id number] (RBC) [Mass/Vol]34.0 g/bVOnpaqo72.4-36.0[facility] HospitalComment on above:Performed By: #### [id number], [id number], [id number] #### [facility] [address] [place] [address] [id number] (RBC) [Entitic vol]86.1 kYEnvhep25.0-100.0[facility] HospitalComment on above:Performed By: #### [id number], [id number], [id number] #### [facility] [address] [place] [address] 31953Zwbnqwmp mean volume (Bld) [Entitic vol]8.3 fLNormal6.4-10.8 [facility] HospitalComment on above:Performed By: #### [id number], [id number], [id number] #### [facility] [address] [place] [address] [id number] (Bld) [#/Vol]229.0 E9/THiorvg373.0-500.0[facility] HospitalComment on above:Performed By: #### [id number], [id number], [id number] #### [facility] [address] [place] [address] 83892JBR (Bld) [#/Vol]5.1 E12/LNormal4.3-5.9[facility] HospitalComment on above:Performed By: #### [id number], [id number], [id number] #### [facility] [address], [place] [address]NBL corrected for nucl RBC Auto (Bld) [#/Vol]8.1 E9/LNormal 4.0-11.0[facility] HospitalComment on above:Performed By: #### [id number], [id number], [id number] #### [facility] [address], [place] [address]SLPCWACWRZfvtaqn By: SYSTEM SYSTEM on 73-29-7281Vzvks gap [Moles/Vol]10 mmol/LNormal6 - 16 mEq/LFTMC RemisolCalcium [Mass/Vol]9.1 mg/dL Normal8.9 - 11.1 mg/dLFTMC RemisolChloride [Moles/Vol]104 mmol/ENmmgld597 - 111 mmol/LFTMC RemisolCO2 [Moles/Vol]27 mmol/BZapepl70 - 31 mmol/LFTMC Remisol Creatinine [Mass/Vol]0.7 mg/dLNormal0.5 - 1.3 mg/dLFTMC RemisolGFR/1.73 sq M.predicted among non-blacks MDRD (S/P/Bld) [Vol rate/Area]103 mL/min/1.73 m2 Normal>=59mL/min/1.73 m2[facility] Chem SGlucose [Mass/Vol]136 mg/dWYnwasz64 - 199 mg/dLFTMC RemisolPotassium [Moles/Vol]4.4 mmol/LNormal3.5 - 5.3 mmol/LFTMC RemisolSodium [Moles/Vol]137 mmol/RZxrdkm026 - 145 mmol/LFTMC RemisolUrea nitrogen [Mass/Vol]8 mg/dLNormal5 - 21 mg/dLFTMC RemisolUrea nitrogen/Creatinine [Mass ratio]11 mg/veMrrzfe25 - 20[facility] RemisolConsent for Treatmenton 05-09-2023 Consent for [id number]#1.00CD:127Normal [facility] HospitalHEMATOLOGYOrdered By: Dax Wolfe on 15-69-3035Yljawhmardi distribution width (RBC) [Ratio]14.6 %High10.9 - 14.2 % [facility] HemeAutoSSHematocrit (Bld) [Volume fraction]43.8 %Fzlkok07.0 - 46.0 %[facility] HemeAutoSSHemoglobin (Bld) [Mass/Vol]14.9 g/eZZjehku49.0 - 16.0 gm/dLFTMC HemeAutoSSMCH (RBC) [Entitic mass]29.2 anPozahp34.0 - 34.0 pgFTMC HemeAutoSSMCHC (RBC) [Mass/Vol]34.0 g/yWMqktzw52.4 - 36.0 gm/dLFTMC HemeAutoSSMCV (RBC) [Entitic vol]86.1 lDKzfber99.0 - 100.0 fLFTMC HemeAutoSSPlatelet mean volume (Bld) [Entitic vol]8.3 fLNormal6.4 - 10.8 fLFTMC HemeAutoSSPlatelets (Bld) [#/Vol]229.0 E9/CCyvkjf391.0 - 500.0 E9/LFTMC HemeAutoSSRBC (Bld) [#/Vol]5.1 E12/LNormal4.3 - 5.9 E12/LFTMC HemeAutoSSWBC corrected for nucl RBC Auto (Bld) [#/Vol]8.1 E9/LNormal4.0 - 11.0 E9/LFTMC HemeAutoSSeGFRon 13-52-6974JMJ/1.73 sq M.predicted among non-blacks MDRD (S/P/Bld) [Vol rate/Area]103 mL/min/1.73 m2 Normal>=59[facility] City HospitalComment on above:Order Comment: Order added by Discern Expert.Result Comment: Chronic kidney disease could be indicated at eGFR's of less than 60 mL/min/1.73m2. Kidney failure is indicated at less than 15 mL/min/1.73m2.Performed By: #### [id number], [id number], [id number] #### [facility] [address] [place], [place] [address]KYJ ABDOMEN WO W CONon 70-81-2362TES ABDOMEN WO W CONEXAM: MRI ABDOMEN WO W CON HISTORY: Cyst of pancreas COMPARISON: [...] Spleen: Unremarkable. Adrenal Glands: Unremarkable. Kidneys: Unremarkable. Gastrointestinal/Peritoneum: No acute abnormality. Vascular: Unremarkable. Lymph Nodes: [...] Electronically authenticated by: AMAN THOMAS Date: 2022-08-15 09:36NoWadsworth-Rittman HospitalCREATININE 87-48-3488Wkfqexgfrn [Mass/Vol]0.79 mg/dLNormal 0.55-1.02[facility] CenterComment on above:Performed By: #### CATHIL #### [facility] [address] [address] [address] Steven TeranGFR-AF NIGERIAN>60Normal>=60The [facility] SouthComment on above:Performed By: #### CATHIL #### [facility] [address] [address] [address] Steven TeranGFR-NON AF NIGERIAN>60Normal>=60The [facility] SouthComment on above:Performed By: #### CATHIL #### [facility] [id number] Steven SimonUS PELVIS AND TRANSVAGon [id number] PELVIS AND TRANSVAG EXAMINATION: US PELVIS AND [...] No acute abnormality Electronically authenticated by: HUMPHREY DEMPSEY Date: 2022-07-24 07:22NoWadsworth-Rittman HospitalXR CHEST 2 Von [id number] CHEST 2 VEXAM: XR CHEST 2 V HISTORY: Cough. COMPARISON: 04/13/2022 TECHNIQUE: Frontal and lateral chest FINDINGS: Heart and vascularity are unremarkable. Lungs are expanded and free of focal infiltrates. No acute bony abnormality is appreciated. IMPRESSION: No acute heart or lung disease identified. Electronically authenticated by: HUMPHREY ENNIS Date: 2022-04-20 07:59NoWadsworth-Rittman HospitalCovid-19 PCR (CVDTBH)on 96-65-7879HJRV-CoV-2 (COVID-19) RNA TATIANA+probe Ql (Unsp spec)Not detectedNormalNOT DETECTEDThe [facility] Comment on above:Result Comment: When diagnostic testing is negative, the [...] for this test is supported by the Pharmacist'S Aide of Health and Human Service's declaration that circumstances exist to justify the emergency use of in vitro diagnostics for the detection and/or diagnosis of the virus that causes COVID-19. This EUA will remain in effect for the duration of the COVID-19 declaration justifying emergency of IVDs, unless it is terminated or revoked by the FDA (after which the test may no longer be used).Performed By: #### GIPBRITTANYL #### [facility] [address] [place] [address] Dr. Steven SimonXR CHEST 1 Von [id number] CHEST 1 VEXAMINATION: XR CHEST 1 V HISTORY: COUGH COMPARISON: 12/29/2021 TECHNIQUE: [...] No acute disease. Electronically authenticated by: HUMPHREY DEMPSEY Date: 2022-04-13 10:15NormalUniversity Hospitals Beachwood Medical CenterGIARDIA LAMBLIA AND CRYPTO DETECTIONon 04-11-2022 Cryptosporidium EIANegativeNormalNegativeUniversity Hospitals Beachwood Medical CenterComment on above: Performed By: #### FELIPA #### [facility] [address] [place] [address] Dr. Steven mercado Ag, EIANegativeNormalNegativeUniversity Hospitals Beachwood Medical CenterComment on above:Performed By: #### FELIPA #### [facility] [address] [place] [address] Dr. Steven Augustin AND PARASITE EXAMINATIONon 2O AND P Exam, Formalin OnlyFinal reportGreene Memorial HospitalComment on above:Result Comment: Reference Range: None Seen No PVA preserved specimen received. For optimal O and P results we suggest the use of O and P kits containing both formalin and PVA. These kits are available from your human services manager.Performed By: #### ERUR #### [facility] [address] [place] [address] Dr. Steven Dimas 1CommentNoWadsworth-Rittman HospitalComment on above:Result Comment: No ova, cysts, or parasites seen. . One negative specimen does not rule out the possibility of a parasitic infection.Performed By: #### ERUR #### [facility] [address] [place] [address] Dr. Steven Johnson AUTO DIFFon [id number] #0.0 103/ulNormal0.0-0.1The [facility] SouthComment on above:Performed By: #### CBC #### [facility] [address] [place] [address] Dr. Steven SimonBasophils/100 WBC (Bld)0.2 %Normal0.2-2.0[facility] Comment on above:Performed By: #### CBC #### [facility] [address] [place] [address] Dr. Steven Nickerson #0.0 103/ulNormal0.0-0.7The [facility] SouthComment on above: Performed By: #### CBC #### [facility] [address] [place] [address] Dr. Steven Teranosinophils/100 WBC (Bld)0.6 %Critically low0.9-7.0The [facility] on above:Performed By: #### CBC #### [facility] [address] [place] [address] Dr. Steven Teranrythrocyte distribution width (RBC) [Ratio]13.8 %Dvcuyb53.0-15.0 The [facility] SouthComment on above:Performed By: #### CBC #### [facility] [address] [place] [address] Dr. Steven SimonHematocrit (Bld) [Volume fraction]46.6 %Mlgvex64.0-48.0The [facility] on above:Performed By: #### CBC #### [facility] [address] [place] [address] Dr. Steven SimonHemoglobin (Bld) [Mass/Vol]14.9 g/hVBgstwk16.0-16.0The [facility] on above:Performed By: #### CBC #### [facility] [address] [address] [address] Steven Baird #0.02 10e3/ulNormal0.00-0.03The [facility] on above:Performed By: #### CBC #### [facility] [address] [place] [address] Dr. Steven Baird %0.3 %Normal0.0-0.5The [facility] on above: Performed By: #### CBC #### [facility] [address] [place] [address] Dr. Steven Kenyon #1.4 103/ulNormal1.2-3.8The [facility] on above:Performed By: #### CBC #### [facility] [address] [place] [address] Dr. Steven Hernandezhocytes/100 WBC (Bld)21.4 %Bokxni21.5-60.0The [facility] on above:Performed By: #### CBC #### [facility] [address] [place] [address] Dr. Steven TranUAL DIFF REQNONormalThe [facility] on above: Performed By: #### CBC #### [facility] [address] [place] [address] Dr. Steven Bettencourt (RBC) [Entitic mass]28.9 fnUmsfgs62.7-34.0The [facility] on above:Performed By: #### CBC #### [facility] [address] [place] [address] Dr. Steven Bettencourt (RBC) [Mass/Vol]32.0 g/xSYaqexc42.9-35.2The [facility] on above:Performed By: #### CBC #### [facility] [address] [place] [address] Dr. Steven Bettencourt (RBC) [Entitic vol]90.5 wKRuklhm61.0-99.0The [facility] HospitalComment on above:Performed By: #### CBC #### [facility] [address] [address] [address] Steven Lim #0.9 103/ulCritically high0.3-0.8The [facility] Comment on above:Performed By: #### CBC #### [facility] [address] [address] [address] Steven Dunnocytes/100 WBC (Bld)13.7 %Critically high1.7-12.0The [facility] SouthComment on above:Performed By: #### CBC #### [facility] [address] [address] [address] Steven Goldsmith #4.1 103/ulNormal1.4-6.5The [facility] SouthComment on above:Performed By: #### CBC #### [facility] [address] [place] [address] Dr. Steven Parkutrophils/100 WBC (Bld)63.8 %Igczqr48.0-75.0The [facility] SouthComment on above:Performed By: #### CBC #### [facility] [address] [place] [address] Dr. Steven Rowley mean volume (Bld) [Entitic vol]9.9 fLNormal9.5-13.5The [facility] SouthComment on above:Performed By: #### CBC #### [facility] [address] [place] [address] Dr. Steven SimonPLT195 103/mwVzkkhs781-340Pof [facility] SouthComment on above: Performed By: #### CBC #### [facility] [address] [place] [address] Dr. Steven SimonRBC5.15 106/ulNormal4.20-5.40The [facility] SouthComment on above:Performed By: #### CBC #### [facility] [address] [place] [address] Dr. Steven SimonWBC6.4 103/ulNormal4.0-11.0The [facility] HospitalComment on above: Performed By: #### CBC #### [facility] [address] [place] [address] Dr. Steven Zhouvid-19 PCR (CVDTB)on 75-95-3163RNLB-CoV-2 (COVID-19) RNA TATIANA+probe Ql (Unsp spec)Not detectedNormalNOT DETECTEDThe [facility] Comment on above:Result Comment: When diagnostic testing is negative, the [...] for this test is supported by the Cecil of Health and Human Service's declaration that circumstances exist to justify the emergency use of in vitro diagnostics for the detection and/or diagnosis of the virus that causes COVID-19. This EUA will remain in effect for the duration of the COVID-19 declaration justifying emergency of IVDs, unless it is terminated or revoked by the FDA (after which the test may no longer be used).Performed By: #### CVDTBH #### [facility] [address] [place] [address] Dr. Steven SimonGI PANEL (PCR)on 51-65-6504Chketskopq F 40/41Not detectedNormal NOT DETECTEDThe [facility] SouthComment on above:Performed By: #### GIPANEL #### [facility] [address] [place] [address] Dr. Steven SimonAstrovirusNot detectedNormalNOT DETECTEDUniversity [facility]als [facility] Comment on above:Performed By: #### GIPANEL #### [facility] [address] [place] [address] Dr. Steven Patel. Diff toxin A/BNot detectedNormalNOT DETECTEDThe [facility] SouthComment on above:Performed By: #### GIPANEL #### [facility] [address] [place] [address] Dr. Steven NesspylobacterNot detectedNormalNOT DETECTEDThe [facility] Comment on above:Performed By: #### GIPANEL #### [facility] [address] [address] [address] Steven SimonCryptosporidiumNot detectedNormalNOT DETECTEDThe [facility] SouthComment on above:Performed By: #### GIPANEL #### [facility] [address] [address] [address] Steven Shipleyos. CayetanensisNot detectedNormalNOT DETECTEDThe [facility] SouthComment on above:Performed By: #### GIPANEL #### [facility] [address] [address] [address] Steven Urbina Coli M495Zoq ApplicableNormalNot ApplicableThe [facility] SouthComment on above:Performed By: #### GIPANEL #### [facility] [address] [address] [address] Steven Teran. histolyticaNot detectedNormalNOT DETECTEDThe [facility] Comment on above:Performed By: #### GIPANEL #### [facility] [address] [address] [address] Steven TeranAECNot detectedNormalNOT DETECTEDThe [facility] SouthComkalamazoo psychiatric hospital on above:Performed By: #### GIPANEL #### [facility] [address] [address] [address] Steven TeranIECNot detectedNormalNOT DETECTEDThe [facility] SouthComment on above:Performed By: #### GIPANEL #### [facility] [address] [address] [address] Steven TeranPECNot detectedNormalNOT DETECTEDThe [facility] SouthComkalamazoo psychiatric hospital on above:Performed By: #### GIPANEL #### [facility] [address] [address] [address] Steven TeranTECNaltaf detectedNormalNOT DETECTEDThe [facility] SouthComment on above:Performed By: #### GIPANEL #### [facility] [address] [address] [address] Steven Herrera LambliaNot detectedNormalNOT DETECTEDUniversity [facility]als [facility] Comment on above:Performed By: #### AGUILAANEL #### [facility] [address] [address] [address] Steven FOSTERPASSHighland District HospitalComment on above:Performed By: #### AGUILAANEL #### [facility] [address] [address] [address] Steven Mckeon [facility] HEADERGI PANEL [facility] Comment on above:Performed By: #### AGUILAANEL #### [facility] [address] [address] [address] Steven Regalado ECOLIGI PANEL DIARRHEAGENIC E.COLI / SHIGELLAGreene Memorial HospitalComment on above:Performed By: #### AGUILAANEL #### [facility] [address] [address] [address] Steven Regalado INFOSEE [facility] HospitalComment on above: Result Comment: EAEC- Enteroaggregative E. Coli EPEC- Enteropathogenic E. Coli ETEC- Enterotoxigenic E. Coli lt/st STEC- Shigella-like toxin-producing E. Coli stx1/stx2 EIEC- Shigella/Enteroinvasive E. ColiPerformed By: #### AGUILAANEL #### [facility] [address] [place] [address] Dr. Steven Regalado PARASITESGI PANEL PARASITESGreene Memorial Hospital Comment on above:Performed By: #### AGUILAANEL #### [facility] [address] [address] [address] Steven Regalado VIRUSGI PANEL VIRUSESGreene Memorial HospitalComment on above:Performed By: #### AGUILAANEL #### [facility] [address] [address] [address] Steven Duronvirus GI/GIINot detectedNormalNOT DETECTEDUniversity Hospitals Beachwood Medical CenterComment on above:Performed By: #### AGUILAANEL #### [facility] [address] [address] [address] Steven Montemayor ShigelloidesNot detectedNormalNOT DETECTEDThe [facility] SouthComment on above:Performed By: #### GIPANEL #### [facility] [address] [address] [address] Steven SimonRotavirus ADetectedAbnormalNOT DETECTEDThe [facility] Comment on above:Performed By: #### GIPANEL #### [facility] [address] [address] [address] Steven SimonSalmonellaNot detectedNormalNOT DETECTEDThe [facility] Comment on above:Performed By: #### GIPANEL #### [facility] [address] [address] [address] Steven SimonSapovirusNot detectedNormalNOT DETECTEDThe [facility] Comment on above:Performed By: #### GIPANEL #### [facility] [address] [address] [address] Steven SimonSTECNot detectedNormalNOT DETECTEDThe [facility] SouthComment on above:Performed By: #### AGUILAANEL #### [facility] [address] [address] [address] Steven InterianoioNot detectedNormalNOT DETECTEDThe [facility] SouthComment on above:Performed By: #### AGUILAANEL #### [facility] [address] [address] [address] Steven Interianoio CholeraNot detectedNormalNOT DETECTEDThe [facility] Comment on above:Performed By: #### GIPANEL #### [facility] [address] [address] [address] Steven Scott. EnterocoliticaNot detectedNormalNOT DETECTEDThe [facility] SouthComment on above:Performed By: #### GIPANEL #### [facility] [address] [address] [address] Steven SimonLACTATE/LACTIC ACIDon 82-57-9934Zalikul [Moles/Vol]0.6 mmol/L Normal0.4-1.9The [facility] SouthComment on above:Performed By: #### GIPANEL #### [facility] [address] [address] [address] Steven Chatman 14(COMP METB)on 98-55-6448Muzkxku [Mass/Vol]3.3 g/dL Critically low3.4-5.0The [facility] SouthComment on above:Performed By: #### ERUR #### [facility] [address] [place] [address] Dr. Steven SimonAlbumin/Globulin [Mass ratio]0.9 {ratio}NormalThe [facility] SouthComment on above:Performed By: #### ERUR #### [facility] [address] [place] [address] Dr. Steven JacksonP [Catalytic activity/Vol]63 U/OIifwwe98-417Ytj [facility] SouthComment on above:Performed By: #### ERUR #### [facility] [address] [place] [address] Dr. Steven Lloyd [Catalytic activity/Vol]26 U/MQshfwq25-98Mir [facility] SouthComment on above:Performed By: #### ERUR #### [facility] [address] [place] [address] Dr. Steven Humphrey gap [Moles/Vol]12.2 mmol/LNormalThe [facility] Comment on above:Performed By: #### ERUR #### [facility] [address] [place] [address] Dr. Steven SimonAST [Catalytic activity/Vol]18 U/FVjzmpx03-41Ebf [facility] SouthComment on above:Performed By: #### ERUR #### [facility] [address] [place] [address] Dr. Steven SimonBilirubin [Mass/Vol]0.6 mg/dLNormal0.2-1.0The [facility] Comment on above:Performed By: #### ERUR #### [facility] [address] [place] [address] Dr. Steven SimonCalcium [Mass/Vol]7.6 mg/dLCritically low8.5-10.1The [facility] SouthComment on above:Performed By: #### ERUR #### [facility] [address] [address] [address] Steven SimonChloride [Moles/Vol]102 mmol/XIqcawb43-941Bod [facility] Comment on above:Performed By: #### ERUR #### [facility] [address] [address] [address] Steven SimonCO2 [Moles/Vol]24.6 mmol/QDhrjgz12.0-32.0The [facility] Comment on above:Performed By: #### ERUR #### [facility] [address] [place] [address] Dr. Steven SimonCreatinine [Mass/Vol]0.71 mg/dLNormal0.55-1.02The [facility] SouthComment on above:Performed By: #### ERUR #### [facility] [address] [place] [address] Dr. Steven TeranGFR-AF NIGERIAN>60Normal>=60The [facility] SouthComment on above:Performed By: #### ERUR #### [facility] [address] [place] [address] Dr. Steven TeranGFR-NON AF NIGERIAN>60Normal>=60The [facility] SouthComment on above:Performed By: #### ERUR #### [facility] Laboratory [address] [address] [address] Steven SimonGlobulin (S) [Mass/Vol]3.6 g/dLNormalThe [facility] SouthComment on above:Performed By: #### ERUR #### [facility] [address] [address] [address] Steven SimonGlucose [Mass/Vol]146 mg/dLCritically ovei22-386Pwm [facility] SouthComment on above:Performed By: #### ERUR #### [facility] Laboratory [address] [place] [address] Dr. Steven SimonPotassium [Moles/Vol]3.8 mmol/LNormal3.5-5.1The [facility] Comment on above:Performed By: #### ERUR #### [facility] [address] [address] [address] Steven SimonProtein [Mass/Vol]6.9 g/dLNormal6.4-8.2[facility] Comment on above:Performed By: #### ERUR #### [facility] [address] [address] [address] Steven SimonSodium [Moles/Vol]135 mmol/LCritically lvo275-012Nwn [facility] SouthComment on above:Performed By: #### ERUR #### [facility] [address] [place] [address] Dr. Steven SimonUrea nitrogen [Mass/Vol]7.0 mg/dLNormal7.0-18.0[facility] CenterComment on above:Performed By: #### ERUR #### [facility] Laboratory [address] [place] [address] Dr. Steven Joe nitrogen/Creatinine [Mass ratio]9.9 mg/mgNoWadsworth-Rittman HospitalComment on above:Performed By: #### ERUR #### [facility] [address] [place] [address] Dr. Steven SimonXR CHEST 2 Von [id number] CHEST 2 VEXAMINATION: XR CHEST 2 V HISTORY: Cough COMPARISON: XR chest [...] Electronically authenticated by: MADISON DOTY Date: 2021-12-29 08:02NoWadsworth-Rittman HospitalCovid-19 PCR (CVDTBH)on [id number]-CoV-2 (COVID-19) RNA TATIANA+probe Ql (Unsp spec)Not detectedNormalNOT DETECTEDThe [facility] Comment on above:Result Comment: This test is not yet approved or cleared by the [place] FDA. When there are no FDA-approved or cleared tests available, and other criteria are met, FDA can make tests available under an emergency access mechanism called an Emergency Use Authorization (EUA). The EUA for this test is supported by the Pharmacist'S Aide of Health and Human Service's (HHS's) declaration that circumstances exist to justify the emergency use of in vitro diagnostics for the detection and/or diagnosis of the virus that causes COVID- 19. This EUA will remain in effect (meaning [...] of clinical signs and symptoms consistent with SARS-CoV-2.Performed By: #### CVDTBH #### [facility] [address] [place] [address] Dr. Steven De Diosalbumin (with Creat)on 53-74-1160bLBW<1.2LowNcommunity medical center-clovisn [facility] HospitalComment on above:Result Comment: Unable to calculate mALB/Crea ratio, mALB is <1.2 mg/dL mALB reference range not established.Performed By: #### mALBC #### [facility] [address], [place] [id number] mg/mKXsyrpw91-593Fbbjnatu Baptist HospitalAdvertising Production Manager Comment on above:Performed By: #### mALBC #### [facility] [address], [place] [id number] Metabolic Panelon [id number] [Mass/Vol] 4.3 g/dLNormal3.6-5.1Northn [facility] SpecialistComment on above:Performed By: #### CMP, LIPD, TSH reflex FT4 #### [facility] [address], [place] [id number]/Globulin [Mass ratio]2.0 {ratio}Normal1.0-2.5Nonovant health mint hill medical centern [facility] SpecialistComment on above:Performed By: #### CMP, LIPD, TSH reflex FT4 #### [facility] [address], [place] [id number] [Catalytic activity/Vol]64 U/IDxafca71-147Ioqkxmbz [facility] SpecialistComment on above:Performed By: #### CMP, LIPD, TSH reflex FT4 #### [facility] [address], [place] [id number] [Catalytic activity/Vol]30 U/LNormal6-33NoUC [facility] SpecialistComment on above:Result Comment: 08/24/2021 Female reference range changed.Performed By: #### CMP, LIPD, TSH reflex FT4 #### [facility] [address], [place] [id number] gap [Moles/Vol]16 mmol/ZYuulby53-62Ceyfdbfa [facility] SpecialistComment on above:Result Comment: Effective 09/29/2019 reference range changed.Performed By: #### CMP, LIPD, TSH reflex FT4 #### [facility] [address], [place] [id number] [Catalytic activity/Vol]30 U/LNormal9-34NoUC [facility] SpecialistComment on above:Performed By: #### CMP, LIPD, TSH reflex FT4 #### [facility] [address], [place] [id number] [Mass/Vol]0.51 mg/dLNormal0.30-1.20NoUC [facility] SpecialistComment on above:Performed By: #### CMP, LIPD, TSH reflex FT4 #### [facility] [address], [place] [id number]/CREA14 RatioNormal6-22NoUC [facility] Specialist Comment on above:Performed By: #### CMP, LIPD, TSH reflex FT4 #### [facility] [address], [place] [id number] [Mass/Vol]9.5 mg/dLNormal8.6-10.2[facility] SpecialistComment on above:Performed By: #### CMP, LIPD, TSH reflex FT4 #### [facility] [address], [place] [id number] [Moles/Vol]102 mmol/BRzfvkq69-473Axvpwnxx [facility] SpecialistComment on above:Performed By: #### CMP, LIPD, TSH reflex FT4 #### [facility] [address], [place] [id number] [Moles/Vol]25 mmol/YOfmdsj07-65Kipwflaq [facility] SpecialistComment on above:Performed By: #### CMP, LIPD, TSH reflex FT4 #### [facility] [address], [place] [id number] [Mass/Vol]0.8 mg/dLNormal0.6-1.4NoUC [facility] SpecialistComment on above:Performed By: #### CMP, LIPD, TSH reflex FT4 #### [facility] [address], [place] [id number] mL/min/1.54h2Bhfovx>60NortPremier Health Miami [facility] Hospital SpecialistComment on above:Performed By: #### CMP, LIPD, TSH reflex FT4 #### [facility] [address], [place] [id number] mL/min/1.89z6Jouxrf>60NoUC [facility] SpecialistComment on above:Performed By: #### CMP, LIPD, TSH reflex FT4 #### [facility] [address], [place] [id number] (S) [Mass/Vol]2.2 g/dLNormal1.9-3.7NoUC [facility] SpecialistComment on above:Performed By: #### CMP, LIPD, TSH reflex FT4 #### [facility] [address], [place] [id number] [Mass/Vol]128 mg/gQJcim37-40Buovezqb [facility] SpecialistComment on above:Result Comment: For FASTING Glucose --- ADA reference ranges: Normal 65-99 mg/dl Prediabetes 100-125 Diabetes >/= 126Performed By: #### CMP, LIPD, TSH reflex FT4 #### [facility] [address], [place] [id number] [Moles/Vol]4.7 mmol/LNormal3.5-5.5NoUC [facility] SpecialistComment on above:Performed By: #### CMP, LIPD, TSH reflex FT4 #### [facility] [address], [place] [id number] [Mass/Vol]6.5 g/dLNormal6.1-8.1[facility] SpecialistComment on above:Performed By: #### CMP, LIPD, TSH reflex FT4 #### [facility] [address], [place] [id number] [Moles/Vol]139 mmol/QSwnaka793-158Qbkghnyy [facility] SpecialistComment on above:Performed By: #### CMP, LIPD, TSH reflex FT4 #### [facility] [address], [place] [id number] nitrogen [Mass/Vol]10 mg/dLNormal7-25NoUC [facility] SpecialistComment on above:Performed By: #### CMP, LIPD, TSH reflex FT4 #### [facility] [address], [place] [id number] A1Con 10-88-8697JPH540.72NormalNoUC [facility] SpecialistComment on above:Performed By: #### A1C #### [facility] [address], [place] [id number] (Bld) [Mass fraction]6.6 %High4.0-6.0NoUC [facility] SpecialistComment on above:Performed By: #### A1C #### [facility] [address], [place] [id number] Panelon 24-76-2486Eohlhkfvxrv [Mass/Vol]245 mg/dLHigh 125-200NoUC [facility] SpecialistComment on above:Result Comment: Low risk < 200mg/dL Borderline risk 201-239 mg/dl High risk > or equal to 240Performed By: #### CMP, LIPD, TSH reflex FT4 #### [facility] [address], [place] [id number] in HDL [Mass/Vol]42 mg/dLNormal>40NortPremier Health [facility] Hospital SpecialistComment on above:Result Comment: High Cardiovascular Risk HDL <40 mg/dL Low Cardiovascular Risk HDL > or equal to 60 mg/dlPerformed By: #### CMP, LIPD, TSH reflex FT4 #### [facility] [address], [place] [id number] in LDL [Mass/Vol]168 mg/dLNormalNoUC [facility] SpecialistComment on above:Result Comment: LDL ATP III CLASSIFICATION LDL less than 100 mg/dl Optimal LDL 100-129 mg/dl Near or above optimal LDL 130-159 Borderline high LDL 160-189 High LDL greater than 189 mg/dl Very HighPerformed By: #### CMP, LIPD, TSH reflex FT4 #### [facility] [address], [place] [id number] in VLDL [Mass/Vol]35 mg/dLNormalNoUC [facility] SpecialistComment on above:Performed By: #### CMP, LIPD, TSH reflex FT4 #### [facility] [address], [place] [id number].total/Cholesterol in HDL [Mass ratio]6 {ratio} NormalNortKettering HealthComment on above:Performed By: #### CMP, LIPD, TSH reflex FT4 #### [facility] [address], [place] [id number] [Mass/Vol]177 mg/tGZzie50-054Kdbjwtjd [facility] SpecialistComment on above:Result Comment: TRIG ATPIII CLASSIFICATIONS TRIG less than 150 mg/dl Normal TRIG 150-199 mg/dl Borderline High TRIG 200-500 mg/dl High TRIG greather than 500 mg/dl Very HighPerformed By: #### CMP, LIPD, TSH reflex FT4 #### [facility] [address], [place] [id number] w/ Reflex to Free T4on 35-18-9622BHA5.949 uIU/mLNormal 0.400-4.500[facility] SpecialistComment on above:Performed By: #### CMP, LIPD, TSH reflex FT4 #### [facility] [address], [place] [id number] PANEL, ACUTEon 73-51-2511UOzUc ScreenNegativeNormal NegativeThe [facility] SouthComment on above:Performed By: #### HEPACUT #### [facility] [address] [place] [address] Dr. Steven Priest A Ab, IgMNegativeNormalNegativeThe [facility] SouthComment on above:Performed By: #### HEPACUT #### [facility] [address] [place] [address] Dr. Steven Fields Core Ab, IgMNegativeNormalNegativeUniversity [facility] Comment on above:Performed By: #### HEPACUT #### [facility] [address] [place] [address] Dr. Steven Brand Virus Ab0.1 s/co ratioNormal0.0-0.9[facility] Comment on above:Result Comment: Negative: < 0.8 Indeterminate: 0.8 - 0.9 Positive: > 0.9 . The CDC recommends that a positive HCV antibody result be followed up with a HCV Nucleic Acid Amplification test (400134). Effective December 05, 2021 Hepatitis Panel (4) will be made non-orderable. [facility] offers order code [id number] Acute Hepatitis.Performed By: #### HEPACUT #### [facility] [address] [place] [address] Dr. Steven Johnson AUTO DIFFon [id number] #0.1 103/ulNormal0.0-0.1The [facility] SouthComment on above:Performed By: #### GIPANEL #### [facility] [address] [place] [address] Dr. Steven SimonBasophils/100 WBC (Bld)1.0 %Normal0.2-2.0[facility] Comment on above:Performed By: #### GIPANEL #### [facility] [address] [place] [address] Dr. Steven Nickerson #0.1 103/ulNormal0.0-0.7The [facility] SouthComment on above: Performed By: #### ISA #### [facility] [address] [place] [address] Dr. Steven Teranosinophils/100 WBC (Bld)1.1 %Normal0.9-7.0The [facility] Comment on above:Performed By: #### ISA #### [facility] [address] [place] [address] Dr. Steven Teranrythrocyte distribution width (RBC) [Ratio]13.2 %Whpzdu94.0-15.0 The [facility] SouthComment on above:Performed By: #### ISA #### [facility] [address] [place] [address] Dr. Steven SimonHematocrit (Bld) [Volume fraction]44.8 %Crvesk82.0-48.0The [facility] SouthComment on above:Performed By: #### ISA #### [facility] [address] [place] [address] Dr. Steven SimonHemoglobin (Bld) [Mass/Vol]14.5 g/vDAuzlxr76.0-16.0The [facility] SouthComment on above:Performed By: #### ISA #### [facility] [address] [place] [address] Dr. Steven Baird #0.02 10e3/ulNormal0.00-0.03The [facility] SouthComment on above:Performed By: #### ISA #### [facility] [address] [place] [address] Dr. Steven Baird %0.2 %Normal0.0-0.5The [facility] SouthComment on above: Performed By: #### ISA #### [facility] [address] [place] [address] Dr. Yilan ChangLYMPH #3.6 103/ulNormal1.2-3.8The [facility] SouthComment on above:Performed By: #### ISA #### [facility] [address] [place] [address] Dr. Steven Fordmphocytes/100 WBC (Bld)43.3 %Lygwcy91.5-60.0The [facility] SouthComment on above:Performed By: #### ISA #### [facility] [address] [place] [address] Dr. Steven Lisa DIFF REQNONormalThe [facility] SouthComment on above: Performed By: #### ISA #### [facility] [address] [place] [address] Dr. Steven Bettencourt (RBC) [Entitic mass]28.6 ewPipnoy38.7-34.0The [facility] SouthComment on above:Performed By: #### ISA #### [facility] [address] [place] [address] Dr. Steven Bettencourt (RBC) [Mass/Vol]32.4 g/hIJthamx57.9-35.2The [facility] SouthComment on above:Performed By: #### CATHIL #### [facility] [address] [place] [address] Dr. Steven Bettencourt (RBC) [Entitic vol]88.4 sSEapipr72.0-99.0The [facility] SouthComment on above:Performed By: #### CATHIL #### [facility] [address] [place] [address] Dr. Steven Lim #0.6 103/ulNormal0.3-0.8The [facility] SouthComment on above:Performed By: #### CATHIL #### [facility] [address] [place] [address] Dr. Steven Dunnocytes/100 WBC (Bld)7.5 %Normal1.7-12.0The [facility] Comment on above:Performed By: #### ISA #### [facility] [address] [address] [address] Steven Goldsmith #3.9 103/ulNormal1.4-6.5The [facility] SouthComment on above:Performed By: #### CATHIL #### [facility] [address] [place] [address] Dr. Steven Parkutrophils/100 WBC (Bld)46.9 %Onltne54.0-75.0The [facility] SouthComment on above:Performed By: #### GIPANEL #### [facility] [address] [place] [address] Dr. Steven Sultanalet mean volume (Bld) [Entitic vol]9.8 fLNormal9.5-13.5The [facility] SouthComment on above:Performed By: #### CATHIL #### [facility] [address] [place] [address] Dr. Steven SimonPLT282 103/alXssdsh256-631Akr [facility] SouthComment on above: Performed By: #### CATHIL #### [facility] [address] [place] [address] Dr. Steven SimonRBC5.07 106/ulNormal4.20-5.40The [facility] on above:Performed By: #### AGUILAANEL #### [facility] [address] [place] [address] Dr. Steven SimonWBC8.4 103/ulNormal4.0-11.0The [facility] SouthComment on above: Performed By: #### GIPANEL #### [facility] [address] [place] [address] Dr. Harris ChangELECTROLYTESon 66-85-4503Fneka gap [Moles/Vol]14.7 mmol/LNormal The [facility] SouthComment on above:Performed By: #### ELEC, LIVER #### [facility] [address] [place] [address] Dr. Steven SimonChloride [Moles/Vol]99 mmol/RNutgsu80-281Ybb [facility] Comment on above:Performed By: #### ELEC, LIVER #### [facility] [address] [place] [address] Dr. Steven SimonCO2 [Moles/Vol]25.2 mmol/YPlpkgm23.0-30.0The [facility] Comment on above:Performed By: #### ELEC, LIVER #### [facility] [address] [place] [address] Dr. Steven SimonPotassium [Moles/Vol]3.9 mmol/LNormal3.4-5.0The [facility] Comment on above:Performed By: #### ELEC, LIVER #### [facility] [address] [place] [address] Dr. Steven SimonSodium [Moles/Vol]135 mmol/LCritically eqa998-050Sqj [facility] SouthComment on above:Performed By: #### ELEC, LIVER #### [facility] [address] [place] [address] Dr. Steven Sun PROFILEon 55-32-3344Pufcgsr [Mass/Vol]3.7 g/dLNormal3.5-5.0 The [facility] SouthComment on above:Performed By: #### ELEC, LIVER #### [facility] [address] [place] [address] Dr. Steven SimonAlbumin/Globulin [Mass ratio]1.0 {ratio}NormalThe [facility] SouthComment on above:Performed By: #### ELEC, LIVER #### [facility] [address] [place] [address] Dr. Steven Anaya [Catalytic activity/Vol]56 U/GHoogca49-679Tvs [facility] SouthComment on above:Performed By: #### ELEC, LIVER #### [facility] [address] [place] [address] Dr. Steven Lloyd [Catalytic activity/Vol]41 U/LNormal9-52The [facility] Comment on above:Performed By: #### ELEC, LIVER #### [facility] [address] [place] [address] Dr. Steven Das [Catalytic activity/Vol]27 U/LUvrsgi00-12Xtv [facility] HospitalComment on above:Performed By: #### ELEC, LIVER #### [facility] [address] [address] [address] Steven AgarwalI, CONJUGATED0.1 mg/dLNormal0.0-0.3TMadison Health Comment on above:Performed By: #### ELEC, LIVER #### [facility] [address] [address] [address] Steven Agarwalirubin [Mass/Vol]0.5 mg/dLNormal0.2-1.3TMadison Health Comment on above:Performed By: #### ELEC, LIVER #### [facility] [address] [place] [address] Dr. Steven SimonGlobulin (S) [Mass/Vol]3.6 g/dLNormalThUniversity Hospitals Beachwood Medical CenterComment on above:Performed By: #### ELEC, LIVER #### [facility] [address] [place] [address] Dr. Steven SimonProtein [Mass/Vol]7.3 g/dLNormal6.1-8.2[facility] Comment on above:Performed By: #### ELEC, LIVER #### [facility] [address] [place] [address] Dr. Steven SimonMG MAMM SCREEN 3D PATRICIA CADon [id number] MAMM SCREEN 3D PATRICIA CAD Patient: KEITH WASHINGTON Exam Date: 09/14/2021 : 1970 Gender:F Ordering : DR ERIK SMITH M.D. Admission #: [id number] Family : DR WILL CARSON . Order #: [id number] CLICK HERE TO VIEW EXAM RADIOLOGY REPORT [...] [facility] BRE[facility] COMPOSITION: Scattered areas fibroglandular density. FINDINGS: [...] by: Madison Doty M.D. on 09/14/2021 at 14:24NoWadsworth-Rittman HospitalCovid-19 PCR (CVDTBH)on [id number]-CoV-2 (COVID-19) RNA TATIANA+probe Ql (Unsp spec)Not detectedNormalNOT DETECTEDChillicothe Hospital on above: Result Comment: When diagnostic testing [...] for this test is supported by the Pharmacist'S Aide of Health and Human Service's declaration that circumstances exist to justify the emergency use of in vitro diagnostics for the detection and/or diagnosis of the virus that causes COVID-19. This EUA will remain in effect for the duration of the COVID-19 declaration justifying emergency of IVDs, unless it is terminated or revoked by the FDA (after which the test may no longer be used).Performed By: #### CVDTBH #### [facility] [address] [place] [address] Dr. Steven Pedersen URINE PROFILEon 87-42-6452Xltctxkjf Ql (U)NegativeNormal NEGATIVEChillicothe Hospital on above:Performed By: #### ERUR #### [facility] [address] [address] [address] Harris ChangClarity (U)CLEARNormalCLEARThe [facility] SouthComment on above: Performed By: #### ERUR #### [facility] [address] [address] [address] Steven Springer (U)YELLOWNormalYELLOWUniversity Hospitals Beachwood Medical CenterComment on above: Performed By: #### ERUR #### [facility] [address] [address] [address] Steven Hurtado micrscopic examination will be performed if indicated. NormalThe [facility] HospitalComment on above:Performed By: #### ERUR #### [facility] [address] [address] [address] Steven SimonGlucose Ql (U)500 mg/dlAbnoalNEGWyandot Memorial Hospital Comment on above:Performed By: #### ERUR #### [facility] [address] [address] [address] Steven SimonHemoglobin Ql (U)NegativermalNEGWyandot Memorial Hospital Comment on above:Performed By: #### ERUR #### [facility] [address] [place] [address] Dr. Steven SimonKetones Ql (U)NegativeNormalNEGATIVEUniversity Hospitals Beachwood Medical CenterComment on above:Performed By: #### ERUR #### [facility] [address] [place] [address] Dr. Steven SimonLEUKOCYTESNegativeNormalNEGWyandot Memorial HospitalComkalamazoo psychiatric hospital on above:Performed By: #### ERUR #### [facility] [address] [address] [address] Steven SimonNitrite Ql (U)NegativeNormalNEGATIVEUniversity Hospitals Beachwood Medical CenterComment on above:Performed By: #### ERUR #### [facility] [address] [address] [address] Steven SimonpH (U)7.5 [pH]Normal5-9[facility] Medical CenterComment on above: Performed By: #### ERUR #### [facility] [address] [address] [address] Steven SimonSPEC GRAVITY1.491Zzvdod7.005-<=1.025The [facility] SouthComment on above:Performed By: #### ERUR #### [facility] [address] [address] [address] Steven Olson PROTEINNegativeNormalNEGATIVE/ TRACEThe [facility] Comment on above:Performed By: #### ERUR #### [facility] [address] [address] [address] Steven Landa MICRO INDNOT INDICATEDNormalThe [facility] SouthComment on above:Performed By: #### ERUR #### [facility] [address] [address] [address] Steven SimonUrobilinogen Qn (U)0.2 {Claritza'U}/dLNormal0.2 - 1.0The [facility] SouthComment on above:Performed By: #### ERUR #### [facility] [address] [address] [address] Steven Simon Vital Signs Date TimeVital SignValuePerforming XmbcrwlpjSxbsbser27-85-0305 11:59-0400Body mass index (BMI) [Ratio]37.68 kg/m2Lesa FERRARO Work Phone: [phone] access hospital3[facility] HospitalSeypjwuyel57-86-2267 11:59-0400Body rlogar347.77 kgLesa FERRARO Work Phone: [phone] access hospital2[facility] HospitalGzsjslthmn52-96-7093 11:59-0400Diastolic blood bxjgemxs02 mm[Hg]Lesa FERRARO Work Phone: [phone] HospitalJkklopumeq83-03-7776 11:59-0400Systolic blood dmjukbhe392 mm[Hg]Lesa FERRARO Work Phone: [phone])[address]08-27-2025 09:53-0400Body qlgmyz027.64 Baljinder Smith MD Work Phone: [facility]08-27-2025 09:53-0400 Body mass index (BMI) [Ratio]37.5 kg/y3KieodErik Smith MD Work Phone: [facility]08-27-2025 09:53-0400 Body .68 kgErik Smith MD Work Phone: [phone])[address]08-27-2025 09:53-0400 Diastolic blood chmgsdin34 mm[Hg]Erik Smith MD Work Phone: 1(365)[address]08-27-2025 09:53-0400 Heart rate72 /minErik Smith MD Work Phone: [phone])[address]08-27-2025 09:53-0400 Systolic blood letotrbp632 mm[Hg]Erik Smith MD Work Phone: 1(584)[address] [place], [place] 3835508-06-2025 09:34-0400 Body obxluu119.7 cmSjessi Bianchi BIOINFORMATICS TECHNICIAN Work Phone: 1(726)88940[address] [place], [place] [address]Jthwhnoojq63-54-6986 09:34-0400Body mass index (BMI) [Ratio]36.28 kg/m5AdrccfJayne Bianchi BIOINFORMATICS TECHNICIAN Work Phone: 1(941)307-[address] [place], [place] [address]Ygojzdmjxw77-49-3805 09:34-0400Body .69 kgJayne Bianchi BIOINFORMATICS TECHNICIAN Work Phone: 1([phone] [place], [place] [address]Ndpxxgrdcd99-35-8234 09:34-0400Diastolic blood rbutzlas01 mm[Hg]Jayne Bianchi BIOINFORMATICS TECHNICIAN Work Phone: 1(968)535-[address] [place], [place] [address]Zlixglbtds82-68-9281 09:34-0400Heart rate78 /min Jayne Bianchi BIOINFORMATICS TECHNICIAN Work Phone: 1(877)872-[address] [place], [place] [address]Bkoesfxhjp95-67-8276 09:34-0400Respiratory rate17 /minSjessi Bianchi BIOINFORMATICS TECHNICIAN Work Phone: [facility] HospitalUobmoftnsa43-96-8028 09:34-1952HeZ0% (BldA) [Mass fraction]99 %Jayne Bianchi BIOINFORMATICS TECHNICIAN Work Phone: [facility] HospitalSokygmodgz88-77-9723 09:34-0400Systolic blood wgdaewkn059 mm[Hg]Jayne Bianchi BIOINFORMATICS TECHNICIAN Work Phone: 1(963)690-[address] [place], [place] [address]Tgaizwrwrf21-97-4552 11:07-0400Body mass index (BMI) [Ratio]35.61 kg/x6Qodie Alli DO Work Phone: [facility] HospitalBfhkzopyto17-37-8562 11:07-0400Body jxhmvu018.76 kgCorey Alli DO Work Phone: [facility] HospitalYthjybuzhz53-38-2398 11:07-0400Diastolic blood xhpgzinm38 mm[Hg]Will Alli DO Work Phone: [facility] HospitalNsykujzgsq51-45-0199 11:07-0400Systolic blood nypnrwvg820 mm[Hg]Will Alli DO Work Phone: [facility] HospitalNjojdyweap48-61-8017 13:02-0400Body mass index (BMI) [Ratio]35.15 kg/r4Nkprp Alli DO Work Phone: [facility] HospitalOgmaamftbl78-63-9963 13:02-0400Body vezomd338.4 kgCorey Alli DO Work Phone: [facility] HospitalWbyzozybij03-05-9646 13:02-0400Diastolic blood mm[Hg]Will Alli DO Work Phone: [facility] HospitalSucvuvggtt89-24-6840 13:02-0400Systolic blood mm[Hg]Will Alli DO Work Phone: [facility] HospitalIgbqdohhxy02-41-3002 08:37-0400Diastolic blood eyzbckkx67 mm[Hg]Julia Hemmer PA Work Phone: 1(174)546-[address] [place], [place] [address]Vbrghgnkfj48-96-5697 08:37-0400Systolic blood wzlivicl391 mm[Hg]Julia Hemmer PA Work Phone: 1(536)698-[address] [place], [place] [address]Vqjjgxuwij47-76-3880 08:13-0400Body xfuocz033.7 cmKyleen Hemmer PA Work Phone: [facility] HospitalWmlcnopbfh08-67-9266 08:13-0400Body mass index (BMI) [Ratio]35.9 kg/r2Huovo Hemmer PA Work Phone: [facility] HospitalFnieecaejc89-19-8494 08:13-0400Body drkqab344.6 kgKaren Hemmer PA Work Phone: [facility] CenterOhdvjdkktm14-01-6592 08:13-0400Heart rate78 /min Julia Adhikarimer PA Work Phone: noSS[facility] CenterBrftpphrbj77-52-3951 08:13-0400Respiratory rate16 /minKyleleigha Adhikarimer PA Work Phone: [facility] CenterYoegmvtvla51-27-4296 08:13-5202XtV9% (BldA) [Mass fraction]98 %Julia Adhikarimer PA Work Phone: [facility] CenterZxnsyitrtl55-67-5361 09:36-0400Body utadzw313.6 cmAharinder Cuenca PA Work Phone: noSS[facility] CenterGqbgilvmeu09-94-0276 09:36-0400Body mass index (BMI) [Ratio]36.96 kg/m2Michelle Cuenca PA Work Phone: no[facility] CenterFbxnmwckie50-50-9708 09:36-0400Body auvqyg958.87 kgMichelle Cuenca PA Work Phone: [facility] CenterBkudfwlifz21-20-8207 09:36-0400Diastolic blood sksechqs51 mm[Hg]Michelle Cuenca PA Work Phone: [facility] CenterCtwdtgpizb71-80-8003 09:36-0400Heart rate61 /min Michelle Cuenca PA Work Phone: [facility] CenterAnvxpdmomz92-67-1645 09:36-0400Respiratory rate16 /minMichelle Cuenca PA Work Phone: [facility] CenterNkvxcbcngl89-94-3048 09:36-7282UfF4% (BldA) [Mass fraction]98 %Michelle Cuenca PA Work Phone: [facility] CenterXzygnowtjv59-63-8893 09:36-0400Systolic blood sxwxkzyk705 mm[Hg]Michelle Cuenca PA Work Phone: [facility] CenterQbqjbuplvi34-78-4788 09:56-0500Body mass index (BMI) [Ratio]35.5 kg/w8MmzxvWill Carson DO Work Phone: [facility] CenterPzezdqchtx87-88-3440 09:56-0500Body yhqhef736.42 kgCorey Alli DO Work Phone: [facility] CenterCqndqkebdb72-27-6919 09:56-0500Diastolic blood vdwylyov75 mm[Hg]Will Alli DO Work Phone: [facility] CenterFywljtlnif91-72-6044 09:56-0500Systolic blood tgwzpjmo603 mm[Hg]Will Alli DO Work Phone: [facility] CenterNvgtxzmgzq61-52-8796 09:06-0500Body nhmyof859.7 Amy Bianchi BIOINFORMATICS TECHNICIAN Work Phone: [facility] CenterBxzvaggpim94-98-5006 09:06-0500Body mass index (BMI) [Ratio]35.44 kg/u8Uqesrfnany Bianchi BIOINFORMATICS TECHNICIAN Work Phone: [facility] CenterQsibwrdbcj28-57-5328 09:06-0500Body .24 kgJayne Bianchi BIOINFORMATICS TECHNICIAN Work Phone: [facility] CenterNlmakywytp95-76-3982 09:06-0500Diastolic blood sucmbddv60 mm[Hg]Jayne Bianchi BIOINFORMATICS TECHNICIAN Work Phone: [facility] CenterKypckmxdds70-89-3738 09:06-0500Heart rate67 /min Jayne Bianchi BIOINFORMATICS TECHNICIAN Work Phone: [facility] CenterNnsbohfqfk60-28-5399 09:06-0500Respiratory rate16 /minSjessi Bianchi BIOINFORMATICS TECHNICIAN Work Phone: [facility] CenterNuirpyiytl57-86-9687 09:06-9223JlZ2% (BldA) [Mass fraction]96 %Jayne Bianchi BIOINFORMATICS TECHNICIAN Work Phone: [facility] CenterIgxkahgexm54-68-8126 09:06-0500Systolic blood nsqhiayy460 mm[Hg]Jayne Bianchi BIOINFORMATICS TECHNICIAN Work Phone: [facility] CenterTufljcobhi26-21-9309 08:55-0500Body iimrlt996.7 Amy Bianchi BIOINFORMATICS TECHNICIAN Work Phone: [facility] CenterEfbqmhbzjk87-63-2066 08:55-0500Body mass index (BMI) [Ratio]35.44 kg/r3Hanxwznany Bianchi BIOINFORMATICS TECHNICIAN Work Phone: [facility] HospitalJsxlsszdos75-76-3667 08:55-0500Body .24 kgJayne Bianchi BIOINFORMATICS TECHNICIAN Work Phone: [facility] HospitalWtpxwxrkdh37-25-1411 08:55-0500Diastolic blood hkdqdiaz26 mm[Hg]Jayne Bianchi BIOINFORMATICS TECHNICIAN Work Phone: [facility] CenterTckkfkbssk17-50-1479 08:55-0500Heart rate67 /min Jayne Bianchi BIOINFORMATICS TECHNICIAN Work Phone: [facility] CenterSubdanlqif63-36-5126 08:55-0500Respiratory rate17 /minScady Bianchi BIOINFORMATICS TECHNICIAN Work Phone: [facility] HospitalZzeswmcito31-75-3811 08:55-1121PkE2% (BldA) [Mass fraction]97 %Jayne Bianchi BIOINFORMATICS TECHNICIAN Work Phone: [facility] HospitalQlyggngwqh53-81-3131 08:55-0500Systolic blood mm[Hg]Jayne Bianchi BIOINFORMATICS TECHNICIAN Work Phone: [facility] HospitalYheljpeprv44-82-0967 11:43-0500Body .6 cmKaren Hemmer PA Work Phone: [facility] HospitalSneqzdjzqo22-34-6522 11:43-0500Body mass index (BMI) [Ratio]36.41 kg/s8Wjdyd Hemmer PA Work Phone: [facility] HospitalBfkofqtujg72-31-0459 11:43-0500Body kdoenr256.33 kgKaren Hemmer PA Work Phone: [facility] HospitalUeahaxsnxm48-28-6444 11:43-0500Diastolic blood cebcdqir98 mm[Hg]Julia Hemmer PA Work Phone: [facility] HospitalItxfyfnsmv88-43-3340 11:43-0500Heart rate77 /min Julia Hemmer PA Work Phone: [facility] HospitalZtskvfgnjj33-91-9034 11:43-0500Respiratory rate16 /minKyleen Hemmer PA Work Phone: 1(834)805-[address] [place], [place] [address]Dxiydsocyt12-52-4624 11:43-0659CjC7% (BldA) [Mass fraction]97 %Julia Chen PA Work Phone: [facility] CenterKbrknontst52-21-9869 11:43-0500Systolic blood fhardwbs332 mm[Hg]Julia Chen PA Work Phone: [facility] CenterKlsqmkxrzq96-20-2844 09:49-0500Body ogqlhp975.6 Claudia Cuenca PA Work Phone: [facility] CenterFifehzboyg90-72-9937 09:49-0500Body mass index (BMI) [Ratio]36.48 kg/m2Michelle Cuenca PA Work Phone: [facility] CenterBehoxgiqwn55-00-7565 09:49-0500Body iqinly219.51 kgMichelle Cuenca PA Work Phone: [facility] CenterKjfzyufzth93-23-4969 09:49-0500Diastolic blood yitwrcyk92 mm[Hg]Michelle Cuenca PA Work Phone: [facility] CenterSfzjibvnxp35-67-5145 09:49-0500Heart rate79 /min Michelle Cuenca PA Work Phone: [facility] CenterElxhgjwlsd71-09-6370 09:49-0500Respiratory rate16 /minMichelle Cuenca PA Work Phone: [facility] CenterOveccolyog74-27-3151 09:49-4542QiL6% (BldA) [Mass fraction]97 %Michelle Cuenca PA Work Phone: [facility] CenterScwhmloyrm35-59-4938 09:49-0500Systolic blood vbyyryxy039 mm[Hg]Michelle Cuenca PA Work Phone: [facility] CenterUjjobzoely55-65-5190 10:16-0400Body onqcvw023.6 Claudia Cuenca PA Work Phone: [facility] CenterMxyywgwtox07-16-7964 10:16-0400Body mass index (BMI) [Ratio]37.12 kg/m2Michelle Cuenca PA Work Phone: [facility] CenterMtigfmttmp23-85-6770 10:16-0400Body sernwg066.33 kgMichelle Cuenca PA Work Phone: [facility] HospitalHsljlxuqfw77-62-4859 10:16-0400Diastolic blood mm[Hg]Michelle Cuenca PA Work Phone: [facility] HospitalYrwdsysjwr50-39-9708 10:16-0400Heart rate71 /min Michelle Cuenca PA Work Phone: [facility] CenterKgijzkpjry65-17-7915 10:16-0400Respiratory rate16 /minMichelle Cuenca PA Work Phone: [facility] HospitalNvrafhgzgx94-71-8710 10:16-0303DkQ9% (BldA) [Mass fraction]95 %Michelle Cuenca PA Work Phone: [facility] CenterJqswxfzwsg94-26-9799 10:16-0400Systolic blood mm[Hg]Michelle Cuenca PA Work Phone: [facility] HospitalGsxcgifqof17-27-6920 13:34-0400Body odeuum739.6 cmCelio Brown MD Work Phone: 1(078)828-[address] [place], [place] 3242009-10-2024 13:34-0400Body mass index (BMI) [Ratio]37.41 kg/a9VhwtgCelio Brown MD Work Phone: 1(379)838-[address] [place], [place] 3242009-10-2024 13:34-0400Body .14 kgCelio Brown MD Work Phone: 1(449)298-[address] [place], [place] 1460409-10-2024 13:34-0400Diastolic blood pdlcobnv36 mm[Hg]Celio Brown MD Work Phone: 1(746)069-[address] [place], [place] 3242009-10-2024 13:34-0400Heart rate 76 /minCelio Brown MD Work Phone: 1(790)898-[address] [place], [place] 1460409-10-2024 13:34-0400Systolic blood pkcqrxly346 mm[Hg]Celio Brown MD Work Phone: 1(212)572-[address] [place], [place] 1460409-03-2024 14:03-0400Body olerpf524.6 Baljinder Smiht MD Work Phone: [facility] HospitalMnlfjmbstp27-51-8275 14:03-0400Body mass index (BMI) [Ratio]37.28 kg/i1LdpdmErik Smith MD Work Phone: [facility] HospitalBvxdgkyhhs32-99-4156 14:03-0400Body xaqxxl913.78 kgErik Smith MD Work Phone: [facility] CenterItgsuuszzn40-66-0284 14:03-0400Diastolic blood xcskedwt54 mm[Hg]Erik Smith MD Work Phone: [facility] HospitalJwrmvjzeum05-59-8096 14:03-0400Heart rate69 /min Erik Smith MD Work Phone: [facility] CenterQpgqodkoku00-18-8463 14:03-7622ItT1% (BldA) [Mass fraction]97 %Erik Smith MD Work Phone: [facility] CenterQocuemdtiw60-43-1393 14:03-0400Systolic blood zpdztaiw241 mm[Hg]Erik Smith MD Work Phone: [facility] Encounters Encounter DateEncounter TypeCare ProviderFacilityStart: 07-27-2025 End: 01-36-4833Mtulayycw Result EncounterAmy You FERRARO Work Phone: noMS External Department UnsolicitedStart: 07-27-2025 End: 38-70-3023Eftcxzkag Result EncounterAmy You FERRARO Work Phone: noms External Department UnsolicitedStart: 07-14-2025 End: 69-87-4525Speygx flowsheetLesa FERRARO Work Phone: [facility] [place] [facility]BGYNStart: 07-14-2025 End: 69-42-0126Ucsxja flowsheetLesa FERRARO Work Phone: noMS [facility] OBGYNStart: 07-14-2025 End: 50-35-9542Dhyzzh outpatient visit 15 minutesLesa FERRARO Work Phone: noMS [facility] OBGYNComment on above:Post-menopause bleeding; Pelvic cramping; Encounter for screening mammogram for malignant neoplasm of breast; Urinary tract infection without hematuria, site unspecified; Menorrhagia with regular cycleStart: 07-14-2025 End: 13-80-7114cieglyblflRSE RAMEYNot AvailableStart: 75-68-0594mrwnvjbhptTmhfb M AldaFacility:[facility] Hospitaltart: 05-20-2025 End: 85-62-2326cdqagwapkdYnfvg M Alda MD Work Phone: [facility] Work Phone: Start: 05-20-2025 End: 82-31-3899Qubnrpq encounter procedureAngeshannon Caldwell [employer] WORKER-[facility] [place] Work Phone: Start: 04-29-2025 End: 81-91-2690Rxhnasjose Bianchi BIOINFORMATICS TECHNICIAN Work Phone: NOBF [facility] Lopez MedinceStart: 04-29-2025 End: 21-98-8410Rdpazkyakelin Bianchi NP Work Phone: NOHR [facility] MedinceStart: 04-29-2025 End: 94-27-3268Zowuzd outpatient visit 25 minutesShnany Bianchi BIOINFORMATICS TECHNICIAN Work Phone: noMS Danilo Lopez MedinceComment on above:Essential hypertension (Primary Dx); Pure hypercholesterolemia ; Type 2 diabetes mellitus with stage 2 chronic kidney disease, without long-term current use of insulin (HCC); Acute non-recurrent pansinusitis; Acute exacerbation of chronic obstructive pulmonary disease (COPD) (HCC); Shortness of breathStart: 04-29-2025 End: 85-92-0537jcvdchcdgiQEOKTH M SHIVELYNot AvailableStart: 04-03-2025 End: 30-55-2705Juooahja Result EncounterCorey Alli DO Work Phone: noms External Department UnsolicitedStart: 04-03-2025 End: 11-65-8894Wuuunzyd Result EncounterCorey Alli DO Work Phone: noms External Department UnsolicitedStart: 03-17-[address] [facility] CredibleStart: 03-11-2025 End: 15-91-2762Jfcsxs flowsheetCorey Alli DO Work Phone: [facility] OBStart: 03-11-2025 End: 76-41-1470Gszebd flowsheetCorey Alli DO Work Phone: NOXE BCP OBStart: 03-11-2025 End: 54-99-5960Rfltcq outpatient visit 15 minutesCorey Alli DO Work Phone: [facility] BCP OBComment on above:Cystitis (Primary Dx); HSV (herpes simplex virus) infection; Acute cystitis without hematuriaStart: 03-11-2025 End: 37-00-5381xdqcskcgrzEVPRS FAZIONot AvailableStart: 03-01-2025 End: 30-87-0965Djrykufry Result EncounterGeneric External Data ProviderNOMS External Department UnsolicitedStart: 03-01-2025 End: 89-04-0041Tvcogrutu Result EncounterGeneric External Data ProviderNOMS External Department UnsolicitedStart: 03-01-2025 End: 19-96-9104kltakedmrbFfspj M Alda MD Work Phone: [facility] Work Phone: Start: 03-01-2025 End: 99-32-2768Uzbcsnrp Edd Smith MD Work Phone: [facility]-LAB Path Spec [facility] HospStart: 01-18-2025 End: 10-35-5083GetfjfJiwr Hill PA Work Phone: ana BELLEVUEComment on above:Degeneration of intervertebral disc of lumbar region with discogenic back pain; Neck painStart: 01-13-2025 End: 70-27-3207Tftjug flowsheetCorey Alli DO Work Phone: [facility] BCP OBStart: 01-13-2025 End: 16-91-3349Ousief flowsheetCorey Alli DO Work Phone: [facility] BCP OBStart: 01-13-2025 End: 25-27-7088Fsilkq follow up visit related to original pxCorelaura Carson DO Work Phone: noms BCP OBComment on above:Postoperative follow-up Start: 01-13-2025 End: 27-63-3468jdorpgpizsBQAGB FAZIONot AvailableStart: 01-02-2025 End: 05-76-3823HahebpFrvhi M Hemmer PA Work Phone: noms CI FMComment on above:Type 2 diabetes mellitus with stage 2 chronic kidney disease, without long-term current use of insulin (CMS/HCC) (Primary Dx)Start: 12-26-2024 End: 48-94-8961Tzoqlnuge Result EncounterGeneric External Data ProviderNOMS External Department UnsolicitedStart: 12-26-2024 End: 85-08-7006Yirihwahr Result EncounterGeneric External Data ProviderNOMS External Department UnsolicitedStart: 12-26-2024 End: 15-79-3472augqlyygjdDsjdf M Alda MD Work Phone: [facility] Work Phone: Start: 12-26-2024 End: 71-70-5130Krzotmsp Edd Smith MD Work Phone: [facility]-LAB Path Spec [place] HospStart: 12-18-2024 End: 96-29-1393Wqrdcp outpatient visit 25 minutesJulia FERRARO Work Phone: noms CI FMComment on above:Postcoital bleeding (Primary Dx); Menopausal state; Pain in female genitalia on intercourse; Pre-operative examination; Type 2 diabetes mellitus with chronic kidney disease, without long-term current use of insulin, unspecified CKD stage (CMS/HCC); Essential hypertension (CMS/HCC); SmokerStart: 12-18-2024 End: 68-11-2253Lgsyvicyflilp examination Rehana FERRARO Work Phone: noms HealthcareStart: 12-18-2024 End: 29-97-1558eyaanammzaFCTOE M HEMMERNot AvailableStart: 12-17-2024 End: 16-39-5215Jlqnfb outpatient visit 25 minutesAnnfranklyn FERRARO Work Phone: aNA BELLEVUEComment on above:Encounter for drug therapy (Primary Dx); Degeneration of intervertebral disc of lumbar region with discogenic back pain; Left arm pain; Neck pain; VertigoStart: 12-17-2024 End: 47-02-5412aouaknlpdvBLKK HILLNot AvailableStart: 55-73-8003Ycqsbltifg Tanya Smith MD Work Phone: [facility]- CredibleStart: 12-10-2024 End: 24-01-2416pvqhzoojlhBPUMP FAZIONot AvailableStart: 12-09-2024 End: 77-35-9224RqbysjJwudmaqe Riedy MAANA BELLEVUEComment on above:Chronic low back pain, unspecified back pain laterality, unspecified whether sciatica presentStart: 11-27-2024 End: 40-88-0468qulecjofwnJJCVA M ALLENNot AvailableStart: 11-24-2024 End: 44-53-3012Zcjfdy Rosalba Alvarenga MD Work Phone: noms NB OPHTStart: 11-24-2024 End: 21-25-0551Qjhzqo Rosalba Alvarenga MD Work Phone: noms NB OPHTStart: 11-24-2024 End: 28-94-8095Zkamcc follow up visit related to original Miguel Alvarenga MD Work Phone: NOAX NB OPHTComment on above:Postoperative care for cataract (Primary Dx)Start: 11-24-2024 End: 04-70-1208iuvawupwugODNEU M ALLENNot AvailableStart: 11-10-2024 End: 04-13-3795Llwlux flowsheetCorey Alli DO Work Phone: [facility] BCP OBStart: 11-10-2024 End: 91-39-6110Mjuafp flowsheetCorey Alli DO Work Phone: [facility] BCP OBStart: 11-10-2024 End: 46-39-5549Pvlzdr outpatient visit 15 minutesCorey Alli DO Work Phone: NOII BCP OBComment on above:Bleeding after intercourse; Menopausal stateStart: 11-10-2024 End: 79-21-7928wscjosjghuREGHB FAZIONot AvailableStart: 11-06-2024 End: 50-59-6876GykpfbCygrnlpv Ilalthea [facility] PORT CLINTONComment on above:Chronic low back pain, unspecified back pain laterality, unspecified whether sciatica presentStart: 11-03-2024 End: 20-78-0073Zavysp Rosalba Alvarenga MD Work Phone: noms NB OPHTStart: 11-03-2024 End: 51-79-7037Hkqkht Rosalba Alvarenga MD Work Phone: noms NB OPHTStart: 11-03-2024 End: 68-62-8371Ocxgni follow up visit related to original Miguel Alvarenga MD Work Phone: noms NB OPHTComment on above:Postoperative care for cataract (Primary Dx)Start: 11-03-2024 End: 92-21-5065jjabwqmmtsLPMQZ M ALLENNot AvailableStart: 10-23-2024 End: 07-52-1572Gealgbx encounter She Alvarenga MD Work Phone: noms NB OPHTComment on above:Mechanical ptosis of left eyelid (Primary Dx)Start: 10-23-2024 End: 97-93-7834zrfdcutwdfYWFFI M ALLENNot AvailableStart: 10-22-2024 End: 25-55-7144Czmdcq Yashira Bianchi BIOINFORMATICS TECHNICIAN Work Phone: NOM[facility] CI FMStart: 10-22-2024 End: 73-01-7225Gvmkwv Yashira Bianchi BIOINFORMATICS TECHNICIAN Work Phone: NOM[facility] CI FMStart: 10-22-2024 End: 38-07-8507Tdrayu outpatient visit 25 minutesJayne Bianchi BIOINFORMATICS TECHNICIAN Work Phone: NOM[facility] CI FMComment on above:Mixed hyperlipidemia (CMS/HCC) (Primary Dx); Major depressive disorder, recurrent, moderate (CMS/HCC); BronchitisStart: 10-22-2024 End: 33-30-1723ndxigbcqmiIDAAMLEl Alcantara AvailableStart: 10-15-2024 End: 71-47-2063Dwmxju Yashira Bianchi BIOINFORMATICS TECHNICIAN Work Phone: N[facility] CI FMStart: 10-15-2024 End: 72-76-3933Fkekqz Yashira Bianchi BIOINFORMATICS TECHNICIAN Work Phone: NOM[facility] CI FMStart: 10-15-2024 End: 62-71-8932Fpksmk outpatient visit 25 minutesShnany Bianchi BIOINFORMATICS TECHNICIAN Work Phone: NOMS CI FMComment on above:Bronchitis (Primary Dx); Morbid (severe) obesity due to excess calories (CMS/HCC); Essential (primary) hypertension (CMS/HCC); Body mass index (BMI) 36.0-36.9, adultStart: 10-15-2024 End: 42-76-0100ioyquwggpzXDRRINEl Alcantara AvailableStart: 10-01-2024 End: 65-07-1307JuwfamMzdehpkz Riedy MAANA BELLEVUEComment on above:Chronic low back pain, unspecified back pain laterality, unspecified whether sciatica presentStart: 09-04-2024 End: 96-29-5225Kwpjvk Lillian FERRARO Work Phone: NOM[facility] CI FMStart: 09-04-2024 End: 88-37-1741Kfuecy Lillian FERRARO Work Phone: NOM[facility] CI FMStart: 09-04-2024 End: 23-16-2249Svzsber encounter Cecily FERRARO Work Phone: NOMS CI FMComment on above:Medicare annual wellness visit, subsequent (Primary Dx); ACP (advance care [...] Pure hypercholesterolemia (CMS/HCC); Sensorineural hearing loss, bilateral; SmokerStart: 09-04-2024 End: 97-71-5165youqkdvqhvYDGYMIsha Jones AvailableStart: 08-26-2024 End: 57-48-8773XijmuvFheptowjKim [facility] ROUTEComment on above: Chronic low back pain, unspecified back pain laterality, unspecified whether sciatica presentStart: 08-20-2024 End: 00-74-6851Asygzt outpatient visit 15 minutesMichelle FERRARO Work Phone: noms [facility] ROUTEComment on above:Degeneration of intervertebral disc of lumbar region with discogenic back pain (Primary Dx); Encounter for drug therapy; Left arm pain; Neck pain; VertigoStart: 08-20-2024 End: 07-14-2602plgbcomfdzRFNW HILLNot AvailableStart: 08-19-2024 End: 83-82-7887yfsmzlsdomTMNSQL BENEDICTNot AvailableStart: 08-19-2024 End: 42-16-0938Trikuue encounter procedureSmarycruz Vieira MD Work Phone: [facility] [facility] ROUTEComment on above:Left arm pain (Primary Dx); Carpal tunnel syndrome on both sidesStart: 08-14-2024 End: 49-05-9417Cclgtkqsa Result EncounterGeneric External Data ProviderNOMS External Department UnsolicitedStart: 08-14-2024 End: 37-91-9792Wfjhgzjem Result EncounterGeneric External Data ProviderNOMS External Department UnsolicitedStart: 07-21-2024 End: 43-50-2915Qebgsp Corinne FERRARO Work Phone: noMS [place] ROUTEStart: 07-21-2024 End: 66-86-4406Gplxvf Corinne FERRARO Work Phone: [facility] ROUTEStart: 07-21-2024 End: 41-67-8490[place] outpatient visit [address] [facility]Michel[facility] FERRARO Work Phone: [facility] [place] ROUTEComment on above:Encounter for drug therapy (Primary Dx); Degeneration of intervertebral disc of lumbar region with discogenic back pain; Hyper reflexia; Left arm pain; Neck painStart: 07-21-2024 End: 64-69-0657tsnydfidxrXICI HILLNot AvailableStart: 07-08-2024 End: 05-01-3030AjpochTrezflts Rebeca MANOMS [place] ROUTEComment on above: Chronic low back pain, unspecified back pain laterality, unspecified whether sciatica presentStart: 07-07-2024 End: 09-93-2841Rorxtq Rosalba Alvarenga MD Work Phone: noms NB OPHTStart: 07-07-2024 End: 64-00-7687Uaawdc flowsBrynn Alvarenga MD Work Phone: noms NB OPHTStart: 06-04-2024 End: 52-97-9942Jxqqyiqqh encounterJulia FERRARO Work Phone: NOMS CI FMComment on above:Chronic low back pain, unspecified back pain laterality, unspecified whether sciatica presentStart: 06-03-2024 End: 92-01-2898phkmmsknzwXRPPJ A SIMTrinity Health System West Campus HospitalStart: 06-03-2024 End: 41-76-5929Xyeetg consultation new/estab patient 40 minCelio Brown MD Work Phone: proMedmvb Physicians Hepatobiliary, Pancreatic & Endocrine SurgeryComment on above:Serous cystadenoma of pancreas (Primary Dx) Start: 09-63-4692mmhujuphrdEgtHnuhlg Hospital Ambulatory PPGStart: 05-27-2024 End: 58-90-3472Xlgoro outpatient visit 25 minutesErik Smith MD Work Phone: NOMS CI FMComment on above: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 (Primary Dx); Pancreas, cyst, true (CMS/HCC)Start: 05-13-2024 End: 52-84-9568Yydpxvitp Result EncounterJulia FERRARO Work Phone: NOMS External Department UnsolicitedStart: 05-13-2024 End: 29-42-4456Pvxgjkllz Result EncounterJulia FERRARO Work Phone: NOMS External Department UnsolicitedStart: 05-13-2024 End: 56-91-3597Ihsegakzk encounterJulia FERRARO Work Phone: NOMS CI FMStart: 48-73-6737Rlyov abstractingJulia FERRARO Work Phone: NOMS CI FMStart: 09-04-2023 End: 78-55-9621Ngssizdjb Result EncounterJulia FERRARO Work Phone: NOMS External Department UnsolicitedStart: 09-04-2023 End: 57-22-2047Boguotezu Result EncounterJulia FERRARO Work Phone: NOWT External Department UnsolicitedStart: 05-09-2023 End: 50-13-5217ddfzxicdolThvjgpe T PowersFacility:FTMCStart: 05-09-2023 End: 52-18-6558Rtetkhn encounter procedureMichael T Block [facility] Start: 08-11-2022 End: 79-80-9954oxwevkaamuLB RUGLEIGHA ALDAFacility:D2Zhsdr: 07-22-2022 End: 47-64-6398qmfywpymhqPP HUMPHREY Butler WESTFacility:X0Vwqbx: 04-20-2022 End: 14-67-5475yjchesnpwcPyvdb BrownFacility:J3Mhalo: 04-13-2022 End: 51-47-4023grtpmixdlrFJ HUMPHREY Butler WESTFacility:B9Vzwhc: 02-10-2022 End: 95-02-3012uffirohmvgWU BARON PAYFacility:G8Uebuf: 12-29-2021 End: 69-49-5766kurdzolryzGV Madison ZieberFacility:A4Bjkrg: 12-28-2021 End: 45-10-6886ccoexhfattSVECPP SHIVELYFacility:K5Rcxsi: 09-26-2021 End: 38-88-3809zvgxylygfsZW WILL FAZIOFacility:S3Xylsk: 09-14-2021 End: 20-97-5863ievlqwtudfKM RUGEN ALDAFacility:K8Fblvk: 08-20-2021 End: 07-13-3945vvztquhhdaWWGIVE RODRIGUEZFacility:H1 Procedures DateProcedureProcedure DetailPerforming ClinicianStart: 04-47-7718ZC TOMOSYNTHESIS SCREENING Michele FERRARO Work Phone: Start: 43-98-3742AO PELVIS W/ TRANSVAGINKey FERRARO Work Phone: Start: 42-96-5641FbgvyduflpdRdk Ramey PA Work Phone: Start: 82-76-9383Snqfq dip stick/tablet rgnt non-auto w/o micrscpAmy You FERRARO Work Phone: Start: 11-08-3534Rvlzcfcrkn glycosylated g5vOevvbe Paulette Bianchi BIOINFORMATICS TECHNICIAN Work Phone: Start: 24-78-7105RTRXQKZ TRACT INFECTION (HTRX)Will Alli DO Work Phone: Start: 25-38-9838Ncmvp dip stick/tablet rgnt non-auto w/o micrscpAmy You FERRARO Work Phone: Start: 70-50-0733Nuhuu Kian Smith MD Work Phone: Start: 59-67-6666UOBPP CULTURE - FRGeneric External Data ProviderStart: 90-02-4535QVW CBC WITH AUTO DIFFCorey Alli DO Work Phone: Start: 87-97-1921Wqcdwcedcb glycosylated x2oSxzmpJulia FERRARO Work Phone: Start: 08-20-2024 End: 82-58-9865Eiyxqa emg ea extremty w/paraspinl area richardBanner Payson Medical Centerfranklyn FERRARO Work Phone: Start: 92-99-3734Qwn spinal canal cervical w/o contrast matrlGeneric External Data ProviderStart: 41-10-6248Btilsq field xm uni/bi w/interpretj limited examAmarilis Alvarenga MD Work Phone: Start: 07-07-2024 End: 49-24-1142Guujn medical xm&eval compre new pt 1/> vstMechanical ptosis of left eyelidAmarilis Alvarenga MD Work Phone: comment on above:Mechanical ptosis of left eyelid (Primary Dx)Start: 11-55-9873Udi abdomen w/o & w/contrast materialJulia FERRARO Work Phone: Start: 44-83-4868YD CHEST 2VJulia FERRARO Work Phone: Start: 00-46-2468WbmlkebcyflBypsl Hemmer PA Work Phone: Start: 13-13-6115Jjpnmtjzedd observation [Identifier] in Cervix by Cyto stainJulia FERRARO Work Phone: Start: 44-09-0803Grybtuz of hernia repairMichaemilvia CellVir Comment on above:ventral hernia x 4Start: 09-24-2007 CholecystectomyMicPaomianba.coml CellVir Start: 00-49-7395Cwcb biopsy of liverMichael Block Start: 31-95-1058Pbaz biopsy of pancreasMichael Block Start: 04-12-0776Ymjhlid of nasal sinus surgeryMichael Block Start: 16-62-4140Mgkxcglo sectionMictrishal Block Excision of lumbar intervertebral discMichael Block Plan of Treatment DateCare ActivityDetailAuthorStart: 23-36-7343Rpwwieml screeningDiabetes: Retinopathy ScreeningNOMS HealthcareStart: 70-11-5273Xdkbpdjs screeningDiabetes: Retinopathy ScreeningNOMS HealthcareStart: 04-69-1056Gawcbhnmy for malignant neoplasm of colonNOMS HealthcareStart: 45-94-9709Zfncj screening for protein Diabetes: Urine Protein ScreeningNOMS HealthcareStart: 83-42-9170Zfovvlkfo for malignant neoplasm of cervixNOMS HealthcareStart: 12-12-2025Medicare Annual Wellness (AWV)Medicare Annual Wellness (AWV)NOMS HealthcareStart: 08-19-2025 End: 08-64-9813Odxjuht encounter zjmcixkyl43/26/2025 2:00 PM EST Procedure Visit [facility] [place] [facility] [address] [place] [address] Lesa Orta PA [address] [place], [place] [id number] NOM [place] OBGYNStart: 07-30-2025 Hemoglobin A1c measurementDiabetes: Hemoglobin E5TCWPK HealthcareStart: 07-14-2025 End: 56-38-4235ES Breast - bilateral ScreeningBilateral screening mammogram Imaging Routine Encounter for screening mammogram for malignant neoplasm of breast Expected: 07/14/2025 (Approximate), Expires: 09/13/2026NONH Healthcare Work Phone: comment on above:Expected: 07/14/2025 (Approximate), Expires: 09/13/2026Start: 07-14-2025 End: 66-67-9579JU PelvisUS Pelvis w/ TV Imaging Routine Post-menopause bleeding Pelvic cramping Expected: 07/14/2025 (Approximate), Expires: 07/14/2026[facility] HealthcareComment on above:Expected: 07/14/2025 (Approximate), Expires: 07/14/2026Start: 70-52-1122Vxskm BMI ScreeningAdult BMI ScreeningProSt. Vincent'S Hospital Health SystemStart: 45-26-6997Pcmykmh ScreeningTobacco ScreeningProSt. Vincent'S Hospital Health SystemStart: 89-66-1182PPQGB-19 Vaccine ( season)COVID-19 Vaccine ( season)[facility] HealthcareStart: 71-15-9261Qlmoupnva vaccinationKANE COUNTY H[facility]OURCE SSD HealthcareStart: 04-29-2025 End: 87-47-5632Uihau 1996 panel - Serum or PlasmaLipid panel Lab Routine Pure hypercholesterolemia Expected: 04/29/2025 (Approximate), Expires: 04/29/2026NONH HealthcareComment on above:Expected: 04/29/2025 (Approximate), Expires: 04/29/2026Start: 04-29-2025 End: 49-53-3434Drlyrzrptkes/Creatinine panel in random UrineMicroalbumin / creatinine, urine ratio Lab Routine Type 2 diabetes mellitus with stage 2 chronic kidney disease, without long-term current use of insulin (HCC) Expected: 04/29/2025 (Approximate), Expires: 04/29/2026NONH Healthcare Work Phone: Comment on above:Expected: 04/29/2025 (Approximate), Expires: 04/29/2026Start: 04-29-2025 End: 41-17-6291Hvjtgqz encounter mhzvrfivi57/06/2025 9:30 AM EDT Office Visit RAMOS Lopez [facility] [address] [facility] [address] [place] [address] Jayne Bianchi NP [address] [facility] [address] [place] [address] Essential hypertension (Primary Dx); Pure hypercholesterolemia ; Type 2 diabetes mellitus with stage 2 chronic kidney disease, without long-term current use of insulin (HCC)NOMGenevieve Carras[facility] Comment on above:Essential hypertension (Primary Dx); Pure hypercholesterolemia ; Type 2 diabetes mellitus with stage 2 chronic kidney disease, without long-term current use of insulin (HCC)Start: 04-21-2025 End: 48-18-1148Nzvuo 1996 panel - Serum or PlasmaLipid panel Lab Routine Mixed hyperlipidemia ([facility]/HCC) Expected: 04/21/2025 (Approximate), Expires:10/22/[address] [facility] Work Phone: Comment on above:Expected: 04/21/2025 (Approximate), Expires: 10/22/2025Start: 06-76-6121Stegnjetaj A1c measurementDiabetes: Hemoglobin P1MWJOE HealthcareStart: 03-11-2025 End: 95-03-9238Uypuxfq encounter mxssxebwu21/18/2025 11:00 AM EDT Office Visit NOM [facility]CP [facility] [address] [place] [phone] Will Carson DO [address] [place] [address] ArrivedNONH BCP OBComment on above:ArrivedStart: 95-12-0963Qrrcuwpx identified in Urine by CultureTogus VA Medical Centertart: 02-86-4994JwjfjMcKitrick [facility] Start: 01-13-2025 End: 09-01-5937Meofskr encounter ilhgbemxb27/22/2025 1:00 PM EDT Office Visit NOMS [facility] [address] [place] [address] Will Carson, DO [address] [place], [place] [id number] ArrivedNOJOHN GEORGE [facility] OBComment on above:ArrivedStart: 01-08-2025 End: 36-89-6539Ulsvqyr encounter /17/2025 8:40 AM EDT Office Visit NOMS [facility] [address] [place] [address] Lesa Orta PA [address] [place] [address] NOMS BCP OBStart: 75-53-8980Uqyjw screening for protein Diabetes: Urine Protein ScreeningNONH HealthcareStart: 12-18-2024 End: 10-39-1985Cregmxa encounter ojofkwmye47/27/2025 8:00 AM EDT Office Visit NOMS CI FM [address] [facility] [address] [place] [address] Julia Chen PA [address] [place] [address] NOMS CI FMStart: 12-17-2024 End: 60-56-1338Ybytdte encounter vvkgfzunb73/26/2025 9:40 AM EDT Office Visit [facility] [address] [place] [address] Michelle Cuenca PA [address] [place] [address] HELADIO REINAUEStart: 12-10-2024 End: 89-47-7690Qvyrvxy encounter hushbgywf39/19/2025 11:30 AM EDT Consult [facility]S [facility] [address] [facility] [place] [address] Will Carson, DO [address] [place] [address] NOMS BCP OBStart: 12-10-2024 End: 91-69-3229Essjwjyxrnac / ancillary services /19/2025 10:30 AM EDT Ancillary Procedure [facility] [address] [facility] [facility] [address] [place] [address] NOMS BCP OBStart: 11-24-2024 End: 95-38-8787Bpdxcld encounter xdrvgabte44/03/2025 9:15 AM EST Office Visit NOMS NB OPHT [address] [place] [address] Amarilis Alvarenga MD [address] [place] [address] ArrivedNOMS NB OPHTComment on above:ArrivedStart: 11-10-2024 End: 46-32-1074SC PelvisUS Pelvis w/ TV Imaging Routine Bleeding after intercourse Menopausal state Expected: 11/10/2024, Expires: 11/10/2025N[facility] Work Phone: comment on above:Expected: 11/10/2024, Expires: 11/10/2025Start: 11-10-2024 End: 02-90-3805Ixbcohz encounter procedureNOMS BCP OBComment on above:Arrived Start: 11-03-2024 End: 55-92-4804Oxfhtit encounter procedureNOMS NB OPHTComment on above:Arrived Start: 10-23-2024 End: 47-72-1727Vvyxbyw encounter uuconlqte19/30/2025 3:00 PM EST Procedure Visit NOMS NB OPHT [address] [place] [phone] Amarilis Alvarenga MD [address] [place] [address] NOMS NB OPHTStart: 10-22-2024 End: 22-89-5592Jgnypnk encounter /29/2025 9:00 AM EST Office Visit NOMS CI FM [address] [place] [address] Jayne Bianchi, BIOINFORMATICS TECHNICIAN [address] [place] [address] ArrivedNOMS CI FMComment on above:ArrivedStart: 10-15-2024 End: 74-84-2732Hjiyngv encounter yfupjwqpg59/22/2025 9:00 AM EST Office Visit NOMS CI FM [address] [place] [address] Jayne Bianchi, BIOINFORMATICS TECHNICIAN [address] [place] [address] ArrivedNOMS CI FMComment on above:ArrivedStart: 81-52-6300Hcqhszxnkhgc Vaccine: Pediatrics (0 to 5 Years) and At-Risk Patients (6 to 64 Years) (3 of 3 - PCV20 or PCV21)Pneumococcal Vaccine: Pediatrics (0 to 5 Years) and At-Risk Patients (6 to 64 Years) (3 of 3 - PCV20 or PCV21)NOMS HealthcareStart: 10-02-2024 End: 05-26-9307Drsozwl encounter arsjxhgzi28/09/2025 2:30 PM EST Procedure Visit NOMS AKSHAT OPHT [address] [place] [phone] Amarilis Alvarenga MD [address] [place] [address] NOMS OPHTStart: 09-04-2024 End: 97-80-4442Jeslu 1996 panel - Serum or PlasmaLipid panel Lab Routine Medicare annual wellness visit, subsequent Essential hypertension (CMS/HCC)Type 2 diabetes mellitus with stage 2 chronic kidney disease, without long-term current use of insulin (CMS/HCC) Pure hypercholesterolemia (CMS/HCC) Expected: 09/04/2024 (Approximate), Expires: 09/04/2025N[facility] Healthcare Work Phone: Comment on above:Expected: 09/04/2024 (Approximate), Expires: 09/04/2025Start: 09-04-2024 End: 99-48-2077Twhndgo encounter ncfdmbens64/12/2024 11:30 AM EST Office Visit NOMS CI FM [address] [place] [address] Julia Chen PA [address] [place] [address] ArrivedNOMS CI FMComment on above:ArrivedStart: 08-28-2024 End: 59-05-6566Nntzfsg encounter usmkormqb08/05/2024 2:30 PM EST Procedure Visit NOMS NB OPHT [address] [place] [phone] Amarilis Alvarenga MD [address] [place] [address] NOMS NB OPHTStart: 08-20-2024 End: 72-88-5879Fkaoquo encounter pkcpeuhsa49/27/2024 10:00 AM EST Office Visit [facility] [place] [facility] [address] [place] [address] Michelle Cuenca PA [address] [place] [address] [facility] [place] [facility] R[facility]TEStart: 08-19-2024 End: 93-91-0756Kwvqmsg encounter uqipxketd01/26/2024 10:00 AM EST Procedure Visit N[facility] [place] [address] [place], [phone] Madison Vieira MD [address] [place] [address] NOMS [place] [facility] ROUTEStart: 59-93-3149Smeybflxgs A1c measurementDiabetes: Hemoglobin I3LITJM HealthcareStart: 16-79-6078Larvmanyj for malignant neoplasm of breastMammogramNONH HealthcareStart: 07-21-2024 End: 60-20-7058XPQ 2 ExtremitiesEMG 2 Extremities Neurology Routine Left arm pain Expected: 07/21/2024 (Approximate), Expires: 07/21/2025NONH Healthcare Comment on above:Expected: 07/21/2024 (Approximate), Expires: 07/21/2025Start: 07-21-2024 End: 41-38-3873LF Cervical spine WO contrastMR cervical spine wo contrast Imaging Routine Hyper reflexia Left arm pain Neck pain Expected: 07/21/2024 (Approximate), Expires: 07/21/2025NONH Healthcare Work Phone: comment on above:Expected: 07/21/2024 (Approximate), Expires: 07/21/2025Start: 07-21-2024 End: 65-10-7212Dzjluih encounter procedureNOST. FRANCIS [facility] STATE ROUTEComment on above:ArrivedStart: 07-07-2024 End: 02-90-8658Glawcer encounter cabhgmepc61/14/2024 2:15 PM EDT Office Visit NOMS OPHT [address] [place] [address] Amarilis Alvarenga MD [address] [place] [address] ArrivedINTERMOUNTAIN HEALTHCARE OPHTComment on above:ArrivedStart: 05-25-2024 COVID-19 Vaccine ()COVID-19 Vaccine () [facility] SystemStart: 46-16-4525Tcmqqhuvn vaccinationK[facility] Start: 07-24-2024Medicare Annual Wellness (AWV)Medicare Annual Wellness (AWV) NOMS HealthcareStart: 05-88-2878Yritowead vaccinationInfluenza Vaccine (#1)NOMS HealthcareComment on above:Postponed from 05/25/2023 (Patient Refused)Start: 77-85-5458Wevshctjt for malignant neoplasm of cervixPap SmearProCommunity Regional Medical Center SystemStart: 64-25-5094Seqjcvqfir A1c measurementDiabetes: Hemoglobin F6ZYOAD HealthcareStart: 10-30-2023 End: 32-72-1575Dcyfsex encounter kolaunngm45/06/2024 10:00 AM EST Office Visit NOMS MANJINDER [address] [facility] [address] [place] [address] Julia Chen PA [address] [facility] [address] [place] [address] NOMS CI FMStart: 98-18-4059Vplxvwrfbazrro of varicella zoster vaccineZoster (Shingles) Vaccine (2 of 2)[facility] SystemStart: 37-00-0075Ssszndgkm for malignant neoplasm of cervixPap SmearKANE [facility]OURCE [facility] Healthcare Start: 57-16-2858TJnN,Tdap and Td Vaccines (1 - Tdap)DTaP,Tdap and Td Vaccines (1 - Tdap)[facility] SystemStart: 10-34-1567Xiacajozp B Vaccines (1 of 3 - 19+ 3-dose series)Hepatitis B Vaccines (1 of 3 - 19+ 3-dose series)[facility] HealthcareStart: 19-83-1885Rmwqa BMI Follow Up PlanAdult BMI Follow Up Plan [facility] SystemStart: 78-95-3788Ozfesekcxl ScreeningDepression Screening [facility] SystemStart: 64-31-7729Ifquzfdu screeningDiabetes: Retinopathy ScreeningNOMS HealthcareStart: 30-70-8007PCkD/Tdap/Td Vaccines (1 - Tdap) DTaP/Tdap/Td Vaccines (1 - Tdap)[facility] HealthcareStart: 53-86-1304OLG Vaccines (1 of 1 - Standard series)MMR Vaccines (1 of 1 - Standard series)[facility] Start: 46-97-7437Fggeulzuv for malignant neoplasm of colonNOMS HealthcareStart: 00-89-9470Tdzucty CounselingTobacco CounselingProParkview Healthca Health SystemCHLAMYDIA TRACHOMATIS (GENITO/STI)CHLAMYDIA TRACHOMATIS (GENITO/STI) Lab Routine Bleeding after intercourse Ordered: 11/10/2024[facility] HealthcareComment on above:Ordered: 11/10/2024Drugs of abuse panel - Urine by Screen methodToxicology screen, urine Lab Routine Encounter for drug therapy 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 Ordered: 12/17/2024[facility] Work Phone: comment on above:Ordered: 12/17/2024Neisseria gonorrhoeae DNA [Presence] in Unspecified specimen by TATIANA with probe detection Neisseria gonorrhea DNA probe, direct Lab Routine Bleeding after intercourse Ordered: 11/10/2024[facility] HealthcareComment on above:Ordered: 11/10/2024 SURESWAB(R) ADVANCED VAGINITIS PLUS, TMASURESWAB(R) ADVANCED VAGINITIS PLUS, TMA Pathology and Cytology Routine Bleeding after intercourse Ordered: 11/10/2024 NOMS HealthcareComment on above:Ordered: 11/10/2024[facility]ULT[facility] [place] [facility] Routine 03/01/2025 11:48 [facility] Immunizations Immunization DateImmunizationNotesCare TgtrrfydBrgklvju04-40-1680ltuuinpgxhim conjugate vaccine, 13 valSandy FERRARO Work Phone: [facility] HospitalUozytntatp88-52-5982blihfr vaccine recombinant Julia FERRARO Work Phone: [facility] HospitalBtvslnkiva03-08-5938cjaidv vaccine, unspecified formulationCelio Brown MD Work Phone: pMercy Health St. [facility] HospitalZkjdnf86-45-4742ewodmnfljjoc polysaccharide vaccine, 23 valSandy FERRARO Work Phone: [facility] Payers DatePayer CategoryPayerPolicy ID2023Self-pay2020Medicaid [id number] 2007Medicare [id number] [id number] 1968 [id number] 2.840.1.225850.3.57[id number] 2..840.1.043633.3.579.[id number] 2.16840.1.552228.3.579.2.10809-58-3936Dslbgfg1913436 2.16840.1.556994.3.579.2.68030-10-4599Pdpjbqi0202470 2.16.840.1.166381.3.579.2.64923-67-1108Vskobip0812688 2.840.1.096912.3.579.2.20563-05-3684Aqcinvx3048530 2.840.1.664981.3.579.2.25329-12-0108Lhvpswu9729186 2.840.1.136557.3.579.2.38701-72-0185Dahryit0171716 2.840.1.125273.3.579.2.99901-27-7901Hlzexzk7070077 2.840.1.956344.3.579.2.10576-69-7464Aihhgkw7798284 2.840.1.014524.3.579.2.38502-24-5623Zjbudwc34734729 2.840.1.259661.3.579.2.16581-91-7688Rrhmqrn80491572 2.840.1.936524.3.579.2.464921-45-3026Roekvkd77552544 2.840.1.507604.3.579.2.388292-83-4162Nxnxztq92668861 2.840.1.947180.3.579.2.106948-60-5368Futvfiy38770158 2.840.1.365985.3.579.2.955956-57-9509Lxcxdii12848270 2.840.1.722902.3.579.2.344468-77-8069Byvjdkt28944930 2.16.840.1.420304.3.579.2.673292-69-6264Auvymzu25766065 2.16.840.1.185112.3.579.2.348755-72-4152Qinfddm6908237 2.16840.1.113029.3.579.2.742351-56-4459Viptpla4200922 2.16840.1.492591.3.579.2.067103-84-4857Mwkvawl2260316 2.840.1.026541.3.579.2.028691-36-4604Fpxhsxc5041134 2.840.1.090564.3.579.2.405465-19-5114Iqlcxxr8320569 2.0.1.155611.3.579.2.876906-43-7035Luwsvkw2352742 2.840.1.762955.3.579.2.778736-37-0621Csqcudk1511191 2.840.1.369482.3.579.2.634686-08-9422Yjroakj6376105 2.840.1.915503.3.579.2.646573-82-6152Szanvyt0357964 2.840.1.392925.3.579.2.317552-67-2958Zvxmtft9911215 2.840.1.336120.3.579.2.904357-93-0894Wndruus7440459 2.16840.1.250865.3.579.2.584877-71-1055Shutzju5985048 2.16840.1.077028.3.579.2.283435-13-4784Budfofj9658362 2.0.1.718466.3.579.2.724356-16-4516Hqhjplo4733340 2..0.1.622297.3.579.2.458092-64-4778Jafppgc9886042 2..0.1.389132.3.579.2.707697-67-9504Ywcnryz2434293 2.0.1.283984.3.579.2.766991-14-3997Cljfsat0340239 2..0.1.628272.3.579.2.1259 [id number] 1960Medicare [id number] [id number] 2.840.1.476529.3.579.2.660Cyginqc18782761 2.16840.1.355923.3.579.2.417Fclshva07924274 2.840.1.157313.3.579.2.531 Social History DateTypeDetailFacilityStart: 40-80-5382Qekcqfb smoking statusHeavy tobacco smoker (finding)[facility] CenterStart: 09-03-2023 End: 58-03-7837Fra Assigned At BirthFeGalion Community Hospitaltart: 04-18-2023 End: 24-52-4233Qmpgipj smoking status NHISSmokes tobacco dailyNOMS Healthcare History of tobacco useCigarette SmokerNOMS HealthcareStart: 04-18-2023 End: 34-12-1034Ygszmph use and exposureSmokeless tobacco non-userNOMS Healthcare Start: 09-03-2023 End: 74-87-4922Qnlyhof intakeEx-drinker (finding)[facility] HealthcareStart: 09-03-2023 End: 15-65-0459Vzecjlv of Social functionNOMS HealthcareStart: 81-18-5160Uuwdgxt Comment5 or less cigs/dayNOMS HealthcareStart: 43-38-4442Iht Assigned At Not on fileNOMS HealthcareStart: 69-82-5767Dntpfgw smoking status NHISEx-smoker NOMS HealthcareHistory of tobacco useCurrent smokerNOMS HealthcareStart: 00-46-5056Qlf often do you need to have someone help you when you read instructions, pamphlets, or other written material from your doctor or pharmacy [SILS]NeverNOMS Healthcare Work Phone: How often to you have a drink containing alcohol?Never [facility] HealthcareHow hard is it for you to pay for the very basics like food, housing, medical care, and heatingNot very hardNOMS HealthcareDo you feel stress - tense, restless, nervous, or anxious, or unable to sleep at night because yourmind is troubled all the time - these days [OSQ]Only a littleNOMS Healthcare (I/We) worried whether (my/our) food would run out before (I/we) got money to buy more.Never trueNOMS HealthcareStart: 57-01-5138Bdjysdujy beverage intake Lifetime non-drinker (finding)[facility]edicNorth[facility] SystemTobacco smoking status NHIS Unknown if ever smokedSelect Medical Specialty [facility] Work Phone: Start: 12-27-2024 End: 79-00-7087IvaXkgnoc (finding)[facility] Hospitaltart: 74-03-2668Nxk Assigned At BirthFeUniversity Hospitals [facility] Medical Equipment Procedure CodeEquipment CodeEquipment Original TextEquipment IdentifierDates1 each by Other route 1 (one) time each day.[id number] Functional Status KjahYepmlhwwihZsdrbxHicrvkul95-21-3824Iyqdoct Health Questionnaire 2 item (PHQ- 2) [Reported][facility] HospitalJoduvuilrr91-89-6066CRM-5 quick depression assessment panel [Reported.PHQ][facility] HospitalLtiukvszuh71-21-6687Xfeguln Health Questionnaire 2 item (PHQ- 2) [Reported][facility] HospitalBgelmchfzk53-95-5187Mxlbl score [AUDIT-C]0 04/03/2024 3:51 PM EDT Sunday, Vidya, PATYSEDRICKA[facility] 05-13-2024 to 07-14-2025 Note Date & FwcuOqryQgivccdu85-25-1227 History of Present illness Narrative* JASMINE De Guzman - 07/14/2025 11:20 AM EDT Reason for Appointment: Patient ID: Keith Washington is a 55 y.o. female who presents [...] colon 04/07/2008 Meniere's disease 04/15/2023 Morbid obesity ([facility]) 04/15/2023 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 Other rosacea 04/15/2023 Pancreas, cyst, true (HCC) 04/15/2023 Low back pain 02/28/2008 Chronic pansinusitis 03/21/2019 Moderate persistent asthma without complication ([facility]) 04/16/2023 History of gastritis 04/16/2023 Bilateral [...] Date Noted Stage 3a chronic kidney disease ([facility]) 03/31/2023 Acute gastritis 02/28/2008 Anxiety state 02/28/2008 Asthma with exacerbation ([facility]) 02/28/2008 Benign neoplasm of skin 09/27/2009 Abdominal muscle pain 02/28/2008 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 Pansinusitis 04/15/2023 Swelling of vagina 04/15/2023 Abnormal vaginal bleeding 07/26/2016 Antidepressants causing adverse effect in therapeutic use 11/22/2015 Diabetic renal disease (HCC) 10/18/2017 Dizziness 11/22/2015 Moderate episode of recurrent major depressive disorder (HCC) 11/22/2015 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 Myopathy 07/26/2023 BMI 45.0-49.9, adult ([facility]) 07/31/2023 Transient alteration of awareness 04/26/2024 Vertigo [...] Vitals: Estimated body mass index is 36.28 kg/m as calculated from the following: Height [...] was given to pt to obtain at [facility] and Annual appointment to be scheduled w/Lesa [...] of: JASMINE De Guzman documented in this encounterHawthorn Children's Psychiatric [id number] History of Present illness Narrative* Jayne Bianchi NP - 04/29/2025 9:30 AM EDT Images from the original note were not included. Subjective Patient ID: Keith Washington is a 54 y.o. female who presents for No chief complaint on file.. Keith presents today for a follow up visit due to high cholesterol and being diabetic. Her last A1c was 5.5 on 05/05/24 She also has has issues with a cough and sinus drainage for a week. Over the past 2 weeks, how often have you been bothered by any of the following problems? Little interest or pleasure in doing things: Several days Feeling down, depressed, or hopeless: Several days Patient Health Questionnaire-2 Score: 2 If you checked off any problems on this questionnaire so far, How difficult have these problems made it for you to do your work, take care of things at home, or get along with other people?: Very difficult Current Outpatient Medications on File Prior to Visit Medication Sig Dispense Refill atenolol (Tenormin) 50 MG tablet TAKE 1 TABLET BY MOUTH EVERY DAY 100 tablet 3 clonazePAM (KlonoPIN) 1 MG tablet Take 1 tablet by mouth in the morning and 1 tablet in the eveningand 1 tablet before bedtime. Docusate Sodium (DSS) 100 MG capsule Take 100 mg by mouth every 12 (twelve) hours if needed. escitalopram (Lexapro) 20 MG tablet Take 1 tablet by mouth 1 (one) time each day. estradiol (Estrace) 0.1 MG/GM vaginal cream PLEASE [...] MORNING ON AN EMPTY STOMACH 90 tablet 4 meclizine (Antivert) 25 MG tablet Take 1 [...] if needed for nausea 20 tablet 2 ondansetron ODT (Zofran-ODT) 4 MG disintegrating tablet Take 1 tablet (4 mg) by mouth every 6 (six)hours if needed for nausea or vomiting for up to 30 doses 30 tablet 0 phenazopyridine (Pyridium) 200 MG tablet Take 200 mg by mouth 3 (three) times a day as needed for bladder spasms potassium chloride CR (Klor-Con M20) 20 MEQ ER tablet TAKE 1 TABLET BY MOUTH EVERY DAY 90 tablet 4 Red Yeast Rice Extract (RED YEAST RICE PO) Take 1 tablet by mouth Daily semaglutide (Ozempic, 1 MG/DOSE,) 4 MG/3ML solution pen-injector Inject 1 mg under the skin 1 (one)time per week 3 mL 11 tiZANidine (Zanaflex) 4 MG tablet TAKE 1/2 TO 1 TABLET BY MOUTH EVERY MORNING AND 1 TABLET AT BEDTIME 180 tablet 1 Umeclidinium-Vilanterol (Anoro Ellipta) 62.5-25 MCG/ACT aerosol powder [...] effect in therapeutic use 11/22/2015 Anxiety Asthma ([facility]) 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 Carpal tunnel syndrome Chest pain Confusion 04/01/2015 and weakness COPD (chronic obstructive pulmonary disease) ([facility]) Degenerative disc disease, cervical Degenerative disc disease, [...] R CTR- MTP Visit Vitals OB Status Premenopausal Smoking Status Every Day Review of Systems Constitutional: Negative. HENT: Positive for congestion, ear pain, postnasal drip, sinus pressure, sinus pain and sore throat. Eyes: Negative. Respiratory: Positive for cough. Cardiovascular: Negative. Gastrointestinal: Negative. Genitourinary: Negative. Musculoskeletal: Negative. Skin: Negative. Neurological: Negative. Psychiatric/Behavioral: Negative. Objective Physical Exam Vitals reviewed. Constitutional: Appearance: Normal appearance. HENT: Head: Normocephalic. Right Ear: A middle ear effusion is present. Left Ear: A middle ear effusion is present. Nose: Right Turbinates: Swollen. Left Turbinates: Swollen. Mouth/Throat: Lips: [place]. Mouth: Mucous membranes are moist. Pharynx: Uvula swelling and postnasal drip present. Cardiovascular: Rate and Rhythm: Normal rate and regular rhythm. Pulmonary: Breath sounds: Wheezing present. Skin: General: Skin is warm and dry. Neurological: General: No focal deficit present. Mental Status: She is alert and oriented to person, place, and time. Psychiatric: Mood and Affect: Mood normal. Behavior: Behavior normal. Thought Content: Thought content normal. Judgment: Judgment normal. Assessment/Plan Diagnoses and all orders for this visit: Essential hypertension Patient's blood pressure is currently well controlled. Continue with current medications and I willcontinue to monitor. Goal BP remains less than 130/80. Pure hypercholesterolemia - Lipid panel; Future Await lab Type 2 diabetes mellitus with stage 2 chronic kidney disease, without long-term current use of insulin ([facility]) - Microalbumin / creatinine, urine ratio; Future - POCT glycosylated hemoglobin (Hb A1C) docked device - Tirzepatide (Mounjaro) 2.5 MG/0.5ML solution auto-injector; Inject 2.5 mg under the skin 1 (one) time per week Discussed today the importance of proper diabetic control. Discussed possible complications of diabetes, including loss of vision, renal failure, increased risk of heart attacks and strokes, blood vessel and/or nerve damage. Reviewed the recommended changes to reduce your blood sugars and minimize the risk of these complications. Reviewed diabetic goals, including keeping A1C <7.0% and blood pressure < 130/70. The plan for achieving these goals is adherence to medications, maintaining a healthy and balanced diet, and regular activity as discussed during today's visit. Discussed current barriers to achieving these goals. Discussed dietary goals. Discussed decreasing carbohydrates and simple sugar intake. Reviewed portion control with the patient. If the patient still has questions onthis, a referral to a Dietitian can be arranged. Reviewed medications that aid in diabetic control.Discussed proper dosing and educated the patient on possible side effects and complications. The patient verbalized understanding of these instructions. Anthony is making her sick. Acute non-recurrent pansinusitis - amoxicillin (Amoxil) 875 MG tablet; Take 1 tablet (875 mg) by mouth in the morning and 1 tablet (875 mg) before bedtime. Do all this for 10 days. Start the above as directed. Reviewed potential s/e with patient. Encouraged probiotic while on antibiotic. Increase water intake, get plenty of rest. Can take OTC allergy medication for symptomatic relief. Tylenol/Motrin prn. Follow up if no improvement in one week. Acute exacerbation of chronic obstructive pulmonary disease (COPD) ([facility]) - predniSONE (Deltasone) 10 MG tablet; Take 4 tablets (40 mg) by mouth Daily for 2 days, THEN 3 tablets (30 mg) Daily for 2 days, THEN 2 tablets (20 mg) Daily for 2 days, THEN 1 tablet (10 mg) Daily for 2 days. - ipratropium-albuterol (Duo-Neb) 0.5-2.5 mg/3 mL nebulizer solution; Take 3 mL by nebulization every 6 (six) hours PRN Start the above medications as directed. Advised of potential side effects of the steroid. Patient is to take the steroid with food. Increase water intake, get plenty of rest. Can take Tylenol prn for any discomfort or fever. No other anti-inflammatories while on steroid. Cough into elbow. Wash hands often. Follow up in our office if no improvement in one week. Shortness of breath - albuterol HFA (Ventolin HFA) 90 mcg/act inhaler; Inhale 1 puff every 4 (four) hours if needed forwheezing or shortness of breath - ipratropium-albuterol (Duo-Neb) 0.5-2.5 mg/3 mL nebulizer solution; Take 3 mL by nebulization every 6 (six) hours PRN Use inhalers as directed. No follow-ups on file. documented in this encounterHawthorn Children's Psychiatric [id number] History of Present illness Narrative* Merlyn Garcia NP - 03/11/2025 11:00 AM EDT Reason for Appointment: Patient ID: Keith Washington is a 54 y.o. female who presents for No chief complaint on file. Patient presents today for Acute Visit. MEDICATIONS Current Outpatient Medications Medication Instructions atenolol [...] 4 mg, Oral, Every 12 hours PRN phenazopyridine (PYRIDIUM) 200 mg, 3 times daily PRN potassium chloride CR (Klor-Con M20) 20 MEQ ER tablet 20 mEq, Oral, Daily Red Yeast Rice Extract (RED YEAST RICE PO) 1 tablet, Daily tiZANidine (Zanaflex) 4 MG tablet TAKE 1/2 TO 1 TABLET BY MOUTH EVERY MORNING AND 1 TABLET AT BEDTIME Umeclidinium-Vilanterol (Anoro Ellipta) 62.5-25 MCG/ACT aerosol powder 1 puff, Inhalation, Every 24hours valACYclovir (VALTREX) 1,000 mg, Oral, 2 times daily Ventolin HFA 108 (90 Base) MCG/ACT inhaler [...] colon 04/07/2008 Meniere's disease 04/15/2023 Morbid obesity ([facility]) 04/15/2023 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 Other rosacea 04/15/2023 Pancreas, cyst, true (HCC) 04/15/2023 Low back pain 02/28/2008 Chronic pansinusitis 03/21/2019 Moderate persistent asthma without complication (HCC) 04/16/2023 History of gastritis 04/16/2023 Bilateral carpal [...] Date Noted Stage 3a chronic kidney disease ([facility]) 03/31/2023 Acute gastritis 02/28/2008 Anxiety state 02/28/2008 Asthma with exacerbation ([facility]) 02/28/2008 Benign neoplasm of skin 09/27/2009 Abdominal muscle pain 02/28/2008 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 Pansinusitis 04/15/2023 Swelling of vagina 04/15/2023 Abnormal vaginal bleeding 07/26/2016 Antidepressants causing adverse effect in therapeutic use 11/22/2015 Diabetic renal disease (HCC) 10/18/2017 Dizziness 11/22/2015 Moderate episode of recurrent major depressive disorder ([facility]) 11/22/2015 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 Myopathy 07/26/2023 BMI 45.0-49.9, adult ([facility]) 07/31/2023 Transient alteration of awareness 04/26/2024 [...] EKG 2012 syncope EYE SURGERY LIVER BIOPSY 2008 OTHER SURGICAL HISTORY 2008 YVF, Normal K+ OTHER SURGICAL HISTORY 1993 r/o sinus polpys WRIST SURGERY 06/06/2023 R CTR- MTP REVIEW OF SYSTEMS Review of Systems: Review of Systems Constitutional: Negative. HENT: Negative. Eyes: Negative. Respiratory: Negative. Cardiovascular: Negative. Gastrointestinal: Negative. Genitourinary: Positive for dysuria and urgency. Musculoskeletal: Negative. Skin: Negative. Painful bump in private area. Would like refill of Valtrex Neurological: Negative. All other systems reviewed and [...] nursing note reviewed. Exam conducted with a ecologist technician present. Vitals: Estimated body mass index is 35.61 kg/m as calculated from the following: Height as of 12/18/24: 5' 7.2 . Weight as of this encounter: 228 lb 12 oz. BP: 124/78 No LMP recorded. Patient is premenopausal. ASSESSMENT & PLAN ICD-10-CM 1. HSV (herpes simplex virus) infection B00.9 valACYclovir (Valtrex) 1 g tablet Patient recently seen in the ED for UTI and treated with Cipro but continues with urgency and dysuria, our office will send urine for culture today. Patient denies fever, chills and nausea and vomiting. Patient with recent HSV lesion and continues on the Valtrex . Patient to schedule PAP exam for follow up Documented by Merlyn Garcia NP on behalf of: amadou de guzman documented in this encounterNOSSM DePaul Health [id number] Telephone encounter Note* Telephone Encounter - Shanti Christopher MA - 01/19/2025 3:04 PM EDT Patient last filled 12/11 [facility] [id number] Miscellaneous Notes* Telephone Encounter - Shanti Christopher MA - 01/19/2025 3:04 PM EDT Patient last filled 12/11 * Telephone Encounter - Dionne Jain - 01/19/2025 12:02 PM EDT Patient left vm to get a refill of Percocet. documented in this encounterHawthorn Children's Psychiatric [id number] Telephone encounter Note* Telephone Encounter - Dionne Jain - 01/19/2025 12:02 PM EDT Patient left vm to get a refill of Percocet. [facility] Psychiatric [id number] History of Present illness Narrative* Julia Tang LPN - 01/13/2025 1:00 PM EDT Reason for Appointment: Patient ID: Keith Washington [...] aerosol powder 1 puff, Inhalation, Every 24hours Ventolin HFA 108 (90 Base) MCG/ACT inhaler 1 puff, Every 4 hours PRN ALLERGIES Allergies Allergen Reactions Morphine Unknown Nitrofurantoin Unknown Nitrofurantoin Macrocrystal Unknown Cephalexin Rash Moxifloxacin Rash PROBLEMS Active Ambulatory Problems Diagnosis Date Noted Essential hypertension ([facility]) 03/31/2023 Generalized anxiety disorder ([facility]) 03/31/2023 Chronic obstructive pulmonary disease ([facility]) 03/31/2023 Pulmonary emphysema ([facility]) 03/31/2023 Pure hypercholesterolemia ([facility]) 03/31/2023 Sensorineural hearing loss, bilateral 03/31/2023 Smoker 03/31/2023 Type 2 diabetes mellitus with diabetic chronic kidney disease ([facility]) 03/31/2023 Abnormal gait 04/15/2023 Acquired hypothyroidism ([facility]) 02/28/2008 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 Bilateral tinnitus 04/15/2023 Chronic reactive otitis externa of both ears 04/15/2023 Drug-induced adrenocortical insufficiency ([facility]) 04/15/2023 DUB (dysfunctional uterine bleeding) 04/15/2023 Irritable colon 04/07/2008 Meniere's disease 04/15/2023 Morbid obesity ([facility]) 04/15/2023 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 Other rosacea 04/15/2023 Pancreas, cyst, true ([facility]) 04/15/2023 Low back pain 02/28/2008 Chronic pansinusitis 03/21/2019 Moderate persistent asthma without complication ([facility]) 04/16/2023 History of gastritis 04/16/2023 Bilateral carpal tunnel syndrome 04/24/2023 Chronic glossitis 05/16/2023 Myalgia 07/04/2023 Depression ([facility]) 07/31/2023 GERD (gastroesophageal reflux disease) 07/31/2023 History of TIA (transient ischemic attack) 07/31/2023 Infected sebaceous cyst 07/31/2023 Abnormal CBC 12/25/2023 Menopause 12/25/2023 Cervicalgia 04/26/2024 Fibromyalgia 04/26/2024 Pain in joint, pelvic region and thigh 04/26/2024 Benign paroxysmal positional vertigo 04/26/2024 Lumbosacral radiculopathy 04/26/2024 Anxiety and depression ([facility]) 04/26/2024 Degenerative disc disease, lumbar 04/26/2024 Degenerative disc disease, cervical 04/26/2024 Disturbance of skin sensation 04/26/2024 Median neuropathy 04/26/2024 Post concussion syndrome 04/26/2024 Serous cystadenoma of pancreas 06/03/2024 Bleeding after intercourse 11/10/2024 Resolved Ambulatory Problems Diagnosis Date Noted Stage 3a chronic kidney disease (HCC) ([facility]) 03/31/2023 Acute gastritis 02/28/2008 Anxiety state ([facility]) 02/28/2008 Asthma with exacerbation ([facility]) 02/28/2008 Benign neoplasm of skin 09/27/2009 Abdominal muscle pain 02/28/2008 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 Pansinusitis 04/15/2023 Swelling of vagina 04/15/2023 Abnormal vaginal bleeding 07/26/2016 Antidepressants causing adverse effect in therapeutic use 11/22/2015 Diabetic renal disease ([facility]) 10/18/2017 Dizziness 11/22/2015 Moderate episode of recurrent major depressive disorder ([facility]) 11/22/2015 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 Myopathy 07/26/2023 BMI 45.0-49.9, adult ([facility]) 07/31/2023 Transient alteration of awareness 04/26/2024 Vertigo 04/26/2024 Back pain 04/26/2024 Brachial neuritis or radiculitis 04/26/2024 Carpal tunnel syndrome 04/26/2024 Backache 04/26/2024 Past Medical History: Diagnosis Date Alteration of awareness Anxiety Asthma Chest pain Confusion 04/01/2015 COPD (chronic obstructive pulmonary disease) (CMS/HCC) Diabetes mellitus (CMS/HCC) Diarrhea Disease of thyroid gland (CMS/HCC) Dyspnea Gallbladder disease Genital herpes History of [...] EKG 2012 syncope EYE SURGERY LIVER BIOPSY 2008 OTHER SURGICAL HISTORY 2007 [...] nursing note reviewed. Exam conducted with a ecologist technician present. Vitals: Estimated body mass index is [...] having a D&C Hysteroscopy performed at [facility] with Dr. Carson. Pathology results was reviewed with the patient in great detail and all restrictions have been lifted. Pt has dyspareunia- advised to use coconut oil. Pt to return for annual exam Follow Up: Patient is to return to the office for annual exam unless needed otherwise. Documented by Julia Tang LPN on behalf of: Will Carson DO documented in this encounterNOSSM [facility]Paul Health [id number] Telephone encounter Note* Telephone Encounter - JASMINE Roberts - 01/02/2025 12:02 PM EDT Refill sent. [facility] [id number] Miscellaneous Notes* Telephone Encounter - JASMINE Roberts - 01/02/2025 12:02 PM EDT Refill sent. documented in this encounterHawthorn Children's Psychiatric [id number] History of Present illness Narrative* JASMINE Roberts - 12/18/2024 8:00 AM EDT Images from the original note were not included. Subjective Patient ID: Keith Washington is a 54 y.o. female who presents for surgical clearance. Keith is present today for surgical clearance. She is scheduled for a D&C hysteroscopy possible Myosure on 12/26/[address] Carson. She completed her PAT and results in computer. States was told shewill be under general anesthesia. States the effects [...] the morning and 1 tablet in the eveningand 1 tablet before bedtime. Docusate Sodium (DSS) [...] SURGERY LIVER BIOPSY 2008 OTHER SURGICAL HISTORY 2007 [...] 0.55 - 1.02 mg/dL Final [facility] EGFR-AF NIGERIAN 12/16/2024 >60 >=60 mL/min/1.73m 2 Final [facility] EGFR-NON AF NIGERIAN 12/16/2024 >60 >=60 mL/min/1.73m 2 Final BUN [...] 12/16/2024 8.7 1.7 - 12.0 % Final [facility] EO % 12/16/2024 2.5 0.9 - 7.0 % Final BASOPHILS PERCENT AUTO 12/16/2024 1.0 0.2 - 2.0 % Final IMMATURE GRANULOCYTES PCT AUTO 12/16/2024 0.3 0.0 - 0.5 % Final NEUTROPHILS ABSOLUTE AUTO 12/16/2024 2.0 1.4 - 6.5 10 3/uL Final LYMPHOCYTES ABSOLUTE AUTO 12/16/2024 3.4 1.2 - 3.8 10 3/uL Final MONOCYTES ABSOLUTE AUTO 12/16/2024 0.5 0.3 - 0.8 10 3/uL Final [facility] EO # 12/16/2024 0.2 0.0 - 0.7 10 3/uL Final BASOPHILS ABSOLUTE AUTO 12/16/2024 0.1 0.0 - 0.1 10 3/uL Final IMMATURE GRANULOCYTES ABS AUTO 12/16/2024 0.02 0.00 - 0.03 10 3/uL Final PARTIAL THROMBOPLASTIN TIME 12/16/2024 28.0 22.3 - 36.2 sec Final PROTHROMBIN TIME 12/16/2024 10.8 9.0 - 11.6 sec Final [facility] INR 12/16/2024 1.02 Final Comment: DESIRED INR: 2.0-3.0 CONDITIONS NOT LISTED BELOW 2.5-3.5 FOR PROSTHETIC HEART VALVE REPLACEMENT 2.5-3.5 RECURRENT THROMBOSIS Assessment/Plan Diagnoses and all orders for this visit: Postcoital bleeding Patient is scheduled for a D&C Hysteroscopy possible Myosure on 12/26/[address] Will Carson at [facility]. Menopausal state See above. Pain in female genitalia on intercourse See above. Pre-operative examination The patient was interviewed and examined. The patient's medical history and medications were reviewed. Patient is to follow guidance of surgical team regarding all medications. There are no uncontrolled medical problems at present. Patient is active and has no chest pain. All available PAT was revie wed, including ECG, CXR, and lab work.. There are no medical contraindications for surgery noted atthis time, and the patient is considered low [...] patient to cut back and soon quit smoking.Health risks of smoking, and benefits of quitting reviewed with the patient. Advised smoking can delay healing after surgery and increase risk of adverse events. Follow up in about 3 months (around 03/20/2025). documented in this encounterHawthorn Children's Psychiatric [id number] History of Present illness Narrative* JASMINE Esteban - 12/17/2024 9:40 AM EDT Christianne Washington is a 54 y.o. year [...] choking, chest tightness, shortness of breath, wheezing andstridor. Cardiovascular: Negative for chest pain, palpitations and leg swelling. Gastrointestinal: Negative for abdominal distention, abdominal pain, anal bleeding, blood in stool,constipation, diarrhea, nausea, rectal pain and vomiting. Musculoskeletal: [...] Recent and remote memory are intact. Speech isnormal. Language is fluent with no aphasia. Attention [...] triceps, wrist extensors, wrist extensors, wrist flexor, ranger aide strength 5/5. LUE Strength deltoid, biceps, triceps, wrist extensors, wrist extensors, wrist flexor, ranger aide strength 5/5. RLE Strength illopsoas, quadriceps, tibialis [...] benefit. She has had a recent increase insymptoms due to the nature of her job and increased lifting. 30 day MME/day: 12.5. Repeat UDS todayconsistent with her medications. She has been without mobic and zanaflex and has had some increase in symptoms. Anxiety and depression ([facility]) Follows with Dr. Holder for anxiety [...] arm pain. She denies paresthesia. Cervical spine MRIrevealed discogenic change and mild/moderate facet arthropathy. No evidence of cord compression. BUE EMG revealed CTS. MRI cervical spine 08/12/2024: revealed discogenic change and mild to moderate facet arthropathy inthe cervical spine, no central or foraminal stenosis [...] intractable pain related to lumbar degenerative spine disease.She is spacing out dosing and lasting longer [...] was not tampered with. documented in this [facility]03-18-2025 Telephone encounter Note* Telephone Encounter - Ramesh Jose MA - 12/09/2024 2:58 PM EDT OARRS reviewed due now [facility] [id number] Miscellaneous Notes* Telephone Encounter - Ramesh Jose MA - 12/09/2024 2:58 PM EDT OARRS reviewed due now documented in this [facility]03-03-2025 History of Present illness Narrative* Amarilis Alvarenga MD - 11/24/2024 9:15 AM EST Assessment/Plan undercorrected documented in this [facility]02-17-2025 History of Present illness Narrative* Nel Delgadillo LPN - 11/10/2024 10:00 AM EST Reason for Appointment: Patient ID: Keith Washington [...] aerosol powder 1 puff, Inhalation, Every 24hours Ventolin HFA 108 (90 Base) MCG/ACT inhaler 1 puff, Every 4 hours PRN ALLERGIES Allergies Allergen Reactions Morphine Unknown Nitrofurantoin Unknown Nitrofurantoin Macrocrystal Unknown Cephalexin Rash Moxifloxacin Rash PROBLEMS Active Ambulatory Problems Diagnosis Date Noted Essential hypertension ([facility]) 03/31/2023 Generalized anxiety disorder ([facility]) 03/31/2023 Chronic obstructive pulmonary disease ([facility]) 03/31/2023 Pulmonary emphysema ([facility]) 03/31/2023 Pure hypercholesterolemia ([facility]) 03/31/2023 Sensorineural hearing loss, bilateral 03/31/2023 Smoker 03/31/2023 Type 2 diabetes mellitus with diabetic chronic kidney disease ([facility]) 03/31/2023 Abnormal gait 04/15/2023 Acquired hypothyroidism ([facility]) 02/28/2008 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 Bilateral tinnitus 04/15/2023 Chronic reactive otitis externa of both ears 04/15/2023 Drug-induced adrenocortical insufficiency ([facility]/HCC) 04/15/2023 DUB (dysfunctional uterine bleeding) 04/15/2023 Irritable colon 04/07/2008 Meniere's disease 04/15/2023 Morbid obesity (CMS/[facility]) 04/15/2023 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 Other rosacea 04/15/2023 Pancreas, cyst, true (CMS/[facility]) 04/15/2023 Low back pain 02/28/2008 Chronic pansinusitis 03/21/2019 Moderate persistent asthma without complication (CMS/[facility]) 04/16/2023 History of gastritis 04/16/2023 Bilateral carpal tunnel syndrome 04/24/2023 Chronic glossitis 05/16/2023 Myalgia 07/04/2023 Depression (CMS/[facility]) 07/31/2023 GERD (gastroesophageal reflux disease) 07/31/2023 History of TIA (transient ischemic attack) 07/31/2023 Infected sebaceous cyst 07/31/2023 Abnormal CBC 12/25/2023 Menopause 12/25/2023 Cervicalgia 04/26/2024 Fibromyalgia 04/26/2024 Pain in joint, pelvic region and thigh 04/26/2024 Benign paroxysmal positional vertigo 04/26/2024 Lumbosacral radiculopathy 04/26/2024 Anxiety and depression ([facility]) 04/26/2024 Degenerative disc disease, lumbar 04/26/2024 Degenerative disc disease, cervical 04/26/2024 Disturbance of skin sensation 04/26/2024 Median neuropathy 04/26/2024 Post concussion syndrome 04/26/2024 Serous cystadenoma of pancreas 06/03/2024 Resolved Ambulatory Problems Diagnosis Date Noted Stage 3a chronic kidney disease (HCC) (CMS/[facility]) 03/31/2023 Acute gastritis 02/28/2008 Anxiety state (CMS/[facility]) 02/28/2008 Asthma with exacerbation (CMS/[facility]) 02/28/2008 Benign neoplasm of skin 09/27/2009 Abdominal muscle pain 02/28/2008 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 Pansinusitis 04/15/2023 Swelling of vagina 04/15/2023 Abnormal vaginal bleeding 07/26/2016 Antidepressants causing adverse effect in therapeutic use 11/22/2015 Diabetic renal disease (CMS/[facility]) 10/18/2017 Dizziness 11/22/2015 Moderate episode of recurrent major depressive disorder (CMS/[facility]) 11/22/2015 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 Myopathy 07/26/2023 BMI 45.0-49.9, adult (CMS/HCC) 07/31/2023 Transient alteration of awareness 04/26/2024 Vertigo 04/26/2024 Back pain 04/26/2024 Brachial neuritis or radiculitis 04/26/2024 Carpal tunnel syndrome 04/26/2024 Backache 04/26/2024 Past Medical History: Diagnosis Date Alteration of awareness Anxiety Asthma (CMS/HCC) Chest pain Confusion 04/01/2015 COPD (chronic obstructive pulmonary disease) (CMS/HCC) Diabetes mellitus (CMS/HCC) Diarrhea Disease of thyroid gland (CMS/HCC) Dyspnea Gallbladder disease Genital herpes History of [...] nursing note reviewed. Exam conducted with a ecologist technician present. Vitals: Estimated body mass index is [...] a month ago and it is still painfulwith spotting and unable to complete task. Discussed with patient using Estrace vaginally to help with post menopausal vaginal dryness and painful intercourse. Also, Discussed with patient performing D&C. Patient given ultrasound order to have obtained and patient to schedule with Record Pressman prior to leaving office. Obtained vaginal cultures [...] of: Will Carson DO documented in this [facility]02-13-2025 Telephone encounter Note* Telephone Encounter - Ramesh Jose MA - 11/06/2024 9:53 AM EST 08/20/2024 Continue Percocet 5mg PO BID PRN for intractable pain related to lumbar degenerative spine disease.She is spacing out dosing and lasting longer than 30 days. Oarrs reviewed due now [facility] [id number] Miscellaneous Notes* Telephone Encounter - Ramesh Jose MA - 11/06/2024 9:53 AM EST 08/20/2024 Continue Percocet 5mg PO BID PRN for intractable pain related to lumbar degenerative spine disease.She is spacing out dosing and lasting longer than 30 days. Oarrs reviewed due now documented in this [facility]02-10-2025 History of Present illness Narrative* Amarilis Alvarenga MD - 11/03/2024 10:00 AM EST Assessment/Plan suture removal done documented in this [facility]01-30-2025 History of Present illness Narrative* Amarilis Alvarenga MD - 10/23/2024 3:00 PM EST proAssessment/Plan The patient was prepped and draped [...] closed with 6-0 nylon taking note to diamond picker portion of the levator with each pass. Ice pack applied for ten minutes, Tobradex ointment applied. Patient returned to waiting area in good condition. documented in this encounterHawthorn [facility] [id number] History of Present illness Narrative* Jayne Bianchi NP - 10/22/2024 9:00 AM EST Images from the original note were not included. Subjective Patient ID: Keith Washington is a 54 y.o. female who presents for F/U from having bronchitis. Keith presents today for a F/U from having bronchitis. She would also like to talk about cholesterolmedication. Current Outpatient Medications on File Prior to [...] the morning and 1 tablet in the eveningand 1 tablet before bedtime. Docusate Sodium (DSS) [...] every 8 (eight) hours if needed for musclespasms. Umeclidinium-Vilanterol (Anoro Ellipta) 62.5-25 MCG/ACT aerosol powder [...] the medications described and to seek medical careif they arise. Discussed stress mgmt strategies, social support and importance of healthy diet, exercise and regular sleep habits. Advised on relaxation methods to decrease anxiety and depression. Bronchitis This condition has resolved since last week. No follow-ups on file. documented in this encounterHawthorn Children[facility] Psychiatric [id number] History of Present illness Narrative* Jayne Bianchi NP - 10/15/2024 9:00 AM EST Images from the original note were not [...] the morning and 1 tablet in the eveningand 1 tablet before bedtime. Docusate Sodium (DSS) [...] every 8 (eight) hours if needed for musclespasms. Umeclidinium-Vilanterol (Anoro Ellipta) 62.5-25 MCG/ACT aerosol powder [...] syncope LIVER BIOPSY 2008 OTHER SURGICAL HISTORY 2008 [...] Perles prn for cough. Increase water intake, getplenty of rest. Can take Tylenol prn for [...] controlled. Continue with current medications and I willcontinue to monitor. Goal BP remains less than [...] No follow-ups on file. documented in this [facility]01-08-2025 Telephone encounter Note* Telephone Encounter - Ramesh Jose MA - 10/01/2024 2:52 PM EST The patient lm requesting refill of percocet 08/20/2024 Continue Percocet 5mg PO BID PRN for intractable pain related to lumbar degenerative spine disease.She is spacing out dosing and lasting longer than 30 days. Oarrs reviewed due 09/25/2024 [facility] [id number] Miscellaneous Notes* Telephone Encounter - Ramesh Jose MA - 10/01/2024 2:52 PM EST The patient lm requesting refill of percocet 08/20/2024 Continue Percocet 5mg PO BID PRN for intractable pain related to lumbar degenerative spine disease.She is spacing out dosing and lasting longer than 30 days. Oarrs reviewed due 09/25/2024 documented in this [facility]12-12-2024 History of Present illness Narrative* JASMINE Roberts - 09/04/2024 11:30 AM EST Images from the original note were not included. HPI Cough Additional comments: She has had a cough for 2 weeks, moist and a little green phlegm, has come SOBbut her symptoms seem to be improving and [...] breath. Pertinent negatives include no chest pain, chills,ear pain, fever, rash, rhinorrhea, sore throat or [...] Do you have a medical power of personal injury attorney?: No Current Outpatient Medications on File Prior to Visit Medication Sig Dispense Refill atenolol (Tenormin) 50 MG tablet TAKE 1 TABLET BY MOUTH EVERY DAY 100 tablet 3 clonazePAM (KlonoPIN) 1 MG tablet Take 1 tablet by mouth in the morning and 1 tablet in the eveningand 1 tablet before bedtime. Docusate Sodium (DSS) [...] every 8 (eight) hours if needed for musclespasms. Ventolin HFA 108 (90 Base) MCG/ACT inhaler Inhale 1 puff every 4 (four) hours if needed for wheezing or shortness of breath. [DISCONTINUED] Umeclidinium-Vilanterol (Anoro Ellipta) 62.5-25 MCG/ACT aerosol powder Inhale 1 puff1 (one) time each day at the same [...] mood. Negative for sleep disturbance. The patient isnot nervous/anxious. Objective Physical Exam Constitutional: General: She [...] All needed testing was ordered. Will continue withyearly Medicare Wellness exams. - Lipid panel 2. [...] a living will and durable power of personal injury attorney for healthcare. We discussed telling kurtz people about their advance directives such as close family members, and requested a copy to scan into the patient's EHR. An advance directive packet was offered to the patient. 3. Chronic bronchitis, unspecified chronic bronchitis type ([facility]) Provided pt with prescription for the [...] syndrome The patient is seeing a medical coder for this condition, treatment is deferred to that specialist. Correspondence from that specialist and any available testing were reviewed during today's visit. 5. Cervicalgia This is a chronic medical condition that is stable since last assessment. No changes in treatment are suggested at this time. 6. Disturbance of skin sensation The patient is seeing a medical coder for this condition, treatment is deferred to that specialist. Correspondence from that specialist and any available testing were reviewed during today's visit. 7. Lumbosacral radiculopathy The patient is seeing a medical coder for this condition, treatment is deferred to that specialist. Correspondence from that specialist and any available testing were reviewed during today's visit. 8. Median nerve neuropathy, unspecified laterality The patient is seeing a medical coder for this condition, treatment is deferred to that specialist. Correspondence from that specialist and any available testing were reviewed during today's visit. 9. Notalgia paresthetica The patient is seeing a medical coder for this condition, treatment is deferred to that specialist. Correspondence from that specialist and any available testing were reviewed during today's visit. 10. Post concussion syndrome The patient is seeing a medical coder for this condition, treatment is deferred to that specialist. Correspondence from that specialist and any available testing were reviewed during today's visit. 11. Moderate persistent asthma without complication ([facility]/HCC) Provided pt with prescription for the Anoro. Advised pt to use the maintenance inhaler daily to help with current symptoms, and to try to prevent flare ups. 12. Panlobular emphysema ([facility]) Provided pt with prescription for the Anoro. Advised pt to use the maintenance inhaler daily to help with current symptoms, and to try to prevent flare ups. 13. Essential hypertension ([facility]/HCC) Patient's blood pressure is currently well controlled. Continue with current medications and I willcontinue to monitor. Goal BP remains less than 130/80. - Lipid panel 14. 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 Correspondence from that specialist and any available testing were reviewed during today's visit. 15. Drug-induced adrenocortical insufficiency (CMS/HCC) The patient is seeing a medical coder for this condition, treatment is deferred to [...] at this time. 19. Pancreas, cyst, true ([facility]/HCC) The patient is seeing a medical coder for this condition, treatment is deferred to that specialist. Correspondence from that specialist and any available testing were reviewed during today's visit. 20. Serous cystadenoma of pancreas The patient is seeing a medical coder for this condition, treatment is deferred to that specialist. Correspondence from that specialist and any available testing were reviewed during today's visit. 21. DUB (dysfunctional uterine bleeding) The patient is seeing a medical coder for this condition, treatment is deferred to [...] pain The patient is seeing a medical coder for this condition, treatment is deferred to [...] suggested at this time. 27. Acquired hypothyroidism ([facility]) This is a chronic medical condition that is stable since last assessment. No changes in treatment are suggested at this time. Will continue to monitor with routine labs. 28. Morbid obesity ([facility]) Encouraged portion control, decrease simple sugars and carbohydrates, gradually increase activity level. Aim for gradual steady weight loss. 29. Type 2 diabetes mellitus with stage 2 chronic kidney disease, without long- term current use of insulin ([facility]) Will recheck A1c at follow up [...] at this time. 36. Anxiety and depression ([facility]/HCC) This is a chronic medical condition that is stable since last assessment. No changes in treatment are suggested at this time. 37. Benign paroxysmal positional vertigo due to bilateral vestibular disorder The patient is seeing a medical coder for this condition, treatment is deferred to that specialist. Correspondence from that specialist and any available testing were reviewed during today's visit. 38. Bilateral tinnitus This is a chronic medical condition that is stable since last assessment. No changes in treatment are suggested at this time. 39. Mild episode of recurrent major depressive disorder (HCC) ([facility]/HCC) This is a chronic medical condition that is stable since last assessment. No changes in treatment are suggested at this time. 40. Generalized anxiety disorder ([facility]/HCC) This is a chronic medical condition that is stable since last assessment. No changes in treatment are suggested at this time. 41. History of TIA (transient ischemic attack) The patient is seeing a medical coder for this condition, treatment is deferred to that specialist. Correspondence from that specialist and any available testing were reviewed during today's visit. 42. Chronic low back pain, unspecified back pain laterality, unspecified whether sciatica present The patient is seeing a medical coder for this condition, treatment is deferred to that specialist. Correspondence from that specialist and any available testing were reviewed during today's visit. 43. Meniere's disease of both ears The patient is seeing a medical coder for this condition, treatment is deferred to that specialist. Correspondence from that specialist and any available testing were reviewed during today's visit. 44. Menopause The patient is seeing a medical coder for this condition, treatment is deferred to [...] patient to cut back and soon quit smoking.Health risks of smoking, and benefits of quitting reviewed with the patient. Follow up in about 2 months (around 11/05/2024) for Diabetes. Julia STRICKLAND PA-C documented in this encounterHawthorn Children's Psychiatric [id number] Telephone encounter Note* Telephone Encounter - Ramesh Jose MA - 08/26/2024 9:24 AM EST The pt calls stating that she had a visit on Sunday last when our system was down. Her percocet was not sent. Asking for refill to go to [facility] in [place]. Oarrs reviewed Due Now. [facility] [id number] Miscellaneous Notes* Telephone Encounter - Ramesh Jose MA - 08/26/2024 9:24 AM EST The pt calls stating that she had a visit on Sunday last when our system was down. Her percocet was not sent. Asking for refill to go to [facility] in [place]. Oarrs reviewed Due Now. documented in this [facility]11-27-2024 History of Present illness Narrative* JASMINE Esteban - 08/20/2024 10:00 AM EST Subjective Keith Washington is a 54 y.o. [...] falls -uses a vibration plate -pain today 3/10 DIZZINESS/ALTERATION OF AWARENESS -denies any confusion or [...] choking, chest tightness, shortness of breath, wheezing andstridor. Cardiovascular: Negative for chest pain, palpitations and leg swelling. Gastrointestinal: Negative for abdominal distention, abdominal pain, anal bleeding, blood in stool,constipation, diarrhea, nausea, rectal pain and vomiting. Musculoskeletal: [...] Recent and remote memory are intact. Speech isnormal. Language is fluent with no aphasia. Attention [...] triceps, wrist extensors, wrist extensors, wrist flexor, ranger aide strength 5/5. LUE Strength deltoid, biceps, triceps, wrist extensors, wrist extensors, wrist flexor, ranger aide strength 5/5. RLE Strength illopsoas, quadriceps, tibialis [...] benefit. She has had a recent increase insymptoms due to the nature of her job and increased lifting. 30 day MME/day: 12.5. She has had someincrease in symptoms which she attributes to her job. Stable Anxiety and depression (CMS/[facility]) Follows with Dr. Holder for anxiety [...] arm pain. She denies paresthesia. Cervical spine MRIrevealed discogenic change and mild/moderate facet arthropathy. No evidence of cord compression. BUE EMG revealed CTS. MRI cervical spine 08/12/2024: revealed discogenic change and mild to moderate facet arthropathy inthe cervical spine, no central or foraminal stenosis [...] intractable pain related to lumbar degenerative spine disease.She is spacing out dosing and lasting longer [...] new or worsening symptoms documented in this encounterHawthorn Children's Psychiatric [id number] History of Present illness Narrative* Shanti Christopher MA - 08/19/2024 10:00 AM EST Images from the original note were not included. Reason for Appointment: EMG Patient: Keith Washington : 1970 EMG Computer: [employer] Referring Physician: Michelle Cuenca PA-C EMG: [facility] box spring frame builder: Shanti Christopher [facility] Office Location: [place] Reason for EMG: c/o pain in the upper left arm. Neck pain. Going on for the past 6 months. Hx of CTS release on the right. Hx of DM, not taking blood thinners. Comments: Procedure explained to the patient who expressed understanding. documented in this [facility]10-28-2024 History of Present illness Narrative* JASMINE Esteban - 07/21/2024 10:20 AM EDT Subjective eKith Washington is a 54 y.o. year old [...] choking, chest tightness, shortness of breath, wheezing andstridor. Cardiovascular: Negative for chest pain, palpitations and leg swelling. Gastrointestinal: Negative for abdominal distention, abdominal pain, anal bleeding, blood in stool,constipation, diarrhea, nausea, rectal pain and vomiting. Musculoskeletal: [...] Recent and remote memory are intact. Speech isnormal. Language is fluent with no aphasia. Attention [...] triceps, wrist extensors, wrist extensors, wrist flexor, ranger aide strength 5/5. LUE Strength deltoid, biceps, triceps, wrist extensors, wrist extensors, wrist flexor, ranger aide strength 5/5. RLE Strength illopsoas, quadriceps, tibialis [...] benefit. She has had a recent increase insymptoms due to the nature of her job and increased lifting. 30 day MME/day: 12.5. She has had someincrease in symptoms which she attributes to her job. Symptoms continue at baseline. Anxiety and depression ([facility]) Follows with Dr. Holder for anxiety [...] to assess for a structural lesion including degenerativecervical spine disease which may be contributing to the patient's symptoms. Continue zanaflex 4mg 1/2-1 tab PO QAM and 1 tab PO at bedtime for muscle spasms Continue Percocet 5mg PO BID PRN for intractable pain related to lumbar degenerative spine disease.She is spacing out dosing and lasting longer [...] new or worsening symptoms documented in this [facility]10-15-2024 Telephone encounter Note* Telephone Encounter - Ramesh Jose MA - 07/08/2024 2:11 PM EDT OARRS reviewed Due Now [facility] [id number] Miscellaneous Notes* Telephone Encounter - Ramesh Jose MA - 07/08/2024 2:11 PM EDT OARRS reviewed Due Now documented in this [facility]10-14-2024 History of Present illness Narrative* Amarliis Alvarenga MD - 07/07/2024 2:15 PM EDT Assessment/Plan symptomatic ptosis left eye (OS) Rba explained Levator advance OS documented in this [facility]09-11-2024 Telephone encounter Note* Telephone Encounter - JASMINE Roberts - 06/04/2024 11:52 AM EDT 5 mg dosage sent in for pt. [facility] [id number] Miscellaneous Notes* Telephone Encounter - JASMINE Roberts - 06/04/2024 11:52 AM EDT 5 mg dosage sent in for pt. * Telephone Encounter - Coco Pina MA - 06/04/2024 9:53 AM EDT Pt is wanting to increase her mounjaro to the 5mg as her sugars are still increase, ok to fill for pt documented in this encounterHawthorn Children's Psychiatric [id number] Telephone encounter Note* Telephone Encounter - Coco Pina MA - 06/04/2024 9:53 AM EDT Pt is wanting to increase her mounjaro to the 5mg as her sugars are still increase, ok to fill for pt [facility] [id number] History of Present illness Narrative* Betty Hardy MD - 06/03/2024 1:30 PM EDT Hepatobiliary and Pancreas Surgery Consultation Treatment Team PCP: No primary care provider on file. Medical Oncologist: n/a Radiation Oncologist: n/a [employer] Mill Operator: Dr. Zuniga Chief Complaint: Pancreatic cyst HPI: Keith Washington is a 54 year old female presenting for evaluation of pancreatic cyst. Patient reports [id number] she underwent CT A/P for abdominal pain which demonstrated multiple liver and pancreatic lesions. Patient reports she was told it was cancer and she had 4-6 months prognosis. Patient had subsequent exploratory laparotomy, liver biopsy with excision of palpable mass and pancrease biopsy in [address]with [address]. Medel. No pathology report obtainable but patient reports it was non-cancerous. Patient states she was monitored with CT imaging yearly until 2015. She states the imaging from 2016 demonstrated enlargement of the pancreatic cyst so patient was scheduled for EUS in 2016. Pathology consistent with pauci-cellular specimen with epithelioid cells. No malignant cells. CEA was 1.7 and amylase was 183. Patient reports she underwent MRI every 2 years since biopsy in 2015. Most recent MRI inAugust 2023 demonstrated stable pancreatic head mass measuring 2.7 [...] Anxiety Asthma COPD (chronic obstructive pulmonary disease) (CMS-HCC) Diarrhea DM (diabetes mellitus) (CMS-HCC) Liver lesion TIA (transient ischemic attack) Past Surgical History: Past Surgical History: Procedure Laterality Date BACK SURGERY 2004 CARDIAC CATHETERIZATION SECTION 1990 CHOLECYSTECTOMY 2007 LIVER [...] Resource Strain: Low Risk (04/03/2024) [facility] Overall Financial Resource Strain (CARDIA) Difficulty of Paying Living Expenses: Not very hard Food Insecurity: No Food Insecurity (06/03/2024) Hunger Screening Food Insecurity - Worry: Never True Food Insecurity - Inability: Never True Transportation Needs: No Transportation Needs (04/03/2024) [facility] [facility] PRAPARE - Transportation Lack of Transportation (Medical): No Lack of Transportation (Non-Medical): No Physical Activity: Not on file Stress: No Stress Concern Present (04/03/2024) Received from [facility] of Occupational Health - Occupational Stress Questionnaire [...] oriented to person, place, and time. Appears well- developed and well-nourished. HENT: Normocephalic and atraumatic. Eyes: EOM are normal. Neck: Normal range of motion. No tracheal deviation present. Cardiovascular: Normal rate, regular rhythm and normal heart sounds. Pulmonary/Chest Effort normal and breath sounds normal. Abdominal: Soft. Bowel sounds are normal. She exhibits no distension, no ascites and no mass. Thereis no tenderness. There is no rebound and [...] up to 3.6 cm in greatest dimension. Thelong-term stability and low risk features favors a [...] needed. Betty Hardy MD General Surgery Resident * Celio Brown MD - 06/03/2024 1:30 PM EDT Attending Attestation: I saw the patient. I [...] unless patient becomes symptomatic. [facility] History of Present illness Narrative* Erik Smith MD - 05/27/2024 2:15 PM EDTAssociated Problem(s): Pancreas, cyst, true (CMS/HCC) Patient has seen Dr. Shah and biopsy apparently was done at one time. The CT references this has been stable over the past 12 years, since 2011. Has also seen Dr. Madison. Dr. Reyes in [place] was sent a referral. Also saw a specialist in [place] that did biopsy. She will ow see Dr. 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 Rust, but patient was referred to a specialist. She was wanting referral to someone who would do scope and also biopsy at the same time. * Erik Smith MD - 05/27/2024 2:00 PM EDT Images from the original note were not included. Subjective Patient ID: Keith Washington is a 54 y.o. female who presents for referral . Pt is wanting a referral to jeanne brown NEEDS TO SAY ON REFERRAL URGENT phone # is [phone] Pt states they need paperwork from 2007 where it was discovered and from 2015 with daisy motley report Has been doing Mounjaro and lost weight about 50lbs Current Outpatient Medications on File Prior to Visit Medication Sig Dispense Refill atenolol (Tenormin) 50 MG tablet TAKE 1 TABLET BY MOUTH EVERY DAY 100 tablet 3 clonazePAM (KlonoPIN) 1 MG tablet Take 1 tablet by mouth in the morning and 1 tablet in the eveningand 1 tablet before bedtime. Docusate Sodium (DSS) [...] 0.5 mL under the skin 1 (one) timeper week 2 mL 2 tiZANidine (Zanaflex) 4 MG tablet Take 1 tablet by mouth every 8 (eight) hours if needed for musclespasms. Umeclidinium-Vilanterol (Anoro Ellipta) 62.5-25 MCG/ACT aerosol powder [...] also seen Dr. Madison. Dr. Reyes in [place] was sent a referral. Also saw a specialist in [place] that did biopsy. She will ow see Dr. Brown who can do biopsy at the same time EUS No follow-ups on file. documented in this encounterHawthorn [facility] [id number] Telephone encounter Note* Telephone Encounter - JASMINE Roberts - 05/13/2024 8:17 AM EDT Her MRI showed the pancreatic lesion was stable in size. However, based on the radiodensity of the lesion, the nature of the lesion is indeterminate. Called and left a detailed message, asking her to call back and let us know if she would like referral to General Surgery for a consult. [facility] [id number] Miscellaneous Notes* Telephone Encounter - JASMINE Roberts - 05/13/2024 8:17 AM EDT Her MRI showed the pancreatic lesion was stable in size. However, based on the radiodensity of the lesion, the nature of the lesion is indeterminate. Called and left a detailed message, asking her to call back and let us know if she would like referral to General Surgery for a consult. 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 Pancreas, cyst, true (CMS/HCC) Cyst and pseudocyst of pancreas Mixed hyperlipidemia (CMS/HCC)- Primary Mixed hyperlipidemia Major depressive disorder, recurrent, moderate (CMS/HCC) Major depressive disorder, recurrent episode, moderate Bronchitis Bronchitis, not specified as acute or chronic documented in this encounter [facility]Evaluation note* Diagnosis 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 Pancreas, cyst, true (CMS/HCC) Cyst and pseudocyst of pancreas Mechanical ptosis of left eyelid- Primary documented in this encounter [facility] note* Diagnosis 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 Pancreas, cyst, true (CMS/HCC) Cyst and pseudocyst of pancreas Postoperative care for cataract- Primary Follow-up examination, following other surgery documented in [facility] encounter [facility]* Diagnosis 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 Pancreas, cyst, true (CMS/HCC) Cyst and pseudocyst of pancreas Chronic low back pain, unspecified back pain laterality, unspecified whether sciatica present documented in this encounter [facility]* Diagnosis Serous cystadenoma of pancreas- Primary [facility]* Diagnosis Neoplasm of [...] following other surgery documented in this encounter [facility]* Diagnosis 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 Pancreas, cyst, true (CMS/HCC) Cyst and pseudocyst of pancreas Chronic low back pain, unspecified back pain laterality, unspecified whether sciatica present documented in this encounter [facility]* Diagnosis 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 Pancreas, cyst, true (CMS/HCC) Cyst and pseudocyst of pancreas Encounter for drug therapy- Primary Degeneration of intervertebral disc of lumbar region with discogenic back pain Left arm pain Pain in soft tissues of limb Neck pain Cervicalgia Vertigo Dizziness and giddiness documented in this encounter [facility]* Diagnosis Neoplasm of uncertain behavior [...] Tobacco use disorder documented in this encounter [facility] HealthcareEvaluation noteNo assessment information availableSelect Medical Specialty [facility] Work Phone: Evaluation note* Diagnosis 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 Pancreas, cyst, true (CMS/HCC) Cyst and pseudocyst of pancreas Type 2 diabetes mellitus with stage 2 chronic kidney disease, without long-term current use of insulin (CMS/HCC)- Primary documented in this encounter [facility]* Diagnosis 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 Pancreas, cyst, true (CMS/HCC) Cyst and pseudocyst of pancreas Postoperative follow-up Follow-up examination, following unspecified surgery documented in this encounter [facility]* Diagnosis 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 Pancreas, cyst, true (CMS/HCC) Cyst and pseudocyst of pancreas Degeneration of intervertebral disc of lumbar region with discogenic back pain Neck pain Cervicalgia documented in this encounter [facility]* Diagnosis 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 Pancreas, cyst, true (HCC) Cyst and pseudocyst of pancreas Cystitis- Primary Unspecified cystitis HSV (herpes simplex virus) infection Herpes simplex without mention of complication Acute cystitis without hematuria documented in this encounter [facility]* Diagnosis 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 Pancreas, cyst, true (HCC) Cyst and pseudocyst of pancreas Essential hypertension- Primary Unspecified essential hypertension Pure hypercholesterolemia Pure hypercholesterolemia Type 2 diabetes mellitus with stage 2 chronic kidney disease, without long-term current use of insulin (HCC) Acute non-recurrent pansinusitis Acute exacerbation of chronic obstructive pulmonary disease (COPD) (HCC) Obstructive chronic bronchitis with exacerbation Shortness of breath documented in this encounter [facility]* Diagnosis 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 Pancreas, cyst, true (HCC) Cyst and pseudocyst of pancreas Post-menopause bleeding Postmenopausal bleeding Pelvic cramping Encounter for screening mammogram for malignant neoplasm of breast Urinary tract infection without hematuria, site unspecified Menorrhagia with regular cycle documented in this encounter [facility] HealthcareHospital Discharge instructions No data available for this section [facility] HospitalInstructionsNot on filedocumented in this encounter [facility] HospitalProgress note No data available for this section [facility] HospitalReason for referral (narrative)No reason for referral information availableWexner Medical Center Work Phone: Reason for visit Narrative* Consultation (Routine) - Pending ReviewSpecialtyDiagnoses / ProceduresReferred By ContactReferred To ContactGeneral Surgery Diagnoses 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 [address] [place] [address] Celio Brown MD [address], [facility] [address] [place] [address] Referral IDStatusReasonStart DateExpiration DateVisits RequestedVisits [id number] Review/ [facility] Summary Purpose Family History Relationship Condition Age at Onset Recorded Date/T megan father Disorder of hemostasis Unknown Heart diseaseUnknownmotherDisorder of thyroidUnknownmaternal grandmother Malignant neoplasm of colonUnknownmaternal grandfatherHeart diseaseUnknown Advance Directives No Advanced Directives Records FoundNo Advanced Directives Records FoundNo Advanced Directives Records FoundNo Advanced Directives Records FoundNo Advanced Directives Records FoundNo Advanced Directives Records FoundNo Advanced Directives Records FoundNo Advanced Directives Records Found Additional Source Comments INFORMATION SOURCE (unrecogn ized section and content) DATE CREATED AUTHOR 11/16/2021 [facility] Advertising Production Manager DATE CREATED AUTHOR AUTHOR'S ORGANIZ ATION 08/16/2022 [facility] DATE CREATED AUTHOR AUTHOR'S ORGANIZ ATION 06/06/2023 [facility] DATE CREATED AUTHOR AUTHOR'S ORGANIZ ATION 06/04/2024 [facility] DATE CREATED AUTHOR AUTHOR'S ORGANIZ ATION 06/05/2024 [facility] DATE CREATED AUTHOR AUTHOR'S ORGANIZ ATION 05/06/2025 [facility] DATE CREATED AUTHOR AUTHOR'S ORGANIZ ATION 06/17/2025 [facility] DATE CREATED AUTHOR AUTHOR'S ORGANIZ ATION 07/15/2025 [facility] EPIC Patient Care team informatio n (unrecognized section and content) Team Status: Active Member Role Status Dates Erik Smith MD Primary Care Provider Active Team Status: Inactive Member Role Status Dates Baron Wallace DO Attending Provider Active S tart: March 01, 2025 End: March 01, 2025 Team Status: Active Member Role Status Dates Erik Smith MD Primary Care Provider Active S tart: March 17, 2025 [facility] ProviderActiveStart: March 17, 2025 Team Status: Inactive Member Role Status Dates Mary Shipley APRN Attending Provider Active Start: May 20, 2025 End: May 20, 2025Richy Ruiz Care ProviderActiveStart: May 20, 2025 End: May 20, 2025Team MemberRelationshipSpecialtyStart DateEnd Date Erik Smith MD [address] [facility] [address] [place] [address] PCP - [facility]04/16/23 Erik Smith MD [address] [facility] [address] [place] [address] PCP - ACO [facility]09/23/23Te MemberRelationshipSpecialtyStart DateEnd Date Erik Smith MD [address] [place] [address] PCP - [facility] Medicine04/16/23 Erik Smith MD [address] [place] [address] [facility]09/23/23Sunday, Vidya, SWIM COACH [address] [place] [address] Licensed Practical NurseArchbold - [facility]03/26/24Te MemberRelationshipSpecialty Start DateEnd Date Erik Smith MD [address] [place] [address] [facility]04/16/23 Erik Smith MD [address] [place] [address] [facility]09/23/23Sunday, Vidya, SWIM COACH [address] [place] [address] Licensed Practical NurseCutler Army Community Hospital Medicine03/26/24Te MemberRelationshipSpecialty Start DateEnd Date Erik Smith MD [address] [place] [address] PCP - [facility]04/16/23 Erik Smith MD [address] [place] [address] PCP - [facility]09/23/23Sunday, Vidya, SWIM COACH [address] [place] [address] Licensed Practical NurseFamily Medicine03/26/24Team MemberRelationshipSpecialty Start DateEnd Date Erik Smith MD [address] [place] [address] PCP - GeneralFamily Medicine04/16/23 Erik Smith MD [address] [place] [address] PCP - [facility]09/23/23SundayVidya LPN [address] [place] [address] Licensed Practical NurseFafall river general hospital Medicine03/26/24Team MemberRelationshipSpecialty Start DateEnd Date Erik Smith MD [address] [place] [address] PCP - GeneralFamily Medicine04/16/23 Erik Smith MD [address] [place] [address] PCP - [facility] [place]09/23/23SundayVidya LPN [address] [place] [address] Licensed Practical Nursemily Medicine03/26/24Te MemberRelationshipSpecialty Start DateEnd Date Erik Smith MD [address] [place] [address] PCP - GeneralFamily Medicine04/16/23 Erik Smith MD [address] [place] [address] PCP - [facility]09/23/23Sunday, Vidya, SWIM COACH [address] [place] [address] Licensed Practical NurseCut[facility] Army Community [facility] Medicine03/26/24Te MemberRelationshipSpecialty Start DateEnd Date Erik Smith MD [address] [place] [address] PCP - GeneralCut[facility] Medicine04/16/23 Erik Smith MD [address] [place] [address] [facility] - [facility]09/23/23Sunday, Vidya, SWIM COACH [address] [place] [address] Licensed Practical NurseArch[facility]03/26/24Te MemberRelationshipSpecialty Start DateEnd Date Erik Smith MD [address] [place] [address] PCP - [facility] Medicine04/16/23 Erik Smith MD [address] [place] [address] [facility] - [facility]09/23/23Sunday, Vidya, SWIM COACH [address] [place] [address] Licensed Practical NurseCut[facility] Army [facility] Medicine03/26/24Te MemberRelationshipSpecialty Start DateEnd Date Erik Smith MD [address] [place] [address] PCP - [facility] Medicine04/16/23 Erik Smith MD [address] [place] [address] PCP - [facility]09/23/23Sunday, PATY DasilvaN [address] [place] [address] Licensed Practical NurseFamily Medicine03/26/24Team MemberRelationshipSpecialty Start DateEnd Date Erik Smith MD [address] [place] [address] PCP - [facility]Cut[facility] Medicine04/16/23 Erik Smith MD [address] [place] [address] PCP - [facility] [place]09/23/23Sunday, MIKEY Dasilva [address] [place] [address] Licensed Practical NurseGeorge C. Grape Community Hospitally Medicine03/26/24Team MemberRelationshipSpecialty Start DateEnd Date Erik Smith MD [address] [place] [address] PCP - GeneralFamily Medicine04/16/23 Erik Smith MD [address] [place] [address] PCP - [facility]09/23/23SundayVidya LPN [address] [place] [address] Licensed Practical NurseFamily Medicine03/26/24Team MemberRelationshipSpecialty Start DateEnd Date Erik Smith MD [address] [place] [address] PCP - Generalmily Medicine04/16/23 Erik Smith MD [address] [place] [address] PCP - [facility]09/23/23 Coco Paula, RN Licensed Practical NurseCutler Army [facility] Medicine10/31/24Te MemberRelationshipSpecialty Start DateEnd Date Erik Smith MD [address] [place] [address] PCP - [facility]04/16/23 Erik Smith MD [address] [place] [address] PCP - [facility]09/23/23 Coco Paula, ASHLEY Licensed Practical NurseArch[facility]10/31/24Te MemberRelationshipSpecialty Start DateEnd Date Erik Smith MD [address] [place] [address] PCP - [facility]04/16/23 Erik Smith MD [address] [place] [address] PCP - [facility]09/23/23 Coco Paula, RN Licensed Practical NurseArch[facility]10/31/24Te MemberRelationshipSpecialty Start DateEnd Date Erik Smith MD [address] [place] [address] PCP - [facility]04/16/23 Erik Smith MD [address] [place] [address] PCP - [facility]09/23/23 Coco Paula, ASHLEY Licensed Practical NurseCutler Army [facility] Medicine10/31/24Te MemberRelationshipSpecialty Start DateEnd Date Erik Smith MD [address] [place] [address] PCP - [facility]Arch[facility]04/16/23 Erik Smith MD [address] [place] [address] PCP - [facility]09/23/23 Coco Paula, ASHLEY Licensed Practical NurseArch[facility]10/31/24Te MemberRelationshipSpecialty Start DateEnd Date Erik Smith MD [address] [place] [address] PCP - [facility]04/16/23 Erik Smith MD [address] [place] [address] PCP - [facility]09/23/23 Coco Paula, ASHLEY Licensed Practical NurseArch[facility]10/31/24Te MemberRelationshipSpecialty Start DateEnd Date Erik Smith MD [address] [place] [address] PCP - [facility]04/16/23 Erik Smith MD [address] [place] [address] PCP - [facility]09/23/23 Coco Paula, RN Licensed Practical NurseFamily Medicine10/31/24Team MemberRelationshipSpecialty Start DateEnd Erik Smith MD [address] [facility] [address] [place] [address] PCP - GeneralFamily Medicine04/16/23 Erik Smith MD [address] [facility] [address] [place] [address] PCP - [facility]09/23/23 Coco Paula, RN Licensed Practical NurseFamily Medicine Lulú Pringle, [facility] 12/10/24Team MemberRelationshipSpecialtyStart DateEnd Erik Smith MD [address] [facility] [address] [place] [address] PCP - Generalmily Medicine04/16/23 Erik Smith MD [address] [facility] [address] [place] [address] PCP - [facility]09/23/23 Lulú Pringle, [facility] 12/10/24 Michelle Cuenca PA [address] [facility] [address] [place] [address] Physician AssistantNeurology12/17/24Team MemberRelationshipSpecialtyStart DateEnd Erik Smith MD [address] [facility] [address] [place] [address] PCP - GeneralFamily Medicine04/16/23 Erik Smith MD [address] [place] [address] PCP - [facility]09/23/23 [facility] 12/10/[address] Cuenca PA [address] [place], [place] [address] Physician AssistantNeurology12/17/24Team MemberRelationshipSpecialtyStart DateEnd Date Erik Smith MD [address] [place] [address] PCP - GeneralCut[facility] Hospital Medicine04/16/23 Erik Smith MD [address] [facility] [address] [place] [address] PCP - [facility]09/23/23 [facility] 12/10/24 Michelle Cuenca PA [address] [place], [place] [address] Physician AssistantNeurology12/17/24 Team Status: Active Member Role Status Dates Erik Smith MD Primary Care Provider Active S tart: December 16, 2024 Isak Castillo MDAttyan ProviderActiveStart: December 16, 2024 Team Status: Inactive Member Role Status Dates Erik Smith MD Primary Care Provider Active S tart: December 26, 2024 End: December 26radha Carson DOAttyan ProviderActiveStart: December 26, 2024 End: December 26, 2024Team MemberRelationshipSpecialtyStart DateEnd Date Erik Smith MD [address] [facility] [address] [place] [address] PCP - GeneralFanyly Medicine04/16/23 Erik Smith MD [address] [place] [address] PCP - [facility]09/23/23 Lulú Pringle, [facility] 12/10/24 [address] Cuenca PA [address] [place] [address] Physician AssistantNeurology12/17/24Team MemberRelationshipSpecialtyStart DateEnd Date Erik Smith MD [address] [facility] [address] [place] [address] PCP - GeneralFamily Medicine04/16/23 Erik Smith MD [address] [facility] [address] [place] [address] PCP - [facility]09/23/23 Lulú Pringle [facility] 12/10/[address] Cuenca PA [address] [place] [address] Physician AssistantNeurology12/17/24Te MemberRelationshipSpecialtyStart DateEnd Date Erik Smith MD [address] [facility] [address] [place] [address] PCP - GeneralFamily Medicine04/16/23 Erik Smith MD [address] [facility] [address] [place] [address] PCP - A[facility]09/23/23 Lulú Pringle, [facility] 12/10/[address] Cuenca PA [address] [place] [address] Physician AssistantNeurology12/17/24Team MemberRelationshipSpecialtyStart DateEnd Date Erik Smith MD [address] [place] [address] PCP - Generalmily Medicine04/16/23 Erik Smith MD [address] [place] [address] PCP - [facility]09/23/23 Lulú Pringle, [facility] 12/10/24 Michelle Cuenca PA Physician AssistantNeurology12/17/24Team MemberRelationshipSpecialtyStart DateEnd Date Erik Smith MD [address] [place] [address] PCP - GeneralGeorge [facility]rape [facility] Hospitally Medicine04/16/23 Erik Smith MD [address] [place] [address] PCP - [facility]09/23/23 Lulú Pringle, SWIM COACH [address] [place] [address] 12/10/24 Michelle Cuenca PA [address] [place] [address] Physician AssistantNeurology12/17/24Team MemberRelationshipSpecialtyStart DateEnd Date Erik Smith MD [address] [place] [address] PCP - GeneralGeorge C. [facility]rape [facility] Hospitally Medicine04/16/23 Erik Smith MD [address] [place] [address] PCP - [facility]09/23/23 Lulú Pringle LPN [address] [place] [address] 12/10/24 Michelle Cuenca PA [address] [place] [address] Physician AssistantNeurology12/17/24Team MemberRelationshipSpecialtyStart DateEnd Date Erik Smith MD [address] [place] [address] PCP - Generalmily Medicine04/16/23 Erik Smith MD [address] [place] [address] PCP - O Reach09/23/23 Lulú Pringle LPN [address] [place] [address] Michelle Cuenca PA [address] [place] [address] Physician AssistantNeurology12/17/24Team MemberRelationshipSpecialtyStart DateEnd Date Erik Smith MD [address] [place] [address] PCP - Generalmily Medicine04/16/23 Erik Smith MD [address] [place] [address] PCP - ACO Reach09/23/23 Michelle Cuenca PA [address] [place] [address] Physician AssistantNeurology12/17/24Team MemberRelationshipSpecialtyStart DateEnd Date Erik Smith MD [address] [place] [address] [facility]/16/23 Erik Smith MD [address] [place] [address] PCP - ACO Reach09/23/23 Michelle Cuenca PA [address] [place] [address] Physician AssistantNeurology12/17/24Team MemberRelationshipSpecialtyStart DateEnd Date Erik Smith MD [address] [place] [address] [facility]/16/23 Erik Smith MD [address] [place] [address] PCP - ACO Reach09/23/23 Michelle Cuenca PA [address] [place] [address] Physician AssistantNeurology12/17/24Team MemberRelationshipSpecialtyStart DateEnd Date Erik Smith MD [address] [place] [address] [facility] - [facility]04/16/23 Erik Smith MD [address] [place] [address] PCP - ACO Reach09/23/23 Michelle Cuenca PA [address] [place] [address] Physician AssistantNeurology12/17/24Team MemberRelationshipSpecialtyStart DateEnd Date Erik Smith MD [address] [place] [address] PCP - GeneralFamily Medicine04/16/23 Erik Smith MD [address] [place] [address] PCP - ACO Reach09/23/23Sunday, MIKEY Dasilva [address] [place] [address] Licensed Practical NurseFamily Medicine Coco Paula, RN [address] [place] [address] Licensed Practical NurseFamily Medicine Lulú Pringle LPN [address] [place] [address] Michelle Cuenca PA [address] [place] [address] Physician AssistantNeurology12/17/24Team MemberRelationshipSpecialtyStart DateEnd Date Erik Smith MD [address] [place] [address] PCP - GeneralFamily Medicine04/16/23 Erik Smith MD [address] [place] [address] PCP - ACO Reach09/23/23SundayVidya LPN [address] [place] [address] Licensed Practical NurseFamily Medicine/Sunday, MIKEY Dasilva [address] [place] [address] Licensed Practical NurseFamily Medicine Coco Paula, RN [address] [place], [place] [address] Licensed Practical NurseFamily Medicine/ Lulú Pringle LPN [address] [place] [address] Michelle Cuenca PA [address] [place] [address] Physician AssistantNeurology12/17/24Team MemberRelationshipSpecialtyStart DateEnd Date Erik Smith MD [address] [place] [address] PCP - GeneralFamily Medicine04/16/23 Erik Smith MD [address] [place] [address] PCP - ACO Reach09/23/23 Michelle Cuenca PA [address] [place] [address] Physician AssistantNeurology12/17/24Team MemberRelationshipSpecialtyStart DateEnd Date Erik Smith MD [address] [place] [address] PCP - GeneralFamily Medicine04/16/23 Erik Smith MD [address] [place] [address] PCP - ACO Reach09/23/23 Michelle Cuenca PA [address] [facility] [address] [place] [address] Physician AssistantNeurology12/17/24 Reason for Visit (unrecogniz ed section and content) ReasonCommentsPtosisReasonCommentsBack PainReasonCommentsBack PainReasonComments CoughMarjan has had a cough for 2 weeks, moist and a little green phlegm, has come SOB but her symptoms seem to be improving and is not sure if she needs an ATB. ReasonCommentsreferralReasonCommentsProcedureReasonCommentsPost-op Follow-up ReasonCommentsMenopausebleeding with intercourseReasonCommentsEyelid Problem ReasonCommentsMed RefillReasonCommentsPost-op VisitReasonCommentsMed Change RequestReasonCommentsMenopausePt present today for post menopausal spotting and cramping. Goals (unrecognized section and content) Goals may [...] BE BASED ON THE PRIMARY CLINICAL RECORDS. [employer] provides no warranty or guarantee of the accuracy or completeness of information in this document.
== END 2025-08-19 15:25 | disposition home or self-care (01) ==
LOC: LAB 15:24
PROVIDERS: Visit Provider Physician Assistant
DX: Z01.419 Encounter for gynecological examination (general) (routine) without abnormal findings (principal)
CPT/HCPCS: 87624; 88175

== ENCOUNTER 2025-08-28 15:06 | Emergency (ER) | payer MEDICARE, MEDICAID, SELFPAY ==
[2025-08-28 15:16] VITALS: BP 147/73; PULSE 66; TEMP 36.8; O2SAT 97; BMI 37.6
--- NOTE | 2025-08-28 16:00 | ED.GENADUL1 ---
HPI HPI - General Adult General Chief complaint: Extremity Problem, Nontraumatic Stated complaint: LEFT HAND AND ARM ARE NUMB Time Seen by Provider: 08/28/25 15:20 Source: patient Mode of arrival: walk-in History of Present Illness HPI narrative: Patient is a 55-year-old female that presents with a few months of right lower extremity heaviness, numbness that started at her medial thigh down to her knee and then progressed recently to the top of the foot that she describes as [id number]. She has also been feeling some lightening sensations in her right foot. She does have a history of what sounds like a microdiscectomy in 2003, levels unknown. She follows with a Neurologist more recently but has not had updated MRIs. Within the last week she started to have some intermittent tingling that travels from her Left arm down to her hand and fingers. Related Data Home Medications ?Medication ?Instructions ?Recorded ?Confirmed atenolol 50 mg tablet 25 mg PO DAILY 03/24/24 08/28/25 empagliflozin 10 mg tablet 10 mg PO DAILY 03/24/24 08/28/25 (Jardiance) escitalopram oxalate 20 mg tablet 20 mg PO .qhs 03/24/24 08/28/25 levothyroxine 75 mcg tablet 75 mcg PO QAM 03/24/24 08/28/25 omeprazole 20 mg capsule,delayed 20 mg PO QAM PRN reflux 03/24/24 08/28/25 release oxycodone-acetaminophen 5 mg-325 1 tab PO Q12H PRN pain 03/24/24 08/28/25 mg tablet potassium chloride 20 mEq 20 meq PO DAILY 03/24/24 08/28/25 tablet,extended release(part/cryst) (Klor-Con M) albuterol sulfate 90 mcg/actuation 2 inh inhalation Q8H PRN shortness 12/16/24 08/28/25 aerosol inhaler of breath or wheezing cholecalciferol (vitamin D3) 1,250 1,250 mcg PO QWEEK 12/16/24 08/28/25 mcg (50,000 unit) capsule clonazepam 1 mg tablet 1 mg PO Q8H 12/16/24 08/28/25 garlic 5,000 mcg tablet 5 mg PO DAILY 12/16/24 08/28/25 lactobacillus combo no.11 15 1 cap PO DAILY 12/16/24 08/28/25 billion cell sprinkle capsule (Probiotic) meclizine 50 mg tablet 50 mg PO BID PRN dizziness 12/16/24 08/28/25 milk thistle 150 mg capsule 150 mg PO DAILY 12/16/24 08/28/25 multivitamin (Daily Multi-Vitamin 1 tab PO DAILY 12/16/24 08/28/25 tablet) red yeast rice 600 mg capsule 600 mg PO DAILY 12/16/24 08/28/25 tirzepatide 5 mg/0.5 mL 5 mg subcut .q 21 days 12/16/24 08/28/25 subcutaneous pen injector (Mounjaro) biotin 1 mg capsule 1 mg PO DAILY 08/28/25 08/28/25 tizanidine 4 mg tablet 4 mg PO Q12H PRN muscle spasticity 08/28/25 08/28/25 Previous Rx's ?Medication ?Instructions ?Recorded ondansetron 4 mg disintegrating 4 mg PO Q6H PRN nausea and 03/24/24 tablet vomiting #20 tabs phenazopyridine 200 mg tablet 200 mg PO Q8H PRN pain #15 tabs 03/01/25 (Pyridium) Allergies Allergy/AdvReac Type Severity Reaction Status Date / Time cephalexin (From Keflex) Allergy Intermediate Rash Verified 08/28/25 15:16 moxifloxacin (From Avelox) Allergy Intermediate Abdominal Verified 08/28/25 15:16 Pain nitrofurantoin (From Allergy Intermediate Rash Verified 08/28/25 15:16 Macrobid) morphine Allergy Vomiting Verified 08/28/25 15:16 Opioid HPI Opioid Management Most Recent Opioid Data: Last Pain Scale 5 08/28/25, 15:20 Review of Systems ROS Status of ROS 10 or more systems reviewed and unremarkable except as noted in history and below [facility] Medical History (Updated 08/28/25 @ 15:59 by JASMINE Chino) COTTER (dyspnea on exertion) ?R06.09 - Other forms of dyspnea (ICD-10) Disc disease with myelopathy GERD (gastroesophageal reflux disease) ?K21.9 - Gastro-esophageal reflux disease without esophagitis (ICD-10) Chronic glossitis ?K14.0 - Glossitis (ICD-10) Edentulous ?K08.109 - Complete loss of teeth, unspecified cause, unspecified class (ICD-10) Gastritis ?K29.70 - Gastritis, unspecified, without bleeding (ICD-10) Chronic sinusitis ?J32.9 - Chronic sinusitis, unspecified (ICD-10) M?ni?re's disease ?H81.09 - Meniere's disease, unspecified ear (ICD-10) Tinnitus ?H93.19 - Tinnitus, unspecified ear (ICD-10) Benign neoplasm of liver ?D13.4 - Benign neoplasm of liver (ICD-10) Hearing loss ?H91.90 - Unspecified hearing loss, unspecified ear (ICD-10) Hypercholesterolemia ?E78.00 - Pure hypercholesterolemia, unspecified (ICD-10) Liver cyst ?K76.89 - Other specified diseases of liver (ICD-10) Pancreatic cyst ?K86.2 - Cyst of pancreas (ICD-10) Transient ischemic attack (2015) ?G45.9 - Transient cerebral ischemic attack, unspecified (ICD-10) Carpal tunnel syndrome ?G56.00 - Carpal tunnel syndrome, unspecified upper limb (ICD-10) Fibromyalgia ?M79.7 - Fibromyalgia (ICD-10) Neck pain ?M54.2 - Cervicalgia (ICD-10) Back pain ?M54.9 - Dorsalgia, unspecified (ICD-10) Depression ?F32.A - Depression, unspecified (ICD-10) Panic attacks ?F41.0 - Panic disorder [episodic paroxysmal anxiety] (ICD-10) Anxiety ?F41.9 - Anxiety disorder, unspecified (ICD-10) Chronic obstructive pulmonary disease ?J44.9 - Chronic obstructive pulmonary disease, unspecified (ICD-10) Vertigo ?R42 - Dizziness and giddiness (ICD-10) Dyspareunia Menopause ?Z78.0 - Asymptomatic menopausal state (ICD-10) IBS (irritable bowel syndrome) ?K58.9 - Irritable bowel syndrome, unspecified (ICD-10) Chronic kidney disease ?N18.9 - Chronic kidney disease, unspecified (ICD-10) Constipation ?K59.00 - Constipation, unspecified (ICD-10) Palpitations ?R00.2 - Palpitations (ICD-10) Hypertension ?I10 - Essential (primary) hypertension (ICD-10) Diabetes ?E11.9 - Type 2 diabetes mellitus without complications (ICD-10) Hypothyroidism ?E03.9 - Hypothyroidism, unspecified (ICD-10) Surgical History (Updated 12/16/24 @ 13:42 by Mary Aceves NP) History of carpal tunnel release ?Z98.890 - Other specified postprocedural states (ICD-10) H/O sinus surgery ?Z98.890 - Other specified postprocedural states (ICD-10) H/O eye surgery ?Z98.890 - Other specified postprocedural states (ICD-10) H/O section ?Z98.891 - History of uterine scar from previous surgery (ICD-10) History of cardiac catheterization ?Z98.890 - Other specified postprocedural states (ICD-10) History of liver biopsy ?Z98.890 - Other specified postprocedural states (ICD-10) H/O biopsy of pancreas ?Z98.890 - Other specified postprocedural states (ICD-10) H/O Spinal surgery ?Z98.890 - Other specified postprocedural states (ICD-10) History of hernia repair ?Z98.890 - Other specified postprocedural states (ICD-10) ?Z87.19 - Personal history of other diseases of the digestive system (ICD-10) History of colonoscopy ?Z98.890 - Other specified postprocedural states (ICD-10) History of cholecystectomy ?Z90.49 - Acquired absence of other specified parts of digestive tract (ICD-10) Family History (Updated 12/16/24 @ 13:21 by Mary Aceves NP) Other Family history of heart disease Family history of hypertension Family history of myocardial infarction Social History (Updated 12/16/24 @ 13:12 by Mary Aceves NP) Within the past year, how often did you have a drink containing alcohol: never Score interpretation: A score less than 3 is consistent with normal alcohol consumption. Smoking status: Current every day smoker What tobacco products do you use: cigarettes Packs per day: 1 Years smoked: 15 Smoking pack-years: 15.00 Non-prescribed substance use: cannabis (any form) Highest level of school completed/degree received: high school graduate Little interest or pleasure in doing things: not at all Feeling down, depressed, or hopeless: not at all Exam Narrative Exam Narrative: General: No distress, age-appropriate Skin: Warm, dry, no pallor. No rash. Head: Normocephalic, atraumatic. Neck: Supple, non-tender. Eye: Pupils are equal, round and EOMI. No scleral icterus. Ears, Nose, Mouth, and Throat: No nasal mucosal hypertrophy. Oral mucosa is moist, no posterior oropharynx erythema, uvula is mid-line Cardiovascular: Regular Rate and Rhythm without murmur, gallop or rub. Respiratory: No accessory muscle use or respiratory distress. Lungs are clear to auscultation, no wheezing, rales or rhonchi Chest Wall: no tenderness Back: No midline thoracic tenderness, midline lumbar tenderness. 4+/5 left lower extremity DF/PF, knee flexion/extension, hip flexion/extension secondary to pain. 5/5 right lower extremity. Bilateral upper extremities 5/5 strength. Sensation intact distally with light touch bilateral upper and lower extremities. Musculoskeletal: Full ROM of all extremities, no calf or popliteal tenderness Neurological: A&O x4. No cranial nerve dysfunction observed. No truncal ataxia. Moves all extremities. Sensation intact. Psychiatric: Cooperative and interactive. Normal mood and affect. Constitutional Vital Signs, click to edit/add: Last Vital Signs Temp 98.3 F 08/28/25 15:16 Pulse 66 08/28/25 15:16 Resp 18 08/28/25 15:16 BP 147/73 H 08/28/25 15:16 Pulse Ox 97 08/28/25 15:16 O2 Del Method Room Air 08/28/25 15:16 Documenting provider has reviewed patient's vital signs: yes Course Vital Signs Vital signs: Vital Signs Temperature 98.3 F 08/28/25 15:16 Pulse Rate 66 08/28/25 15:16 Respiratory Rate 18 08/28/25 15:16 Blood Pressure 147/73 H 08/28/25 15:16 Pulse Oximetry 97 08/28/25 15:16 Oxygen Delivery Method Room Air 08/28/25 15:16 Temperature 98.3 F 08/28/25 15:16 Pulse Rate 66 08/28/25 15:16 Respiratory Rate 18 08/28/25 15:16 Blood Pressure 147/73 H 08/28/25 15:16 Pulse Oximetry 97 08/28/25 15:16 Oxygen Delivery Method Room Air 08/28/25 15:16 Medical Decision Making MDM Narrative Medical decision making narrative: The patient is a 55-year-old female presenting with a several-month history of right lower extremity heaviness, numbness, and intermittent tingling, which has recently progressed from the medial thigh to the top of the foot, with associated uibp-pfv-[id number] sensations. She also reports lightening-like sensations in her right foot and now has developed similar symptoms in the left arm, down to her hand and fingers. The patient's presentation is concerning for a possible neurological etiology, such as radiculopathy or a cervical spine issue, given her past history of microdiscectomy in 2003 and the bilateral pattern of symptoms. I explained to the patient that her symptoms could potentially be related to a pinched nerve, either in the cervical or lumbar spine, and that this would be a reasonable consideration in the differential diagnosis. The patient voiced significant anxiety regarding the possibility of a blood clot, particularly in her left lower extremity. However, her symptoms and lack of associated risk factors (e.g., no history of DVT/PE, recent surgery, immobilization, or cancer, and absence of swelling, erythema, or warmth) make a deep vein thrombosis (DVT) or pulmonary embolism (PE) highly unlikely. I reassured the patient that a blood clot does not fit the clinical picture based on her history and exam, but offered to conduct an ultrasound of the left lower extremity for her peace of mind. Additionally, the patient was concerned about the tingling in her left arm and hand, and I recommended a full workup including blood tests, chest X-ray, and EKG to rule out a potential cardiovascular cause (e.g., myocardial infarction) due to her concern. Despite extensive counseling on the risks of not pursuing these workups, the patient declined any further diagnostic tests or imaging at this time. I emphasized the importance of follow-up and encouraged the patient to return to the ER if her symptoms worsened or new concerns developed. I did give her the name of the Neurosurgery practice with [facility] to call for follow up for further evaluation outpatient. Patients vitals stable, she was in no distress, pain controlled, and was discharged with appopriate follow up. Differential Diagnosis Differential Diagnosis: Cervical/Lumbar radiculopathy, HI, DVT Discharge Plan Discharge Chief Complaint: Extremity Problem, Nontraumatic Clinical Impression: Cervical radiculopathy, Lumbar radiculopathy Patient Disposition: Home, Self-Care Time of Disposition Decision: 15:58 Condition: Good Mode of Transportation: Private Vehicle Prescriptions / Home Meds: No Action biotin 1 mg capsule 1 mg PO DAILY tizanidine 4 mg tablet 4 mg PO Q12H PRN (Reason: muscle spasticity) atenolol 50 mg tablet 25 mg PO DAILY Jardiance 10 mg tablet 10 mg PO DAILY escitalopram oxalate 20 mg tablet 20 mg PO .qhs levothyroxine 75 mcg tablet 75 mcg PO QAM omeprazole 20 mg capsule,delayed release(DR/EC) 20 mg PO QAM PRN (Reason: reflux) Rx Instructions: before meal oxycodone-acetaminophen 5-325 mg tablet 1 tab PO Q12H PRN (Reason: pain) potassium chloride [Klor-Con M20] 20 mEq tablet,ER particles/crystals 20 meq PO DAILY ondansetron 4 mg tablet,disintegrating 4 mg PO Q6H PRN (Reason: nausea and vomiting) Qty: 20 0RF clonazepam 1 mg tablet 1 mg PO Q8H meclizine 50 mg tablet 50 mg PO BID PRN (Reason: dizziness) red yeast rice 600 mg capsule 600 mg PO DAILY Rx Instructions: give with meal/snack milk thistle 150 mg capsule 150 mg PO DAILY Rx Instructions: give with meal/snack garlic 5,000 mcg tablet 5 mg PO DAILY multivitamin [Daily Multi-Vitamin] Tablet 1 tab PO DAILY cholecalciferol (vitamin D3) 1,250 mcg (50,000 unit) capsule 1,250 mcg PO QWEEK Probiotic 15 billion cell capsule, sprinkle 1 cap PO DAILY Rx Instructions: do not crush/chew/cut; swallow whole OR may open and sprinkle in cold drink/food albuterol sulfate 90 mcg/actuation HFA aerosol inhaler 2 inh inhalation Q8H PRN (Reason: shortness of breath or wheezing) Mounjaro 5 mg/0.5 mL pen injector 5 mg SUBCUT .q 21 days phenazopyridine [Pyridium] 200 mg tablet 200 mg PO Q8H PRN (Reason: pain) Qty: 15 0RF Print Language: Slovenian Instructions: Lumbar Radiculopathy (ED), Cervical Radiculopathy (ED) Referrals: Physician,Non-Staff, MD [Primary Care Provider] - 1 week Turovskaya,Yoko, DIGITAL ASSET COORDINATOR [Nurse Practitioner, Neurosurgery] - As soon as possible Discharge Date/Time: 08/28/25 16:30
--- OUTSIDE RECORDS SUMMARY | 2025-08-28 16:19 | XMS_ITS | CCD ---
Author Organization [facility] CliniSymi Care Team Providers Care Cryptologic Linguist Name Role Phone GUIDO, DR HUMPHREY Butler [...] Primary Care Unavailable ARIAS, JAYNE Attending Unavailable RAIAS, JAYNE Admitting Unavailable Zieber, DR Brantley Consulting [...] Attending Unavailable ERIK SMITH Referring Unavailable Sunday COOKING CASING AND DRYING SUPERVISOR, Vidya Unavailable Coco Paula RN Unavailable Unavailable Primary Care Provider [facility] Nisa RAMIREZ, Coco Unavailable Parrott MIKEY, Lulú Unavailable Unavailable Michelle Nunez Unavailable Erik Smith MD Primary Care Provider [phone] Isak Castillo MD Attending Provider [phone] Will Carson DO Attending Provider Michelle Nunez Unavailable Baron Wallace DO Attending Provider Parrott MIKEY, Lulú Unavailable Michelle Nunez Unavailable Pino JENSEN, Lulú Unavailable Erik Smith MD Primary Care Provider Isak Castillo MD Attending Provider [phone] Mary Shipley APRN Attending Provider Will Carson [...] Attending Unavailable JAYNE BIANCHI Attending Unavailable Sunday COOKING CASING AND DRYING SUPERVISOR, Vidya Unavailable Coco Paula RN Unavailable Sunday COOKING CASING AND DRYING SUPERVISOR, Vidya Unavailable Allergies Allergy ClassificationReported Allergen(s)Allergy TypeDate of OnsetReaction(s) Facility (2 sources)Azithromycin; Translations: [Zithromax][facility]rug AllergyThe [facility] ([facility])CephalexinDrug Lsrhpkr24-32-1665Fjj [facility] (1 source)CorticosteroidsDrug allergy (disorder)The [facility] (4 sources)Morphine; Translations: [morphine]Drug Qlilzwy44-77-1646Thzvilu ReactionThe [facility] (2 sources)moxifloxacin; Translations: [Avelox]Drug AllergyThe [facility] (2 sources)Nitrofurantoin; Translations: [Macrobid]Drug AllergyThe [facility] (20 sources)Azithromycin; Translations: [azithromycin]Drug Ybtvgep30-68-5860 Eruption of skin (disorder), Unknown, Rash, Other (See Comments)[facility] [place] (20 sources)Morphine; Translations: [morphine]Drug Bonhqdl95-79-9492Jelpbyzu (disorder), Unknown, Other (See Comments), VomitingGeneral [facility] [place] (20 sources)moxifloxacin; Translations: [moxifloxacin]Drug Byljoqc81-51-4619 Eruption of skin (disorder), Rash, Unknown, Other (See Comments)[facility] [place] (2 sources)NITROFURANTOIN, MACROCRYSTALS / Nitrofurantoin, Monohydrate; Translations: [nitrofurantoin]Drug Hgspfex43-99-1856Yupa irritation (disorder), Rash, Other (See Comments)[facility] [place] (20 sources)Cephalexin; Translations: [CEPHALEXIN]Drug Ljkmrsu16-98-6526RwtgCH[facility] (20 sources)Corticosteroids and derivativesDrug Yfftyei16-82-9994ZiufburQDEC [facility] (20 sources)Nitrofurantoin; Translations: [NITROFURANTOIN]Drug Htxqlfo00-04-3891 Unknown, Other (See Comments), [facility] (20 sources)NitrofurantoinDrug Zhjywnv52-17-6474FsqqszpKCKF Healthcare (2 sources)Corticosteroids; Translations: [CORTICOSTEROIDS (GLUCOCORTICOIDS)] Propensity to adverse reactions to drug (disorder)97-06-0998Cppye (See Comments) [facility] (1 source)NITROFURANTOIN MONOHYD/M-CRYST; Translations: [NITROFURANTOIN MONOHYD/M-CRYST]Propensity to adverse reactions to drug (disorder)11-22-2015 [facility] (1 source)CephalexinDrug Idknqtw64-56-0550Skfh[facility]yxw[facility] ([facility] source)MorphineDrug Romgdfh27-43-0624LhwtaqvkoLima [facility] (1 source)moxifloxacinDrug Afjzgls41-19-0026UhdrniqgcLima [facility] (1 source)NitrofurantoinDrug Tmqndnh46-11-9148KgieshtyzLima [facility] Medications Current Medications MedicationDrug Class(es)DatesSig (Normalized)Sig (Original)acetaminophen 325 mg / oxyCODONE hydrochloride 5 mg oral tablet (20 sources)Opioid AgonistStart: 03-09-2025 End: 55-91-4292ntcv 1 tablet by mouth every twelve hours as needed for pain Oxycodone-Acetaminophen (Percocet) 5-325 mg tablet Active 1 TAB PO Every 12 hours as needed for pain, severe 60 April 13, 2025 Complies with drug therapyStart: 01-20-2025 End: 57-83-5286wwql 1 tablet by mouth twice daily as needed for painoxyCODONE- acetaminophen (Percocet) 5-325 MG tablet Indications: 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 , Neck pain Take 1 tablet by mouth 2 (two) times a day as needed for severe pain 60 tablet 01/20/2025 02/19/2025 ActiveStart: 12-11-2024 End: 53-61-8130wxgb 1 tablet by mouth onceoxyCODONE-acetaminophen (Percocet) 5- 325 MG tablet Indications: Chronic low back pain, unspecified back pain laterality, unspecified whether sciatica present Take 1 tablet by mouth every 12 (twelve) hours PRN due now 60 tablet 12/11/2024 01/10/2025 ActiveStart: 08-26-2024 End: 74-32-1513wcev 1 tablet by mouth onceoxyCODONE-acetaminophen (Percocet) 5- 325 MG tablet Indications: Chronic low back pain, unspecified back pain laterality, unspecified whether sciatica present Take 1 tablet by mouth every 12 (twelve) hours PRN due now 60 tablet 11/06/2024 12/09/2024 Discontinued (Reorder)Start: 97-11-0413ouqv 1 tablet by mouth onceoxyCODONE-acetaminophen (Percocet) 5-325 MG tablet Indications: Chronic low back pain, unspecified back pain laterality, unspecified whether sciatica present Take 1 tablet by mouth every 12 (twelve) hours PRN 60 tablet 06/04/2024 ActiveStart: 04-28-2024 End: 29-83-6742fbwo 1 tablet by mouth onceoxyCODONE-acetaminophen (Percocet) 5- [...] mouth every 12 (twelve) hours. PRN 0 Hskyauhxx673234 200 actuat albuterol 0.09 mg/actuat metered dose inhaler (20 sources)beta2-Adrenergic AgonistStart: 37-84-1922vqtf 1 puff(s) by inhalation every four to six hours as neededAlbuterol Sulfate 90 mcg/actuation HFA aerosol inhaler Active 1 PUFF INHALATION EVERY 4-6 HOURS as needed May 20, 2025 12:00am Complies with drug therapyStart: 88-36-4995tiav 1 puff(s) by inhalation every four hours for wheezingalbuterol HFA (Ventolin HFA) 90 mcg/act inhaler Indications: Shortness of breath Inhale 1 puff every 4 (four) hours if needed for wheezing or shortness of breath 18 g 11 04/29/2025 ActiveStart: 10-12-2022 End: 00-76-1015adry 1 puff(s) by inhalation every four hours [...] 12:00am Complies with drug therapyStart: 10-12-2022 End: 79-75-7432qrvlthikmpa-albuterol (Duo-Neb) 0.5-2.5 mg/3 mL nebulizer solution Indications: Acute exacerbation of chronic obstructive pulmonary disease (COPD) (HCC) , Shortness of breath Take 3 mL by nebulization every 6 (six) hours PRN 180 mL 11 04/29/2025 ActiveStart: 88-19-6900agghrhpxg- ipratropium See Instructions, Refill(s) 0, 2 inhalations 6 times per day Start Date: 03/15/20 Status: Orderedamoxicillin 875 mg oral tablet (2 sources)Penicillin-class AntibacterialStart: 04-29-2025 End: 31-35-8795iozr 1 tablet by mouth in the morningamoxicillin (Amoxil) 875 MG tablet Indications: Acute non-recurrent pansinusitis Take 1 tablet (875mg) by mouth in the morning and 1 tablet (875 mg) before bedtime. Do all this for 10 days. 20 tablet 04/29/2025 05/09/2025 Activeatenolol 50 mg oral tablet (20 sources)beta-Adrenergic BlockerStart: 71-92-8428pmfp 1 tablet by mouth once dailyatenolol (Tenormin) 50 MG tablet Indications: Essential hypertension TAKE 1 TABLET BY MOUTH EVERY DAY 100 tablet 3 12/02/2024 ActiveStart: 72-97-6949erso 1 tablet by mouth once dailyatenolol (Tenormin) 50 MG tablet Indications: Essential hypertension (CMS/HCC) TAKE 1 TABLET BY MOUTH EVERY DAY 100 tablet 3 11/15/2023 ActiveStart: 84-83-9685vigc 1 tablet by mouth once dailyatenolol 50 mg Tab 50 mg = 1 tab(s), Oral, Daily, Refills(s) 0 Start Date: 03/15/20 Status: Orderedazithromycin 250 mg oral tablet (2 sources)Macrolide AntimicrobialStart: 10-15-2024 End: 25-93-3044wjda 2 tablets by mouth once daily, then take 1 tablet by mouth once dailyazithromycin (Zithromax) 250 MG tablet Indications: Bronchitis Take 2 tablets (500 mg) by mouth Daily for 1 day, THEN 1 tablet (250 mg) Daily for 4 days. 6 tablet 10/15/2024 10/20/2024 Activeciprofloxacin 500 mg oral tablet (2 sources)Quinolone AntimicrobialStart: 03-11-2025 End: 36-04-3098xtwa 1 tablet by mouth in the morningciprofloxacin (Cipro) 500 MG tablet Indications: Urinary Tract Infection Take 1 tablet (500 mg) by mouth in the morning and 1 tablet (500 mg) before bedtime. Do all this for 7 days. 10 tablet 03/11/2025 03/18/2025 ActiveclonazePAM 1 mg oral tablet (20 sources)BenzodiazepineStart: 89-50-8245xyci 1 tablet by mouth three times dailyClonazepam [...] oral tablet (20 sources)Sodium-Glucose Cotransporter 2 InhibitorStart: 95-17-4615Kinzkwmfq 10 MG Indications: Type 2 diabetes mellitus with stage 2 chronic kidney disease, without long-term current use of insulin (HCC) TAKE 1 TABLET BY MOUTH EVERY DAY 100 tablet 3 10/27/2024 ActiveStart: 50-48-7141lksxqjdcdgbxo (Jardiance) 10 MG Indications: Type 2 diabetes mellitus with stage 2 chronic kidney disease, without long-term current use of insulin ([facility]/HCC) TAKE 1 TABLET BY MOUTH EVERY DAY FOR 90 DAYS 100 tablet 3 11/15/2023 Activeescitalopram 20 mg oral tablet (20 sources)Serotonin Reuptake InhibitorStart: 25-65-7011alaw 1 tablet by mouth once dailyescitalopram (Lexapro) 20 MG tablet Take 1 tablet by mouth 1 (one) time each day. 03/21/2023 Activeestradiol 0.1 mg/ml vaginal cream (20 sources)EstrogenStart: 19-99-7048cunvsqrss (Estrace) 0.1 MG/GM vaginal cream PLEASE SEE ATTACHED FOR DETAILED DIRECTIONS 11/10/2024 ActiveStart: 11-10-2024 End: 88-07-5564agiblhqsu (Estrace) 0.1 MG/GM vaginal cream Indications: Menopausal state Insert 2 g into the vagina Daily Apply 1/2 APPLICATOR daily for 2 weeks, then twice weekly thereafter for maintenance. 42.5 g3 11/10/2024 12/10/2024 Activefluticasone propionate 0.05 mg/actuat metered dose nasal spray (20 sources)CorticosteroidStart: 57-75-1925uiid 1 spray(s) nasal route once dailyFluticasone Propionate (Flonase Allergy Relief) 50 mcg/actuation spray,suspension Active 1 SPRAY INTRANASAL Daily May 20, 2025 12:00am administer into each nostril Complies with drug therapyfluticasone (Flonase) 50 MCG/ACT nasal spray 1 spray 1 (one) time each day at the same time PRN Active fluticasone 0.05 mg/inh Nasal [place] (1 source)Start: 33-94-8933dsfcfzsjkni 0.05 mg/inh Nasal [place] 1 spray(s), Nasal, BID, Refill(s) 0 Start Date: 03/15/20 Status:Orderedibuprofen 800 mg oral tablet (20 sources)Nonsteroidal Anti-inflammatory DrugStart: 44-68-5568iigkaycrq 800 MG tablet PRN 06/06/2023 ActiveStart: 38-78-8809myqcjgcht 800 MG tablet PRN 06/06/2023 Activeinulin 200 mg / lactobacillus rhamnosus gg [id number] unt oral capsule (1 source)Start: 60-99-6397Wyswgpqc. Rhamnosus Gg-Inulin 10 billion cell -200 mg capsule Active CAP PO May 20, 2025 12:00am Complies with drug therapy Lactobacillus-Inulin (CULTURELLE DIGESTIVE DAILY PO) (20 sources)take 1 tablet by mouth once dailyLactobacillus-Inulin (CULTURELLE DIGESTIVE DAILY PO) Take 1 tablet by mouth 1 (one) time each day Active levothyroxine sodium 0.075 mg oral tablet (20 sources)l-ThyroxineStart: 39-32-9735ssnn 1 tablet by mouth once daily in the morninglevothyroxine (Synthroid, Levoxyl) 75 MCG tablet Indications: Acquired hypothyroidism TAKE 1 TABLETBY MOUTH ONCE EVERY MORNING ON AN EMPTY STOMACH 90 tablet 4 02/26/2025 ActiveStart: 27-92-3424wzep 1 tablet by mouth once daily in the morninglevothyroxine (Synthroid, Levoxyl) 75 MCG tablet Indications: Acquired hypothyroidism (CMS/HCC) TAKE 1 TABLET BY MOUTH ONCE EVERY MORNING ON AN EMPTY STOMACH 100 tablet 3 01/30/2024 ActiveStart: 27-75-1869pulz 1 tablet by mouth once dailySynthroid 75 mcg (0.075 mg) Tab 75 microgram = 1 tab(s), Oral, Daily, Refills(s) 0 Start Date: 03/15/20 Status: Orderedmeclizine hydrochloride 25 mg oral tablet (20 sources)AntiemeticStart: 04-88-8333orku 1 tablet by mouth once daily as needed for nauseameclizine (Antivert) 25 MG tablet Indications: Meniere's disease of both ears Take 1 tablet (25 mg)by mouth Daily as needed for nausea 30 tablet 2 09/09/2024 ActiveStart: 08-51-1174vhpk 1 tablet by mouth once daily as needed for nauseameclizine (Antivert) 25 MG tablet Indications: Meniere's disease of both ears Take 1 tablet (25 mg)by mouth Daily as needed for nausea 30 tablet 2 06/19/2024 ActiveStart: 60-65-0611udkw 1 tablet by mouth three times dailyAntivert 25 mg Tab 25 mg = 1 tab(s), Oral, TID, Refills(s) 0 Start Date: 03/15/20 Status: Orderedtake 1 tablet by mouth every twenty-four hours as needed for nauseameclizine (Antivert) 25 MG tablet Take 1 tablet by mouth Daily as needed for nausea. Activemeloxicam 15 mg oral tablet (20 sources)Nonsteroidal Anti-inflammatory DrugStart: 03-15-2020 End: 61-70-8191esyl 1 tablet by mouth once dailymeloxicam (Mobic) [...] by mouth Daily ActiveMultivitamin tablet (1 source)Start: 84-74-3868hena 1 tablet by mouth once dailyMultivitamin tablet Active 1 TAB PO Daily May 20, 2025 12:00am Complies with drug therapy Multivitamin, Therapeutic w/ Minerals (1 source)Start: 50-78-2191filu 1 tablet by mouth once dailyMultivitamin, Therapeutic w/ Minerals 1 tab(s), Oral, Daily, Refill(s) 0 Start Date: 03/16/20 Status: Orderedomeprazole 20 mg delayed release oral capsule (20 sources)Proton Pump InhibitorStart: 03-15-2020 End: 50-58-4588shdp 1 capsule by mouth before mealtimeomeprazole (PriLOSEC) [address] capsule Indications: Gastroesophageal reflux disease without esophagitis Take 1 capsule (20 mg) by mouth in the morning. Take before meals. 100 capsule 3 10/30/2023 12/18/2024 Discontinued (Other)ondansetron 4 mg disintegrating oral tablet (20 sources)Serotonin-3 Receptor AntagonistStart: 65-96-8481bomk 1 tablet by mouth every six hours as neededOndansetron 4 mg tablet,disintegrating Active 4 MG PO Every 6 hours as needed May 20, 2025 12:00am Complies with drug therapyStart: 04-03-2025 End: 21-82-2979nqtt 1 tablet by mouth every six hours for nauseaondansetron ODT (Zofran-ODT) 4 MG disintegrating tablet Indications: Urinary frequency , Other fatigue Take 1 tablet (4 mg) by mouth every 6 (six) hours if needed for nausea or vomiting for up to 30 doses 30 tablet 04/03/2025 04/29/2025 Discontinued (Therapy completed)Start: 01-06-2025 End: 56-28-1485zodp 1 tablet by mouth onceondansetron (Zofran) 4 MG tablet Indications: Nausea Take 1 tablet (4 mg) by mouth every 12 (twelve) hours if needed for nausea 20 tablet 2 01/06/2025 07/14/2025 Discontinued (Therapy completed)Start: 57-29-6866fpls 1 tablet by mouth onceondansetron (Zofran) 4 [...] meq extended release oral tablet (20 sources)Start: 68-43-7264uibf 1 tablet by mouth once dailypotassium chloride CR (Klor-Con M20) 20 MEQ ER tablet Indications: Hypokalemia TAKE 1 TABLET BY MOUTH EVERY DAY 90 tablet 4 12/08/2024 ActiveStart: 74-20-4366chng 1 tablet by mouth once dailyKLOR-CON 20 MEQ ER tablet Indications: Hypokalemia TAKE 1 TABLET BY MOUTH EVERY DAY 100 tablet 3 11/15/2023 ActiveStart: 00-63-0805Kkcg-Con M20 20 mEq, Oral, Daily, Refills(s) 0 Start Date: 03/15/20 Status: OrderedpredniSONE 10 mg oral tablet (4 sources)Start: 04-29-2025 End: 71-55-8733jqoq 4 tablets by mouth once daily, then [...] 20 tablet 04/29/2025 05/07/2025 ActiveStart: 10-15-2024 End: 81-30-5555edru 1 tablet by mouth once dailypredniSONE (Deltasone) [...] MG/3ML solution pen-injector (4 sources)Start: 03-16-2025 End: 40-83-8895rhxikoywukt (Ozempic, 1 MG/DOSE,) 4 MG/3ML solution pen-injector Indications: Type 2 diabetes mellitus with stage 2 chronic kidney disease, without long-term current use of insulin (HCC) Inject 1 mg under the skin 1 (one) time per week 3 mL 03/16/2025 04/29/2025 Discontinued (Ineffective) Start: 91-01-7508sivczkhchcs (Ozempic, 1 MG/DOSE,) 4 MG/3ML solution pen- injector Indications: Type 2 diabetes mellitus with stage 2 chronic kidney disease, without long-term current use of insulin (HCC) Inject 1 mg under the skin 1 (one) time per week 3 mL 03/16/2025 ActiveSITagliptin 100 mg oral tablet (1 source)Dipeptidyl Peptidase 4 InhibitorStart: 43-99-6190umew 1 tablet by mouth once dailyJanuvia 100 mg Tab 100 mg = 1 tab(s), Oral, Daily Start Date: 03/15/20 Status: Orderedsulfamethoxazole 800 mg / trimethoprim 160 mg oral tablet (1 source)Dihydrofolate Reductase Inhibitor Antibacterial, Sulfonamide AntimicrobialStart: 04-03-2025 End: 82-06-4791pmil 1 tablet by mouth once in the morning, then take 1 tablet by mouth once at bedtimesulfamethoxazole-trimethoprim (Bactrim DS) 800-160 MG per tablet Indications: Urinary frequency , Other fatigue Take 1 tablet by mouth in the morning and 1 tablet before bedtime. Do all this for 7 days. 14 tablet 04/03/2025 04/10/2025 ActiveTirzepatide (1 source)Start: 17-03-2910Fqbturepmxr (Mounjaro) 2.5 mg/0.5 mL pen injector Active 2.5 MG SUBCUT every week May 202:00am Complies with drug therapyTirzepatide (Mounjaro) 2.5 MG/0.5ML solution auto-injector (7 sources)Start: 14-00-8405Bzoqscdabzg (Mounjaro) 2.5 MG/0.5ML solution auto- injector Indications: Type 2 diabetes mellitus with stage 2 chronic kidney disease, without long-term current use of insulin (HCC) Inject 2.5 mg under the skin 1 (one) time per week 2 mL 11 04/29/2025 ActiveTirzepatide (Mounjaro) 2.5 MG/0.5ML solution pen-injector (5 sources)Start: 04-21-2024 End: 28-37-2650Mmayzjkcojs (Mounjaro) 2.5 MG/0.5ML solution pen-injector Indications: Type 2 diabetes mellitus with stage 2 chronic kidney disease, without long-term current use of insulin (CMS/HCC) Inject 0.5 mL under the skin 1 (one) time per week 2 mL 2 04/21/2024 06/04/2024 Discontinued (Dose adjustment)Start: 41-26-3587Bxzvoleivzh (Mounjaro) 2.5 MG/0.5ML solution pen- injector Indications: Type 2 diabetes mellitus with stage 2 chronic kidney disease, without long-term current use of insulin (CMS/HCC) Inject 0.5 mL under the skin 1 (one) time per week 2 mL 2 04/21/2024 ActiveTirzepatide (Mounjaro) 5 MG/0.5ML solution auto-injector (9 sources)Start: 52-18-6457Augggrnturc (Mounjaro) 5 MG/0.5ML solution auto- injector Indications: Type 2 diabetes mellitus withstage 2 chronic kidney disease, without long-term current use of insulin (HCC) Inject 5 mg under the skin every 7 (seven) days 2 mL 5 01/02/2025 ActiveStart: 83-11-7291Iumoyfjxbsb (Mounjaro) 5 MG/0.5ML solution auto-injector Indications: Type 2 diabetes mellitus withstage 2 chronic kidney disease, without long-term current use of insulin (CMS/HCC) Inject 5 mg under the skin every 7 (seven) days 2 mL 5 01/02/2025 ActiveTirzepatide (Mounjaro) 5 MG/0.5ML solution pen-injector (1 source)Start: 55-28-2016Hulctmpjaof (Mounjaro) 5 MG/0.5ML solution pen- injector Indications: Type 2 diabetes mellitus with stage 2 chronic kidney disease, without long-term current use of insulin (CMS/HCC) INJECT 5 MG UNDERTHE SKIN ONE TIME PER WEEK 2 mL 2 09/21/2023 ActiveTirzepatide 5 MG/0.5ML solution pen-injector (20 sources)Start: 06-04-2024 End: 90-52-6436Usflpmmkxdp 5 MG/0.5ML solution pen-injector Indications: Type 2 diabetes mellitus with stage 2 chronic kidney disease, without long-term current use of insulin (CMS/HCC) Inject 5 mg under the skin 1(one) time per week 2 mL 2 06/04/2024 01/02/2025 Discontinued (Duplicate order)Start: 75-79-3184Fjilicypkjj 5 MG/0.5ML solution pen-injector Indications: Type 2 diabetes mellitus with stage 2 chronic kidney disease, without long-term current use of insulin (CMS/HCC) Inject 5 mg under the skin 1(one) time per week 2 mL 2 06/04/2024 ActiveTirzepatide 5 MG/0.5ML solution pen-injector (1 source)Start: 23-31-1897Qgnmkmhdysp 5 MG/0.5ML solution pen-injector Indications: Type 2 diabetes mellitus with stage 2 chronic kidney disease, without long-term current use of insulin ([facility]) Inject 5 mg under the skin 1 (one) time per week 2 mL 2 06/04/2024 ActivetiZANidine 4 mg oral tablet (20 sources)Central alpha-2 Adrenergic AgonistStart: 75-09-3817Tsolatppmr 4 mg tablet Active 0 .ROUTE .COMPLEX May 20, 2025 12:00am 1/2-1 tablet qam and 1 tablet qhs; Complies with drug therapyStart: 52-30-7708zedk 0.5-1 tablets by mouth once daily in the morning, then take 1 tablet by mouth at bedtime tiZANidine (Zanaflex) 4 MG tablet Indications: Degeneration of intervertebral disc of lumbar regionwith discogenic back pain , Neck pain TAKE 1/2 TO 1 TABLET BY MOUTH EVERY MORNING AND 1 TABLET AT BEDTIME 180 tablet 1 01/20/2025 Active Start: 12-17-2024 End: 57-31-0270mfvd 0.5 tablet by mouth once daily in the morning, then take 1 tablet by mouth at bedtimetiZANidine (Zanaflex) 4 MG tablet Indications: Degeneration of intervertebral disc of lumbar regionwith discogenic back pain , Neck pain Take 1/2 -1 tab PO QAM and 1 tab PO at bedtime 60 tablet 2 12/17/2024 01/20/2025 DiscontinuedStart: 03-25-2023 End: 74-60-2166qbyy 1 tablet by mouth every eight hours as neededtiZANidine (Zanaflex) 4 MG tablet Take 1 tablet by mouth every 8 (eight) hours if needed for musclespasms. 03/25/2023 12/17/2024 Discontinued (Reorder)Start: 03-15-2020 take 1 tablet by mouth twice daily as needed for muscle spasmsZanaflex 4 mg Tab 4 mg = 1 tab(s), Oral, BID, PRN Spasm, Refills(s) 0 Start Date: 03/15/20 Status: Yuswbcp42 actuat umeclidinium 0.0625 mg/actuat / vilanterol 0.025 mg/actuat dry powder inhaler (20 sources)Anticholinergic, beta2-Adrenergic AgonistStart: 10-12-2022 End: 30-03-9015jjmy 1 puff(s) by inhalation once dailyUmeclidinium-Vilanterol (Anoro [...] Nucleoside Analog DNA Polymerase InhibitorStart: 03-11-2025 End: 43-83-2875jwhp 1 tablet by mouth in the morningvalACYclovir (Valtrex) 1 g tablet Indications: HSV (herpes simplex virus) infection Take 1 tablet (1,000 mg) by mouth in the morning and 1 tablet (1,000 mg) before bedtime. Do all this for 20 days. 20 tablet 1 03/11/2025 03/31/2025 Active Problems Active Problems Problem ClassificationProblemDateDocumented DateEpisodic/ChronicAnxiety disorders (20 sources)Anxiety disorder, unspecified; Translations: [Anxiety]Onset: 02-28-2008 Resolved: [id number] (20 sources)Uncomplicated moderate persistent asthma; Translations: [Moderate persistent asthma, uncomplicated]Onset: 02-28-2008 Resolved: 385803-60-4235FqodpgdIhsjorr kidney disease (20 sources)Chronic kidney disease stage 3A ; Translations: [Stage 3a chronic kidney disease (HCC)]Onset: 03-31-2023 Resolved: 062588-70-7103OymbfbjVzbwcyn obstructive pulmonary disease and bronchiectasis (20 sources)Chronic obstructive pulmonary disease, unspecified; Translations: [Chronic obstructive lung disease]Onset: 459041-21-5637OsymeojAistbue obstructive pulmonary disease and bronchiectasis (4 sources)Bronchitis; Translations: [Bronchitis, not specified as acute or chronic]53-00-0250IumhxouvRjjuvlmtbe associated with dizziness or vertigo (20 sources)Meniere's disease; Translations: [Meniere's disease, unspecified ear]Onset: 589339-08-3496VlnanikUcduwqlo, dementia, and amnestic and other cognitive disorders (20 sources)Postconcussion syndrome; Translations: [Postconcussional syndrome] Onset: 312297-67-0492NfzkvstJgdmfflq mellitus with complications (20 sources)Type 2 diabetes mellitus; Translations: [Type 2 diabetes mellitus with diabetic chronic kidney disease]Onset: 10-18-2017 Resolved: 953801-35-7859PemqtyiLabqmupia of lipid metabolism (20 sources)Pure hypercholesterolemia; Translations: [Pure hypercholesterolemia, unspecified]Onset: 562971-84-7817OmbltzbMktxvodnwe disorders (20 sources)Gastro-esophageal reflux disease without esophagitis; Translations: [Gastroesophageal reflux disease]Onset: 350734-05-6611MubnaebOlxwezbod hypertension (20 sources)Essential (primary) hypertension; Translations: [Hypertensive disorder]Onset: 371092-68-0613CelzdfzNupmhtuade disorders (6 sources)Menopausal syndrome; Translations: [Menopausal and female climacteric states]76-64-6393UfuoswvGxhzfguzf disorders (6 sources)Excessive and frequent menstruation with regular cycle; Translations: [Menorrhagia]Onset: 19-82-6460VspjercQjlz disorders (20 sources)Major depressive disorder, single episode, unspecified; Translations: [Depressive disorder]Onset: 11-22-2015 Resolved: 176544-71-4236XtpqiwvHrtol aftercare (8 sources)Patient encounter status; Translations: [Other retirement (current) drug therapy]55-05-1211NxddziayDguaa aftercare (4 sources)Surgical follow-up; Translations: [Encounter for surgical aftercare following surgery on the sense organs]17-19-4790SlbhmgltDywva connective tissue disease (9 sources)Pain in left arm; Translations: [Pain in left arm]61-27-0390Dyakspqj Other ear and sense organ disorders (20 sources)Sensorineural hearing loss, bilateral; Translations: [Sensorineural hearing loss, bilateral]Onset: 405050-37-2025CimavnlBpeaf ear and sense organ disorders (20 sources)Chronic non-infective otitis externa; Translations: [Other otitis externa, bilateral]Onset: 374271-00-7201OnwfkfkMgrmy endocrine disorders (20 sources)Drug-induced adrenocortical insufficiency; Translations: [Drug- induced adrenocortical insufficiency]Onset: 810935-21-2358QzomypdKvpga eye disorders (2 sources)Mechanical ptosis of left eyelid; Translations: [Mechanical ptosis] 89-79-2949WcwgzwniFwijk female genital disorders (20 sources)Abnormal uterine bleeding; Translations: [Other specified abnormal uterine and vaginal bleeding]Onset: 938070-52-9237CndycagPkbzn female genital disorders (20 sources)Postcoital bleeding; Translations: [Postcoital and contact bleeding] Onset: 319393-16-8084AgplkrzOaebi female genital disorders (2 sources)Pain in female genitalia on intercourse; Translations: [Unspecified dyspareunia]06-77-7872LqwcvgoRsyxt female genital disorders (2 sources)Pain in pelvis; Translations: [Pelvic cramping]78-83-1096Blgpcnyt Other gastrointestinal disorders (1 source)Irritable bowel syndrome without diarrhea; Translations: [IRRITABLE BOWEL SYND W/O DIARRHEA]Onset: 97-04-4271XzcxqgaJbojp gastrointestinal disorders (20 sources)Irritable bowel syndrome; Translations: [Irritable bowel syndrome without diarrhea]Onset: 213252-41-7019ZgcwfxcBsxcm inflammatory condition of skin (20 sources)Rosacea; Translations: [Other rosacea]Onset: 267424-89-7580 ChronicOther lower respiratory disease (2 sources)Dyspnea; Translations: [Shortness of breath]27-69-2132GlyacufcQccav nervous system disorders (20 sources)Bilateral carpal tunnel syndrome; Translations: [Carpal tunnel syndrome, bilateral upper limbs]Onset: 865737-51-2831RaxcgqbFshar nervous system disorders (20 sources)Median neuropathy; Translations: [Other lesions of median nerve, unspecified upper limb]Onset: 671338-73-6323HjwalyjZsxfv nervous system disorders (4 sources)Hyperreflexia; Translations: [Abnormal reflex]13-32-6722LoyltkmzVnnan nutritional; endocrine; and metabolic disorders (20 sources)Morbid obesity; Translations: [Morbid (severe) obesity due to excess calories]Onset: 676344-35-6869IopjvrcHninq nutritional; endocrine; and metabolic disorders (2 sources)Obesity caused by energy imbalance; Translations: [Morbid (severe) obesity due to excess calories]92-61-7444RquanalJzxsg nutritional; endocrine; and metabolic disorders (2 sources)Body mass index 30+ - obesity; Translations: [Body mass index (BMI) 36.0-36.9, adult]58-37-1545LzaznrcTbzfj upper respiratory infections (20 sources)Chronic pansinusitis; Translations: [Chronic pansinusitis]Onset: 03-21-2019 Resolved: 145574-35-5789EwwvjqeZvqqd upper respiratory infections (3 sources)Acute pharyngitis, unspecified; Translations: [Acute pansinusitis] Onset: 044232-57-4147AnidugmfTcjkfcfg codes; unclassified (1 source)Pain, unspecified; Translations: [Pain, unspecified]Onset: 06-02-2024 EpisodicSpondylosis; intervertebral disc disorders; other back problems (20 sources)Degeneration of lumbar intervertebral disc; Translations: [Degenerative disc disease, lumbar]Onset: 154848-77-4462NrmikjrXjndvzvfx- related disorders (20 sources)Nicotine dependence, cigarettes, uncomplicated; Translations: [Smoker]Onset: 227285-48-4866IycmqcsWubzbnl disorders (20 sources)Hypothyroidism, unspecified; Translations: [Hypothyroidism]Onset: 840323-94-2257FnhpkwbVnliyxrlhshc (4 sources)COUGH, UNSPECIFIED; Translations: [COUGH, UNSPECIFIED]Onset: 20-63-5743Vjfkdguercxe (4 sources)CONTACT W/AND (SUSP) EXPOS COVID-19; Translations: [CONTACT W/AND (SUSP) EXPOS COVID-19]Onset: 49-40-2699Azomgzl tract infections (6 sources)Acute cystitis; Translations: [Acute cystitis without hematuria] 97-92-3908IepegohwOnxam infection (2 sources)Herpes simplex; Translations: [Herpesviral infection, unspecified] 74-20-0136Iwwaadsf Past or Other Problems Problem ClassificationProblemDateDocumented DateEpisodic/ChronicConditions associated with dizziness or vertigo (20 sources)Dizziness and giddiness; Translations: [Dizziness]Onset: 11-22-2015 Resolved: 626783-46-3921AuzfsvsmTusepjbi of mouth; excluding dental (20 sources)Chronic glossitis; Translations: [Glossitis]Onset: 05-16-2023 Resolved: 980560-17-7670LfhwdqbcY Codes: Adverse effects of medical drugs (20 sources)Antidepressant drug adverse reaction; Translations: [Adverse effect of unspecified antidepressants,initial encounter]Onset: 11-22-2015 Resolved: 538102-97-3069ZohjyauvIpqsphigk and duodenitis (20 sources)Acute gastritis; Translations: [Acute gastritis without bleeding] Onset: 02-28-2008 Resolved: 336211-97-9061LqmnkldnKekyhwbti (1 source)Unspecified viral hepatitis C without hepatic coma; Translations: [UNS VIRAL HEPATITIS C W/O HEP COMA]Onset: 45-02-5625BwkdhpvgBmfnpcxalk infection (1 source)Rotaviral enteritis; Translations: [ROTAVIRAL ENTERITIS]Onset: 33-27-8374DcyqjlxyKilousx and fatigue (3 sources)Other fatigue; Translations: [OTHER FATIGUE]Onset: 83-11-8431Bmsduivs Mood disorders (20 sources)Mood disordersOnset: 04-16-2023 Resolved: 832642-55-2054Ovkrmekzk of unspecified nature or uncertain behavior (20 sources)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; Translations: [Neoplasm of uncertain behavior of other specified digestive organs]Onset: 04-15-2023 Resolved: 815908-03-8690VttrahnePgnoo aftercare (1 source)Other remote computer terminal operator (current) drug therapy; Translations: [OTH PENITENTIARY CURRENT DRUG THERAPY]Onset: 92-00-3496FgxnlysqVgimc and unspecified benign neoplasm (20 sources)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; Translations: [Benign neoplasm of liver]Onset: 360642-85-9331DhfkpwjtBlffo and unspecified benign neoplasm (20 sources)Benign neoplasm of skin; Translations: [Other benign neoplasm of skin, unspecified]Onset: 09-27-2009 Resolved: 335998-21-2456TjntaierPommk and unspecified benign neoplasm (20 sources)Serous cystadenoma of pancreas; Translations: [Benign neoplasm of pancreas]Onset: 764832-84-1762FpopoulfHlzxc circulatory disease (1 source)Personal history of transient ischemic attack (TIA), and cerebral infarction without residual deficits; Translations: [PERS HX TIA AND CI NO RESID DEFICIT]Onset: 22-65-2637HrygwmvqHhrko circulatory disease (20 sources)History of transient ischemic attack; Translations: [Personal history of transient ischemic attack (TIA), and cerebral infarction without residual deficits]Onset: 651186-11-7489IovozzkxDruxg connective tissue disease (1 source)Myalgia, unspecified site; Translations: [MYALGIA UNSPECIFIED SITE] Onset: 43-45-9313EmajdmbsVutvp connective tissue disease (20 sources)Abdominal muscle pain; Translations: [Myalgia, other site]Onset: 02-28-2008 Resolved: 714265-98-4429KrbnaqfrGxjxj connective tissue disease (20 sources)Muscle pain; Translations: [Myalgia, unspecified site]Onset: 424321-55-0075GsrhniqmSryds connective tissue disease (20 sources)Fibromyalgia; Translations: [Fibromyalgia]Onset: 04-26-2024 79-38-2642CaiohdfhFhhdv ear and sense organ disorders (20 sources)Bilateral tinnitus; Translations: [Tinnitus, bilateral]Onset: 311327-39-2876IjulgasrDdjgg female genital disorders (20 sources)Abnormal vaginal bleeding; Translations: [Abnormal uterine and vaginal bleeding, unspecified]Onset: 07-26-2016 Resolved: 413325-06-5603TpnasecGapzv female genital disorders (20 sources)Swelling of vagina; Translations: [Noninflammatory disorder of vagina, unspecified]Onset: 04-15-2023 Resolved: 737177-28-8980JsatshcsJtdst gastrointestinal disorders (3 sources)Diarrhea, unspecified; Translations: [DIARRHEA UNSPECIFIED]Onset: 65-67-8679KdrrkaefGtvuh gastrointestinal disorders (20 sources)History of gastritis; Translations: [Personal history of other diseases of the digestive system]Onset: 612633-86-4377SqaimmgqXjcgs inflammatory condition of skin (4 sources)Pruritus, unspecified; Translations: [PRURITUS UNSPECIFIED]Onset: 82-19-8627IkfjgekfAffde nervous system disorders (20 sources)Disorder of muscle; Translations: [Myopathy, unspecified]Onset: 07-26-2023 Resolved: 574359-80-9220DtgemqdGoutr nervous system disorders (20 sources)Carpal tunnel syndrome; Translations: [Carpal tunnel syndrome, unspecified upper limb]Onset: 04-26-2024 Resolved: 013857-45-0850HrjbwzyKrvnu nervous system disorders (20 sources)Abnormal gait; Translations: [Unspecified abnormalities of gait and mobility]Onset: 769832-84-4918UqzwkstuCbbci nervous system disorders (20 sources)Notalgia paresthetica; Translations: [Paresthesia of skin]Onset: 578336-32-0466XekyyklbOeoyg nervous system disorders (20 sources)Skin sensation disturbance; Translations: [Unspecified disturbances of skin sensation]Onset: 898815-27-8926GxvmrutfCeplo non-traumatic joint disorders (20 sources)Arthralgia of the pelvic region and thigh; Translations: [Pain in unspecified hip]Onset: 390491-56-3920WfltzjurFlned nutritional; endocrine; and metabolic disorders (20 sources)Body mass index 40+ - severely obese; Translations: [Body mass index (BMI) 45.0-49.9, adult]Onset: 07-31-2023 Resolved: 660614-92-7741GgwtpduHveyw screening for suspected conditions (not mental disorders or infectious disease) (20 sources)Encounter for screening mammogram for malignant neoplasm of breast; Translations: [Full blood countabnormal]Onset: 35-93-1752RaltmuqgMaugn skin disorders (20 sources)Infection of sebaceous cyst; Translations: [Sebaceous cyst]Onset: 481158-80-7464UcejjpiaZzbkaafpsh disorders (not diabetes) (20 sources)Cyst of pancreas; Translations: [Cyst of pancreas]Onset: 08-11-2022 EpisodicResidual codes; unclassified (1 source)Acquired absence of other specified parts of digestive tract; Translations: [ACQ ABSENCE OTH PART DIGESTV TRACT]Onset: 78-46-0527Ijcqcmmw Residual codes; unclassified (1 source)Patient's other noncompliance with medication regimen; Translations: [PT OTH NONCOMPLIANCE W/ MED REGIMEN]Onset: 53-58-1168XegxatkyKrzyzfmi codes; unclassified (20 sources)Menopause present; Translations: [Asymptomatic menopausal state] Onset: 673423-44-4028VujgyhdvNqlfpoyo codes; unclassified (20 sources)Transient alteration of awareness; Translations: [Transient alteration of awareness]Onset: 04-26-2024 Resolved: 611827-43-1023OjdskezgHnkhdslvacz; intervertebral disc disorders; other back problems (20 sources)Low back pain; Translations: [Low back pain]Onset: 02-28-2008 Resolved: 019358-68-6807MfvtmqboMyeicjbbvtju (1 source)COUGH, UNSPECIFIED; Translations: [COUGH, UNSPECIFIED]Onset: 10-08-5064Btqfsaxsxnhq (1 source)CONTACT W/AND (SUSP) EXPOS COVID-19; Translations: [CONTACT W/AND (SUSP) EXPOS COVID-19]Onset: 04-13-2022 Results Test NameValueInterpretationReference RangeFacilityMM TOMOSYNTHESIS SCREENING BI on 61-30[place]3368[place] [address] Mammography Report Signed Patient: KEITH WASHINGTON MR#: [id number] : 1970 Acct:[id number] Age/Sex: 55 / F ADM Date: 07/27/25 Loc: US Attending Dr: Lesa Orta Ordering Physician: Lesa Orta Results: Date of Service: 07/27/25 Follow Up: Procedure(s): MM tomosynthesis screening BI Accession Number(s): [id number] cc: Lesa Orta; Physician,Non-Staff MGary Patient Name: KEITH WASHINGTON MR#: [id number] : 1970 Exam Date: 07/27/2025 Ordering Doctor: [...] Treatments None Family Cancers None LOCATION: [facility] BREAST COMPOSITION: There are scattered areas of [...] Signed By: 07/27/25 1451 DD/ 1450 TD/TT: Sales Ledger Clerk:TBHRadiology, Radiologist, MD - 07/27/2025 [place] [address] Mammography Report Signed Patient: KEITH WASHINGTON MR#: [id number] : 1970 Acct:[id number] Age/Sex: 55 / F ADM Date: 07/27/25 Loc: US Attending Dr: Lesa Orta Ordering Physician: Lesa Orta Results: Date of Service: 07/27/25 Follow Up: Procedure(s): MM tomosynthesis screening BI Accession Number(s): [id number] cc: Lesa Orta; Physician,Non-Staff Helen Patient Name: KEITH WASHINGTON MR#: [id number] : 1970 Exam Date: 07/27/2025 Ordering Doctor: [...] Treatments None Family Cancers None LOCATION: [facility] BREAST COMPOSITION: There are scattered areas of [...] Signed By: 07/27/25 1451 DD/ 1450 TD/TT: Sales Ledger Clerk: [facility] HealthcareRadiology Study observation (narrative)[facility] TOMOSYNTHESIS SCREENING BIOrdered By: Radiologist Radiology on 28-33-1296[employer] Work Phone: US PELVIS W/ TRANSVAGINALon [phone] [address] Ultrasound Report Signed Patient: KEITH WASHINGTON MR#: [id number] : 1970 Acct:[id number] Age/Sex: 55 / F ADM Date: 07/27/25 Loc: US Attending Dr: Lesa Orta Ordering Physician: Lesa Orta Date of Service: 07/27/25 Procedure(s): US pelvis w/ transvaginal Accession Number(s): [id number] cc: Lesa Orta; Physician,Non-Staff M.Florian The [address] [address] Patient Name: KEITH WASHINGTON MRN: [id number] date: 1970 Sex: F Assigned Patient Location: US Current Patient Location: US Accession/Order Number: [id number] Exam Date: 07/27/2025 09:05 Report Date: 07/27/2025 [...] Bautista M.D. 07/27/2025 10:08 AM Dictation Location: [place] [address] Electronically authenticated by: [id number] Y Date: 07/27/2025 10:08 Dictated By: Julia Bautista M.D. Signed By: 07/27/25 1011 DD/ 1008 TD/TT: Sales Ledger Clerk:NEOHRadiology, Radiologist, - 07/27/[address] [address] Ultrasound Report Signed Patient: KEITH WASHINGTON MR#: [id number] : 1970 Acct:[id number] Age/Sex: 55 / F ADM Date: 07/27/25 Loc: US Attending Dr: Lesa Orta Ordering Physician: eLsa Orta Date of Service: 07/27/25 Procedure(s): US pelvis w/ transvaginal Accession Number(s): [id number] cc: Lesa Orta; Physician,Non-Staff Helen [address] [address] Patient Name: KEITH WASHINGTON MRN: [id number] date: 1970 Sex: F Assigned Patient Location: US Current Patient Location: US Accession/Order Number: [id number] Exam Date: 07/27/2025 09:05 Report Date: 07/27/2025 [...] Bautista M.D. 07/27/2025 10:08 AM Dictation Location: [place] [address] Electronically authenticated by: [id number] Y Date: 07/27/2025 10:08 Dictated By: Julia Bautista M.D. Signed By: 07/27/25 1011 DD/ 1008 TD/TT: Sales Ledger Clerk: [facility] HealthcareRadiology Study observation (narrative)[facility] HealthcareUS PELVIS W/ TRANSVAGINALOrdered By: Radiologist Radiology on 10-46-1390RGIHSaint [facility] Work Phone: Urinalysis macro (dipstick) panel (U)on 07-14-2025 Bilirubin, UANegativeNegative - 4(70) +++ mg/dLRIVERTON HOSPITAL HealthcareBlood, UANegative Negative - 50 [place]/mcLRIVERTON HOSPITAL HealthcareClarity, UAClearNOPA HealthcareColor, UA YellowNOPA HealthcareGlucose, UA3+Negative - 2000(110) ++++ mg/dLRIVERTON HOSPITAL Healthcare Interpretation and review of laboratory resultsNormalRIVERTON HOSPITAL HealthcareKetones, UA NegativeNegative - 160(16) ++++ mg/dLRIVERTON HOSPITAL HealthcareLeukocytes, UANegative Negative - 500+++ Catherine/mcLRIVERTON HOSPITAL HealthcareNitrite, UANegativeNegative - Positive [facility] HealthcarepH, UA5.55 - 9NOPA HealthcareProtein, UANegativeNegative - 2000(20) ++++ mg/dLRIVERTON HOSPITAL HealthcareSpec Grav, UA1.0051 - 1.03[facility] Healthcare Urobilinogen, UA1.00.2 - 12 mg/dLSoutheast [facility] Hospital HealthcareALBUMIN, RANDOM URINE W/CREATININEon 22-04-3578YFTCBEK, URINE0.2 mg/dLNormalSee Note:Quest DiagnosticsComment on above:Result Comment: Reference Range: Reference Range Not establishedPerformed By: #### 3717 #### [facility] [address], [address] [place] [phone] Career Services Manager: Luca Guajardo MDALBUMIN/CREATININE RATIO, RANDOM URINE2 mg/g [...] be within a diagnostic category.Performed By: #### 5028 #### [facility] [address], [address] [place] [address] Career Services Manager: Luca Guajardo MDCreatinine (U) [Mass/Vol]91 mg/bUFktsdt17-694 Quest DiagnosticsComment on above:Performed By: #### 6517 #### [facility] [address], [address] [place] [address] Career Services Manager: Luca Guajardo MDLIPID PANEL, STANDARD 35-63-6410Abkmnvwgovc [Mass/Vol]205 mg/dLHigh<200Quest DiagnosticsComment on above:Order Comment: FASTING:YES FASTING: YESPerformed By: #### 7600 #### [facility] [address], [address] [place] [address] Career Services Manager: Luca Guajardo MDCholesterol in HDL [Mass/Vol]46 mg/dLLow> OR = 50Quest DiagnosticsComment on above:Order Comment: FASTING:YES FASTING: YESPerformed By: #### 7600 #### [facility] [address], [address] [place] [address] Career Services Manager: Luca Guajardo MDCholesterol in LDL [Mass/Vol]129 mg/dLHigh [...] LDL-C. Bill RUBIO et al. NOÉ. 2013;310(19): 5668-8602 (http://education.[employer].com/faq/LWU545)Performed By: #### 7600 #### [facility] [address], [address] [place] [address] Career Services Manager: Luca CAIholesteromilvia.total/Cholesterol in HDL [Mass ratio]4.5 {ratio}Normal<5.0Quest DiagnosticsComment on above:Order Comment: FASTING:YES FASTING: YESPerformed By: #### 7600 #### [facility] [address], [address] [place] [address] Career Services Manager: Luca BLACKWOOD HDL MRXWTLCPTOH920 mg/dL (calc)High<130 Quest DiagnosticsComment on above:Order Comment: FASTING:YES FASTING: YESResult Comment: For patients with diabetes plus 1 major ASCVD risk factor, treating to a non-HDL-C goal of <100 mg/dL (LDL-C of <70 mg/dL) is considered a therapeutic option.Performed By: #### 7600 #### [facility] [address], [address] [place] [address] Career Services Manager: Luca Guajardo MDTriglyceride [Mass/Vol]186 mg/dLHigh<150Quest DiagnosticsComment on above:Order Comment: FASTING:YES FASTING: YESPerformed By: #### 7600 #### [facility] [address], [address] [place] [address] Career Services Manager: Luca Guajardo MDHbA1c (Bld) [Mass fraction]on 04-29-2025 Interpretation and review of laboratory resultsNormalSoutheast [facility] Hospital HealthcareLaboratory - Hematology and Cell countson 11-98-5792CuQ0i (Bld) [Mass fraction]5.7 %[facility] HealthcareNo Panel Informationon 19-21-1715LLPXQHLEIUGZYO EPIDERMIDIS, HAEMOLYTICUS, LUGDUNENSIS, SAPROPHYTICUS (USCTD7TJRJ Healthcare STAPHYLOCOCCUS EPIDERMIDIS, HAEMOLYTICUS, LUGDUNENSIS, SAPROPHYTICUS (URINANot detectedNOMS HealthcareURINARY TRACT INFECTION (HTRX)on 84-97-5182UWQXTXJHYXRQS AEBXFTAM5MZYC HealthcareACINETOBACTER BAUMANIINot detectedNOMS HealthcareCANDIDA ALBICANS, PARAPSILOSIS, JVYGIBWUEI7YGNH HealthcareCANDIDA ALBICANS, PARAPSILOSIS, TROPICALISNot detectedNOMS HealthcareCANDIDA LCKJTGSH7EMQD HealthcareCANDIDA GLABRATANot detectedNOMS HealthcareCANDIDA CBOGTO0XXWB HealthcareCANDIDA KRUSEINot detectedNOMS HealthcareCITROBACTER BQGDQJDV4QGNF HealthcareCITROBACTER FREUNDIINot detectedNOMS HealthcareENTEROBACTER AEROGENES, OTOCRMC2QMUC HealthcareENTEROBACTER AEROGENES, CLOACAENot detectedNOMS HealthcareENTEROCOCCUS FAECALIS, NUDUXLC3WBIF HealthcareENTEROCOCCUS FAECALIS, FAECIUMNot detectedNOMS HealthcareESCHERICHIA XXBN8YIEP HealthcareESCHERICHIA COLINot detectedNOMS HealthcareKLEBSIELLA PNEUMONIAE, HSUPOGL5JZAS Healthcare KLEBSIELLA PNEUMONIAE, OXYTOCANot detectedNOMS HealthcareMORGANELLA MORGANII0 N[facility]S HealthcareMORGANELLA MORGANIINot detectedNOMS HealthcarePROTEUS MIRABILIS, QMUHCGWZ6FLQZ HealthcarePROTEUS MIRABILIS, VULGARISNot detectedNOMS Healthcare PSEUDOMONAS VPHUHMFBTZ0MUMM HealthcarePSEUDOMONAS AERUGINOSANot detectedNOMS HealthcareSERRATIA ZSHOQITPXO0GGFW HealthcareSERRATIA MARCESCENSNot detectedNOMS HealthcareSTAPHYLOCOCCUS HSZNRE2YXZM HealthcareSTAPHYLOCOCCUS AUREUSNot detected [facility] HealthcareSTREPTOCOCCUS AGALACTIAE (GROUP B STREP)0[facility] STREPTOCOCCUS AGALACTIAE (GROUP B STREP)Not detectedNOMS HealthcareSTREPTOCOCCUS PYOGENES (GROUP A STREP)0NOMS HealthcareSTREPTOCOCCUS PYOGENES (GROUP A STREP) Not detectedNOMS HealthcareNOMS HealthcareUrinalysis macro (dipstick) panel (U) on 85-58-9173Nxiwriiko, UANegativeNegative - 4(70) +++ mg/dLNOMS Healthcare Blood, UANegativeNegative - 50 [place]/mcLNOMS HealthcareClarity, UAClearNOMS HealthcareColor, UAYellowNOMS HealthcareGlucose, UAPositiveNegative - 2000(110) ++++ mg/dLNOPA HealthcareComment on above:500mg/dLInterpretation and review of laboratory resultsAbnormalNOMS HealthcareKetones, UANegativeNegative - 160(16) ++++ mg/dLNOPA HealthcareLeukocytes, UANegativeNegative - 500+++ Catherine/mcLNOMS HealthcareNitrite, UANegativeNegative - PositiveNOMS HealthcarepH, UA6.55 - 9 [facility] HealthcareProtein, UANegativeNegative - 2000(20) ++++ mg/dLNOPA Healthcare Spec Grav, UA1.0051 - 1.03N[facility] HealthcareUrobilinogen, UA0.20.2 - 12 mg/dLNOMS HealthcareNOMS HealthcareUrine Cultureon 79-58-1706Trcocgvs identified Cx Nom (U)No Growth 2 Days PERFORMED BY: [facility] [address] [place] [address] PATHOLOGIST GOLF INSTRUCTOR ANTONY ROWAN M.D.NormalThe [facility] Regional Physician GroupComment on above: Performed By: #### CUU #### [facility] [address] [place] [address] USAUrine cultureOrdered By: Baron Wallace on 03-01-2025 Bacteria identified Cx Nom (U)No Growth [facility] CBC WITH AUTO DIFFon 92-20-0223FCHUUYJKT ABSOLUTE AUTO0.1[facility] Basophils/100 WBC (Bld)1.1 %0.2 - 2.0 %[facility] HealthcareEosinophils/100 WBC (Bld) 1.8 %0.9 - 7.0 %[facility] HealthcareErythrocyte distribution width (RBC) [Ratio]13 % 11.0 - 15.0 %[facility] HealthcareHematocrit (Bld) [Volume fraction]48.2 %High36.0 - 48.0 %[facility] HealthcareHemoglobin (Bld) [Mass/Vol]16 g/dL12.0 - 16.0 g/dLNOPA HealthcareIMMATURE GRANULOCYTES ABS AUTO0.01N[facility] HealthcareImmature granulocytes/100 WBC (Bld)0.2 %0.0 - 0.5 %[facility] HealthcareInterpretation and review of laboratory resultsAbnormalNOPA HealthcareLYMPHOCYTES ABSOLUTE AUTO3.4 [facility] HealthcareLymphocytes/100 WBC (Bld)55 %20.5 - 60.0 %[facility] HealthcareMCH (RBC) [Entitic mass]29.2 pg26.7 - 34.0 pgNOCapital Region Medical CenterMCHC (RBC) [Mass/Vol] 33.2 g/dL29.9 - 35.2 g/dLNOPA HealthcareMCV (RBC) [Entitic vol]88 fL81.0 - 99.0 fLNOPA HealthcareMONOCYTES ABSOLUTE AUTO0.6N[facility]S HealthcareMonocytes/100 WBC (Bld)9 %1.7 - 12.0 %[facility] HealthcareNEUTROPHILS ABSOLUTE WUPJ4JRIC Healthcare Neutrophils/100 WBC (Bld)32.9 %Low43.0 - 75.0 %[facility] HealthcarePlatelet mean volume (Bld) [Entitic vol]9.6 fL9.5 - 13.5 fLNOMS HealthcareTBH EO #0.1NOMS HealthcareTBH [id number] HealthcareTBH RBC5.48HighNOMS HealthcareTBH WBC6.2NOMS HealthcareCLINISYNCNOMS HealthcareLon 12-26-2024 Specimen: [id number] Received: 12/26/24 Status: MARCIE Jackson Num: [id number] Spec Type: Surgical Subm Dr: Will Carson Tissues: A Endometrium - Curettings (ENDOMETRIAL CURRETTINGS) Procedures: ALEX/Agapito Mejia/Armaan L4 Age/ Patient Sex Location Account Attending Physician Keith Washington 54/F LABELL [id number] Will Carson SPEC NUM: [id number] RECD: 12/26/24 STATUS: MARCIE JACKSON NUM: [id number] JOSEMANUEL: 12/26/[address] [facility] [address]: Will Carson ENTERED: 12/26/[address]: Nenita,Lab SPEC TYPE: Surgical DEPT: RAYMOND CALLAHAN ENTERED BY: [id number] RECV BY: [id number] ORDERED: HE/2, Gross/Micro L4 ORDERED: HE/2, Gross/Micro [...] submitted in a single cassette. (1, ns, [id number]) JIMMIE Specimen: [id number] Received: 12/26/24 Status: MARCIE Jackson Num: [id number] Spec Type: Surgical Subm Dr: Will Carson Tissues: A Endometrium - Curettings (ENDOMETRIAL CURRETTINGS) Procedures: HE/2, Gross/Micro L4 Patient: Keith Washington [id number] (Continued) Signed (signature on file) Day Myles MD 12/29/[address] [place] [address] Physician GroupLaboratory - Hematology and Cell countson 35-86-1410BbJ5q (Bld) [Mass fraction]5.6 %[facility] CenterNo Panel Informationon 75-34-7865Dwlvbsuflfxjip and review of laboratory resultsNoBurnett Medical CenterUS PELVIC COMPLETE W/ TVon 88-84-1283UN PELVIC COMPLETE W/ TV EXAM: US PELVIC [...] II, MD, PHD at 11-Dec-2024 08:46:31 AM [facility] TeleradiologyNormalNot AvailableComment on above:Order Comment: US PELVIS-TRANSVAG IF INDICATED No LMP recorded. Patient is premenopausal.LIPID PANEL, STANDARDon 10-16-2024 Cholesterol [Mass/Vol]249 mg/dLHigh<200Quest DiagnosticsComment on above:Order Comment: FASTING:YES FASTING: YESPerformed By: #### 7600 #### [employer] [address], [address] [place], [place] [id number] Career Services Manager: Luca Guajardo MDCholesterol in HDL [Mass/Vol]48 mg/dLLow> OR = 50Quest DiagnosticsComment on above:Order Comment: FASTING:YES FASTING: YESPerformed By: #### 7600 #### [employer] [address], [address] [place], [place] [id number] Career Services Manager: Luca Guajardo MDCholesterol in LDL [Mass/Vol]159 mg/dLHigh [...] LDL-C. Bill RUBIO et al. NOÉ. 2013;310(19): 9189-7781 (http://education.ShaveLogic.Battlepro/faq/AIH808)Performed By: #### 3840 #### [employer] [address], [address] [place] [address] Career Services Manager: Luca CAIholesterol.total/Cholesterol in HDL [Mass ratio]5.2 {ratio}High<5.0Quest DiagnosticsComment on above:Order Comment: FASTING:YES FASTING: YESPerformed By: #### 7600 #### [facility] [address], [address] [place] [address] Career Services Manager: Luca BLACKWOOD HDL PWLJJZEVYAP437 mg/dL (calc)High<130 Quest DiagnosticsComment on above:Order Comment: FASTING:YES FASTING: YESResult Comment: For patients with diabetes plus 1 major ASCVD risk factor, treating to a non-HDL-C goal of <100 mg/dL (LDL-C of <70 mg/dL) is considered a therapeutic option.Performed By: #### 7600 #### [facility] [address], [address] [place] [address] Career Services Manager: Luca Guajardo MDTriglyceride [Mass/Vol]247 mg/dLHigh<150Quest DiagnosticsComment on above:Order Comment: FASTING:YES FASTING: YESResult Comment: If a non-fasting specimen was collected, consider repeat triglyceride testing on a fasting specimen if clinically indicated. Crista et al. J. of Clin. Lipidol. 2015;9:129-169.Performed By: #### 7600 #### [facility] [address], [address] [place] [address] Career Services Manager: Luca CORRAL 2 Extremitieson 32-86-6304QLHSSaint Mary's Health Center NOMS HealthcareNVC - Nerveson 64-84-5765YOGGRusk Rehabilitation Center Cervical spine WO contraston 78-87-1243W[address] [address] Magnetic Resonance Report Signed Patient: KEITH WASHINGTON MR#: [id number] : 1970 Acct:[id number] Age/Sex: 54 / F ADM Date: 08/12/24 Loc: MRI Attending Dr: Michelle FERRARO Ordering Physician: Michelle Cuenca Date of Service: 08/12/24 Procedure(s): MR cervical spine wo con Accession Number(s): [id number] cc: ERIK SMITH ; Michelle Cuenca [address] [address] Patient Name: KEITH WASHINGTON MRN: [id number] date: 1970 Sex: F Assigned Patient Location: MRI Current Patient Location: MRI Accession/Order Number: [id number] Exam Date: 08/12/2024 14:42 Report Date: 08/14/2024 [...] Signed By: 08/14/24 1155 DD/ 1152 TD/TT: Sales Ledger Clerk:NICKadiology, Radiologist, - 08/14/2024 [place] [address] Magnetic Resonance Report Signed Patient: KIETH WASHINGTON MR#: [id number] : 1970 Acct:[id number] Age/Sex: 54 / F ADM Date: 08/12/24 Loc: MRI Attending Dr: Michelle FERRARO Ordering Physician: Michelle Cuenca Date of Service: 08/12/24 Procedure(s): MR cervical spine wo con Accession Number(s): [id number] cc: ERIK SMITH ; Michelle Cuenca [place] [address] Patient Name: KEITH WASHINGTON MRN: [facility]:[id number] date: 1970 Sex: F Assigned Patient Location: MRI Current Patient Location: MRI Accession/Order Number: [id number] Exam Date: 08/12/2024 14:42 Report Date: 08/14/2024 [...] Signed By: 08/14/24 1155 DD/ 1152 TD/TT: Sales Ledger Clerk: [facility] CenterRadiology Study observation (narrative)[facility] Cervical spine WO contrastOrdered By: Radiologist Radiology on 56-72-4307ELWVSaint Mary's Health Center Work Phone: Ptosis Visual Field, Limited - OU - Both Eyeson 71-56-2094Ylqux Eye Threshold was LVC. Strategy was Full [...] of >40 degrees that resolves with manual elevationMission HospitalRadiology Study observation (narrative)[facility] Abdomen WO and W contrast Jayden 01-68[place]9047[place] [address] Magnetic Resonance Report Signed Patient: KEITH WASHINGTON MR#: [id number] : 1970 Acct:[id number] Age/Sex: 53 / F ADM Date: 05/09/24 Loc: MRI Attending Dr: JULIA CHEN Ordering Physician: JULIA CHEN Date of Service: 05/09/24 Procedure(s): MR abdomen wo/w con Accession Number(s): [id number] cc: ERIK SMITH ; JULIA CHEN [address] [address] Patient Name: KEITH WASHINGTON MRN: [id number] date: 1970 Sex: F Assigned Patient Location: MRI Current Patient Location: Accession/Order Number: [id number] Exam Date: 05/09/2024 13:30 Report Date: 05/13/2024 [...] Signed By: 05/13/24 0722 DD/ 9 TD/TT: Sales Ledger Clerk:TBHRadiology, Radiologist, - 05/13/2024 [place] [address] Magnetic Resonance Report Signed Patient: KEITH WASHINGTON MR#: [id number] : 1970 Acct:[id number] Age/Sex: 53 / F ADM Date: 05/09/24 Loc: MRI Attending Dr: JULIA CHEN Ordering Physician: JULIA CHEN Date of Service: 05/09/24 Procedure(s): MR abdomen wo/w con Accession Number(s): [id number] cc: ERIK SMITH ; JULIA CHEN [place] [address] Patient Name: KEITH WASHINGTON MRN: [id number] date: 1970 Sex: F Assigned Patient Location: MRI Current Patient Location: Accession/Order Number: [id number] Exam Date: 05/09/2024 13:30 Report Date: 05/13/2024 [...] DEMPSEY Date: 05/13/2024 07:20 Dictated By: Humphrey Dmepsey M.D. Signed By: 05/13/24721 DD/ 9 TD/TT: Sales Ledger Clerk: [facility] CenterRadiology Study observation (narrative)[facility] Abdomen WO and W contrast IVOrdered By: Radiologist Radiology on 21-54-8307ZMPH [employer] Work Phone: XR CHEST 2Von 78-41-3779[place]jeGib[place] [address] XRay Report Signed Patient: KEITH WASHINGTON MR#: [id number] : 1970 Acct:[id number] Age/Sex: 53 / F ADM Date: 09/04/23 Loc: RAD Attending Dr: JULIA CHEN Ordering Physician: JULIA CHEN Date of Service: 09/04/23 Procedure(s): XR chest 2V Accession Number(s): [id number] cc: ERIK SMITH ; JULIA CHEN [place] [id number] Patient Name: KEITH WASHINGTON MRN: [id number] date: 1970 Sex: F Assigned Patient Location: [facility] Current Patient Location: [facility] Accession/Order Number: [id number] Exam Date: 09/04/2023 09:57 Report Date: 09/04/2023 [...] M.D. Signed By: 09/04/231113 DD/ 11 TD/TT: Sales Ledger Clerk:NEOHRadiology, Radiologist, - 11/28/2023 [place] [address] XRay Report Signed Patient: KEITH WASHINGTON MR#: [id number] : 1970 Acct:[id number] Age/Sex: 53 / F ADM Date: 09/04/23 Loc: [facility] Attending Dr: JULIA CHEN Ordering Physician: JULIA CHEN Date of Service: 09/04/23 Procedure(s): XR chest 2V Accession Number(s): [id number] cc: ERIK SMITH ; JULIA CHEN [place] [address] Patient Name: KEITH WASHINGTON MRN: [id number] date: 1970 Sex: F Assigned Patient Location: [facility] Current Patient Location: [facility] Accession/Order Number: [id number] Exam Date: 09/04/2023 09:57 Report Date: 09/04/2023 [...] M.D. Signed By: 09/04/231113 DD/ 1112 TD/TT: Sales Ledger Clerk: [facility] HealthcareRadiology Study observation (narrative)[facility] HealthcareXR CHEST 2V Ordered By: Radiologist Radiology on 91-21-1244VVJISaint Mary's Health Center Work Phone: Physician Orderon 09-68-4103Bhcbcbxkg Order [id number]#1.00CD:127NormalRegional Medical CenterBMPon 15-23-1481Xuodt gap [Moles/Vol]10 mmol/LNormal6-16Regional Medical CenterComment on above:Performed By: #### 0270974, 96584742, 9403294 #### [facility] [address], [place] [address]Nelkwbw [Mass/Vol]9.1 mg/dLNormal8.9-11.1FSt. Mary's Medical CenterComment on above:Performed By: #### 3139580, 39295225, 2974144 #### [facility] [address], [place] [address]Xligknpm [Moles/Vol]104 mmol/QYwcuzm612-066EcryzgRegional Medical CenterComment on above:Performed By: #### 3661575, 13793988, 6393657 #### [facility] [address], [place] [address]HQ8 [Moles/Vol]27 mmol/XQoxytj93-33ZjjgikRegional Medical Center Comment on above:Performed By: #### 0406435, 03234023, 5243668 #### [facility] [address], [place] [address]Savfaptyrn [Mass/Vol]0.7 mg/dLNormal0.5-1.3FSt. Mary's Medical CenterComment on above:Performed By: #### 5307879, 64829680, 4931425 #### [facility] [address], [place] [address]Mvaxasu [Mass/Vol]136 mg/wPWfsccx75-865BwbjqiRegional Medical CenterComment on above:Result Comment: If this glucose result represents a fasting glucose, interpretation should refer tothe following reference range: 55-99 mg/dLPerformed By: #### 5207710, 44938537, 3115299 #### [facility] [address], [place] [address]Fbrgvaaiz [Moles/Vol]4.4 mmol/LNormal3.5-5.3FSt. Mary's Medical CenterComment on above:Performed By: #### 1402701, 03280789, 2460642 #### [facility] [address], [place] [address]Jgfjrt [Moles/Vol]137 mmol/LWpeulk969-446SvqckeRegional Medical CenterComment on above:Performed By: #### 8588687, 72310071, 3208104 #### [facility] [address] [place] [address]Khan nitrogen [Mass/Vol]8 mg/dLNormal5-21Regional Medical CenterComment on above:Performed By: #### 3445433, 11225763, 4321462 #### [facility] [address], [place] [address]Mmjy nitrogen/Creatinine [Mass ratio]11 No ZtgirGuzmxv40-12 Regional Medical CenterComment on above:Performed By: #### 0846383, 06721507, 6921979 #### [facility] [address], [place] [address]MOE w/Indiceson 73-16-3274Klesocohwsw distribution width (RBC) [Ratio]14.6 %High10.9-14.2FSt. Mary's Medical CenterComment on above:Performed By: #### 7918388, 06627683, 7384374 #### [facility] [address], [place] [address]Ailsoobiws (Bld) [Volume fraction]43.8 %Srffhv96.0-46.0Regional Medical CenterComment on above:Performed By: #### 6143391, 11492485, 1138162 #### [facility] [address], [place] [address]Cadlearxhr (Bld) [Mass/Vol]14.9 g/bPUgcwpo84.0-16.0Regional Medical CenterComment on above:Performed By: #### 4577625, 30692813, 1299218 #### [facility] [address] [place] [address]HTZ (RBC) [Entitic mass]29.2 ddWhzoar49.0-34.0Regional Medical CenterComment on above:Performed By: #### 0603087, 48160505, 4580530 #### [facility] [address] [place] [address]RRUR (RBC) [Mass/Vol]34.0 g/zOKlibjr50.4-36.0Regional Medical CenterComment on above:Performed By: #### 7213893, 50660002, 7201247 #### [facility] [address] [place] [address]KNS (RBC) [Entitic vol]86.1 zDBhzjzm71.0-100.0Regional Medical CenterComment on above:Performed By: #### 6588084, 05220410, 7509156 #### [facility] [address] [place] [address]Bgopqptg mean volume (Bld) [Entitic vol]8.3 fLNormal6.4-10.8 Regional Medical CenterComment on above:Performed By: #### 7286802, 81783397, 5470520 #### [facility] [address] [place] [address]Aonsjrgax (Bld) [#/Vol]229.0 E9/MXomcck247.0-500.0Regional Medical CenterComment on above:Performed By: #### 2203111, 12805795, 0176665 #### [facility] [address] [place] [address]ZEX (Bld) [#/Vol]5.1 E12/LNormal4.3-5.9Regional Medical CenterComment on above:Performed By: #### 2192034, 45197693, 1946328 #### [facility] [address], [place] [address]HRR corrected for nucl RBC Auto (Bld) [#/Vol]8.1 E9/LNormal 4.0-11.0Regional Medical CenterComment on above:Performed By: #### 1713049, 61627155, 2451896 #### [facility] [address], [place] [address]LROMKVLUXLimxhzi By: SYSTEM SYSTEM on 23-43-8665Xkpsu gap [Moles/Vol]10 mmol/LNormal6 - 16 mEq/LFTMC RemisolCalcium [Mass/Vol]9.1 mg/dL Normal8.9 - 11.1 mg/dLFTMC RemisolChloride [Moles/Vol]104 mmol/KTdahct920 - 111 mmol/LFTMC RemisolCO2 [Moles/Vol]27 mmol/QTpnpwk45 - 31 mmol/LFTMC Remisol Creatinine [Mass/Vol]0.7 mg/dLNormal0.5 - 1.3 mg/dLFTMC RemisolGFR/1.73 sq M.predicted among non-blacks MDRD (S/P/Bld) [Vol rate/Area]103 mL/min/1.73 m2 Normal>=59mL/min/1.73 m2[facility] Chem SGlucose [Mass/Vol]136 mg/cGPozzeb04 - 199 mg/dLFTMC RemisolPotassium [Moles/Vol]4.4 mmol/LNormal3.5 - 5.3 mmol/LFTMC RemisolSodium [Moles/Vol]137 mmol/SPbfmoe716 - 145 mmol/LFTMC RemisolUrea nitrogen [Mass/Vol]8 mg/dLNormal5 - 21 mg/dLFTMC RemisolUrea nitrogen/Creatinine [Mass ratio]11 mg/spJidznn62 - 20FT[facility] RemisolConsent for Treatmenton 05-09-2023 Consent for [id number]#1.00CD:127Normal Regional Medical CenterHEMATOLOGYOrdered By: Dax Wolfe on 53-96-4700Wjjuvbdgrzy distribution width (RBC) [Ratio]14.6 %High10.9 - 14.2 % [facility] HemeAutoSSHematocrit (Bld) [Volume fraction]43.8 %Kctlrc62.0 - 46.0 %[facility] HemeAutoSSHemoglobin (Bld) [Mass/Vol]14.9 g/bMXiatko81.0 - 16.0 gm/dLFTMC HemeAutoSSMCH (RBC) [Entitic mass]29.2 waYuapft74.0 - 34.0 pgFTMC HemeAutoSSMCHC (RBC) [Mass/Vol]34.0 g/bNGcypjc67.4 - 36.0 gm/dLFTMC HemeAutoSSMCV (RBC) [Entitic vol]86.1 ePNrrgya33.0 - 100.0 fLFTMC HemeAutoSSPlatelet mean volume (Bld) [Entitic vol]8.3 fLNormal6.4 - 10.8 fLFTMC HemeAutoSSPlatelets (Bld) [#/Vol]229.0 E9/WXhykod177.0 - 500.0 E9/LFTMC HemeAutoSSRBC (Bld) [#/Vol]5.1 E12/LNormal4.3 - 5.9 E12/LFTMC HemeAutoSSWBC corrected for nucl RBC Auto (Bld) [#/Vol]8.1 E9/LNormal4.0 - 11.0 E9/LFTMC HemeAutoSSeGFRon 37-78-6123OIA/1.73 sq M.predicted among non-blacks MDRD (S/P/Bld) [Vol rate/Area]103 mL/min/1.73 m2 Normal>=59Regional Medical CenterComment on above:Order Comment: Order added by Discern Expert.Result Comment: Chronic kidney disease could be indicated at eGFR's of less than 60 mL/min/1.73m2. Kidney failure is indicated at less than 15 mL/min/1.73m2.Performed By: #### [id number], 06711230, 5504305 #### [facility] [address] [place], [place] [address]WYY ABDOMEN WO W CONon 79-38-6273FZG ABDOMEN WO W CONEXAM: MRI ABDOMEN WO [...] Electronically authenticated by: AMAN THOMAS Date: 2022-08-15 09:36NoLakeHealth Beachwood Medical CenterCREATININE 87-38-6712Dqedrjyimh [Mass/Vol]0.79 mg/dLNormal 0.55-1.02[facility] Community HospitalComment on above:Performed By: #### CATHIL #### [facility] [address] [place] [address] [address] Steven TeranGFR-AF ALBANIAN>60Normal>=60The [facility] City HospitalComment on above:Performed By: #### CATHIL #### [facility] [address] [address] [address] Steven TeranGFR-NON AF ALBANIAN>60Normal>=60The [facility] City HospitalComment on above:Performed By: #### CATHIL #### [facility] [address] Steven SimonUS PELVIS AND TRANSVAGon 46-39-1230BI PELVIS AND TRANSVAG EXAMINATION: US PELVIS AND [...] Electronically authenticated by: HUMPHREY DEMPSEY Date: 2022-07-24 07:22NoLakeHealth Beachwood Medical CenterXR CHEST 2 Von 85-44-7712AA CHEST 2 VEXAM: XR CHEST 2 V HISTORY: Cough. COMPARISON: 04/13/2022 TECHNIQUE: Frontal and lateral chest FINDINGS: Heart and vascularity are unremarkable. Lungs are expanded and free of focal infiltrates. No acute bony abnormality is appreciated. IMPRESSION: No acute heart or lung disease identified. Electronically authenticated by: HUMPHREY ENNIS Date: 2022-04-20 07:59NoLakeHealth Beachwood Medical CenterCovid-19 PCR (CVDTBH)on 29-50-0080FNJS-CoV-2 (COVID-19) RNA TATIANA+probe Ql (Unsp spec)Not detectedNormalNOT DETECTEDThe [facility] Comment on above:Result Comment: When diagnostic testing [...] for this test is supported by the Business Intelligence Director of Health and Human Service's declaration that [...] longer be used).Performed By: #### GIPBRITTANYL #### [facility] [address] [place] [address] Dr. Steven SimonXR CHEST 1 Von 33-69-2487CA CHEST 1 VEXAMINATION: XR CHEST 1 V [...] Electronically authenticated by: HUMPHREY DEMPSEY Date: 2022-04-13 10:15NormalMercer County Community HospitalGIARDIA LAMBLIA AND CRYPTO DETECTIONon 04-11-2022 Cryptosporidium EIANegativeNormalNegativeMercer County Community HospitalComment on above: Performed By: #### FELIPA #### [facility] [address] [place] [address] Dr. Steven mercado Ag, EIANegativeNormalNegativeMercer County Community HospitalComment on above:Performed By: #### FELIAP #### [facility] [address] [place] [address] Dr. Steven Augustin AND PARASITE EXAMINATIONon 2O AND P Exam, Formalin OnlyFinal reportProMedica Toledo HospitalComment on above:Result Comment: Reference Range: None Seen No PVA preserved specimen received. For optimal O and P results we suggest the use of O and P kits containing both formalin and PVA. These kits are available from your flight service specialist.Performed By: #### ERUR #### [facility] [address] [place] [address] Dr. Steven Dimas 1CommentNoLakeHealth Beachwood Medical CenterComment on above:Result Comment: No ova, cysts, or parasites seen. . One negative specimen does not rule out the possibility of a parasitic infection.Performed By: #### ERUR #### [facility] [address] [place] [address] Dr. Steven Johnson AUTO DIFFon 90-76-7216KEHW #0.0 103/ulNormal0.0-0.1The [facility] City HospitalComment on above:Performed By: #### CBC #### [facility] [address] [place] [address] Dr. Steven SimonBasophils/100 WBC (Bld)0.2 %Normal0.2-2.0[facility] Comment on above:Performed By: #### CBC #### [facility] [address] [place] [address] Dr. Steven Nickerson #0.0 103/ulNormal0.0-0.7The [facility] City HospitalComment on above: Performed By: #### CBC #### [facility] [address] [place] [address] Dr. Steven Teranosinophils/100 WBC (Bld)0.6 %Critically low0.9-7.0The [facility] on above:Performed By: #### CBC #### [facility] [address] [place] [address] Dr. Steven Teranrythrocyte distribution width (RBC) [Ratio]13.8 %Smotou98.0-15.0 The [facility] City HospitalComment on above:Performed By: #### CBC #### [facility] [address] [place] [address] Dr. Steven SimonHematocrit (Bld) [Volume fraction]46.6 %Mysuxd95.0-48.0The The Christ Hospitalment on above:Performed By: #### CBC #### [facility] [address] [place] [address] Dr. Steven SimonHemoglobin (Bld) [Mass/Vol]14.9 g/oWDeyrvw39.0-16.0The [facility] on above:Performed By: #### CBC #### [facility] [address] [address] [address] Steven Baird #0.02 10e3/ulNormal0.00-0.03The [facility] on above:Performed By: #### CBC #### [facility] [address] [place] [address] Dr. Steven Baird %0.3 %Normal0.0-0.5The [facility] on above: Performed By: #### CBC #### [facility] [address] [place] [address] Dr. Steven Kenyon #1.4 103/ulNormal1.2-3.8The [facility] on above:Performed By: #### CBC #### [facility] [address] [place] [address] Dr. Steven Hernandezhocytes/100 WBC (Bld)21.4 %Gtsodb23.5-60.0The [facility] on above:Performed By: #### CBC #### [facility] [address] [place] [address] Dr. Steven TranUAL DIFF REQNONormalThe [facility] on above: Performed By: #### CBC #### [facility] [address] [place] [address] Dr. Steven Bettencourt (RBC) [Entitic mass]28.9 skVhvzyv30.7-34.0The [facility] on above:Performed By: #### CBC #### [facility] [address] [place] [address] Dr. Steven Bettencourt (RBC) [Mass/Vol]32.0 g/rNOqmwbb56.9-35.2The [facility] on above:Performed By: #### CBC #### [facility] [address] [place] [address] Dr. Steven Bettencourt (RBC) [Entitic vol]90.5 bBTahihp11.0-99.0The Labadieville HospitalComment on above:Performed By: #### CBC #### [facility] [address] [address] [address] Steven Lim #0.9 103/ulCritically high0.3-0.8The [facility] Comment on above:Performed By: #### CBC #### [facility] [address] [address] [address] Steven Dunnocytes/100 WBC (Bld)13.7 %Critically high1.7-12.0The [facility] City HospitalComment on above:Performed By: #### CBC #### [facility] [address] [address] [address] Steven Goldsmith #4.1 103/ulNormal1.4-6.5The [facility] City HospitalComment on above:Performed By: #### CBC #### [facility] [address] [place] [address] Dr. Steven Parkutrophils/100 WBC (Bld)63.8 %Xcprbs74.0-75.0The [facility] HospitalComment on above:Performed By: #### CBC #### [facility] [address] [place] [address] Dr. Steven Rowley mean volume (Bld) [Entitic vol]9.9 fLNormal9.5-13.5The [facility] HospitalComment on above:Performed By: #### CBC #### [facility] [address] [place] [address] Dr. Steven SimonPLT195 103/psRsjmtd939-782Fsa [facility] HospitalComment on above: Performed By: #### CBC #### [facility] [address] [place] [address] Dr. Steven SimonRBC5.15 106/ulNormal4.20-5.40The [facility] HospitalComment on above:Performed By: #### CBC #### [facility] [address] [place] [address] Dr. Steven SimonWBC6.4 103/ulNormal4.0-11.0The [facility] HospitalComment on above: Performed By: #### CBC #### [facility] [address] [place] [address] Dr. Steven Zhouvid-19 PCR (CVDTB)on 33-86-6383ARYD-CoV-2 (COVID-19) RNA TATIANA+probe Ql (Unsp spec)Not detectedNormalNOT DETECTEDThe [facility] Comment on above:Result Comment: When diagnostic testing [...] for this test is supported by the Floris of Health and Human Service's declaration that [...] longer be used).Performed By: #### CVDTBH #### [facility] [address] [place] [address] Dr. Steven SimonGI PANEL (PCR)on 31-59-7129Tfamkhjequ F 40/41Not detectedNormal NOT DETECTEDThe [facility] HospitalComment on above:Performed By: #### GIPANEL #### [facility] [address] [place] [address] Dr. Steven SimonAstrovirusNot detectedNormalNOT DETECTEDMercer County Community Hospital Comment on above:Performed By: #### GIPANEL #### [facility] [address] [place] [address] Dr. Steven Patel. Diff toxin A/BNot detectedNormalNOT DETECTEDThe [facility] HospitalComment on above:Performed By: #### GIPANEL #### [facility] [address] [place] [address] Dr. Steven NesspylobacterNot detectedNormalNOT DETECTEDThe [facility] Comment on above:Performed By: #### GIPANEL #### [facility] [address] [address] [address] Steven SimonCryptosporidiumNot detectedNormalNOT DETECTEDThe [facility] HospitalComment on above:Performed By: #### GIPANEL #### [facility] [address] [address] [address] Steven Shipleyos. CayetanensisNot detectedNormalNOT DETECTEDThe [facility] City HospitalComment on above:Performed By: #### GIPANEL #### [facility] [address] [address] [address] Steven Urbina Coli L978Ahw ApplicableNormalNot ApplicableThe [facility] City HospitalComment on above:Performed By: #### GIPANEL #### [facility] [address] [address] [address] Steven Teran. histolyticaNot detectedNormalNOT DETECTEDThe [facility] Comment on above:Performed By: #### GIPANEL #### [facility] [address] [address] [address] Steven TeranAECNot detectedNormalNOT DETECTEDThe [facility] HospitalCom[facility] on above:Performed By: #### GIPANEL #### [facility] [address] [address] [address] Steven TeranIECNot detectedNormalNOT DETECTEDThe [facility] HospitalComment on above:Performed By: #### GIPANEL #### [facility] [address] [address] [address] Steven TeranPECNot detectedNormalNOT DETECTEDThe [facility] HospitalCom[facility] on above:Performed By: #### GIPANEL #### [facility] [address] [address] [address] Steven TeranTECNaltaf detectedNormalNOT DETECTEDThe [facility] HospitalComment on above:Performed By: #### GIPANEL #### [facility] [address] [address] [address] Steven Herrera LambliaNot detectedNormalNOT DETECTEDMer[facility] Comment on above:Performed By: #### AGUILAANEL #### [facility] [address] [address] [address] Steven FOSTERPASSFlower HospitalComment on above:Performed By: #### AGUILAANEL #### [facility] [address] [address] [address] Steven Mckeon [facility] HEADERGI PANEL [facility] Comment on above:Performed By: #### AGUILAANEL #### [facility] [address] [address] [address] Steven Regalado ECOLIGI PANEL DIARRHEAGENIC E.COLI / SHIGELLAProMedica Toledo HospitalComment on above:Performed By: #### AGUILAANEL #### [facility] [address] [address] [address] Steven Regalado INFOSEE [facility] HospitalComment on above: Result Comment: EAEC- Enteroaggregative E. Coli EPEC- Enteropathogenic E. Coli ETEC- Enterotoxigenic E. Coli lt/st STEC- Shigella-like toxin-producing E. Coli stx1/stx2 EIEC- Shigella/Enteroinvasive E. ColiPerformed By: #### AGUILAANEL #### [facility] [address] [place] [address] Dr. Steven Regalado PARASITESGI PANEL PARASITESProMedica Toledo Hospital Comment on above:Performed By: #### AGUILAANEL #### [facility] [address] [address] [address] Steven Regalado VIRUSGI PANEL VIRUSESProMedica Toledo HospitalComment on above:Performed By: #### AGUILAANEL #### [facility] [address] [address] [address] Steven Duronvirus GI/GIINot detectedNormalNOT DETECTEDMercer County Community HospitalComment on above:Performed By: #### AGUILAANEL #### [facility] [address] [address] [address] Steven Montemayor ShigelloidesNot detectedNormalNOT DETECTEDThe [facility] HospitalComment on above:Performed By: #### GIPANEL #### [facility] [address] [address] [address] Steevn SimonRotavirus ADetectedAbnormalNOT DETECTEDThe [facility] Comment on above:Performed By: #### GIPANEL #### [facility] [address] [address] [address] Steven SimonSalmonellaNot detectedNormalNOT DETECTEDThe [facility] Comment on above:Performed By: #### GIPANEL #### [facility] [address] [address] [address] Steven SimonSapovirusNot detectedNormalNOT DETECTEDThe [facility] Comment on above:Performed By: #### GIPANEL #### [facility] [address] [address] [address] Steven SimonSTECNot detectedNormalNOT DETECTEDThe [facility] HospitalComment on above:Performed By: #### AGUILAANEL #### [facility] [address] [address] [address] Steven InterianoioNot detectedNormalNOT DETECTEDThe [facility] HospitalComment on above:Performed By: #### AGUILAANEL #### [facility] [address] [address] [address] Steven Interianoio CholeraNot detectedNormalNOT DETECTEDThe [facility] Comment on above:Performed By: #### GIPANEL #### [facility] [address] [address] [address] Steven Scott. EnterocoliticaNot detectedNormalNOT DETECTEDThe [facility] HospitalComment on above:Performed By: #### GIPANEL #### [facility] [address] [address] [address] Steven SimonLACTATE/LACTIC ACIDon 09-01-5123Ivvjrsj [Moles/Vol]0.6 mmol/L Normal0.4-1.9The [facility] City HospitalComment on above:Performed By: #### GIPANEL #### [facility] [address] [address] [address] Steven Chatman 14(COMP METB)on 32-75-1237Oarcdru [Mass/Vol]3.3 g/dL Critically low3.4-5.0The [facility] City HospitalComment on above:Performed By: #### ERUR #### [facility] [address] [place] [address] Dr. Steven SimonAlbumin/Globulin [Mass ratio]0.9 {ratio}NormalThe [facility] City HospitalComment on above:Performed By: #### ERUR #### [facility] [address] [place] [address] Dr. Steven JacksonP [Catalytic activity/Vol]63 U/ISerllj25-433Lar [facility] HospitalComment on above:Performed By: #### ERUR #### [facility] [address] [place] [address] Dr. Steven Lloyd [Catalytic activity/Vol]26 U/DMgofzn47-93Pzj [facility] HospitalComment on above:Performed By: #### ERUR #### [facility] [address] [place] [address] Dr. Steven Humphrey gap [Moles/Vol]12.2 mmol/LNormalThe [facility] Comment on above:Performed By: #### ERUR #### [facility] [address] [place] [address] Dr. Steven SimonAST [Catalytic activity/Vol]18 U/OBbehhc71-83Ekc [facility] HospitalComment on above:Performed By: #### ERUR #### [facility] [address] [place] [address] Dr. Steven SimonBilirubin [Mass/Vol]0.6 mg/dLNormal0.2-1.0The [facility] Comment on above:Performed By: #### ERUR #### [facility] [address] [place] [address] Dr. Steven SimonCalcium [Mass/Vol]7.6 mg/dLCritically low8.5-10.1The [facility] HospitalComment on above:Performed By: #### ERUR #### [facility] [address] [address] [address] Stveen SimonChloride [Moles/Vol]102 mmol/YAjwpck50-624Uyc [facility] Comment on above:Performed By: #### ERUR #### [facility] [address] [address] [address] Steven SimonCO2 [Moles/Vol]24.6 mmol/MJmmwdu35.0-32.0The [facility] Comment on above:Performed By: #### ERUR #### [facility] [address] [place] [address] Dr. Steven SimonCreatinine [Mass/Vol]0.71 mg/dLNormal0.55-1.02The [facility] HospitalComment on above:Performed By: #### ERUR #### [facility] [address] [place] [address] Dr. Steven TeranGFR-AF ALBANIAN>60Normal>=60The [facility] HospitalComment on above:Performed By: #### ERUR #### [facility] [address] [place] [address] Dr. Steven TeranGFR-NON AF ALBANIAN>60Normal>=60The [facility] HospitalComment on above:Performed By: #### ERUR #### [facility] [address] [address] [address] Steven SimonGlobulin (S) [Mass/Vol]3.6 g/dLNormalThe [facility] HospitalComment on above:Performed By: #### ERUR #### [facility] [address] [address] [address] Steven SimonGlucose [Mass/Vol]146 mg/dLCritically wtyi84-253Sll [facility] HospitalComment on above:Performed By: #### ERUR #### [facility] [address] [place] [address] Dr. Steven SimonPotassium [Moles/Vol]3.8 mmol/LNormal3.5-5.1The [facility] Comment on above:Performed By: #### ERUR #### [facility] [address] [address] [address] Steven SimonProtein [Mass/Vol]6.9 g/dLNormal6.4-8.2[facility] Comment on above:Performed By: #### ERUR #### [facility] [address] [address] [address] Steven SimonSodium [Moles/Vol]135 mmol/LCritically fob371-393Oes [facility] HospitalComment on above:Performed By: #### ERUR #### [facility] [address] [place] [address] Dr. Steven SimonUrea nitrogen [Mass/Vol]7.0 mg/dLNormal7.0-18.0[facility] HospitalComment on above:Performed By: #### ERUR #### [facility] [address] [place] [address] Dr. Steven Joe nitrogen/Creatinine [Mass ratio]9.9 mg/mgNoLakeHealth Beachwood Medical CenterComment on above:Performed By: #### ERUR #### [facility] [address] [place] [address] Dr. Steven SimonXR CHEST 2 Von 98-86-6060ME CHEST 2 VEXAMINATION: XR CHEST 2 V [...] Electronically authenticated by: MADISON DOTY Date: 2021-12-29 08:02NoLakeHealth Beachwood Medical CenterCovid-19 PCR (CVDTBH)on 09-83-6138CDFP-CoV-2 (COVID-19) RNA TATIANA+probe Ql (Unsp spec)Not detectedNormalNOT DETECTEDThe [facility] Comment on above:Result Comment: This test is not yet approved or cleared by the [place] FDA. When there are no FDA-approved or cleared tests available, and other criteria are met, FDA can make tests available under an emergency access mechanism called an Emergency Use Authorization (EUA). The EUA for this test is supported by the [place] of Health and Human Service's (HHS's) declaration [...] consistent with SARS-CoV-2.Performed By: #### CVDTBH #### [facility] [address] [place] [address] Dr. Steven De Diosalbumin (with Creat)on 39-48-7118iJEL<1.2LowNsanta ana hospital medical centern Middlesex HospitalComment on above:Result Comment: Unable to calculate mALB/Crea ratio, mALB is <1.2 mg/dL mALB reference range not established.Performed By: #### mALBC #### [facility] [address], [place] [id number] mg/dIPqjyhy07-664Wllduveq Hillside HospitalAir Technician Comment on above:Performed By: #### mALBC #### [facility] [address], [place] [id number] Metabolic Panelon 96-70-8066Bqkqagl [Mass/Vol] 4.3 g/dLNormal3.6-5.1Northn [facility] SpecialistComment on above:Performed By: #### CMP, LIPD, TSH reflex FT4 #### [facility] [address], [place] [id number]/Globulin [Mass ratio]2.0 {ratio}Normal1.0-2.5Noatrium healthn [facility] SpecialistComment on above:Performed By: #### CMP, LIPD, TSH reflex FT4 #### [facility] [address], [place] [id number] [Catalytic activity/Vol]64 U/ODwcuso71-426Mfkrlxty [facility] SpecialistComment on above:Performed By: #### CMP, LIPD, TSH reflex FT4 #### [facility] [address], [place] [id number] [Catalytic activity/Vol]30 U/LNormal6-33NoOhio State University [facility] SpecialistComment on above:Result Comment: 08/24/2021 Female reference range changed.Performed By: #### CMP, LIPD, TSH reflex FT4 #### [facility] [address], [place] [id number] gap [Moles/Vol]16 mmol/STguxdt13-31Vkciaziw [facility] SpecialistComment on above:Result Comment: Effective 09/29/2019 reference range changed.Performed By: #### CMP, LIPD, TSH reflex FT4 #### [facility] [address], [place] [id number] [Catalytic activity/Vol]30 U/LNormal9-34NoOhio [facility] SpecialistComment on above:Performed By: #### CMP, LIPD, TSH reflex FT4 #### [facility] [address], [place] [id number] [Mass/Vol]0.51 mg/dLNormal0.30-1.20NoOhio [facility] SpecialistComment on above:Performed By: #### CMP, LIPD, TSH reflex FT4 #### [facility] [address], [place] [id number]/CREA14 RatioNormal6-22NoOhio State University [facility] Specialist Comment on above:Performed By: #### CMP, LIPD, TSH reflex FT4 #### [facility] [address], [place] [id number] [Mass/Vol]9.5 mg/dLNormal8.6-10.2[facility] SpecialistComment on above:Performed By: #### CMP, LIPD, TSH reflex FT4 #### [facility] [address], [place] [id number] [Moles/Vol]102 mmol/APvmkas48-730Symhgpjg [facility] SpecialistComment on above:Performed By: #### CMP, LIPD, TSH reflex FT4 #### [facility] [address], [place] [id number] [Moles/Vol]25 mmol/XNwjdoe69-91Zywdkpfq [facility] SpecialistComment on above:Performed By: #### CMP, LIPD, TSH reflex FT4 #### [facility] [address], [place] [id number] [Mass/Vol]0.8 mg/dLNormal0.6-1.4NoOhio [facility] SpecialistComment on above:Performed By: #### CMP, LIPD, TSH reflex FT4 #### [facility] [address], [place] [id number] mL/min/1.78r7Xurkta>60NortWright-Patterson Medical Center SpecialistComment on above:Performed By: #### CMP, LIPD, TSH reflex FT4 #### [facility] [address], [place] [id number] mL/min/1.71m0Ztrbyg>60NoOhio [facility] SpecialistComment on above:Performed By: #### CMP, LIPD, TSH reflex FT4 #### [facility] [address], [place] [id number] (S) [Mass/Vol]2.2 g/dLNormal1.9-3.7NoOhio [facility] University [facility] SpecialistComment on above:Performed By: #### CMP, LIPD, TSH reflex FT4 #### [facility] [address], [place] [id number] [Mass/Vol]128 mg/oKDmco35-09Dnxrohnk [place] [facility] SpecialistComment on above:Result Comment: For FASTING Glucose --- ADA reference ranges: Normal 65-99 mg/dl Prediabetes 100-125 Diabetes >/= 126Performed By: #### CMP, LIPD, TSH reflex FT4 #### [facility] [address], [place] [id number] [Moles/Vol]4.7 mmol/LNormal3.5-5.5NoOhio [facility] SpecialistComment on above:Performed By: #### CMP, LIPD, TSH reflex FT4 #### [facility] [address], [place] [id number] [Mass/Vol]6.5 g/dLNormal6.1-8.1[facility] SpecialistComment on above:Performed By: #### CMP, LIPD, TSH reflex FT4 #### [facility] [address], [place] [id number] [Moles/Vol]139 mmol/VLbiaci604-796Lrtjoqtg [facility] SpecialistComment on above:Performed By: #### CMP, LIPD, TSH reflex FT4 #### [facility] [address], [place] [id number] nitrogen [Mass/Vol]10 mg/dLNormal7-25NoOhio [facility] SpecialistComment on above:Performed By: #### CMP, LIPD, TSH reflex FT4 #### [facility] [address], [place] [id number] A1Con 36-63-1392UPY486.72NormalNoOhio State University [facility] SpecialistComment on above:Performed By: #### A1C #### [facility] [address], [place] [id number] (Bld) [Mass fraction]6.6 %High4.0-6.0NoOhio State University [facility] SpecialistComment on above:Performed By: #### A1C #### [facility] [address], [place] [id number] Panelon 96-03-2573Vigznkxkric [Mass/Vol]245 mg/dLHigh 125-200NoOhio [facility] SpecialistComment on above:Result Comment: Low risk < 200mg/dL Borderline risk 201-239 mg/dl High risk > or equal to 240Performed By: #### CMP, LIPD, TSH reflex FT4 #### [facility] [address], [place] [id number] in HDL [Mass/Vol]42 mg/dLNormal>40NortWright-Patterson Medical Center SpecialistComment on above:Result Comment: High Cardiovascular Risk HDL <40 mg/dL Low Cardiovascular Risk HDL > or equal to 60 mg/dlPerformed By: #### CMP, LIPD, TSH reflex FT4 #### [facility] [address], [place] [id number] in LDL [Mass/Vol]168 mg/dLNormalNoOhio [facility] SpecialistComment on above:Result Comment: LDL ATP III CLASSIFICATION LDL less than 100 mg/dl Optimal LDL 100-129 mg/dl Near or above optimal LDL 130-159 Borderline high LDL 160-189 High LDL greater than 189 mg/dl Very HighPerformed By: #### CMP, LIPD, TSH reflex FT4 #### [facility] [address], [place] [id number] in VLDL [Mass/Vol]35 mg/dLNormalNoOhio [facility] SpecialistComment on above:Performed By: #### CMP, LIPD, TSH reflex FT4 #### [facility] [address], [place] [id number].total/Cholesterol in HDL [Mass ratio]6 {ratio} NormalNortUniversity Hospitals Beachwood Medical CenterComment on above:Performed By: #### CMP, LIPD, TSH reflex FT4 #### [facility] [address], [place] [id number] [Mass/Vol]177 mg/sWDreq56-406Wgiwktwr [place] [facility] SpecialistComment on above:Result Comment: TRIG ATPIII CLASSIFICATIONS TRIG less than 150 mg/dl Normal TRIG 150-199 mg/dl Borderline High TRIG 200-500 mg/dl High TRIG greather than 500 mg/dl Very HighPerformed By: #### CMP, LIPD, TSH reflex FT4 #### [facility] [address], [place] [id number] w/ Reflex to Free T4on 59-54-7406CQU8.949 uIU/mLNormal 0.400-4.500[facility] SpecialistComment on above:Performed By: #### CMP, LIPD, TSH reflex FT4 #### [facility] [address], [place] [id number] PANEL, ACUTEon 56-37-5290LPbYc ScreenNegativeNormal NegativeThe [facility] HospitalComment on above:Performed By: #### HEPACUT #### [facility] [address] [place] [address] Dr. Steven Priest A Ab, IgMNegativeNormalNegativeThe [facility] HospitalComment on above:Performed By: #### HEPACUT #### [facility] [address] [place] [address] Dr. Steven Fields Core Ab, IgMNegativeNormalNegativeMercer County Community Hospital Comment on above:Performed By: #### HEPACUT #### [facility] [address] [place] [address] Dr. Steven Brand Virus Ab0.1 s/co ratioNormal0.0-0.9[facility] Comment on above:Result Comment: Negative: < 0.8 Indeterminate: 0.8 - 0.9 Positive: > 0.9 . The CDC recommends that a positive HCV antibody result be followed up with a HCV Nucleic Acid Amplification test (088538). Effective December 05, 2021 Hepatitis Panel (4) will be made non-orderable. [facility] offers order code [id number] Acute Hepatitis.Performed By: #### HEPACUT #### [facility] [address] [place] [address] Dr. Steven Johnson AUTO DIFFon 63-05-1184WZGW #0.1 103/ulNormal0.0-0.1The [facility] HospitalComment on above:Performed By: #### GIPANEL #### [facility] [address] [place] [address] Dr. Steven SimonBasophils/100 WBC (Bld)1.0 %Normal0.2-2.0[facility] Comment on above:Performed By: #### GIPANEL #### [facility] [address] [place] [address] Dr. Steven Nickerson #0.1 103/ulNormal0.0-0.7The [facility] HospitalComment on above: Performed By: #### ISA #### [facility] [address] [place] [address] Dr. Steven Teranosinophils/100 WBC (Bld)1.1 %Normal0.9-7.0The [facility] Comment on above:Performed By: #### ISA #### [facility] [address] [place] [address] Dr. Steven Teranrythrocyte distribution width (RBC) [Ratio]13.2 %Plmphq44.0-15.0 The [facility] HospitalComment on above:Performed By: #### ISA #### [facility] [address] [place] [address] Dr. Steven SimonHematocrit (Bld) [Volume fraction]44.8 %Xgclef45.0-48.0The [facility] HospitalComment on above:Performed By: #### ISA #### [facility] [address] [place] [address] Dr. Steven SimonHemoglobin (Bld) [Mass/Vol]14.5 g/bCVdwfib63.0-16.0The [facility] HospitalComment on above:Performed By: #### ISA #### [facility] [address] [place] [address] Dr. Steven Baird #0.02 10e3/ulNormal0.00-0.03The [facility] HospitalComment on above:Performed By: #### ISA #### [facility] [address] [place] [address] Dr. Steven Baird %0.2 %Normal0.0-0.5The [facility] HospitalComment on above: Performed By: #### ISA #### [facility] [address] [place] [address] Dr. Yilan ChangLYMPH #3.6 103/ulNormal1.2-3.8The [facility] HospitalComment on above:Performed By: #### ISA #### [facility] [address] [place] [address] Dr. Steven Fordmphocytes/100 WBC (Bld)43.3 %Gehcgo91.5-60.0The [facility] HospitalComment on above:Performed By: #### ISA #### [facility] [address] [place] [address] Dr. Steven Lisa DIFF REQNONormalThe [facility] HospitalComment on above: Performed By: #### ISA #### [facility] [address] [place] [address] Dr. Steven Bettencourt (RBC) [Entitic mass]28.6 aaGuwgdt80.7-34.0The [facility] HospitalComment on above:Performed By: #### ISA #### [facility] [address] [place] [address] Dr. Steven Bettencourt (RBC) [Mass/Vol]32.4 g/lOQyovye00.9-35.2The [facility] HospitalComment on above:Performed By: #### CATHIL #### [facility] [address] [place] [address] Dr. Steven Bettencourt (RBC) [Entitic vol]88.4 kCXrpsvk49.0-99.0The [facility] HospitalComment on above:Performed By: #### CATHIL #### [facility] [address] [place] [address] Dr. Steven Lim #0.6 103/ulNormal0.3-0.8The [facility] HospitalComment on above:Performed By: #### CATHIL #### [facility] [address] [place] [address] Dr. Steven Dunnocytes/100 WBC (Bld)7.5 %Normal1.7-12.0The [facility] Comment on above:Performed By: #### ISA #### [facility] [address] [address] [address] Steven Goldsmith #3.9 103/ulNormal1.4-6.5The [facility] HospitalComment on above:Performed By: #### CATHIL #### [facility] [address] [place] [address] Dr. Steven Parkutrophils/100 WBC (Bld)46.9 %Lklvih83.0-75.0The [facility] HospitalComment on above:Performed By: #### GIPANEL #### [facility] [address] [place] [address] Dr. Steven Sultanalet mean volume (Bld) [Entitic vol]9.8 fLNormal9.5-13.5The [facility] HospitalComment on above:Performed By: #### CATHIL #### [facility] [address] [place] [address] Dr. Steven SimonPLT282 103/mnNeaxmu234-714Gkl [facility] HospitalComment on above: Performed By: #### CATHIL #### [facility] [address] [place] [address] Dr. Steven SimonRBC5.07 106/ulNormal4.20-5.40The The Christ Hospitalment on above:Performed By: #### AGUILAANEL #### [facility] [address] [place] [address] Dr. Steven SimonWBC8.4 103/ulNormal4.0-11.0The [facility] HospitalComment on above: Performed By: #### GIPANEL #### [facility] [address] [place] [address] Dr. Harris ChangELECTROLYTESon 03-88-4281Jymte gap [Moles/Vol]14.7 mmol/LNormal The [facility] HospitalComment on above:Performed By: #### ELEC, LIVER #### [facility] [address] [place] [address] Dr. Steven SimonChloride [Moles/Vol]99 mmol/UOqatig58-373Ofd [facility] Comment on above:Performed By: #### ELEC, LIVER #### [facility] [address] [place] [address] Dr. Steven SimonCO2 [Moles/Vol]25.2 mmol/GPunree96.0-30.0The [facility] Comment on above:Performed By: #### ELEC, LIVER #### [facility] [address] [place] [address] Dr. Steven SimonPotassium [Moles/Vol]3.9 mmol/LNormal3.4-5.0The [facility] Comment on above:Performed By: #### ELEC, LIVER #### [facility] [address] [place] [address] Dr. Steven SimonSodium [Moles/Vol]135 mmol/LCritically rrn559-809Ewx [facility] HospitalComment on above:Performed By: #### ELEC, LIVER #### [facility] [address] [place] [address] Dr. Steven Sun PROFILEon 71-64-9234Onxckzx [Mass/Vol]3.7 g/dLNormal3.5-5.0 The [facility] HospitalComment on above:Performed By: #### ELEC, LIVER #### [facility] [address] [place] [address] Dr. Steven SimonAlbumin/Globulin [Mass ratio]1.0 {ratio}NormalThe [facility] HospitalComment on above:Performed By: #### ELEC, LIVER #### [facility] [address] [place] [address] Dr. Steven Anaya [Catalytic activity/Vol]56 U/EUfukod78-206Ayt [facility] HospitalComment on above:Performed By: #### ELEC, LIVER #### [facility] [address] [place] [address] Dr. Steven Lloyd [Catalytic activity/Vol]41 U/LNormal9-52The [facility] Comment on above:Performed By: #### ELEC, LIVER #### [facility] [address] [place] [address] Dr. Steven Das [Catalytic activity/Vol]27 U/AGkdfat08-92Rsv [facility]adieville HospitalComment on above:Performed By: #### ELEC, LIVER #### [facility] [address] [address] [address] Steven AgarwalI, CONJUGATED0.1 mg/dLNormal0.0-0.3TFlower Hospital Comment on above:Performed By: #### ELEC, LIVER #### [facility] [address] [address] [address] Steven Agarwalirubin [Mass/Vol]0.5 mg/dLNormal0.2-1.3TFlower Hospital Comment on above:Performed By: #### ELEC, LIVER #### [facility] [address] [place] [address] Dr. Steven SimonGlobulin (S) [Mass/Vol]3.6 g/dLNormalThParkview Health Bryan HospitalComment on above:Performed By: #### ELEC, LIVER #### [facility] [address] [place] [address] Dr. Steven SimonProtein [Mass/Vol]7.3 g/dLNormal6.1-8.2[facility] Comment on above:Performed By: #### ELEC, LIVER #### [facility] [address] [place] [address] Dr. Steven SimonMG MAMM SCREEN 3D PATRICIA CADon [id number] MAMM SCREEN 3D PATRICIA CAD Patient: KEITH WASHINGTON Exam Date: 09/14/2021 : 1970 Gender:F Ordering : DR ERIK SMITH M.D. Admission #: [id number] Family : DR WILL CARSON . Order #: [id number] CLICK HERE TO VIEW EXAM RADIOLOGY REPORT PROCEDURE: MAMMOGRAM SCREENING 3D BILATERAL CAD COMPARISON: MG MAMM SCREEN PATRICIA W CAD, 04/08/2019. INDICATIONS: Screening mammography Calculator Name NCI Breast Cancer Risk Assessment Tool 5 Year Breast Cancer Risk 0.90% Lifetime Breast Cancer Risk 7.00% Personal Breast Cancer No Personal Ovarian Cancer No Treatments None Family Cancers None LOCATION: [facility] BREAST COMPOSITION: Scattered areas fibroglandular density. [...] by: Madison Doty M.D. on 09/14/2021 at 14:24NoLakeHealth Beachwood Medical CenterCovid-19 PCR (CVDTBH)on 10-55-6534DHVK-CoV-2 (COVID-19) RNA TATIANA+probe Ql (Unsp spec)Not detectedNormalNOT DETECTEDOhioHealth Dublin Methodist Hospital on above: Result Comment: When diagnostic [...] for this test is supported by the Business Intelligence Director of Health and Human Service's declaration that [...] longer be used).Performed By: #### CVDTBH #### [facility] [address] [place] [address] Dr. Steven Pedersen URINE PROFILEon 54-88-8957Zpaqooxcy Ql (U)NegativeNormal NEGATIVEOhioHealth Dublin Methodist Hospital on above:Performed By: #### ERUR #### [facility] [address] [address] [address] Harris ChangClarity (U)CLEARNormalCLEARThe [facility] HospitalComment on above: Performed By: #### ERUR #### [facility] [address] [address] [address] Steven Springer (U)YELLOWNormalYELLOWMercer County Community HospitalComment on above: Performed By: #### ERUR #### [facility] [address] [address] [address] Steven Hurtado micrscopic examination will be performed if indicated. NormalThe Labadieville HospitalComment on above:Performed By: #### ERUR #### [facility] [address] [address] [address] Steven SimonGlucose Ql (U)500 mg/dlAbnoalNEGGeorgetown Behavioral Hospital Comment on above:Performed By: #### ERUR #### [facility] [address] [address] [address] Steven SimonHemoglobin Ql (U)NegativermalNEGGeorgetown Behavioral Hospital Comment on above:Performed By: #### ERUR #### [facility] [address] [place] [address] Dr. Steven SimonKetones Ql (U)NegativeNormalNEGATIVEMercer County Community HospitalComment on above:Performed By: #### ERUR #### [facility] [address] [place] [address] Dr. Steven SimonLEUKOCYTESNegativeNormalNEGGeorgetown Behavioral HospitalComchildren's [facility] on above:Performed By: #### ERUR #### [facility] [address] [address] [address] Steven SimonNitrite Ql (U)NegativeNormalNEGATIVEMercer County Community HospitalComment on above:Performed By: #### ERUR #### [facility] [address] [address] [address] Steven SimonpH (U)7.5 [pH]Normal5-9[facility] HospitalComment on above: Performed By: #### ERUR #### [facility] [address] [address] [address] Steven SimnoSPEC GRAVITY1.669Kfilhp9.005-<=1.025The [facility] HospitalComment on above:Performed By: #### ERUR #### [facility] [address] [address] [address] Steven Olson PROTEINNegativeNormalNEGATIVE/ TRACEThe [facility] Comment on above:Performed By: #### ERUR #### [facility] [address] [address] [address] Steven Landa MICRO INDNOT INDICATEDNormalThe [facility] HospitalComment on above:Performed By: #### ERUR #### [facility] [address] [address] [address] Steven SimonUrobilinogen Qn (U)0.2 {Claritza'U}/dLNormal0.2 - 1.0The [facility] HospitalComment on above:Performed By: #### ERUR #### [facility] [address] [address] [address] Steven Simon Vital Signs Date TimeVital SignValuePerforming YeroegjinSmvtwuiu75-77-5240 11:59-0400Body mass index (BMI) [Ratio]37.68 kg/m2Lesa FERRARO Work Phone: [phone]-[facility] HospitalSaint [facility] Health CenterYcszghchoi78-12-3871 11:59-0400Body iitbgx308.77 kgLesa FERRARO Work Phone: [phone] CenterXnspldmiky58-08-8260 11:59-0400Diastolic blood upavogtq18 mm[Hg]Lesa FERRARO Work Phone: [phone] Health CenterOlynizowvk03-39-1396 11:59-0400Systolic blood twcgowoe298 mm[Hg]Lesa FERRARO Work Phone: [phone])[address]08-27-2025 09:53-0400Body .64 Baljinder Smith MD Work Phone: [facility]08-27-2025 09:53-0400 Body mass index (BMI) [Ratio]37.5 kg/y2PpuhtErik Smith MD Work Phone: [facility]08-27-2025 09:53-0400 Body dzyquu889.68 kgErik Smith MD Work Phone: [phone])[address]08-27-2025 09:53-0400 Diastolic blood zzarbpsi54 mm[Hg]Erik Smith MD Work Phone: [phone])[address]08-27-2025 09:53-0400 Heart rate72 /minErik Smith MD Work Phone: [phone])[address]08-27-2025 09:53-0400 Systolic blood qzmpotjj742 mm[Hg]Erik Smith MD Work Phone: [phone])[address] [place], [place] 4236808-06-2025 09:34-0400 Body fgxepr321.7 cmSjessi Bianchi LIFESTYLE DIRECTOR Work Phone: [phone] [place], [place] [address]Cndtrmwxai86-45-8193 09:34-0400Body mass index (BMI) [Ratio]36.28 kg/y0ZmitavJayne Bianchi LIFESTYLE DIRECTOR Work Phone: [phone] [place], [place] [address]Ufyopluvef73-57-0654 09:34-0400Body tidhlh877.69 kgJayne Bianchi LIFESTYLE DIRECTOR Work Phone: [phone] [place], [place] [address]Dannqtmobq52-19-2952 09:34-0400Diastolic blood mm[Hg]Jayne Bianchi LIFESTYLE DIRECTOR Work Phone: 1([phone] [place], [place] [address]Dbfrsokxil63-12-4035 09:34-0400Heart rate78 /min Jayne Bianchi LIFESTYLE DIRECTOR Work Phone: [phone] [place], [place] [address]Cljfntivsb06-86-3142 09:34-0400Respiratory rate17 /minSjessi Bianchi LIFESTYLE DIRECTOR Work Phone: [facility] CenterWthekgbkkj72-99-7087 09:34-7605BmC6% (BldA) [Mass fraction]99 %Jayne Bianchi LIFESTYLE DIRECTOR Work Phone: [facility] CenterCdqtzlfllv49-30-3651 09:34-0400Systolic blood orwrbpwq357 mm[Hg]Jayne Bianchi LIFESTYLE DIRECTOR Work Phone: 1([phone] [place], [place] [address]Qzswxhnlsa17-40-8895 11:07-0400Body mass index (BMI) [Ratio]35.61 kg/o1Rdwpl Alli DO Work Phone: [facility] CenterGrubhvxddf52-05-2066 11:07-0400Body lgznuv901.76 kgCorey Alli DO Work Phone: [facility] CenterUozehygdvs73-09-0875 11:07-0400Diastolic blood ygggpigj84 mm[Hg]Will Alli DO Work Phone: [facility] CenterEzrfhrfbdi15-04-6211 11:07-0400Systolic blood vquxwafi072 mm[Hg]Will Alli DO Work Phone: [facility] CenterMlyxyerezs85-31-6096 13:02-0400Body mass index (BMI) [Ratio]35.15 kg/i9Cdfjx Alli DO Work Phone: [facility] CenterUkyuqdcywn85-79-2767 13:02-0400Body .4 kgCorey Alli DO Work Phone: [facility] CenterSgbqothsne93-13-4762 13:02-0400Diastolic blood jcjymtme18 mm[Hg]Will Alli DO Work Phone: [facility] CenterJxlknxzsnj76-38-9085 13:02-0400Systolic blood szvreinz995 mm[Hg]Will Alli DO Work Phone: [facility] CenterBctwcvaknk28-39-7560 08:37-0400Diastolic blood uzxcammz38 mm[Hg]Julia Hemmer PA Work Phone: [phone] [place], [place] [address]Ofpjbcwpzr08-50-8878 08:37-0400Systolic blood bihtyxjg948 mm[Hg]Julia Hemmer PA Work Phone: 1(394)625-[address] [place], [place] [address]Ybqeukzyeo49-31-7787 08:13-0400Body ktosow088.7 cmKyleen Hemmer PA Work Phone: [facility] CenterDfthnvagxj58-62-8296 08:13-0400Body mass index (BMI) [Ratio]35.9 kg/y6Mlewx Hemmer PA Work Phone: [facility] CenterYombfvqqqw64-20-6167 08:13-0400Body nsowps200.6 kgKaren Hemmer PA Work Phone: [facility]OC[facility] CenterEcjskkeone57-51-5344 08:13-0400Heart rate78 /min Julia Adhikarimer PA Work Phone: noCapital [facility] Medical CenterNxjafqrrgo47-95-2280 08:13-0400Respiratory rate16 /minKyleleigha Adhikarimer PA Work Phone: noCap[facility] CenterBxkbnwzeja97-63-3938 08:13-9948ZuG6% (BldA) [Mass fraction]98 %Julia Adhikarimer PA Work Phone: [facility]OC[facility] CenterIgcqhlcwzt62-63-6100 09:36-0400Body qofhqy802.6 cmAharinder Cuenca PA Work Phone: noCap[facility] CenterYongftsqgv52-66-1060 09:36-0400Body mass index (BMI) [Ratio]36.96 kg/m2Michelle Cuenca PA Work Phone: noCap[facility] CenterZblvgypxpd72-71-3581 09:36-0400Body agavhu264.87 kgMichelle Cuenca PA Work Phone: [facility]OC[facility] CenterCthacjrgqx96-52-8874 09:36-0400Diastolic blood pulozime26 mm[Hg]Michelle Cuenca PA Work Phone: noCap[facility] CenterJmylnuwddp88-66-9356 09:36-0400Heart rate61 /min Michelle Cuenca PA Work Phone: noCap[facility] CenterPdfasjysdb12-46-4890 09:36-0400Respiratory rate16 /minMichelle Cuenca PA Work Phone: noCap[facility] CenterAbvyrlnsmr76-94-0244 09:36-5092QqQ9% (BldA) [Mass fraction]98 %Michelle Cuenca PA Work Phone: [facility]OC[facility] CenterPcekdxhyna93-76-6145 09:36-0400Systolic blood dwegnnvh969 mm[Hg]Michelle Cuenca PA Work Phone: [facility]OC[facility] CenterRkkryofbyo57-29-4774 09:56-0500Body mass index (BMI) [Ratio]35.5 kg/c9FwdhaWill Carson DO Work Phone: [facility]OC[facility] CenterRwmtylhvnm04-75-3879 09:56-0500Body vdoaqn786.42 kgCorey Alli DO Work Phone: [facility] CenterCihmvhnvqt92-77-7102 09:56-0500Diastolic blood rjyuqqcx64 mm[Hg]Will Alli DO Work Phone: [facility]OC[facility] CenterRfwrxqozgg41-23-5042 09:56-0500Systolic blood ynpigmsi424 mm[Hg]Will Alli DO Work Phone: [facility]OC[facility] CenterSzzftqcenq52-73-4796 09:06-0500Body luhfwm529.7 Amy Bianchi LIFESTYLE DIRECTOR Work Phone: [facility]OC[facility] CenterYyhdtrbefh97-86-0663 09:06-0500Body mass index (BMI) [Ratio]35.44 kg/q8Anxosdnany Bianchi LIFESTYLE DIRECTOR Work Phone: [facility] CenterAheacpbcym50-59-2995 09:06-0500Body ejllqe463.24 kgJayne Bianchi LIFESTYLE DIRECTOR Work Phone: [facility] CenterVhckwhezmi93-09-0497 09:06-0500Diastolic blood lttqanpy85 mm[Hg]Jayne Bianchi LIFESTYLE DIRECTOR Work Phone: [facility]OC[facility] CenterKkxwtxhofp88-22-3249 09:06-0500Heart rate67 /min Jayne Bianchi LIFESTYLE DIRECTOR Work Phone: [facility] CenterKrduhkislo37-25-7363 09:06-0500Respiratory rate16 /minSjessi Bianchi LIFESTYLE DIRECTOR Work Phone: [facility] CenterQbuxwnlnni14-54-3797 09:06-9824KtV9% (BldA) [Mass fraction]96 %Jayne Bianchi LIFESTYLE DIRECTOR Work Phone: [facility]OC[facility] CenterZzulthxdkd99-81-7784 09:06-0500Systolic blood plfagtzn712 mm[Hg]Jayne Bianchi LIFESTYLE DIRECTOR Work Phone: [facility]OC[facility] CenterHuirumswnu67-95-0831 08:55-0500Body zayrff702.7 Amy Bianchi LIFESTYLE DIRECTOR Work Phone: [facility]OC[facility] CenterSlaawruajj98-85-1215 08:55-0500Body mass index (BMI) [Ratio]35.44 kg/a1Jyovswnany Bianchi LIFESTYLE DIRECTOR Work Phone: [facility] CenterLyqyuurasq05-92-0739 08:55-0500Body iurtnu914.24 kgJayne Bianchi LIFESTYLE DIRECTOR Work Phone: [facility] CenterXavhqwljuz21-19-2162 08:55-0500Diastolic blood zvfedmre90 mm[Hg]Jayne Bianchi LIFESTYLE DIRECTOR Work Phone: [facility]OC[facility] CenterTnakjggjoe17-79-6931 08:55-0500Heart rate67 /min Jayne Bianchi LIFESTYLE DIRECTOR Work Phone: [facility]OC[facility] CenterWnrvvjleyy97-85-9606 08:55-0500Respiratory rate17 /minScady Bianchi LIFESTYLE DIRECTOR Work Phone: [facility] CenterNwyxlyjhzf05-48-5131 08:55-7079YuC2% (BldA) [Mass fraction]97 %Jayne Bianchi LIFESTYLE DIRECTOR Work Phone: [facility] CenterJivfwzjoqe90-80-0202 08:55-0500Systolic blood qpseapri538 mm[Hg]Jayne Bianchi LIFESTYLE DIRECTOR Work Phone: [facility] CenterKyrypmkqvs51-27-7813 11:43-0500Body qwywuf001.6 cmKaren Hemmer PA Work Phone: [facility] CenterLueqrminiy14-74-4132 11:43-0500Body mass index (BMI) [Ratio]36.41 kg/s2Osftk Hemmer PA Work Phone: [facility] CenterKupnempjif58-87-2832 11:43-0500Body .33 kgKaren Hemmer PA Work Phone: [facility] CenterEqktxntpak68-40-0163 11:43-0500Diastolic blood okcweuzq75 mm[Hg]Julia Hemmer PA Work Phone: [facility] CenterHymsquprfr42-89-0812 11:43-0500Heart rate77 /min Julia Hemmer PA Work Phone: [facility] CenterObnirubxgh65-11-2432 11:43-0500Respiratory rate16 /minKyleen Hemmer PA Work Phone: 1([phone] [place], [place] [address]Swkvmabalt59-98-0773 11:43-6705MrI7% (BldA) [Mass fraction]97 %Julia Chen PA Work Phone: [facility]OC[facility] CenterFejimvlvcj74-20-9748 11:43-0500Systolic blood uhaunlqb373 mm[Hg]Julia Chen PA Work Phone: [facility] CenterUhftpflbwt35-25-8989 09:49-0500Body .6 Claudia Cuenca PA Work Phone: [facility] CenterDquokfmdlg27-44-5583 09:49-0500Body mass index (BMI) [Ratio]36.48 kg/m2Michelle Cuenca PA Work Phone: [facility] CenterOnpoawhitz20-22-3797 09:49-0500Body ghvixo984.51 kgMichelle Cuenca PA Work Phone: [facility] CenterXpxqfgbfyy95-11-5060 09:49-0500Diastolic blood teuqvpyn08 mm[Hg]Michelle Cuenca PA Work Phone: [facility] CenterAdebxtxkgl63-84-2244 09:49-0500Heart rate79 /min Michelle Cuenca PA Work Phone: [facility] CenterBibwqftdip19-90-4297 09:49-0500Respiratory rate16 /minMichelle Cuenca PA Work Phone: [facility] CenterKvddiysfyj72-60-5954 09:49-5492UiQ3% (BldA) [Mass fraction]97 %Michelle Cuenca PA Work Phone: [facility] CenterMpzpmmlokj30-26-6451 09:49-0500Systolic blood kkpgxsux048 mm[Hg]Michelle Cuenca PA Work Phone: [facility]OC[facility] CenterYztaycwuar67-98-0525 10:16-0400Body hbcepa235.6 Claudia Cuenca PA Work Phone: [facility]OC[facility] CenterDidaqivroy22-03-6827 10:16-0400Body mass index (BMI) [Ratio]37.12 kg/m2Michelle Cuenca PA Work Phone: [facility]OC[facility] CenterOtazyyvdkb63-48-1642 10:16-0400Body pzyimt793.33 kgMichelle Cuenca PA Work Phone: [facility] CenterPhkanpajed73-48-5566 10:16-0400Diastolic blood fccthibw41 mm[Hg]Michelle Cuenca PA Work Phone: [facility] CenterEopznuujnf17-07-1048 10:16-0400Heart rate71 /min iMchelle Cuenca PA Work Phone: [facility]OC[facility] CenterRoazszicue07-01-1794 10:16-0400Respiratory rate16 /minMichelle Cuenca PA Work Phone: [facility] CenterEsdldtoaop15-71-7204 10:16-4283HlI8% (BldA) [Mass fraction]95 %Michelle Cuenca PA Work Phone: [facility]OC[facility] CenterXsnycuwowi78-29-0258 10:16-0400Systolic blood pyvaiahu502 mm[Hg]Michelle Cuenca PA Work Phone: [facility] CenterOnomfmhiwy56-77-6785 13:34-0400Body .6 cmCelio Brown MD Work Phone: 1([phone])561-[address] [place], [place] 1901009-10-2024 13:34-0400Body mass index (BMI) [Ratio]37.41 kg/w0SmomqCelio Brown MD Work Phone: 1(522)711-[address] [place], [place] 1901009-10-2024 13:34-0400Body .14 kgCelio Brown MD Work Phone: 1(901)591-[address] [place], [place] 5453709-10-2024 13:34-0400Diastolic blood wigswfdx52 mm[Hg]Celio Brown MD Work Phone: 1(791)338-[address] [place], [place] 1901009-10-2024 13:34-0400Heart rate 76 /minCelio Brown MD Work Phone: 1(969)756-[address] [place], [place] 5453709-10-2024 13:34-0400Systolic blood twctypuz954 mm[Hg]Celio Brown MD Work Phone: 1(766)254-[address] [place], [place] 5453709-03-2024 14:03-0400Body .6 Baljinder Smith MD Work Phone: [facility] CenterEbxcvomkep92-64-4930 14:03-0400Body mass index (BMI) [Ratio]37.28 kg/p5PatakErik Smith MD Work Phone: [facility] CenterRcafsbynwy70-57-4386 14:03-0400Body .78 kgErik Smith MD Work Phone: noCap[facility] Medical CenterRupkhqaiif33-65-8851 14:03-0400Diastolic blood hycxemzg19 mm[Hg]Erik Smith MD Work Phone: [facility] CenterZomtrevudu15-12-6436 14:03-0400Heart rate69 /min Erik Smith MD Work Phone: noCapital Region Medical CenterIlpwvurpah32-23-3151 14:03-5454WeR4% (BldA) [Mass fraction]97 %Erik Smith MD Work Phone: noCapital Region Medical CenterGkqoiuecvq72-27-1397 14:03-0400Systolic blood vbevgymg351 mm[Hg]Erik Smith MD Work Phone: [facility] Encounters Encounter DateEncounter TypeCare ProviderFacilityStart: 07-27-2025 End: 87-50-6781Prsvfrwgq Result EncounterAmy You FERRARO Work Phone: noMS External Department UnsolicitedStart: 07-27-2025 End: 64-14-3515Mnswlxwsg Result EncounterAmy You FERRARO Work Phone: noms External Department UnsolicitedStart: 07-14-2025 End: 92-09-3655Pqehgy flowsheetLesa FERRARO Work Phone: [facility] [place] OBGYNStart: 07-14-2025 End: 50-51-2756Rtkegp flowsheetLesa FERRARO Work Phone: noMS [place] OBGYNStart: 07-14-2025 End: 15-55-2451Hcmler outpatient visit 15 minutesLesa FERRARO Work Phone: noMS [place] OBGYNComment on above:Post-menopause bleeding; Pelvic cramping; Encounter for screening mammogram for malignant neoplasm of breast; Urinary tract infection without hematuria, site unspecified; Menorrhagia with regular cycleStart: 07-14-2025 End: 63-52-4137gfnianpcuqHMM RAMEYNot AvailableStart: 93-58-4065ivexkwuwyvQxwhf M AldaFacility:[facility]art: 05-20-2025 End: 98-68-8988qkhhyovxgxVwqqp M Alda MD Work Phone: [facility] Work Phone: Start: 05-20-2025 End: 92-45-0774Evrhbvb encounter procedureAngeshannon Caldwell C.O.D. AUDIT CLERK-[facility] Neu[facility] [place] Work Phone: Start: 04-29-2025 End: 50-47-5561Mpgzygjose Bianchi LIFESTYLE DIRECTOR Work Phone: [facility] MedinceStart: 04-29-2025 End: 94-10-8703Ubocugyakelin Bianchi NP Work Phone: [facility] MedinceStart: 04-29-2025 End: 07-23-9384Tzfbvz outpatient visit 25 minutesShnany Bianchi LIFESTYLE DIRECTOR Work Phone: noMS Danilo Lopez MedinceComment on above:Essential hypertension (Primary Dx); Pure hypercholesterolemia ; Type 2 diabetes mellitus with stage 2 chronic kidney disease, without long-term current use of insulin (HCC); Acute non-recurrent pansinusitis; Acute exacerbation of chronic obstructive pulmonary disease (COPD) (HCC); Shortness of breathStart: 04-29-2025 End: 11-24-7754hhcsyrenboTSJZMF M SHIVELYNot AvailableStart: 04-03-2025 End: 22-46-5289Ctudgbev Result EncounterCorey Alli DO Work Phone: noms External Department UnsolicitedStart: 04-03-2025 End: 20-48-1028Bterwqxp Result EncounterCorey Alli DO Work Phone: noms External Department UnsolicitedStart: 03-17-2025 Phoebe Castillo MDST. [facility] CredibleStart: 03-11-2025 End: 64-67-6314Qutcch flowsheetCorey Alli DO Work Phone: [facility] BCP OBStart: 03-11-2025 End: 40-86-4036Fdnvyo flowsheetCorey Alli DO Work Phone: NOXA BCP OBStart: 03-11-2025 End: 12-91-1347Hwynqf outpatient visit 15 minutesCorey Alli DO Work Phone: [facility] BCP OBComment on above:Cystitis (Primary Dx); HSV (herpes simplex virus) infection; Acute cystitis without hematuriaStart: 03-11-2025 End: 15-38-6614oxuqhjqazoZGGQD FAZIONot AvailableStart: 03-01-2025 End: 32-31-1226Aymytkrma Result EncounterGeneric External Data ProviderNOMS External Department UnsolicitedStart: 03-01-2025 End: 26-93-9031Wqmowxslp Result EncounterGeneric External Data ProviderNOMS External Department UnsolicitedStart: 03-01-2025 End: 41-20-6721styhiaskuaOtsoz M Alda MD Work Phone: [facility] Work Phone: Start: 03-01-2025 End: 39-67-3695Pkwuqlax Edd Smith MD Work Phone: [facility]-LAB Path Spec [place] HospStart: 01-18-2025 End: 10-35-7055RgqgwxZuci Hill PA Work Phone: ana BELLEVUEComment on above:Degeneration of intervertebral disc of lumbar region with discogenic back pain; Neck painStart: 01-13-2025 End: 59-67-3655Ibwqhu flowsheetCorey Alli DO Work Phone: [facility] BCP OBStart: 01-13-2025 End: 92-25-0350Pddvaq flowsheetCorey Alli DO Work Phone: [facility] BCP OBStart: 01-13-2025 End: 53-99-3037Icqsxe follow up visit related to original pxCorelaura Carson DO Work Phone: noms BCP OBComment on above:Postoperative follow-up Start: 01-13-2025 End: 90-83-2077nwkzgoswwpJAXLG FAZIONot AvailableStart: 01-02-2025 End: 67-51-5461JqxkzwTsqtw M Hemmer PA Work Phone: noms CI FMComment on above:Type 2 diabetes mellitus with stage 2 chronic kidney disease, without long-term current use of insulin (CMS/HCC) (Primary Dx)Start: 12-26-2024 End: 65-69-6955Lkcplbizn Result EncounterGeneric External Data ProviderNOMS External Department UnsolicitedStart: 12-26-2024 End: 40-58-0538Sjivbfgzk Result EncounterGeneric External Data ProviderNOMS External Department UnsolicitedStart: 12-26-2024 End: 89-98-7120yxlwdxexylOkpmo M Alda MD Work Phone: [facility] Work Phone: Start: 12-26-2024 End: 76-77-0055Hlsbzgyw Edd Smith MD Work Phone: [facility]-LAB Path Spec [place] HospStart: 12-18-2024 End: 93-06-5037Lwidhr outpatient visit 25 minutesJulia FERRARO Work Phone: noms CI FMComment on above:Postcoital bleeding (Primary Dx); Menopausal state; Pain in female genitalia on intercourse; Pre-operative examination; Type 2 diabetes mellitus with chronic kidney disease, without long-term current use of insulin, unspecified CKD stage (CMS/HCC); Essential hypertension (CMS/HCC); SmokerStart: 12-18-2024 End: 05-64-7420Dqaifsnwgioks examination Rehana FERRARO Work Phone: noms HealthcareStart: 12-18-2024 End: 70-93-9867phazqsvumfOQIOS M HEMMERNot AvailableStart: 12-17-2024 End: 61-89-4212Urznab outpatient visit 25 minutesAnnfranklyn FERRARO Work Phone: aNA BELLEVUEComment on above:Encounter for drug therapy (Primary Dx); Degeneration of intervertebral disc of lumbar region with discogenic back pain; Left arm pain; Neck pain; VertigoStart: 12-17-2024 End: 30-85-9333pfeocxcfmvKHVZ HILLNot AvailableStart: 99-19-6493Nvqvgmskfc Tanya Smith MD Work Phone: [facility]- CredibleStart: 12-10-2024 End: 94-93-2688sqzmpmalteEFWUW FAZIONot AvailableStart: 12-09-2024 End: 37-45-4682ArbjvyUetfeafm Riedy MAANA BELLEVUEComment on above:Chronic low back pain, unspecified back pain laterality, unspecified whether sciatica presentStart: 11-27-2024 End: 13-02-4821zgieithhjlXOYZS M ALLENNot AvailableStart: 11-24-2024 End: 71-58-3830Aalvkf Rosalba Alvarenga MD Work Phone: [facility] NB OPHTStart: 11-24-2024 End: 80-71-4842Cbhiph Rosalba Alvarenga MD Work Phone: [facility] NB OPHTStart: 11-24-2024 End: 64-28-1150Agutus follow up visit related to original Miguel Alvarenga MD Work Phone: NOW[facility] NB OPHTComment on above:Postoperative care for cataract (Primary Dx)Start: 11-24-2024 End: 13-73-3452apqexvnphfRWMVL M ALLENNot AvailableStart: 11-10-2024 End: 88-42-0269Gnqbqx flowsheetCorey Alli DO Work Phone: [facility] BCP OBStart: 11-10-2024 End: 13-06-8158Ljktxx flowsheetCorey Alli DO Work Phone: NOMS BCP OBStart: 11-10-2024 End: 98-18-7526Rdlrho outpatient visit 15 minutesCorey Alli DO Work Phone: NOZX BCP OBComment on above:Bleeding after intercourse; Menopausal stateStart: 11-10-2024 End: 51-03-5096ovmsxmiqxhAQGUE FAZIONot AvailableStart: 11-06-2024 End: 42-88-6697UamcjoUxlxmxzc Nyalthea [facility] [place]Comment on above:Chronic low back pain, unspecified back pain laterality, unspecified whether sciatica presentStart: 11-03-2024 End: 20-18-5064Guyqsy Rosalba Alvarenga MD Work Phone: noms NB OPHTStart: 11-03-2024 End: 89-75-3431Icadum Rosalba Alvarenga MD Work Phone: noms NB OPHTStart: 11-03-2024 End: 63-11-6268Knlqrl follow up visit related to original Miguel Alvarenga MD Work Phone: noms NB OPHTComment on above:Postoperative care for cataract (Primary Dx)Start: 11-03-2024 End: 83-32-2737nskjrwxfkzZIYWA M ALLENNot AvailableStart: 10-23-2024 End: 65-73-6541Wlsznap encounter She Alvarenga MD Work Phone: noms NB OPHTComment on above:Mechanical ptosis of left eyelid (Primary Dx)Start: 10-23-2024 End: 05-96-7190pksafcfncwEONEQ M ALLENNot AvailableStart: 10-22-2024 End: 77-93-4294Tumjks Yashira Bianchi LIFESTYLE DIRECTOR Work Phone: NOMS CI FMStart: 10-22-2024 End: 56-87-1008Cmtfbx Yashira Bianchi LIFESTYLE DIRECTOR Work Phone: NOMS CI FMStart: 10-22-2024 End: 85-24-8514Txpfge outpatient visit 25 minutesJayne Bianchi LIFESTYLE DIRECTOR Work Phone: NOMS CI FMComment on above:Mixed hyperlipidemia (CMS/HCC) (Primary Dx); Major depressive disorder, recurrent, moderate (CMS/HCC); BronchitisStart: 10-22-2024 End: 90-11-7682fyslnzxfjiZREYQOEl Alcantara AvailableStart: 10-15-2024 End: 93-91-1958Mckkic Yashira Bianchi LIFESTYLE DIRECTOR Work Phone: NOMS CI FMStart: 10-15-2024 End: 06-12-7915Bppvoe Yashira Bianchi LIFESTYLE DIRECTOR Work Phone: NOMS CI FMStart: 10-15-2024 End: 64-67-7440Hdwujq outpatient visit 25 minutesShnany Bianchi LIFESTYLE DIRECTOR Work Phone: NOMS CI FMComment on above:Bronchitis (Primary Dx); Morbid (severe) obesity due to excess calories (CMS/HCC); Essential (primary) hypertension (CMS/HCC); Body mass index (BMI) 36.0-36.9, adultStart: 10-15-2024 End: 04-01-2313arulwlaojqEFRXHBEl Alcantara AvailableStart: 10-01-2024 End: 24-23-2054GdgbhiJklgzqgm Riedy MAANA BELLEVUEComment on above:Chronic low back pain, unspecified back pain laterality, unspecified whether sciatica presentStart: 09-04-2024 End: 72-86-0629Ofepla Lillian FERRARO Work Phone: NOMS CI FMStart: 09-04-2024 End: 68-04-5578Bsohyg Lillian FERRARO Work Phone: NOMS CI FMStart: 09-04-2024 End: 18-45-8121Jmpwclr encounter Cecily FERRARO Work Phone: NOMS CI [...] Sensorineural hearing loss, bilateral; SmokerStart: 09-04-2024 End: 66-42-5872fxxndiolxaALIVPIsha Jones AvailableStart: 08-26-2024 End: 00-45-9281LliauiGgyvdxipKim MACARIO [facility] ROUTEComment on above: Chronic low back pain, unspecified back pain laterality, unspecified whether sciatica presentStart: 08-20-2024 End: 15-20-7984Nxbjmn outpatient visit 15 minutesMichelle FERRARO Work Phone: noms [facility] ROUTEComment on above:Degeneration of intervertebral disc of lumbar region with discogenic back pain (Primary Dx); Encounter for drug therapy; Left arm pain; Neck pain; VertigoStart: 08-20-2024 End: 56-72-9257jdalwyflatRPED HILLNot AvailableStart: 08-19-2024 End: 18-89-6802wwmlgqcwjgNKWTLG BENEDICTNot AvailableStart: 08-19-2024 End: 33-37-3328Mnlrpzz encounter procedureSmarycruz Vieira MD Work Phone: noms [place] ROUTEComment on above:Left arm pain (Primary Dx); Carpal tunnel syndrome on both sidesStart: 08-14-2024 End: 73-95-9475Uxsvgvvco Result EncounterGeneric External Data ProviderNOMS External Department UnsolicitedStart: 08-14-2024 End: 84-70-2408Tdpvbfpao Result EncounterGeneric External Data ProviderNOMS External Department UnsolicitedStart: 07-21-2024 End: 12-29-9919Ooozis Corinne FERRARO Work Phone: noMS [place] ROUTEStart: 07-21-2024 End: 48-13-4930Afktnr Corinne FERRARO Work Phone: NOMS [place] ROUTEStart: 07-21-2024 End: 78-48-7326Sarwdk outpatient visit [facility] hospitalMichelle F[facility] Work Phone: NOMS [place] ROUTEComment on above:Encounter for drug therapy (Primary Dx); Degeneration of intervertebral disc of lumbar region with discogenic back pain; Hyper reflexia; Left arm pain; Neck painStart: 07-21-2024 End: 21-22-9648ltaqgzlinqZOXR HILLNot AvailableStart: 07-08-2024 End: 79-88-7408DsgubiRtiopyra Rebeca MANOMS [place] ROUTEComment on above: Chronic low back pain, unspecified back pain laterality, unspecified whether sciatica presentStart: 07-07-2024 End: 47-76-7660Jxgbpl Rosalba Alvarenga MD Work Phone: noms NB OPHTStart: 07-07-2024 End: 19-84-0990Gclewv flowsBrynn Alvarenga MD Work Phone: noms NB OPHTStart: 06-04-2024 End: 17-06-2672Seqfnlbww encounterJulia FERRARO Work Phone: NOMS CI FMComment on above:Chronic low back pain, unspecified back pain laterality, unspecified whether sciatica presentStart: 06-03-2024 End: 19-19-5191ruhnsuzwhiAFWYN A SIMMetroHealth Main Campus [facility] Center HospitalStart: 06-03-2024 End: 95-65-5511Aynbot consultation new/estab patient 40 minCelio Brown MD Work Phone: proMedzbc Physicians Hepatobiliary, Pancreatic & Endocrine SurgeryComment on above:Serous cystadenoma of pancreas (Primary Dx) Start: 54-71-8973cksqnlmyybQofDvsmtk Hospital Ambulatory PPGStart: 05-27-2024 End: 44-94-6763Ljdxej outpatient visit 25 minutesErik Smith MD Work Phone: NOMS CI FMComment on above: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 (Primary Dx); Pancreas, cyst, true (CMS/HCC)Start: 05-13-2024 End: 42-24-3198Kjmbfhqcp Result EncounterJulia FERRARO Work Phone: NOMS External Department UnsolicitedStart: 05-13-2024 End: 02-09-6833Ptvkfxgfq Result EncounterJulia FERRARO Work Phone: NOMS External Department UnsolicitedStart: 05-13-2024 End: 82-87-7876Kgknvsult encounterJulia FERRARO Work Phone: NOMS CI FMStart: 88-02-9590Egjdn abstractingJulia FERRARO Work Phone: NOMS CI FMStart: 09-04-2023 End: 04-34-0016Jrobkpwzo Result EncounterJulia FERRARO Work Phone: NOMS External Department UnsolicitedStart: 09-04-2023 End: 17-22-4122Thnzplvdf Result EncounterJulia FERRARO Work Phone: NOEI External Department UnsolicitedStart: 05-09-2023 End: 38-05-8575tsseyhxzxbXmowqxh T PowersFacility:FTMCStart: 05-09-2023 End: 27-65-7813Mjvxnfz encounter procedureMichael T Block [facility] Start: 08-11-2022 End: 72-73-6568sklhynrilwED RUGLEIGHA ALDAFacility:M8Skutm: 07-22-2022 End: 13-22-3150evyptzdesyOU HUMPHREY Butler WESTFacility:S5Krryu: 04-20-2022 End: 99-53-6177gquingrjhuCtmhu BrownFacility:E2Fwovf: 04-13-2022 End: 80-05-7808uantuaehssVP HUMPHREY Butler WESTFacility:E3Aevcr: 02-10-2022 End: 84-43-8003fooeayhursPI BARON PAYFacility:P2Iqobm: 12-29-2021 End: 85-35-6290dybtipxztbYD Madison ZieberFacility:V2Chylf: 12-28-2021 End: 10-92-9035oornuddcoqWYBXAQ SHIVELYFacility:O7Rfxoe: 09-26-2021 End: 15-05-3178wdkrcxswvcAV WILL FAZIOFacility:G8Gfkyf: 09-14-2021 End: 47-62-6609ourlsfntwtFH RUGEN ALDAFacility:K2Dolek: 08-20-2021 End: 71-98-4226wyswqbtoxlGGEWIT RODRIGUEZFacility:H1 Procedures DateProcedureProcedure DetailPerforming ClinicianStart: 39-61-6264CO TOMOSYNTHESIS SCREENING Michele FERRARO Work Phone: Start: 58-56-1960IM PELVIS W/ TRANSVAGINKey FERRARO Work Phone: Start: 05-88-8425JlxhdzbrnfkEwd Ramey PA Work Phone: Start: 27-82-7419Lctij dip stick/tablet rgnt non-auto w/o micrscpAmy You FERRARO Work Phone: Start: 03-58-8842Zugbphllus glycosylated v3cDbnrkw Paulette Bianchi LIFESTYLE DIRECTOR Work Phone: Start: 40-87-3343XFTZMXB TRACT INFECTION (HTRX)Will Alli DO Work Phone: Start: 62-42-2648Oixfo dip stick/tablet rgnt non-auto w/o micrscpAmy You FERRARO Work Phone: Start: 42-23-6787Obcof Kian Smith MD Work Phone: Start: 55-10-0838IZUKH CULTURE - FRGeneric External Data ProviderStart: 66-13-0286LEI CBC WITH AUTO DIFFCorey Alli DO Work Phone: Start: 30-02-8958Hghoivxmjs glycosylated e5qJoxkaJulia FERRARO Work Phone: Start: 08-20-2024 End: 77-77-4208Rsmquv emg ea extremty w/paraspinl area richardSierra Tucsonfranklyn FERRARO Work Phone: Start: 91-52-2592Fwr spinal canal cervical w/o contrast matrlGeneric External Data ProviderStart: 53-78-9052Ucutxz field xm uni/bi w/interpretj limited examAmarilis Alvarenga MD Work Phone: Start: 07-07-2024 End: 59-74-7779Rxymb medical xm&eval compre new pt 1/> vstMechanical ptosis of left eyelidAmarilis Alvarenga MD Work Phone: comment on above:Mechanical ptosis of left eyelid (Primary Dx)Start: 00-25-2208Ylm abdomen w/o & w/contrast materialJulia FERRARO Work Phone: Start: 97-89-9232AA CHEST 2VJulia FERRARO Work Phone: Start: 60-33-2435VpfbpnkmcydVybqd Hemmer PA Work Phone: Start: 71-02-8088Zdrpcclkrqh observation [Identifier] in Cervix by Cyto stainJulia FERRARO Work Phone: Start: 44-35-4112Zzmdjit of hernia repairMichaemilvia Workstir Comment on above:ventral hernia x 4Start: 09-24-2007 CholecystectomyMicjust.mel Workstir Start: 10-97-0316Lcgr biopsy of liverMichael Block Start: 16-09-9777Arrh biopsy of pancreasMichael Block Start: 86-05-0868Gyctvgb of nasal sinus surgeryMichael Block Start: 97-14-8038Khlwocov sectionMictrishal Block Excision of lumbar intervertebral discMichael Block Plan of Treatment DateCare ActivityDetailAuthorStart: 63-73-8907Yqcfxzgs screeningDiabetes: Retinopathy ScreeningNOMS HealthcareStart: 16-74-5785Oqycelqf screeningDiabetes: Retinopathy ScreeningNOMS HealthcareStart: 20-05-1816Mgbimbjya for malignant neoplasm of colonNOMS HealthcareStart: 31-21-3710Fjqlm screening for protein Diabetes: Urine Protein ScreeningNOMS HealthcareStart: 67-17-8723Pdemdeelm for malignant neoplasm of cervixNOMS HealthcareStart: 12-12-2025Medicare Annual Wellness (AWV)Medicare Annual Wellness (AWV)NOMS HealthcareStart: 08-19-2025 End: 23-04-6163Lgonbkv encounter coyjlrsuf00/26/2025 2:00 PM EST Procedure Visit [facility] [facility] [address] [place] [address] Lesa Orta PA [address] [place], [place] [id number] NOM [place] OBGYNStart: 07-30-2025 Hemoglobin A1c measurementDiabetes: Hemoglobin B4XHKMI HealthcareStart: 07-14-2025 End: 23-24-2409QP Breast - bilateral ScreeningBilateral screening mammogram Imaging Routine Encounter for screening mammogram for malignant neoplasm of breast Expected: 07/14/2025 (Approximate), Expires: 09/13/2026[facility] Work Phone: comment on above:Expected: 07/14/2025 (Approximate), Expires: 09/13/2026Start: 07-14-2025 End: 44-97-9916FS PelvisUS Pelvis w/ TV Imaging Routine Post-menopause bleeding Pelvic cramping Expected: 07/14/2025 (Approximate), Expires: 07/14/2026[facility] HealthcareComment on above:Expected: 07/14/2025 (Approximate), Expires: 07/14/2026Start: 39-33-0821Vspts BMI ScreeningAdult BMI ScreeningProMarshall Medical Center North Health SystemStart: 27-10-5879Embgntm ScreeningTobacco ScreeningProMarshall Medical Center North Health SystemStart: 90-25-6066REZIO-19 Vaccine ( season)COVID-19 Vaccine ( season)[facility] HealthcareStart: 10-77-8392Gqxdeixmh vaccinationRIVERTON HOSPITAL HealthcareStart: 04-29-2025 End: 79-77-9945Oresv 1996 panel - Serum or PlasmaLipid panel Lab Routine Pure hypercholesterolemia Expected: 04/29/2025 (Approximate), Expires: 04/29/2026[facility] HealthcareComment on above:Expected: 04/29/2025 (Approximate), Expires: 04/29/2026Start: 04-29-2025 End: 05-39-7529Labqoddfjmcs/Creatinine panel in random UrineMicroalbumin / creatinine, urine ratio Lab Routine Type 2 diabetes mellitus with stage 2 chronic kidney disease, without long-term current use of insulin (HCC) Expected: 04/29/2025 (Approximate), Expires: 04/29/2026[facility] Work Phone: Comment on above:Expected: 04/29/2025 (Approximate), Expires: 04/29/2026Start: 04-29-2025 End: 38-38-5877Hoyfoxb encounter vhmabbnip83/06/2025 9:30 AM EDT Office Visit [facility] [address] [facility] [address] [place] [address] Janye Bianchi NP [address] [facility] [address] [place] [address] Essential hypertension (Primary Dx); Pure hypercholesterolemia ; Type 2 diabetes mellitus with stage 2 chronic kidney disease, without long-term current use of insulin (HCC)NOMGenevieve Carrasco [facility] Comment on above:Essential hypertension (Primary Dx); Pure hypercholesterolemia ; Type 2 diabetes mellitus with stage 2 chronic kidney disease, without long-term current use of insulin (HCC)Start: 04-21-2025 End: 00-79-2688Uwqna 1996 panel - Serum or PlasmaLipid panel Lab Routine Mixed hyperlipidemia ([facility]/HCC) Expected: 04/21/2025 (Approximate), Expires:10/22/2025 [facility] Work Phone: Comment on above:Expected: 04/21/2025 (Approximate), Expires: 10/22/2025Start: 94-93-7383Wehjgrigzl A1c measurementDiabetes: Hemoglobin L0QWGUO HealthcareStart: 03-11-2025 End: 17-87-5052Huxuuls encounter ntfoxisnr93/18/2025 11:00 AM EDT Office Visit NOM BCP OB [address] [place] [phone] Will Carson DO [address] [place] [address] ArrivedNOPA BCP OBComment on above:ArrivedStart: 44-60-7776Zvzdxuvi identified in Urine by CultureOhioHealth Grove City Methodist Hospitaltart: 19-07-8831JfhraWilson [facility] Start: 01-13-2025 End: 80-20-7595Xwatvta encounter ycuctvxtz43/22/2025 1:00 PM EDT Office Visit [facility]CP OB [address] [address] Will Carson, DO [address] [place], [place] [address] ArrivedNOORANGE COUNTY [facility] OBComment on above:ArrivedStart: 01-08-2025 End: 39-31-9637Pmehzqu encounter yarbyppkp01/17/2025 8:40 AM EDT Office Visit [facility]CP OB [address] [facility] [address] Lesa Orta PA [address] [place] [address] NOMS BCP OBStart: 14-30-1278Zoeov screening for protein Diabetes: Urine Protein ScreeningNOPA HealthcareStart: 12-18-2024 End: 37-83-3595Lycrjqf encounter sqmoclkgf75/27/2025 8:00 AM EDT Office Visit NOMS CI FM [address] [facility] [address] [place] [address] Julia Chen PA [address] [place] [address] NOMS CI FMStart: 12-17-2024 End: 89-91-9928Iodinik encounter xttjwtcba03/26/2025 9:40 AM EDT Office Visit [facility] [address] [place] [address] Michelle Cuenca PA [address] [place] [address] HELADIO REINAUEStart: 12-10-2024 End: 27-52-2041Maqnhcb encounter syxwkqniq87/19/2025 11:30 AM EDT Consult [facility] [address] [facility] [facility] [address] Will Carson, DO [address] [place] [address] NOMS BCP OBStart: 12-10-2024 End: 25-80-8880Ypnhvgzxzpaf / ancillary services bjzxuplyol74/19/2025 10:30 AM EDT Ancillary Procedure [facility] [address] [facility] [facility] [address] [place] [address] NOMS BCP OBStart: 11-24-2024 End: 44-17-8112Zghrhmj encounter thceuytat56/03/2025 9:15 AM EST Office Visit NOMS NB OPHT [address] [place] [address] Amarilis Alvarenga MD [address] [place] [address] ArrivedNOMS NB OPHTComment on above:ArrivedStart: 11-10-2024 End: 70-70-5412NG PelvisUS Pelvis w/ TV Imaging Routine Bleeding after intercourse Menopausal state Expected: 11/10/2024, Expires: 11/10/2025[facility] Work Phone: comment on above:Expected: 11/10/2024, Expires: 11/10/2025Start: 11-10-2024 End: 69-27-0385Zpgwlpl encounter procedureNOMS BCP OBComment on above:Arrived Start: 11-03-2024 End: 04-90-9140Rkafwic encounter procedureNOMS NB OPHTComment on above:Arrived Start: 10-23-2024 End: 73-94-4327Yykmhat encounter pscjjcztu93/30/2025 3:00 PM EST Procedure Visit NOMS NB OPHT [address] [place] [phone] Amarilis Alvarenga MD [address] [place] [address] NOMS NB OPHTStart: 10-22-2024 End: 04-03-1981Vlaeite encounter wcalfllsk58/29/2025 9:00 AM EST Office Visit NOMS CI FM [address] [place] [address] Jayne Bianchi, LIFESTYLE DIRECTOR [address] [place] [address] ArrivedNOMS CI FMComment on above:ArrivedStart: 10-15-2024 End: 82-65-1525Kqjgxhi encounter vilxookeu12/22/2025 9:00 AM EST Office Visit NOMS CI FM [address] [place] [address] Jayne Bianchi, LIFESTYLE DIRECTOR [address] [place] [address] ArrivedNOMS CI FMComment on above:ArrivedStart: 70-49-8190Vjzugkstcrhg Vaccine: Pediatrics (0 to 5 Years) and At-Risk Patients (6 to 64 Years) (3 of 3 - PCV20 or PCV21)Pneumococcal Vaccine: Pediatrics (0 to 5 Years) and At-Risk Patients (6 to 64 Years) (3 of 3 - PCV20 or PCV21)NOMS HealthcareStart: 10-02-2024 End: 97-64-8174Cxvwcvz encounter lplprhois27/09/2025 2:30 PM EST Procedure Visit NOMS AKSHAT OPHT [address] [place] [phone] Amarilis Alvarenga MD [address] [place] [address] NOMS OPHTStart: 09-04-2024 End: 49-01-0890Prrbf 1996 panel - Serum or PlasmaLipid panel Lab Routine Medicare annual wellness visit, subsequent Essential hypertension (CMS/HCC)Type 2 diabetes mellitus with stage 2 chronic kidney disease, without long-term current use of insulin (CMS/HCC) Pure hypercholesterolemia (CMS/HCC) Expected: 09/04/2024 (Approximate), Expires: 09/04/2025[facility] Work Phone: Comment on above:Expected: 09/04/2024 (Approximate), Expires: 09/04/2025Start: 09-04-2024 End: 24-89-8909Dnxmzta encounter zojvdgymv27/12/2024 11:30 AM EST Office Visit NOMS CI FM [address] [place] [address] Julia Chen PA [address] [place] [address] ArrivedNOMS CI FMComment on above:ArrivedStart: 08-28-2024 End: 77-21-9751Voplarn encounter lvocnrdap70/05/2024 2:30 PM EST Procedure Visit NOMS NB OPHT [address] [place] [phone] Amarilis Alvarenga MD [address] [place] [address] NOMS NB OPHTStart: 08-20-2024 End: 09-53-7371Gjitetl encounter kugagqyam33/27/2024 10:00 AM EST Office Visit [facility] [place] [facility] [address] [place] [address] Michelle Cuenca PA [address] [place] [address] NOMS [place] [facility] ROUTEStart: 08-19-2024 End: 12-97-6019Mbvelnu encounter zygmfregg06/26/2024 10:00 AM EST Procedure Visit NOM[facility] [place] [address] [place], [phone] Madison Vieira MD [address] [place] [address] NOMS [place] [facility] ROUTEStart: 98-03-4046Thzqfksndw A1c measurementDiabetes: Hemoglobin O0BTGQY HealthcareStart: 45-10-6341Bnajfrlwz for malignant neoplasm of breastMammogramNOPA HealthcareStart: 07-21-2024 End: 47-69-3339XIY 2 ExtremitiesEMG 2 Extremities Neurology Routine Left arm pain Expected: 07/21/2024 (Approximate), Expires: 07/21/2025[facility] Comment on above:Expected: 07/21/2024 (Approximate), Expires: 07/21/2025Start: 07-21-2024 End: 52-86-6002GK Cervical spine WO contrastMR cervical spine wo contrast Imaging Routine Hyper reflexia Left arm pain Neck pain Expected: 07/21/2024 (Approximate), Expires: 07/21/2025[facility] Work Phone: comment on above:Expected: 07/21/2024 (Approximate), Expires: 07/21/2025Start: 07-21-2024 End: 15-14-8257Wstedtx encounter procedureNOCHRIST HOSPITAL STATE ROUTEComment on above:ArrivedStart: 07-07-2024 End: 79-85-0916Xrrvkjz encounter mkpojthoy50/14/2024 2:15 PM EDT Office Visit NOMS OPHT [address] [place] [address] Amarilis Alvarenga MD [address] [place] [address] ArrivedBEAR [facility] OPHTComment on above:ArrivedStart: 05-25-2024 COVID-19 Vaccine ()COVID-19 Vaccine () [facility] SystemStart: 62-28-0358Hfywthhah vaccinationRIVERTON HOS[facility]ITAL Healthcare Start: 07-24-2024Medicare Annual Wellness (AWV)Medicare Annual Wellness (AWV) NOMS HealthcareStart: 65-49-9096Ugexvixbw vaccinationInfluenza Vaccine (#1)NOMS HealthcareComment on above:Postponed from 05/25/2023 (Patient Refused)Start: 90-12-2635Xsictygqg for malignant neoplasm of cervixPap SmearProMercy Health St. [facility]'S [facility] SystemStart: 85-06-8058Qjmgdcmzpl A1c measurementDiabetes: Hemoglobin M2VHZTU HealthcareStart: 10-30-2023 End: 41-23-3039Frmbewk encounter /06/2024 10:00 AM EST Office Visit NOMS MANJINDER [address] [facility] [address] [place] [address] Julia Chen PA [address] [facility] [address] [place] [address] NOMS CI FMStart: 50-16-8393Bxxwkdoiuoflcr of varicella zoster vaccineZoster (Shingles) Vaccine (2 of [address])[facility] SystemStart: 27-61-4786Jjfypqtsv for malignant neoplasm of cervixPap SmearRIVERTON HOSPITAL Healthcare Start: 39-34-5793RCjL,Tdap and Td Vaccines (1 - Tdap)DTaP,Tdap and Td Vaccines (1 - Tdap)[facility] SystemStart: 65-77-0193Poguuvsfw B Vaccines (1 of 3 - 19+ 3-dose series)Hepatitis B Vaccines (1 of 3 - 19+ 3-dose series)[facility] HealthcareStart: 59-55-3850Zltaj BMI Follow Up PlanAdult BMI Follow Up Plan [facility] SystemStart: 62-19-0480Pgaknwewvf ScreeningDepression Screening [facility] SystemStart: 28-76-8265Ievumnmc screeningDiabetes: Retinopathy ScreeningNOMS HealthcareStart: 86-08-8585VJhR/Tdap/Td Vaccines (1 - Tdap) DTaP/Tdap/Td Vaccines (1 - Tdap)[facility] HealthcareStart: 50-87-1114EUK Vaccines (1 of 1 - Standard series)MMR Vaccines (1 of 1 - Standard series)[facility] Start: 12-90-1793Jbkqsxmtw for malignant neoplasm of colonNOMS HealthcareStart: 29-96-5717Juqiedv CounselingTobacco CounselingProCleveland Clinic Euclid Hospitalca Health SystemCHLAMYDIA TRACHOMATIS (GENITO/STI)CHLAMYDIA TRACHOMATIS (GENITO/STI) Lab Routine Bleeding after intercourse Ordered: 11/10/2024[facility] HealthcareComment on above:Ordered: 11/10/2024Drugs of abuse panel - Urine by Screen methodToxicology screen, urine Lab Routine Encounter for drug therapy 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 Ordered: 12/17/2024[facility] Work Phone: comment on above:Ordered: 12/17/2024Neisseria gonorrhoeae DNA [Presence] in Unspecified specimen by TATIANA with probe detection Neisseria gonorrhea DNA probe, direct Lab Routine Bleeding after intercourse Ordered: 11/10/2024[facility] HealthcareComment on above:Ordered: 11/10/2024 SURESWAB(R) ADVANCED VAGINITIS PLUS, TMASURESWAB(R) ADVANCED VAGINITIS PLUS, TMA Pathology and Cytology Routine Bleeding after intercourse Ordered: 11/10/2024 [facility] HealthcareComment on above:Ordered: 11/10/2024URINE CULTURE - [facility] - [facility] Lab Routine 03/01/2025 11:48 [facility] Immunizations Immunization DateImmunizationNotesCare HtwelowsEkzookky22-42-1230dyktycjygbmw conjugate vaccine, 13 valSandy FERRARO Work Phone: [facility] CenterKgobuixeyv97-84-4669shnmii vaccine recombinant Julia FERRARO Work Phone: [facility] CenterJcvspbhcre75-03-4992keluvw vaccine, unspecified formulationCelio Brown MD Work Phone: pC[facility] Orthopedic CenterWzvijd07-18-2429qwyalsnawngs polysaccharide vaccine, 23 valSandy FERRARO Work Phone: [facility] Payers DatePayer CategoryPayerPolicy [id number]-pay2020Medicaid [id number] 2007Medicare [id number] [id number] 1968 [id number] 2.840.1.566090.3.57[id number] 2..840.1.559942.3.579.2.17526-02-6309Mjqslgv8420794 2.16840.1.507645.3.57[id number] 2.16840.1.720809.3.57[id number] 2.16.840.1.547988.3.579.[id number] 2.840.1.070516.3.579.2.17258-16-5288Mfnmgic7861850 2.840.1.842336.3.57[id number] 2.840.1.283231.3.57[id number] 2.840.1.473632.3.579.2.43317-57-1883Trgmjrl2329782 2.840.1.037247.3.57[id number] 2.840.1.761283.3.57[id number] 2.840.1.774899.3.57[id number] 2.840.1.095544.3.57[id number] 2.840.1.308508.3.57[id number] 2.840.1.440741.3.57[id number] 2.840.1.353389.3.57[id number] 2.840.1.831045.3.57[id number] 2.16.840.1.115874.3.579.[id number] 2.16.840.1.043047.3.579.[id number] 2.16840.1.721382.3.579.[id number] 2.16840.1.815204.3.579.2.[id number] 2.840.1.379096.3.579.2.[id number] 2.840.1.172152.3.579.2.532130-74-3973Yrbudnk3262818 2.0.1.346245.3.579.[id number] 2.840.1.173584.3.579.2.[id number] 2.840.1.349733.3.579.2.393381-62-9922Yamwpsr6843088 2.840.1.977638.3.579.2.841450-87-6222Qxjmtyd8635419 2.840.1.894376.3.579.2.815653-42-8717Yiiopdw2890379 2.840.1.413496.3.579.2.821762-52-9281Spooskh1756173 2.16840.1.331150.3.579.2.342981-61-7021Ktkhnbt8617962 2.16840.1.644603.3.579.2.457224-41-7482Pazrjil3123629 2.0.1.312024.3.579.2.945819-88-9663Lomzcsa7258294 2..0.1.832453.3.579.2.028897-72-5499Pckwwcn9625461 2..0.1.045255.3.579.2.801256-23-9410Gnpkuga0170087 2.0.1.412245.3.579.2.099702-64-2116Vdowczl7525622 2..0.1.975953.3.579.2.1259 [id number] 1962Medicare [id number] [id number] 2.840.1.284682.3.579.2.602Uqkzwud34205219 2.16840.1.829781.3.579.2.931Wcbjqjw83451501 2.840.1.935679.3.579.2.531 Social History DateTypeDetailFacilityStart: 20-65-7382Ejyyzce smoking statusHeavy tobacco smoker (finding)[facility] CenterStart: 09-[facility]2023 End: 09-51-3640Iha Assigned At BirthFeSelect [facility]-Fairhilltart: 04-18-2023 End: 58-52-6711Gaoptlz smoking status NHISSmokes tobacco dailyNOMS Healthcare History of tobacco useCigarette SmokerNOMS HealthcareStart: 04-18-2023 End: 14-63-6845Nltlpad use and exposureSmokeless tobacco non-userNOMS Healthcare Start: 09-03-2023 End: 11-17-3329Pcxnewg intakeEx-drinker (finding)[facility] HealthcareStart: 09-03-2023 End: 33-29-7854Vvgvmbi of Social functionNOMS HealthcareStart: 75-76-3153Ejgcbek Comment5 or less cigs/dayNOMS HealthcareStart: 48-01-0814Mdj Assigned At Not on fileNOMS HealthcareStart: 32-79-6688Fxssqch smoking status NHISEx-smoker [facility] HealthcareHistory of tobacco useCurrent smokerNOMS HealthcareStart: 68-46-6218Xjy often do you need to have someone [...] got money to buy more.Never trueNOMS HealthcareStart: 94-90-3713Xpiimqxnn beverage intake Lifetime non-drinker (finding)[facility] HospitaledicBag[facility] SystemTobacco smoking status NHIS Unknown if ever smokedUniversity Hospitals Portage [facility] Work Phone: Start: 12-27-2024 End: 58-38-4189PicKkyevw (finding)[facility]: 12-75-4827Bqk Assigned At BirthFeC[facility] Medical Equipment Procedure CodeEquipment CodeEquipment Original TextEquipment IdentifierDates1 each by Other route 1 (one) time each day.[id number] Functional Status QafcQaijcnrtfxUhqrxaIbieswja82-66-6748Zkyojgf Health Questionnaire 2 item (PHQ- 2) [Reported][facility] CenterBgehawuzon93-83-9725WRM-9 quick depression assessment panel [Reported.PHQ][facility] CenterHzcrygfyzm00-69-5524Axstvqu Health Questionnaire 2 item (PHQ- 2) [Reported][facility] CenterPiiskpzqcq67-33-7655Tjaqm score [AUDIT-C]0 04/03/2024 3:51 PM EDT Sunday, Vidya, [facility]KSau[facility] Clinical Notes 05-13-2024 to 07-14-2025 Note Date & ZrwsGfnnSjbzerlg10-01-8880 History of Present illness Narrative* JASMINE De [...] colon 04/07/2008 Meniere's disease 04/15/2023 Morbid obesity ([facility]) 04/15/2023 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 Other rosacea 04/15/2023 Pancreas, cyst, true (HCC) 04/15/2023 Low back pain 02/28/2008 Chronic pansinusitis 03/21/2019 Moderate persistent asthma without complication ([facility]) 04/16/2023 History of gastritis 04/16/2023 [...] Date Noted Stage 3a chronic kidney disease ([facility]) 03/31/2023 Acute gastritis 02/28/2008 Anxiety state 02/28/2008 Asthma with exacerbation ([facility]) 02/28/2008 Benign neoplasm of skin [...] syndrome 05/16/2023 Myopathy 07/26/2023 BMI 45.0-49.9, adult ([place]) 07/31/2023 Transient alteration of awareness 04/26/2024 Vertigo [...] was given to pt to obtain at [facility] and Annual appointment to be scheduled [...] of: JASMINE De Guzman documented in this encounterSaint Mary's Health CenterGpbwjupwiz46-63-4030 History of Present illness Narrative* Jayne Bianchi [...] effect in therapeutic use 11/22/2015 Anxiety Asthma ([facility]) 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 Carpal tunnel syndrome Chest pain Confusion 04/01/2015 and weakness COPD (chronic obstructive pulmonary disease) ([facility]) Degenerative disc disease, cervical Degenerative disc [...] Turbinates: Swollen. Left Turbinates: Swollen. Mouth/Throat: Lips: [place]. Mouth: Mucous membranes are moist. Pharynx: Uvula [...] disease, without long-term current use of insulin ([facility]) - Microalbumin / creatinine, urine ratio; [...] exacerbation of chronic obstructive pulmonary disease (COPD) ([facility]) - predniSONE (Deltasone) 10 MG tablet; [...] No follow-ups on file. 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 Other rosacea 04/15/2023 [...] Date Noted Stage 3a chronic kidney disease ([facility]) 03/31/2023 Acute gastritis 02/28/2008 Anxiety state 02/28/2008 Asthma with exacerbation ([facility]) 02/28/2008 Benign neoplasm of skin 09/27/2009 Abdominal muscle pain 02/28/2008 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 Exam conducted with a librarian head present. Vitals: Estimated body mass index is [...] of: amadou de guzman documented in this encounterNOCapital Region Medical CenterDfuicapmsg83-71-4886 Telephone encounter Note* Telephone Encounter - Shanti Christopher MA - 01/19/2025 3:04 PM EDT Patient last filled 12/11 [facility] Wlbitqowpm68-55-1735 Miscellaneous Notes* Telephone Encounter - Shanti Christopher MA - 01/19/2025 3:04 PM EDT Patient last filled 12/11 * Telephone Encounter - Dionne Jain - 01/19/2025 12:02 PM EDT Patient left vm to get a refill of Percocet. documented in this encounterSaint Mary's Health CenterJcwgdjiova29-14-8142 Telephone encounter Note* Telephone Encounter - Dionne Jain - 01/19/2025 12:02 PM EDT Patient left vm to get a refill of Percocet. [facility] CenterTkrmvtqdyr43-14-9551 History of Present illness Narrative* Julia Tang [...] Ambulatory Problems Diagnosis Date Noted Essential hypertension ([facility]) 03/31/2023 Generalized anxiety disorder ([facility]) 03/31/2023 Chronic obstructive pulmonary disease ([facility]) 03/31/2023 Pulmonary emphysema ([facility]) 03/31/2023 Pure hypercholesterolemia ([facility]) 03/31/2023 Sensorineural hearing loss, bilateral 03/31/2023 Smoker 03/31/2023 Type 2 diabetes mellitus with diabetic chronic kidney disease ([facility]) 03/31/2023 Abnormal gait 04/15/2023 Acquired hypothyroidism ([facility]) 02/28/2008 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 Bilateral tinnitus 04/15/2023 Chronic reactive otitis externa of both ears 04/15/2023 Drug-induced adrenocortical insufficiency ([facility]) 04/15/2023 DUB (dysfunctional uterine bleeding) 04/15/2023 Irritable colon 04/07/2008 Meniere's disease 04/15/2023 Morbid obesity ([facility]) 04/15/2023 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 Other rosacea 04/15/2023 Pancreas, cyst, true ([facility]) 04/15/2023 Low back pain 02/28/2008 Chronic pansinusitis 03/21/2019 Moderate persistent asthma without complication ([facility]) 04/16/2023 History of gastritis 04/16/2023 Bilateral carpal tunnel syndrome 04/24/2023 Chronic glossitis 05/16/2023 Myalgia 07/04/2023 Depression ([facility]) 07/31/2023 GERD (gastroesophageal reflux disease) 07/31/2023 History of TIA (transient ischemic attack) 07/31/2023 Infected sebaceous cyst 07/31/2023 Abnormal CBC 12/25/2023 Menopause 12/25/2023 Cervicalgia 04/26/2024 Fibromyalgia 04/26/2024 Pain in joint, pelvic region and thigh 04/26/2024 Benign paroxysmal positional vertigo 04/26/2024 Lumbosacral radiculopathy 04/26/2024 Anxiety and depression ([facility]) 04/26/2024 Degenerative disc disease, lumbar 04/26/2024 Degenerative disc disease, cervical 04/26/2024 Disturbance of skin sensation 04/26/2024 Median neuropathy 04/26/2024 Post concussion syndrome 04/26/2024 Serous cystadenoma of pancreas 06/03/2024 Bleeding after intercourse 11/10/2024 Resolved Ambulatory Problems Diagnosis Date Noted Stage 3a chronic kidney disease (HCC) ([facility]) 03/31/2023 Acute gastritis 02/28/2008 Anxiety state ([facility]) 02/28/2008 Asthma with exacerbation ([facility]) 02/28/2008 Benign neoplasm of skin 09/27/2009 Abdominal muscle pain 02/28/2008 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 Pansinusitis 04/15/2023 Swelling of vagina 04/15/2023 Abnormal vaginal bleeding 07/26/2016 Antidepressants causing adverse effect in therapeutic use 11/22/2015 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 Exam conducted with a librarian head present. Vitals: Estimated body mass index is [...] having a D&C Hysteroscopy performed at [facility] with Dr. Carson. Pathology results was reviewed with the patient in great detail and all restrictions have been lifted. Pt has dyspareunia- advised to use coconut oil. Pt to return for annual exam Follow Up: Patient is to return to the office for annual exam unless needed otherwise. Documented by Julia Tnag LPN on behalf of: Will Carson DO documented in this encounterNOCapital Region Medical CenterSbfybkrtfa77-89-8608 Telephone encounter Note* Telephone Encounter - JASMINE Roberts - 01/02/2025 12:02 PM EDT Refill sent. [facility] [id number] Miscellaneous Notes* Telephone Encounter - JASMINE Roberts - 01/02/2025 12:02 PM EDT Refill sent. documented in this encounterSaint Mary's Health CenterYwjvaekhsl56-56-7128 History of Present illness Narrative* JASMINE Roberts [...] 0.55 - 1.02 mg/dL Final TB[facility] EGFR-AF [place] 12/16/2024 >60 >=60 mL/min/1.73m 2 Final TBH EGFR-NON AF [place] 12/16/2024 >60 >=60 mL/min/1.73m 2 Final BUN [...] on 12/26/[address] Will Carson at [facility]. Menopausal state See above. Pain in [...] 3 months (around 03/20/2025). documented in this encounterSaint Mary's Health CenterFodlrxyhgg00-04-2913 History of Present illness Narrative* JASMINE Esteban [...] triceps, wrist extensors, wrist extensors, wrist flexor, mainframe software developer strength 5/5. LUE Strength deltoid, biceps, triceps, wrist extensors, wrist extensors, wrist flexor, mainframe software developer strength 5/5. RLE Strength illopsoas, quadriceps, tibialis [...] some increase in symptoms. Anxiety and depression ([facility]) Follows with Dr. Holder for [...] was not tampered with. documented in this [facility]03-18-2025 Telephone encounter Note* Telephone Encounter - Ramesh Jose MA - 12/09/2024 2:58 PM EDT OARRS reviewed due now [facility] CenterQvwkiujzwr01-76-7586 Miscellaneous Notes* Telephone Encounter - Ramesh Jose MA - 12/09/2024 2:58 PM EDT OARRS reviewed due now documented in this [facility]03-03-2025 History of Present illness Narrative* Amarilis Alvarenga MD - 11/24/2024 9:15 AM EST Assessment/Plan undercorrected documented in this [facility]02-17-2025 History of Present illness Narrative* [...] Ambulatory Problems Diagnosis Date Noted Essential hypertension ([facility]) 03/31/2023 Generalized anxiety disorder ([facility]) 03/31/2023 Chronic obstructive pulmonary disease ([facility]) 03/31/2023 Pulmonary emphysema ([facility]) 03/31/2023 Pure hypercholesterolemia ([facility]) 03/31/2023 Sensorineural hearing loss, bilateral 03/31/2023 Smoker 03/31/2023 Type 2 diabetes mellitus with diabetic chronic kidney disease ([facility]) 03/31/2023 Abnormal gait 04/15/2023 Acquired hypothyroidism ([facility]) 02/28/2008 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 Bilateral tinnitus 04/15/2023 Chronic reactive otitis externa of both ears 04/15/2023 Drug-induced adrenocortical insufficiency ([facility]) 04/15/2023 DUB (dysfunctional uterine bleeding) 04/15/2023 Irritable colon 04/07/2008 Meniere's disease 04/15/2023 Morbid obesity ([facility]) 04/15/2023 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 Other rosacea 04/15/2023 Pancreas, cyst, true ([facility]) 04/15/2023 Low back pain 02/28/2008 Chronic pansinusitis 03/21/2019 Moderate persistent asthma without complication ([facility]) 04/16/2023 History of gastritis 04/16/2023 Bilateral carpal tunnel syndrome 04/24/2023 Chronic glossitis 05/16/2023 Myalgia 07/04/2023 Depression ([facility]) 07/31/2023 GERD (gastroesophageal reflux disease) 07/31/2023 History of TIA (transient ischemic attack) 07/31/2023 Infected sebaceous cyst 07/31/2023 Abnormal CBC 12/25/2023 Menopause 12/25/2023 Cervicalgia 04/26/2024 Fibromyalgia 04/26/2024 Pain in joint, pelvic region and thigh 04/26/2024 Benign paroxysmal positional vertigo 04/26/2024 Lumbosacral radiculopathy 04/26/2024 Anxiety and depression ([facility]) 04/26/2024 Degenerative disc disease, lumbar 04/26/2024 Degenerative disc disease, cervical 04/26/2024 Disturbance of skin sensation 04/26/2024 Median neuropathy 04/26/2024 Post concussion syndrome 04/26/2024 Serous cystadenoma of pancreas 06/03/2024 Resolved Ambulatory Problems Diagnosis Date Noted Stage 3a chronic kidney disease (HCC) ([facility]) 03/31/2023 Acute gastritis 02/28/2008 Anxiety state ([facility]) 02/28/2008 Asthma with exacerbation ([facility]) 02/28/2008 Benign neoplasm of skin 09/27/2009 Abdominal muscle pain 02/28/2008 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 Pansinusitis 04/15/2023 Swelling of vagina 04/15/2023 Abnormal vaginal bleeding 07/26/2016 Antidepressants causing adverse effect in therapeutic use 11/22/2015 Diabetic renal disease ([facility]) 10/18/2017 Dizziness 11/22/2015 Moderate episode of recurrent major depressive disorder ([facility]) 11/22/2015 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 [...] nursing note reviewed. Exam conducted with a librarian head present. Vitals: Estimated body mass index is [...] have obtained and patient to schedule with [facility] prior to leaving office. Obtained vaginal cultures [...] of: Will Carson DO documented in this [facility]02-13-2025 Telephone encounter Note* Telephone Encounter - Ramesh Jose MA - 11/06/2024 9:53 AM EST 08/20/2024 Continue Percocet 5mg PO BID PRN for intractable pain related to lumbar degenerative spine disease.She is spacing out dosing and lasting longer than 30 days. Oarrs reviewed due now [facility] [id number] Miscellaneous Notes* Telephone Encounter - Ramesh Jose MA - 11/06/2024 9:53 AM EST 08/20/2024 Continue Percocet 5mg PO BID PRN for intractable pain related to lumbar degenerative spine disease.She is spacing out dosing and lasting longer than 30 days. Oarrs reviewed due now documented in this [facility]02-10-2025 History of Present illness Narrative* Amarilis Alvarenga MD - 11/03/2024 10:00 AM EST Assessment/Plan suture removal done documented in this [facility]01-30-2025 History of Present illness Narrative* [...] closed with 6-0 nylon taking note to grape picker portion of the levator with each pass. Ice pack applied for ten minutes, Tobradex ointment applied. Patient returned to waiting area in good condition. documented in this encounterSaint Mary's Health [id number] History of Present illness Narrative* Jayne Bianchi [...] No follow-ups on file. documented in this encounterSaint Mary's Health CenterAawvggbfbp01-70-4521 History of Present illness Narrative* Jayne Bianchi [...] No follow-ups on file. documented in this [facility]01-08-2025 Telephone encounter Note* Telephone Encounter - Ramesh Jose MA - 10/01/2024 2:52 PM EST The patient lm requesting refill of percocet 08/20/2024 Continue Percocet 5mg PO BID PRN for intractable pain related to lumbar degenerative spine disease.She is spacing out dosing and lasting longer than 30 days. Oarrs reviewed due 09/25/2024 [facility] CenterIsmuujsajm35-29-8540 Miscellaneous Notes* Telephone Encounter - Ramesh Jose MA - 10/01/2024 2:52 PM EST The patient lm requesting refill of percocet 08/20/2024 Continue Percocet 5mg PO BID PRN for intractable pain related to lumbar degenerative spine disease.She is spacing out dosing and lasting longer than 30 days. Oarrs reviewed due 09/25/2024 documented in this [facility]12-12-2024 History of Present illness Narrative* [...] you have a medical power of assistant county attorney?: No Current Outpatient Medications on File [...] living will and durable power of assistant county attorney for healthcare. We discussed telling [place] people about their advance directives such as close family members, and requested a copy to scan into the patient's EHR. An advance directive packet was offered to the patient. 3. Chronic bronchitis, unspecified chronic bronchitis type ([facility]) Provided pt with prescription for [...] tunnel syndrome The patient is seeing a chief medical officer for this condition, treatment is deferred to that specialist. Correspondence from that specialist and any available testing were reviewed during today's visit. 5. Cervicalgia This is a chronic medical condition that is stable since last assessment. No changes in treatment are suggested at this time. 6. Disturbance of skin sensation The patient is seeing a chief medical officer for this condition, treatment is deferred to that specialist. Correspondence from that specialist and any available testing were reviewed during today's visit. 7. Lumbosacral radiculopathy The patient is seeing a chief medical officer for this condition, treatment is deferred to that specialist. Correspondence from that specialist and any available testing were reviewed during today's visit. 8. Median nerve neuropathy, unspecified laterality The patient is seeing a chief medical officer for this condition, treatment is deferred to that specialist. Correspondence from that specialist and any available testing were reviewed during today's visit. 9. Notalgia paresthetica The patient is seeing a chief medical officer for this condition, treatment is deferred to that specialist. Correspondence from that specialist and any available testing were reviewed during today's visit. 10. Post concussion syndrome The patient is seeing a chief medical officer for this condition, treatment is deferred to that specialist. Correspondence from that specialist and any available testing were reviewed during today's visit. 11. Moderate persistent asthma without complication ([facility]) Provided pt with prescription for the Anoro. Advised pt to use the maintenance inhaler daily to help with current symptoms, and to try to prevent flare ups. 12. Panlobular emphysema ([facility]) Provided pt with prescription for the Anoro. Advised pt to use the maintenance inhaler daily to help with current symptoms, and to try to prevent flare ups. 13. Essential hypertension ([facility]) Patient's blood pressure is currently well controlled. Continue with current medications and I willcontinue to monitor. Goal BP remains less than 130/80. - Lipid panel 14. 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 Correspondence from that specialist and any available testing were reviewed during today's visit. 15. Drug-induced adrenocortical insufficiency (CMS/HCC) The patient is seeing a chief medical officer for this condition, treatment is deferred to [...] at this time. 19. Pancreas, cyst, true ([facility]) The patient is seeing a chief medical officer for this condition, treatment is deferred to that specialist. Correspondence from that specialist and any available testing were reviewed during today's visit. 20. Serous cystadenoma of pancreas The patient is seeing a chief medical officer for this condition, treatment is deferred to that specialist. Correspondence from that specialist and any available testing were reviewed during today's visit. 21. DUB (dysfunctional uterine bleeding) The patient is seeing a chief medical officer for this condition, treatment is deferred to [...] extremity pain The patient is seeing a chief medical officer for this condition, treatment is deferred to [...] suggested at this time. 27. Acquired hypothyroidism ([facility] [place]) This is a chronic medical condition that is stable since last assessment. No changes in treatment are suggested at this time. Will continue to monitor with routine labs. 28. Morbid obesity ([facility]) Encouraged portion control, decrease simple sugars and carbohydrates, gradually increase activity level. Aim for gradual steady weight loss. 29. Type 2 diabetes mellitus with stage 2 chronic kidney disease, without long- term current use of insulin ([facility]) Will recheck A1c at follow [...] at this time. 36. Anxiety and depression ([facility]) This is a chronic medical condition that is stable since last assessment. No changes in treatment are suggested at this time. 37. Benign paroxysmal positional vertigo due to bilateral vestibular disorder The patient is seeing a chief medical officer for this condition, treatment is deferred to that specialist. Correspondence from that specialist and any available testing were reviewed during today's visit. 38. Bilateral tinnitus This is a chronic medical condition that is stable since last assessment. No changes in treatment are suggested at this time. 39. Mild episode of recurrent major depressive disorder (HCC) ([facility]) This is a chronic medical condition that is stable since last assessment. No changes in treatment are suggested at this time. 40. Generalized anxiety disorder ([facility]CC) This is a chronic medical condition that is stable since last assessment. No changes in treatment are suggested at this time. 41. History of TIA (transient ischemic attack) The patient is seeing a chief medical officer for this condition, treatment is deferred to that specialist. Correspondence from that specialist and any available testing were reviewed during today's visit. 42. Chronic low back pain, unspecified back pain laterality, unspecified whether sciatica present The patient is seeing a chief medical officer for this condition, treatment is deferred to that specialist. Correspondence from that specialist and any available testing were reviewed during today's visit. 43. Meniere's disease of both ears The patient is seeing a chief medical officer for this condition, treatment is deferred to that specialist. Correspondence from that specialist and any available testing were reviewed during today's visit. 44. Menopause The patient is seeing a chief medical officer for this condition, treatment is deferred to [...] Diabetes. Julia STRICKLAND PA-C documented in this encounterSaint Mary's Health [id number] Telephone encounter Note* Telephone Encounter - Ramesh Jose MA - 08/26/2024 9:24 AM EST The pt calls stating that she had a visit on Sunday last when our system was down. Her percocet was not sent. Asking for refill to go to [facility] in [place]. Oarrs reviewed Due Now. [facility] [id number] Miscellaneous Notes* Telephone Encounter - Ramesh Jose MA - 08/26/2024 9:24 AM EST The pt calls stating that she had a visit on Sunday last when our system was down. Her percocet was not sent. Asking for refill to go to [facility] in [place]. Oarrs reviewed Due Now. documented in this [facility]11-27-2024 History of Present illness Narrative* [...] triceps, wrist extensors, wrist extensors, wrist flexor, mainframe software developer strength 5/5. LUE Strength deltoid, biceps, triceps, wrist extensors, wrist extensors, wrist flexor, mainframe software developer strength 5/5. RLE Strength illopsoas, quadriceps, tibialis [...] to her job. Stable Anxiety and depression ([facility]) Follows with Dr. Holder for [...] new or worsening symptoms documented in this encounterSaint Mary's Health [id number] History of Present illness Narrative* Shanti Christopher MA - 08/19/2024 10:00 AM EST Images from the original note were not included. Reason for Appointment: EMG Patient: Keith Washington : 1970 EMG Computer: [employer] Referring Physician: Michelle Cuenca PA-C EMG: [facility] director hair: Shanti Christopher [facility] Office Location: [place] Reason for EMG: c/o pain in the upper left arm. Neck pain. Going on for the past 6 months. Hx of CTS release on the right. Hx of DM, not taking blood thinners. Comments: Procedure explained to the patient who expressed understanding. documented in this [facility]10-28-2024 History of Present illness Narrative* JASMINE Esteban - 07/21/2024 10:20 AM EDT Subjective Keith Washington is a 54 y.o. [...] triceps, wrist extensors, wrist extensors, wrist flexor, mainframe software developer strength 5/5. LUE Strength deltoid, biceps, triceps, wrist extensors, wrist extensors, wrist flexor, mainframe software developer strength 5/5. RLE Strength illopsoas, quadriceps, tibialis [...] Symptoms continue at baseline. Anxiety and depression ([facility]) Follows with Dr. Holder for [...] new or worsening symptoms documented in this [facility]10-15-2024 Telephone encounter Note* Telephone Encounter - Ramesh Jose MA - 07/08/2024 2:11 PM EDT OARRS reviewed Due Now [facility] [id number] Miscellaneous Notes* Telephone Encounter - Ramesh Jose MA - 07/08/2024 2:11 PM EDT OARRS reviewed Due Now documented in this [facility]10-14-2024 History of Present illness Narrative* Amarilis Alvarenga MD - 07/07/2024 2:15 PM EDT Assessment/Plan symptomatic ptosis left eye (OS) Rba explained Levator advance OS documented in this [facility]09-11-2024 Telephone encounter Note* Telephone Encounter - JASMINE Roberts - 06/04/2024 11:52 AM EDT 5 mg dosage sent in for pt. [facility] [id number] Miscellaneous Notes* Telephone Encounter - JASMINE Roberts - 06/04/2024 11:52 AM EDT 5 mg dosage sent in for pt. * Telephone Encounter - Coco Pina MA - 06/04/2024 9:53 AM EDT Pt is wanting to increase her mounjaro to the 5mg as her sugars are still increase, ok to fill for pt documented in this encounterSaint Mary's Health [id number] Telephone encounter Note* Telephone Encounter - Coco Pina MA - 06/04/2024 9:53 AM EDT Pt is wanting to increase her mounjaro to the 5mg as her sugars are still increase, ok to fill for pt [facility] [id number] History of Present illness Narrative* Betty Hardy MD - 06/03/2024 1:30 PM EDT Hepatobiliary and Pancreas Surgery Consultation Treatment Team PCP: No primary care provider on file. Medical Oncologist: n/a Radiation Oncologist: n/a Trim Technician: Dr. Zuniga Chief Complaint: Pancreatic cyst HPI: Keith Washington is a 54 year old female presenting for evaluation of pancreatic cyst. Patient reports [id number] A/P for abdominal pain [...] Resource Strain: Low Risk (04/03/2024) [facility] Overall Financial Resource Strain (CARDIA) Difficulty of Paying Living Expenses: Not very hard Food Insecurity: No Food Insecurity (06/03/2024) Hunger Screening Food Insecurity - Worry: Never True Food Insecurity - Inability: Never True Transportation Needs: No Transportation Needs (04/03/2024) [facility] PRAPARE - Transportation Lack of Transportation (Medical): No Lack of Transportation (Non-Medical): No Physical Activity: Not on file Stress: No Stress Concern Present (04/03/2024) Received from [facility] [place] of Occupational Health - Occupational Stress Questionnaire [...] unless patient becomes symptomatic. [facility] History of Present illness Narrative* Erik Smith MD - 05/27/2024 2:15 PM EDTAssociated Problem(s): Pancreas, cyst, true (CMS/HCC) Patient has seen Dr. Shah and biopsy apparently was done at one time. The CT references this has been stable over the past 12 years, since 2011. Has also seen Dr. Madison. Dr. Reyes in [place] was sent a referral. Also saw a specialist in [place] that did biopsy. She will ow [...] SAY ON REFERRAL URGENT phone # is [phone] Pt states they need paperwork from 2007 [...] also seen Dr. Madison. Dr. Reyes in [place] was sent a referral. Also saw a specialist in [place] that did biopsy. She will ow see Dr. Brown who can do biopsy at the same time EUS No follow-ups on file. documented in this encounterSaint Mary's Health [id number] Telephone encounter Note* Telephone Encounter - JASMINE [...] referral to General Surgery for a consult. [facility] [id number] Miscellaneous Notes* Telephone Encounter - JASMINE Roberts [...] Surgery for a consult. documented in this encounterSaint Mary's Health CenterEvaluation + Plan note No data available for this section [facility]* Diagnosis 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 Pancreas, cyst, true (CMS/HCC) Cyst and pseudocyst of pancreas Mechanical ptosis of left eyelid- Primary documented in this encounter [facility] CenterEvaluation note* Diagnosis Neoplasm of uncertain behavior of [...] (BMI) 36.0-36.9, adult documented in this encounter [facility]* Diagnosis 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 Pancreas, cyst, true (CMS/HCC) Cyst and pseudocyst of pancreas Mixed hyperlipidemia (CMS/HCC)- Primary Mixed hyperlipidemia Major depressive disorder, recurrent, moderate (CMS/HCC) Major depressive disorder, recurrent episode, moderate Bronchitis Bronchitis, not specified as acute or chronic documented in this encounter [facility]* Diagnosis 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 Pancreas, cyst, true (CMS/HCC) Cyst and pseudocyst of pancreas Mechanical ptosis of left eyelid- Primary documented in this encounter [facility]* Diagnosis Neoplasm of uncertain behavior [...] of pancreas- Primary documented [facility] encounter [facility] Diagnosis Neoplasm of uncertain [...] whether sciatica present documented in this encounter [facility]* Diagnosis 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 Pancreas, cyst, true (CMS/HCC) Cyst and pseudocyst of pancreas Encounter for drug therapy- Primary Degeneration of intervertebral disc of lumbar region with discogenic back pain Left arm pain Pain in soft tissues of limb Neck pain Cervicalgia Vertigo Dizziness and giddiness documented in this encounter [facility]* Diagnosis Neoplasm of uncertain behavior [...] Tobacco use disorder documented in this encounter [facility] HealthcareEvaluation noteNo assessment information availableUniversity Hospitals Portage Medical Center Work Phone: Evaluation note* Diagnosis 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 Pancreas, cyst, true (CMS/HCC) Cyst and pseudocyst of pancreas Type 2 diabetes mellitus with stage 2 chronic kidney disease, without long-term current use of insulin (CMS/HCC)- Primary documented in this encounter [facility]* Diagnosis 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 Pancreas, cyst, true (CMS/HCC) Cyst and pseudocyst of pancreas Postoperative follow-up Follow-up examination, following unspecified surgery documented in this encounter [facility] note* Diagnosis 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 Pancreas, cyst, true (CMS/HCC) Cyst and pseudocyst of pancreas Degeneration of intervertebral disc of lumbar region with discogenic back pain Neck pain Cervicalgia documented in this encounter [facility]* Diagnosis 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 Pancreas, cyst, true (HCC) Cyst and pseudocyst of pancreas Cystitis- Primary Unspecified cystitis HSV (herpes simplex virus) infection Herpes simplex without mention of complication Acute cystitis without hematuria documented in this encounter [facility]* Diagnosis Neoplasm of uncertain behavior [...] Shortness of breath documented in this encounter [facility]* Diagnosis 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 Pancreas, cyst, true (HCC) Cyst and pseudocyst of pancreas Post-menopause bleeding Postmenopausal bleeding Pelvic cramping Encounter for screening mammogram for malignant neoplasm of breast Urinary tract infection without hematuria, site unspecified Menorrhagia with regular cycle documented in this encounter [facility] HealthcareHospital Discharge instructions No data available for this section [facility] HospitalInstructionsNot on filedocumented in this encounter [facility] HospitalProgress note No data available for this section [facility] HospitalReason for referral (narrative)No reason for referral information availableAccess [facility] Work Phone: Reason for visit Narrative* Consultation (Routine) - Pending ReviewSpecialtyDiagnoses / ProceduresReferred By ContactReferred To ContactGeneral Surgery Diagnoses 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, cyst, true Procedures [place] OFFICE OUTPATIENT VISIT 60-74 MINS HIGH MDM AMB REFERRAL TO GENERAL SURGERY Erik Smith MD [address] [facility] [address] [place] [address] Celio Brown MD [address], [facility] [address] [place] [address] Referral IDStatusReasonStart DateExpiration DateVisits RequestedVisits [id number] Review/ [facility] [employer] [facility] Summary Purpose Family History Relationship Condition Age [...] section and content) DATE CREATED AUTHOR 11/16/2021 [facility] [employer] DATE CREATED AUTHOR AUTHOR'S ORGANIZ ATION 08/16/2022 [facility] DATE CREATED AUTHOR AUTHOR'S ORGANIZ ATION 06/06/2023 [facility] DATE CREATED AUTHOR AUTHOR'S ORGANIZ ATION 06/04/2024 [facility] DATE CREATED AUTHOR AUTHOR'S ORGANIZ ATION 06/05/2024 [facility] DATE CREATED AUTHOR AUTHOR'S ORGANIZ ATION 05/06/2025 [facility] DATE CREATED AUTHOR AUTHOR'S ORGANIZ ATION 06/17/2025 [facility] DATE CREATED AUTHOR AUTHOR'S ORGANIZ ATION 07/15/2025 [facility] EPIC Patient Care team informatio [...] S tart: March 17, 2025 [facility] ProviderActiveStart: March 17, 2025 Team Status: Inactive Member Role Status Dates Mary Shipley APRN Attending Provider Active Start: May 20, 2025 End: May 20, 2025Richy Ruiz Care ProviderActiveStart: May 20, 2025 End: May 20, 2025Team MemberRelationshipSpecialtyStart DateEnd Date Erik Smith MD [address] [facility] [address] [place] [address] PCP - [facility]04/16/23 Erik Smith MD [address] [facility] [address] [place] [address] PCP - ACO [facility]09/23/23Te MemberRelationshipSpecialtyStart DateEnd Date Erik Smith MD [address] [place] [address] PCP - [facility] Medicine04/16/23 Erik Smith MD [address] [place] [address] [facility]09/23/23Sunday, Vidya, COOKING CASING AND DRYING SUPERVISOR [address] [place] [address] Licensed Practical NurseJenkins County Medical Center03/26/24Te MemberRelationshipSpecialty Start DateEnd Date Erik Smith MD [address] [place] [address] [facility] - [facility]04/16/23 Erik Smith MD [address] [place] [address] [facility]09/23/23Sunday, Vidya, COOKING CASING AND DRYING SUPERVISOR [address] [place] [address] Licensed Practical [facility]Card[facility] Medicine03/26/24Te MemberRelationshipSpecialty Start DateEnd Date Erik Smith MD [address] [place] [address] PCP - [facility]04/16/23 Erik Smith MD [address] [place] [address] PCP - [facility]09/23/23Sunday, Vidya, COOKING CASING AND DRYING SUPERVISOR [address] [place] [address] Licensed Practical NurseFamily Medicine03/26/24Team MemberRelationshipSpecialty Start DateEnd Date Erik Smith MD [address] [place] [address] PCP - GeneralFamily Medicine04/16/23 Erik Smith MD [address] [place] [address] PCP - ACO [facility]09/23/23SundayVidya LPN [address] [place] [address] Licensed Practical NurseFakindred hospital northeast Medicine03/26/24Team MemberRelationshipSpecialty Start DateEnd Date Erik Smith MD [address] [place] [address] PCP - GeneralFamily Medicine04/16/23 Erik Smith MD [address] [place] [address] PCP - [facility]09/23/23SundayVidya LPN [address] [place] [address] Licensed Practical Nursemily Medicine03/26/24Te MemberRelationshipSpecialty Start DateEnd Date Erik Smith MD [address] [place] [address] PCP - GeneralFamily Medicine04/16/23 Erik Smith MD [address] [place] [address] PCP - ACO [facility]09/23/23Sunday, Vidya, COOKING CASING AND DRYING SUPERVISOR [address] [place] [address] Licensed Practical [facility]Card[facility] Medicine03/26/24Te MemberRelationshipSpecialty Start DateEnd Date Erik Smith MD [address] [place] [address] PCP - [facility]Card[facility] Medicine04/16/23 Erik Smith MD [address] [place] [address] [facility] - [facility] [place]09/23/23Sunday, Vidya, COOKING CASING AND DRYING SUPERVISOR [address] [place] [address] Licensed Practical NurseJenkins [facility] Medical Center03/26/24Te MemberRelationshipSpecialty Start DateEnd Date Erik Smith MD [address] [place] [address] PCP - [facility] Medicine04/16/23 Erik Smith MD [address] [place] [address] [facility] - [facility]09/23/23Sunday, Vidya, COOKING CASING AND DRYING SUPERVISOR [address] [place] [address] Licensed Practical NurseCard[facility] Medicine03/26/24Te MemberRelationshipSpecialty Start DateEnd Date Erik Smith MD [address] [place] [address] PCP - [facility] Medicine04/16/23 Erik Smith MD [address] [place] [address] PCP - [facility]09/23/23Sunday, PATY DasilvaN [address] [place] [address] Licensed Practical NurseFamily Medicine03/26/24Team MemberRelationshipSpecialty Start DateEnd Date Erik Smith MD [address] [place] [address] PCP - [facility] Medicine04/16/23 Erik Smith MD [address] [place] [address] PCP - [facility]09/23/23Sunday, MIKEY Dasilva [address] [place] [address] Licensed Practical NurseUnitypoint Health-Allen Hospitally Medicine03/26/24Team MemberRelationshipSpecialty Start DateEnd Date Erik Smith MD [address] [place] [address] PCP - GeneralFamily Medicine04/16/23 Erik Smith MD [address] [place] [address] PCP - [facility]09/23/23SundayVidya LPN [address] [place] [address] Licensed Practical NurseFamily Medicine03/26/24Team MemberRelationshipSpecialty Start DateEnd Date Erik Smith MD [address] [place] [address] PCP - Generalmily Medicine04/16/23 Erik Smith MD [address] [place] [address] PCP - ACO [facility]09/23/23 Coco Paula, RN Licensed Practical [facility]Card[facility] Medicine10/31/24Te MemberRelationshipSpecialty Start DateEnd Date Erik Smith MD [address] [place] [address] PCP - [facility]04/16/23 Erik Smith MD [address] [place] [address] PCP - [facility]09/23/23 Coco Paula, ASHLEY Licensed Practical NurseJenkins [facility] Medical Center10/31/24Te MemberRelationshipSpecialty Start DateEnd Date Erik Smith MD [address] [place] [address] PCP - [facility]04/16/23 Erik Smith MD [address] [place] [address] PCP - [facility]09/23/23 Coco Paula, RN Licensed Practical NurseJenkins County Medical Center10/31/24Te MemberRelationshipSpecialty Start DateEnd Date Erik Smith MD [address] [place] [address] PCP - [facility]04/16/23 Erik Smith MD [address] [place] [address] PCP - [facility]CO [facility]09/23/23 Coco Paula, ASHLEY Licensed Practical [facility]Card[facility] Medicine10/31/24Te MemberRelationshipSpecialty Start DateEnd Date Erik Smith MD [address] [place] [address] PCP - GeneralJen[facility] Center04/16/23 Erik Smith MD [address] [place] [address] PCP - ACO [facility]09/23/23 Coco Paula, ASHLEY Licensed Practical NurseJenkins County Medical Center10/31/24Te MemberRelationshipSpecialty Start DateEnd Date Erik Smith MD [address] [place] [address] PCP - [facility]04/16/23 Erik Smith MD [address] [place] [address] PCP - ACO [facility]09/23/23 Coco Paula, ASHLEY Licensed Practical NurseJenkins County Medical Center10/31/24Te MemberRelationshipSpecialty Start DateEnd Date Erik Smith MD [address] [place] [address] PCP - [facility]04/16/23 Erik Smith MD [address] [place] [address] PCP - [facility]09/23/23 Coco Paula, RN Licensed Practical NurseFamily Medicine10/31/24Team MemberRelationshipSpecialty Start DateEnd Erik Smith MD [address] [facility] [address] [place] [address] PCP - GeneralFamily Medicine04/16/23 Erik Smith MD [address] [facility] [address] [place] [address] PCP - [facility]09/23/23 Coco Paula, RN Licensed Practical NurseFamily Medicine Lulú Pringle, [facility] 12/10/24Team MemberRelationshipSpecialtyStart DateEnd Erik Smith MD [address] [facility] [address] [place] [address] PCP - Generalmily Medicine04/16/23 Erik Smith MD [address] [facility] [address] [place] [address] PCP - ACO [facility]09/23/23 Lulú Pringle, [facility] 12/10/24 Michelle Cuenca PA [address] [facility] [address] [place] [address] Physician AssistantNeurology12/17/24Team MemberRelationshipSpecialtyStart DateEnd Erik Smith MD [address] [facility] [address] [place] [address] PCP - GeneralFamily Medicine04/16/23 Erik Smith MD [address] [place] [address] PCP - [facility]09/23/23 [facility] 12/10/[address] Cuenc[address] PA [address] [place], [place] [address] Physician AssistantNeurology12/17/24Team MemberRelationshipSpecialtyStart DateEnd Date Erik Smith MD [address] [facility] [address] [place] [address] PCP - [facility]Card[facility] Medicine04/16/23 Erik Smith MD [address] [facility] [address] [place] [address] PCP - [facility]09/23/23 [facility] 12/10/24 Michelle Cuenca PA [address] [place], [place] [id number] Physician AssistantNeurology12/17/24 Team Status: Active Member Role [...] MemberRelationshipSpecialtyStart DateEnd Date Erik Smith MD [address] [place] [address] PCP - GeneralFanhly Medicine04/16/23 Erik Smith MD [address] [place] [address] PCP - ACO Reach09/23/23 Lulú Pringle, [facility] 12/10/24 Michelle Cuenca PA [address] [place] [address] Physician AssistantNeurology12/17/24Team MemberRelationshipSpecialtyStart DateEnd Date Erik Smith MD [address] [facility] [address] [place] [address] PCP - GeneralFamily Medicine04/16/23 Erik mSith MD [address] [facility] [address] [place] [address] PCP - ACO [facility]09/23/23 Lulú Pringle [facility] 12/10/24 Michelle Cuenca PA [address] [place] [address] Physician AssistantNeurology12/17/24Te MemberRelationshipSpecialtyStart DateEnd Date Erik Smith MD [address] [facility] [address] [place] [address] PCP - GeneralFamily Medicine04/16/23 Erik Smith MD [address] [facility] [address] [place] [address] PCP - ACO [facility]09/23/23 Lulú Pringle, [facility] 12/10/24 Michelle Cuenca PA [address] [place] [address] Physician AssistantNeurology12/17/24Team MemberRelationshipSpecialtyStart DateEnd Date Erik Smith MD [address] [place] [address] PCP - Generalmily Medicine04/16/23 Erik Smith MD [address] [place] [address] PCP - ACO Reach09/23/23 Lulú Pringle, [facility] 12/10/24 Michelle Cuenca PA Physician AssistantNeurology12/17/24Team MemberRelationshipSpecialtyStart DateEnd Date Erik Smith MD [address] [place] [address] [facility]04/16/23 Erik Smith MD [address] [place] [address] PCP - ACO Reach09/23/23 Lulú Pringle, [employer] [address] [place] [address] 12/10/24 Michelle Cuenca PA [address] [place] [address] Physician AssistantNeurology12/17/24Team MemberRelationshipSpecialtyStart DateEnd Date Erik Smith MD [address] [place] [address] [facility] - [facility]04/16/23 Erik Smith MD [address] [place] [address] PCP - ACO Reach09/23/23 Lulú Pringle LPN [address] [place] [address] 12/10/24 Michelle Cuenca PA [address] [place] [address] Physician AssistantNeurology12/17/24Team MemberRelationshipSpecialtyStart DateEnd Date Erik Smith MD [address] [place] [address] PCP - Generalmily Medicine04/16/23 Erik Smith MD [address] [place] [address] PCP - O Reach09/23/23 Lulú Pringle LPN [address] [place] [address] Michelle Cuenca PA [address] [place] [address] Physician AssistantNeurology12/17/24Team MemberRelationshipSpecialtyStart DateEnd Date Erik Smith MD [address] [place] [address] PCP - Generalmily Medicine04/16/23 Erik Smith MD [address] [place] [address] PCP - ACO Reach09/23/23 Michelle Cuenca PA [address] [place] [address] Physician AssistantNeurology12/17/24Team MemberRelationshipSpecialtyStart DateEnd Date Erik Smith MD [address] [place] [address] [facility] - [facility]04/16/23 Erik Smith MD [address] [place] [address] PCP - ACO Reach09/23/23 Michelle Cuenca PA [address] [place] [address] Physician AssistantNeurology12/17/24Team MemberRelationshipSpecialtyStart DateEnd Date Erik Smith MD [address] [place] [address] [facility]04/16/23 Erik Smith MD [address] [place] [address] PCP - ACO Reach09/23/23 Michelle Cuenca PA [address] [place] [address] Physician AssistantNeurology12/17/24Team MemberRelationshipSpecialtyStart DateEnd Date Erik Smith MD [address] [place] [address] PCP - [facility]04/16/23 Erik Smith MD [address] [place] [address] PCP - ACO Reach09/23/23 Michelle Cuenca PA [address] [place] [address] Physician AssistantNeurology12/17/24Team MemberRelationshipSpecialtyStart DateEnd Date Erik Smith MD [address] [place] [address] PCP - GeneralFamily Medicine04/16/23 Erik Smith MD [address] [place] [address] PCP - ACO Reach09/23/23Sunday, MIKEY Dasilva [address] [place] [address] Licensed Practical NurseFamily Medicine Coco Paula, RN [address] [place] [address] Licensed Practical NurseFamily Medicine Lulú Pringle LPN [address] [place] [address] Michelle Cuenca PA [address] [place] [address] Physician AssistantNeurology12/17/24Team MemberRelationshipSpecialtyStart DateEnd Date Erik Smith MD [address] [place] [address] PCP - GeneralFamily Medicine04/16/23 Erik Smith MD [address] [place] [address] PCP - ACO Reach09/23/23SundayVidya LPN [address] [place] [address] Licensed Practical NurseFamily Medicine/Sunday, MIKEY Dasilva [address] [place] [address] Licensed Practical NurseFamily Medicine Coco Paula, RN [address] [place], [place] [address] Licensed Practical NurseFamily Medicine/ Lulú Pringle LPN [address] [place] [address] Michelle Cuenca PA [address] [place] [address] Physician AssistantNeurology12/17/24Team MemberRelationshipSpecialtyStart DateEnd Date Erik Smith MD [address] [place] [address] PCP - GeneralFamily Medicine04/16/23 Erik Smith MD [address] [place] [address] PCP - ACO Reach09/23/23 Michelle Cuenca PA [address] [place] [address] Physician AssistantNeurology12/17/24Team MemberRelationshipSpecialtyStart DateEnd Date Erik Smith MD [address] [place] [address] PCP - GeneralFamily Medicine04/16/23 Erik Smith MD [address] [place] [address] PCP - ACO Reach09/23/23 Michelle Cuenca PA [address] [facility] 110 [place] [address] Physician AssistantNeurology12/17/24 Reason for Visit (unrecogniz ed [...] BE BASED ON THE PRIMARY CLINICAL RECORDS. [email or web address] provides no warranty or guarantee of the accuracy or completeness of information in this document.
== END 2025-08-28 16:30 | disposition home or self-care (01) ==
PROVIDERS: Emergency Provider Emergency Medicine
DX: M54.12 Radiculopathy, cervical region (principal); M54.16 Radiculopathy, lumbar region; F17.210 Nicotine dependence, cigarettes, uncomplicated; Z98.890 Other specified postprocedural states
CPT/HCPCS: 99281

== ENCOUNTER 2025-09-09 09:20 | Outpatient (OUT) | payer MEDICARE, MEDICAID, SELFPAY ==
--- OUTSIDE RECORDS SUMMARY | 2025-06-08 08:30 | XMS_ITS ---
Author Organization [facility] es Address [address] [place] [address] Care Team Providers Care Golf Course Designer Name Role Phone Tresa Middleton Primary Care Provider [phone] REASON FOR VISIT BITE REGISTRATION Encounters Encounter Location Date Provider Diagnosis [address] [place] [address] [place] [address] 06/08/2025 Tresa Ramsay Plan Of Treatment No Information Progress Notes * KEITH WASHINGTON LDOB:1970 (55 yo F)Acc No.[id number]:06/08/2025 Dental Appointment Patient: Paulette KEITH MCKEON :?TRESA RAMSAY DDSDOB:1970???Age: 55 Y???Sex:FemaleDate:06/08/2025Phone:[phone]:[address] [place], [place] [id number] Subjective: * Chief Complaints: * B ITE REGISTRATION * Electronic signature of Tresa Ramsay DDS on 09/09/2025 at 09:23 AM ESTSign off status: Pending * Provider: Hector RAMSAY DDS Date: 0 06/08/2025 Generated for Printing/Faxing/eTransmitting on:?09/09/2025 09:23 AM EST
--- OUTSIDE RECORDS SUMMARY | 2025-06-16 03:00 | XMS_ITS ---
Author Organization [facility] es Address [address] [place] [address] Care Team Providers Care Hole Puncher Strap Name Role Phone Tresa Middleton Primary Care Provider Encounters Encounter Location Date Provider Diagnosis [place] [address] [place] [address] 06/16/2025 Tresa Ramsay Plan Of Treatment No Information Progress Notes * KEITH WASHINGTON LDOB:1970 (55 yo F)Acc No.[id number]:06/16/2025 Dental Appointment Patient: KEITH AMAYA :?TRESA RAMSAY DDSDOB:1970???Age: 55 Y???Sex:FemaleDate:06/16/2025Phone:[phone]:[address] [place], [place] [id number] * Electronic signature of Tresa Ramsay DDS on 09/09/2025 at 09:23 AM ESTSign off status: Pending * Provider: Hector RAMSAY DDS Date: 0 06/16/2025 Generated for Printing/Faxing/eTransmitting on:?09/09/2025 09:23 AM EST
--- OUTSIDE RECORDS SUMMARY | 2025-09-02 13:30 | XMS_ITS | Encounter Summary ---
Author Organization [facility] Address [address] [facility] [place] [address] Care Team Providers Care Pcmh Specialist Name Role Phone Alma Rosa Lozada MD Primary Care Provider [phone] Alma Rosa Lozada MD Unavailable Michelle Cuenca Unavailable Reason for Referral * Rehabilitation - Outpatient (Routine) - AuthorizedSpecialtyDiagnoses / ProceduresReferred By ContactReferred To ContactPhysical Therapy Diagnoses Lumbosacral radiculopathy Cervical radiculopathy Procedures NM OFFICE/OUTPATIENT NEW HIGH MDM 60 MINUTES India Ifnante, JODIE [address] [facility] [address] [place] [address] Phone: tel: fax: Lacey Azar PT Referral IDStatusReasonStart DateExpiration DateVisits RequestedVisits [id number] Specialty Services Required Encounter Details DateTypeDepartmentCare Team (Latest Contact Info)Lfgoocyiypc83/10/2025 1:30 PM ESTOffice Visit [facility] [place] [facility] [address] [facility] [address] [place] [phone] India Infante SAXOPHONE TEACHER [address] [place] [address] Chronic bronchitis, unspecified chronic bronchitis type (HCC) (Primary Dx); Acute cough; Lumbosacral radiculopathy; Cervical radiculopathy Social History Tobacco UseTypesPacks/DayYears UsedDateSmoking Tobacco: Every [...] and heating?Not very hard04/03/2024HQ-2AnswerDate RecordedPatient Health Questionnaire-2 Btyjg26211/03/2024[facility] [place] of Occupational Health - Occupational Stress QuestionnaireAnswerDate RecordedDo you feel stress - tense, restless, nervous, or anxious, or unable to sleep at night because your mind is troubled all the time - these days?Only a ucdado6204/03/2024Hunger Vital SignAnswerDate RecordedWithin the past 12 months, [...] ValueDate RecordedSex Assigned at BirthNot on fileLegal ZkrQtqujm13/15/2023 6:41 PM EDTGender IdentityNot on fileSexual OrientationNot on filedocumented as of this encounter Last Filed Vital Signs Vital SignReadingTime TakenCommentsBlood Jwtykhak711/7609/02/2025 1:29 PM EST Bqhkk821909/02/2025 1:29 PM ATFMclshwtwfrc62.1 ??C (98.7 ??F)09/02/2025 1:29 PM ESTRespiratory Obce071311/03/2024 1:29 PM ESTOxygen Euwrawmxuo53%09/02/2025 1:29 PM ESTInhaled Oxygen Concentration--Zfgxii235 kg (236 lb 3.2 oz)09/02/2025 1:29 PM XFPXhodyy330.7 cm (5' 7.2 )09/02/2025 1:29 PM ESTBody Mass Index36.77 09/02/2025 1:29 PM ESTdocumented in this encounter Functional Status * Over the past 2 weeks, how often have you been bothered by any of the following problems?QuestionAnswerDate of AssessmentAuthorLittle interest or pleasure in doing thingsNot at all09/02/2025 1:13 PM Nu Walker LPN Feeling down, depressed, or hopelessNot at all09/02/2025 1:13 PM Nu Walker LPNPatient Health Questionnaire-2 Hdhzj70811/03/2024 1:13 PM Nu Walker LPN documented as of this encounter Plan of Treatment NameTypePriorityAssociated DiagnosesOrder ScheduleAmbulatory referral to Physical TherapyOutpatient ReferralRoutine Lumbosacral radiculopathy Cervical radiculopathy Expected: 09/02/2025 (Approximate), Expires: 03/03/2026documented as of this encounter Visit Diagnoses Diagnosis Chronic bronchitis, unspecified chronic bronchitis type (HCC)- Primary Acute cough Lumbosacral radiculopathy Thoracic or lumbosacral neuritis or radiculitis, unspecified Cervical radiculopathy Brachial neuritis or radiculitis nos documented in this encounter Additional Health Concerns AssessmentNoted TimePHQ-9 Depression Total Score: 11:00 AM EST documented as of this encounter Care Teams Team MemberRelationshipSpecialtyStart DateEnd Date Alma Rosa Lozada MD [address] [facility] [address] [place] [address] [facility] - [facility]04/16/23 Alma Rosa Lozada MD [address] [facility] [address] [place] [address] PCP - ACO [facility]09/23/23 Michelle Cuenca PA Physician AssistantNeurology12/17/24documented as of this encounter
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
--- OUTSIDE RECORDS SUMMARY | 2025-09-09 09:23 | XMS_ITS | Encounter Summary ---
Author Organization [facility] Address [address] [place] [address] Care Team Providers Care Canopy Stringer Name Role Phone Alma Rosa Lozada MD Primary Care Provider [phone] Alma Rosa Lozada MD Unavailable Michelle Cuenca Unavailable Encounter Details DateTypeDepartmentCare Team (Latest Contact Info)Kzyofsckkmw34/11/2025bstract [facility] [address] [place] [address] Alma Rosa Lozada MD [address] [facility] [address] [place], [place] [id number] Social History Tobacco UseTypesPacks/DayYears UsedDateSmoking Tobacco: Every [...] and heating?Not very hard04/03/2024HQ-2AnswerDate RecordedPatient Health Questionnaire-2 Hhqtw09311/03/2024[facility] [place] of Occup[facility] - Occupational Stress QuestionnaireAnswerDate RecordedDo you feel stress - tense, restless, nervous, or anxious, or unable to sleep at night because your mind is troubled all the time - these days?Only a lpvmgb3204/03/2024Hunger Vital SignAnswerDate RecordedWithin the past 12 months, [...] ValueDate RecordedSex Assigned at BirthNot on fileLegal JycGxoirh09/15/2023 6:41 PM EDTGender IdentityNot on fileSexual OrientationNot on filedocumented as of this encounter Plan of Treatment Not on file documented as of this encounter Visit Diagnoses Not on filedocumented in this encounter Additional Health Concerns AssessmentNoted TimePHQ-9 Depression Total Score: 11:00 AM EST documented as of this encounter Care Teams Team MemberRelationshipSpecialtyStart DateEnd Date Alma Rosa Lozada MD [address] [facility] [address] [place] [address] [facility] - [facility]23 Alma Rosa Lozada MD [address] [place] [address] PCP - ACO [facility]09/23/23 Michelle Cuenca PA Physician AssistantNeurology12/17/24documented as of this encounter
--- OUTSIDE RECORDS SUMMARY | 2025-09-09 09:23 | XMS_ITS | Patient Health Record ---
Author Organization [facility] Address [address] [place] [address] Care Team Providers Care Accounting Teacher Name Role Phone Audrey Middleton Primary Care Provider Reason For Referral No Information Medications Medication SIG (Take, Route, Frequency, Duration) Notes Start Date End Date Status Nystatin 598601 units/g topical ointment applied topically as directed four times a day; Duration: fourteen days 04/23/2023ctive Encounters Encounter Location Date Provider Diagnosis [address] [address] 06/08/2025 Aud[facility] [place] [address]/Fiorella Jen [facility] [place] [address]/[facility] [address] [place] [address] 03/19/2025Fiorella Jen CastilloDental caries on pit and fissure surface penetrating into dentin K02.52 and Encounter for dental examination and cleaning with abnormal findings Z01.21[facility] [place] [address] 05/26/2025[facility] [place] [address]/Fiorella Jen Dooley Assessments Encounter Date Diagnosis (ICD Code) Assessment Notes Treatment Notes Treatment Clinical Notes Section Notes 03/19/2025 Dental caries on pit and fissure surface penetrating into dentin (ICD-10 - K02.52) 03/19/2025Encounter for dental examination and cleaning with abnormal findings (ICD-10 - Z01.21) Plan Of Treatment No Information Insurance Providers Payer Name Payer Address Payer Phone Subscriber Number Group Number Insured Name Patient Relationship to Insured Coverage Start Date Coverage End Date MEDICARE CGS [address] [facility] [place]NNIE SHORE [phone] [id number] Lilian [place] - patient is the [id number] 2022ENTAL MEDICAID [place] [place] [id number], GAILSelf - patient is the [id number] 2022
--- OUTSIDE RECORDS SUMMARY | 2025-09-09 09:23 | XMS_ITS | Clinical Summary ---
Author Organization [facility] Address [facility] [address] [place] [address] Care Team Providers Care Weight Inspector Name Role Phone Unavailable Primary Care Provider Unavailabl e Allergies Active AllergyReactionsCriticalityNoted DateCommentsAzithromycinRash,Other (See Comments)Low11/22/20158082EvthuqihudQlylMjc51/23/2023orticosteroids (Glucocorticoids)Other (See Comments)11/22/2015MorphineOther (See Comments), Bihqukix60/29/2016MoxifloxacinRash,Other (See Comments)Low11/22/2015 NitrofurantoinOther (See Comments)11/22/2015Nitrofurantoin Monohyd/M-CrystRash, Other [...] Active Problems ProblemNoted DateDiagnosed DateSerous cystadenoma of mwtqbpag03/10/2024 Family History Medical HistoryRelationNameCommentsCancerMaternal AuntbreastColon cancerMaternal GrandmotherRelationNameStatusCommentsFatherDeceasedMaternal AuntDeceasedMaternal GrandmotherDeceasedMotherAlive Social History Tobacco UseTypesPacks/DayYears UsedDateSmoking Tobacco: Every DayCigarettes Smokeless Tobacco: Never Tobacco Cessation:Ready to Q uit: Not Asked; Counseling Given: Not Answered Alcohol UseStandard Drinks/WeekCommentsNever0 (1 standard drink = 0.6 oz pure alcohol)ChildcareAnswerDate SikcnbppXgtcanuhfNjfvsnj43/12/2019EmploymentAnswer Date NvmkfmjbAclmbyuccsZdjqyxx15/12/2019Hunger ScreeningAnswerDate Recorded Within the past 12 months we worried whether our food would run out before we got money to buy more.Never True06/03/2024Within the past 12 months the food we bought just didn't last and we didn't have money to get more.Never True 06/03/2024CommentsUnknownSex and Gender InformationValueDate RecordedSex Assigned at BirthNot on fileLegal SzdGfmftt69/06/2015 11:44 AM EDTGender IdentityNot on fileSexual OrientationNot on file Last Filed Vital Signs Vital SignReadingTime TakenCommentsBlood Ptnuovmq723/7609 1:34 PM EDT Vtahl863106/03/2024 1:34 PM EDTTemperature--Respiratory Rate--Oxygen Saturation-- Inhaled Oxygen Concentration--Yokatv431.1 kg (231 lb 12.8 oz)06/03/2024 1:34 PM UQJUsinlp752.6 cm (5' 6 )06/03/2024 1:34 PM EDTBody Mass Index37.4109 1:34 PM EDT Plan of Treatment Health MaintenanceDue DateLast DoneCommentsDepression Tgxhaauiy29/29/1980 DTaP,Tdap and Td Vaccines (1 - Tdap)1987Zoster (Shingles) Vaccine (2 of 2) Pap Smear//OVID-19 Vaccine (3 - 2024-26 season)/07/2021, 12/06/2020Influenza Jpucbvq4205/25/2025dult BMI Ojfiusxmc20/06/2024Tobacco Owwsvhebc15 Medical Devices Not on file Insurance
--- OUTSIDE RECORDS SUMMARY | 2025-09-09 09:23 | XMS_ITS | Encounter Summary ---
Author Organization [facility] Address [address] [place] [place] [address] Care Team Providers Care Tubular Stock Glass Bulb Machine Former Name Role Phone Alma Rosa Lozada MD Primary Care Provider [phone] Alma Rosa Lozada MD Unavailable Michelle Cuenca Unavailable Encounter Details DateTypeDepartmentCare Team (Latest Contact Info)Ljswyqxktya96/10/2025Travel Social History Tobacco UseTypesPacks/DayYears UsedDateSmoking Tobacco: Every [...] and heating?Not very hard04/03/2024HQ-2AnswerDate RecordedPatient Health Questionnaire-2 Vkbln49111/03/2024[facility] [place] of Occupational Health - Occupational Stress QuestionnaireAnswerDate RecordedDo you feel stress - tense, restless, nervous, or anxious, or unable to sleep at night because your mind is troubled all the time - these days?Only a ngnhyu6804/03/2024Hunger Vital SignAnswerDate RecordedWithin the past 12 months, [...] ValueDate RecordedSex Assigned at BirthNot on fileLegal NkrJzaixo85/15/2023 6:41 PM EDTGender IdentityNot on fileSexual OrientationNot on filedocumented as of this encounter Functional Status * Over the past 2 weeks, how often have you been bothered by any of the following problems?QuestionAnswerDate of AssessmentAuthorLittle interest or pleasure in doing thingsNot at all09/02/2025 1:13 PM Mitchell Walkera, INTERNATIONAL SPECIALIST Feeling down, depressed, or hopelessNot at all09/02/2025 1:13 PM Mitchell Walkera LPNPatient Health Questionnaire-2 Vftdh62311/03/2024 1:13 PM Mitchell Walkera INTERNATIONAL SPECIALIST documented as of this encounter Plan of Treatment Not on file documented as of this encounter Visit Diagnoses Not on filedocumented in this encounter Additional Health Concerns AssessmentNoted TimePHQ-9 Depression Total Score: 11:00 AM EST documented as of this encounter Care Teams Team MemberRelationshipSpecialtyStart DateEnd Date Alma Rosa Lozada MD [address] [facility] [address] [place] [address] PCP - GeneralFamily Medicine04/16/23 Alma Rosa Lozaad MD [address] [facility] [address] [place] [address] PCP - ACO [place]09/23/23 Michelle Cuenca PA Physician AssistantNeurology12/17/24documented as of this encounter
--- OUTSIDE RECORDS SUMMARY | 2025-09-09 09:23 | XMS_ITS | Encounter Summary ---
Author Organization [facility] Address [address] [place] [address] Care Team Providers Care Demand Planning Manager Name Role Phone Alma Rosa Lozada MD Primary Care Provider [phone] Alma Rosa Lozada MD Unavailable Michelle Cuenca Unavailable Encounter Details DateTypeDepartmentCare Team (Latest Contact Info)Nkxqgbvzhng72/10/2025amboo flowsheet [facility] [address] [place] [address] India Infante, PIPE CLEANER [address] [facility] [address] [place], [place] [address] Social History Tobacco UseTypesPacks/DayYears UsedDateSmoking Tobacco: Every [...] and heating?Not very hard04/03/2024HQ-2AnswerDate RecordedPatient Health Questionnaire-2 Biani17511/03/2024[facility] [place] of Occupational Health - Occupational Stress QuestionnaireAnswerDate RecordedDo you feel stress - tense, restless, nervous, or anxious, or unable to sleep at night because your mind is troubled all the time - these days?Only a gqvmqj1004/03/2024Hunger Vital SignAnswerDate RecordedWithin the past 12 months, [...] ValueDate RecordedSex Assigned at BirthNot on fileLegal DvyYxrzdt39/15/2023 6:41 PM EDTGender IdentityNot on fileSexual OrientationNot on filedocumented as of this encounter Plan of Treatment Not on file documented as of this encounter Visit Diagnoses Not on filedocumented in this encounter Additional Health Concerns AssessmentNoted TimePHQ-9 Depression Total Score: 11:00 AM EST documented as of this encounter Care Teams Team MemberRelationshipSpecialtyStart DateEnd Date Alma Rosa Lozada MD [address] [facility] [address] [place] [address] [facility]04/16/23 Alma Rosa Lozada MD [address] [place] [address] PCP - [facility]CO [facility]09/23/23 Michelle Cuenca PA Physician AssistantNeurology12/17/24documented as of this encounter
--- OUTSIDE RECORDS SUMMARY | 2025-09-09 09:23 | XMS_ITS | Clinical Summary ---
Author Organization [facility] Address [address] [place], [place] [id number] Care Team Providers Care Lens And Frames Prescription Clerk Name Role Phone Alma Rosa Lozada MD Primary Care Provider [phone] Horacio Camara MD Unavailable [phone] Allergies Active AllergyReactionsCriticalityNoted DateCommentsMoxifloxacin HclUnknown 11/22/2015Nitrofurantoin Monohyd/M-WwzdvNpsfbms68/29/2015MorphineUnknown 11/22/20151452RsnggnjoiwwnPxoqawj91/29/7211BagcufqwqmfulyKjyiqot22/29/2016 Corticosteroids (Glucocorticoids)Solgkrw8711/22/20152144MtloiurpcbjuAqwdvbw16/29/2016 Medications MedicationSigDispense QuantityRefillsLast FilledStart DateEnd DateStatus docusate [...] DateDiagnosed DateModerate episode of recurrent major depressive jmyfzytt47/29/6066Wjwuietaf67/29/2016Normal coronary whbvhubz93/29/2016Non morbid obesity due to excess jbdwvylz15/29/2016Antidepressants causing adverse effect in therapeutic use11/22/2015 Family History Medical HistoryRelationCommentsblood disorder [Other]FatherRelationStatus CommentsFatherDeceasedMotherAlive Social History Tobacco UseTypesPacks/DayYears UsedDateSmoking Tobacco: Every DayCigarettes0.515 Smokeless Tobacco: NeverAlcohol UseStandard Drinks/WeekCommentsNo0 (1 standard drink = 0.6 oz pure alcohol)CommentsUnknownSex and Gender Information ValueDate RecordedSex Assigned at BirthNot on fileLegal HscEtyjbr89/02/2012 7:29 AM ESTGender IdentityNot on fileSexual OrientationNot on fileOccupationIndustry Job Start DateJob End DatedisabilityNot on fileNot on fileNot on file Last Filed Vital Signs Vital SignReadingTime TakenCommentsBlood Zogovvzn483/8311/22/2015 10:16 AM EST large ualuYafqx2350/29/2016 10:16 AM ESTTemperature--Respiratory Rate16 11/22/2015 10:16 AM ESTOxygen Jvmdlylmuf52%11/22/2015 10:16 AM ESTInhaled Oxygen Concentration--Eqjobo545.6 kg (268 lb)11/22/2015 10:16 AM DEIExatmh414.6 cm (5' 6 )11/22/2015 10:16 AM ESTBody Mass Index43.26011/22/2015 10:16 AM EST Plan of Treatment Health MaintenanceDue DateLast DoneCommentsAnxiety Qaikpwklp33/29/1986Depression Nrydxwjls15/29/1986HIV Oghsepmnu46/29/1986Hepatitis C Dfcjdicle53/29/1986 DTaP,Tdap,Td Vaccine (1 - Tdap)1987Hepatitis B Vaccine (1 of 3 - 19+ 3- dose series)1987Cervical Cancer Xymgrocne63/29/1989Mammogram Screening 2008CT Tjvwycjildfs13/29/2013Cologuard (FIT-DNA)2013Colonoscopy 2013Colorectal Cancer Ivgfsvaix59/29/2013Diabetes Bdjjfntkl70/29/2013Fecal Occult Blood2013Lipid Byfxxgfdx43/29/2579Xjsldgbocpqfb31/29/2013 Pneumococcal Vaccine: 50+ (1 of 1 - PCV)2018Shingrix Vaccine (1 of 2) 2018Covid-19 Vaccine (1 - 2024- season)2025Influenza Vaccine (#1) 2025 Insurance Care Teams Team MemberRelationshipSpecialtyStart DateEnd Date Alma Rosa Lozada MD [address] [facility] [address] [place] [address] PCP - GeneralCardiology02/01/05 Horacio Camara MD [address] [facility] [address] [place] [address] Primary Staff PhysicianCardiology12/10/18
--- OUTSIDE RECORDS SUMMARY | 2025-09-09 09:24 | XMS_ITS | Encounter Summary ---
Author Organization [facility] Address [address] [place] [address] Care Team Providers Care Oncology Navigator Name Role Phone Alma Rosa Lozada MD Primary Care Provider [phone] Alma Rosa Lozada MD Unavailable Michelle Cuenca Unavailable Encounter Details DateTypeDepartmentCare Team (Latest Contact Info)Geeesvbnjol66/08/2025Patient Outreach [facility] [address] [place] [id number] Lulú Pringle LPN [address] [facility] [address] [place] [address] Social History Tobacco UseTypesPacks/DayYears UsedDateSmoking Tobacco: Every [...] and heating?Not very hard04/03/2024HQ-2AnswerDate RecordedPatient Health Questionnaire-2 Mpxio933[facility] [place] [facility] - Occupational Stress QuestionnaireAnswerDate RecordedDo you feel stress - tense, restless, nervous, or anxious, or unable to sleep at night because your mind is troubled all the time - these days?Only a qafbmq5404/03/2024Hunger Vital SignAnswerDate RecordedWithin the past 12 months, [...] ValueDate RecordedSex Assigned at BirthNot on fileLegal WagCvzewy76/15/2023 6:41 PM EDTGender IdentityNot on fileSexual OrientationNot on filedocumented as of this encounter Progress Notes * Lulú Pringle LPN - 08/31/2025 4:13 PM EST Images from the original note were not included. Records in chart. MONTY complete. Medications not reconciled with pt. Pt states no med changes, declines to go through medications at this time. Pt states still having numbness/tingling. Hopes to get order for MRI at appt scheduled 09/02. States was suggested one by Neurologist awhile back, but at the time pt thought it would work itself out. Pt now can't get back in to see a Neurologist for a couple months. I ask if pt would like CCM services again and pt declines. Flowsheet Row Patient Outreach from 08/31/2025 in [facility] with Lulú Prinlge LPN Hospital Information ED, Hospital or Nursing Home Facility Discharge? ED Patient has been contacted within 2 days of being seen in the ED Yes Diagnosis Cervical radiculopathy, Lumbar radiculopathy Discharge Date 08/28/25 Discharged To: Home Setting Discharge Hospital [facility] Engagement Call Start Time 1612 Admission Date 08/28/25 Medications Discharge medications reviewed and reconciled from hospital? -- [did not review with pt. States no medication changes] Is the patient having any side effects they believe may be caused by any medication additions or changes? No Does the patient have all medications ordered at discharge? Yes Is the patient taking all medications as directed (includes completed medication regime)? Yes Medication Comments No medication changes per pt and discharge summary Appointments Does the patient have a primary care provider? Yes [09/02] Does the patient have any upcoming specialty appointments? No Self Management Does patient have home health? no Patient Teaching Does the patient have access to their discharge instructions? Yes What is the patient's perception of their health status since discharge? Same Is the patient/caregiver able to teach back the hierarchy of who to call/visit for symptoms/problems? PCP, Specialist, Home Health nurse, Urgent Care, ED, 911 Yes Wrap Up Wrap Up Additional Comments presented d/t a few months of right lower extremity heaviness, numbnessthat started at her medial thigh down to her knee and then progressed recently to the top of the foot that she describes as mrfi-hke-qjqfjyw. She has also been feeling some lightening sensations in her right foot. Pt declined suggested work up of u/s lt lower extremity, blood tests, CXR, EKG. Call End Time 1617 documented in this encounter Plan of Treatment Not on file documented as of this encounter Visit Diagnoses Diagnosis Cervical radiculopathy- Primary Brachial neuritis or radiculitis nos Lumbar radiculopathy Thoracic or lumbosacral neuritis or radiculitis, unspecified Type 2 diabetes mellitus with stage 2 chronic kidney disease, without long-term current use of insulin (HCC) documented in this encounter Additional Health Concerns AssessmentNoted TimePHQ-9 Depression Total Score: 11:00 AM EST documented as of this encounter Care Teams Team MemberRelationshipSpecialtyStart DateEnd Date Alma Rosa Lozada MD [address] [facility] [address] [place] [address] PCP - GeneralFamily Medicine04/16/23 Alma Rosa Lozada MD [address] [facility] [address] [place] [address] PCP - ACO Reach09/23/23 Michelle Cuenca PA Physician AssistantNeurology12/17/24documented as of this encounter
--- OUTSIDE RECORDS SUMMARY | 2025-09-09 09:24 | XMS_ITS | Clinical Summary ---
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 LABSFinal Result Performing OrganizationAddressCity/State/ZIP CodePhone Number [...] DateEnd Date Alma Rosa Lozada MD [address] [facility] [place] [address] [place] [address] PCP - GeneralFamily Medicine04/16/23 Alma Rosa Lozada MD [address] [place] [address] [place] [address] PCP - ACO [place]09/23/23 Michelle Cuenca PA Physician AssistantNeurology12/17/24
--- OUTSIDE RECORDS SUMMARY | 2025-09-09 09:24 | XMS_ITS | Encounter Summary ---
Author Organization [facility] Address [address] [facility] [place] [address] Care Team Providers Care Track Manager Name Role Phone Alma Rosa Lozada MD Primary Care Provider [phone] Alma Rosa Lozada MD Unavailable Michelle Cuenca Unavailable Encounter Details DateTypeDepartmentCare Team (Latest Contact Info)Ykogovfltdy98/03/2025Orders Only [facility] [address] [place] [address] [place] [address] Rebecca Barrera MA Social History Tobacco UseTypesPacks/DayYears UsedDateSmoking Tobacco: Every [...] and heating?Not very hard04/03/2024HQ-2AnswerDate RecordedPatient Health Questionnaire-2 Mqreh048[facility] [place] [facility] - Occupational Stress QuestionnaireAnswerDate RecordedDo you feel stress - tense, restless, nervous, or anxious, or unable to sleep at night because your mind is troubled all the time - these days?Only a dowlcs1604/03/2024Hunger Vital SignAnswerDate RecordedWithin the past 12 months, [...] ValueDate RecordedSex Assigned at BirthNot on fileLegal PnrRgfctp79/15/2023 6:41 PM EDTGender IdentityNot on fileSexual OrientationNot on filedocumented as of this encounter Plan of Treatment Not on file documented as of this encounter Procedures Procedure NamePriorityDate/TimeAssociated DiagnosisCommentsHPV/PAP COTEST, ZZTDNWNMZsbsywh11/26/2025 12:00 AM ESTdocumented in this encounter Results * HPV/PAP COTEST, EXTERNAL (08/19/2025 12:00 AM EST) Narrative Authorizing ProviderResult TypeResult StatusAmy Farmington [facility] CYTOLOG[facility] ORDERABLES Final ResultPerforming OrganizationAddressCity/State/ZIP CodePhone Number EXTERNAL LAB documented in this encounter Visit Diagnoses Not on filedocumented in this encounter Additional Health Concerns AssessmentNoted TimePHQ-9 Depression Total Score: 11:00 AM EST documented as of this encounter Care Teams Team MemberRelationshipSpecialtyStart DateEnd Date Alma Rosa Lozada MD [address] [facility] [address] [place] [address] PCP - GeneralFamily Medicine04/16/23 Alma Rosa Lozada MD [address] [address] PCP - ACO [facility]09/23/23 Michelle Cuenca PA Physician AssistantNeurology12/17/24documented as of this encounter
--- OUTSIDE RECORDS SUMMARY | 2025-09-09 09:24 | XMS_ITS | Clinical Summary ---
Author Organization [facility] Address [address] [facility], [address] [place] [address] Care Team Providers Care Heating Worker Name Role Phone Unavailable Primary Care Provider Unavailabl e Social History Tobacco UseTypesPacks/DayYears UsedDateSmoking Tobacco: Never Assessed CommentsUnknownSex and Gender InformationValueDate RecordedSex Assigned at Not on fileLegal EtmApmxkl21/18/2019 8:37 AM ESTGender IdentityNot on fileSexual OrientationNot on file Plan of Treatment Not on file Insurance
--- OUTSIDE RECORDS SUMMARY | 2025-09-09 09:24 | XMS_ITS | Encounter Summary ---
Author Organization [facility] Address [address] [place] [address] Care Team Providers Care Diabetes Territory Manager Name Role Phone Alma Rosa Lozada MD Primary Care Provider [phone] Alma Rosa Lozada MD Unavailable Michelle Cuenca Unavailable Encounter Details DateTypeDepartmentCare Team (Latest Contact Info)Rdfgaswmefa02/08/2025bstract [facility] [address] [place] [address] Lulú Pringle LPN [address] [facility] [address] [place] [address] Social History Tobacco UseTypesPacks/DayYears UsedDateSmoking [...] and heating?Not very hard04/03/2024HQ-2AnswerDate RecordedPatient Health Questionnaire-2 Wrmlt63511/03/2024[facility] [place] of Occupational [facility] - Occupational Stress QuestionnaireAnswerDate RecordedDo you feel stress - tense, restless, nervous, or anxious, or unable to sleep at night because your mind is troubled all the time - these days?Only a nmjncb5404/03/2024Hunger Vital SignAnswerDate RecordedWithin the past 12 months, [...] ValueDate RecordedSex Assigned at BirthNot on fileLegal OcfYdkddd21/15/2023 6:41 PM EDTGender IdentityNot on fileSexual OrientationNot on filedocumented as of this encounter Functional Status * Over the past 2 weeks, how often have you been bothered by any of the following problems?QuestionAnswerDate of AssessmentAuthorLittle interest or pleasure in doing thingsNot at all09/02/2025 1:13 PM Nu Walker LPN Feeling down, depressed, or hopelessNot at all09/02/2025 1:13 PM Nu Walker LPNPatient Health Questionnaire-2 Bklhj39311/03/2024 1:13 PM Nu Walker LPN documented as of this encounter Plan of Treatment Not on file documented as of this encounter Visit Diagnoses Not on filedocumented in this encounter Additional Health Concerns AssessmentNoted TimePHQ-9 Depression Total Score: 11:00 AM EST documented as of this encounter Care Teams Team MemberRelationshipSpecialtyStart DateEnd Date Alma Rosa Lozada MD [address] [facility] [address] [place] [address] [facility] - [facility] Alma Rosa Lozada MD [address] [facility] [address] [place] [address] PCP - ACO [facility]09/23/23 Michelle Cuenca PA Physician AssistantNeurology12/17/24documented as of this encounter
--- OUTSIDE RECORDS SUMMARY | 2025-09-09 09:24 | XMS_ITS ---
Author Organization [facility] Address [address] [facility] [place] [address] Care Team Providers Care Top Ironer Name Role Phone Alma Rosa Lozada MD Primary Care Provider [phone] Alma Rosa Lozada MD Unavailable Michelle Cuenca Unavailable Emergency Department Transitional Care Management (TCM) Status:Closed (Closed) Start date:08/28/2025 Enrollment date:08/31/2025 Enrollment reason:Identified using discharge data End date:08/31/2025 Close reason:Assistance not needed Overview Discharged from [facility] ER on 08/28. Please contact within 2 days of discharge for ER MONTY and schedule a follow-up appointment if needed. Continued Care and Services Coordination
--- NOTE | 2025-09-09 09:27 | MR_ITS ---
The [address] [address] Patient Name: KEITH WASHINGTON MRN: [id number] date: 1970 Sex: F Assigned Patient Location: MRI Current Patient Location: Accession/Order Number: [id number] Exam Date: 09/09/2025 09:45 Report Date: 09/10/2025 00:18 At the request of: VERONIKA MALCOLM NP Procedure: MR head/brain wo con MR head/brain wo con 09/09/2025 10:44 AM SIGN AND SYMPTOMS: ^Paresthesia of upper and lower extremities PROTOCOL: Multiplanar multisequence MR images of the brain without IV contrast COMPARISON: None. FINDINGS: Extra axial spaces: There is mild age-related cortical atrophy. Hemorrhage: None. Ventricular system: Within normal limits. Basal cisterns: Within normal limits and not effaced. Cerebral parenchyma: Normal in signal. Midline shift: None.. Cerebellum: Within normal limits. Brainstem: Within normal limits. OTHER: Calvarium: Normal marrow signal. Vascular system: Satisfactory flow voids within the anterior and posterior circulation. Visualized Paranasal sinuses: Postoperative changes are noted consistent with previous right-sided antrectomy. Visualized Orbits: Within normal limits. Visualized upper cervical spine: Within normal limits. Sella and skull base: Within normal limits. MR/MR head/brain wo con IMPRESSION: No acute intracranial pathology. Postoperative changes are noted consistent with previous right-sided antrectomy. Impression dictated by: aJvi Leblanc M.D. 09/10/2025 12:18 AM Dictation Location: [place] [address] Electronically authenticated by: [id number] Y Date: 09/10/2025 00:18
== END 2025-09-09 09:21 | disposition home or self-care (01) ==
LOC: MRI 09:20
PROVIDERS: Visit Provider Nurse Practitioner Family
DX: R20.2 Paresthesia of skin (principal)
CPT/HCPCS: 70551

== ENCOUNTER 2025-09-12 13:24 | Emergency (ER) | payer MEDICARE, MEDICAID, SELFPAY ==
--- OUTSIDE RECORDS SUMMARY | 2022-06-06 06:30 | XMS_ITS | Continuity of Care Document ---
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 And Repairer Name Role Phone Ronald Morris DDS Unavailable Unavail able Allergies, Adverse Reactions, Alerts Substance Reaction Status Criticality morphine Active No Information CEPHALEXIN MONOHYDRATE Active No In formation Medications Medication Instructions Dosage Effective Dates (start - stop) Status Comments Klor-Con 20 mEq oral packet take 1 packet by oral route 4 times every day dissolved in 4-6 ounces of cold water or juice 20 MEQ - Active Synthroid 75 mcg tablet take 1 tablet by oral route every day 75 MCG - Active Jardiance 10 mg tablet take 1 tablet by oral route every day in the morning 10 MG - Active Januvia 100 mg tablet take 1 tablet by oral route every day 100 MG - Active Lexapro 20 mg tablet take 1 tablet by oral route every day 20 MG - Active atenolol 50 mg tablet take 1 tablet by oral route every day 50 MG - Active Percocet 5 mg-325 mg tablet take 1 tablet by oral route every 6 hours as needed 1.00 tablet - Active Klonopin 1 mg tablet take 1 tablet by oral route 3 times every day 1 MG - Active Procedures Procedure Date Nutrit Couns For Control Of [place] Dis May Limited Oral Eval Advance Directives Directive Yes / No Effective Date File Name No Information Encounters Encounter Description Practice Location Reason(s) For Visit Diagnoses Date Provider Providers Copied on Encounter [facility], [address] [place], [place], [id number], [place] tel:[phone] Dental Clinic cons (chief complaint) Encounter for screening for dental disorders Arturo Cardenas. [address], [place], [id number], [place]. tel:[phone] Family History Family Member Type Diagnosis Age At Onset No Information Payers Payer name Insurance type Covered alliance party ID Bill sen(s) [employer] Medicaid Primary [facility] [id number] Social History Type Description Quantity Date Captured Comments Alcohol Use Details Unknown Caffeine Use Details Unknown Tobacco Use Status No Information Smoking Status No Information Sex Female Sexual Orientation Straight or heterosexual Gender Identity Female Vital Signs Date / Time: Height Weight BMI Pulse Rate Blood Pressure Temperature Respiratory Rate Body Surface Area Head Circumference Head Circ. Percentile Wt./Tyron. Percentile BMI percentile Pulse Ox Inhaled Ox 11:51 AM 72 /min 124/80 mm[Hg] 98.20 F Chief Complaint And Reason For Visit From encounter dated '06/06/2022 11:30'. cons (chief complaint). Description: cons Reason For Referral Reason For Referral No Information Plan Of Treatment Date Type Action Status Goal PRAPARE ASSESSMENT. Due on S due Goal Mammogram. Due on due Goal Influenza vaccine. Due on Se due Goal Depression screening. Due on due Goal Tdap. Due on due Goal FOBT. Due on due Goal Lipid panel. Due on due Goal Colonoscopy. Due on due Goal Zoster vaccine (1st). Due on due History Of Present Illness Encounter Date Complaint History Of Prese nt Illness cons cons Functional Status Date Functional Assessmen t No Information Instructions Date Instruction Additional Infor mation No Information Assessments Type Assessment Date No Information Patient Care Teams Name Effective Dates (start - stop) Status Members No Information
--- OUTSIDE RECORDS SUMMARY | 2025-06-08 08:30 | XMS_ITS ---
Author Organization [facility] es Address [address] [place] [address] Care Team Providers Care Cnc Specialist Name Role Phone Tresa Middleton Primary Care Provider REASON FOR VISIT BITE REGISTRATION Encounters Encounter Location Date Provider Diagnosis [address] [place] [address] [place] [address] 06/08/2025 Tresa Ramsay Plan Of Treatment No Information Progress Notes * KEITH WASHINGTON LDOB:1970 (55 yo F)Acc No.[id number]:06/08/2025 Dental Appointment Patient: Paulette KEITH MCKEON :?TRESA RMASAY DDSDOB:1970???Age: 55 Y???Sex:FemaleDate:06/08/2025Phone:[phone]:[address] [place], [place] [id number] Subjective: * Chief Complaints: * B ITE REGISTRATION * Electronic signature of Tresa Ramsay DDS on 09/12/2025 at 01:50 PM ESTSign off status: Pending * Provider: Hector RAMSAY DDS Date: 0 06/08/2025 Generated for Printing/Faxing/eTransmitting on:?09/12/2025 01:50 PM EST
--- OUTSIDE RECORDS SUMMARY | 2025-06-16 03:00 | XMS_ITS ---
Author Organization [facility] es Address [address] [place] [address] Care Team Providers Care Stretching Machine Operator Name Role Phone Tresa Middleton Primary Care Provider Encounters Encounter Location Date Provider Diagnosis [place] [address] [place] [address] 06/16/2025 Tresa Ramsay Plan Of Treatment No Information Progress Notes * KEITH WASHINGTON LDOB:1970 (55 yo F)Acc No.[id number]:06/16/2025 Dental Appointment Patient: KEITH AMAYA :?TRESA RAMSAY DDSDOB:1970???Age: 55 Y???Sex:FemaleDate:06/16/2025Phone:[phone]:[address] [place], [place] [id number] * Electronic signature of Tresa Ramsay DDS on 09/12/2025 at 01:50 PM ESTSign off status: Pending * Provider: Hector RAMSAY DDS Date: 0 06/16/2025 Generated for Printing/Faxing/eTransmitting on:?09/12/2025 01:50 PM EST
--- OUTSIDE RECORDS SUMMARY | 2025-09-02 13:30 | XMS_ITS | Encounter Summary ---
Author Organization [facility] Address [address] [facility] [place] [address] Care Team Providers Care Concrete Batcher Name Role Phone Alma Rosa Lozada MD Primary Care Provider [phone] Alma Rosa Lozada MD Unavailable Michelle Cuenca Unavailable Reason for Referral * Rehabilitation - Outpatient (Routine) - AuthorizedSpecialtyDiagnoses / ProceduresReferred By ContactReferred To ContactPhysical Therapy Diagnoses Lumbosacral radiculopathy Cervical radiculopathy Procedures [place] OFFICE/OUTPATIENT NEW HIGH MDM 60 MINUTES India Infante NP [address] [facility] [address] [place] [address] Phone: tel: fax: aLcey Azar PT Referral IDStatusReasonStart DateExpiration DateVisits RequestedVisits [id number] Specialty Services Required Encounter Details DateTypeDepartmentCare Team (Latest Contact Info)Jaommtrhstn99/10/2025 1:30 PM ESTOffice Visit [facility] [place] [facility] [address] [facility] [address] [place] [phone] India Infante SPLASH LINE OPERATOR [address] [place] [address] Chronic bronchitis, unspecified chronic bronchitis type (HCC) [...] and heating?Not very hard04/03/2024HQ-2AnswerDate RecordedPatient Health Questionnaire-2 Mpgmj97511/03/2024[facility] [place] of Occupational Health - Occupational Stress QuestionnaireAnswerDate RecordedDo you feel stress - tense, restless, nervous, or anxious, or unable to sleep at night because your mind is troubled all the time - these days?Only a bffgtp0504/03/2024Hunger Vital SignAnswerDate RecordedWithin the past 12 months, [...] ValueDate RecordedSex Assigned at BirthNot on fileLegal FfaAtluts21/15/2023 6:41 PM EDTGender IdentityNot on fileSexual OrientationNot on filedocumented as of this encounter Last Filed Vital Signs Vital SignReadingTime TakenCommentsBlood Ueupjopj624/7609/02/2025 1:29 PM EST Ipdtw339509/02/2025 1:29 PM KYLBwrxbiibfhf68.1 ??C (98.7 ??F)09/02/2025 1:29 PM ESTRespiratory Rhtk456711/03/2024 1:29 PM ESTOxygen Uoniybnobb10%09/02/2025 1:29 PM ESTInhaled Oxygen Concentration--Hjiekg392 kg (236 lb 3.2 oz)09/02/2025 1:29 PM CHXNyzslp925.7 cm (5' 7.2 )09/02/2025 1:29 PM ESTBody [...] 1:13 PM Nu Walker LPNPatient Health Questionnaire-2 Axjes77511/03/2024 1:13 PM Nu Walker LPN documented as [...] DateEnd Date Alma Rosa Lozada MD [address] [facility] [address] [place] [address] [facility] - [facility]04/16/23 Alma Rosa Lozada MD [address] [facility] [address] [place] [address] PCP - ACO [facility]09/23/23 Michelle Cuenca PA Physician AssistantNeurology12/17/24documented as of this encounter
[2025-09-12 13:30] VITALS: BP 149/61; PULSE 69; TEMP 36.6; O2SAT 98; BMI 37.1
--- NOTE | 2025-09-12 13:44 | ECG_ITS ---
The [facility] Test Date: 2025-09-12 Pat Name: KEITH WASHINGTON Department: Room: - Gender: Female Battery Starter: : 1970 Requested By: [id number] Order Number: [id number] Reading MD: EDWAROD VILLALOBOS M.D. Measurements Intervals [place] Rate: 57 P: 60 OK: 154 QRS: 34 QRSD: 78 T: 74 QT: 452 QTc: 445 Interpretive Statements 1100 Sinus rhythm 8102 Low QRS voltage in chest leads 9120 atypical ECG Compared to ECG 12/16/2024 13:32:24 Low QRS voltage now present Sinus bradycardia no longer present Electronically Signed On 09-12-2025 16:01:43 EST by EDWARDO VILLALOBOS M.D.
--- NOTE | 2025-09-12 13:44 | XR_ITS ---
The [place] [id number] Patient Name: KEITH WASHINGTON MRN: [id number] date: 1970 Sex: F Assigned Patient Location: ER Current Patient Location: ED.MAIN Accession/Order Number: [id number] Exam Date: 09/12/2025 14:00 Report Date: 09/12/2025 14:06 At the request of: JOSE ALEJANDRO TERRELL MD Procedure: XR chest 1V Single view chest: CLINICAL HISTORY: cough COMPARISON: Chest 12/16/2024 FINDINGS: The heart is normal in size. The lungs are clear. The pulmonary vasculature is normal. Mediastinum and hilar regions are unremarkable. No pleural effusions are seen. Visualized bones are intact. XR/XR chest 1V IMPRESSION: NO ACUTE PROCESS. Impression dictated by: Darren Wahl Jr., D.O. 09/12/2025 2:06 PM Dictation Location: [place] [address] Electronically authenticated by: [id number] Y Date: 09/12/2025 14:06
--- NOTE | 2025-09-12 13:45 | ED.GENADUL1 ---
HPI HPI - General Adult General Chief complaint: Upper Respiratory Infection Stated complaint: COUGH X'S 2 WKS Time Seen by Provider: 09/12/25 13:27 Source: patient Mode of arrival: walk-in Limitations: no limitations History of Present Illness HPI narrative: 55-year-old female presented to the emergency department for a cough which she has had for 10 to 12 days. She has been on amoxicillin for 8 days and stopped it yesterday. She has been coughing up green phlegm. She wanted to get a chest x-ray, she thought her doctor was going to order 1 but apparently they did not. Related Data Home Medications ?Medication ?Instructions ?Recorded ?Confirmed atenolol 50 mg tablet 25 mg PO DAILY 03/24/24 09/12/25 empagliflozin 10 mg tablet 10 mg PO DAILY 03/24/24 09/12/25 (Jardiance) escitalopram oxalate 20 mg tablet 20 mg PO .qhs 03/24/24 09/12/25 levothyroxine 75 mcg tablet 75 mcg PO QAM 03/24/24 09/12/25 omeprazole 20 mg capsule,delayed 20 mg PO QAM PRN reflux 03/24/24 09/12/25 release oxycodone-acetaminophen 5 mg-325 1 tab PO Q12H PRN pain 03/24/24 09/12/25 mg tablet potassium chloride 20 mEq 20 meq PO DAILY 03/24/24 09/12/25 tablet,extended release(part/cryst) (Klor-Con M) albuterol sulfate 90 mcg/actuation 2 inh inhalation Q8H PRN shortness 12/16/24 09/12/25 aerosol inhaler of breath or wheezing cholecalciferol (vitamin D3) 1,250 1,250 mcg PO QWEEK 12/16/24 09/12/25 mcg (50,000 unit) capsule clonazepam 1 mg tablet 1 mg PO Q8H 12/16/24 09/12/25 garlic 5,000 mcg tablet 5 mg PO DAILY 12/16/24 09/12/25 lactobacillus combo no.11 15 1 cap PO DAILY 12/16/24 09/12/25 billion cell sprinkle capsule (Probiotic) meclizine 50 mg tablet 50 mg PO BID PRN dizziness 12/16/24 09/12/25 milk thistle 150 mg capsule 150 mg PO DAILY 12/16/24 09/12/25 multivitamin (Daily Multi-Vitamin 1 tab PO DAILY 12/16/24 09/12/25 tablet) red yeast rice 600 mg capsule 600 mg PO DAILY 12/16/24 09/12/25 tirzepatide 5 mg/0.5 mL 5 mg subcut .q 21 days 12/16/24 09/12/25 subcutaneous pen injector (Mounjaro) biotin 1 mg capsule 1 mg PO DAILY 08/28/25 09/12/25 tizanidine 4 mg tablet 4 mg PO Q12H PRN muscle spasticity 08/28/25 09/12/25 Allergies Allergy/AdvReac Type Severity Reaction Status Date / Time cephalexin (From Keflex) Allergy Intermediate Rash Verified 09/12/25 13:30 moxifloxacin (From Avelox) Allergy Intermediate Abdominal Verified 09/12/25 13:30 Pain nitrofurantoin (From Allergy Intermediate Rash Verified 09/12/25 13:30 Macrobid) morphine Allergy Vomiting Verified 09/12/25 13:30 Opioid HPI Opioid Management Most Recent Opioid Data: Last Pain Scale 5 08/28/25, 15:20 Review of Systems ROS Narrative A ten point review of systems is negative except as noted above. [facility] Medical History (Updated 09/12/25 @ 14:58 by Brendan Wallace MD) COTTER (dyspnea on exertion) ?R06.09 - Other forms of dyspnea (ICD-10) Disc disease with myelopathy GERD (gastroesophageal reflux disease) ?K21.9 - Gastro-esophageal reflux disease without esophagitis (ICD-10) Chronic glossitis ?K14.0 - Glossitis (ICD-10) Edentulous ?K08.109 - Complete loss of teeth, unspecified cause, unspecified class (ICD-10) Gastritis ?K29.70 - Gastritis, unspecified, without bleeding (ICD-10) Chronic sinusitis ?J32.9 - Chronic sinusitis, unspecified (ICD-10) M?ni?re's disease ?H81.09 - Meniere's disease, unspecified ear (ICD-10) Tinnitus ?H93.19 - Tinnitus, unspecified ear (ICD-10) Benign neoplasm of liver ?D13.4 - Benign neoplasm of liver (ICD-10) Hearing loss ?H91.90 - Unspecified hearing loss, unspecified ear (ICD-10) Hypercholesterolemia ?E78.00 - Pure hypercholesterolemia, unspecified (ICD-10) Liver cyst ?K76.89 - Other specified diseases of liver (ICD-10) Pancreatic cyst ?K86.2 - Cyst of pancreas (ICD-10) Transient ischemic attack (2015) ?G45.9 - Transient cerebral ischemic attack, unspecified (ICD-10) Carpal tunnel syndrome ?G56.00 - Carpal tunnel syndrome, unspecified upper limb (ICD-10) Fibromyalgia ?M79.7 - Fibromyalgia (ICD-10) Neck pain ?M54.2 - Cervicalgia (ICD-10) Back pain ?M54.9 - Dorsalgia, unspecified (ICD-10) Depression ?F32.A - Depression, unspecified (ICD-10) Panic attacks ?F41.0 - Panic disorder [episodic paroxysmal anxiety] (ICD-10) Anxiety ?F41.9 - Anxiety disorder, unspecified (ICD-10) Chronic obstructive pulmonary disease ?J44.9 - Chronic obstructive pulmonary disease, unspecified (ICD-10) Vertigo ?R42 - Dizziness and giddiness (ICD-10) Dyspareunia Menopause ?Z78.0 - Asymptomatic menopausal state (ICD-10) IBS (irritable bowel syndrome) ?K58.9 - Irritable bowel syndrome, unspecified (ICD-10) Chronic kidney disease ?N18.9 - Chronic kidney disease, unspecified (ICD-10) Constipation ?K59.00 - Constipation, unspecified (ICD-10) Palpitations ?R00.2 - Palpitations (ICD-10) Hypertension ?I10 - Essential (primary) hypertension (ICD-10) Diabetes ?E11.9 - Type 2 diabetes mellitus without complications (ICD-10) Hypothyroidism ?E03.9 - Hypothyroidism, unspecified (ICD-10) Surgical History (Updated 12/16/24 @ 13:42 by Mary Aceves NP) History of carpal tunnel release ?Z98.890 - Other specified postprocedural states (ICD-10) H/O sinus surgery ?Z98.890 - Other specified postprocedural states (ICD-10) H/O eye surgery ?Z98.890 - Other specified postprocedural states (ICD-10) H/O section ?Z98.891 - History of uterine scar from previous surgery (ICD-10) History of cardiac catheterization ?Z98.890 - Other specified postprocedural states (ICD-10) History of liver biopsy ?Z98.890 - Other specified postprocedural states (ICD-10) H/O biopsy of pancreas ?Z98.890 - Other specified postprocedural states (ICD-10) H/O Spinal surgery ?Z98.890 - Other specified postprocedural states (ICD-10) History of hernia repair ?Z98.890 - Other specified postprocedural states (ICD-10) ?Z87.19 - Personal history of other diseases of the digestive system (ICD-10) History of colonoscopy ?Z98.890 - Other specified postprocedural states (ICD-10) History of cholecystectomy ?Z90.49 - Acquired absence of other specified parts of digestive tract (ICD-10) Family History (Updated 12/16/24 @ 13:21 by Mary Aceves NP) Other Family history of heart disease Family history of hypertension Family history of myocardial infarction Social History (Updated 12/16/24 @ 13:12 by Mary Aceves NP) Within the past year, how often did you have a drink containing alcohol: never Score interpretation: A score less than 3 is consistent with normal alcohol consumption. Smoking status: Current every day smoker What tobacco products do you use: cigarettes Packs per day: 1 Years smoked: 15 Smoking pack-years: 15.00 Non-prescribed substance use: cannabis (any form) Highest level of school completed/degree received: high school graduate Little interest or pleasure in doing things: not at all Feeling down, depressed, or hopeless: not at all Exam Narrative Exam Narrative: Nurses note and vital signs reviewed General:The patient appears in no apparent distress.Patient is resting comfortably on cart. Skin:Warm, dry, no pallor noted.There is no rash noted. Head:Normocephalic, atraumatic Eye: Normal conjunctiva, no drainage Ears, Nose, Mouth, and Throat: oral mucosa is moist. Nares patent. Cardiovascular:Regular Rate and Rhythm Respiratory:Patient is in no distress, no accessory muscle use, bilateral rhonchi present Back:non-tender GI: Soft and nontender Musculoskeletal: The patient has no evidence of calf tenderness, no pitting edema, symmetrical pulses noted bilaterally Neurological:A&O, normal speech Psychiatric:Cooperative Constitutional Vital Signs, click to edit/add: Last Vital Signs Temp 98 F 09/12/25 13:30 Pulse 69 09/12/25 13:30 Resp 20 09/12/25 13:30 BP 149/61 H 09/12/25 13:30 Pulse Ox 98 09/12/25 13:30 O2 Del Method Room Air 09/12/25 13:30 Course Vital Signs Vital signs: Vital Signs Temperature 98 F 09/12/25 13:30 Pulse Rate 69 09/12/25 13:30 Respiratory Rate 20 09/12/25 13:30 Blood Pressure 149/61 H 09/12/25 13:30 Pulse Oximetry 98 09/12/25 13:30 Oxygen Delivery Method Room Air 09/12/25 13:30 Temperature 98 F 09/12/25 13:30 Pulse Rate 69 09/12/25 13:30 Respiratory Rate 20 09/12/25 13:30 Blood Pressure 149/61 H 09/12/25 13:30 Pulse Oximetry 98 09/12/25 13:30 Oxygen Delivery Method Room Air 09/12/25 13:30 Medical Decision Making MDM Narrative Medical decision making narrative: Testing including chest x-ray is negative. COVID and influenza is negative as well. My clinical impression is that she has a viral URI and she is discharged home. Treatment diagnosis and follow-up were discussed with the patient. Differential Diagnosis Differential Diagnosis: Viral URI, COVID, influenza, pneumonia Lab Data Lab results reviewed: Yes I reviewed the patient's lab results Labs: Lab Results 09/12/25 09/12/25 Range/Units 13:34 14:07 WBC 7.6 (4.0-11.0) 10^3/uL RBC 5.04 (4.20-5.40) 10^6/uL Hgb 15.0 (12.0-16.0) g/dL Hct 45.1 (36.0-48.0) % MCV 89.5 (81.0-99.0) fL MCH 29.8 (26.7-34.0) pg MCHC 33.3 (29.9-35.2) g/dL RDW 13.1 (11.0-15.0) % Plt Count 238 (150-450) 10^3/uL MPV 9.8 (9.5-13.5) fL Neut % (Auto) 51.2 (43.0-75.0) % Lymph % (Auto) 38.1 (20.5-60.0) % [place] % (Auto) 8.2 (1.7-12.0) % Eos % (Auto) 1.4 (0.9-7.0) % Baso % (Auto) 0.7 (0.2-2.0) % Neut # (Auto) 3.9 (1.4-6.5) 10^3/uL Lymph # (Auto) 2.9 (1.2-3.8) 10^3/uL [place] # (Auto) 0.6 (0.3-0.8) 10^3/uL Eos # (Auto) 0.1 (0.0-0.7) 10^3/uL Baso # (Auto) 0.1 (0.0-0.1) 10^3/uL Abs Immat Gran (auto) 0.03 (0.00-0.03) 10^3/uL Imm/Tot Granulo (auto) 0.4 (0.0-0.5) % Sodium 141 (136-145) mmol/L Potassium 4.2 (3.5-5.1) mmol/L Chloride 105 (98-107) mmol/L Carbon Dioxide 29.2 (21.0-32.0) mmol/L Anion Gap 11.0 BUN 14.0 (7.0-18.0) mg/dL Creatinine 0.92 (0.55-1.02) mg/dL Est GFR ( Amer) >60 (>=60 mL/min/1.73m^2) Est GFR (Non-Af Amer) >60 (>=60 mL/min/1.73m^2) BUN/Creatinine Ratio 15.2 Glucose 116 H (74-106) mg/dL Calcium 8.7 (8.5-10.1) mg/dL Influenza Type A Ag Negative Influenza Type B Ag Negative SARS-CoV-2 Ag (CV2AG) Negative (NEGATIVE) Imaging Data Chest x-ray: Radiologist's impression: ITS Impressions Chest X-Ray 09/12/25 13:44 IMPRESSION: NO ACUTE PROCESS. Impression dictated by: Darren Wahl Jr., D.O. 09/12/2025 2:06 PM Dictation Location: [place] [address] Electronically authenticated by: [id number] Y Date: 09/12/2025 14:06 Discharge Plan Discharge Chief Complaint: Upper Respiratory Infection Clinical Impression: Viral URI Patient Disposition: Home, Self-Care Time of Disposition Decision: 14:58 Condition: Good Mode of Transportation: Private Vehicle Prescriptions / Home Meds: No Action biotin 1 mg capsule 1 mg PO DAILY tizanidine 4 mg tablet 4 mg PO Q12H PRN (Reason: muscle spasticity) atenolol 50 mg tablet 25 mg PO DAILY Jardiance 10 mg tablet 10 mg PO DAILY escitalopram oxalate 20 mg tablet 20 mg PO .qhs levothyroxine 75 mcg tablet 75 mcg PO QAM omeprazole 20 mg capsule,delayed release(DR/EC) 20 mg PO QAM PRN (Reason: reflux) Rx Instructions: before meal oxycodone-acetaminophen 5-325 mg tablet 1 tab PO Q12H PRN (Reason: pain) potassium chloride [Klor-Con M20] 20 mEq tablet,ER particles/crystals 20 meq PO DAILY clonazepam 1 mg tablet 1 mg PO Q8H meclizine 50 mg tablet 50 mg PO BID PRN (Reason: dizziness) red yeast rice 600 mg capsule 600 mg PO DAILY Rx Instructions: give with meal/snack milk thistle 150 mg capsule 150 mg PO DAILY Rx Instructions: give with meal/snack garlic 5,000 mcg tablet 5 mg PO DAILY multivitamin [Daily Multi-Vitamin] Tablet 1 tab PO DAILY cholecalciferol (vitamin D3) 1,250 mcg (50,000 unit) capsule 1,250 mcg PO QWEEK Probiotic 15 billion cell capsule, sprinkle 1 cap PO DAILY Rx Instructions: do not crush/chew/cut; swallow whole OR may open and sprinkle in cold drink/food albuterol sulfate 90 mcg/actuation HFA aerosol inhaler 2 inh inhalation Q8H PRN (Reason: shortness of breath or wheezing) Mounjaro 5 mg/0.5 mL pen injector 5 mg SUBCUT .q 21 days Print Language: Australian Instructions: Upper Respiratory Infection (ED) Referrals: ERIK SMITH [Primary Care Provider, Family Practice] - 1 week
--- OUTSIDE RECORDS SUMMARY | 2025-09-12 13:50 | XMS_ITS | Encounter Summary ---
Author Organization [facility] Address [address] [facility] [place] [address] Care Team Providers Care Balance Truer Name Role Phone Alma Rosa Lozada MD Primary Care Provider Alma Rosa Lozada MD Unavailable Michelle Cuenca Unavailable Encounter Details DateTypeDepartmentCare Team (Latest Contact Info)Pjquhwtduqh67/11/2025bstract [facility] [address] [place] [address] Alma Rosa Lozada MD [address] [facility] [address] [place], [place] [address] Social History Tobacco UseTypesPacks/DayYears UsedDateSmoking Tobacco: Every [...] and heating?Not very hard04/03/2024HQ-2AnswerDate RecordedPatient Health Questionnaire-2 Vgfxn91611/03/2024[facility] [place] of Occupational Health - Occupational Stress QuestionnaireAnswerDate RecordedDo you feel stress - tense, restless, nervous, or anxious, or unable to sleep at night because your mind is troubled all the time - these days?Only a rzcyef0404/03/2024Hunger Vital SignAnswerDate RecordedWithin the past 12 months, [...] ValueDate RecordedSex Assigned at BirthNot on fileLegal NmqBtjjgq09/15/2023 6:41 PM EDTGender IdentityNot on fileSexual OrientationNot on filedocumented as of this encounter Plan of Treatment Not on file documented as of this encounter Visit Diagnoses Not on filedocumented in this encounter Additional Health Concerns AssessmentNoted TimePHQ-9 Depression Total Score: 11:00 AM EST documented as of this encounter Care Teams Team MemberRelationshipSpecialtyStart DateEnd Date Alma Rosa Lozada MD [address] [facility] [address] [place] [address] [facility] - [facility]/16/23 Alma Rsoa Lozada MD [address] [place] [address] PCP - [facility]09/23/23 Michelle Cuenca PA Physician AssistantNeurology12/17/24documented as of this encounter
--- OUTSIDE RECORDS SUMMARY | 2025-09-12 13:50 | XMS_ITS | Clinical Summary ---
Author Organization [employer] s tem Address [id number] [address] [place] [address] Care Team Providers Care Glassblower Name Role Phone Unavailable Primary Care Provider Unavailabl e Allergies Active AllergyReactionsCriticalityNoted DateCommentsAzithromycinRash,Other (See Comments)Low11/22/20150466TumzxaykvxQptyDic29/23/2023orticosteroids (Glucocorticoids)Other (See Comments)11/22/2015MorphineOther (See Comments), Syrfkxlg54/29/2016MoxifloxacinRash,Other (See Comments)Low11/22/2015 NitrofurantoinOther (See Comments)11/22/2015Nitrofurantoin Monohyd/M-CrystRash, Other [...] Active Problems ProblemNoted DateDiagnosed DateSerous cystadenoma of ksvnmshy45/10/2024 Family History Medical HistoryRelationNameCommentsCancerMaternal AuntbreastColon cancerMaternal GrandmotherRelationNameStatusCommentsFatherDeceasedMaternal AuntDeceasedMaternal GrandmotherDeceasedMotherAlive Social History Tobacco UseTypesPacks/DayYears UsedDateSmoking Tobacco: Every DayCigarettes Smokeless Tobacco: Never Tobacco Cessation:Ready to Q uit: Not Asked; Counseling Given: Not Answered Alcohol UseStandard Drinks/WeekCommentsNever0 (1 standard drink = 0.6 oz pure alcohol)ChildcareAnswerDate OgphnknrHkizeirnuNbsqcwq10/12/2019EmploymentAnswer Date YrclclegCjrnlxadcpWnflvxi63/12/2019Hunger ScreeningAnswerDate Recorded Within the past 12 months we worried whether our food would run out before we got money to buy more.Never True06/03/2024Within the past 12 months the food we bought just didn't last and we didn't have money to get more.Never True 06/03/2024CommentsUnknownSex and Gender InformationValueDate RecordedSex Assigned at BirthNot on fileLegal SgiLyhxww98/06/2015 11:44 AM EDTGender IdentityNot on fileSexual OrientationNot on file Last Filed Vital Signs Vital SignReadingTime TakenCommentsBlood Fjvhuora037/7609 1:34 PM EDT Uxecg567706/03/2024 1:34 PM EDTTemperature--Respiratory Rate--Oxygen Saturation-- Inhaled Oxygen Concentration--Evhxhm855.1 kg (231 lb 12.8 oz)06/03/2024 1:34 PM KXWAlrhyd688.6 cm (5' 6 )06/03/2024 1:34 PM EDTBody Mass Index37.4109 1:34 PM EDT Plan of Treatment Health MaintenanceDue DateLast DoneCommentsDepression Uyihriuec61/29/1980 DTaP,Tdap and Td Vaccines (1 - Tdap)1987Zoster (Shingles) Vaccine (2 of 2) Pap Smear//OVID-19 Vaccine (3 - 2024-26 season)/07/2021, 12/06/2020Influenza Pkclgpu2405/25/2025dult BMI Agcugrxyb61/06/2024Tobacco Sdcrrczfd58 Medical Devices Not on file Insurance
--- OUTSIDE RECORDS SUMMARY | 2025-09-12 13:50 | XMS_ITS | Clinical Summary ---
Author Organization [facility] Address [address] [place], [place] [address] Care Team Providers Care Waiter/Waitress Buffet Name Role Phone Alma Rosa Lozada MD Primary Care Provider [phone] Horacio Camara MD Unavailable [phone] Allergies Active AllergyReactionsCriticalityNoted DateCommentsMoxifloxacin HclUnknown 11/22/2015Nitrofurantoin Monohyd/M-PlgncXdoygax40/29/2015MorphineUnknown 11/22/20150486ItopjxnojdvjRycyyri01/29/1783UjefiaxhlfeoplEwgsncd83/29/2016 Corticosteroids (Glucocorticoids)Kvfkaqy6911/22/20157746PaxtiqomnmlfWmsfibp73/29/2016 Medications MedicationSigDispense QuantityRefillsLast FilledStart DateEnd DateStatus docusate [...] DateDiagnosed DateModerate episode of recurrent major depressive phqqytwq32/29/3894Bbextwpkv82/29/2016Normal coronary qapzuqqz98/29/2016Non morbid obesity due to excess mgflwtah80/29/2016Antidepressants causing adverse effect in therapeutic use11/22/2015 Family History Medical HistoryRelationCommentsblood disorder [Other]FatherRelationStatus CommentsFatherDeceasedMotherAlive Social History Tobacco UseTypesPacks/DayYears UsedDateSmoking Tobacco: Every DayCigarettes0.515 Smokeless Tobacco: NeverAlcohol UseStandard Drinks/WeekCommentsNo0 (1 standard drink = 0.6 oz pure alcohol)CommentsUnknownSex and Gender Information ValueDate RecordedSex Assigned at BirthNot on fileLegal UfwRqzqac85/02/2012 7:29 AM ESTGender IdentityNot on fileSexual OrientationNot on fileOccupationIndustry Job Start DateJob End DatedisabilityNot on fileNot on fileNot on file Last Filed Vital Signs Vital SignReadingTime TakenCommentsBlood Bskcdeix422/8311/22/2015 10:16 AM EST large qspjWitdk5419/29/2016 10:16 AM ESTTemperature--Respiratory Rate16 11/22/2015 10:16 AM ESTOxygen Fixfpzeiwl22%11/22/2015 10:16 AM ESTInhaled Oxygen Concentration--Jknklk690.6 kg (268 lb)11/22/2015 10:16 AM ZTCKhcyml662.6 cm (5' 6 )11/22/2015 10:16 AM ESTBody Mass Index43.26011/22/2015 10:16 AM EST Plan of Treatment Health MaintenanceDue DateLast DoneCommentsAnxiety Uysfssfdh50/29/1986Depression Sbcwfyfry81/29/1986HIV Qklqewetq39/29/1986Hepatitis C Loaznwysc94/29/1986 DTaP,Tdap,Td Vaccine (1 - Tdap)1987Hepatitis B Vaccine (1 of 3 - 19+ 3- dose series)1987Cervical Cancer Okbaqqwku33/29/1989Mammogram Screening 2008CT Fyhmwuqujdtx08/29/2013Cologuard (FIT-DNA)2013Colonoscopy 2013Colorectal Cancer Funsjdgyv21/29/2013Diabetes Fhtqmnqaq29/29/2013Fecal Occult Blood2013Lipid Fvjqlbasw96/29/8242Ffvwjhbwbflrc65/29/2013 Pneumococcal Vaccine: 50+ (1 of 1 - PCV)2018Shingrix Vaccine (1 of 2) 2018Covid-19 Vaccine (1 - season)2025Influenza Vaccine (#1) 2025RSV Vaccine (1 - 1-dose 75+ series)2043 Insurance Care Teams Team MemberRelationshipSpecialtyStart DateEnd Date Alma Rosa Lozada MD [address] [facility] 110 [place] [address] PCP - GeneralCardiology02/01/05 Horacio Camara MD [address] [facility] [address] [place] [address] Primary Staff PhysicianCardiology12/10/18
--- OUTSIDE RECORDS SUMMARY | 2025-09-12 13:50 | XMS_ITS | Encounter Summary ---
Author Organization [facility] Address [address] [facility] [place] [address] Care Team Providers Care Director Organizational Name Role Phone Alma Rosa Lozada MD Primary Care Provider [phone] Alma Rosa Lozada MD Unavailable Michelle Cuenca Unavailable Encounter Details DateTypeDepartmentCare Team (Latest Contact Info)Liovccfdtgu99/10/2025amboo flowsheet [facility] [address] [place] [address] India Infante, AUTOMOTIVE SERVICE TECHNICIAN [address] [facility] [address] [place], [place] [address] Social History Tobacco UseTypesPacks/DayYears UsedDateSmoking Tobacco: Every [...] and heating?Not very hard04/03/2024HQ-2AnswerDate RecordedPatient Health Questionnaire-2 Ekadd62911/03/2024[facility] [place] of Occupational Health - Occupational Stress QuestionnaireAnswerDate RecordedDo you feel stress - tense, restless, nervous, or anxious, or unable to sleep at night because your mind is troubled all the time - these days?Only a egxiin8004/03/2024Hunger Vital SignAnswerDate RecordedWithin the past 12 months, [...] ValueDate RecordedSex Assigned at BirthNot on fileLegal IcnBkhdjz48/15/2023 6:41 PM EDTGender IdentityNot on fileSexual OrientationNot on filedocumented as of this encounter Plan of Treatment Not on file documented as of this encounter Visit Diagnoses Not on filedocumented in this encounter Additional Health Concerns AssessmentNoted TimePHQ-9 Depression Total Score: 11:00 AM EST documented as of this encounter Care Teams Team MemberRelationshipSpecialtyStart DateEnd Date Alma Rosa Lozada MD [address] [facility] [address] [place] [address] [facility] - [facility]04/16/23 Alma Rosa Lozada MD [address] [place] [address] PCP - [facility]CO [facility]09/23/23 Michelle Cuenca PA Physician AssistantNeurology12/17/24documented as of this encounter
--- OUTSIDE RECORDS SUMMARY | 2025-09-12 13:50 | XMS_ITS | Patient Health Record ---
Author Organization [employer] [facility] Address [address] [place] [address] Care Team Providers Care Clay Miller Name Role Phone Audrey Middleton Primary Care Provider Reason For Referral No Information Medications Medication SIG (Take, Route, Frequency, Duration) Notes Start Date End Date Status Nystatin 662416 units/g topical ointment applied topically as directed four times a day; Duration: fourteen days 04/23/2023ctive Encounters Encounter Location Date Provider Diagnosis [address] [place] [address] 06/08/2025 Aud[facility] [place] [address]/Fiorella Jen [facility] [place] [address]/[facility] [address] [place] [address] 03/19/2025Fiorella Jen CastilloDental caries on pit and fissure surface penetrating into dentin K02.52 and Encounter for dental examination and cleaning with abnormal findings Z01.21[facility] [place] [address] 05/26/2025[facility] [place] [address]/Fiorella Jen Dooley Assessments Encounter Date Diagnosis (ICD [...] End Date MEDICARE CGS [address] [place]NNIE [place] [phone] [id number] Lilian [place] - patient is the [id number] 2022ENTAL MEDICAID [address] [place] [id number], GAILSelf - patient is the [id number] 2022
--- OUTSIDE RECORDS SUMMARY | 2025-09-12 13:50 | XMS_ITS | Encounter Summary ---
Author Organization [facility] Address [address] [place] [address] Care Team Providers Care Veneer Grader Name Role Phone Alma Rosa Lozada MD Primary Care Provider [phone] Alma Rosa Lozada MD Unavailable Michelle Cuenca Unavailable Encounter Details DateTypeDepartmentCare Team (Latest Contact Info)Edhnqopbdsz47/10/2025Travel Social History Tobacco UseTypesPacks/DayYears UsedDateSmoking Tobacco: Every [...] and heating?Not very hard04/03/2024HQ-2AnswerDate RecordedPatient Health Questionnaire-2 Zomte53911/03/2024[facility] [place] of Occupational Health - Occupational Stress QuestionnaireAnswerDate RecordedDo you feel stress - tense, restless, nervous, or anxious, or unable to sleep at night because your mind is troubled all the time - these days?Only a gnudtm6504/03/2024Hunger Vital SignAnswerDate RecordedWithin the past 12 months, [...] ValueDate RecordedSex Assigned at BirthNot on fileLegal VgwIlnulk27/15/2023 6:41 PM EDTGender IdentityNot on fileSexual OrientationNot on filedocumented as of this encounter Plan of Treatment Not on file documented as of this encounter Visit Diagnoses Not on filedocumented in this encounter Additional Health Concerns AssessmentNoted TimePHQ-9 Depression Total Score: 11:00 AM EST documented as of this encounter Care Teams Team MemberRelationshipSpecialtyStart DateEnd Date Alma Rosa Lozada MD [address] [facility] 110 [place] [address] PCP - GeneralFamily Medicine04/16/23 Alma Rosa Lozada MD [address] [place] [address] PCP - ACO [facility]09/23/23 Michelle Cuenca PA Physician AssistantNeurology12/17/24documented as of this encounter
--- OUTSIDE RECORDS SUMMARY | 2025-09-12 13:51 | XMS_ITS | Encounter Summary ---
Author Organization [facility] Address [address] [place] [address] Care Team Providers Care Ground Wirer Name Role Phone Alma Rosa Lozada MD Primary Care Provider [phone] Alma Rosa Lozada MD Unavailable Michelle Cuenca Unavailable Encounter Details DateTypeDepartmentCare Team (Latest Contact Info)Kwzuxxrtgaf29/08/2025bstract [facility] [address] [place] [address] Lulú Pringle LPN [address] [facility] 110 [place] [address] Social History Tobacco UseTypesPacks/DayYears UsedDateSmoking [...] and heating?Not very hard04/03/2024HQ-2AnswerDate RecordedPatient Health Questionnaire-2 Knexy25311/03/2024[facility] [place] of Occupational Health - Occupational Stress QuestionnaireAnswerDate RecordedDo you feel stress - tense, restless, nervous, or anxious, or unable to sleep at night because your mind is troubled all the time - these days?Only a tjoqee2104/03/2024Hunger Vital SignAnswerDate RecordedWithin the past 12 months, [...] ValueDate RecordedSex Assigned at BirthNot on fileLegal OkvXwhwnq55/15/2023 6:41 PM EDTGender IdentityNot on fileSexual OrientationNot on filedocumented as of this encounter Plan of Treatment Not on file documented as of this encounter Visit Diagnoses Not on filedocumented in this encounter Additional Health Concerns AssessmentNoted TimePHQ-9 Depression Total Score: 11:00 AM EST documented as of this encounter Care Teams Team MemberRelationshipSpecialtyStart DateEnd Date Alma Rosa Lozada MD [address] [place] [address] PCP - GeneralFamily Medicine04/16/23 Alma Rosa Lozada MD [address] [place] [address] PCP - ACO [facility]09/23/23 Michelle Cuenca PA Physician AssistantNeurology12/17/24documented as of this encounter
--- OUTSIDE RECORDS SUMMARY | 2025-09-12 13:51 | XMS_ITS | Clinical Summary ---
Author Organization [facility] Address [address] [facility], [address] [place] [address] Care Team Providers Care Security Patrol Officer Name Role Phone Unavailable Primary Care Provider Unavailabl e Social History Tobacco UseTypesPacks/DayYears UsedDateSmoking Tobacco: Never Assessed CommentsUnknownSex and Gender InformationValueDate RecordedSex Assigned at Not on fileLegal OswZzhsmj42/18/2019 8:37 AM ESTGender IdentityNot on fileSexual OrientationNot on file Plan of Treatment Not on file Insurance
--- OUTSIDE RECORDS SUMMARY | 2025-09-12 13:51 | XMS_ITS | Encounter Summary ---
Author Organization [facility] Address [address] [place] [address] Care Team Providers Care Email Production Specialist Name Role Phone Alma Rosa Lozada MD Primary Care Provider Alma Rosa Lozada MD Unavailable Michelle Cuenca Unavailable Encounter Details DateTypeDepartmentCare Team (Latest Contact Info)Lnbasftyykq44/08/2025Patient Outreach [facility] [address] [place] [address] Lulú Pringle LPN [address] [facility] 110 [place] [address] Social History Tobacco UseTypesPacks/DayYears UsedDateSmoking [...] and heating?Not very hard04/03/2024HQ-2AnswerDate RecordedPatient Health Questionnaire-2 Dmllg776Finuintah basin medical center [place] of Occupational Health - Occupational Stress QuestionnaireAnswerDate RecordedDo you feel stress - tense, restless, nervous, or anxious, or unable to sleep at night because your mind is troubled all the time - these days?Only a kykucp5504/03/2024Hunger Vital SignAnswerDate RecordedWithin the past 12 months, [...] ValueDate RecordedSex Assigned at BirthNot on fileLegal BhaFggtao62/15/2023 6:41 PM EDTGender IdentityNot on fileSexual OrientationNot [...] Flowsheet Row Patient Outreach from 08/31/2025 in [facility] with Lulú Pringle LPN Hospital Information ED, Hospital or Longterm Facility Discharge? ED Patient has been contacted within 2 days of being seen in the ED Yes Diagnosis Cervical radiculopathy, Lumbar radiculopathy Discharge Date 08/28/25 Discharged To: Home Setting Discharge Hospital [facility] Engagement Call Start Time 1612 Admission [...] of the foot that she describes as fnec-azl-aiarowp. She has also been feeling some lightening [...] DateEnd Date Alma Rosa Lozada MD [address] [facility] 110 [place] [address] PCP - GeneralFamily Medicine04/16/23 Alma Rosa Lozada MD [address] [facility] 110 [place] [address] PCP - ACO [facility]09/23/23 Michelle Cuenca PA Physician AssistantNeurology12/17/24documented as of this encounter
--- OUTSIDE RECORDS SUMMARY | 2025-09-12 13:51 | XMS_ITS | Encounter Summary ---
Author Organization [facility] Address [address] [place] [address] Care Team Providers Care Casting Trucker Name Role Phone Alma Rosa Lozada MD Primary Care Provider [phone] Alma Rosa Lozada MD Unavailable Michelle Cuenca Unavailable Reason for Visit * ReasonOnset DateCommentsMedication Zicvnuvl92/18/2025Was in to see you last week is no better, would like a chest Xray sent to [facility] and didn't know if you wanted to call something else in. Encounter Details DateTypeDepartmentCare Team (Latest Contact Info)Pgqybculwsl79/18/2025Telephone [facility] [address] [place] [address] [place] [address] Ellen Montalvo Medication Question (Was in to see you last week is no better, would like a chest Xray sent to [facility] and didn't know if you wanted to call something else in.) Social History Tobacco UseTypesPacks/DayYears UsedDateSmoking Tobacco: Every [...] and heating?Not very hard04/03/2024HQ-2AnswerDate RecordedPatient Health Questionnaire-2 Cjywg21211/03/2024[facility] [place] of Occupational Health - Occupational Stress QuestionnaireAnswerDate RecordedDo you feel stress - tense, restless, nervous, or anxious, or unable to sleep at night because your mind is troubled all the time - these days?Only a bnjnyu6204/03/2024Hunger Vital SignAnswerDate RecordedWithin the past 12 months, [...] ValueDate RecordedSex Assigned at BirthNot on fileLegal WhaMamdut82/15/2023 6:41 PM EDTGender IdentityNot on fileSexual OrientationNot on filedocumented as of this encounter Plan of Treatment Not on file documented as of this encounter Visit Diagnoses Not on filedocumented in this encounter Additional Health Concerns AssessmentNoted TimePHQ-9 Depression Total Score: 11:00 AM EST documented as of this encounter Care Teams Team MemberRelationshipSpecialtyStart DateEnd Date Alma Rosa Lozada MD [address] [facility] 110 [place] [address] PCP - GeneralFamily Medicine04/16/23 Alma Rosa Lozada MD [address] [facility] 110 [place] [address] PCP - [facility]CO [facility]09/23/23 Michelle Cuenca PA Physician AssistantNeurology12/17/24documented as of this encounter
--- OUTSIDE RECORDS SUMMARY | 2025-09-12 13:51 | XMS_ITS ---
Author Organization [facility] Address [address] [facility] [place] [address] Care Team Providers Care Occ Ther Name Role Phone Alma Rosa Lozada MD Primary Care Provider [phone] Alma Rosa Lozada MD Unavailable Michelle Cuenca Unavailable Emergency Department Transitional Care Management (TCM) Status:Closed (Closed) Start date:08/28/2025 Enrollment date:08/31/2025 Enrollment reason:Identified using discharge data End date:08/31/2025 Close reason:Assistance not needed Overview Discharged from [facility] ER on 08/28. Please contact within 2 days of discharge for ER MONTY and schedule a follow-up appointment if needed. Continued Care and Services Coordination
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
[2025-09-12 13:53] LABS: SARS-CoV-2 Ag NEGATIVE (NEGATIVE)
[2025-09-12 14:18] LABS: Hematocrit 45.1 % (36.0-48.0); Hemoglobin 15.0 g/dL (12.0-16.0); Immature Granulocytes Abs Auto 0.03 10^3/uL (0.00-0.03); Immature Granulocytes Pct Auto 0.4 % (0.0-0.5); Lymphocytes Absolute Auto 2.9 10^3/uL (1.2-3.8); Mean Corpuscular HGB Conc 33.3 g/dL (29.9-35.2); Mean Corpuscular Hemoglobin 29.8 pg (26.7-34.0); Mean Corpuscular Volume 89.5 fL (81.0-99.0); Platelet Count 238 10^3/uL (150-450); Red Blood Count 5.04 10^6/uL (4.20-5.40); White Blood Count 7.6 10^3/uL (4.0-11.0)
[2025-09-12 14:37] LABS: Anion Gap 11.0; Blood Urea Nitrogen 14.0 mg/dL (7.0-18.0); Calcium 8.7 mg/dL (8.5-10.1); Carbon Dioxide 29.2 mmol/L (21.0-32.0); Chloride 105 mmol/L (98-107); Estimated GFR (African America >60 (>=60 mL/min/1.73m^2); Estimated GFR (Non-African Ame >60 (>=60 mL/min/1.73m^2); Glucose 116 mg/dL (74-106); Potassium 4.2 mmol/L (3.5-5.1); Sodium 141 mmol/L (136-145)
== END 2025-09-12 15:08 | disposition home or self-care (01) ==
PROVIDERS: Emergency Provider Emergency Medicine; PCP Family Medicine
DX: J06.9 Acute upper respiratory infection, unspecified (principal); F17.210 Nicotine dependence, cigarettes, uncomplicated
CPT/HCPCS: 36415; 71045; 80048; 85025; 87804; 87811; 93005; 99283; 99285

== ENCOUNTER 2025-09-14 07:48 | Outpatient (OUT) | payer MEDICARE, MEDICAID, SELFPAY ==
--- OUTSIDE RECORDS SUMMARY | 2025-06-08 08:30 | XMS_ITS ---
Author Organization [facility] es Address [address] [place] [address] Care Team Providers Care Purification Operator Helper Name Role Phone Tresa Middleton Primary Care Provider [phone] REASON FOR VISIT BITE REGISTRATION Encounters Encounter Location Date Provider Diagnosis [address] [place] [address] [place] [address] 06/08/2025 Tresa Ramsay Plan Of Treatment No Information Progress Notes * KEITH WASHINGTON LDOB:1970 (55 yo F)Acc No.[id number]:06/08/2025 Dental Appointment Patient: Paulette KEITH MCKEON :?TRESA RAMSAY DDSDOB:1970???Age: 55 Y???Sex:FemaleDate:06/08/2025Phone:[phone]:[address] [place], [place] [id number] Subjective: * Chief Complaints: * B ITE REGISTRATION * Electronic signature of Tresa Ramsay DDS on 09/14/2025 at 07:50 AM ESTSign off status: Pending * Provider: Hector RAMSAY DDS Date: 0 06/08/2025 Generated for Printing/Faxing/eTransmitting on:?09/14/2025 07:50 AM EST
--- OUTSIDE RECORDS SUMMARY | 2025-06-16 03:00 | XMS_ITS ---
Author Organization [facility] es Address [address] [place] [address] Care Team Providers Care Vest Finisher Name Role Phone Tresa Middleton Primary Care Provider [phone] Encounters Encounter Location Date Provider Diagnosis [place] [address] [place] [address] 06/16/2025 Tresa Ramsay Plan Of Treatment No Information Progress Notes * KEITH WASHINGTON LDOB:1970 (55 yo F)Acc No.[id number]:06/16/2025 Dental Appointment Patient: KEITH AMAYA :?TRESA RAMSAY DDSDOB:1970???Age: 55 Y???Sex:FemaleDate:06/16/2025Phone:[phone]:[address] [place], [place] [id number] * Electronic signature of Tresa Ramsay DDS on 09/14/2025 at 07:51 AM ESTSign off status: Pending * Provider: Hector RAMSAY DDS Date: 0 06/16/2025 Generated for Printing/Faxing/eTransmitting on:?09/14/2025 07:51 AM EST
--- OUTSIDE RECORDS SUMMARY | 2025-09-02 13:30 | XMS_ITS | Encounter Summary ---
Author Organization [facility] Address [address] [facility] [place] [address] Care Team Providers Care Account Services Manager Name Role Phone Alma Rosa Lozada MD Primary Care Provider [phone] Alma Rosa Lozada MD Unavailable Michelle Cuenca Unavailable Reason for Referral * Rehabilitation - Outpatient (Routine) - AuthorizedSpecialtyDiagnoses / ProceduresReferred By ContactReferred To ContactPhysical Therapy Diagnoses Lumbosacral radiculopathy Cervical radiculopathy Procedures IN OFFICE/OUTPATIENT NEW HIGH MDM 60 MINUTES India Infante, JODIE [address] [facility] [address] [place] [address] Phone: tel: fax: Lacey Azar PT Referral IDStatusReasonStart DateExpiration DateVisits RequestedVisits [id number] Specialty Services Required Encounter Details DateTypeDepartmentCare Team (Latest Contact Info)Cqqbmuoewhv85/10/2025 1:30 PM ESTOffice Visit [facility] [place] [facility] [address] [facility] [address] [place] [phone] India Infante DIE CAST PATTERNMAKER [address] [place] [address] Chronic bronchitis, unspecified chronic bronchitis type (HCC) [...] and heating?Not very hard04/03/2024HQ-2AnswerDate RecordedPatient Health Questionnaire-2 Zasnp90811/03/2024[facility] [place] of Occupational Health - Occupational Stress QuestionnaireAnswerDate RecordedDo you feel stress - tense, restless, nervous, or anxious, or unable to sleep at night because your mind is troubled all the time - these days?Only a xijklx9204/03/2024Hunger Vital SignAnswerDate RecordedWithin the past 12 months, [...] ValueDate RecordedSex Assigned at BirthNot on fileLegal AvkSnsoht59/15/2023 6:41 PM EDTGender IdentityNot on fileSexual OrientationNot on filedocumented as of this encounter Last Filed Vital Signs Vital SignReadingTime TakenCommentsBlood Mccdgvqg703/7609/02/2025 1:29 PM EST Qmryw107109/02/2025 1:29 PM CKMJplsmodawau86.1 ??C (98.7 ??F)09/02/2025 1:29 PM ESTRespiratory Ozjj705011/03/2024 1:29 PM ESTOxygen Tzthbzxokn29%09/02/2025 1:29 PM ESTInhaled Oxygen Concentration--Fnqcye240 kg (236 lb 3.2 oz)09/02/2025 1:29 PM OUHTjgeef465.7 cm (5' 7.2 )09/02/2025 1:29 PM ESTBody [...] 1:13 PM Nu Walker LPNPatient Health Questionnaire-2 Jokzz86911/03/2024 1:13 PM Nu Walker LPN documented as [...] DateEnd Date Alma Rosa Lozada MD [address] [facility] [address] [place] [address] [facility] - [facility]04/16/23 Alma Rosa Lozada MD [address] [facility] [address] [place] [address] PCP - ACO [facility]09/23/23 Michelle Cuenca PA Physician AssistantNeurology12/17/24documented as of this encounter
--- OUTSIDE RECORDS SUMMARY | 2025-09-14 07:51 | XMS_ITS | Clinical Summary ---
Author Organization [facility] Address [address] [place], [place] [address] Care Team Providers Care Disability Rater Name Role Phone Alma Rosa Lozada MD Primary Care Provider [phone] Horacio Camara MD Unavailable [phone] Allergies Active AllergyReactionsCriticalityNoted DateCommentsMoxifloxacin HclUnknown 11/22/2015Nitrofurantoin Monohyd/M-BtckoEgslxnp99/29/2015MorphineUnknown 11/22/20159469FrrissfjagdpVqglxig70/29/6076UykezmogmqvykhHqdussw40/29/2016 Corticosteroids (Glucocorticoids)Ohzyqcn6411/22/20158492QnngaronjkbtMoilarp11/29/2016 Medications MedicationSigDispense QuantityRefillsLast FilledStart DateEnd DateStatus docusate [...] DateDiagnosed DateModerate episode of recurrent major depressive mriwdjgw63/29/1750Eydlvtgpb24/29/2016Normal coronary sawybpeo97/29/2016Non morbid obesity due to excess pfkmrizm47/29/2016Antidepressants causing adverse effect in therapeutic use11/22/2015 Family History Medical HistoryRelationCommentsblood disorder [Other]FatherRelationStatus CommentsFatherDeceasedMotherAlive Social History Tobacco UseTypesPacks/DayYears UsedDateSmoking Tobacco: Every DayCigarettes0.515 Smokeless Tobacco: NeverAlcohol UseStandard Drinks/WeekCommentsNo0 (1 standard drink = 0.6 oz pure alcohol)CommentsUnknownSex and Gender Information ValueDate RecordedSex Assigned at BirthNot on fileLegal EgmInmjfy03/02/2012 7:29 AM ESTGender IdentityNot on fileSexual OrientationNot on fileOccupationIndustry Job Start DateJob End DatedisabilityNot on fileNot on fileNot on file Last Filed Vital Signs Vital SignReadingTime TakenCommentsBlood Toacpeob899/8311/22/2015 10:16 AM EST large vgzcUlrxi7054/29/2016 10:16 AM ESTTemperature--Respiratory Rate16 11/22/2015 10:16 AM ESTOxygen Rriwqnrqfn37%11/22/2015 10:16 AM ESTInhaled Oxygen Concentration--Eykntd036.6 kg (268 lb)11/22/2015 10:16 AM BIOUliltg841.6 cm (5' 6 )11/22/2015 10:16 AM ESTBody Mass Index43.26011/22/2015 10:16 AM EST Plan of Treatment Health MaintenanceDue DateLast DoneCommentsAnxiety Wwnpxwkzx27/29/1986Depression Jfgcvkdph55/29/1986HIV Twtntpjlh46/29/1986Hepatitis C Vmvgumiln67/29/1986 DTaP,Tdap,Td Vaccine (1 - Tdap)1987Hepatitis B Vaccine (1 of 3 - 19+ 3- dose series)1987Cervical Cancer Nkygcrpsc54/29/1989Mammogram Screening 2008CT Opkzjjvkjaxm22/29/2013Cologuard (FIT-DNA)2013Colonoscopy 2013Colorectal Cancer Ttfxeqdmm64/29/2013Diabetes Kyowfpobu02/29/2013Fecal Occult Blood2013Lipid Wfhykwsyr29/29/5827Pilxjccqgnxye83/29/2013 Pneumococcal Vaccine: 50+ (1 of 1 - PCV)2018Shingrix Vaccine (1 of 2) 2018Covid-19 Vaccine (1 - season)2025Influenza Vaccine (#1) 2025RSV Vaccine (1 - 1-dose 75+ series)2043 Insurance Care Teams Team MemberRelationshipSpecialtyStart DateEnd Date Alma Rosa Lozada MD [address] [facility] 110 [place] [address] PCP - GeneralCardiology02/01/05 Horacio Camara MD [address] [facility] 110 [place] [address] Primary Staff PhysicianCardiology12/10/18
--- OUTSIDE RECORDS SUMMARY | 2025-09-14 07:51 | XMS_ITS | Encounter Summary ---
Author Organization [facility] Address [address] [facility] [place] [address] Care Team Providers Care Institutional Nutrition Consultant Name Role Phone Alma Rosa Lozada MD Primary Care Provider [phone] Alma Rosa Lozada MD Unavailable Michelle Cuenca Unavailable Encounter Details DateTypeDepartmentCare Team (Latest Contact Info)Rhawfwdqwjg63/10/2025Travel Social History Tobacco UseTypesPacks/DayYears UsedDateSmoking Tobacco: Every [...] and heating?Not very hard04/03/2024HQ-2AnswerDate RecordedPatient Health Questionnaire-2 Lpjtz98911/03/2024[facility] [place] of Occupational Health - Occupational Stress QuestionnaireAnswerDate RecordedDo you feel stress - tense, restless, nervous, or anxious, or unable to sleep at night because your mind is troubled all the time - these days?Only a ljqulv6504/03/2024Hunger Vital SignAnswerDate RecordedWithin the past 12 months, [...] ValueDate RecordedSex Assigned at BirthNot on fileLegal SwkKqwmed19/15/2023 6:41 PM EDTGender IdentityNot on fileSexual OrientationNot on filedocumented as of this encounter Plan of Treatment Not on file documented as of this encounter Visit Diagnoses Not on filedocumented in this encounter Additional Health Concerns AssessmentNoted TimePHQ-9 Depression Total Score: 11:00 AM EST documented as of this encounter Care Teams Team MemberRelationshipSpecialtyStart DateEnd Date Alma Rosa Lozada MD [address] [facility] 110 [place] [address] PCP - GeneralFamily Medicine04/16/23 Alma Rosa Lozada MD [address] [place] [address] PCP - ACO Reach09/23/23 Michelle Cuenca PA Physician AssistantNeurology12/17/24documented as of this encounter
--- OUTSIDE RECORDS SUMMARY | 2025-09-14 07:51 | XMS_ITS | Patient Health Record ---
Author Organization [facility] Address [address] [place] [address] Care Team Providers Care President College Or University Name Role Phone Audrey Middleton Primary Care Provider Reason For Referral No Information Medications Medication SIG (Take, Route, Frequency, Duration) Notes Start Date End Date Status Nystatin 010799 units/g topical ointment applied topically as directed four times a day; Duration: fourteen days 04/23/2023ctive Encounters Encounter Location Date Provider Diagnosis [address] [address] 06/08/2025 Aud[address] Jen Do[address] [facility] [place] [address]/Fiorella [facility] [place] [address]/[facility] [address] [place] [address] 03/19/2025Fiorella Jen CastilloDental caries on pit and fissure surface penetrating into dentin K02.52 and Encounter for dental examination and cleaning with abnormal findings Z01.21[facility] [place] [address] 05/26/2025[facility] [place] [address]/Fiorella Jen Dooley Assessments Encounter Date Diagnosis (ICD [...] End Date MEDICARE CGS [address] [facility] [place]NNIE [place] [phone] [id number] Lilian [place] - patient is the [id number] 2022ENTAL MEDICAID [place] [address] [place] [id number], GAILSelf - patient is the [id number] 2022
--- OUTSIDE RECORDS SUMMARY | 2025-09-14 07:51 | XMS_ITS | Encounter Summary ---
Author Organization [facility] Address [address] [facility] [place] [address] Care Team Providers Care Field Marketing Lead Name Role Phone Alma Rosa Lozada MD Primary Care Provider [phone] Alma Rosa Lozada MD Unavailable Michelle Cuenca Unavailable Encounter Details DateTypeDepartmentCare Team (Latest Contact Info)Yfqcluiqqkb28/11/2025bstract [facility] [address] [place] [address] Alma Rosa Lozada MD [address] [facility] 110 [place], [place] [address] Social History Tobacco UseTypesPacks/DayYears UsedDateSmoking Tobacco: Every [...] and heating?Not very hard04/03/2024HQ-2AnswerDate RecordedPatient Health Questionnaire-2 Gobrs10311/03/2024[facility] [place] of Occupational Health - Occupational Stress QuestionnaireAnswerDate RecordedDo you feel stress - tense, restless, nervous, or anxious, or unable to sleep at night because your mind is troubled all the time - these days?Only a wkeuun9404/03/2024Hunger Vital SignAnswerDate RecordedWithin the past 12 months, [...] ValueDate RecordedSex Assigned at BirthNot on fileLegal EeaTnefga26/15/2023 6:41 PM EDTGender IdentityNot on fileSexual OrientationNot on filedocumented as of this encounter Plan of Treatment Not on file documented as of this encounter Visit Diagnoses Not on filedocumented in this encounter Additional Health Concerns AssessmentNoted TimePHQ-9 Depression Total Score: 11:00 AM EST documented as of this encounter Care Teams Team MemberRelationshipSpecialtyStart DateEnd Date Alma Rosa Lozada MD [address] [facility] 110 [place] [address] [facility] - [facility]04/16/23 Alma Rosa Lozada MD [address] [place] [address] PCP - ACO [facility]09/23/23 Michelle Cuenca PA Physician AssistantNeurology12/17/24documented as of this encounter
--- OUTSIDE RECORDS SUMMARY | 2025-09-14 07:51 | XMS_ITS | Clinical Summary ---
Author Organization [facility] Address [address] [facility], [address] [place] [address] Care Team Providers Care Livestock Laborer Name Role Phone Unavailable Primary Care Provider Unavailabl e Social History Tobacco UseTypesPacks/DayYears UsedDateSmoking Tobacco: Never Assessed CommentsUnknownSex and Gender InformationValueDate RecordedSex Assigned at Not on fileLegal VckBghhvj58/18/2019 8:37 AM ESTGender IdentityNot on fileSexual OrientationNot on file Plan of Treatment Not on file Insurance
--- OUTSIDE RECORDS SUMMARY | 2025-09-14 07:51 | XMS_ITS | Encounter Summary ---
Author Organization [facility] Address [address] [place] [address] Care Team Providers Care Real Estate Paralegal Name Role Phone Alma Rosa Lozada MD Primary Care Provider [phone] Alma Rosa Lozada MD Unavailable Michelle Cuenca Unavailable Encounter Details DateTypeDepartmentCare Team (Latest Contact Info)Uasprumedfu30/08/2025Patient Outreach [facility] [address] [place] [address] Lulú Pringle LPN [address] [facility] 110 [place] [address] Social History Tobacco UseTypesPacks/DayYears UsedDateSmoking [...] and heating?Not very hard04/03/2024HQ-2AnswerDate RecordedPatient Health Questionnaire-2 Bwxkg417Finsanpete valley hospital [place] of Occupational Health - Occupational Stress QuestionnaireAnswerDate RecordedDo you feel stress - tense, restless, nervous, or anxious, or unable to sleep at night because your mind is troubled all the time - these days?Only a wdjopv1204/03/2024Hunger Vital SignAnswerDate RecordedWithin the past 12 months, [...] ValueDate RecordedSex Assigned at BirthNot on fileLegal HejInzqrf80/15/2023 6:41 PM EDTGender IdentityNot on fileSexual OrientationNot [...] Flowsheet Row Patient Outreach from 08/31/[address] [facility] with Lulú Pringle LPN Hospital Information ED, Hospital or [facility] Facility Discharge? ED Patient has been contacted within 2 days of being seen in the ED Yes Diagnosis Cervical radiculopathy, Lumbar radiculopathy Discharge Date 08/28/25 Discharged To: Home Setting Discharge Hospital [facility] Engagement Call Start Time 1612 Admission Date [...] of the foot that she describes as vkiv-naj-ikorpaa. She has also been feeling some lightening [...] DateEnd Date Alma Rosa Lozada MD [address] [facility] 110 [place] [address] PCP - GeneralFamily Medicine04/16/23 Alma Rosa Lozada MD [address] [facility] 110 [place] [address] PCP - ACO Reach09/23/23 Michelle Cuenca PA Physician AssistantNeurology12/17/24documented as of this encounter
--- OUTSIDE RECORDS SUMMARY | 2025-09-14 07:51 | XMS_ITS | Encounter Summary ---
Author Organization [facility] Address [address] [place] [address] Care Team Providers Care Arc Welding Machine Operator Name Role Phone Alma Rosa Lozada MD Primary Care Provider [phone] Alma Rosa Lozada MD Unavailable Michelle Cuenca Unavailable Encounter Details DateTypeDepartmentCare Team (Latest Contact Info)Fzpigwoizxl37/08/2025bstract [facility] [address] [place] [address] Lulú Pringle LPN [address] [email or web address] 110 [place] [address] Social History Tobacco UseTypesPacks/DayYears UsedDateSmoking [...] and heating?Not very hard04/03/2024HQ-2AnswerDate RecordedPatient Health Questionnaire-2 Rioox97011/03/2024[facility] [place] of Occupational Health - Occupational Stress QuestionnaireAnswerDate RecordedDo you feel stress - tense, restless, nervous, or anxious, or unable to sleep at night because your mind is troubled all the time - these days?Only a jzvlyd6904/03/2024Hunger Vital SignAnswerDate RecordedWithin the past 12 months, [...] ValueDate RecordedSex Assigned at BirthNot on fileLegal XuhKxltcs72/15/2023 6:41 PM EDTGender IdentityNot on fileSexual OrientationNot on filedocumented as of this encounter Plan of Treatment Not on file documented as of this encounter Visit Diagnoses Not on filedocumented in this encounter Additional Health Concerns AssessmentNoted TimePHQ-9 Depression Total Score: 11:00 AM EST documented as of this encounter Care Teams Team MemberRelationshipSpecialtyStart DateEnd Date Alma Rosa Lozada MD [address] [place] [address] PCP - GeneralFamily Medicine04/16/23 Alma Rosa Lozada MD [address] [place] [address] PCP - ACO [facility]09/23/23 Michelle Cuenca PA Physician AssistantNeurology12/17/24documented as of this encounter
--- OUTSIDE RECORDS SUMMARY | 2025-09-14 07:51 | XMS_ITS | Encounter Summary ---
Author Organization [facility] Address [address] [place] [address] Care Team Providers Care Service Desk Analyst Name Role Phone Alma Rosa Lozada MD Primary Care Provider [phone] Alma Rosa Lozada MD Unavailable Michelle Cuenca Unavailable Reason for Visit * ReasonOnset DateCommentsMedication Pmaqwlsn23/18/2025Was in to see you last week is no better, would like a chest Xray sent to [facility] and didn't know if you wanted to call something else in. Encounter Details DateTypeDepartmentCare Team (Latest Contact Info)Zmhkethwdit16/18/2025Telephone [facility] [address] [place] [address] [place] [address] Ellen Montalvo Medication Question (Was in to see you last week is no better, would like a chest Xray sent to [facility] and didn't know if you wanted to [...] and heating?Not very hard04/03/2024HQ-2AnswerDate RecordedPatient Health Questionnaire-2 Gbrgv93511/03/2024Fin[facility] hospital [place] of Occupational Health - Occupational Stress QuestionnaireAnswerDate RecordedDo you feel stress - tense, restless, nervous, or anxious, or unable to sleep at night because your mind is troubled all the time - these days?Only a wzhjjq5804/03/2024Hunger Vital SignAnswerDate RecordedWithin the past 12 months, [...] ValueDate RecordedSex Assigned at BirthNot on fileLegal IjuCeydny91/15/2023 6:41 PM EDTGender IdentityNot on fileSexual OrientationNot on filedocumented as of this encounter Plan of Treatment Not on file documented as of this encounter Visit Diagnoses Not on filedocumented in this encounter Additional Health Concerns AssessmentNoted TimePHQ-9 Depression Total Score: 11:00 AM EST documented as of this encounter Care Teams Team MemberRelationshipSpecialtyStart DateEnd Date Alma Rosa Lozada MD [address] [facility] 110 [place] [address] PCP - GeneralFamily Medicine04/16/23 Alma Rosa Lozada MD [address] [facility] 110 [place] [address] PCP - ACO [facility]09/23/23 Michelle Cuenca PA Physician AssistantNeurology12/17/24documented as of this encounter
--- OUTSIDE RECORDS SUMMARY | 2025-09-14 07:51 | XMS_ITS | Encounter Summary ---
Author Organization [facility] Address [address] [facility] [place] [address] Care Team Providers Care Arch Pad Cementer Name Role Phone Alma Rosa Lozada MD Primary Care Provider [phone] Alma Rosa Lozada MD Unavailable Michelle Cuenca Unavailable Encounter Details DateTypeDepartmentCare Team (Latest Contact Info)Kwcragowizw70/10/2025amboo flowsheet [facility] [address] [place] [address] India Infante, BAIT PACKER [address] [facility] 110 [place], [place] [address] Social History Tobacco UseTypesPacks/DayYears UsedDateSmoking Tobacco: Every [...] and heating?Not very hard04/03/2024HQ-2AnswerDate RecordedPatient Health Questionnaire-2 Dqzxq06111/03/2024Fin[facility] [place] of Occupational Health - Occupational Stress QuestionnaireAnswerDate RecordedDo you feel stress - tense, restless, nervous, or anxious, or unable to sleep at night because your mind is troubled all the time - these days?Only a hhfhqo6404/03/2024Hunger Vital SignAnswerDate RecordedWithin the past 12 months, [...] ValueDate RecordedSex Assigned at BirthNot on fileLegal CkfUynihk12/15/2023 6:41 PM EDTGender IdentityNot on fileSexual OrientationNot on filedocumented as of this encounter Plan of Treatment Not on file documented as of this encounter Visit Diagnoses Not on filedocumented in this encounter Additional Health Concerns AssessmentNoted TimePHQ-9 Depression Total Score: 11:00 AM EST documented as of this encounter Care Teams Team MemberRelationshipSpecialtyStart DateEnd Date Alma Rosa Lozada MD [address] [facility] 110 [place] [address] [facility]04/16/23 Alma Rosa Lozada MD [address] [place] [address] PCP - ACO [facility]09/23/23 Michelle Cuenca PA Physician AssistantNeurology12/17/24documented as of this encounter
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
--- OUTSIDE RECORDS SUMMARY | 2025-09-14 07:51 | XMS_ITS ---
Author Organization [facility] Address [address] [facility] [place] [address] Care Team Providers Care Hydro Sprayer Operator Name Role Phone Alma Rosa Lozada MD Primary Care Provider [phone] Alma Rosa Lozada MD Unavailable Michelle Cuenca Unavailable Emergency Department Transitional Care Management (TCM) Status:Closed (Closed) Start date:08/28/2025 Enrollment date:08/31/2025 Enrollment reason:Identified using discharge data End date:08/31/2025 Close reason:Assistance not needed Overview Discharged from [facility] ER on 08/28. Please contact within 2 days of discharge for ER [facility] and schedule a follow-up appointment if needed. Continued Care and Services Coordination
--- NOTE | 2025-09-14 07:53 | MR_ITS ---
The [address] [address] Patient Name: KEITH WASHINGTON MRN: [id number] date: 1970 Sex: F Assigned Patient Location: MRI Current Patient Location: MRI Accession/Order Number: [id number] Exam Date: 09/14/2025 08:00 Report Date: 09/14/2025 11:56 At the request of: VERONIKA MALCOLM NP Procedure: MR lumbar spine wo con MRI lumbar spine performed without contrast INDICATION: Lumbosacral radiculopathy, low back pain, paresthesias COMPARISON: Comparison MRI images from 2019 were not available for review. The report was available. FINDINGS: Lumbar vertebral heights are maintained. Modic type II and minimal Modic type III endplate changes L5-S1. Otherwise moderate severe disc space narrowing at L5-S1. Mild disc space narrowing L2-3. Otherwise vertebral heights and alignment and bone marrow signal unremarkable. Incidental hemangioma at T12. Conus medullaris terminates normally at L1-2. Paraspinal soft tissues are unremarkable. T12-L2: No significant disc disease disc protrusion central canal or neural foraminal narrowing identified. L2-3: Broad-based disc bulge with endplate osteophytes extending both foramina zones and facet arthropathy. Mild central canal stenosis. There is mild bilateral neural foraminal narrowing. L3-4: Circumferential disc bulge with itjm-xr-hrsxllgd facet arthropathy. Mild neural foraminal narrowing. Mild to moderate central canal stenosis. L4-5: Disc desiccation with left extraforaminal zone bulge. Moderate facet arthropathy. Canal is patent. Mild left neural foraminal narrowing. Right foramen is patent. L5-S1: Postsurgical changes status post left laminotomy. Circumferential disc osteophyte complex with endplate spurs extending both foramina zones. Left subarticular zone low signal possibly postsurgical change/granulation tissue noted. This contacts the traversing S1 nerve roots without definite effacement or displacement. Otherwise moderate neural foraminal narrowing. MR/MR lumbar spine wo con IMPRESSION: Afvp-yj-[id number] multilevel degenerative changes without high-grade canal or neural foraminal narrowing identified. Impression dictated by: Aleksandr Lynch M.D. 09/14/2025 11:56 AM Dictation Location: [place] [address] Electronically authenticated by: [id number] Y Date: 09/14/2025 11:56
== END 2025-09-14 07:49 | disposition home or self-care (01) ==
LOC: MRI 07:48
PROVIDERS: PCP Family Medicine; Visit Provider Nurse Practitioner Family
DX: M54.17 Radiculopathy, lumbosacral region (principal); M54.50 Low back pain, unspecified; R20.2 Paresthesia of skin; M51.369 Other intervertebral disc degeneration, lumbar region without mention of lumbar back pain or lower extremity pain
CPT/HCPCS: 72148